=== PATIENT | female | born 1970 | race Caucasian/White ===

== ENCOUNTER → 2020-01-12 07:15 | Outpatient (CLI) | payer OTHER, SELFPAY ==
[2020-01-12 07:50] LABS: Hematocrit 42.7 % (37-47); Hemoglobin 13.8 g/dL (12.0-15.0); Mean Corp Hgb Conc 32.3 g/dL (32-36); Mean Corpuscular Hgb 32.3 pg (27.0-32.0); Mean Platelet Vol. 9.8 fl (6.2-12.0); Platelet Count 350 K/mm3 (150-450); RBC Distribution Width CV 14.4 % (11.6-14.6); RBC Distribution Width SD 53.1 fl (35.1-43.9); Red Blood Count 4.27 M/mm3 (4.2-5.4); White Blood Count 7.9 K/mm3 (4.4-11.0)
[2020-01-12 08:22] LABS: AST(SGOT) 45 U/L (15-37); Alanine Aminotransfer ALT/SGPT 60 U/L (13-56); Albumin, Serum 3.6 g/dL (3.2-5.0); Alkaline Phosphatase 76 U/L (45-117); Amylase 30 U/L (25-115); Anion Gap 9 (5-15); BUN 16 mg/dL (7-18); BUN/Creat Ratio 17.2 RATIO (10-20); Calcium,Total 9.3 mg/dL (8.5-10.1); Chloride 106 mmol/L (98-107); Cholesterol 175 mg/dL (200); Creatinine, Serum 0.93 mg/dL (0.55-1.02); EST Glomerular Filtration Rate 68 mL/min (>60); Est Glom Filt Rate - Afr Amer 82 mL/min (>60); Free T3 2.4 pg/mL (2.18-3.98); Globulin 3.6 g/dL (2.2-4.2); Glucose 90 mg/dL (74-106); High Density Lipoprotein 65 mg/dL; Lipase 139 U/L (73-393); Potassium 3.6 mmol/L (3.5-5.1); Protein, Total 7.2 g/dL (6.4-8.2); Sodium Level 142 mmol/L (136-145); T4 Free Direct 1.37 ng/dL (0.76-1.46); Thyroid Stim Hormone (TSH) 4.85 uIU/mL (0.358-3.74); Triglycerides 65 mg/dL; Very Low Density Lipoprotein 13 mg/dL (5-40)
[2020-01-15 05:11] LABS: Cancer Antigen 125 12.4 U/mL (0.0-38.1)
== END ==
LOC: LAB 07:22
PROVIDERS: PCP Nurse Practitioner Primary Care; Referring Provider Nurse Practitioner Primary Care; Visit Provider Nurse Practitioner Primary Care
DX: R10.11 Right upper quadrant pain (principal); I10 Essential (primary) hypertension; E03.9 Hypothyroidism, unspecified; E04.1 Nontoxic single thyroid nodule; E78.5 Hyperlipidemia, unspecified; R53.83 Other fatigue; R68.81 Early satiety
CPT/HCPCS: 80053; 80061; 82150; 83690; 84439; 84443; 84481; 85027; 86304

== ENCOUNTER 2020-12-02 16:11 | Observation (INO) | payer OTHER, SELFPAY ==
[2020-12-02] VITALS (7 sets, daily range): BP systolic 123–165; BP diastolic 73–111; PULSE 74–93; RESP 16–18; TEMP 36.4–37.1; O2SAT 88–95; BMI 36.6; BMI 38.9
--- NOTE | 2020-12-02 16:43 | EKG12_ITS ---
Test Reason : DIZZINESS Blood Pressure : / mmHG Vent. Rate : 081 BPM Atrial Rate : 081 BPM P-R Int : 168 ms QRS Dur : 078 ms QT Int : 396 ms P-R-T Axes : 057 025 038 degrees QTc Int : 460 ms Normal sinus rhythm Septal infarct , age undetermined Abnormal ECG Confirmed by LIO SOMMERS, SANJEEV ([id number]), associate entertainment editor DAMON AGUILAR ([id number]) on 12/04/2020 9:05:31 AM Referred By: WALTER Confirmed By:SANJEEV VACA MD
--- NOTE | 2020-12-02 16:44 | EX.ED.DYSGE1 ---
HPI History of Present Illness Chief Complaint: Dizziness Informant: patient Onset/Context/Timing Onset: Yesterday Timing: Continuous Current Severity: Mild Maximum Severity: Mild Narrative Narrative: 50-year-old female history of hypothyroidism, hypertension and prior breast cancer. States that she has been shaky since yesterday. States that she does not feel good. She denies any headache, chest pain or shortness of breath. She denies any nausea, vomiting or diarrhea. She denies any dysuria. Just says overall she feels very tired and has slept more. She denies any recent hospitalization or illness. Prior similar symptoms: No Recent Illness/Hospitalization: No PFSH PFSH Medical History History of breast cancer HTN (hypertension) Hypothyroid Home Medications hydrochlorothiazide 50 mg PO DAILY 12/02/20 [History Last Taken Unknown] levothyroxine 137 mcg PO DAILY 12/02/20 [History Last Taken Unknown] lisinopril 40 mg PO DAILY 12/02/20 [History Last Taken Unknown] Allergy/AdvReac Type Severity Reaction Status Date / Time dextrose 5 % in water Allergy Hives Verified 12/02/20 16:13 [From Zyvox] linezolid [From Zyvox] Allergy Hives Verified 12/02/20 16:13 Penicillins Allergy Hives Verified 12/02/20 16:12 Sulfa (Sulfonamide Allergy Hives Verified 12/02/20 16:12 Antibiotics) vancomycin Allergy Hives Verified 12/02/20 16:12 Surgical History H/O mastectomy H/O: hysterectomy Social History Smoking Status: Never smoker ROS ROS ED ROS Narrative Middle-aged female with limited other symptoms are not feeling shaky. Review of Systems ROS Unobtainable: Denies due to encephalopathy Constitutional Constitutional ED: Denies fever(s), sweats or weight loss Eyes Eyes: Denies change in vision ENT ENT ED: Denies ear pain or sore throat Cardiovascular Cardiovascular: Denies chest pain or palpitations Respiratory/Chest Respiratory/Chest: Denies cough or dyspnea Gastrointestinal Gastrointestinal: Denies abdominal pain, diarrhea or vomiting Genitourinary Genitourinary ED: Denies dysuria or hematuria Musculoskeletal Musculoskeletal: Denies arthralgias or myalgias Integumentary Denies rash Neurologic Neurologic: Denies headache(s) Psychiatric Psychiatric: Denies depression Endocrine Endocrinology: Denies polyuria Allergic/Immunologic Allergic/Immunologic ED: Denies urticaria EXAM Physical Exam Narrative Exam Narrative: Middle-aged female no acute distress. Seems anxious. Her vital signs are stable afebrile. She does not look septic nor toxic nor dehydrated. Her mother is at bedside. HEENT exam unremarkable. Atraumatic. Pupils round reactive light. Extra motions are intact. Normal speech. No facial droop. Neck nontender. No lymphadenopathy. Lungs clear to auscultation bilaterally. Heart regular rhythm rate about 90 no murmur. Chest wall nontender. Abdomen soft nontender. Patient moving all 4 extremities. Calves nontender without edema. Back nontender. Neurologically she is awake and alert with no focal motor deficits. Const Vital Signs: 12/02/20 16:14 12/02/20 16:41 12/02/20 18:11 Temperature 97.6 F L Temperature Source Temporal Pulse Rate 93 74 Respiratory Rate 16 18 Respiratory Pattern Normal Blood Pressure 165/73 H 123/79 H Blood Pressure Mean 103 93 Pulse Ox 93 94 Oxygen Delivery Method Room Air Room Air 12/02/20 20:00 Temperature Temperature Source Pulse Rate 81 Respiratory Rate 18 Respiratory Pattern Blood Pressure 141/111 H Blood Pressure Mean 121 Pulse Ox 94 Oxygen Delivery Method Room Air HEENT Reports moist mucous membranes Negative for trauma or tenderness Eyes PERRL and EOMs intact bilaterally Neck no lymphadenopathy, supple and no JVD General: Negative for tenderness Chest Wall inspection of chest normal Resp normal respiratory effort and clear to auscultation bilaterally Auscultation: Negative for rales, rhonchi, wheezes or diminished lung sounds Cardio regular rate, regular rhythm and no murmurs GI normal to inspection, nondistended, normoactive bowel sounds, non-tender, non-distended and no masses Auscultation: normoactive bowel sounds Palpation: soft; Negative for tender, guarding or rebound tenderness present Back/Spine no CVA tenderness General Back: Negative for CVA tenderness Extremity normal to inspection General Extremety ED: Negative for edema or tenderness General Extremity: Negative for edema Neuro oriented x3 and CN's II-XII intact bilaterally Sensorium / Orientation: alert; Negative for orientation impaired Motor Exam: strength 5/5 throughout; Negative for general weakness Psych mental status grossly normal Mood & Affect: anxious Skin no rashes or lesions noted and no wounds MDM MDM MDM Narrative Medical decision making narrative: Middle-aged female vital signs are stable afebrile. Clinically seems anxious. States that she has had shakiness for the last 1 to 2 days. Really denies any other symptoms. Exams basically unremarkable. Screening labs are being obtained. Multiple repeat exams no change. Patient I went over all of her test results. I do not have a specific cause for her symptoms. Her exam otherwise is unchanged. I will have her evaluated by the hospitalist. Lab Data Attestation: I reviewed the patient's lab results. Labs: Laboratory Results - last 24 hr 12/02/20 12/02/20 16:39 16:39 WBC 7.2 RBC 4.58 Hgb 15.1 H Hct 44.1 MCV 96.3 MCH 33.0 H MCHC 34.2 RDW Std Deviation 50.6 H RDW Coeff of [place] 14.3 Plt Count 440 MPV 8.8 Immature Gran % (Auto) 0.300 Neut % (Auto) 48.4 Lymph % (Auto) 38.9 [place] % (Auto) 9.6 Eos % (Auto) 1.8 Baso % (Auto) 1.0 Absolute Neuts (auto) 3.5 Absolute Lymphs (auto) 2.80 Nucleated RBC % 0 Sodium 129 L Potassium 3.6 Chloride 92 L Carbon Dioxide 25.0 Anion Gap 12 BUN 11 Creatinine 0.85 Estim Creat Clear Calc 61.23 Est GFR (MDRD) Af Amer 90 Est GFR (MDRD) Non-Af 74 BUN/Creatinine Ratio 12.9 Glucose 94 Calcium 8.7 TSH 1.58 CBC unremarkable with a white count of 7 and hemoglobin of 15. No bands. Electrolytes unremarkable except her sodium is low at 129. Normal gap at 12. Normal creatinine. TSH is normal. CAT scan was obtained without contrast of the brain shows no acute abnormality. Reviewed by me and read by the radiologist. EKG showed a normal sinus rhythm with a rate of 81. Radiography Diagnostic Testing: Radiology Impression Brain CT 12/02/20 19:38 IMPRESSION: No acute intracranial findings. Individualized dose optimization techniques were used for this CT. at 2009 Reported and signed by: Rah Haskins MD Electronically Signed: Rah Haskins MD at 20:08 EDT Tel , Service support , EKG Initial EKG: Attestation: I personally reviewed and interpreted this EKG as follows: Interpretation: Sinus Rhythm and No Acute Injury Pattern Comments: Normal sinus rhythm rate 81 without any acute signs of VA nor ischemia. Prior EKG tracings: not available for review Discharge Plan Triage Chief Complaint: Dizziness ED Provider: Indio Schuster Dx/Rx/DC Orders Clinical Impression: Acute hyponatremia, Shakiness Prescriptions: No Action hydrochlorothiazide 50 mg Tablet 50 mg PO DAILY RF: 0 lisinopril 40 mg Tablet 40 mg PO DAILY RF: 0 levothyroxine 137 mcg Capsule 137 mcg PO DAILY RF: 0 Primary Care Provider: Care Physician,No Primary Referrals: Care Physician,No Primary [Primary Care Provider] -
[2020-12-02 17:08] LABS: Absolute Neutrophil Count 3.5 X10^3/uL (2.0-7.7); Basophil# 0.07 X10^3/uL; Eosinophil# 0.13 X10^3/uL; Eosinophils% 1.8 % (0-5); Hematocrit 44.1 % (37-47); Hemoglobin 15.1 g/dL (12.0-15.0); Lymphocyte % 38.9 % (19-41); Mean Corp Hgb Conc 34.2 g/dL (32-36); Mean Corpuscular Volume 96.3 fL (81-99); Mean Platelet Vol. 8.8 fl (6.2-12.0); Monocyte# 0.69 X10^3/uL; Monocyte% 9.6 % (0-10); NRBC Flagged by Analyzer 0 % (0-5); Neutrophil # 3.49 X10^3/uL (2.7-7.7); Neutrophil % 48.4 % (47-70); Platelet Count 440 K/mm3 (150-450); RBC Distribution Width CV 14.3 % (11.6-14.6); RBC Distribution Width SD 50.6 fl (35.1-43.9); Red Blood Count 4.58 M/mm3 (4.2-5.4); White Blood Count 7.2 K/mm3 (4.4-11.0)
[2020-12-02 17:43] LABS: Anion Gap 12 (5-15); BUN 11 mg/dL (7-18); BUN/Creat Ratio 12.9 RATIO (10-20); Calcium,Total 8.7 mg/dL (8.5-10.1); Chloride 92 mmol/L (98-107); Creatinine, Serum 0.85 mg/dL (0.55-1.02); EST Glomerular Filtration Rate 74 mL/min (>60); Est Glom Filt Rate - Afr Amer 90 mL/min (>60); Estimated Creatinine Clearance 61.23 ml/min; Glucose 94 mg/dL (74-106); Potassium 3.6 mmol/L (3.5-5.1); Sodium Level 129 mmol/L (136-145); Thyroid Stim Hormone (TSH) 1.58 uIU/mL (0.358-3.74)
--- NOTE | 2020-12-02 19:38 | CT_ITS ---
HISTORY: ms change TECHNIQUE: Multiple axial images were obtained of the brain without intravenous contrast. A radiation dose optimization technique was used for this scan. IV Contrast dosage and agent: None. COMPARISON: None FINDINGS: # of images incl. paperwork: 239 PARANASAL SINUSES AND MASTOID AIR CELLS: Clear. INTRACRANIAL HEMORRHAGE: None. BRAIN PARENCHYMA: No CT evidence of stroke. No intracranial masses. There is preservation of the shearer/white matter interface. Posterior fossa structures are unremarkable. CSF SPACES: Appropriate for age. There is no hydrocephalus. MASS EFFECT: None. CALVARIUM: Intact. CT/Brain/Head without Contrast IMPRESSION: No acute intracranial findings. Individualized dose optimization techniques were used for this CT. at 2009 Reported and signed by: Rah Haskins MD Electronically Signed: Rah Haskins MD at 20:08 EDT Tel , Service support ,
[2020-12-02] MEDS: Ondansetron 4 MG/2 ML Vial IV (20:02)
[2020-12-02] MEDS: Ketorolac 30 MG/ML Syringe IV (20:03)
--- NOTE | 2020-12-02 20:53 | PCM.HP.STD ---
HPI - General HPI Narrative ORA ADAMS, is a 50 F who presents today with dizziness. Patient reports that it feels like going back and forth sensation in her head and that this has led to her feeling anxious. Patient reports that she has basically been more over the past 2 days. Patient denies fever, chills, shortness of breath, chest pain, nausea, vomiting. Patient states that she does not feel right but denies feeling ill. Patient past medical history includes hypertension, hypothyroidism and breast cancer for which she underwent a bilateral mastectomy. [facility] Medical History History of breast cancer HTN (hypertension) Hypothyroid Home Medications hydrochlorothiazide 50 mg PO DAILY 12/02/20 [History Last Taken 12/01/20] levothyroxine 137 mcg PO DAILY 12/02/20 [History Last Taken 12/01/20] lisinopril 40 mg PO DAILY 12/02/20 [History Last Taken 12/01/20] omeprazole 40 mg PO DAILY 12/02/20 [History Last Taken 11/30/20] trazodone 25 - 50 mg PO DAILY 12/02/20 [History Last Taken 1 Week Ago ~11/25/20] Allergy/AdvReac Type Severity Reaction Status Date / Time dextrose 5 % in water Allergy Hives Verified 12/02/20 16:13 [From Zyvox] linezolid [From Zyvox] Allergy Hives Verified 12/02/20 16:13 Penicillins Allergy Hives Verified 12/02/20 16:12 Sulfa (Sulfonamide Allergy Hives Verified 12/02/20 16:12 Antibiotics) vancomycin Allergy Hives Verified 12/02/20 16:12 Surgical History H/O mastectomy H/O: hysterectomy Social History Smoking Status: Never smoker ROS Constitutional Constitutional: Reports daytime sleepiness, lethargy and poor appetite; Denies anorexia or fever(s) Cardiovascular Cardiovascular: Denies chest pain, edema or palpitations Respiratory/Chest Respiratory/Chest: Denies cough, hemoptysis, shortness of breath at rest or shortness of breath with exertion Gastrointestinal Gastrointestinal: Denies abdominal pain, constipation, diarrhea, nausea or vomiting Genitourinary Genitourinary: Denies dysuria Musculoskeletal Musculoskeletal: Denies back pain, extremity pain or joint pain Integumentary Integumentary: Denies dry skin, rash or wounds Neurologic Neurologic: Reports abnormal movements, abnormal speech, disequilibrium, dizziness and lack of coordination Psychiatric Psychiatric: Reports anxiety Hematologic/Lymphatic Hematologic/Lymphatic: Denies easy bleeding or easy bruising Vital Signs Vital Signs Vital Signs: 12/02/20 16:14 12/02/20 16:41 12/02/20 18:11 Temperature 97.6 F L Temperature Source Temporal Pulse Rate 93 74 Respiratory Rate 16 18 Respiratory Pattern Normal Blood Pressure 165/73 H 123/79 H Blood Pressure Mean 103 93 Pulse Ox 93 94 Oxygen Delivery Method Room Air Room Air 12/02/20 20:00 Temperature Temperature Source Pulse Rate 81 Respiratory Rate 18 Respiratory Pattern Blood Pressure 141/111 H Blood Pressure Mean 121 Pulse Ox 94 Oxygen Delivery Method Room Air Physical Exam Const alert and oriented x3 General Appearance: cooperative HEENT normocephalic and head/scalp atraumatic Eyes PERRL and EOMs intact bilaterally Neck supple, no JVD and thyroid normal General: trachea midline Lymph Lymphatic: no lymphadenopathy noted Resp normal respiratory effort, normal air movement and clear to auscultation bilaterally Cardio regular rate, regular rhythm, S1 normal heart sound and S2 normal heart sound GI normal to inspection, nondistended, normoactive bowel sounds, soft to palpation and non-distended Extremity normal capillary refill and no clubbing, cyanosis or edema General Extremity: no tenderness to palpation of joints or extremities Skin General Skin Exam: no breakdown and turgor normal Lesions: no lesions Rashes: no rashes Neuro Sensorium / Orientation: awake, alert, oriented to person, oriented to place and oriented to time Speech: speech abnormal Details: Positive for stuttering Gait (Neuro): ataxic Psych Mood & Affect: anxious Lab / Micro Data Result Diagrams: 12/02/20 16:39 12/02/20 16:39 Labs: Laboratory Results - last 24 hr 12/02/20 12/02/20 16:39 16:39 WBC 7.2 RBC 4.58 Hgb 15.1 H Hct 44.1 MCV 96.3 MCH 33.0 H MCHC 34.2 RDW Std Deviation 50.6 H RDW Coeff of [place] 14.3 Plt Count 440 MPV 8.8 Immature Gran % (Auto) 0.300 Neut % (Auto) 48.4 Lymph % (Auto) 38.9 [place] % (Auto) 9.6 Eos % (Auto) 1.8 Baso % (Auto) 1.0 Absolute Neuts (auto) 3.5 Absolute Lymphs (auto) 2.80 Nucleated RBC % 0 Sodium 129 L Potassium 3.6 Chloride 92 L Carbon Dioxide 25.0 Anion Gap 12 BUN 11 Creatinine 0.85 Estim Creat Clear Calc 61.23 Est GFR (MDRD) Af Amer 90 Est GFR (MDRD) Non-Af 74 BUN/Creatinine Ratio 12.9 Glucose 94 Calcium 8.7 TSH 1.[address] 12/02/20 19:38 IMPRESSION: No acute intracranial findings. Individualized dose optimization techniques were used for this CT. at 2009 Reported and signed by: Rah Haskins MD Electronically Signed: Rah Haskins MD at 20:08 EDT Tel , Service support , Assessment & Plan Assessment/Plan (1) Acute hyponatremia: (2) Shakiness: PLAN: 1.Acute hyponatremia -Admit to PCU for observation, likely due to use of diuretics -NS 100ml/hr -VS per protocol -CBC, CMP, Phos in am -Mg level now -Urine sodium and chloride ordered -Hold HCTZ for now 2.Shakiness -PT/OT to eval and treat -PRN ativan ordered Will continue medications for patients chronic conditions with the exception of HCTZ. DVT prophylaxis-not indicated observation status This patient was seen by Jocy Dickey, NATALIIA-C under the supervision of Dr. Weinstein
[2020-12-02 21:32] LABS: Magnesium 2.2 mg/dL (1.6-2.6)
[2020-12-02] MEDS: LORazepam 2 MG/ML Syringe 1 MG IV (21:43)
[2020-12-03] VITALS (11 sets, daily range): BP systolic 121–136; BP diastolic 80–94; PULSE 67–105; RESP 15–18; TEMP 36.2–37.2; O2SAT 92–96
[2020-12-03] MEDS: 0.9% Normal Saline 1,000 ML 100 ML IV ×2 (00:15→09:26)
[2020-12-03] MEDS: traZODone 50 MG Tablet 25 MG PO ×2 (00:15→21:25)
[2020-12-03] MEDS: Ondansetron 4 MG/2 ML Vial IV ×2 (02:16→09:27)
[2020-12-03] MEDS: proMETHazine 25 MG/ML Syringe 12.5 MG IM (04:32)
[2020-12-03] MEDS: LORazepam 2 MG/ML Syringe 1 MG IV (04:39)
[2020-12-03] MEDS: Levothyroxine 137 MCG Tablet PO (05:04)
[2020-12-03 06:31] LABS: Absolute Lymphocyte Count 0.99 X10^3/uL (0.83-4.51); Absolute Neutrophil Count 6.1 X10^3/uL (2.0-7.7); Basophil# 0.05 X10^3/uL; Basophil% 0.6 % (0-1); Eosinophil# 0.04 X10^3/uL; Eosinophils% 0.5 % (0-5); Hematocrit 41.6 % (37-47); Hemoglobin 14.1 g/dL (12.0-15.0); Lymphocyte # 0.99 X10^3/ul (0.83-4.51); Lymphocyte % 12.7 % (19-41); Mean Corp Hgb Conc 33.9 g/dL (32-36); Mean Corpuscular Hgb 32.9 pg (27.0-32.0); Mean Corpuscular Volume 97.2 fL (81-99); Monocyte# 0.58 X10^3/uL; Monocyte% 7.5 % (0-10); NRBC Flagged by Analyzer 0 % (0-5); Neutrophil # 6.07 X10^3/uL (2.7-7.7); Neutrophil % 78.2 % (47-70); Platelet Count 379 K/mm3 (150-450); RBC Distribution Width SD 50.1 fl (35.1-43.9); Red Blood Count 4.28 M/mm3 (4.2-5.4); White Blood Count 7.8 K/mm3 (4.4-11.0)
[2020-12-03 06:58] LABS: ALB/GLOB Ratio 0.9 RATIO (0.9-2.4); AST(SGOT) 109 U/L (15-37); Alanine Aminotransfer ALT/SGPT 80 U/L (13-56); Albumin, Serum 3.3 g/dL (3.2-5.0); Alkaline Phosphatase 72 U/L (45-117); Anion Gap 11 (5-15); BUN 13 mg/dL (7-18); BUN/Creat Ratio 16.1 RATIO (10-20); Calcium,Total 8.1 mg/dL (8.5-10.1); Chloride 94 mmol/L (98-107); Creatinine, Serum 0.81 mg/dL (0.55-1.02); EST Glomerular Filtration Rate 79 mL/min (>60); Est Glom Filt Rate - Afr Amer 96 mL/min (>60); Estimated Creatinine Clearance 64.26 ml/min; Globulin 3.7 g/dL (2.2-4.2); Glucose 89 mg/dL (74-106); Phosphorus 2.8 mg/dL (2.5-4.9); Potassium 3.6 mmol/L (3.5-5.1); Sodium Level 131 mmol/L (136-145)
[2020-12-03] MEDS: Pantoprazole Sodium 40 MG Tablet PO (09:29)
[2020-12-03] MEDS: Lisinopril 40 MG Tablet PO (09:30)
[2020-12-03 11:54] LABS: Urine Chloride < 10 mmol/L (Not Establ.); Urine Sodium 5 mmol/L (Not Establ.)
--- NOTE | 2020-12-03 12:27 | PCM.PN.HOSP ---
Subjective Subjective: Patient was seen and examined. She has not had any tremors today. She admits to drinking 1-2 cocktails a day and the size is quite significant. She drinks vodka every day. She denied any history of alcohol withdrawal. She denied any recent change in her medication. Objective Data Objective Data Vital Signs: Vital Signs Temp Pulse Resp BP Pulse Ox 97.9 F 104 H 16 121/86 H 93 12/03/20 09:20 12/03/20 09:20 12/03/20 09:20 12/03/20 09:20 12/03/20 09:20 Oxygen Flow Rate (L/min) 2 Oxygen Delivery Method Room Air Weight: 96.6 kg Body Mass Index (BMI) 38.9 Intake & Output: Intake and Output for Last 24 Hours 12/01/20 12/02/20 12/03/20 23:59 23:59 23:59 Intake Total 1478.33 / 1478.33 Balance 1478.33 / 1478.33 Lab / Micro Data Result Diagrams: 12/03/20 06:04 12/03/20 06:04 Labs: Laboratory Results - last 24 hr 12/02/20 12/02/20 12/02/20 16:39 16:39 16:39 WBC 7.2 RBC 4.58 Hgb 15.1 H Hct 44.1 MCV 96.3 MCH 33.0 H MCHC 34.2 RDW Std Deviation 50.6 H RDW Coeff of [place] 14.3 Plt Count 440 MPV 8.8 Immature Gran % (Auto) 0.300 Neut % (Auto) 48.4 Lymph % (Auto) 38.9 [place] % (Auto) 9.6 Eos % (Auto) 1.8 Baso % (Auto) 1.0 Absolute Neuts (auto) 3.5 Absolute Lymphs (auto) 2.80 Nucleated RBC % 0 Sodium 129 L Potassium 3.6 Chloride 92 L Carbon Dioxide 25.0 Anion Gap 12 BUN 11 Creatinine 0.85 Estim Creat Clear Calc 61.23 Est GFR (MDRD) Af Amer 90 Est GFR (MDRD) Non-Af 74 BUN/Creatinine Ratio 12.9 Glucose 94 Calcium 8.7 Phosphorus Magnesium 2.2 Total Bilirubin AST ALT Alkaline Phosphatase Total Protein Albumin Globulin Albumin/Globulin Ratio TSH 1.58 Ur Random Sodium Urine Chloride 12/03/20 12/03/20 12/03/20 06:04 06:04 11:11 WBC 7.8 RBC 4.28 Hgb 14.1 Hct 41.6 MCV 97.2 MCH 32.9 H MCHC 33.9 RDW Std Deviation 50.1 H RDW Coeff of [place] 14.0 Plt Count 379 MPV 9.0 Immature Gran % (Auto) 0.500 Neut % (Auto) 78.2 H Lymph % (Auto) 12.7 L [place] % (Auto) 7.5 Eos % (Auto) 0.5 Baso % (Auto) 0.6 Absolute Neuts (auto) 6.1 Absolute Lymphs (auto) 0.99 Nucleated RBC % 0 Sodium 131 L Potassium 3.6 Chloride 94 L Carbon Dioxide 26.0 Anion Gap 11 BUN 13 Creatinine 0.81 Estim Creat Clear Calc 64.26 Est GFR (MDRD) Af Amer 96 Est GFR (MDRD) Non-Af 79 BUN/Creatinine Ratio 16.1 Glucose 89 Calcium 8.1 L Phosphorus 2.8 Magnesium Total Bilirubin 1.60 H AST 109 H ALT 80 H Alkaline Phosphatase 72 Total Protein 7.0 Albumin 3.3 Globulin 3.7 Albumin/Globulin Ratio 0.9 TSH Ur Random Sodium 5 Urine Chloride < 10 Radiography Diagnostic Testing: Radiology Impression Brain CT 12/02/20 19:38 IMPRESSION: No acute intracranial findings. Individualized dose optimization techniques were used for this CT. at 2009 Reported and signed by: Rah Haskins MD Electronically Signed: Rah Haskins MD at 20:08 EDT Tel , Service support , Physical Exam Narrative Physical exam: General: Alert, Oriented x3, Cooperative, No apparent distress, Well developed HEENT: Atraumatic Oral: Moist Mucosa Neck: Supple Lungs: Clear to auscultation Cardiovascular: HS I+II, regular, no murmurs Abdomen: Bowel Sounds Present, Soft, Non Tender Extremities: No edema Skin: No rashes, No breakdown Neurological: Grossly intact Psych/Mental Status: Appropriate Assessment & Plan Assessment/Plan (1) Acute hyponatremia: (2) Shakiness: PLAN: 1.Acute hyponatremia, improved from 129-131 Likely etiology is from chronic alcohol use versus increase water intake versus hydrochlorothiazide use TSH is normal Will discontinue IV fluids Continue to hold off on hydrochlorothiazide Repeat BMP in a.m. 2.Tremors likely related to chronic alcohol use versus alcohol withdrawal Tremors improved with Ativan 3. Elevated liver function tests secondary to chronic alcohol use Trend labs in a.m. 4. Rest of her chronic medical conditions including anxiety and hypothyroidism -Home medication continued Visit Charges Inpatient E&M: 18650 Subs Hosp L2
[2020-12-03] MEDS: Acetaminophen 325 MG Tablet 650 MG PO (20:18)
[2020-12-04] VITALS (7 sets, daily range): BP systolic 115–135; BP diastolic 77–95; PULSE 51–72; RESP 16; TEMP 36.7–36.9; O2SAT 93–98
[2020-12-04] MEDS: Levothyroxine 137 MCG Tablet PO (05:58)
[2020-12-04] MEDS: 0.9% Saline Lock 10 ML Syringe IV (06:01)
[2020-12-04 06:58] LABS: Absolute Lymphocyte Count 0.94 X10^3/uL (0.83-4.51); Basophil# 0.04 X10^3/uL; Basophil% 0.9 % (0-1); Eosinophil# 0.13 X10^3/uL; Eosinophils% 2.8 % (0-5); Hematocrit 40.3 % (37-47); Hemoglobin 13.5 g/dL (12.0-15.0); Lymphocyte # 0.94 X10^3/ul (0.83-4.51); Lymphocyte % 20.4 % (19-41); Mean Corp Hgb Conc 33.5 g/dL (32-36); Mean Corpuscular Hgb 33.2 pg (27.0-32.0); Mean Platelet Vol. 9.1 fl (6.2-12.0); Monocyte# 0.46 X10^3/uL; NRBC Flagged by Analyzer 0 % (0-5); Neutrophil # 3.02 X10^3/uL (2.7-7.7); Neutrophil % 65.7 % (47-70); Platelet Count 317 K/mm3 (150-450); RBC Distribution Width CV 14.4 % (11.6-14.6); RBC Distribution Width SD 52.3 fl (35.1-43.9); Red Blood Count 4.07 M/mm3 (4.2-5.4); White Blood Count 4.6 K/mm3 (4.4-11.0)
[2020-12-04 07:30] LABS: ALB/GLOB Ratio 0.9 RATIO (0.9-2.4); AST(SGOT) 74 U/L (15-37); Alanine Aminotransfer ALT/SGPT 64 U/L (13-56); Albumin, Serum 3.1 g/dL (3.2-5.0); Alkaline Phosphatase 66 U/L (45-117); Anion Gap 7 (5-15); BUN 13 mg/dL (7-18); BUN/Creat Ratio 14.2 RATIO (10-20); Calcium,Total 8.9 mg/dL (8.5-10.1); Chloride 96 mmol/L (98-107); Creatinine, Serum 0.92 mg/dL (0.55-1.02); EST Glomerular Filtration Rate 69 mL/min (>60); Est Glom Filt Rate - Afr Amer 83 mL/min (>60); Estimated Creatinine Clearance 56.57 ml/min; Globulin 3.5 g/dL (2.2-4.2); Glucose 103 mg/dL (74-106); Potassium 3.7 mmol/L (3.5-5.1); Protein, Total 6.6 g/dL (6.4-8.2); Sodium Level 131 mmol/L (136-145)
--- NOTE | 2020-12-04 08:33 | US_ITS ---
STUDY: ABDOMINAL ULTRASOUND - RIGHT UPPER QUADRANT REASON FOR VISIT: Female, 50 years old Elevated liver enzymes TECHNIQUE: Ultrasound evaluation of the right upper quadrant was performed with real-time and static shearer-scale imaging. TECHNICAL QUALITY: Adequate. COMPARISON: None. FINDINGS: Liver: The liver is enlarged and measures 20.1 cm. There is increased echogenicity consistent with fatty infiltration. The bile ducts are within normal limits. There is hepatic color flow. The direction of portal flow is hepatopetal. There is no demonstrated mass lesion. Gallbladder: Normal distended gallbladder. The gallbladder wall measures 2.0 mm. There is a negative sonographic [place]''s sign. There is no pericholecystic fluid. There are no gallstones. Common Bile Duct (C.B.D.): The common bile duct measures 4 mm. Pancreas: Normal size of the head, body and tail of the pancreas. There is increased echogenicity of the pancreas. There is no demonstrated pancreatic mass or cyst. Right Kidney: Normal size of the right kidney. The right kidney measures 10.4 cm x 5.8 cm x 4.6 cm. Normal renal cortex. The right cortex measures 1.1 cm. There is no demonstrated renal mass or cyst. There is no right hydronephrosis. US/Liver IMPRESSION: Hepatomegaly and diffuse fatty infiltration of the liver. Electronically Signed: Ian Felton MD at 10:47 EDT , Service support ,
[2020-12-04 09:08] LABS: Bilirubin, Direct 0.57 mg/dL (0.00-0.30)
[2020-12-04] MEDS: Pantoprazole Sodium 40 MG Tablet PO (10:17)
[2020-12-04] MEDS: Lisinopril 40 MG Tablet PO (10:17)
--- NOTE | 2020-12-04 13:05 | DS.PCM_ITS ---
Providers Date of Admission: 12/02/20 Date of Discharge: 12/04/20 Primary Care Physician: No Primary Care Phys Reason For Visit: DIZZINESS / ANXIOUS Diagnosis Discharge Diagnosis (1) Acute hyponatremia: Status: Acute Code(s): E87.1 - Hypo-osmolality and hyponatremia (2) Shakiness: Status: Resolved Code(s): R25.1 - Tremor, unspecified (3) Elevated liver enzymes: Status: Acute Code(s): R74.8 - Abnormal levels of other serum enzymes (4) Alcohol abuse: Status: Chronic Code(s): F10.10 - Alcohol abuse, uncomplicated Medications at Discharge Home Medications levothyroxine 137 mcg PO DAILY 12/02/20 lisinopril 40 mg PO DAILY 12/02/20 omeprazole 40 mg PO DAILY 12/02/20 trazodone 25 - 50 mg PO QHS PRN 12/02/20 Hospital Course Operations None Procedures None and - (liver ultrasound 12/04/20) Summary of Care Provided Minutes Spent on Discharge: 45 Hospital Course: 50 y/o female with PMHx of chronic alcohol use comes with complains of dizziness and shakiness/tremors. Patient drinks 1-2 drinks of vodka daily. She has not stopped or decreased it. She has not gone over either. Patient's TSH was normal - 1.58. She was admitted to the telemetry floor and monitored. Her periods of shakiness are improved with Ativan. Discussed the possibility of alcohol withdrawal or alcohol-related tremors with patient. Recommended that she gradually quit. Recommended referral to [facility]. Patient did not want to see 180 during the hospital stay. She had hyponatremia that improved. She had hypokalemia that resolved. She had elevated liver function tests, that gradually improved. She was asked to follow-up with her primary care doctor within 1 week for repeat blood work Physical Exam Narrative General: Alert, Oriented x3, Cooperative, No apparent distress, Well developed HEENT: Atraumatic Oral: Moist Mucosa Neck: Supple Lungs: Clear to auscultation Cardiovascular: HS I+II, regular, no murmurs Abdomen: Bowel Sounds Present, Soft, Non Tender Extremities: No edema Skin: No rashes, No breakdown Neurological: Grossly intact Psych/Mental Status: Appropriate ABG / Lab / Microbiology Data Result Diagrams: 12/04/20 06:35 12/04/20 06:35 Laboratory: Laboratory Results - last 24 hr 12/04/20 12/04/20 12/04/20 06:35 06:35 06:35 WBC 4.6 RBC 4.07 L Hgb 13.5 Hct 40.3 MCV 99.0 MCH 33.2 H MCHC 33.5 RDW Std Deviation 52.3 H RDW Coeff of [place] 14.4 Plt Count 317 MPV 9.1 Immature Gran % (Auto) 0.200 Neut % (Auto) 65.7 Lymph % (Auto) 20.4 [place] % (Auto) 10.0 Eos % (Auto) 2.8 Baso % (Auto) 0.9 Absolute Neuts (auto) 3.0 Absolute Lymphs (auto) 0.94 Nucleated RBC % 0 Sodium 131 L Potassium 3.7 Chloride 96 L Carbon Dioxide 28.0 Anion Gap 7 BUN 13 Creatinine 0.92 Estim Creat Clear Calc 56.57 Est GFR (MDRD) Af Amer 83 Est GFR (MDRD) Non-Af 69 BUN/Creatinine Ratio 14.2 Glucose 103 Calcium 8.9 Total Bilirubin 3.10 H 3.10 H Direct Bilirubin 0.57 H Indirect Bilirubin 2.50 H AST 74 H ALT 64 H Alkaline Phosphatase 66 Total Protein 6.6 Albumin 3.1 L Globulin 3.5 Albumin/Globulin Ratio 0.9 Radiography Diagnostic Testing: Radiology Impression Liver Ultrasound 12/04/20 08:33 IMPRESSION: Hepatomegaly and diffuse fatty infiltration of the liver. Electronically Signed: Ian Felton MD at 10:47 EDT , Service support , D/C Instructions Discharge Diet: 2000 mg Sodium Diet Discharge Activity: Return to Normal Activity Meaningful Use Info Meaningful Use Diagnoses (Choose all that apply): None applicable Discharge Plan Admission Admit Date/Time: 12/02/20 20:52 Primary Reason for Your Visit: Acute hyponatremia Attending Provider: Lyn Gonzalez Primary Care Provider: Care PhysicianAriadna Primary Instructions Additional Instructions / Restrictions: Patient Problems: Altered Health Status related to Hospitalization Patient Goals: *Optimal Level of Health *Keep Appointments *Medication Compliance *Remain SafeTake note of changes to your medication. You need to have blood work to check on your kidney and liver function within 1 to 2 weeks. Continue to abstain from alcohol. You have been given resources for [facility]. Continue to measure your blood pressure daily. Let your physician know if your blood pressure is elevated more than 160/90. Discharge Orders/Prescriptions Prescriptions: Continued lisinopril 40 mg Tablet 40 mg PO DAILY RF: 0 levothyroxine 137 mcg Capsule 137 mcg PO DAILY RF: 0 trazodone 50 mg tablet 25 - 50 mg PO QHS PRN (Reason: Sleep) RF: 0 omeprazole 40 mg capsule,delayed release(DR/EC) 40 mg PO DAILY RF: 0 Discontinued hydrochlorothiazide 50 mg Tablet 50 mg PO DAILY RF: 0 Referrals / Follow Up: Care Physician,No Primary [Primary Care Provider] - Within 2 Weeks Disposition Disposition (needs filled in before D/C Order can be placed): Home, self care Visit Charges OBSV E&M: [id number] Observation care discharge
--- NOTE | 2020-12-04 13:05 | PCM.DC ---
Discharge Instructions Diet Discharge Diet: 2000 mg Sodium Diet Activity Discharge Activity: Return to Normal Activity Follow Up Care Test Results: Test results from this visit will be discussed in further detail at your follow-up appointment, if applicable. Discharge Plan Admission Admit Date/Time: 12/02/20 20:52 Primary Reason for Your Visit: Acute hyponatremia Attending Provider: Lyn Gonzalez Primary Care Provider: Azeb Physician,Ariadna Primary Instructions Additional Instructions / Restrictions: Take note of changes to your medication. You need to have blood work to check on your kidney and liver function within 1 to 2 weeks. Continue to abstain from alcohol. You have been given resources for [facility]. Continue to measure your blood pressure daily. Let your physician know if your blood pressure is elevated more than 160/90. Discharge Orders/Prescriptions Prescriptions: Continued lisinopril 40 mg Tablet 40 mg PO DAILY RF: 0 levothyroxine 137 mcg Capsule 137 mcg PO DAILY RF: 0 trazodone 50 mg tablet 25 - 50 mg PO QHS PRN (Reason: Sleep) RF: 0 omeprazole 40 mg capsule,delayed release(DR/EC) 40 mg PO DAILY RF: 0 Discontinued hydrochlorothiazide 50 mg Tablet 50 mg PO DAILY RF: 0 Referrals / Follow Up: Care Physician,No Primary [Primary Care Provider] - Within 2 Weeks Disposition Disposition (needs filled in before D/C Order can be placed): Home, self care
== END 2020-12-04 13:05 | disposition home or self-care (01) ==
LOC: ED 16:55 → PCU 21:56
PROVIDERS: Nurse Practitioner Family; Admitting Provider Family Medicine; Emergency Provider Emergency Medicine; Visit Provider Internal Medicine
DX: R42 Dizziness and giddiness (principal); F41.9 Anxiety disorder, unspecified; F10.10 Alcohol abuse, uncomplicated; R25.1 Tremor, unspecified; E87.1 Hypo-osmolality and hyponatremia; E03.9 Hypothyroidism, unspecified; I10 Essential (primary) hypertension; Z85.3 Personal history of malignant neoplasm of breast; Z79.899 Other long term (current) drug therapy
CPT/HCPCS: 36415; 70450; 76705; 80048; 80053; 82247; 82248; 82436; 83735; 84100; 84300; 84443; 85025; 93005; 96361; 96372; 96374; 96375; 96376; 99218; 99285; J7030; A4216; G0378; J2405

== ENCOUNTER 2022-09-07 13:34 | Emergency (ER) | payer OTHER, SELFPAY ==
[2022-09-07 13:35] VITALS: PULSE 96; RESP 16; TEMP 35.9; O2SAT 97; BMI 44.8
--- NOTE | 2022-09-07 13:38 | RAD_ITS ---
STUDY: X-RAY - RIGHT ANKLE REASON FOR EXAM: Female, 51 years old. Pain following injury. TECHNIQUE: 3 view(s) of the ankle. COMPARISON: None. FINDINGS: Normal visualized distal tibia and fibula. Nondisplaced transverse fracture of the lateral malleolus. Normal tibiotalar articulation and ankle mortise. Normal visualized talus and calcaneus. The visualized subtalar, talonavicular, calcaneocuboid and tarsal articulations are normal. Soft tissue swelling. RAD/Ankle min 3 Views IMPRESSION: Nondisplaced transverse fracture of the lateral malleolus. Soft tissue swelling. Electronically Signed: Ian Felton MD at 14:13 EST ,
[2022-09-07 13:40] VITALS: BP 232/127
--- NOTE | 2022-09-07 14:16 | EDS_ITS ---
HPI History of Present Illness Chief Complaint: Lower Extremity Injury Detail of Chief Complaint: Right ankle injury Informant: patient Narrative Narrative: Patient presents the emergency department with a right ankle injury that occurred while at home. Patient states that she missed a step and rolled her ankle injuring it. Patient unable to bear weight afterwards. Presents via EMS. Patient denies any other injuries. Patient not on blood thinners. PFSH PFSH Medical History History of breast cancer HTN (hypertension) Hypothyroid Home Medications levothyroxine 137 mcg capsule 137 mcg PO DAILY thyroid 12/02/20 [History Last Taken 12/01/20] lisinopril 40 mg tablet 40 mg PO DAILY blood pressure 12/02/20 [History Last Taken 12/01/20] omeprazole 40 mg capsule,delayed release 40 mg PO DAILY GERD 12/02/20 [History Last Taken 11/30/20] trazodone 50 mg tablet 25 - 50 mg PO QHS PRN Sleep 12/02/20 [History Last Taken 1 Week Ago ~11/25/20] hydrocodone-acetaminophen 5-325mg 5mg-325mg 1 tab PO Q4H PRN PRN Pain 2 days #10 TABLETS 09/07/22 [Rx Last Taken Unknown] Allergy/AdvReac Type Severity Reaction Status Date / Time azithromycin Allergy Severe Hives Verified 09/07/22 13:37 dextrose 5 % in water Allergy Hives Verified 09/07/22 13:37 [From Zyvox] linezolid [From Zyvox] Allergy Hives Verified 09/07/22 13:37 Penicillins Allergy Hives Verified 09/07/22 13:37 Sulfa (Sulfonamide Allergy Hives Verified 09/07/22 13:37 Antibiotics) vancomycin Allergy Hives Verified 09/07/22 13:37 Surgical History H/O mastectomy H/O: hysterectomy Social History Smoking Status: Former smoker ROS ROS ED Review of Systems ROS Unobtainable: other Constitutional Constitutional ED: Reports lethargy; Denies chills, fever(s), sweats or weight loss Eyes Eyes: Denies blurry vision, change in vision or diplopia ENT ENT ED: Denies rhinorrhea or sore throat Cardiovascular Cardiovascular: Denies chest pain, orthopnea or racing heartbeat Respiratory/Chest Respiratory/Chest: Denies cough, dyspnea, dyspnea on exertion, orthopnea or sputum Gastrointestinal Gastrointestinal: Denies abdominal pain, diarrhea, nausea or vomiting Genitourinary Genitourinary ED: Denies dysuria, hematuria or urinary frequency Musculoskeletal Musculoskeletal: Reports other Details: Right ankle injury/pain ; Denies arthralgias, back pain, myalgias or neck pain Integumentary Denies abscess, Abrasions or rash Neurologic Neurologic: Denies headache(s) or weakness Psychiatric Psychiatric: Denies anxiety, depression or suicidal thoughts Endocrine Endocrinology: Denies polydipsia, polyphagia or polyuria Hematologic/Lymphatic Hematologic/Lymphatic: Denies easy bleeding, easy bruising or lymphadenopathy Allergic/Immunologic Allergic/Immunologic ED: Denies mouth swelling, tongue swelling or urticaria EXAM Physical Exam Const Vital Signs: 09/07/22 13:35 09/07/22 13:40 Temperature 96.7 F L Temperature Source Temporal Pulse Rate 96 Respiratory Rate 16 Blood Pressure 232/127 H Blood Pressure Mean 162 Pulse Ox 97 Oxygen Delivery Method Room Air Positive well nourished and well developed General Appearance ED: well developed and NAD HEENT Reports TM's clear and moist mucous membranes normocephalic and atraumatic; Negative for trauma or tenderness Tympanic Membrane ED: Yes TM's clear Eyes PERRL and EOMs intact bilaterally General Eye ED: Negative for pale conjunctiva or scleral icterus Neck no lymphadenopathy, supple and no JVD General: Negative for tenderness Chest Wall inspection of chest normal and palpation of chest normal Chest: Negative for tenderness Resp normal respiratory effort and clear to auscultation bilaterally Effort and Inspection: Negative for respiratory distress or pain with movement Auscultation: Negative for rhonchi, wheezes or diminished lung sounds Cardio regular rate, regular rhythm, S1 normal heart sound, S2 normal heart sound and no murmurs Peripheral Pulses: pulses 2+ throughout GI normal to inspection, nondistended, normoactive bowel sounds, soft to palpation, non-tender, non-distended and no masses Back/Spine no CVA tenderness and no thoracic nor lumbar tenderness Extremity Extremity Narrative: Evaluation of the right ankle reveal soft tissue swelling over the lateral mal leolus with tenderness to palpation. She has no pain at the proximal fibular head. She has no pain at the base of the fifth metatarsal. She is neurovascularly intact distally. No open skin noted. 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 She asked that I discussed with him whether a splint or a boot would be more appropriate as she would prefer to use a boot and be nonweightbearing potentially. I did discuss case with orthopedic surgeon on-call Dr. Christopher Sagastume who was comfortable with sending patient home with a boot and weightbearing as tolerated. Patient will be given a prescription for [place] for pain and advised to follow-up with orthopedics. Radiography Diagnostic Testing: Clinical Impression(s) from Imaging Studies Ankle X-Ray 09/07/22 13:38 IMPRESSION: Nondisplaced transverse fracture of the lateral malleolus. Soft tissue swelling. Electronically Signed: Ian Felton MD at 14:13 EST Reading Location ID and State: [address] [place] [address] , Service support , Three-view x-rays of the right ankle obtained on my interpretation shows a nondisplaced distal fibula fracture. Radiology was in agreement. Discharge Plan Triage Chief Complaint: Lower Extremity Injury ED Provider: Alona Diaz Dx/Rx/DC Orders Clinical Impression: Ankle fracture, right Instructions: ED Ankle Dislocation (Adult) Prescriptions: New hydrocodone-acetaminophen [hydrocodone-acetaminophen] 5-325 mg tablet 1 tab PO Q4H PRN PRN (Reason: Pain) 2 Days Qty: 10 0RF No Action lisinopril 40 mg Tablet 40 mg PO DAILY levothyroxine 137 mcg Capsule 137 mcg PO DAILY trazodone 50 mg tablet 25 - 50 mg PO QHS PRN (Reason: Sleep) omeprazole 40 mg capsule,delayed release(/EC) 40 mg PO DAILY Primary Care Provider: Care Physician,No Primary Referrals: Care Physician,No Primary [Primary Care Provider] - Disposition Disposition: Home, Self Care
[2022-09-07] MEDS: HYDROcodone Bitartrate/Apap 5/325 Tablet PO (14:45)
[2022-09-07 15:01] VITALS: BP 189/113; PULSE 81; RESP 16; O2SAT 98
== END 2022-09-07 15:05 | disposition home or self-care (01) ==
PROVIDERS: Emergency Provider Emergency Medicine; Visit Provider Emergency Medicine
DX: S82.64XA Nondisplaced fracture of lateral malleolus of right fibula, initial encounter for closed fracture (principal); X50.1XXA Overexertion from prolonged static or awkward postures, initial encounter; Y92.009 Unspecified place in unspecified non-institutional (private) residence as the place of occurrence of the external cause; I10 Essential (primary) hypertension; E03.9 Hypothyroidism, unspecified; Z79.899 Other long term (current) drug therapy; Z87.891 Personal history of nicotine dependence
CPT/HCPCS: 73610; 99285

== ENCOUNTER → 2023-01-11 | Outpatient (CLI) | payer OTHER, SELFPAY ==
[2023-01-11 08:39] LABS: Hematocrit 41.8 % (37-47); Hemoglobin 14.5 g/dL (12.0-15.0); Mean Corp Hgb Conc 34.7 g/dL (32-36); Mean Corpuscular Hgb 31.4 pg (27.0-32.0); Mean Corpuscular Volume 90.5 fL (81-99); Mean Platelet Vol. 9.1 fl (6.2-12.0); POSITIVE MORPHOLOGY YES; Platelet Count 403 K/mm3 (150-450); RBC Distribution Width CV 20.1 % (11.6-14.6); RBC Distribution Width SD 63.1 fl (35.1-43.9); Red Blood Count 4.62 M/mm3 (4.2-5.4); White Blood Count 7.6 K/mm3 (4.4-11.0)
[2023-01-11 08:47] LABS: Scan Indicated on CBC? Y/N YES- FLAGS NOTED
[2023-01-11 09:07] LABS: Anion Gap 12 (5-15); BUN 6 mg/dL (7-18); BUN/Creat Ratio 8.5 RATIO (10-20); Calcium,Total 8.9 mg/dL (8.5-10.1); Chloride 83 mmol/L (98-107); EST Glomerular Filtration Rate 92 mL/min (>60); Est Glom Filt Rate - Afr Amer 112 mL/min (>60); Glucose 98 mg/dL (74-106); Potassium 2.9 mmol/L (3.5-5.1); Sodium Level 125 mmol/L (136-145)
== END | disposition home or self-care (01) ==
LOC: PSN 07:32
PROVIDERS: Referring Provider Otolaryngology; Visit Provider Otolaryngology
DX: Z01.812 Encounter for preprocedural laboratory examination (principal); Z01.810 Encounter for preprocedural cardiovascular examination
CPT/HCPCS: 36415; 80048; 85027; 93005

== ENCOUNTER → 2023-01-18 | Outpatient (CLI) | payer OTHER, SELFPAY ==
[2023-01-18 08:27] LABS: Anion Gap 9 (5-15); BUN 7 mg/dL (7-18); Chloride 97 mmol/L (98-107); Creatinine, Serum 0.88 mg/dL (0.55-1.02); EST Glomerular Filtration Rate 72 mL/min (>60); Est Glom Filt Rate - Afr Amer 87 mL/min (>60); Glucose 92 mg/dL (74-106); Potassium 3.7 mmol/L (3.5-5.1); Sodium Level 135 mmol/L (136-145)
== END | disposition home or self-care (01) ==
LOC: LAB 07:35
PROVIDERS: PCP Internal Medicine; Referring Provider Otolaryngology; Visit Provider Otolaryngology
DX: Z01.818 Encounter for other preprocedural examination (principal)
CPT/HCPCS: 36415; 80048

== ENCOUNTER 2024-02-19 23:44 | Inpatient (IN) | payer OTHER, SELFPAY ==
[2024-02-19 23:45] VITALS: BP 156/96; PULSE 95; RESP 16; TEMP 35.9; O2SAT 96; BMI 36.2
[2024-02-19 23:48] VITALS: BP 156/96; PULSE 93; RESP 19; TEMP 35.9; O2SAT 96
[2024-02-20] VITALS (26 sets, daily range): BP systolic 100–164; BP diastolic 69–103; PULSE 82–96; RESP 13–22; TEMP 36.6–36.7; O2SAT 92–100; BMI 35.0; BMI 35.3
[2024-02-20] MEDS: 0.9% Normal Saline (1000mL) 1,000 ML 999 ML IV (00:25)
[2024-02-20] MEDS: Ondansetron 4 MG/2 ML Vial IV ×3 (00:25→16:19)
[2024-02-20] MEDS: LORazepam 2 MG/ML Syringe 1 MG IV (00:25)
--- NOTE | 2024-02-20 00:26 | EDS_ITS ---
HPI History of Present Illness Chief Complaint: ETOH Intox Informant: patient and EMS Narrative Narrative: Patient is a 53-year-old female with history of alcohol abuse. She was admitted roughly 1 month ago secondary to hyponatremia. She states has been trying to reduce her alcohol intake and her last drink was around 3 PM this afternoon. She reports however in the last 1 to 2 days she has been having recurrent bouts of nausea and vomiting. She states has not been doing well and keeping food or fluid down. She states today she has been feeling dizzy and weak. Therefore with concern for dehydration and the worsening symptoms she presents for evaluation [facility] Medical History History of breast cancer HTN (hypertension) Hypothyroid Home Medications ?Medication ?Instructions ?Recorded ?Last Taken ?Type levothyroxine 137 mcg capsule 137 mcg PO DAILY thyroid 12/02/20 12/01/20 History lisinopril 40 mg tablet 40 mg PO DAILY blood pressure 12/02/20 12/01/20 History omeprazole 40 mg capsule,delayed 40 mg PO DAILY GERD 12/02/20 11/30/20 History release trazodone 50 mg tablet 25 - 50 mg PO QHS PRN Sleep 12/02/20 1 Week Ago History ~11/25/20 hydrocodone-acetaminophen 5-325mg 1 tab PO Q4H PRN PRN Pain 2 days 09/07/22 Unknown Rx 5mg-325mg #10 TABLETS levothyroxine 150 mcg tablet 150 mcg PO DAILY 02/20/24 Unknown History Allergy/AdvReac Type Severity Reaction Status Date / Time Penicillins Allergy Hives Verified 02/19/24 23:52 Sulfa (Sulfonamide Allergy Hives Verified 02/19/24 23:52 Antibiotics) vancomycin Allergy Hives Verified 02/19/24 23:52 Surgical History H/O mastectomy H/O: hysterectomy Social History Smoking Status: Former smoker ROS ROS ED Constitutional Constitutional ED: Denies chills or fever(s) Eyes Eyes: Denies blurry vision or change in vision ENT ENT ED: Denies sore throat Cardiovascular Cardiovascular: Denies chest pain, palpitations or racing heartbeat Respiratory/Chest Respiratory/Chest: Denies cough or dyspnea Gastrointestinal Gastrointestinal: Reports nausea and vomiting; Denies abdominal pain or diarrhea Genitourinary Genitourinary ED: Denies dysuria Musculoskeletal Musculoskeletal: Denies myalgias Integumentary Denies rash Neurologic Neurologic: Reports weakness and other Details: Positive dizziness ; Denies headache(s) Hematologic/Lymphatic Hematologic/Lymphatic: Denies easy bleeding or easy bruising EXAM Physical Exam Const Vital Signs: 02/19/24 23:45 02/19/24 23:48 02/20/24 01:10 Temperature 96.6 F L 96.6 F L Temperature Source Temporal Temporal Pulse Rate 95 93 88 Respiratory Rate 16 19 H 18 Blood Pressure 156/96 H 156/96 H 100/87 H Blood Pressure Mean 116 116 91 Blood Pressure Source Monitor Pulse Ox 96 96 Oxygen Delivery Method Room Air Room Air 02/20/24 02:52 Temperature 97.9 F Temperature Source Pulse Rate 96 Respiratory Rate 15 Blood Pressure 147/81 H Blood Pressure Mean 103 Blood Pressure Source Pulse Ox 97 Oxygen Delivery Method Positive well nourished, well developed and obese General Appearance ED: well developed; Negative for pallor Nutritional Appearance: obese HEENT Reports dry mucous membranes HEENT Narrative: Mucous membranes are dry and tacky No tongue or lip swelling no oral lesions no airway edema or compromise No secondary findings in the posterior pharynx to suggest infection Mouth ED: Yes dry mucous membranes Mouth: dry mucous membranes Eyes PERRL and EOMs intact bilaterally General Eye ED: Negative for scleral icterus Neck supple Neck Narrative: No nuchal rigidity or meningeal signs noted Resp normal respiratory effort and clear to auscultation bilaterally Cardio regular rate and regular rhythm Rate: other Other Details: Regular rate and rhythm without murmurs rubs or gallops Radial and carotid pulses are equal and symmetric GI normal to inspection, nondistended, normoactive bowel sounds, non-tender, non-di stended and no masses GI Narrative: No voluntary guarding or rigidity or pulsatile mass No distention or fluid wave noted No ascites present Auscultation: normoactive bowel sounds Palpation: soft Extremity normal to inspection Neuro oriented x3, CN's II-XII intact bilaterally and no sensory deficits noted Neuro Narrative: GCS of 15 Cranial nerves II through XII are grossly intact without focal neurologic defic it No pronator drift no dysmetria no truncal ataxia NIH stroke scale score of 0 Sensorium / Orientation: alert Motor Exam: strength 5/5 throughout Psych Psych Narrative: Patient has a flat affect Skin no rashes or lesions noted Skin Narrative: Skin turgor is increased General Skin Exam: Negative for jaundice or pallor MDM MDM MDM Narrative Medical decision making narrative: Patient arrived to the ER hypertensive otherwise with stable vitals. She re ported roughly 1 to 2 days of nausea and vomiting and then development of dizziness and generalized weakness. Differential diagnosis is for acute kidney injury versus electrolyte abnormalities such as hypokalemia versus hyponatremia versus hypochloremia. There is also concern for alcohol withdrawal as patient reports that she has been trying to cut back on her alcohol use. Secondary to this basic labs were obtained and patient was given IV hydration with normal saline secondary to her physical exam showing changes consistent with acute dehydration. The patient's labs revealed a normal white count without left shift going against acute infection. Kidney function is normal going against acute kidney injury. However her sodium has dropped significantly down to 110 and her chloride is also decreased at 70 and this would correlate with her symptoms of weakness and dizziness. I do not feel there is need for a CT scan as her neurologic exam is normal and there is no truncal ataxia. At this time based on the hyponatremia and hypokalemia patient will need admitted to the hospital. As her neurologic exam is normal and this is most likely related to her history of recurrent alcohol use I do not feel there is a need for hypertonic saline. The case was discussed with the hospitalist and he agrees with admission at this time but holding off on hypertonic saline as her mental status and neurologic exam is normal. History & Record Review Discussion w/independent historian: EMS personnel and Patient Lab Data Attestation: I reviewed the patient's lab results. Labs: Laboratory Results - last 24 hr 02/20/24 00:07 WBC 7.2 RBC 4.11 L Hgb 13.4 Hct 35.9 L MCV 87.3 MCH 32.6 H MCHC 37.3 H RDW Std Deviation 50.2 H RDW Coeff of [place] 15.7 H Plt Count 246 MPV 8.8 Immature Gran % (Auto) 1.900 H Neut % (Auto) 80.3 H Lymph % (Auto) 8.6 L [place] % (Auto) 8.9 Eos % (Auto) 0.0 Baso % (Auto) 0.3 Absolute Neuts (auto) 5.8 Absolute Lymphs (auto) 0.62 L Nucleated RBC % 0 Sodium 110 L* Potassium 3.1 L Chloride 70 L* Carbon Dioxide 24.0 Anion Gap 16 H BUN 7 Creatinine 0.67 Estim Creat Clear Calc 98.88 Est GFR (MDRD) Af Amer 118 Est GFR (MDRD) Non-Af 97 BUN/Creatinine Ratio 10.5 Glucose 116 H Calcium 8.4 L Magnesium 1.6 Total Bilirubin 2.60 H Direct Bilirubin 0.86 H AST 123 H ALT 75 H Alkaline Phosphatase 79 Total Protein 6.7 Albumin 3.3 Globulin 3.4 Lipase 37 TSH 8.07 H Ethyl Alcohol 6.0 Management Discussion w/another healthcare provider: Hospitalist Discharge Plan Dx/Rx/DC Orders Clinical Impression: Acute hyponatremia, Alcohol abuse, Hypochloremia, Dehydration, Nausea & vomiting Disposition Disposition: Acute Care [facility]
[2024-02-20 00:35] LABS: Absolute Lymphocyte Count 0.62 X10^3/uL (0.83-4.51); Absolute Neutrophil Count 5.8 X10^3/uL (2.0-7.7); Basophil# 0.02 X10^3/uL; Basophil% 0.3 % (0-1); Hematocrit 35.9 % (37-47); Hemoglobin 13.4 g/dL (12.0-15.0); Lymphocyte # 0.62 X10^3/ul (0.83-4.51); Lymphocyte % 8.6 % (19-41); Mean Corp Hgb Conc 37.3 g/dL (32-36); Mean Corpuscular Hgb 32.6 pg (27.0-32.0); Mean Corpuscular Volume 87.3 fL (81-99); Mean Platelet Vol. 8.8 fl (6.2-12.0); Monocyte# 0.64 X10^3/uL; Monocyte% 8.9 % (0-10); NRBC Flagged by Analyzer 0 % (0-5); Neutrophil # 5.79 X10^3/uL (2.7-7.7); Neutrophil % 80.3 % (47-70); Platelet Count 246 K/mm3 (150-450); RBC Distribution Width CV 15.7 % (11.6-14.6); RBC Distribution Width SD 50.2 fl (35.1-43.9); Red Blood Count 4.11 M/mm3 (4.2-5.4); White Blood Count 7.2 K/mm3 (4.4-11.0)
[2024-02-20 00:39] LABS: Lipase 37 U/L (13-75); Magnesium 1.6 mg/dL (1.6-2.6); Thyroid Stim Hormone (TSH) 8.07 uIU/mL (0.358-3.74)
[2024-02-20 00:42] LABS: AST(SGOT) 123 U/L (15-37); Alanine Aminotransfer ALT/SGPT 75 U/L (13-56); Albumin, Serum 3.3 g/dL (3.2-5.0); Alkaline Phosphatase 79 U/L (45-117); Anion Gap 16 (5-15); BUN 7 mg/dL (7-18); BUN/Creat Ratio 10.5 RATIO (10-20); Bilirubin, Direct 0.86 mg/dL (0.00-0.30); Calcium,Total 8.4 mg/dL (8.5-10.1); Chloride 70 mmol/L (98-107); Creatinine, Serum 0.67 mg/dL (0.55-1.02); EST Glomerular Filtration Rate 97 mL/min (>60); Est Glom Filt Rate - Afr Amer 118 mL/min (>60); Estimated Creatinine Clearance 98.88 ml/min; Globulin 3.4 g/dL (2.2-4.2); Glucose 116 mg/dL (74-106); Potassium 3.1 mmol/L (3.5-5.1); Protein, Total 6.7 g/dL (6.4-8.2); Sodium Level 110 mmol/L (136-145)
--- NOTE | 2024-02-20 02:27 | PCM.HP.STD ---
HPI - General General Date of Admission: 02/20/24 Date of Service: 02/20/24 Chief Complaint: Nausea/vomiting and poor p.o. intake HPI Narrative ORA ADAMS, is a 53 F who presented to [facility] ED on 02/20/2024 with 1 to 2-day history of nausea/vomiting and poor p.o. intake. On arrival to the ED, patient was found to have a sodium level of 110. Per ED physician, patient was mentating appropriately and denied any symptoms of mental fogginess or confusion. Chloride level notably was very low at 70. Given the very low sodium, hospitalist was contacted for admission. I saw patient at the bedside in the ED. She was sitting up comfortably in bed, conversing normally, in no acute distress. She appeared mildly fatigued and had dry mucous membranes but otherwise appeared comfortable. She denied any acute pain or discomfort. Denied any other acute concerns at this time. She notably did receive doses of IV Ativan 1 mg, IV Zofran and 1 L of normal saline before I saw her. When she arrived to the ED, she was hypertensive to the 150s over 90s and borderline tachycardic with heart rate in the 90s, otherwise hemodynamically stable. Labs notable for sodium 110, potassium 3.1, chloride 70, bicarb 24, BUN 7, creatinine 0.67, magnesium 1.6, total bilirubin 2.6, direct bili 0.8, AST 123, ALT 75, alk phos 79, TSH 8.07. No imaging was done. Patient was hospitalized here about 3 years ago for hyponatremia and presented at that time with similar symptoms. However, her sodium level at worst and was only 125. Hyponatremia then with suspected multifactorial from home hydrochlorothiazide, poor p.o. intake, GI losses and possibly some degree of beer potomania. Patient states that she is still on hydrochlorothiazide at this time, though she did self discontinue this a few days ago. Her only other home medications right now are Synthroid and lisinopril. She has not been able to keep these 2 medications down the past few days but otherwise reports compliance. Patient does have history of alcohol abuse. States that she typically drinks 2 glasses of vodka every evening. She notably reported the same amount of alcohol intake during the 2020 admission. States that she has been trying to cut back on her alcohol use over the past few weeks. Since she has developed significant nausea with vomiting in the past few days, she has not had any alcohol intake. She has never been hospitalized for alcohol withdrawal but states she will sometimes have symptoms of withdrawal such as shakiness and heart racing. Denies history of withdrawal seizures. Alcohol level was 6 in ED today. [facility] Medical History History of breast cancer HTN (hypertension) Hypothyroid Home Medications ?Medication ?Instructions ?Recorded ?Last Taken ?Type omeprazole 40 mg capsule,delayed 40 mg PO DAILY GERD 12/02/20 11/30/20 History release trazodone 50 mg tablet 25 - 50 mg PO QHS PRN Sleep 12/02/20 1 Week Ago History ~11/25/20 levothyroxine 150 mcg tablet 150 mcg PO DAILY 02/20/24 Unknown History lisinopril 20 1 tab PO DAILY BLOOD PRESSURE 02/20/24 Unknown History mg-hydrochlorothiazide 25 mg tablet Allergy/AdvReac Type Severity Reaction Status Date / Time Penicillins Allergy Hives Verified 02/19/24 23:52 Sulfa (Sulfonamide Allergy Hives Verified 02/19/24 23:52 Antibiotics) vancomycin Allergy Hives Verified 02/19/24 23:52 Surgical History H/O mastectomy H/O: hysterectomy Social History Smoking Status: Former smoker ROS Constitutional Constitutional: Reports fatigue; Denies chills or fever(s) Eyes Eyes: Denies blurry vision or change in vision Cardiovascular Cardiovascular: Denies chest pain, edema, lightheadedness, palpitations, rapid heart rate or syncope Respiratory/Chest Respiratory/Chest: Denies cough or shortness of breath at rest Gastrointestinal Gastrointestinal: Reports nausea and vomiting; Denies abdominal pain, constipation or diarrhea Musculoskeletal Musculoskeletal: Denies arthralgias or myalgias Neurologic Neurologic: Denies abnormal gait, abnormal speech, confusion, disequilibrium, dizziness, focal weakness, headache(s), seizure-like activity, seizures or tremor(s) Vital Signs Vital Signs Vital Signs: 02/19/24 23:45 02/19/24 23:48 02/20/24 01:10 Temperature 96.6 F L 96.6 F L Temperature Source Temporal Temporal Pulse Rate 95 93 88 Respiratory Rate 16 19 H 18 Blood Pressure 156/96 H 156/96 H 100/87 H Blood Pressure Mean 116 116 91 Blood Pressure Source Monitor Pulse Ox 96 96 Oxygen Delivery Method Room Air Room Air Weight Weight: 89.9 kg Body Mass Index (BMI) 36.2 Physical Exam Const alert, oriented x3 and no apparent distress Constitutional Narrative: Pleasant middle-aged female, obese, fatigued appearing, otherwise sitting up comfortably in bed, conversing normally, in no acute distress. General Appearance: cooperative and comfortable HEENT normocephalic, head/scalp atraumatic, hearing grossly normal bilaterally and nasal mucous membranes and turbinates normal HEENT Narrative: Dry mucous membranes. Eyes PERRL, EOMs intact bilaterally and conjunctivae normal Neck full ROM Chest inspection of chest normal Resp normal respiratory effort, normal air movement, no use of accessory muscles and clear to auscultation bilaterally Cardio regular rate, regular rhythm, no murmurs and peripheral pulses 2+ throughout GI normal to inspection, nondistended, normoactive bowel sounds, soft to palpation, non-tender and non-distended Back/Spine normal ROM Extremity normal to inspection, full ROM and no pedal edema Skin no rashes or lesions noted Neuro moves all extremities and no focal motor deficits Speech: speech normal Psych mental status grossly normal Mood & Affect: Negative for anxious Results Lab / Micro Data 02/20/24 00:07 02/20/24 00:07 Labs: Laboratory Results - last 24 hr 02/20/24 00:07: WBC 7.2, RBC 4.11 L, Hgb 13.4, Hct 35.9 L, MCV 87.3, MCH 32.6 H, MCHC 37.3 H, RDW Std Deviation 50.2 H, RDW Coeff of [place] 15.7 H, Plt Count 246, MPV 8.8, Immature Gran % (Auto) 1.900 H, Neut % (Auto) 80.3 H, Lymph % (Auto) 8.6 L, [place] % (Auto) 8.9, Eos % (Auto) 0.0, Baso % (Auto) 0.3, Absolute Neuts (auto) 5.8, Absolute Lymphs (auto) 0.62 L, Nucleated RBC % 0, Sodium 110 L*, Potassium 3.1 L, Chloride 70 L*, Carbon Dioxide 24.0, Anion Gap 16 H, BUN 7, Creatinine 0.67, Estim Creat Clear Calc 98.88, Est GFR (MDRD) Af Amer 118, Est GFR (MDRD) Non-Af 97, BUN/Creatinine Ratio 10.5, Glucose 116 H, Calcium 8.4 L, Magnesium 1.6, Total Bilirubin 2.60 H, Direct Bilirubin 0.86 H, AST 123 H, ALT 75 H, Alkaline Phosphatase 79, Total Protein 6.7, Albumin 3.3, Globulin 3.4, Lipase 37, TSH 8.07 H, Ethyl Alcohol 6.0 Assessment & Plan Assessment/Plan (1) Acute hyponatremia: (2) Hypochloremia: (3) Dehydration: (4) Alcohol abuse: (5) Elevated liver enzymes: PLAN: Plan Patient is a 53-year-old female who presented [facility] ED on 02/20/2024 with nausea/vomiting and poor p.o. intake. 1. Severe hyponatremia ? Admit under inpatient status to ICU. Nephrology consulted. Sodium 110, chloride 70 on admit. Serum osmolality very low at 237. Urine sodium and urine osmolality pending. Patient importantly with no mental status changes. Seems most likely multifactorial from home hydrochlorothiazide, poor solute intake, GI losses and possibly some degree of beer potomania. Was given 1 L normal saline in the ED. Will monitor BMP every 4 hours. Will hold on further IV fluids for now. 1500 mL fluid restriction. 2. Hypokalemia, hypomagnesemia ? Potassium 3.1, magnesium 1.6 on admit. Phosphorus pending. Presumed secondary to GI losses and poor solute intake. Replete as needed. 3. Alcohol abuse with concern for withdrawal ? Case management consulted. Alcohol level 6 in ED. Mildly hypertensive and borderline tachycardic on arrival; did receive doses of IV Ativan 1 mg and IV Zofran in ED with some improvement in symptoms. Will start CIWA protocol and as needed medications per alcohol withdrawal order set, but hold on a scheduled taper for now; however, low threshold to start either phenobarbital or benzodiazepine taper if patient has worsening symptoms. 4. Mildly elevated LFTs ? Total bili 2.6, direct bili 0.8, AST 123, ALT 75 on admit. Previous LFTs in 2020 were similar. Had liver ultrasound done then that showed hepatomegaly and diffuse fatty liver infiltration. Patient with no abdominal pain or discomfort on admit. Suspect elevated LFTs are again due to fatty liver disease and alcohol use as noted above. Follow-up a.m. LFTs. No need for repeat imaging at this time. Chronic medical conditions: ? Obesity: BMI 36 on admit. Encouraged lifestyle modifications. Complicates hospital course, care and prognosis. ? Hypothyroidism: TSH 8.0 on admit. T4 pending. Continue home Synthroid. Recommend outpatient PCP follow-up for Synthroid dose titration as needed. ? Hypertension: On home lisinopril?hydrochlorothiazide 20-25 mg daily. Will hold both medications and recommend discontinuing hydrochlorothiazide altogether given severe hyponatremia. ? GERD: Continue home PPI. ? History of breast cancer s/p bilateral mastectomy DVT prophylaxis: Lovenox CODE STATUS: Full code, verified Expected disposition: Home, TBD Total clinical time spent by myself addressing the patient's medical issues, reviewing all the data, and collaborating with patient's care team: 55 minutes. Charges/Coding Visit Charges Inpatient E&M: 72008 Init Hosp L2
[2024-02-20 03:05] LABS: Osmolality, Serum 237 mOsm/KG (275-295)
[2024-02-20] MEDS: 0.9% Saline Lock 10 ML Syringe IV ×3 (04:10→20:31)
[2024-02-20 04:20] LABS: Hemoglobin 12.4 g/dL (12.0-15.0); Mean Corp Hgb Conc 36.5 g/dL (32-36); Mean Corpuscular Hgb 32.3 pg (27.0-32.0); Mean Corpuscular Volume 88.5 fL (81-99); Mean Platelet Vol. 8.8 fl (6.2-12.0); Platelet Count 223 K/mm3 (150-450); RBC Distribution Width CV 15.8 % (11.6-14.6); Red Blood Count 3.84 M/mm3 (4.2-5.4)
[2024-02-20 04:39] LABS: Anion Gap 13 (5-15); BUN 8 mg/dL (7-18); BUN/Creat Ratio 11.5 RATIO (10-20); Calcium,Total 7.9 mg/dL (8.5-10.1); Chloride 74 mmol/L (98-107); EST Glomerular Filtration Rate 93 mL/min (>60); Est Glom Filt Rate - Afr Amer 112 mL/min (>60); Estimated Creatinine Clearance 92.98 ml/min; Glucose 110 mg/dL (74-106); Potassium 3.3 mmol/L (3.5-5.1); Sodium Level 113 mmol/L (136-145)
[2024-02-20] MEDS: Magnesium Sulfate 4gm/100mL 4 GM/100 ML IV.SOLN. IV (04:45)
[2024-02-20 05:56] LABS: Phosphorus 1.4 mg/dL (2.5-4.9)
[2024-02-20 06:26] LABS: Prothrombin Time (Protime)PT. 13.4 SECONDS (11.7-14.9)
[2024-02-20 06:54] LABS: Urine Sodium 16 mmol/L (Not Establ.)
[2024-02-20 06:59] LABS: Osmolality, Urine 600 mOsm/KG
[2024-02-20] MEDS: Pantoprazole Sodium 40 MG Tablet PO (07:28)
[2024-02-20] MEDS: Folic Acid 1 MG Tablet PO (07:28)
[2024-02-20] MEDS: Enoxaparin 40 MG/0.4 ML Syringe SC (07:28)
[2024-02-20] MEDS: Thiamine Hydrochloride 100 MG Tablet PO (07:28)
[2024-02-20 08:48] LABS: Anion Gap 12 (5-15); BUN 8 mg/dL (7-18); BUN/Creat Ratio 13.3 RATIO (10-20); Chloride 75 mmol/L (98-107); EST Glomerular Filtration Rate 110 mL/min (>60); Est Glom Filt Rate - Afr Amer 133 mL/min (>60); Estimated Creatinine Clearance 108.48 ml/min; Glucose 110 mg/dL (74-106); Potassium 3.4 mmol/L (3.5-5.1); Sodium Level 111 mmol/L (136-145)
--- NOTE | 2024-02-20 08:52 | PCM.PN.HOSP ---
Reason for Visit Reason for Visit: Diagnoses Dehydration (02/20/24) Hypo-osmolality and hyponatremia (02/20/24) Other disorders of electrolyte and fluid balance, not elsewhere classified (02/20/24) Alcohol abuse, uncomplicated (02/20/24) Abnormal levels of other serum enzymes (02/20/24) Subjective Subjective Patient is a 53-year-old lady with a history of chronic alcohol dependence admitted with nausea and vomiting. Patient was found to have severe hyponatremia with sodium level of 110. Objective Data Objective Data Vital Signs: Vital Signs Temp Pulse Resp BP Pulse Ox O2 Del Method 98.0 F 82 17 139/88 H 93 Room Air 02/20/24 08:00 02/20/24 08:00 02/20/24 08:00 02/20/24 08:00 02/20/24 08:00 02/20/24 08:00 Oxygen Delivery Method Room Air Weight: 87 kg Body Mass Index (BMI) 35.3 Intake & Output: Intake and Output for Last 24 Hours 02/18/24 02/19/24 02/20/24 23:59 23:59 23:59 Intake Total 1220 / 1220 Output Total 400 / 400 Balance 820 / 820 Lab / Micro Data 02/20/24 04:10 02/20/24 08:01 Labs: Laboratory Results - last 24 hr 02/20/24 00:07: WBC 7.2, RBC 4.11 L, Hgb 13.4, Hct 35.9 L, MCV 87.3, MCH 32.6 H, MCHC 37.3 H, RDW Std Deviation 50.2 H, RDW Coeff of [place] 15.7 H, Plt Count 246, MPV 8.8, Immature Gran % (Auto) 1.900 H, Neut % (Auto) 80.3 H, Lymph % (Auto) 8.6 L, [place] % (Auto) 8.9, Eos % (Auto) 0.0, Baso % (Auto) 0.3, Absolute Neuts (auto) 5.8, Absolute Lymphs (auto) 0.62 L, Nucleated RBC % 0, Sodium 110 L*, Potassium 3.1 L, Chloride 70 L*, Carbon Dioxide 24.0, Anion Gap 16 H, BUN 7, Creatinine 0.67, Estim Creat Clear Calc 98.88, Est GFR (MDRD) Af Amer 118, Est GFR (MDRD) Non-Af 97, BUN/Creatinine Ratio 10.5, Glucose 116 H, Calcium 8.4 L, Magnesium 1.6, Total Bilirubin 2.60 H, Direct Bilirubin 0.86 H, AST 123 H, ALT 75 H, Alkaline Phosphatase 79, Total Protein 6.7, Albumin 3.3, Globulin 3.4, Lipase 37, TSH 8.07 H, Ethyl Alcohol 6.0 02/20/24 01:40: Serum Osmolality 237 L 02/20/24 04:10: WBC 7.0, RBC 3.84 L, Hgb 12.4, Hct 34.0 L, MCV 88.5, MCH 32.3 H, MCHC 36.5 H, RDW Std Deviation 50.0 H, RDW Coeff of [place] 15.8 H, Plt Count 223, MPV 8.8, Sodium 113 L*, Potassium 3.3 L, Chloride 74 L*, Carbon Dioxide 26.0, Anion Gap 13, BUN 8, Creatinine 0.70, Estim Creat Clear Calc 92.98, Est GFR (MDRD) Af Amer 112, Est GFR (MDRD) Non-Af 93, BUN/Creatinine Ratio 11.5, Glucose 110 H, Calcium 7.9 L, Phosphorus 1.4 L 02/20/24 05:45: PT 13.4, INR 1.0 02/20/24 06:40: Urine Osmolality 600, Ur Random Sodium 16 02/20/24 08:01: Sodium 111 L*, Potassium 3.4 L, Chloride 75 L, Carbon Dioxide 24.0, Anion Gap 12, BUN 8, Creatinine 0.60, Estim Creat Clear Calc 108.48, Est GFR (MDRD) Af Amer 133, Est GFR (MDRD) Non-Af 110, BUN/Creatinine Ratio 13.3, Glucose 110 H, Calcium 8.0 L Physical Exam Narrative GENERAL: cooperative but appears anxious HEENT: Atraumatic; normocephalic EYES; Anicteric, Normal Conjunctiva NECK; supple, normal thyroid, RESPIRATORY: Diminished to auscultation CARDIOVASCULAR: Regular S1 S2, GI: soft, normoactive bowel sounds, : No Renal angle tenderness; EXTREMITIES: No edema, no clubbing, MUSCULOSKELETAL: no muscle wasting NEURO: Awake; no lateralizing signs. SKIN: No Rash PSYCH; Flat affect Assessment & Plan Assessment/Plan (1) Acute hyponatremia: (2) Hypochloremia: (3) Dehydration: (4) Alcohol abuse: (5) Elevated liver enzymes: PLAN: Plan Patient is a 53-year-old lady with a history of chronic alcohol dependence admitted with nausea and vomiting. Patient was found to have severe hyponatremia with sodium level of 110. 1. Severe hyponatremia -Multifactorial including beer potomania, as well as patient use of HCTZ and GI losses. With patient sodium being significantly low patient was admitted to the intensive care unit. Patient was managed initially with fluid restriction however sodium levels continue to decline necessitating initiation of hypertonic saline. Goal is to raise sodium level 4 mEq per 24 hours. Consult was also placed on admission to nephrology 2. Acute alcohol withdrawal - Patient has been admitted for treatment with phenobarb taper in addition to adjuvant medications including gabapentin, Bentyl, hydroxyzine and clonidine as needed for alcohol withdrawal symptoms. Patient was also placed on thiamine and folic acidConsultation placed to 180 counseling services 3. Hypokalemia -Corrected per protocol 4. Hypophosphatemia ? Secondary to chronic alcohol use corrected per protocol repeat labs ordered for monitoring 5. Hypomagnesemia -Corrected for protocol 6. Acute transaminitis ? Secondary to alcohol use with AST being greater than ALT 7. Essential hypertension ? Patient is on lisinopril and HCTZ, HCTZ was discontinued 8. Class I obesity with BMI of 35 ? Complicating care weight loss advised 9. Hypothyroidism - Patient is on levothyroxine home dose continued 10. GERD ? On PPI 11. DVT prophylaxis - On enoxaparin Critical time spent in the patient's overall evaluation,decision-making process, review of diagnostic data, adjustment of management, discussion with other providers, nursing nursing and ancillary staff involved in patient's care documentation, 55 Minutes Charges/Coding Procedures Hospitalists Procedures: 54057 Critical Care 1st Hr
[2024-02-20] MEDS: Phenobarbital 32.4 MG Tablet 64.8 MG PO ×4 (09:19→20:32)
[2024-02-20] MEDS: Magnesium Chloride 64 MG Delay Rel.Tablet 128 MG PO ×2 (09:20→20:31)
[2024-02-20] MEDS: 0.9% Normal Saline (1000mL) 1,000 ML 100 ML IV (09:28)
[2024-02-20] MEDS: Na Biphos/Potassium Phosphate PACKET 1 PACKET PO ×2 (09:37→20:31)
--- NOTE | 2024-02-20 10:44 | PCM.CONS.R ---
Assessment & Plan Assessment/Plan (1) Acute hyponatremia: PLAN: Baseline sodium was normal in November 2023 at 134. Came in with a sodium of 110. Essentially completely asymptomatic except for some nausea. Typically this happens in slow progressive hyponatremia and so this is likely of chronic hyponatremia. We will have to correct this very slowly. Sodium was 110 around midnight. We will plan to push up the sodium to around 116 by midnight tonight. Urine sodium less than 20, urine osmolality 600. These numbers or without diuretics which she stopped several days ago. His labs are consistent with hypovolemic hyponatremia. Slowly replace IV fluids. Start normal saline at 100 cc/h. If she has massive urine output, we will give a dose of desmopressin. Discussed with ICU staff HPI Consult Data Date of Consult: 02/20/24 HPI Narrative Reason for Consultation: Hyponatremia. HPI Narrative: ORA ADAMS, is a 53 F who presents to the hospital with nausea, vomiting, generalized weakness. Nephrology on consultation in view of hyponatremia. Her primary care physician is at [facility]. Last known sodium is from November 2023 and it was 134. She did have 1 episode of hyponatremia at 126 about 11 months ago. Presented to the hospital with nausea, vomiting. Found to have a sodium of 110 on admission. She received some IV fluids, repeat sodium was 113, another repeat this morning came back at 111. She is completely asymptomatic other than some nausea. History of alcohol use, states has been trying to cut back recently. History of weight loss in the setting of medication use. Apparently she has lost about 60 pounds using the medication however it got too expensive and she stopped taking it. Weight is about the same recently. For hypertension she was on lisinopril, hydrochlorothiazide, due to weight loss her blood pressure has improved, hydrochlorothiazide was discontinued few weeks ago. Denies any urinary complaints. [facility] Medical History History of breast cancer HTN (hypertension) Hypothyroid Home Medications ?Medication ?Instructions ?Recorded ?Last Taken ?Type omeprazole 40 mg capsule,delayed 40 mg PO DAILY GERD 12/02/20 11/30/20 History release trazodone 50 mg tablet 25 - 50 mg PO QHS PRN Sleep 12/02/20 1 Week Ago History ~11/25/20 levothyroxine 150 mcg tablet 150 mcg PO DAILY 02/20/24 Unknown History lisinopril 20 1 tab PO DAILY BLOOD PRESSURE 02/20/24 Unknown History mg-hydrochlorothiazide 25 mg tablet Allergy/AdvReac Type Severity Reaction Status Date / Time Penicillins Allergy Hives Verified 02/19/24 23:52 Sulfa (Sulfonamide Allergy Hives Verified 02/19/24 23:52 Antibiotics) vancomycin Allergy Hives Verified 02/19/24 23:52 Surgical History H/O mastectomy H/O: hysterectomy Social History Smoking Status: Former smoker ROS ROS Narrative Negative except above Physical Exam Narrative Alert awake oriented x 3 no obvious distress no pallor no icterus no JVD s1s2 no murmurs lungs clear abdomen soft no organomegaly no edema no cyanosis Lab / Micro Data 02/20/24 04:10 02/20/24 08:01 Labs: Laboratory Results - last 24 hr 02/20/24 00:07: WBC 7.2, RBC 4.11 L, Hgb 13.4, Hct 35.9 L, MCV 87.3, MCH 32.6 H, MCHC 37.3 H, RDW Std Deviation 50.2 H, RDW Coeff of [place] 15.7 H, Plt Count 246, MPV 8.8, Immature Gran % (Auto) 1.900 H, Neut % (Auto) 80.3 H, Lymph % (Auto) 8.6 L, [place] % (Auto) 8.9, Eos % (Auto) 0.0, Baso % (Auto) 0.3, Absolute Neuts (auto) 5.8, Absolute Lymphs (auto) 0.62 L, Nucleated RBC % 0, Sodium 110 L*, Potassium 3.1 L, Chloride 70 L*, Carbon Dioxide 24.0, Anion Gap 16 H, BUN 7, Creatinine 0.67, Estim Creat Clear Calc 98.88, Est GFR (MDRD) Af Amer 118, Est GFR (MDRD) Non-Af 97, BUN/Creatinine Ratio 10.5, Glucose 116 H, Calcium 8.4 L, Magnesium 1.6, Total Bilirubin 2.60 H, Direct Bilirubin 0.86 H, AST 123 H, ALT 75 H, Alkaline Phosphatase 79, Total Protein 6.7, Albumin 3.3, Globulin 3.4, Lipase 37, TSH 8.07 H, Ethyl Alcohol 6.0 02/20/24 01:40: Serum Osmolality 237 L 02/20/24 04:10: WBC 7.0, RBC 3.84 L, Hgb 12.4, Hct 34.0 L, MCV 88.5, MCH 32.3 H, MCHC 36.5 H, RDW Std Deviation 50.0 H, RDW Coeff of [place] 15.8 H, Plt Count 223, MPV 8.8, Sodium 113 L*, Potassium 3.3 L, Chloride 74 L*, Carbon Dioxide 26.0, Anion Gap 13, BUN 8, Creatinine 0.70, Estim Creat Clear Calc 92.98, Est GFR (MDRD) Af Amer 112, Est GFR (MDRD) Non-Af 93, BUN/Creatinine Ratio 11.5, Glucose 110 H, Calcium 7.9 L, Phosphorus 1.4 L 02/20/24 05:45: PT 13.4, INR 1.0 02/20/24 06:40: Urine Osmolality 600, Ur Random Sodium 16 02/20/24 08:01: Sodium 111 L*, Potassium 3.4 L, Chloride 75 L, Carbon Dioxide 24.0, Anion Gap 12, BUN 8, Creatinine 0.60, Estim Creat Clear Calc 108.48, Est GFR (MDRD) Af Amer 133, Est GFR (MDRD) Non-Af 110, BUN/Creatinine Ratio 13.3, Glucose 110 H, Calcium 8.0 L
[2024-02-20 12:21] LABS: Anion Gap 11 (5-15); BUN 8 mg/dL (7-18); BUN/Creat Ratio 11.7 RATIO (10-20); Chloride 76 mmol/L (98-107); Creatinine, Serum 0.69 mg/dL (0.55-1.02); EST Glomerular Filtration Rate 94 mL/min (>60); Est Glom Filt Rate - Afr Amer 114 mL/min (>60); Estimated Creatinine Clearance 94.33 ml/min; Glucose 104 mg/dL (74-106); Potassium 3.2 mmol/L (3.5-5.1); Sodium Level 114 mmol/L (136-145)
[2024-02-20] MEDS: Acetaminophen 325 MG Tablet 650 MG PO ×2 (14:16→20:32)
[2024-02-20] MEDS: Potassium Chloride Oral Tablet 20 MEQ PO ×2 (14:57→17:04)
[2024-02-20 14:58] LABS: Anion Gap 11 (5-15); BUN 7 mg/dL (7-18); BUN/Creat Ratio 9.8 RATIO (10-20); Calcium,Total 7.8 mg/dL (8.5-10.1); Chloride 79 mmol/L (98-107); Creatinine, Serum 0.72 mg/dL (0.55-1.02); EST Glomerular Filtration Rate 90 mL/min (>60); Est Glom Filt Rate - Afr Amer 109 mL/min (>60); Glucose 94 mg/dL (74-106); Potassium 3.3 mmol/L (3.5-5.1); Sodium Level 117 mmol/L (136-145)
[2024-02-20] MEDS: Desmopressin Acetate 4 MCG/ML Ampul 2 MCG IV (15:25)
[2024-02-20 16:53] LABS: Magnesium 2.7 mg/dL (1.6-2.6); Phosphorus 1.6 mg/dL (2.5-4.9)
[2024-02-20 17:02] LABS: Anion Gap 11 (5-15); BUN 8 mg/dL (7-18); BUN/Creat Ratio 11.2 RATIO (10-20); Chloride 78 mmol/L (98-107); Creatinine, Serum 0.72 mg/dL (0.55-1.02); EST Glomerular Filtration Rate 90 mL/min (>60); Est Glom Filt Rate - Afr Amer 109 mL/min (>60); Glucose 97 mg/dL (74-106); Potassium 3.4 mmol/L (3.5-5.1); Sodium Level 116 mmol/L (136-145)
--- NOTE | 2024-02-20 17:22 | NURSING ---
Dropped Phenobarb 32.4mg tab on floor during administration. Patient took other two tabs (64.8) then wasted the dropped tablet in omnicell with another RN. Pulled additional phenobarb 32.4mg for administration.
[2024-02-20] MEDS: Potassium Phosphate 40 MM in 0.9% Normal Saline (500mL Bag) 500 ML 62.5 MM IV (17:59)
[2024-02-20] MEDS: traZODone 50 MG Tablet PO (20:32)
[2024-02-20] MEDS: hydrOXYzine PAM 25 MG Capsule 50 MG PO (20:32)
[2024-02-20] MEDS: Dicyclomine 10 MG Capsule 20 MG PO (20:40)
[2024-02-20 20:50] LABS: Anion Gap 9 (5-15); BUN 8 mg/dL (7-18); BUN/Creat Ratio 11.5 RATIO (10-20); Calcium,Total 7.3 mg/dL (8.5-10.1); Chloride 83 mmol/L (98-107); EST Glomerular Filtration Rate 93 mL/min (>60); Est Glom Filt Rate - Afr Amer 112 mL/min (>60); Estimated Creatinine Clearance 92.98 ml/min; Glucose 90 mg/dL (74-106); Potassium 3.3 mmol/L (3.5-5.1); Sodium Level 118 mmol/L (136-145)
[2024-02-20] MEDS: Dextrose 5%-Water (500mL Bag) 500 ML 999 ML IV (21:02)
[2024-02-21] VITALS (18 sets, daily range): BP systolic 97–141; BP diastolic 63–96; PULSE 72–93; RESP 14–28; TEMP 36.2–37.3; O2SAT 91–100; BMI 35.6
[2024-02-21 01:10] LABS: Anion Gap 9 (5-15); BUN 7 mg/dL (7-18); BUN/Creat Ratio 12.6 RATIO (10-20); Calcium,Total 6.2 mg/dL (8.5-10.1); Chloride 90 mmol/L (98-107); Creatinine, Serum 0.56 mg/dL (0.55-1.02); EST Glomerular Filtration Rate 120 mL/min (>60); Est Glom Filt Rate - Afr Amer 145 mL/min (>60); Estimated Creatinine Clearance 116.22 ml/min; Glucose 78 mg/dL (74-106); Potassium 3.8 mmol/L (3.5-5.1); Sodium Level 121 mmol/L (136-145)
[2024-02-21] MEDS: Phenobarbital 32.4 MG Tablet 64.8 MG PO ×6 (01:18→22:34)
[2024-02-21] MEDS: 0.9% Saline Lock 10 ML Syringe IV ×2 (01:19→12:41)
[2024-02-21] MEDS: Dextrose 5%-Water (1000mL Bag) 1,000 ML 999 ML IV (01:28)
[2024-02-21 04:34] LABS: Absolute Lymphocyte Count 0.82 X10^3/uL (0.83-4.51); Absolute Neutrophil Count 4.5 X10^3/uL (2.0-7.7); Basophil# 0.02 X10^3/uL; Basophil% 0.3 % (0-1); Eosinophil# 0.06 X10^3/uL; Hematocrit 31.2 % (37-47); Hemoglobin 11.1 g/dL (12.0-15.0); Lymphocyte # 0.82 X10^3/ul (0.83-4.51); Lymphocyte % 13.6 % (19-41); Mean Corp Hgb Conc 35.6 g/dL (32-36); Mean Corpuscular Hgb 32.4 pg (27.0-32.0); Mean Platelet Vol. 9.4 fl (6.2-12.0); Monocyte# 0.62 X10^3/uL; Monocyte% 10.3 % (0-10); NRBC Flagged by Analyzer 0 % (0-5); Neutrophil # 4.47 X10^3/uL (2.7-7.7); Platelet Count 196 K/mm3 (150-450); RBC Distribution Width CV 16.2 % (11.6-14.6); RBC Distribution Width SD 53.9 fl (35.1-43.9); Red Blood Count 3.43 M/mm3 (4.2-5.4)
[2024-02-21 05:04] LABS: Anion Gap 9 (5-15); BUN 6 mg/dL (7-18); BUN/Creat Ratio 9.7 RATIO (10-20); Calcium,Total 7.1 mg/dL (8.5-10.1); Chloride 83 mmol/L (98-107); Creatinine, Serum 0.62 mg/dL (0.55-1.02); EST Glomerular Filtration Rate 107 mL/min (>60); Est Glom Filt Rate - Afr Amer 129 mL/min (>60); Estimated Creatinine Clearance 105.43 ml/min; Glucose 72 mg/dL (74-106); Magnesium 2.5 mg/dL (1.6-2.6); Potassium 3.9 mmol/L (3.5-5.1); Sodium Level 116 mmol/L (136-145)
[2024-02-21] MEDS: Levothyroxine 150 MCG Tablet PO (05:13)
[2024-02-21 05:21] LABS: Phosphorus 3.4 mg/dL (2.5-4.9)
[2024-02-21] MEDS: Pantoprazole Sodium 40 MG Tablet PO (07:32)
[2024-02-21] MEDS: Potassium Chloride Oral Tablet 20 MEQ PO ×2 (07:32→17:27)
[2024-02-21] MEDS: Folic Acid 1 MG Tablet PO (07:32)
[2024-02-21] MEDS: Enoxaparin 40 MG/0.4 ML Syringe SC (07:32)
[2024-02-21] MEDS: Thiamine Hydrochloride 100 MG Tablet PO (07:32)
[2024-02-21] MEDS: Na Biphos/Potassium Phosphate PACKET 1 PACKET PO ×2 (07:33→22:36)
[2024-02-21] MEDS: Magnesium Chloride 64 MG Delay Rel.Tablet 128 MG PO ×2 (07:33→22:35)
--- NOTE | 2024-02-21 08:46 | PN.HOSP_ITS ---
Subjective Subjective Clinically, no issues overnight. Sodium was 116 this morning. CIWA score of 1 Objective Data Objective Data Vital Signs: Vital Signs Temp Pulse Resp BP Pulse Ox O2 Del Method 98.4 F 93 15 129/96 H 100 Room Air 02/21/24 08:00 02/21/24 08:00 02/21/24 08:00 02/21/24 08:00 02/21/24 08:00 02/21/24 08:00 Oxygen Delivery Method Room Air Weight: 193 lb 5.526 oz Body Mass Index (BMI) 35.6 Intake & Output: Intake and Output for Last 24 Hours 02/20/24 02/21/24 02/22/24 03:59 03:59 03:59 Intake Total 1000 / 1000 3291.6633 / 3291.6633 120 / 120 Output Total 2625 / 2625 1200 / 1200 Balance 1000 / 3407 656.8039 / 666.6633 -1080 / -1080 Lab / Micro Data 02/21/24 04:22 02/21/24 04:22 Labs: Laboratory Results - last 24 hr 02/20/24 08:01: Sodium 111 L*, Potassium 3.4 L, Chloride 75 L, Carbon Dioxide 24.0, Anion Gap 12, BUN 8, Creatinine 0.60, Estim Creat Clear Calc 108.48, Est GFR (MDRD) Af Amer 133, Est GFR (MDRD) Non-Af 110, BUN/Creatinine Ratio 13.3, G lucose 110 H, Calcium 8.0 L 02/20/24 11:55: Sodium 114 L*, Potassium 3.2 L, Chloride 76 L, Carbon Dioxide 27.0, Anion Gap 11, BUN 8, Creatinine 0.69, Estim Creat Clear Calc 94.33, Est GFR (MDRD) Af Amer 114, Est GFR (MDRD) Non-Af 94, BUN/Creatinine Ratio 11.7, Glucose 104, Calcium 8.0 L 02/20/24 14:25: Sodium 117 L*, Potassium 3.3 L, Chloride 79 L, Carbon Dioxide 27.0, Anion Gap 11, BUN 7, Creatinine 0.72, Estim Creat Clear Calc 90.40, Est GFR (MDRD) Af Amer 109, Est GFR (MDRD) Non-Af 90, BUN/Creatinine Ratio 9.8 L, Glucose 94, Calcium 7.8 L 02/20/24 16:15: Sodium 116 L*, Potassium 3.4 L, Chloride 78 L, Carbon Dioxide 27.0, Anion Gap 11, BUN 8, Creatinine 0.72, Estim Creat Clear Calc 90.40, Est GFR (MDRD) Af Amer 109, Est GFR (MDRD) Non-Af 90, BUN/Creatinine Ratio 11.2, Glucose 97, Calcium 8.0 L, Phosphorus 1.6 L, Magnesium 2.7 H 02/20/24 20:26: Sodium 118 L*, Potassium 3.3 L, Chloride 83 L, Carbon Dioxide 26.0, Anion Gap 9, BUN 8, Creatinine 0.70, Estim Creat Clear Calc 92.98, Est GFR (MDRD) Af Amer 112, Est GFR (MDRD) Non-Af 93, BUN/Creatinine Ratio 11.5, Glucose 90, Calcium 7.3 L 02/21/24 00:19: Sodium 121 L, Potassium 3.8, Chloride 90 L, Carbon Dioxide 22.0, Anion Gap 9, BUN 7, Creatinine 0.56, Estim Creat Clear Calc 116.22, Est GFR (MDRD) Af Amer 145, Est GFR (MDRD) Non-Af 120, BUN/Creatinine Ratio 12.6, Glucose 78, Calcium 6.2 L* 02/21/24 04:22: WBC 6.0, RBC 3.43 L, Hgb 11.1 L, Hct 31.2 L, MCV 91.0, MCH 32.4 H, MCHC 35.6, RDW Std Deviation 53.9 H, RDW Coeff of [place] 16.2 H, Plt Count 196, MPV 9.4, Immature Gran % (Auto) 0.800, Neut % (Auto) 74.0 H, Lymph % (Auto) 13.6 L, [place] % (Auto) 10.3 H, Eos % (Auto) 1.0, Baso % (Auto) 0.3, Absolute Neuts (auto) 4.5, Absolute Lymphs (auto) 0.82 L, Nucleated RBC % 0, Sodium 116 L*, Potassium 3.9, Chloride 83 L, Carbon Dioxide 24.0, Anion Gap 9, BUN 6 L, Creatinine 0.62, Estim Creat Clear Calc 105.43, Est GFR (MDRD) Af Amer 129, Est GFR (MDRD) Non-Af 107, BUN/Creatinine Ratio 9.7 L, Glucose 72 L, Calcium 7.1 L, Phosphorus 3.4, Magnesium 2.5 Physical Exam Narrative General: Alert, Oriented x3, Cooperative, No apparent distress HEENT: Atraumatic, PERRLA, EOMI, Normocephalic Oral: Moist Mucosa Neck: Supple, No JVD Lungs: Diminished, Normal air movement, No rhonchi, No wheeze, No rales Cardiovascular: Regular rate, Regular Rhythm, Normal S1, Normal S2, No murmurs Abdomen: Soft, Non Tender, Non-Distended, No Hepato-splenomegaly Extremities: No edema, Capillary Refill Less than 3 Seconds Skin: No rashes, No breakdown Musculoskeletal: No Tenderness to Palpation of Joints or Extremities Neurological: No focal neurological deficits, Motor Exam 5/5 strength throughout, Sensory exam intact to light touch and pain Psych/Mental Status: Flat Assessment & Plan Assessment/Plan (1) Acute hyponatremia: (2) Hypochloremia: (3) Dehydration: (4) Alcohol abuse: (5) Elevated liver enzymes: PLAN: Plan 1. Acute alcohol withdrawal with severe hypovolemic hyponatremia as well as hypokalemia, hypophosphatemia and hypomagnesemia/elevated LFTs ? Continue with the alcohol withdrawal protocol ? Appreciate nephrology's assistance with sodium correction ? Will monitor and replace electrolytes as necessary ? LFTs are elevated secondary to alcohol abuse, follow-up as an outpatient 2. Essential HTN ? Hold HCTZ given the hyponatremia ? Hold lisinopril ? Will monitor make adjustments as necessary 3. Hypothyroidism ? Continue with Synthroid ? TSH is slightly elevated at 8.07, will have her follow-up as an outpatient for recheck now that she will be consistently taking her Synthroid 4. GERD ? Stable - Continue with PPI DVT: Ambulation Charges/Coding Visit Charges Inpatient E&M: 76787 Subs Hosp L2
[2024-02-21 09:49] LABS: Sodium Level 119 mmol/L (136-145)
[2024-02-21] MEDS: Dicyclomine 10 MG Capsule 20 MG PO ×2 (10:55→22:40)
[2024-02-21 12:05] LABS: Sodium Level 120 mmol/L (136-145)
[2024-02-21] MEDS: Desmopressin Acetate 4 MCG/ML Ampul 2 MCG IV (12:41)
--- NOTE | 2024-02-21 13:45 | CASEMGMT ---
MANOJ MARROQUIN Face to Face with patient for initial transition planning/care coordination assessment. RN CM introduced self and role at [facility]. Patient lying in bed, alert and oriented, significant other at bedside, patient asked significant other to step out. Patient willing to participate in assessment and is able to answer all questions appropriately. Care providers, pharmacy, and demographics verified. PCP: Arturo RE[facility]ABILIT[facility] COUNSELOR Specialists: Connor BAILEY Preferred Pharmacy: [facility] Insurance: [employer] Prescription Benefit: yes Living Will/HPOA: none LNOK: Significant other Living Arrangements: Patient lives with significant other in a single story home with 2-4 step with railing to enter the home. Patient states she is independent at home. Transportation: self, significant other DME/HHC: Patient states she has shower chair at home. No previous HHC or SNF Patient states she was drinking 2-3 vodka cocktails every evening. Patient declines resources for alcohol cessation. Patient wishes to discharge home, denies need for home health at this time. Patient states she has no further needs or concerns at this time. CM to follow for discharge planning needs that may arise. Disposition Plan: Patient to discharge home with family support and follow-up plans in place. Cintia VILCHIS, RN, CM
[2024-02-21 16:37] LABS: Sodium Level 122 mmol/L (136-145)
--- NOTE | 2024-02-21 18:12 | NURSING ---
This RN took over patients care at 14:40.
--- NOTE | 2024-02-21 19:15 | PCM.PN.REN ---
Subjective Subjective no new complaints Objective Data Objective Data Vital Signs: Vital Signs Temp Pulse Resp BP Pulse Ox O2 Del Method 98.5 F 90 16 126/70 H 99 Room Air 02/21/24 16:30 02/21/24 16:30 02/21/24 16:30 02/21/24 16:30 02/21/24 16:30 02/21/24 16:30 Oxygen Delivery Method Room Air Weight: 87.7 kg Body Mass Index (BMI) 35.6 Intake & Output: Intake and Output for Last 24 Hours 02/19/24 02/20/24 02/21/24 23:59 23:59 23:59 Intake Total 2778.33 / 2778.33 2153.3333 / 2153.3333 Output Total 1950 / 1950 2179 / 2179 Balance 828.33 / 828.33 -25.6667 / -25.6667 Lab / Micro Data 02/21/24 04:22 02/21/24 15:50 Labs: Laboratory Results - last 24 hr 02/20/24 20:26: Sodium 118 L*, Potassium 3.3 L, Chloride 83 L, Carbon Dioxide 26.0, Anion Gap 9, BUN 8, Creatinine 0.70, Estim Creat Clear Calc 92.98, Est GFR (MDRD) Af Amer 112, Est GFR (MDRD) Non-Af 93, BUN/Creatinine Ratio 11.5, Glucose 90, Calcium 7.3 L 02/21/24 00:19: Sodium 121 L, Potassium 3.8, Chloride 90 L, Carbon Dioxide 22.0, Anion Gap 9, BUN 7, Creatinine 0.56, Estim Creat Clear Calc 116.22, Est GFR (MDRD) Af Amer 145, Est GFR (MDRD) Non-Af 120, BUN/Creatinine Ratio 12.6, Glucose 78, Calcium 6.2 L* 02/21/24 04:22: WBC 6.0, RBC 3.43 L, Hgb 11.1 L, Hct 31.2 L, MCV 91.0, MCH 32.4 H, MCHC 35.6, RDW Std Deviation 53.9 H, RDW Coeff of [place] 16.2 H, Plt Count 196, MPV 9.4, Immature Gran % (Auto) 0.800, Neut % (Auto) 74.0 H, Lymph % (Auto) 13.6 L, [place] % (Auto) 10.3 H, Eos % (Auto) 1.0, Baso % (Auto) 0.3, Absolute Neuts (auto) 4.5, Absolute Lymphs (auto) 0.82 L, Nucleated RBC % 0, Sodium 116 L*, Potassium 3.9, Chloride 83 L, Carbon Dioxide 24.0, Anion Gap 9, BUN 6 L, Creatinine 0.62, Estim Creat Clear Calc 105.43, Est GFR (MDRD) Af Amer 129, Est GFR (MDRD) Non-Af 107, BUN/Creatinine Ratio 9.7 L, Glucose 72 L, Calcium 7.1 L, Phosphorus 3.4, Magnesium 2.5 02/21/24 09:05: Sodium 119 L* 02/21/24 11:50: Sodium 120 L 02/21/24 15:50: Sodium 122 L Physical Exam Narrative Alert awake oriented x 3 no obvious distress no pallor no icterus no JVD s1s2 no murmurs lungs clear abdomen soft no organomegaly no edema no cyanosis Assessment & Plan Assessment/Plan (1) Acute hyponatremia: PLAN: Baseline sodium was normal in November 2023 at 134. Came in with a sodium of 110. Essentially completely asymptomatic except for some nausea. Typically this happens in slow progressive hyponatremia and so this is likely of chronic hyponatremia. We will have to correct this very slowly. Sodium was 110 around midnight. We will plan to push up the sodium to by midnight tonight. Urine sodium less than 20, urine osmolality 600. These numbers or without diuretics which she stopped several days ago. His labs are consistent with hypovolemic hyponatremia. multiple adjustments overnight asking about going home explained the need for slowing correcting sodium
[2024-02-21 21:21] LABS: Sodium Level 121 mmol/L (136-145)
[2024-02-21] MEDS: traZODone 50 MG Tablet PO (22:39)
[2024-02-22 00:37] LABS: Sodium Level 122 mmol/L (136-145)
[2024-02-22] MEDS: Phenobarbital 32.4 MG Tablet 64.8 MG PO ×6 (01:37→22:00)
[2024-02-22 03:17] VITALS: BP 110/70; PULSE 72; RESP 18; TEMP 36.7; O2SAT 99
[2024-02-22 04:02] LABS: Absolute Lymphocyte Count 0.84 X10^3/uL (0.83-4.51); Absolute Neutrophil Count 3.7 X10^3/uL (2.0-7.7); Basophil# 0.05 X10^3/uL; Eosinophil# 0.18 X10^3/uL; Eosinophils% 3.5 % (0-5); Hematocrit 33.8 % (37-47); Hemoglobin 11.7 g/dL (12.0-15.0); Lymphocyte # 0.84 X10^3/ul (0.83-4.51); Lymphocyte % 16.1 % (19-41); Mean Corp Hgb Conc 34.6 g/dL (32-36); Mean Corpuscular Hgb 32.7 pg (27.0-32.0); Mean Corpuscular Volume 94.4 fL (81-99); Mean Platelet Vol. 9.5 fl (6.2-12.0); Monocyte# 0.45 X10^3/uL; Monocyte% 8.6 % (0-10); NRBC Flagged by Analyzer 0 % (0-5); Neutrophil # 3.65 X10^3/uL (2.7-7.7); Platelet Count 193 K/mm3 (150-450); RBC Distribution Width CV 16.9 % (11.6-14.6); RBC Distribution Width SD 58.4 fl (35.1-43.9); Red Blood Count 3.58 M/mm3 (4.2-5.4); White Blood Count 5.2 K/mm3 (4.4-11.0)
[2024-02-22 04:16] LABS: Anion Gap 6 (5-15); BUN 7 mg/dL (7-18); BUN/Creat Ratio 11.7 RATIO (10-20); Calcium,Total 7.7 mg/dL (8.5-10.1); Chloride 89 mmol/L (98-107); EST Glomerular Filtration Rate 110 mL/min (>60); Est Glom Filt Rate - Afr Amer 133 mL/min (>60); Estimated Creatinine Clearance 108.94 ml/min; Glucose 89 mg/dL (74-106); Potassium 3.7 mmol/L (3.5-5.1); Sodium Level 122 mmol/L (136-145)
[2024-02-22] MEDS: Levothyroxine 150 MCG Tablet PO (05:20)
[2024-02-22 06:00] VITALS: BMI 35.5
[2024-02-22 08:00] VITALS: O2SAT 98
[2024-02-22] MEDS: Magnesium Chloride 64 MG Delay Rel.Tablet 128 MG PO ×2 (08:28→21:55)
[2024-02-22] MEDS: Thiamine Hydrochloride 100 MG Tablet PO (08:29)
[2024-02-22] MEDS: Na Biphos/Potassium Phosphate PACKET 1 PACKET PO ×2 (08:29→21:55)
[2024-02-22] MEDS: Folic Acid 1 MG Tablet PO (08:29)
[2024-02-22] MEDS: Enoxaparin 40 MG/0.4 ML Syringe SC (08:29)
[2024-02-22] MEDS: Pantoprazole Sodium 40 MG Tablet PO (08:29)
[2024-02-22] MEDS: Potassium Chloride Oral Tablet 20 MEQ PO ×2 (08:29→17:05)
[2024-02-22 08:43] VITALS: BP 122/74; PULSE 84; RESP 18; TEMP 36.7; O2SAT 98
[2024-02-22 08:47] LABS: Sodium Level 124 mmol/L (136-145)
--- NOTE | 2024-02-22 09:04 | PCM.PN.HOSP ---
Subjective Subjective Resting comfortably. Sodium is improving Objective Data Objective Data Vital Signs: Vital Signs Temp Pulse Resp BP Pulse Ox O2 Del Method 98.1 F 84 18 122/74 H 98 Room Air 02/22/24 08:43 02/22/24 08:43 02/22/24 08:43 02/22/24 08:43 02/22/24 08:43 02/22/24 08:43 Oxygen Delivery Method Room Air Weight: 194 lb 3.636 oz Body Mass Index (BMI) 35.5 Intake & Output: Intake and Output for Last 24 Hours 02/21/24 02/22/24 02/23/24 03:59 03:59 03:59 Intake Total 3291.6633 / 3291.6633 640 / 640 Output Total 2625 / 2625 1504 / 1504 Balance 666.6633 / 666.6633 -864 / -864 Lab / Micro Data 02/22/24 03:48 02/22/24 08:00 Labs: Laboratory Results - last 24 hr 02/21/24 09:05: Sodium 119 L* 02/21/24 11:50: Sodium 120 L 02/21/24 15:50: Sodium 122 L 02/21/24 20:45: Sodium 121 L 02/22/24 00:08: Sodium 122 L 02/22/24 03:48: WBC 5.2, RBC 3.58 L, Hgb 11.7 L, Hct 33.8 L, MCV 94.4, MCH 32.7 H, MCHC 34.6, RDW Std Deviation 58.4 H, RDW Coeff of [place] 16.9 H, Plt Count 193, MPV 9.5, Immature Gran % (Auto) 0.800, Neut % (Auto) 70.0, Lymph % (Auto) 16.1 L, [place] % (Auto) 8.6, Eos % (Auto) 3.5, Baso % (Auto) 1.0, Absolute Neuts (auto) 3.7, Absolute Lymphs (auto) 0.84, Nucleated RBC % 0, Sodium 122 L, Potassium 3.7, Chloride 89 L, Carbon Dioxide 27.0, Anion Gap 6, BUN 7, Creatinine 0.60, Estim Creat Clear Calc 108.94, Est GFR (MDRD) Af Amer 133, Est GFR (MDRD) Non-Af 110, BUN/Creatinine Ratio 11.7, Glucose 89, Calcium 7.7 L 02/22/24 08:00: Sodium 124 L Physical Exam Narrative General: Alert, Oriented x3, Cooperative, No apparent distress HEENT: Atraumatic, PERRLA, EOMI, Normocephalic Oral: Moist Mucosa Neck: Supple, No JVD Lungs: Diminished, Normal air movement, No rhonchi, No wheeze, No rales Cardiovascular: Regular rate, Regular Rhythm, Normal S1, Normal S2, No murmurs Abdomen: Soft, Non Tender, Non-Distended, No Hepato-splenomegaly Extremities: No edema, Capillary Refill Less than 3 Seconds Skin: No rashes, No breakdown Musculoskeletal: No Tenderness to Palpation of Joints or Extremities Neurological: No focal neurological deficits, Motor Exam 5/5 strength throughout, Sensory exam intact to light touch and pain Psych/Mental Status: Flat Assessment & Plan Assessment/Plan (1) Acute hyponatremia: (2) Hypochloremia: (3) Dehydration: (4) Alcohol abuse: (5) Elevated liver enzymes: PLAN: Plan 1. Acute alcohol withdrawal with severe hypovolemic hyponatremia as well as hypokalemia, hypophosphatemia and hypomagnesemia/elevated LFTs ? Continue with the alcohol withdrawal protocol ? Appreciate nephrology's assistance with sodium correction ? Will monitor and replace electrolytes as necessary ? LFTs are elevated secondary to alcohol abuse, follow-up as an outpatient 2. Essential HTN ? Hold HCTZ given the hyponatremia ? Hold lisinopril ? Will monitor make adjustments as necessary 3. Hypothyroidism ? Continue with Synthroid ? TSH is slightly elevated at 8.07, will have her follow-up as an outpatient for recheck now that she will be consistently taking her Synthroid 4. GERD ? Stable ?Continue with PPI DVT: Ambulation Charges/Coding Visit Charges Inpatient E&M: 76962 Subs Hosp L2
--- NOTE | 2024-02-22 14:47 | PCM.PN.REN ---
Subjective Subjective no new events Objective Data Objective Data Vital Signs: Vital Signs Temp Pulse Resp BP Pulse Ox O2 Del Method 98.1 F 84 18 122/74 H 98 Room Air 02/22/24 08:43 02/22/24 08:43 02/22/24 08:43 02/22/24 08:43 02/22/24 08:43 02/22/24 13:00 Oxygen Delivery Method Room Air Weight: 88.1 kg Body Mass Index (BMI) 35.5 Intake & Output: Intake and Output for Last 24 Hours 02/20/24 02/21/24 02/22/24 23:59 23:59 23:59 Intake Total 2778.33 / 2778.33 2153.3333 / 2153.3333 Output Total 1950 / 1950 2179 / 2179 Balance 828.33 / 828.33 -25.6667 / -25.6667 Lab / Micro Data 02/22/24 03:48 02/22/24 08:00 Labs: Laboratory Results - last 24 hr 02/21/24 15:50: Sodium 122 L 02/21/24 20:45: Sodium 121 L 02/22/24 00:08: Sodium 122 L 02/22/24 03:48: WBC 5.2, RBC 3.58 L, Hgb 11.7 L, Hct 33.8 L, MCV 94.4, MCH 32.7 H, MCHC 34.6, RDW Std Deviation 58.4 H, RDW Coeff of [place] 16.9 H, Plt Count 193, MPV 9.5, Immature Gran % (Auto) 0.800, Neut % (Auto) 70.0, Lymph % (Auto) 16.1 L, [place] % (Auto) 8.6, Eos % (Auto) 3.5, Baso % (Auto) 1.0, Absolute Neuts (auto) 3.7, Absolute Lymphs (auto) 0.84, Nucleated RBC % 0, Sodium 122 L, Potassium 3.7, Chloride 89 L, Carbon Dioxide 27.0, Anion Gap 6, BUN 7, Creatinine 0.60, Estim Creat Clear Calc 108.94, Est GFR (MDRD) Af Amer 133, Est GFR (MDRD) Non-Af 110, BUN/Creatinine Ratio 11.7, Glucose 89, Calcium 7.7 L 02/22/24 08:00: Sodium 124 L Physical Exam Narrative Alert awake oriented x 3 no obvious distress no pallor no icterus no JVD s1s2 no murmurs lungs clear abdomen soft no organomegaly no edema no cyanosis Assessment & Plan Assessment/Plan (1) Acute hyponatremia: PLAN: Baseline sodium was normal in November 2023 at 134. Came in with a sodium of 110. Essentially completely asymptomatic except for some nausea. Typically this happens in slow progressive hyponatremia and so this is likely of chronic hyponatremia. We will have to correct this very slowly. Sodium was 110 around midnight. Urine sodium less than 20, urine osmolality 600. These numbers or without diuretics which she stopped several days ago. labs are consistent with hypovolemic hyponatremia. multiple adjustments overnight Sodium improved by about 12 points in 48 hours which is appropriate rate of correction. Can check sodium values once later today and once tomorrow. As long as the sodium is close to 130, can be discharged home tomorrow. Discussed with family at bedside. Discussed with hospitalist about plan.
[2024-02-22 15:10] VITALS: BP 95/62; PULSE 69; RESP 18; TEMP 36; O2SAT 100
[2024-02-22] MEDS: Acetaminophen 325 MG Tablet 650 MG PO (15:15)
[2024-02-22 16:57] LABS: Sodium Level 123 mmol/L (136-145)
[2024-02-22] MEDS: Dicyclomine 10 MG Capsule 20 MG PO (17:08)
[2024-02-22] MEDS: Loperamide 2 MG Capsule PO ×2 (17:08→21:54)
[2024-02-22 21:43] VITALS: BP 101/62; PULSE 74; RESP 18; TEMP 36; O2SAT 97
[2024-02-22] MEDS: hydrOXYzine PAM 25 MG Capsule 50 MG PO (21:54)
[2024-02-22] MEDS: traZODone 50 MG Tablet PO (21:54)
[2024-02-23 02:51] VITALS: BP 119/91; PULSE 73; RESP 18; TEMP 35.8; O2SAT 100
[2024-02-23 04:08] VITALS: BMI 35.3
[2024-02-23] MEDS: Phenobarbital 32.4 MG Tablet 64.8 MG PO ×2 (05:03→10:53)
[2024-02-23] MEDS: Levothyroxine 150 MCG Tablet PO (05:03)
[2024-02-23 06:55] LABS: Absolute Lymphocyte Count 1.03 X10^3/uL (0.83-4.51); Absolute Neutrophil Count 3.7 X10^3/uL (2.0-7.7); Basophil# 0.07 X10^3/uL; Basophil% 1.2 % (0-1); Eosinophil# 0.34 X10^3/uL; Hematocrit 34.3 % (37-47); Hemoglobin 11.8 g/dL (12.0-15.0); Lymphocyte # 1.03 X10^3/ul (0.83-4.51); Lymphocyte % 18.2 % (19-41); Mean Corp Hgb Conc 34.4 g/dL (32-36); Mean Corpuscular Hgb 32.4 pg (27.0-32.0); Mean Corpuscular Volume 94.2 fL (81-99); Mean Platelet Vol. 9.3 fl (6.2-12.0); Monocyte# 0.47 X10^3/uL; Monocyte% 8.3 % (0-10); NRBC Flagged by Analyzer 0 % (0-5); Neutrophil # 3.68 X10^3/uL (2.7-7.7); Neutrophil % 65.2 % (47-70); Platelet Count 195 K/mm3 (150-450); RBC Distribution Width CV 17.2 % (11.6-14.6); RBC Distribution Width SD 59.6 fl (35.1-43.9); Red Blood Count 3.64 M/mm3 (4.2-5.4); White Blood Count 5.7 K/mm3 (4.4-11.0)
[2024-02-23 07:11] VITALS: O2SAT 96
[2024-02-23 08:03] LABS: Anion Gap 5 (5-15); BUN 4 mg/dL (7-18); BUN/Creat Ratio 7.3 RATIO (10-20); Chloride 96 mmol/L (98-107); Creatinine, Serum 0.55 mg/dL (0.55-1.02); EST Glomerular Filtration Rate 122 mL/min (>60); Est Glom Filt Rate - Afr Amer 147 mL/min (>60); Estimated Creatinine Clearance 118.77 ml/min; Glucose 83 mg/dL (74-106); Sodium Level 128 mmol/L (136-145)
[2024-02-23 09:00] VITALS: BP 125/80; PULSE 80; RESP 18; TEMP 36.4; O2SAT 99
--- NOTE | 2024-02-23 09:00 | DCINST_ITS ---
Discharge Instructions Diet Discharge Diet: Low fat / Low cholesterol Activity Discharge Activity: Return to Normal Activity Dressing / Incision Call your doctor if you observe: Fever of 101 or Higher, Shortness of breath, Dizziness, Fainting spells, Swelling in the ankles, Chest pain and Increased palpitations (irregular heartbeat) Follow Up Care Test Results: Test results from this visit will be discussed in further detail at your follow- up appointment, if applicable. Discharge Plan Admission Admit Date/Time: 02/20/24 02:28 Attending Provider: Ash Oneil Primary Care Provider: Magalie Morris NP Consulting Providers: Corby Brooks; Michael Banuelos; Chun Khan Discharge Orders/Prescriptions Prescriptions: No Action trazodone 50 mg tablet 25 - 50 mg PO QHS PRN (Reason: Sleep) omeprazole 40 mg capsule,delayed release(DR/EC) 40 mg PO DAILY levothyroxine 150 mcg tablet 150 mcg PO DAILY lisinopril-hydrochlorothiazide 20-25 mg tablet 1 tab PO DAILY Referrals / Follow Up: Magalie Morris NP, MERCHAND[facility] COORDINATOR-C [Primary Care Provider] -
--- NOTE | 2024-02-23 09:00 | PCM.DC ---
Discharge Instructions Diet Discharge Diet: Low fat / Low cholesterol Activity Discharge Activity: Return to Normal Activity Dressing / Incision Call your doctor if you observe: Fever of 101 or Higher, Shortness of breath, Dizziness, Fainting spells, Swelling in the ankles, Chest pain and Increased palpitations (irregular heartbeat) Follow Up Care Test Results: Test results from this visit will be discussed in further detail at your follow-up appointment, if applicable. Discharge Plan Admission Admit Date/Time: 02/20/24 02:28 Attending Provider: Ash Oneil Primary Care Provider: Magalie Morris NP Consulting Providers: Corby Brooks; Michael Banuelos; Chun Khan Instructions Patient Instructions: Addiction: Your Treatment Options, Hyponatremia Dc, ED Alcohol Abuse Additional Instructions / Restrictions: Follow-up with your PCP in 3 to 5 days to monitor your blood pressure. If it is necessary to reinstitute antihypertensive medication, would recommend Norvasc or beta-mandi given your significant issues with hyponatremia in the setting of alcohol abuse. Discharge Orders/Prescriptions Prescriptions: Continued trazodone 50 mg tablet 25 - 50 mg PO QHS PRN (Reason: Sleep) omeprazole 40 mg capsule,delayed release(DR/EC) 40 mg PO DAILY levothyroxine 150 mcg tablet 150 mcg PO DAILY Discontinued lisinopril-hydrochlorothiazide 20-25 mg tablet 1 tab PO DAILY Referrals / Follow Up: Magalie Morris NP, WATCH ASSEMBLER-C [Primary Care Provider] - Within 1 Week Disposition Disposition (needs filled in before D/C Order can be placed): Home, Self Care
--- NOTE | 2024-02-23 09:06 | CASEMGMT ---
Patient declined any resources for ETOH treatment. Viviana Merlos MSW KOLE
[2024-02-23] MEDS: Folic Acid 1 MG Tablet PO (09:22)
[2024-02-23] MEDS: Pantoprazole Sodium 40 MG Tablet PO (09:22)
[2024-02-23] MEDS: Magnesium Chloride 64 MG Delay Rel.Tablet 128 MG PO (09:22)
[2024-02-23] MEDS: Enoxaparin 40 MG/0.4 ML Syringe SC (09:22)
[2024-02-23] MEDS: Thiamine Hydrochloride 100 MG Tablet PO (09:22)
[2024-02-23] MEDS: Potassium Chloride Oral Tablet 20 MEQ PO (09:22)
[2024-02-23] MEDS: Na Biphos/Potassium Phosphate PACKET 1 PACKET PO (09:22)
[2024-02-23 09:30] VITALS: BP 128/50; PULSE 80; RESP 18; TEMP 36.4; O2SAT 99
--- NOTE | 2024-02-23 09:37 | PHA.DC.MR.R ---
Pharmacy [place] Med Reconciliation Pharmacy Service has performed discharge medication reconciliation for this patient. The patient's discharge medication list was reviewed for discrepancies and discrepancies were resolved. Medications at Discharge Home Medications omeprazole 40 mg capsule,delayed release 40 mg PO DAILY GERD 12/02/20 trazodone 50 mg tablet 25 - 50 mg PO QHS PRN Sleep 12/02/20 levothyroxine 150 mcg tablet 150 mcg PO DAILY thyroid 02/20/24
--- NOTE | 2024-02-23 10:00 | CASEMGMT ---
Patient has order for discharge. RN CM in to discuss needs at discharge. Patient denies needs or help at discharge. Patient had no further questions or concerns.
--- NOTE | 2024-02-23 10:29 | PCM.DC.SUM ---
Providers Date of Admission: 02/20/24 Primary Care Physician: AUGUSTINA Funes Consultations 02/20/24 03:31 Consult: Nephrology Routine Consulting Provider: Chun Khan Reason for Consult: severe hyponatremia EMERGENT Consult: No MD Notified: Yes Date Notified: 02/20/24 Time Notified: 06:49 Method of Notification: Answering Service Reason For Visit: SEVERE HYPONATREMIA Diagnosis Discharge Diagnosis (1) Acute hyponatremia: Status: Acute Code(s): E87.1 - Hypo-osmolality and hyponatremia Medications at Discharge Home Medications omeprazole 40 mg capsule,delayed release 40 mg PO DAILY GERD 12/02/20 trazodone 50 mg tablet 25 - 50 mg PO QHS PRN Sleep 12/02/20 levothyroxine 150 mcg tablet 150 mcg PO DAILY thyroid 02/20/24 Hospital Course Operations None Procedures None Summary of Care Provided Minutes Spent on Discharge: 37 Hospital Course: Per HPI: ORA ADAMS, is a 53 F who presented to [facility] ED on 02/20/2024 with 1 to 2-day history of nausea/vomiting and poor p.o. intake. On arrival to the ED, patient was found to have a sodium level of 110. Per ED physician, patient was mentating appropriately and denied any symptoms of mental fogginess or confusion. Chloride level notably was very low at 70. Given the very low sodium, hospitalist was contacted for admission. I saw patient at the bedside in the ED. She was sitting up comfortably in bed, conversing normally, in no acute distress. She appeared mildly fatigued and had dry mucous membranes but otherwise appeared comfortable. She denied any acute pain or discomfort. Denied any other acute concerns at this time. She notably did receive doses of IV Ativan 1 mg, IV Zofran and 1 L of normal saline before I saw her. When she arrived to the ED, she was hypertensive to the 150s over 90s and borderline tachycardic with heart rate in the 90s, otherwise hemodynamically stable. Labs notable for sodium 110, potassium 3.1, chloride 70, bicarb 24, BUN 7, creatinine 0.67, magnesium 1.6, total bilirubin 2.6, direct bili 0.8, AST 123, ALT 75, alk phos 79, TSH 8.07. No imaging was done. Patient was hospitalized here about 3 years ago for hyponatremia and presented at that time with similar symptoms. However, her sodium level at worst and was only 125. Hyponatremia then with suspected multifactorial from home hydrochlorothiazide, poor p.o. intake, GI losses and possibly some degree of beer potomania. Patient states that she is still on hydrochlorothiazide at this time, though she did self discontinue this a few days ago. Her only other home medications right now are Synthroid and lisinopril. She has not been able to keep these 2 medications down the past few days but otherwise reports compliance. Patient does have history of alcohol abuse. States that she typically drinks 2 glasses of vodka every evening. She notably reported the same amount of alcohol intake during the 2020 admission. States that she has been trying to cut back on her alcohol use over the past few weeks. Since she has developed significant nausea with vomiting in the past few days, she has not had any alcohol intake. She has never been hospitalized for alcohol withdrawal but states she will sometimes have symptoms of withdrawal such as shakiness and heart racing. Denies history of withdrawal seizures. Alcohol level was 6 in ED today. Hospital Course: 1. Acute alcohol withdrawal with severe hypovolemic hyponatremia as well as hypokalemia, hypophosphatemia and hypomagnesemia/elevated LFTs ? Continue with the alcohol withdrawal protocol ? Appreciate nephrology's assistance with sodium correction ? Will monitor and replace electrolytes as necessary ? LFTs are elevated secondary to alcohol abuse, follow-up as an outpatient ?Her sodium today is corrected to 128, and discussed with nephrology this is most likely attributable to her alcohol abuse. She did refuse any information from social work about outpatient drug and alcohol rehab. Will discontinue her lisinopril and hydrochlorothiazide combination blood pressure medication as this can cause hyponatremia. She does need to follow-up with her PCP as an outpatient to make sure that her blood pressures are stable, if necessary would add her onto Norvasc and/or beta-mandi. I discussed with her the plan for discharge today she expressed understanding of the risk benefits going home and would like to go home today. 2. Essential HTN ? Hold HCTZ given the hyponatremia ? Hold lisinopril ? Will monitor make adjustments as necessary 3. Hypothyroidism ? Continue with Synthroid ? TSH is slightly elevated at 8.07, will have her follow-up as an outpatient for recheck now that she will be consistently taking her Synthroid ? Would recommend continuation of her Synthroid at home and outpatient follow-up if her TSH does remain elevated would proceed with further workup with a T3/T4, at this time does appear that there have been some inconsistencies in her medication compliance. 4. GERD ? Stable ?Continue with PPI Physical Exam Narrative General: Alert, Oriented x3, Cooperative, No apparent distress HEENT: Atraumatic, PERRLA, EOMI, Normocephalic Oral: Moist Mucosa Neck: Supple, No JVD Lungs: Diminished, Normal air movement, No rhonchi, No wheeze, No rales Cardiovascular: Regular rate, Regular Rhythm, Normal S1, Normal S2, No murmurs Abdomen: Soft, Non Tender, Non-Distended, No Hepato-splenomegaly Extremities: No edema, Capillary Refill Less than 3 Seconds Skin: No rashes, No breakdown Musculoskeletal: No Tenderness to Palpation of Joints or Extremities Neurological: No focal neurological deficits, Motor Exam 5/5 strength throughout, Sensory exam intact to light touch and pain Psych/Mental Status: Flat Weight / BMI Weight Weight: 193 lb 1.999 oz Body Mass Index (BMI) 35.3 ABG / Lab / Microbiology Data 02/23/24 06:35 02/23/24 06:35 Laboratory: Laboratory Results - last 24 hr 02/22/24 16:15: Sodium 123 L 02/23/24 06:35: WBC 5.7, RBC 3.64 L, Hgb 11.8 L, Hct 34.3 L, MCV 94.2, MCH 32.4 H, MCHC 34.4, RDW Std Deviation 59.6 H, RDW Coeff of [place] 17.2 H, Plt Count 195, MPV 9.3, Immature Gran % (Auto) 1.100 H, Neut % (Auto) 65.2, Lymph % (Auto) 18.2 L, [place] % (Auto) 8.3, Eos % (Auto) 6.0 H, Baso % (Auto) 1.2 H, Absolute Neuts (auto) 3.7, Absolute Lymphs (auto) 1.03, Nucleated RBC % 0, Sodium 128 L, Potassium 4.0, Chloride 96 L, Carbon Dioxide 27.0, Anion Gap 5, BUN 4 L, Creatinine 0.55, Estim Creat Clear Calc 118.77, Est GFR (MDRD) Af Amer 147, Est GFR (MDRD) Non-Af 122, BUN/Creatinine Ratio 7.3 L, Glucose 83, Calcium 8.0 L D/C Instructions Discharge Diet: Low fat / Low cholesterol Call your doctor if you observe: Fever of 101 or Higher, Shortness of breath, Dizziness, Fainting spells, Swelling in the ankles, Chest pain and Increased palpitations (irregular heartbeat) Meaningful Use Info Meaningful Use Meaningful Use Diagnoses (Choose all that apply): None applicable Ischemic Stroke Statin Dosing Therapy Reference: STATIN DOSE THERAPY REFERENCE: * Patients > 75 years receive moderate or high dose statin therapy. * Patients 75 years or YOUNGER should receive HIGH intensity statin dose unless contraindicated. You will be required to document reason for non-treatment if statin daily dose does not meet guidelines. HIGH DOSE STATIN THERAPY DAILY Atorvastatin > than or = to 40 mg Rosuvastatin > than or = to 20 mg Amlodipine + Atorvastatin > than or = to 2.5/40 mg Ezetimibe + Simvastatin 10/80 mg Simvastatin 80mg Discharge Plan Admission Admit Date/Time: 02/20/24 02:28 Attending Provider: Ash Oneil Primary Care Provider: Magalie Morris NP Consulting Providers: Corby Brooks; Michael Banuelos; Chun Khan Instructions Patient Instructions: Addiction: Your Treatment Options, Hyponatremia Dc, ED Alcohol Abuse Additional Instructions / Restrictions: Follow-up with your PCP in 3 to 5 days to monitor your blood pressure. If it is necessary to reinstitute antihypertensive medication, would recommend Norvasc or beta-mandi given your significant issues with hyponatremia in the setting of alcohol abuse. Discharge Orders/Prescriptions Prescriptions: Continued trazodone 50 mg tablet 25 - 50 mg PO QHS PRN (Reason: Sleep) omeprazole 40 mg capsule,delayed release(DR/EC) 40 mg PO DAILY levothyroxine 150 mcg tablet 150 mcg PO DAILY Discontinued lisinopril-hydrochlorothiazide 20-25 mg tablet 1 tab PO DAILY Referrals / Follow Up: Magalie Morris NP, CENTRAL STERILE TECHNICIAN-C [Primary Care Provider] - Within 1 Week Disposition Disposition (needs filled in before D/C Order can be placed): Home, Self Care Charges/Coding Visit Charges Inpatient E&M: 12659 Disch Hosp >30min
--- NOTE | 2024-02-23 13:19 | PCM.PN.REN ---
Subjective Subjective no new complaints Objective Data Objective Data Vital Signs: Vital Signs Temp Pulse Resp BP Pulse Ox O2 Del Method 97.5 F L 80 18 128/50 H 99 Room Air 02/23/24 09:30 02/23/24 09:30 02/23/24 09:30 02/23/24 09:30 02/23/24 09:30 02/23/24 09:30 Oxygen Delivery Method Room Air Weight: 87.6 kg Body Mass Index (BMI) 35.3 Intake & Output: Intake and Output for Last 24 Hours 02/21/24 02/22/24 02/23/24 23:59 23:59 23:59 Intake Total 2153.3333 / 2153.3333 690 / 690 560 / 560 Output Total 2179 / 2179 Balance -25.6667 / -25.6667 690 / 690 560 / 560 Lab / Micro Data 02/23/24 06:35 02/23/24 06:35 Labs: Laboratory Results - last 24 hr 02/22/24 16:15: Sodium 123 L 02/23/24 06:35: WBC 5.7, RBC 3.64 L, Hgb 11.8 L, Hct 34.3 L, MCV 94.2, MCH 32.4 H, MCHC 34.4, RDW Std Deviation 59.6 H, RDW Coeff of [place] 17.2 H, Plt Count 195, MPV 9.3, Immature Gran % (Auto) 1.100 H, Neut % (Auto) 65.2, Lymph % (Auto) 18.2 L, [place] % (Auto) 8.3, Eos % (Auto) 6.0 H, Baso % (Auto) 1.2 H, Absolute Neuts (auto) 3.7, Absolute Lymphs (auto) 1.03, Nucleated RBC % 0, Sodium 128 L, Potassium 4.0, Chloride 96 L, Carbon Dioxide 27.0, Anion Gap 5, BUN 4 L, Creatinine 0.55, Estim Creat Clear Calc 118.77, Est GFR (MDRD) Af Amer 147, Est GFR (MDRD) Non-Af 122, BUN/Creatinine Ratio 7.3 L, Glucose 83, Calcium 8.0 L Physical Exam Narrative Alert awake oriented x 3 no obvious distress no pallor no icterus no JVD s1s2 no murmurs lungs clear abdomen soft no organomegaly no edema no cyanosis Assessment & Plan Assessment/Plan (1) Acute hyponatremia: PLAN: Baseline sodium was normal in November 2023 at 134. Came in with a sodium of 110. Essentially completely asymptomatic except for some nausea. Typically this happens in slow progressive hyponatremia and so this is likely of chronic hyponatremia. We will have to correct this very slowly. Sodium was 110 around midnight. Urine sodium less than 20, urine osmolality 600. These numbers or without diuretics which she stopped several days ago. labs are consistent with hypovolemic hyponatremia. sodium 128 remains asymptomatic ok to dc fluid restriction 1.5 L a day BMP next week
== END 2024-02-23 14:35 | disposition home or self-care (01) | DRG 641 ==
LOC: ED 02-20 02:05 → ICU 02-20 07:15 → PCU 02-23 09:14 → ICU 02-23 14:42
PROVIDERS: Internal Medicine; Internal Medicine Nephrology; Admitting Provider Hospitalist; Emergency Provider Emergency Medicine; PCP Internal Medicine; Visit Provider Family Medicine
DX: E87.1 Hypo-osmolality and hyponatremia (principal); F10.230 Alcohol dependence with withdrawal, uncomplicated; E83.39 Other disorders of phosphorus metabolism; E03.9 Hypothyroidism, unspecified; I10 Essential (primary) hypertension; E66.9 Obesity, unspecified; E87.6 Hypokalemia; K21.9 Gastro-esophageal reflux disease without esophagitis; E86.1 Hypovolemia; E83.42 Hypomagnesemia; Y90.0 Blood alcohol level of less than 20 mg/100 ml; Z68.36 Body mass index [BMI] 36.0-36.9, adult; Z79.899 Other long term (current) drug therapy; Z87.891 Personal history of nicotine dependence
CPT/HCPCS: 36415; 80048; 80076; 82077; 83690; 83735; 83930; 83935; 84100; 84295; 84300; 84443; 85025; 85027; 85610; 94762; 99283; J7030; J7040; A4216; J2405; J2597

== ENCOUNTER 2024-05-28 06:54 | Emergency (ER) | payer OTHER, SELFPAY ==
[2024-05-28 06:55] VITALS: BP 155/94; PULSE 81; RESP 18; TEMP 37; O2SAT 93; BMI 37.0
--- NOTE | 2024-05-28 07:08 | EKG12_ITS ---
Test Reason : abd pain Blood Pressure : */* mmHG Vent. Rate : 80 BPM Atrial Rate : 80 BPM P-R Int : 156 ms QRS Dur : 80 ms QT Int : 458 ms P-R-T Axes : 44 0 31 degrees QTcB Int : 528 ms Normal sinus rhythm Minimal voltage criteria for LVH, may be normal variant ( R in aVL ) ST & T wave abnormality, consider anterolateral ischemia Prolonged QT Abnormal ECG baseline artifact Confirmed by Christopher Ferrari ([id number]), senior editor CARMINE NUNEZ ([id number]) on 05/29/2024 9:20:09 AM Referred By: Confirmed By: Christopher Ferrari
--- NOTE | 2024-05-28 07:09 | EDS_ITS ---
HPI HPI - GI History of Present Illness Chief Complaint: Abd Pain Informant: patient and EMS Narrative Narrative: 53-year-old female presenting to the emergency room with abdominal chest pressure. Patient states that midday yesterday she began to experience a epigastric pressure that radiated up into her chest. She notes associated nausea. No dyspnea no back pain. She feels abdominal bloating. She notes that the upper abdomen is sore. She did not eat dinner last night. She states her mouth is very dry. Patient states that she is a drinker. She states she has been cutting back and has a few glasses of wine at night. Patient notes prior hysterectomy and mastectomy. She denies history of biliary disease or pancreatitis. She does take omeprazole. She notes normal bowel movement yesterday. Normal urination. She denies fever rashes or URI symptoms. She denies any urinary symptoms. Patient was admitted earlier this year with hyponatremia (110). Patient states it is very hard to talk as her mouth is dry PFSH PFSH Medical History History of breast cancer HTN (hypertension) Hypothyroid Home Medications ?Medication ?Instructions ?Recorded ?Last Taken ?Type omeprazole 40 mg capsule,delayed 40 mg PO DAILY GERD 12/02/20 05/27/24 History release levothyroxine 150 mcg tablet 150 mcg PO DAILY thyroid 02/20/24 05/27/24 History hydrochlorothiazide 12.5 mg capsule 12.5 mg PO DAILY 05/28/24 05/27/24 History lorazepam 0.5 mg tablet (Ativan) 0.5 mg PO DAILY PRN sleep 05/28/24 05/28/24 History ondansetron 4 mg disintegrating 4 mg PO Q6H PRN PRN Nausea #15 tabs 05/28/24 Unknown Rx tablet oxycodone 5 mg tablet 5 mg PO Q6H PRN pain 3 days #12 05/28/24 Unknown Rx tabs zolpidem 5 mg tablet 5 mg PO QHS PRN 05/28/24 Unknown History Allergy/AdvReac Type Severity Reaction Status Date / Time Penicillins Allergy Hives Verified 05/28/24 06:55 Sulfa (Sulfonamide Allergy Hives Verified 05/28/24 06:55 Antibiotics) vancomycin Allergy Hives Verified 05/28/24 06:55 Surgical History H/O mastectomy H/O: hysterectomy Social History Smoking Status: Former smoker ROS ROS ED Constitutional Constitutional ED: Denies chills, fever(s) or weight loss Eyes Eyes: Denies change in vision or diplopia ENT ENT ED: Denies ear pain, rhinorrhea or sore throat Cardiovascular Cardiovascular: Reports chest pain; Denies orthopnea, palpitations or racing heartbeat Respiratory/Chest Respiratory/Chest: Denies cough, dyspnea or orthopnea Gastrointestinal Gastrointestinal: Reports abdominal pain, nausea and other Details: Abdominal bloating ; Denies constipation, diarrhea or vomiting Genitourinary Genitourinary ED: Denies dysuria, hematuria or urinary frequency Musculoskeletal Musculoskeletal: Denies arthralgias, back pain or myalgias Integumentary Denies abscess or rash Neurologic Neurologic: Denies headache(s), paresthesias or weakness Psychiatric Psychiatric: Denies anxiety, depression, suicidal ideation or suicidal thoughts Endocrine Endocrinology: Denies polydipsia, polyphagia or polyuria Allergic/Immunologic Allergic/Immunologic ED: Denies mouth swelling, tongue swelling or urticaria EXAM Physical Exam Const Vital Signs: 05/28/24 06:55 05/28/24 08:54 Temperature 98.6 F Temperature Source Oral Pulse Rate 81 64 Respiratory Rate 18 18 Blood Pressure 155/94 H 141/78 H Blood Pressure Mean 114 99 Pulse Ox 93 98 Oxygen Delivery Method Room Air Room Air Positive well nourished, well developed and obese General Appearance ED: well developed and NAD Nutritional Appearance: obese HEENT Reports normocephalic, head/scalp atraumatic and moist mucous membranes Eyes PERRL and EOMs intact bilaterally Neck no lymphadenopathy, supple and no JVD Resp normal respiratory effort and clear to auscultation bilaterally Cardio regular rate, regular rhythm and no murmurs GI Auscultation: normoactive bowel sounds Palpation: soft and tender epigastric; Negative for guarding, rigid, mass or rebound tenderness present Back/Spine no CVA tenderness and normal ROM Extremity normal to inspection General Extremety ED: Negative for edema General Extremity: Negative for edema Neuro oriented x3 and CN's II-XII intact bilaterally Sensorium / Orientation: alert Motor Exam: strength 5/5 throughout Psych mental status grossly normal Mood & Affect: Negative for depressed or tearful Skin no rashes or lesions noted and no wounds MDM MDM MDM Narrative Medical decision making narrative: Differential diagnosis includes gastritis peptic ulcer disease pancreatitis gallbladder disease liver dysfunction colitis acute coronary syndrome White count slightly elevated 13.3 hemoglobin 11.9 platelet count is 494. BMP shows a sodium of 134 potassium 3.1 creatinine 0.66 BUN of 4 glucose 111 total bilirubin 1.30 with a direct bilirubin of 0.38 AST of 99 ALT of 55 lipase elevated 601 urinalysis with no overt infection alcohol level is 80. CT abdomen pelvis demonstrates inflammatory changes around the pancreas. Please see radio logist read for full details. I spoke with the patient and we discussed the above findings. The diagnosis is acute pancreatitis most likely due to alcohol use. The patient states that she would prefer to be treated at home and try to avoid admission. She understands that that she may worsen and necessitate a admission. I will write for pain and nausea medication. We talked about bowel rest. History & Record Review Discussion w/independent historian: Patient Additional record(s) reviewed:: Prior inpatient record, Prior ED visit and Prior labs Lab Data Attestation: I reviewed the patient's lab results. Labs: Laboratory Results - last 24 hr 05/28/24 05/28/24 07:17 07:25 WBC 13.3 H RBC 3.22 L Hgb 11.9 L Hct 34.1 L MCV 105.9 H MCH 37.0 H MCHC 34.9 RDW Std Deviation 81.4 H RDW Coeff of Beverly 21.1 H Plt Count 494 H MPV 8.6 Immature Gran % (Auto) 0.700 Neut % (Auto) 78.5 H Lymph % (Auto) 14.0 L [place] % (Auto) 5.5 Eos % (Auto) 0.8 Baso % (Auto) 0.5 Absolute Neuts (auto) 10.4 H Absolute Lymphs (auto) 1.87 Nucleated RBC % 0 Anisocytosis 1+ Sodium 134 L Potassium 3.1 L Chloride 99 Carbon Dioxide 27.0 Anion Gap 9 BUN 4 L Creatinine 0.66 Estim Creat Clear Calc 101.65 Est GFR (MDRD) Af Amer 120 Est GFR (MDRD) Non-Af 99 BUN/Creatinine Ratio 6.1 L Glucose 111 H Calcium 8.4 L Magnesium 2.0 Total Bilirubin 1.30 H Direct Bilirubin 0.38 H AST 99 H ALT 55 Alkaline Phosphatase 91 Troponin I High Sens 8 Total Protein 6.2 L Albumin 3.1 L Globulin 3.1 Lipase 601 H Urine Color Yellow Urine Clarity Clear Urine pH 6.5 Ur Specific [place] 1.015 Urine Protein 30 H Urine Glucose (UA) Normal Urine Ketones Negative Urine Occult Blood Negative Urine Nitrite Negative Urine Bilirubin Negative Urine Urobilinogen 4 H Ur Leukocyte Esterase 100 H Urine RBC 0 SEEN Urine WBC 5-10 SEEN Ur Squamous Epith Cells 0-5 SEEN Urine Bacteria 0 SEEN Urine Mucus 0 SEEN Ethyl Alcohol 80.0 Radiography Diagnostic Testing: Clinical Impression(s) from Imaging Studies Abdomen/Pelvis CT 05/28/24 07:47 IMPRESSION: 1. Findings consistent with acute pancreatitis. No focal pancreatic lesion, pseudocyst, or abscess. 2. Fatty liver. Electronically Signed: Bjorn Banda DO at 8:52 EST , EKG Initial EKG: Attestation: I personally reviewed and interpreted this EKG as follows: Comments: Normal sinus rhythm ventricular rate of 80 bpm Discharge Plan Triage Chief Complaint: Abd Pain ED Provider: Peter Hernandez Dx/Rx/DC Orders Clinical Impression: Alcohol abuse, Pancreatitis, Abdominal pain, acute Instructions: ED Pancreatitis, ED Alcohol Abuse Prescriptions: New ondansetron 4 mg tablet,disintegrating 4 mg PO Q6H PRN PRN (Reason: Nausea) Qty: 15 0RF oxycodone 5 mg tablet 5 mg PO Q6H PRN (Reason: pain) 3 Days Qty: 12 0RF No Action omeprazole 40 mg capsule,delayed release(DR/EC) 40 mg PO DAILY levothyroxine 150 mcg tablet 150 mcg PO DAILY hydrochlorothiazide 12.5 mg capsule 12.5 mg PO DAILY zolpidem 5 mg tablet 5 mg PO QHS PRN lorazepam [Ativan] 0.5 mg tablet 0.5 mg PO DAILY PRN (Reason: sleep) Primary Care Provider: Magalie Morris NP Referrals: Magalie Morris NP, ELECTROCARDIOGRAPHIC TECHNICIAN-C [Primary Care Provider] - 2 Days Activity Restrictions/Additional Instructions: One of the treatments for pancreatitis is abstinence from alcohol as well as bowel rest. I would stick with water to try to keep your urine a light yellow to clear. I would recommend you see your primary care doctor in 2 days. As we discussed your condition may worsen and require hospitalization. If you feel you are not doing well at home please return to emergency for repeat examination. Print Language: Romanian Disposition Disposition: Home, Self Care
[2024-05-28] MEDS: Morphine 4 MG/ML Syringe IV (07:16)
[2024-05-28] MEDS: Ondansetron 4 MG/2 ML Vial IV (07:16)
[2024-05-28 07:23] LABS: Absolute Lymphocyte Count 1.87 X10^3/uL (0.83-4.51); Absolute Neutrophil Count 10.4 X10^3/uL (2.0-7.7); Basophil# 0.07 X10^3/uL; Basophil% 0.5 % (0-1); Eosinophil# 0.11 X10^3/uL; Eosinophils% 0.8 % (0-5); Hematocrit 34.1 % (37-47); Hemoglobin 11.9 g/dL (12.0-15.0); Lymphocyte # 1.87 X10^3/ul (0.83-4.51); Mean Corp Hgb Conc 34.9 g/dL (32-36); Mean Corpuscular Volume 105.9 fL (81-99); Mean Platelet Vol. 8.6 fl (6.2-12.0); Monocyte# 0.73 X10^3/uL; Monocyte% 5.5 % (0-10); NRBC Flagged by Analyzer 0 % (0-5); Neutrophil # 10.44 X10^3/uL (2.7-7.7); Neutrophil % 78.5 % (47-70); POSITIVE MORPHOLOGY YES; Platelet Count 494 K/mm3 (150-450); RBC Distribution Width CV 21.1 % (11.6-14.6); RBC Distribution Width SD 81.4 fl (35.1-43.9); Red Blood Count 3.22 M/mm3 (4.2-5.4); White Blood Count 13.3 K/mm3 (4.4-11.0)
[2024-05-28 07:27] LABS: Differential Indicated SCAN CRITERIA MET
[2024-05-28 07:33] LABS: Bacteria 0 SEEN /hpf (None Seen); Mucous, Urine 0 SEEN /hpf (<or=2+); Red Blood Cells-Urine 0 SEEN /hpf (0-5)
[2024-05-28 07:39] LABS: Color, Urine Yellow (Yellow); Glucose, Dipstick Normal (Normal); Ketone-Dipstick Negative (Negative); Leukocyte Esterase-Dipstick 100 /ul (Negative); Nitrite-Dipstick Negative (Negative); Occult Blood-Urine Negative /ul (Negative); Protein-Dipstick 30 mg/dl (Negative); Specific Gravity, Urine 1.015 (1.002-1.030); Urine Bilirubin Dipstick Negative (Negative); Urine Clarity Clear (Clear); Urine Urobilinogen 4 mg/dl (Normal); Urine pH 6.5 (5.0 - 8.0)
[2024-05-28 07:43] LABS: Squamous Epithelial Cells - UA 0-5 SEEN /hpf (5-10); White Blood Cells 5-10 SEEN /hpf (0-5)
[2024-05-28 07:44] LABS: AST(SGOT) 99 U/L (15-37); Alanine Aminotransfer ALT/SGPT 55 U/L (13-56); Albumin, Serum 3.1 g/dL (3.2-5.0); Alkaline Phosphatase 91 U/L (45-117); Anion Gap 9 (5-15); BUN 4 mg/dL (7-18); BUN/Creat Ratio 6.1 RATIO (10-20); Bilirubin, Direct 0.38 mg/dL (0.00-0.30); Calcium,Total 8.4 mg/dL (8.5-10.1); Chloride 99 mmol/L (98-107); Creatinine, Serum 0.66 mg/dL (0.55-1.02); EST Glomerular Filtration Rate 99 mL/min (>60); Est Glom Filt Rate - Afr Amer 120 mL/min (>60); Estimated Creatinine Clearance 101.65 ml/min; Globulin 3.1 g/dL (2.2-4.2); Glucose 111 mg/dL (74-106); Lipase 601 U/L (13-75); Potassium 3.1 mmol/L (3.5-5.1); Protein, Total 6.2 g/dL (6.4-8.2); Sodium Level 134 mmol/L (136-145); Troponin-I HS 8 pg/mL (3.0-54.0)
--- NOTE | 2024-05-28 07:47 | CT_ITS ---
ACR Level 3 findings have been noted. An addendum which confirms receipt of the report will follow. EXAM: CT ABDOMEN AND PELVIS WITH INTRAVENOUS CONTRAST CLINICAL INDICATION: pancreatitis TECHNIQUE: Helically acquired images were obtained of the abdomen and pelvis with intravenous contrast. This CT exam was performed using one or more of the following dose reduction techniques: automated exposure control, adjustment of the mA and/or kV according to patient size, and/or use of iterative reconstruction technique. CONTRAST: IV 100mL [id number] COMPARISON: Ultrasound, 12/04/2020. FINDINGS: LOWER THORAX: No significant abnormality. Lung bases are clear. No cardiomegaly. No significant pericardial effusion. ABDOMEN: LIVER: Low-attenuation throughout the liver consistent with fatty infiltration. No definite focal hepatic abnormality. GALLBLADDER AND BILE DUCTS: No significant abnormality. No calcified gallstones. No gallbladder distention or wall edema. No intra- or extrahepatic biliary ductal dilation. PANCREAS: No intrinsic pancreas lesion is present. No pancreatic ductal dilatation. There is diffuse peripancreatic inflammation and tracking fluid without peripancreatic abscess or pseudocyst. SPLEEN: No significant abnormality. Normal size without focal cystic or solid mass. ADRENALS: No significant abnormality. No nodules. KIDNEYS AND URETERS: No significant abnormality. Normal renal size and position. No hydronephrosis. STOMACH AND BOWEL: No significant abnormality. No stomach or bowel distention. No focal inflammatory change. PELVIS: APPENDIX: No evidence of acute appendicitis. BLADDER: No significant abnormality. REPRODUCTIVE: Normal as visualized. No mass. ABDOMEN and PELVIS: INTRAPERITONEAL SPACE: Diffuse edema in the upper mesentery. No free air. RETROPERITONEAL SPACE: Edema and minimal tracking fluid in the left side of the retroperitoneum. BONES/JOINTS: Degenerative changes in the spine. No suspicious lytic or blastic abnormality. SOFT TISSUES: Bilateral mammoplasty implants are present. Fat-containing right inguinal hernia and fat-containing umbilical hernia. VASCULATURE: Atherosclerosis. Abdominal aorta is non-dilated. LYMPH NODES: No significant abnormality. No enlarged lymph nodes. CT/Abdomen/Pelvis W IV Cont ONLY IMPRESSION: 1. Findings consistent with acute pancreatitis. No focal pancreatic lesion, pseudocyst, or abscess. 2. Fatty liver. Electronically Signed: Bjorn Banda DO at 8:52 EST ,
[2024-05-28 08:41] LABS: Anisocytosis 1+
[2024-05-28 08:54] VITALS: BP 141/78; PULSE 64; RESP 18; O2SAT 98
[2024-05-28] MEDS: HYDROmorphone 0.5 MG/0.5 ML SYRINGE IV (09:25)
[2024-05-28 09:32] VITALS: BP 179/105; PULSE 85; RESP 16; TEMP 36.5; O2SAT 97
== END 2024-05-28 09:59 | disposition home or self-care (01) ==
PROVIDERS: Emergency Provider Emergency Medicine; PCP Internal Medicine; Visit Provider Emergency Medicine
DX: K85.90 Acute pancreatitis without necrosis or infection, unspecified (principal); I10 Essential (primary) hypertension; Z87.891 Personal history of nicotine dependence; Z90.710 Acquired absence of both cervix and uterus; F10.10 Alcohol abuse, uncomplicated; R10.13 Epigastric pain; Z90.10 Acquired absence of unspecified breast and nipple; Z85.3 Personal history of malignant neoplasm of breast; E03.9 Hypothyroidism, unspecified; Z79.899 Other long term (current) drug therapy; Z79.890 Hormone replacement therapy
CPT/HCPCS: 74177; 80048; 80076; 81001; 82077; 83690; 83735; 84484; 85025; 93005; 96374; 96375; 99285; Q9967; A4216; J2405

== ENCOUNTER 2024-07-24 14:05 | Inpatient (IN) | payer OTHER, SELFPAY ==
[2024-07-24] VITALS (10 sets, daily range): BP systolic 124–147; BP diastolic 87–91; PULSE 68–89; RESP 13–26; TEMP 36.6–37.2; O2SAT 96–100; BMI 41.8; BMI 35.9
[2024-07-24 15:28] LABS: Absolute Lymphocyte Count 2.27 X10^3/uL (0.83-4.51); Absolute Neutrophil Count 1.9 X10^3/uL (2.0-7.7); Basophil# 0.12 X10^3/uL; Basophil% 2.4 % (0-1); Eosinophil# 0.06 X10^3/uL; Eosinophils% 1.2 % (0-5); Hematocrit 42.3 % (37-47); Hemoglobin 14.8 g/dL (12.0-15.0); Lymphocyte # 2.27 X10^3/ul (0.83-4.51); Mean Corpuscular Hgb 35.7 pg (27.0-32.0); Mean Corpuscular Volume 101.9 fL (81-99); Mean Platelet Vol. 9.6 fl (6.2-12.0); Monocyte# 0.69 X10^3/uL; Monocyte% 13.7 % (0-10); NRBC Flagged by Analyzer 0.4 % (0-5); Neutrophil # 1.88 X10^3/uL (2.7-7.7); Neutrophil % 37.1 % (47-70); POSITIVE MORPHOLOGY YES; Platelet Count 272 K/mm3 (150-450); RBC Distribution Width SD 66.7 fl (35.1-43.9); Red Blood Count 4.15 M/mm3 (4.2-5.4); White Blood Count 5.1 K/mm3 (4.4-11.0)
[2024-07-24 15:31] LABS: Differential Indicated SCAN CRITERIA MET
[2024-07-24 15:42] LABS: Anion Gap 11 (5-15); BUN 2 mg/dL (7-18); BUN/Creat Ratio 2.7 RATIO (10-20); Calcium,Total 8.1 mg/dL (8.5-10.1); Chloride 90 mmol/L (98-107); Creatinine, Serum 0.73 mg/dL (0.55-1.02); EST Glomerular Filtration Rate 88 mL/min (>60); Est Glom Filt Rate - Afr Amer 106 mL/min (>60); Estimated Creatinine Clearance 102.05 ml/min; Glucose 124 mg/dL (74-106); Potassium 2.8 mmol/L (3.5-5.1); Sodium Level 130 mmol/L (136-145)
--- NOTE | 2024-07-24 16:04 | EX.ED.DYSGE1 ---
HPI History of Present Illness Chief Complaint: Substance Abuse Narrative Narrative: Chief complaint and HPI: Alcohol detox. 53-year-old female with past medical history of hypothyroidism and alcoholism presents for alcohol detox. Patient has had alcohol detox in the past here in our hospital. She denies any history of seizures with detox. Her last alcoholic drink was prior to arrival. She drinks daily and vodka. She also endorses a loss of taste and smell about a week ago and nasal congestion. She is concerned she may have COVID. She states her symptoms are improving. She denies any fever, cough, shortness of breath, chest pain, abdominal pain, nausea, vomiting, dysuria. Denies any other illicit drug use. Of note, patient was a rapid response outside given that she fell off of a curb. She does not know if she hit her head. Denying any headache, neck pain, back pain, extremity pain. Has no complaints from the fall. Review of systems: See HPI Medications: As listed on the chart Allergies: As listed on the chart PFSH: Per chart Vital signs: As listed on the chart. Reviewed. Physical exam: Gen: A&O x3 but intoxicated, NAD Head: Normocephalic, atraumatic Eyes: No sclera icterus, conjunctiva clear, PERRL, EOMI ENT: TMs clear BL-ear tube in the right ear, moist mucous membranes, no swelling/lacerations/blood in the mouth or the nares, No nasal septal hematoma, no facial tenderness Neck: Trachea midline, No JVD, Nontender CV: RRR, no murmurs, no chest wall TTP Resp: Lungs CTA BL, no w/r/c GI: Abd soft, non-distended, non-tender, no r/r/g Musc: Full ROM, no deformity, no spinal TTP, no magdy step-offs Skin: Warm, dry, intact Neuro: Alert, oriented, grossly intact, sensation intact, GCS 15 but intoxicated Psych: Cooperative, appropriate mood and affect [facility] Medical History Alcohol abuse History of breast cancer HTN (hypertension) Hypothyroid Home Medications ?Medication ?Instructions ?Recorded ?Last Taken ?Type omeprazole 40 mg capsule,delayed 40 mg PO DAILY GERD 12/02/20 05/27/24 History release levothyroxine 150 mcg tablet 150 mcg PO DAILY thyroid 02/20/24 05/27/24 History lorazepam 0.5 mg tablet (Ativan) 0.5 mg PO DAILY PRN sleep 05/28/24 05/28/24 History ondansetron 4 mg disintegrating 4 mg PO Q6H PRN PRN Nausea #15 tabs 05/28/24 Unknown Rx tablet potassium chloride 20 mEq 20 meq PO BID supplement #10 tabs 05/28/24 Unknown Rx tablet,extended release zolpidem 5 mg tablet 5 mg PO QHS PRN sleep 05/28/24 Unknown History Allergy/AdvReac Type Severity Reaction Status Date / Time Penicillins Allergy Hives Verified 07/24/24 14:13 Sulfa (Sulfonamide Allergy Hives Verified 07/24/24 14:13 Antibiotics) vancomycin Allergy Hives Verified 07/24/24 14:13 Family History (Updated 07/24/24 @ 19:[address] Dung Gómez DO) Other Alcoholism Surgical History H/O mastectomy H/O: hysterectomy Social History Smoking Status: Former smoker EXAM Physical Exam Const Vital Signs: 07/24/24 14:07 07/24/24 15:06 07/24/24 16:02 Temperature 97.8 F Temperature Source Oral Pulse Rate 68 86 76 Respiratory Rate 18 16 26 H Blood Pressure 147/89 H 124/87 H Blood Pressure Mean 108 99 Pulse Ox 96 98 97 Oxygen Delivery Method Room Air Room Air Room Air 07/24/24 17:00 07/24/24 18:00 07/24/24 19:00 Temperature Temperature Source Pulse Rate 75 80 85 Respiratory Rate 13 19 H 18 Blood Pressure Blood Pressure Mean Pulse Ox Oxygen Delivery Method MDM MDM MDM Narrative Medical decision making narrative: 53-year-old female with past medical history of hypothyroidism and alcoholism presents for alcohol detox. Patient's last drink was prior to arrival. Patient had a fall outside prior to ED visit. She is intoxicated. No complaints from the fall. Differential diagnosis includes but is not limited to alcohol intoxication, electrolyte abnormality, JUAN DAVID, transaminitis. Given patient is currently intoxicated with alcohol cannot fully clear her for intracranial bleed or cervical fracture therefore CT head and neck ordered. NS bolus ordered. CBC without leukocytosis or anemia. INR within normal limits. BMP shows dehydration with hyponatremia and hypokalemia. No JUAN DAVID. P.o. and IV potassium ordered. Hepatic panel shows baseline hyperbilirubinemia and transaminitis. AST is higher than ALT which is consistent with alcoholic transaminitis. Urine drug screen negative. Ethanol level positive at 364. CT of the cervical spine and head are negative for traumatic injury. Patient admitted to the hospital for alcohol detox. Patient updated of all results and confirmed understanding of the plan. Impression: 1. Requesting alcohol detox 2. Hyponatremia 3. Hypokalemia 4. Alcoholic transaminitis 5. Mechanical fall 6. Alcohol intoxication Lab Data Labs: Laboratory Results - last 24 hr 07/24/24 07/24/24 07/24/24 15:09 15:50 16:04 WBC 5.1 RBC 4.15 L Hgb 14.8 Hct 42.3 MCV 101.9 H MCH 35.7 H MCHC 35.0 RDW Std Deviation 66.7 H RDW Coeff of [place] 18.0 H Plt Count 272 MPV 9.6 Immature Gran % (Auto) 0.600 Neut % (Auto) 37.1 L Lymph % (Auto) 45.0 H [place] % (Auto) 13.7 H Eos % (Auto) 1.2 Baso % (Auto) 2.4 H Absolute Neuts (auto) 1.9 L Absolute Lymphs (auto) 2.27 Nucleated RBC % 0.4 Platelet Estimate ADEQUATE RBC Morphology N CHROM Anisocytosis 1+ Macrocytosis 1+ PT 15.2 H INR 1.2 APTT 27.7 Sodium 130 L Potassium 2.8 L Chloride 90 L Carbon Dioxide 29.0 Anion Gap 11 BUN 2 L Creatinine 0.73 Estim Creat Clear Calc 102.05 Est GFR (MDRD) Af Amer 106 Est GFR (MDRD) Non-Af 88 BUN/Creatinine Ratio 2.7 L Glucose 124 H Calcium 8.1 L Total Bilirubin 2.00 H Direct Bilirubin 0.74 H AST 236 H ALT 62 H Alkaline Phosphatase 193 H Total Protein 6.5 Albumin 2.8 L Globulin 3.7 Urine Opiates Screen NEGATIVE Urine Methadone Screen NEGATIVE Ur Barbiturates Screen NEGATIVE Ur Phencyclidine Scrn NEGATIVE Ur Amphetamines Screen NEGATIVE MDMA (Ecstasy) Screen NEGATIVE U Benzodiazepines Scrn NEGATIVE Urine Cocaine Screen NEGATIVE U Cannabinoids Screen NEGATIVE Ur Drug Screen Comment Ethyl Alcohol 364.0 H* Radiography Diagnostic Testing: Clinical Impression(s) from Imaging Studies Brain CT 07/24/24 16:56 IMPRESSION: No definite acute or significant abnormality seen. Electronically Signed: Raymond Leon MD at 18:40 EST , Cervical Spine CT 07/24/24 16:57 IMPRESSION: There is no definite acute fracture/dislocation. Degenerative changes. Electronically Signed: Raymond Leon MD at 18:49 EST , Discharge Plan Disposition Disposition: Acute Care Hospital [facility] Discharge Date/Time: 07/24/24 21:14
[2024-07-24] MEDS: 0.9% Normal Saline (1000mL) 1,000 ML 1000 ML IV (16:10)
[2024-07-24 16:19] LABS: Anisocytosis 1+; Macrocytosis 1+; Platelet Estimate ADEQUATE (ADEQ); Red Cell Morphology N CHROM NORMAL (NORM C&C)
[2024-07-24 16:30] LABS: International Normalized Ratio 1.2; Prothrombin Time (Protime)PT. 15.2 SECONDS (11.7-14.9)
[2024-07-24 16:31] LABS: Partial Thromboplast Time 27.7 Seconds (24.1-36.2)
[2024-07-24 16:42] LABS: Amphetamine Urine VISTA NEGATIVE (<1000 ng/mL); Barbiturate Urine VISTA NEGATIVE (< 200 ng/mL); Benzodiazepine Urine VISTA NEGATIVE (< 200 ng/mL); Cocaine Urine VISTA NEGATIVE (< 300 ng/mL); Ecstacy Urine VISTA NEGATIVE (< 500 ng/mL); Methadone Urine VISTA NEGATIVE (< 300 ng/mL); PCP Urine VISTA NEGATIVE (< 25 ng/mL); THC Urine VISTA NEGATIVE (< 50 ng/mL); Vista UDS pH Range 5
--- NOTE | 2024-07-24 16:56 | CT_ITS ---
STUDY: CT BRAIN WITHOUT CONTRAST REASON FOR EXAM: Female, 53 years old. Trauma RADIATION DOSAGE (If Supplied By Facility): CTDIvol = ( 44.99 ) mGy, DLP = ( 745.49 ) mGycm TECHNIQUE: Transaxial CT imaging of the brain was performed without administration of intravenous contrast material. Individualized dose optimization techniques were used for this CT. COMPARISON: 12/02/2020 FINDINGS: Normal soft tissue structures. Normal calvarium. Normal size ventricles and extra-axial spaces for the patient''s age. Normal white matter tracts of the cerebral hemispheres. There are small punctate calcifications of the basal ganglia which are seen in the aging brain as a normal variant. Normal brainstem. Normal cerebellum. There is no intracranial hemorrhage. There are no findings of an acute ischemic infarction. There is mucoperiosteal inflammatory disease of the paranasal sinuses consistent with mild chronic sinusitis. CT/Brain/Head without Contrast IMPRESSION: No definite acute or significant abnormality seen. Electronically Signed: Raymond Leon MD at 18:40 EST ,
--- NOTE | 2024-07-24 16:57 | CT_ITS ---
STUDY: CT CERVICAL SPINE WITHOUT CONTRAST REASON FOR EXAM: Female, 53 years old. Trauma RADIATION DOSAGE (If Supplied By Facility): CTDIvol = ( 25.52 ) mGy, DLP = ( 479.53 ) mGycm TECHNIQUE: High resolution transaxial imaging was performed without contrast material. Sagittal and coronal images were reconstructed. Individualized dose optimization techniques were used for this CT. COMPARISON: None FINDINGS: No definite acute fracture/dislocation. The cervical junction is intact. C1-C2 articulation is intact. Mild reversal of curvature. There is normal alignment. Facet joints are intact at all levels bilaterally. No jumped facets. Multilevel degenerative disc disease seen. Multilevel loss of disc height. Multilevel posterior marginal osteophytes and disc bulges. Multilevel neural foraminal narrowing. Multilevel narrowing of the spinal canal. Visualized paraspinal soft tissues and structures are unremarkable. CT/Spine Cervical without Contras IMPRESSION: There is no definite acute fracture/dislocation. Degenerative changes. Electronically Signed: Raymond Leon MD at 18:49 EST ,
[2024-07-24 17:13] LABS: AST(SGOT) 236 U/L (15-37); Alanine Aminotransfer ALT/SGPT 62 U/L (13-56); Albumin, Serum 2.8 g/dL (3.2-5.0); Alkaline Phosphatase 193 U/L (45-117); Bilirubin, Direct 0.74 mg/dL (0.00-0.30); Globulin 3.7 g/dL (2.2-4.2); Protein, Total 6.5 g/dL (6.4-8.2)
[2024-07-24] MEDS: Potassium Chloride 10mEq/100mL 10 MEQ/100 ML IV.SOLN. 100 MEQ IV BOLUS ×3 (17:20→19:36)
[2024-07-24] MEDS: Potassium Chloride Oral Soln 20 MEQ/15 ML UDC 40 MEQ PO (18:30)
--- NOTE | 2024-07-24 19:32 | PCM.HP.STD ---
HPI - General General Date of Service: 07/24/24 Chief Complaint: Not feeling well HPI Narrative ORA ADAMS, is a 53 F who presents to the hospital not feeling well. Patient had been sick since Wednesday of last week after being around family for [place]. Was getting ready to come to the hospital where she was unable to clear the curb and fell backwards hitting her head. She did not lose consciousness. A rapid response team was called and the fact the patient hit her head, c-collar and a backboard was ordered and patient was brought to the emergency room. Her cervical spine and head CT were cleared and negative. Patient is also requesting treatment for withdrawal from alcohol. Patient drinks a small bottle of vodka daily. States that when she tries not drinking she feels poorly. Patient was also positive for COVID-19 which is likely why she has been sick since last week. Even though she now has COVID (which is the first time that she has knowingly had that) she is willing to stay here to get treatment for alcohol withdrawal. Patient was evaluated by myself during the rapid response team [facility] Medical History Alcohol abuse History of breast cancer HTN (hypertension) Hypothyroid Home Medications ?Medication ?Instructions ?Recorded ?Last Taken ?Type omeprazole 40 mg capsule,delayed 40 mg PO DAILY GERD 12/02/20 05/27/24 History release levothyroxine 150 mcg tablet 150 mcg PO DAILY thyroid 02/20/24 05/27/24 History lorazepam 0.5 mg tablet (Ativan) 0.5 mg PO DAILY PRN sleep 05/28/24 05/28/24 History ondansetron 4 mg disintegrating 4 mg PO Q6H PRN PRN Nausea #15 tabs 05/28/24 Unknown Rx tablet potassium chloride 20 mEq 20 meq PO BID #10 tabs 05/28/24 Unknown Rx tablet,extended release zolpidem 5 mg tablet 5 mg PO QHS PRN 05/28/24 Unknown History Allergy/AdvReac Type Severity Reaction Status Date / Time Penicillins Allergy Hives Verified 07/24/24 14:13 Sulfa (Sulfonamide Allergy Hives Verified 07/24/24 14:13 Antibiotics) vancomycin Allergy Hives Verified 07/24/24 14:13 Family History (Updated 07/24/24 @ 19:[address] Dung Gómez DO) Other Alcoholism Surgical History H/O mastectomy H/O: hysterectomy Social History Smoking Status: Former smoker ROS ROS Narrative Sore throat. Cough. Congested ears. Has cough to the point where she has vomited. All review of systems were negative except as mentioned above in the history of present illness and the other review of systems. Vital Signs Vital Signs Vital Signs: 07/24/24 14:07 07/24/24 15:06 07/24/24 16:02 Temperature 36.6 C Temperature Source Oral Pulse Rate 68 86 76 Respiratory Rate 18 16 26 H Blood Pressure 147/89 H 124/87 H Blood Pressure Mean 108 99 Pulse Ox 96 98 97 Oxygen Delivery Method Room Air Room Air Room Air 07/24/24 17:00 07/24/24 18:00 07/24/24 19:00 Temperature Temperature Source Pulse Rate 75 80 85 Respiratory Rate 13 19 H 18 Blood Pressure Blood Pressure Mean Pulse Ox Oxygen Delivery Method Weight Weight: 107 kg Body Mass Index (BMI) 41.8 Physical Exam Const alert and no apparent distress Constitutional Narrative: Hard of hearing. Afebrile. No respiratory distress. No conversational dyspnea. HEENT normocephalic and head/scalp atraumatic HEENT Narrative: No scalp lesions Resp normal respiratory effort, no retractions, no use of accessory muscles and clear to auscultation bilaterally Cardio regular rate, regular rhythm, S1 normal heart sound and S2 normal heart sound GI normal to inspection, nondistended, normoactive bowel sounds, soft to palpation, non-tender and non-distended Extremity normal to inspection and full ROM Neuro Sensorium / Orientation: awake and alert Results Lab / Micro Data 07/24/24 15:09 07/24/24 15:09 Labs: Laboratory Results - last 24 hr 07/24/24 15:09: WBC 5.1, RBC 4.15 L, Hgb 14.8, Hct 42.3, MCV 101.9 H, MCH 35.7 H, MCHC 35.0, RDW Std Deviation 66.7 H, RDW Coeff of [place] 18.0 H, Plt Count 272, MPV 9.6, Immature Gran % (Auto) 0.600, Neut % (Auto) 37.1 L, Lymph % (Auto) 45.0 H, [place] % (Auto) 13.7 H, Eos % (Auto) 1.2, Baso % (Auto) 2.4 H, Absolute Neuts (auto) 1.9 L, Absolute Lymphs (auto) 2.27, Nucleated RBC % 0.4, Platelet Estimate ADEQUATE, RBC Morphology N CHROM, Anisocytosis 1+, Macrocytosis 1+, Sodium 130 L, Potassium 2.8 L, Chloride 90 L, Carbon Dioxide 29.0, Anion Gap 11, BUN 2 L, Creatinine 0.73, Estim Creat Clear Calc 102.05, Est GFR (MDRD) Af Amer 106, Est GFR (MDRD) Non-Af 88, BUN/Creatinine Ratio 2.7 L, Glucose 124 H, Calcium 8.1 L, Total Bilirubin 2.00 H, Direct Bilirubin 0.74 H, AST 236 H, ALT 62 H, Alkaline Phosphatase 193 H, Total Protein 6.5, Albumin 2.8 L, Globulin 3.7, Ethyl Alcohol 364.0 H* 07/24/24 15:50: Urine Opiates Screen NEGATIVE, Urine Methadone Screen NEGATIVE, Ur Barbiturates Screen NEGATIVE, Ur Phencyclidine Scrn NEGATIVE, Ur Amphetamines Screen NEGATIVE, MDMA (Ecstasy) Screen NEGATIVE, U Benzodiazepines Scrn NEGATIVE, Urine Cocaine Screen NEGATIVE, U Cannabinoids Screen NEGATIVE, Ur Drug Screen Comment 07/24/24 16:04: PT 15.2 H, INR 1.2, APTT 27.7 Micro: Microbiology 07/24/24 15:55 Mucosa - Nose SARS-CoV-2, Influenza & RSV (PCR) - Final SARS-CoV-2 (COVID 19) Imaging Radiology Impression Brain CT 07/24/24 16:56 IMPRESSION: No definite acute or significant abnormality seen. Electronically Signed: Raymond Leon MD at 18:40 EST , Cervical Spine CT 07/24/24 16:57 IMPRESSION: There is no definite acute fracture/dislocation. Degenerative changes. Electronically Signed: Raymond Leon MD at 18:49 EST , Assessment & Plan Assessment/Plan (1) Alcohol abuse: PLAN: Impending alcohol withdrawal. Patient is endorses having feelings of being unwell when she stops drinking. Patient will be on a phenobarbital taper when that initiates. Additionally thiamine and folate. Encouraged the patient to speak with addiction medicine to facilitate some outpatient program when this hospitalization has been completed. Of note, patient did not immediately seek treatment for alcohol withdrawal but for the fact that she was feeling unwell which was due to her having COVID. Despite having COVID she was still drinking. She was upset about not having a phone available. I told her that she could come back when she is more ready but she said that she wishes to stay here to undergo the withdrawal program. (2) Hypokalemia: PLAN: Chronic problem as patient is already on potassium replacements. Patient did receive a dose of potassium here. Will follow that up in the morning as well as check her magnesium level. May be nutritional due to her chronic alcoholism (3) COVID-19: PLAN: Not hypoxic and therefore not requiring treatment for COVID-19. Onset was the so that will be day 0. Patient will need to quarantine through today and then wear a mask for the following 5 days of the through 29 July (4) Fall: PLAN: Patient likely did not raise her foot high enough to clear the curb outside the hospital. Complicated by the fact that she was intoxicated. She did have a head CT and CT of the neck that was unremarkable. No additional workup at this time. PLAN: Plan Chronic conditions Hypothyroidism: Continue levothyroxine VTE prophylaxis: Patient to be ambulatory low risk. CODE STATUS is full Charges/Coding Visit Charges Inpatient E&M: 75582 Init Hosp L2
[2024-07-24] MEDS: Potassium Chloride Oral Tablet 20 MEQ PO (21:36)
[2024-07-24] MEDS: Phenobarbital 32.4 MG Tablet 64.8 MG PO (21:36)
[2024-07-24] MEDS: Zolpidem Tartrate 5 MG Tablet PO (21:36)
[2024-07-25] MEDS: Phenobarbital 32.4 MG Tablet 64.8 MG PO ×6 (01:27→21:17)
[2024-07-25 01:31] VITALS: BP 139/97; PULSE 90; RESP 17; TEMP 36.4; O2SAT 93
[2024-07-25] MEDS: Levothyroxine 150 MCG Tablet PO (05:12)
[2024-07-25 05:14] VITALS: BP 142/94; PULSE 102; RESP 16; TEMP 36.6; O2SAT 94
[2024-07-25] MEDS: hydrOXYzine PAM 25 MG Capsule 50 MG PO (05:21)
[2024-07-25 07:09] LABS: Anion Gap 9 (5-15); BUN 3 mg/dL (7-18); BUN/Creat Ratio 4.2 RATIO (10-20); Calcium,Total 8.2 mg/dL (8.5-10.1); Chloride 98 mmol/L (98-107); Creatinine, Serum 0.71 mg/dL (0.55-1.02); EST Glomerular Filtration Rate 91 mL/min (>60); Est Glom Filt Rate - Afr Amer 110 mL/min (>60); Estimated Creatinine Clearance 92.91 ml/min; Glucose 100 mg/dL (74-106); Potassium 3.5 mmol/L (3.5-5.1); Sodium Level 132 mmol/L (136-145)
[2024-07-25 09:14] VITALS: BP 160/97; PULSE 98; RESP 18; TEMP 36.5; O2SAT 98
[2024-07-25] MEDS: Folic Acid 1 MG Tablet PO (09:23)
[2024-07-25] MEDS: Pantoprazole Sodium 40 MG Tablet PO (09:23)
[2024-07-25] MEDS: Potassium Chloride Oral Tablet 20 MEQ PO ×2 (09:23→21:19)
[2024-07-25] MEDS: Thiamine Hydrochloride 100 MG Tablet PO (09:23)
[2024-07-25] MEDS: Gabapentin 300 MG Capsule PO (09:24)
--- NOTE | 2024-07-25 09:56 | PN.HOSP_ITS ---
Subjective Subjective No issues overnight, CIWA score of 9 Objective Data Objective Data Vital Signs: Vital Signs Temp Pulse Resp BP Pulse Ox O2 Del Method 97.7 F L 98 18 160/97 H 98 Room Air 07/25/24 09:14 07/25/24 09:14 07/25/24 09:14 07/25/24 09:14 07/25/24 09:14 07/25/24 09:14 Oxygen Delivery Method Room Air Weight: 196 lb 10.437 oz Body Mass Index (BMI) 35.9 Intake & Output: Intake and Output for Last 24 Hours 07/24/24 07/25/24 07/26/24 03:59 03:59 03:59 Intake Total 1540 / 1540 2000 / 2000 Output Total 700 / 700 Balance 1540 / 1540 1300 / 1300 Lab / Micro Data 07/24/24 15:09 07/25/24 06:24 Labs: Laboratory Results - last 24 hr 07/24/24 15:09: WBC 5.1, RBC 4.15 L, Hgb 14.8, Hct 42.3, MCV 101.9 H, MCH 35.7 H , MCHC 35.0, RDW Std Deviation 66.7 H, RDW Coeff of [place] 18.0 H, Plt Count 272, MPV 9.6, Immature Gran % (Auto) 0.600, Neut % (Auto) 37.1 L, Lymph % (Auto) 45.0 H, [place] % (Auto) 13.7 H, Eos % (Auto) 1.2, Baso % (Auto) 2.4 H, Absolute Neuts (auto) 1.9 L, Absolute Lymphs (auto) 2.27, Nucleated RBC % 0.4, Platelet Estimate ADEQUATE, RBC Morphology N CHROM, Anisocytosis 1+, Macrocytosis 1+, S odium 130 L, Potassium 2.8 L, Chloride 90 L, Carbon Dioxide 29.0, Anion Gap 11, BUN 2 L, Creatinine 0.73, Estim Creat Clear Calc 102.05, Est GFR (MDRD) Af Amer 106, Est GFR (MDRD) Non-Af 88, BUN/Creatinine Ratio 2.7 L, Glucose 124 H, C alcium 8.1 L, Total Bilirubin 2.00 H, Direct Bilirubin 0.74 H, AST 236 H, ALT 62 H, Alkaline Phosphatase 193 H, Total Protein 6.5, Albumin 2.8 L, Globulin 3.7, E thyl Alcohol 364.0 H* 07/24/24 15:50: Urine Opiates Screen NEGATIVE, Urine Methadone Screen NEGATIVE, Ur Barbiturates Screen NEGATIVE, Ur Phencyclidine Scrn NEGATIVE, Ur Amphetamines Screen NEGATIVE, MDMA (Ecstasy) Screen NEGATIVE, U Benzodiazepines Scrn NEGATIVE, Urine Cocaine Screen NEGATIVE, U Cannabinoids Screen NEGATIVE, Ur Drug Screen Comment 07/24/24 16:04: PT 15.2 H, INR 1.2, APTT 27.7 07/25/24 06:24: Sodium 132 L, Potassium 3.5, Chloride 98, Carbon Dioxide 25.0, Anion Gap 9, BUN 3 L, Creatinine 0.71, Estim Creat Clear Calc 92.91, Est GFR (MDRD) Af Amer 110, Est GFR (MDRD) Non-Af 91, BUN/Creatinine Ratio 4.2 L, Glucose 100, Calcium 8.2 L, Magnesium 2.0 Micro: Microbiology 07/24/24 15:55 Mucosa - Nose SARS-CoV-2, Influenza & RSV (PCR) - Final SARS-CoV-2 (COVID 19) Radiography Diagnostic Testing: Radiology Impression Brain CT 07/24/24 16:56 IMPRESSION: No definite acute or significant abnormality seen. Electronically Signed: Raymond Leon MD at 18:40 EST , Cervical Spine CT 07/24/24 16:57 IMPRESSION: There is no definite acute fracture/dislocation. Degenerative changes. Electronically Signed: Raymond Leon MD at 18:49 EST , Physical Exam Narrative General: Alert, Oriented x3, Cooperative, No apparent distress HEENT: Atraumatic, PERRLA, EOMI, Normocephalic Oral: Moist Mucosa Neck: Supple, No JVD Lungs: Clear to auscultation, Normal air movement, No rhonchi, No wheeze, No rales Cardiovascular: Regular rate, Regular Rhythm, Normal S1, Normal S2, No murmurs Abdomen: Soft, Non Tender, Non-Distended, No Hepato-splenomegaly Extremities: No edema, Capillary Refill Less than 3 Seconds Skin: No rashes, No breakdown Musculoskeletal: No Tenderness to Palpation of Joints or Extremities Neurological: No focal neurological deficits, Motor Exam 5/5 strength throughout, Sensory exam intact to light touch and pain Psych/Mental Status: Normal Affect, Appropriate, little restless with anxiety Assessment & Plan Assessment/Plan (1) Alcohol abuse: (2) Hypokalemia: (3) COVID-19: PLAN: Plan 1. Alcohol abuse requesting detox/elevated LFTs/anxiety/depression ? Continue with the alcohol withdrawal protocol ? LFTs are really chronically elevated likely due to her alcohol use ? Will have her follow-up with 180 to determine outpatient plan ? Continue with her home mental health medications ? She did have a mechanical fall, workup was negative likely due to her being inebriated 2. Hypothyroidism ? Stable ?continue with Synthroid 3. GERD ? Stable ? Continue with PPI DVT: Ambulation Charges/Coding Visit Charges Inpatient E&M: 40590 Subs Hosp L2
--- NOTE | 2024-07-25 12:41 | ADDICTION ---
This mortgage or loan underwriter met with PT to conduct ASAM, MSE, AUDIT, DUDIT assessments and to plan for d/c. PT A+Ox4 and participated actively. All assessments completed. PT plans to f/u with follow-up treatment services. This worker offered resources. PT did not indicate a need for transportation post d/c from [facility].
[2024-07-25 14:15] VITALS: BP 135/92; PULSE 110; RESP 17; TEMP 36.9; O2SAT 97
[2024-07-25 20:14] VITALS: BP 154/100; PULSE 95; RESP 14; TEMP 36.6; O2SAT 96
[2024-07-25] MEDS: 0.9% Saline Lock 10 ML Syringe IV (21:20)
[2024-07-26 02:04] VITALS: BP 117/85; PULSE 85; RESP 16; TEMP 36.6; O2SAT 96
[2024-07-26] MEDS: Phenobarbital 32.4 MG Tablet 64.8 MG PO (02:05)
[2024-07-26 05:32] VITALS: BP 136/94; PULSE 87; RESP 16; TEMP 36.6; O2SAT 98
[2024-07-26] MEDS: Levothyroxine 150 MCG Tablet PO (05:33)
--- NOTE | 2024-07-26 05:51 | NURSING ---
Patient refusing 0530 dose of Phenobarbital. Education given on the importance of taking medication. She states, I feel fine. I have no symptoms. All I do is sleep when I take that. Education provided regarding how the medication works and that is stays in her system for days after taking it as well. Patient continues to refuse medication. Encouraged her to inform staff if she develops symptoms of alcohol w/d. Will continue to monitor.
--- NOTE | 2024-07-26 07:02 | NURSING ---
Patient requesting dc home today. Informed her to speak with physician when he rounds.
[2024-07-26] MEDS: Potassium Chloride Oral Tablet 20 MEQ PO (09:24)
[2024-07-26] MEDS: Thiamine Hydrochloride 100 MG Tablet PO (09:24)
[2024-07-26] MEDS: Pantoprazole Sodium 40 MG Tablet PO (09:24)
[2024-07-26] MEDS: Folic Acid 1 MG Tablet PO (09:24)
--- NOTE | 2024-07-26 09:39 | PCM.DC ---
Discharge Instructions Diet Discharge Diet: No restrictions DC O2, CPAP, BIPAP needs Home O2 Discharge instructions: No Dressing / Incision Discharge Activity: Return to Normal Activity Dressing / Incision Call your doctor if you observe: Fever of 101 or Higher, Shortness of breath, Dizziness, Fainting spells, Swelling in the ankles, Chest pain and Increased palpitations (irregular heartbeat) Follow Up Care Test Results: Test results from this visit will be discussed in further detail at your follow-up appointment, if applicable. Discharge Plan Admission Admit Date/Time: 07/24/24 19:27 Attending Provider: Ash Oneil Primary Care Provider: Magalie Morris NP Consulting Providers: Dung Gómez Instructions Forms: Work / School Excuse Discharge Orders/Prescriptions Prescriptions: Continued omeprazole 40 mg capsule,delayed release(DR/EC) 40 mg PO DAILY levothyroxine 150 mcg tablet 150 mcg PO DAILY zolpidem 5 mg tablet 5 mg PO QHS PRN lorazepam [Ativan] 0.5 mg tablet 0.5 mg PO DAILY PRN (Reason: sleep) ondansetron 4 mg tablet,disintegrating 4 mg PO Q6H PRN PRN (Reason: Nausea) Qty: 15 0RF potassium chloride 20 mEq tablet extended release 20 meq PO BID Qty: 10 0RF Referrals / Follow Up: Magalie Morris QUALITY IMPROVEMENT COORDINATOR, QUALITY IMPROVEMENT COORDINATOR-C [Primary Care Provider] - Within 1 Week Disposition Disposition (needs filled in before D/C Order can be placed): Home, Self Care
--- NOTE | 2024-07-26 09:41 | PCM.DC.SUM ---
Providers Date of Admission: 07/24/24 Primary Care Physician: AUGUSTINA Funes Reason For Visit: ALCOHOL WITHDRAWAL Diagnosis Discharge Diagnosis (1) Alcohol abuse: Status: Chronic Code(s): F10.10 - Alcohol abuse, uncomplicated (2) Hypokalemia: Status: Acute Code(s): E87.6 - Hypokalemia (3) COVID-19: Status: Acute Code(s): U07.1 - COVID-19 Medications at Discharge Home Medications omeprazole 40 mg capsule,delayed release 40 mg PO DAILY GERD 12/02/20 levothyroxine 150 mcg tablet 150 mcg PO DAILY thyroid 02/20/24 lorazepam 0.5 mg tablet (Ativan) 0.5 mg PO DAILY PRN sleep 05/28/24 ondansetron 4 mg disintegrating tablet 4 mg PO Q6H PRN PRN Nausea #15 tabs 05/28/24 potassium chloride 20 mEq tablet,extended release 20 meq PO BID supplement #10 tabs 05/28/24 zolpidem 5 mg tablet 5 mg PO QHS PRN sleep 05/28/24 Hospital Course Operations None Procedures None Summary of Care Provided Minutes Spent on Discharge: 32 Hospital Course: Per HPI: ORA ADAMS, is a 53 F who presents to the hospital not feeling well. Patient had been sick since Wednesday of last week after being around family for [employer]. Was getting ready to come to the hospital where she was unable to clear the curb and fell backwards hitting her head. She did not lose consciousness. A rapid response team was called and the fact the patient hit her head, c-collar and a backboard was ordered and patient was brought to the emergency room. Her cervical spine and head CT were cleared and negative. Patient is also requesting treatment for withdrawal from alcohol. Patient drinks a small bottle of vodka daily. States that when she tries not drinking she feels poorly. Patient was also positive for COVID-19 which is likely why she has been sick since last week. Even though she now has COVID (which is the first time that she has knowingly had that) she is willing to stay here to get treatment for alcohol withdrawal. Patient was evaluated by myself during the rapid response team Hospital Course: 1. Alcohol abuse with chronically elevated LFTs requesting detox?53-year-old female was a rapid response outside of the hospital where she had slipped and fallen and hit her head. CT of the brain was unremarkable. She did indicate a desire for detox so she was brought in and started on the alcohol withdrawal protocol. She is decided to go home today. She was also found to be incidentally positive for COVID however was not hypoxic Were not treated and she had been symptomatic for about 10 to 14 days at the point of admission. I discussed with her the plan for discharge today she expressed understanding of the risk benefits going home and would like to go home today. I do recommend that she follow-up with her PCP to monitor her liver functions and to proceed with outpatient rehab. As for her COVID nothing to do at this time. 2. Hypothyroidism, GERD, anxiety, depression are all chronic medical conditions which complicate her care. Her home medications were continued where appropriate Physical Exam Narrative General: Alert, Oriented x3, Cooperative, No apparent distress HEENT: Atraumatic, PERRLA, EOMI, Normocephalic Oral: Moist Mucosa Neck: Supple, No JVD Lungs: Clear to auscultation, Normal air movement, No rhonchi, No wheeze, No rales Cardiovascular: Regular rate, Regular Rhythm, Normal S1, Normal S2, No murmurs Abdomen: Soft, Non Tender, Non-Distended, No Hepato-splenomegaly Extremities: No edema, Capillary Refill Less than 3 Seconds Skin: No rashes, No breakdown Musculoskeletal: No Tenderness to Palpation of Joints or Extremities Neurological: No focal neurological deficits, Motor Exam 5/5 strength throughout, Sensory exam intact to light touch and pain Psych/Mental Status: Normal Affect, Appropriate Weight / BMI Weight Weight: 196 lb 10.437 oz Body Mass Index (BMI) 35.9 ABG / Lab / Microbiology Data 07/24/24 15:09 07/25/24 06:24 Microbiology: Microbiology 07/24/24 15:55 Mucosa - Nose SARS-CoV-2, Influenza & RSV (PCR) - Final SARS-CoV-2 (COVID 19) D/C Instructions Discharge Diet: No restrictions Call your doctor if you observe: Fever of 101 or Higher, Shortness of breath, Dizziness, Fainting spells, Swelling in the ankles, Chest pain and Increased palpitations (irregular heartbeat) DC O2, CPAP, BIPAP Needs Home O2 Discharge instructions: No Meaningful Use Info Meaningful Use Meaningful Use Diagnoses (Choose all that apply): None applicable Ischemic Stroke Statin Dosing Therapy Reference: STATIN DOSE THERAPY REFERENCE: * Patients > 75 years receive moderate or high dose statin therapy. * Patients 75 years or YOUNGER should receive HIGH intensity statin dose unless contraindicated. You will be required to document reason for non-treatment if statin daily dose does not meet guidelines. HIGH DOSE STATIN THERAPY DAILY Atorvastatin > than or = to 40 mg Rosuvastatin > than or = to 20 mg Amlodipine + Atorvastatin > than or = to 2.5/40 mg Ezetimibe + Simvastatin 10/80 mg Simvastatin 80mg Discharge Plan Admission Admit Date/Time: 07/24/24 19:27 Attending Provider: Ash Oneil Primary Care Provider: Magalie Morris NP Consulting Providers: Dung Gómez Instructions Forms: Work / School Excuse Discharge Orders/Prescriptions Prescriptions: Continued omeprazole 40 mg capsule,delayed release(DR/EC) 40 mg PO DAILY levothyroxine 150 mcg tablet 150 mcg PO DAILY zolpidem 5 mg tablet 5 mg PO QHS PRN lorazepam [Ativan] 0.5 mg tablet 0.5 mg PO DAILY PRN (Reason: sleep) ondansetron 4 mg tablet,disintegrating 4 mg PO Q6H PRN PRN (Reason: Nausea) Qty: 15 0RF potassium chloride 20 mEq tablet extended release 20 meq PO BID Qty: 10 0RF Referrals / Follow Up: Magalie Morris ELEMENTARY SCHOOL REGISTRAR, ELEMENTARY SCHOOL REGISTRAR-C [Primary Care Provider] - Within 1 Week Disposition Disposition (needs filled in before D/C Order can be placed): Home, Self Care Charges/Coding Visit Charges Inpatient E&M: 02955 Disch Hosp >30min
== END 2024-07-26 10:22 | disposition home or self-care (01) | DRG 896 ==
LOC: ED 15:48 → MS3 20:02
PROVIDERS: Emergency Provider Surgery; PCP Internal Medicine; Visit Provider Family Medicine
DX: F10.139 Alcohol abuse with withdrawal, unspecified (principal); U07.1 COVID-19; E87.1 Hypo-osmolality and hyponatremia; E03.9 Hypothyroidism, unspecified; I10 Essential (primary) hypertension; F32.A Depression, unspecified; F10.129 Alcohol abuse with intoxication, unspecified; E87.6 Hypokalemia; F41.9 Anxiety disorder, unspecified; K21.9 Gastro-esophageal reflux disease without esophagitis; W10.1XXA Fall (on)(from) sidewalk curb, initial encounter; Z87.891 Personal history of nicotine dependence; Z79.890 Hormone replacement therapy; Z90.710 Acquired absence of both cervix and uterus; Y90.8 Blood alcohol level of 240 mg/100 ml or more; Y92.238 Other place in hospital as the place of occurrence of the external cause; Z85.3 Personal history of malignant neoplasm of breast
CPT/HCPCS: 36415; 70450; 72125; 80048; 80076; 80307; 82077; 83735; 85025; 85610; 85730; 87631; 99285; A4216

== ENCOUNTER 2024-10-14 02:17 | Emergency (ER) | payer OTHER, SELFPAY ==
[2024-10-14] VITALS (10 sets, daily range): BP systolic 143–169; BP diastolic 78–113; PULSE 77–95; RESP 16–20; TEMP 36.8–37; O2SAT 94–98; BMI 37.5
--- NOTE | 2024-10-14 02:50 | EKG12_ITS ---
Test Reason : DYSRHYTHMIA Blood Pressure : */* mmHG Vent. Rate : 82 BPM Atrial Rate : 82 BPM P-R Int : 162 ms QRS Dur : 68 ms QT Int : 410 ms P-R-T Axes : 45 2 28 degrees QTcB Int : 479 ms Normal sinus rhythm Possible Left atrial enlargement Septal infarct , age undetermined Abnormal ECG Confirmed by ROBEL SOMMERS, CHANG ([id number]), supervising film or videotape editor DAMON AGUILAR ([id number]) on 10/16/2024 6:39:21 AM Referred By: ANASTASIA Confirmed By: CHANG HUSTON MD
[2024-10-14] MEDS: Aspirin 81 MG TAB.CHEW 324 MG PO (02:59)
[2024-10-14] MEDS: 0.9% Normal Saline (1000mL) 1,000 ML 999 ML IV (02:59)
--- NOTE | 2024-10-14 03:13 | RAD_ITS ---
PROCEDURE: RIBS UNI MIN 3V W/PA CHEST 10/14/2024 REASON FOR EXAM: PAIN, FALL TECHNIQUE: PA view of the chest and 4 views of the left ribs. COMPARISON: None FINDINGS: Anterolateral left 5th and 6th rib fracture deformities, correlate for age/focal tenderness. Old lateral right 9th rib fracture deformity. The lungs appear clear. No pneumothorax or pleural effusion identified at this time. The cardiac and mediastinal contours appear within limits. Soft tissue surgical clips noted. RAD/Ribs Uni Min 3V w/PA Chest IMPRESSION: Anterolateral left 5th and 6th rib fracture deformities, correlate for age/foca l tenderness. No pneumothorax or pleural effusion identified at this time. Reading Location: [id number]
--- NOTE | 2024-10-14 03:30 | ED.VIS.CHEST ---
HPI History of Present Illness Chief Complaint: Chest Pain Narrative Narrative: Chief complaint and HPI: Chest pain. 53-year-old female with past medical history of alcoholic pancreatitis, breast cancer, HTN presents for evaluation of left sided chest pain. Patient states on Wednesday she had a mechanical fall on ice. She states she landed on her left side. She has bruises noted to the left arm. Did not hit her head. No LOC. Patient states she started having some left-sided chest pain around 1900. She states it radiates into her left arm and shoulder. It is located under her left breast and radiates to her left side. Describes it as crampy. Has not taken anything for the pain. She denies any shortness of breath, cough, lightheadedness, diaphoresis, nausea, vomiting. Patient states that she did have a lot of watery diarrhea today. She states on Wednesday she was having some epigastric abdominal pain and thinks she may have had a pancreatitis flare as she did have 4 alcoholic drinks last week. She states that she has had no alcohol since. She states that she is no longer a daily drinker. Denies any alcohol use today. Denies any dysuria, bilateral lower extremity swelling or pain. Review of systems: See HPI Medications: As listed on the chart Allergies: As listed on the chart PFSH: Per chart Vital signs: As listed on the chart. Reviewed. Physical exam: Gen: A&O x3, NAD Head: Normocephalic, atraumatic Eyes: Mild sclera icterus, conjunctiva clear, PERRL, EOMI ENT: Moist mucous membranes Neck: Trachea midline, No JVD CV: RRR, no murmurs, patient has tenderness to palpation of the left lateral ribs-no ecchymosis or crepitus, no peripheral edema Resp: Lungs CTA BL, no w/r/c GI: Abd soft, non-distended, non-tender, no r/r/g Musc: Full ROM, no deformity, multiple old ecchymosis to the left upper extremity from her recent fall Skin: Warm, mildly jaundice Neuro: Alert, oriented, grossly intact, sensation intact Psych: Cooperative, appropriate mood and affect [facility] Medical History Alcohol abuse History of breast cancer HTN (hypertension) Hypothyroid Home Medications ?Medication ?Instructions ?Recorded ?Last Taken ?Type omeprazole 40 mg capsule,delayed 40 mg PO DAILY GERD 12/02/20 05/27/24 History release levothyroxine 150 mcg tablet 150 mcg PO DAILY thyroid 02/20/24 05/27/24 History lorazepam 0.5 mg tablet (Ativan) 0.5 mg PO DAILY PRN sleep 05/28/24 05/28/24 History ondansetron 4 mg disintegrating 4 mg PO Q6H PRN PRN Nausea #15 tabs 05/28/24 Unknown Rx tablet potassium chloride 20 mEq 20 meq PO BID supplement #10 tabs 05/28/24 Unknown Rx tablet,extended release zolpidem 5 mg tablet 5 mg PO QHS PRN sleep 05/28/24 Unknown History gabapentin 100 mg capsule 100 mg PO BID 10/14/24 Unknown History gabapentin 300 mg capsule 300 mg PO QHS PRN pain 10/14/24 Unknown History Allergy/AdvReac Type Severity Reaction Status Date / Time Penicillins Allergy Hives Verified 10/14/24 02:20 Sulfa (Sulfonamide Allergy Hives Verified 10/14/24 02:20 Antibiotics) vancomycin Allergy Hives Verified 10/14/24 02:20 Family History Other Alcoholism Surgical History H/O mastectomy H/O: hysterectomy Social History Smoking Status: Former smoker EXAM Physical Exam Const Vital Signs: 10/14/24 02:20 10/14/24 02:20 10/14/24 02:25 Temperature 98.6 F 98.6 F Temperature Source Oral Oral Pulse Rate 95 93 Respiratory Rate 20 H 20 H Respiratory Effort Normal Blood Pressure 153/96 H 153/96 H Blood Pressure Mean 115 115 Pulse Ox 95 95 Oxygen Delivery Method Room Air Room Air 10/14/24 03:25 10/14/24 04:00 10/14/24 05:00 Temperature 98.6 F Temperature Source Oral Pulse Rate 91 80 81 Respiratory Rate 18 19 H 18 Respiratory Effort Blood Pressure 169/113 H 157/108 H 165/107 H Blood Pressure Mean 131 124 126 Pulse Ox 94 96 98 Oxygen Delivery Method Room Air Room Air Room Air 10/14/24 06:00 Temperature Temperature Source Pulse Rate 83 Respiratory Rate 16 Respiratory Effort Blood Pressure 143/90 H Blood Pressure Mean 107 Pulse Ox 94 Oxygen Delivery Method Room Air MDM MDM MDM Narrative Medical decision making narrative: 53-year-old female with past medical history of alcoholic pancreatitis, breast cancer, HTN presents for evaluation of left sided chest pain. Associated symptoms are a fall on the left side on Wednesday as well as watery diarrhea. Differential diagnosis includes but is not limited to musculoskeletal strain, electrolyte abnormality, dehydration, ACS, rib fracture, pancreatitis, cirrhosis, UTI. Aspirin and NS bolus ordered. Laboratory workup ordered including chest x-ray including the left ribs. EKG and chest x-ray reviewed below. Patient has left fifth and sixth rib fractures. Suspect these are acute as patient fell on her left side. She is tender to palpation in this area on physical exam. CBC without leukocytosis or anemia. CMP shows baseline hyponatremia. No JUAN DAVID. Patient has hyperbilirubinemia of 7.28. Will order direct bilirubin. She has transaminitis with an AST of 271 and an ALT of 70. This is up-trending from June. Alkaline phosphatase 263. Lipase 112. Given patient's laboratory findings she would benefit from upper quadrant abdominal ultrasound. I do not have this available therefore CT abdomen pelvis ordered. Troponin 34. Will get 2-hour troponin. UA positive for urobilinogen. Negative for UTI. CT abdomen pelvis shows diffuse atrophic appearing pancreas. Findings are consistent with pancreatitis with lobular soft tissue density surrounding the majority of the tail the pancreas measuring 5 x 6 x 5.3 cm may be related to peripancreatic fat necrosis/phlegmon with developing complex pseudocyst or peripancreatic hemorrhage not entirely excluded. Mild adjacent fat stranding/edema. Small amount of fluid along the upper greater curvature the stomach left upper quadrant. Enlarged markedly fatty appearing liver. Gallbladder is prominent in size without findings of acute cholecystitis. Patient currently not reporting any abdominal pain. She is nontender on physical exam. Suspect more of a chronic pancreatitis. Repeat troponin 19. INR 1.3. Direct bilirubin is 4.72. Patient will warrant further GI workup for her CT abdomen pelvis findings as well as jaundice with hyperbilirubinemia. Patient was updated of all the results and confirmed understand of the plan. I do feel that her left-sided chest pain is from her rib fractures. She currently states her pain is improving. I do not have GI on consult today therefore hospitalist was contacted for admission. I spoke with Dr. Plata who recommend the patient be transferred. [facility] transfer line contacted, no beds available. Will contact [facility]. I spoke with [facility] Transfer line as well as hospitalist Dr. Chaparro. He accepted admission. They do not have any beds available. States that is may take days. They will keep her on their list. Patient does have [facility]. [facility] recommended trying [facility] as well. They will be contacted. I spoke with [facility] transfer line. Given that patient is within their 14 days of trauma, they would like me to speak to the ER physician to make sure that the patient does not need to be transferred as a trauma. I do not personally feel that the patient need transfer to trauma. Dr. Oviedo, ER physician agreed that patient could be a medical transfer. I spoke with hospitalist, Dr. Lopez. He will accepted admission to [facility] as well as GI is in agreement. Patient signed out to oncoming physician. Plan is to transfer to outlying facility, [facility] vs. [facility]. EKG: Interpreted by me/EM physician: EKG shows normal sinus rhythm without any acute ischemic changes. Heart rate 82. This was compared to previous EKG and similar. Diagnostic: Interpreted by me/EM physician: Chest x-ray without pneumonia, effusion, cardiomegaly, pneumothorax. There is left fifth and sixth rib fracture which is consistent where the patient is tender on physical exam. She also has old lateral right ninth rib fracture deformity per radiology. Impression: 1. Left fifth and sixth rib fractures 2. Mechanical fall 3. Hyperbilirubinemia with jaundice 4. Transaminitis 5. Chronic pancreatitis with suspected with lobular soft tissue density surrounding the majority of the tail the pancreas measuring 5 x 6 x 5.3 cm may be related to peripancreatic fat necrosis/phlegmon with developing complex pseudocyst or peripancreatic hemorrhage not entirely excluded. Lab Data Labs: Laboratory Results - last 24 hr 10/14/24 10/14/24 10/14/24 02:52 02:52 02:52 WBC 6.3 RBC 3.51 L Hgb 12.0 Hct 34.9 L MCV 99.4 H MCH 34.2 H MCHC 34.4 RDW Std Deviation 77.2 H RDW Coeff of [place] 22.2 H Plt Count 214 MPV 9.2 Immature Gran % (Auto) 0.600 Neut % (Auto) 57.2 Lymph % (Auto) 26.2 [place] % (Auto) 11.0 H Eos % (Auto) 3.7 Baso % (Auto) 1.3 H Absolute Neuts (auto) 3.6 Absolute Lymphs (auto) 1.65 Nucleated RBC % 0.3 Stomatocytes 2+ PT 16.0 H INR 1.3 Sodium 132 L Potassium 3.9 Chloride 97 L Carbon Dioxide 22.4 Anion Gap 13 BUN 5 Creatinine 0.72 Estim Creat Clear Calc 93.85 Est GFR (MDRD) Non-Af 98 BUN/Creatinine Ratio 6.2 L Glucose 105 H Calcium 8.5 Total Bilirubin 7.28 H 7.32 H Direct Bilirubin 4.72 H AST 271 H 265 H ALT 70 H Alkaline Phosphatase Troponin T High Sens Troponin T Hi Sens 2 Hr Total Protein Albumin Globulin Albumin/Globulin Ratio Lipase Urine Color Urine Clarity Urine pH Ur Specific [place] Urine Protein Urine Glucose (UA) Urine Ketones Urine Occult Blood Urine Nitrite Urine Bilirubin Urine Urobilinogen Ur Leukocyte Esterase Urine RBC Urine WBC Ur Squamous Epith Cells Urine Bacteria Urine Mucus 10/14/24 10/14/24 10/14/24 02:52 02:52 02:52 WBC RBC Hgb Hct MCV MCH MCHC RDW Std Deviation RDW Coeff of [place] Plt Count MPV Immature Gran % (Auto) Neut % (Auto) Lymph % (Auto) [place] % (Auto) Eos % (Auto) Baso % (Auto) Absolute Neuts (auto) Absolute Lymphs (auto) Nucleated RBC % Stomatocytes PT INR Sodium Potassium Chloride Carbon Dioxide Anion Gap BUN Creatinine Estim Creat Clear Calc Est GFR (MDRD) Non-Af BUN/Creatinine Ratio Glucose Calcium Total Bilirubin Direct Bilirubin AST ALT 68 H Alkaline Phosphatase 263 H 261 H Troponin T High Sens 34 H Troponin T Hi Sens 2 Hr Total Protein 6.1 6.1 Albumin 3.0 L Globulin Albumin/Globulin Ratio Lipase Urine Color Urine Clarity Urine pH Ur Specific [place] Urine Protein Urine Glucose (UA) Urine Ketones Urine Occult Blood Urine Nitrite Urine Bilirubin Urine Urobilinogen Ur Leukocyte Esterase Urine RBC Urine WBC Ur Squamous Epith Cells Urine Bacteria Urine Mucus 10/14/24 10/14/24 10/14/24 02:52 02:52 03:36 WBC RBC Hgb Hct MCV MCH MCHC RDW Std Deviation RDW Coeff of [place] Plt Count MPV Immature Gran % (Auto) Neut % (Auto) Lymph % (Auto) [place] % (Auto) Eos % (Auto) Baso % (Auto) Absolute Neuts (auto) Absolute Lymphs (auto) Nucleated RBC % Stomatocytes PT INR Sodium Potassium Chloride Carbon Dioxide Anion Gap BUN Creatinine Estim Creat Clear Calc Est GFR (MDRD) Non-Af BUN/Creatinine Ratio Glucose Calcium Total Bilirubin Direct Bilirubin AST ALT Alkaline Phosphatase Troponin T High Sens Troponin T Hi Sens 2 Hr Total Protein Albumin 3.0 L Globulin 3.1 3.1 Albumin/Globulin Ratio 1.0 Lipase 112 H Urine Color Yellow Urine Clarity Clear Urine pH 7.0 Ur Specific [place] 1.010 Urine Protein 30 H Urine Glucose (UA) Normal Urine Ketones Negative Urine Occult Blood 10 H Urine Nitrite Negative Urine Bilirubin Negative Urine Urobilinogen 4 H Ur Leukocyte Esterase Negative Urine RBC 0 SEEN Urine WBC 0 SEEN Ur Squamous Epith Cells 0 SEEN Urine Bacteria 0 SEEN Urine Mucus 0 SEEN 10/14/24 04:58 WBC RBC Hgb Hct MCV MCH MCHC RDW Std Deviation RDW Coeff of [place] Plt Count MPV Immature Gran % (Auto) Neut % (Auto) Lymph % (Auto) [place] % (Auto) Eos % (Auto) Baso % (Auto) Absolute Neuts (auto) Absolute Lymphs (auto) Nucleated RBC % Stomatocytes PT INR Sodium Potassium Chloride Carbon Dioxide Anion Gap BUN Creatinine Estim Creat Clear Calc Est GFR (MDRD) Non-Af BUN/Creatinine Ratio Glucose Calcium Total Bilirubin Direct Bilirubin AST ALT Alkaline Phosphatase Troponin T High Sens Troponin T Hi Sens 2 Hr 19 H Total Protein Albumin Globulin Albumin/Globulin Ratio Lipase Urine Color Urine Clarity Urine pH Ur Specific [place] Urine Protein Urine Glucose (UA) Urine Ketones Urine Occult Blood Urine Nitrite Urine Bilirubin Urine Urobilinogen Ur Leukocyte Esterase Urine RBC Urine WBC Ur Squamous Epith Cells Urine Bacteria Urine Mucus Radiography Diagnostic Testing: Clinical Impression(s) from Imaging Studies Ribs w/Chest X-Ray 10/14/24 03:13 IMPRESSION: Anterolateral left 5th and 6th rib fracture deformities, correlate for age/focal tenderness. No pneumothorax or pleural effusion identified at this time. Reading Location: [id number] Abdomen/Pelvis CT 10/14/24 04:33 IMPRESSION: Diffusely atrophic appearing pancreas. Findings are consistent with pancreatitis with lobular soft tissue density surrounding majority of the tail of the pancreas measuring 5 x 6 x 5.3 cm axial 45, coronal 65 and sagittal 116 maybe related to peripancreatic fat necrosis/phlegmon with developing complex pseudocyst or peripancreatic hemorrhage not entirely excluded. Mild adjacent fat stranding, edema. Small amount of fluid along the upper greater curvature of the stomach left upper quadrant axial 31 and coronal 67. Enlarged, markedly fatty appearing liver again seen. The gallbladder is prominent size and may represent prolonged fasting state without evidence of wall thickening or pericholecystic stranding/inflammatory change or gallbladder fossa fluid seen. Reading Location: [id number] Discharge Plan Triage Chief Complaint: Chest Pain ED Provider: Alvino Mercado Dx/Rx/DC Orders Prescriptions: No Action omeprazole 40 mg capsule,delayed release(DR/EC) 40 mg PO DAILY levothyroxine 150 mcg tablet 150 mcg PO DAILY gabapentin 100 mg capsule 100 mg PO BID gabapentin 300 mg capsule 300 mg PO QHS PRN (Reason: pain) zolpidem 5 mg tablet 5 mg PO QHS PRN lorazepam [Ativan] 0.5 mg tablet 0.5 mg PO DAILY PRN (Reason: sleep) ondansetron 4 mg tablet,disintegrating 4 mg PO Q6H PRN PRN (Reason: Nausea) Qty: 15 0RF potassium chloride 20 mEq tablet extended release 20 meq PO BID Qty: 10 0RF Primary Care Provider: Magalie Morris NP Referrals: Magalie Morris NP, DIRECT MARKETING ANALYST-C [Primary Care Provider] - Print Language: French
[2024-10-14 03:39] LABS: Lipase 112 U/L (13-75)
[2024-10-14 03:47] LABS: Troponin T High Sensitivity 34 ng/L (<=14)
[2024-10-14 03:51] LABS: Bacteria 0 SEEN /hpf (None Seen); Mucous, Urine 0 SEEN /hpf (<or=2+); Squamous Epithelial Cells - UA 0 SEEN /hpf (5-10); White Blood Cells 0 SEEN /hpf (0-5)
[2024-10-14 03:55] LABS: Color, Urine Yellow (Yellow); Glucose, Dipstick Normal (Normal); Ketone-Dipstick Negative (Negative); Leukocyte Esterase-Dipstick Negative /ul (Negative); Nitrite-Dipstick Negative (Negative); Occult Blood-Urine 10 /ul (Negative); Protein-Dipstick 30 mg/dl (Negative); Urine Bilirubin Dipstick Negative (Negative); Urine Clarity Clear (Clear); Urine Urobilinogen 4 mg/dl (Normal)
[2024-10-14 04:03] LABS: AST(SGOT) 271 U/L (<=31); Alanine Aminotransfer ALT/SGPT 70 U/L (<=34); Alkaline Phosphatase 263 U/L (35-104); Anion Gap 13 (5-15); BUN 5 mg/dL (4-19); BUN/Creat Ratio 6.2 RATIO (10-20); Calcium,Total 8.5 mg/dL (7.6-11.0); Carbon Dioxide 22.4 mmol/L (21.0-32.0); Chloride 97 mmol/L (98-108); Creatinine, Serum 0.72 mg/dL (0.70-1.20); EST Glomerular Filtration Rate 98 (>60); Estimated Creatinine Clearance 93.85 ml/min (50-250); Globulin 3.1 g/dL (2.2-4.2); Glucose 105 mg/dL (70-99); Potassium 3.9 mmol/L (3.3-5.1); Protein, Total 6.1 g/dL (5.9-8.4); Sodium Level 132 mmol/L (133-145); Total Bilirubin 7.28 mg/dL (0.00-1.30)
[2024-10-14 04:04] LABS: Absolute Lymphocyte Count 1.65 X10^3/uL (0.83-4.51); Absolute Neutrophil Count 3.6 X10^3/uL (2.0-7.7); Basophil# 0.08 X10^3/uL; Basophil% 1.3 % (0-1); Differential Indicated SCAN CRITERIA MET; Eosinophil# 0.23 X10^3/uL; Eosinophils% 3.7 % (0-5); Hematocrit 34.9 % (37-47); Lymphocyte # 1.65 X10^3/ul (0.83-4.51); Lymphocyte % 26.2 % (19-41); Mean Corp Hgb Conc 34.4 g/dL (32-36); Mean Corpuscular Hgb 34.2 pg (27.0-32.0); Mean Corpuscular Volume 99.4 fL (81-99); Mean Platelet Vol. 9.2 fl (6.2-12.0); Monocyte# 0.69 X10^3/uL; NRBC Flagged by Analyzer 0.3 % (0-5); Neutrophil % 57.2 % (47-70); POSITIVE MORPHOLOGY YES; Platelet Count 214 K/mm3 (150-450); RBC Distribution Width CV 22.2 % (11.6-14.6); RBC Distribution Width SD 77.2 fl (35.1-43.9); Red Blood Count 3.51 M/mm3 (4.2-5.4); Stomatocyte 2+; White Blood Count 6.3 K/mm3 (4.4-11.0)
[2024-10-14 04:15] LABS: Red Blood Cells-Urine 0 SEEN /hpf (0-5)
--- NOTE | 2024-10-14 04:33 | CT_ITS ---
PROCEDURE: ABDOMEN/PELVIS W IV CONT ONLY 10/14/2024 REASON FOR EXAM: ELEVATED BILIRUBIN TECHNIQUE: CT of the abdomen and pelvis with contrast with coronal and sagittal reformatted images 95 cc Isovue 370 COMPARISON: 05/28/2024 FINDINGS: Dependent basilar atelectasis. Enlarged, markedly fatty appearing liver again seen. The gallbladder is prominent size and may represent prolonged fasting state without evidence of wall thickening or pericholecystic stranding/inflammatory change or gallbladder fossa fluid seen. The adrenal glands, kidneys and spleen appear within limits. Diffusely atrophic appearing pancreas. Findings are consistent with pancreatitis with lobular soft tissue density surrounding majority of the tail of the pancreas measuring 5 x 6 x 5.3 cm axial 45, coronal 65 and sagittal 116 maybe related to peripancreatic fat necrosis/phlegmon with developing complex pseudocyst or peripancreatic hemorrhage not entirely excluded. Mild adjacent fat stranding, edema. Small amount of fluid along the upper greater curvature of the stomach left upper quadrant axial 31 and coronal 67. No definite appearing vascular complication identified at this time. Abdominal aorta appears within limits without aneurysm. Aortoiliac atherosclerotic calcification noted. No adenopathy identified. No bowel dilation or free air. Normal caliber appendix without secondary signs. The ovaries appear within limits. Status post hysterectomy. The bladder appears within limits. No free fluid. L5-S1 spondylosis/discogenic change again noted. Right larger than left fat containing inguinal hernias again noted. Supraumbilical/periumbilical ventral fat containing hernia again noted. CT/Abdomen/Pelvis W IV Cont ONLY IMPRESSION: Diffusely atrophic appearing pancreas. Findings are consistent with pancreatiti s with lobular soft tissue density surrounding majority of the tail of the pancreas measuring 5 x 6 x 5.3 cm axial 45, coronal 65 and sagittal 116 maybe related to peripancreatic fat necrosis/phlegmon with developing complex pseudocyst or brody pancreatic hemorrhage not entirely excluded. Mild adjacent fat stranding, edema. Small amount of fluid along the upper greater c urvature of the stomach left upper quadrant axial 31 and coronal 67. Enlarged, markedly fatty appearing liver again seen. The gallbladder is promin ent size and may represent prolonged fasting state without evidence of wall thickening or pericholecystic stranding/inflammatory c hange or gallbladder fossa fluid seen. Reading Location: [id number]
[2024-10-14 05:32] LABS: Troponin T High Sens 2 HR 19 ng/L (<=14)
[2024-10-14 05:42] LABS: International Normalized Ratio 1.3
[2024-10-14 06:02] LABS: AST(SGOT) 265 U/L (<=31); Alanine Aminotransfer ALT/SGPT 68 U/L (<=34); Alkaline Phosphatase 261 U/L (35-104); Bilirubin, Direct 4.72 mg/dL (0.00-0.30); Globulin 3.1 g/dL (2.2-4.2); Protein, Total 6.1 g/dL (5.9-8.4); Total Bilirubin 7.32 mg/dL (0.00-1.30)
[2024-10-14] MEDS: 0.9% Normal Saline (1000mL) 1,000 ML 100 ML IV (06:36)
[2024-10-14] MEDS: Morphine 2 MG/ML Syringe IV (06:42)
--- NOTE | 2024-10-14 06:49 | ED.RN ---
CALLED [facility] @ [id number] TO TRANSFER PATIENT
--- NOTE | 2024-10-14 07:44 | ED.RN ---
KINJAL CALLED BACK AT [id number] WITH THE GI WILL GO TO [facility] OR [facility] WHICHEVER HAS A BED FIRST
[2024-10-14] MEDS: Ondansetron 4 MG/2 ML Vial IV (07:51)
[2024-10-14] MEDS: Morphine 4 MG/ML Syringe IV (07:53)
[2024-10-14 08:06] LABS: Alcohol, Blood (Medical)-Serum < 10.1 mg/dL (<=10.0)
--- NOTE | 2024-10-14 08:47 | ED.RN ---
KINJAL CALLED WITH A BED @ [id number] RIDE WILL BE HERE @ [id number] I WILL CANCEL [facility]
== END 2024-10-14 09:41 | disposition short-term general hospital (02) ==
LOC: ED 04:14
PROVIDERS: Emergency Provider Surgery; PCP Internal Medicine; Visit Provider Surgery
DX: S22.42XA Multiple fractures of ribs, left side, initial encounter for closed fracture (principal); K86.1 Other chronic pancreatitis; I10 Essential (primary) hypertension; Z90.710 Acquired absence of both cervix and uterus; Z87.891 Personal history of nicotine dependence; E80.7 Disorder of bilirubin metabolism, unspecified; R17 Unspecified jaundice; R07.9 Chest pain, unspecified; Z85.3 Personal history of malignant neoplasm of breast; W00.9XXA Unspecified fall due to ice and snow, initial encounter; E03.9 Hypothyroidism, unspecified; Z79.890 Hormone replacement therapy; Z90.10 Acquired absence of unspecified breast and nipple
CPT/HCPCS: 71101; 74177; 80053; 80076; 81001; 82077; 83690; 84484; 85025; 85610; 93005; 96361; 96374; 96375; 99285; Q9967; A4216; J2405

== ENCOUNTER 2025-02-03 23:49 | Emergency (ER) | payer MEDICAID, SELFPAY ==
[2025-02-03 23:53] VITALS: BP 117/75; PULSE 82; RESP 16; TEMP 35.9; O2SAT 100; BMI 36.4
[2025-02-04] VITALS (9 sets, daily range): BP systolic 95–122; BP diastolic 63–90; PULSE 85–92; RESP 12–20; TEMP 34.7–36; O2SAT 95–100
--- NOTE | 2025-02-04 00:19 | CT_ITS ---
PROCEDURE: ABDOMEN/PELVIS W IV CONT ONLY 02/04/2025 REASON FOR EXAM: JAUNDICE TECHNIQUE: ABDOMEN/PELVIS W IV CONT ONLY Coronal and Sagittal reconstruction series were provided. CONTRAST: Isovue 370 VOLUME: 90 mL One or more dose reduction techniques were used (e.g., Automated exposure control, adjustment of the mA and/or kV according to patient size, use of iterative reconstruction technique. RADIATION DOSE SUMMARY: CTDlvol: 21.82 mGy DLP: 1199.17 mGycm COMPARISON: 10/14/2024. FINDINGS: The lung bases are clear. Bilateral breast implants. Mild anasarca. Severely hypodense liver with somewhat heterogeneous attenuation suggestive of a fibrofatty process. Moderate volume ascites most pronounced in the right upper quadrant. Mild atherosclerosis. No suspicious lymphadenopathy. Atrophic pancreas. 9.4 x 8.0 cm pancreatic pseudocyst. The spleen is unremarkable. The adrenals are unremarkable. The kidneys are unremarkable. No hydroureteronephrosis. The urinary bladder is unremarkable. The reproductive organs are surgically absent. Normal caliber large and small bowel. Mild colonic wall thickening which may be reactive portal hypertension. Distended and hyperdense gallbladder. CT/Abdomen/Pelvis W IV Cont ONLY IMPRESSION: Pancreatic pseudocyst. Hypodense liver with heterogeneous attenuation suggestive of some component of cirrhosis. Nonemergent liver protocol CT or MRI is recommended to exclude an underlying process. Ascites. Colonic wall thickening which may be reactive to portal hypertension. Distended and hyperdense gallbladder which may be reactive. Reading Location: [place] [id number]
[2025-02-04] MEDS: 0.9% Normal Saline (1000mL) 1,000 ML 999 ML IV (00:27)
--- NOTE | 2025-02-04 00:28 | EX.ED.GENINJ ---
HPI History of Present Illness Chief Complaint: Nausea/Vomiting Narrative Narrative: Chief complaint and HPI: 54-year-old female with past medical history of alcoholic hepatitis, alcohol abuse presents for evaluation of nausea/vomiting and weakness. Patient is severely jaundice on physical exam. Patient states she did not know that she was yellow in color. Patient states she drinks about 4 to 5 glasses a day of vodka. Her last drink was around noon. States she started developing nausea and vomiting as well as weakness. she denies any fever, chills, shortness of breath, chest pain, diarrhea, constipation, abdominal pain, dysuria. Review of systems: See HPI Medications: As listed on the chart Allergies: As listed on the chart PFSH: Per chart Vital signs: As listed on the chart. Reviewed. Physical exam: Gen: A&O x3, NAD Head: Normocephalic, atraumatic Eyes: + Scleral icterus, PERRL ENT: Dry mucous membranes Neck: Trachea midline, No JVD CV: RRR, no murmurs, no peripheral edema Resp: Lungs CTA BL, no w/r/c GI: Abd soft, distended, non-tender, no r/r/g Musc: Full ROM, no deformity Skin: Warm, jaundice Neuro: Alert, oriented, grossly intact, sensation intact Psych: Cooperative, appropriate mood and affect [facility] Medical History Alcohol abuse History of breast cancer HTN (hypertension) Hypothyroid Home Medications ?Medication ?Instructions ?Recorded ?Last Taken ?Type omeprazole 40 mg capsule,delayed 40 mg PO DAILY GERD 12/02/20 05/27/24 History release levothyroxine 150 mcg tablet 150 mcg PO DAILY thyroid 02/20/24 05/27/24 History potassium chloride 20 mEq 20 meq PO BID supplement #10 tabs 05/28/24 Unknown Rx tablet,extended release zolpidem 5 mg tablet 5 mg PO QHS PRN sleep 05/28/24 Unknown History gabapentin 100 mg capsule 100 mg PO BID PRN nerve pain 10/14/24 Unknown History sertraline 25 mg tablet 25 mg PO QDAY 12/20/24 Unknown History hydrocodone-acetaminophen 5-325mg 1 - 2 tab PO Q8H PRN PRN pain 02/04/25 Unknown History 5mg-325mg lisinopril 10 mg tablet 10 mg PO DAILY 02/04/25 Unknown History Allergy/AdvReac Type Severity Reaction Status Date / Time Penicillins Allergy Hives Verified 12/20/24 10:04 Sulfa (Sulfonamide Allergy Hives Verified 12/20/24 10:04 Antibiotics) vancomycin Allergy Hives Verified 12/20/24 10:04 Family History Other Alcoholism Surgical History H/O mastectomy H/O: hysterectomy Social History Smoking Status: Former smoker EXAM Physical Exam Const Vital Signs: 02/03/25 23:53 02/04/25 00:08 02/04/25 00:33 Temperature 96.6 F L Temperature Source Axillary Pulse Rate 82 85 Respiratory Rate 16 16 Respiratory Effort Normal Respiratory Pattern Normal Blood Pressure 117/75 118/90 H Blood Pressure Mean 89 99 Blood Pressure Source Monitor Blood Pressure Position Semi-Fowlers Blood Pressure Location Right Arm Pulse Ox 100 95 Oxygen Delivery Method Room Air Room Air 02/04/25 01:38 02/04/25 01:45 02/04/25 02:00 Temperature 94.5 F L Temperature Source Core Pulse Rate 90 89 89 Respiratory Rate 12 14 Respiratory Effort Respiratory Pattern Blood Pressure 106/80 120/85 H 119/80 Blood Pressure Mean 88 96 93 Blood Pressure Source Blood Pressure Position Blood Pressure Location Pulse Ox 98 100 99 Oxygen Delivery Method Room Air Room Air Room Air 02/04/25 02:29 02/04/25 03:00 02/04/25 04:00 Temperature 94.6 F L 94.9 F L 96.0 F L Temperature Source Core Core Core Pulse Rate 92 86 88 Respiratory Rate 20 H 12 13 Respiratory Effort Respiratory Pattern Blood Pressure 122/81 H 105/73 97/69 Blood Pressure Mean 94 83 78 Blood Pressure Source Blood Pressure Position Blood Pressure Location Pulse Ox 97 100 100 Oxygen Delivery Method Room Air Room Air Room Air 02/04/25 04:47 02/04/25 05:00 Temperature 96.6 F L 96.8 F L Temperature Source Core Pulse Rate 90 89 Respiratory Rate 14 13 Respiratory Effort Respiratory Pattern Blood Pressure 101/66 95/63 Blood Pressure Mean 77 73 Blood Pressure Source Blood Pressure Position Blood Pressure Location Pulse Ox 97 96 Oxygen Delivery Method Room Air MDM MDM MDM Narrative Medical decision making narrative: 54-year-old female with past medical history of alcoholic hepatitis, alcohol abuse presents for evaluation of nausea/vomiting and weakness. Patient is severely jaundice on physical exam. Patient states she did not know that she was yellow in color. Her last drink was around noon. Denies abdominal pain, fever, chills. Differential diagnosis includes but is not limited to alcoholic cirrhosis, pancreatic mass, choledocholithiasis, alcohol withdrawal, dehydration, electrolyte abnormality. NS bolus ordered with laboratory workup including CT abdomen pelvis. CBC with mild leukocytosis 11.3. Patient has baseline anemia of 11.7. INR elevated at 2.4. Patient is not on anticoagulation. CMP shows acute hyponatremia at 117 and hypokalemia of 2.5. NS bolus running. IV potassium ordered. Magnesium level unremarkable. Patient has lactic acidosis of 5.4 with anion gap of 20. No JUAN DAVID. Suspect dehydration and alcoholic ketosis. Bilirubin elevated at 34, direct 23.9. AST is 267 and ALT is 74. Alkaline phosphatase 333. Ammonia elevated at 85.6. Patient is having nausea and vomiting therefore p.o. lactulose cannot be given. Lipase unremarkable. UA positive for UTI. Urine culture sent. Patient is hypothermic. Lorie hugger placed. She has made a sepsis alert given the findings above. Another NS bolus ordered but other than that we will be judicial with fluids as we do not want to increase the patient's sodium too quickly. Patient is not hypotensive. Patient has allergies to penicillin and vancomycin. Meropenem ordered. Alcohol level unremarkable. Urine drug screen positive for opiates. Troponin 17 in September it was 34. CT abdomen pelvis shows hypodense liver with heterogeneous attenuation she does have some component of cirrhosis. Ascites. Colonic wall thickening which may be reactive to portal hypertension. Distended hyperdense gallbladder which may be reactive. No common bile duct dilation. Pancreatic pseudocyst. Given patient's direct hyperbilirubinemia, concern is still for choledocholithiasis/acute cholangitis however I do not have ultrasound available to better assess this pathology. Patient is not endorsing any abdominal pain therefore this may be all just secondary to her cirrhosis. Chest x-ray was personally viewed interpreted by me, ED physician. No effusion, cardiomegaly, pneumothorax. Per radiology right apical midlung consolidative opacities, possible pneumonia. EKG was personally reviewed and interpreted by me, ED physician, normal sinus rhythm, heart rate 88, patient has prolonged QTc at 542. Patient will warrant admission. I spoke with the hospitalist service, they recommend transfer to a facility with hepatobiliary. Patient was updated of all the results of her and understand the plan. I reached out to [facility]. I spoke with Dr. Savage in the MICU physician. He is okay with patient going to a closer ICU such as [facility]. No need for hepatobiliary at this time. I spoke with Dr. Menjivar, [facility]. He accepted admission. Patient transferred via the critical care team. 45 minutes of critical care time utilized in managing the patient. This is due to high probability of and deterioration of the patient based on the patient's condition and excludes any separately billable procedures. Impression: 1. Alcoholic cirrhosis 2. Hyperbilirubinemia 3. Coagulopathy with elevated INR 4. Acute hyponatremia 5. Hypokalemia 6. Alcoholic ketosis 7. Dehydration 8. Hyperammonemia 9. Concern for sepsis 10. UTI 11. Possible right-sided pneumonia Lab Data Labs: Laboratory Results - last 24 hr 02/04/25 02/04/25 02/04/25 00:05 00:28 01:50 WBC 11.3 H RBC 3.43 L Hgb 11.7 L Hct 32.5 L MCV 94.8 MCH 34.1 H MCHC 36.0 RDW Std Deviation 81.5 H RDW Coeff of Beverly 24.2 H Plt Count 177 MPV 9.0 Neut % (Auto) Not Reportable Absolute Neuts (auto) 8.5 H Absolute Lymphs (auto) 0.80 L Total Counted 100 Neutrophils % (Manual) 75 H Band Neutrophils % 1 Lymphocytes % (Manual) 7 L Monocytes % (Manual) 11 H Basophils % (Manual) 1 Metamyelocytes % 5 H Platelet Estimate ADEQUATE PT 26.6 H INR 2.4 Sodium 117 L* Potassium 2.5 L* Chloride 77 L Carbon Dioxide 20.4 L Anion Gap 20 H BUN 3 L Creatinine 1.10 Estim Creat Clear Calc 61.99 Est GFR (MDRD) Non-Af 59 L BUN/Creatinine Ratio 2.5 L Glucose 128 H Lactic Acid 5.4 H* Calcium 8.5 Magnesium 2.0 Total Bilirubin 34.00 H* Direct Bilirubin 23.90 H AST 267 H ALT 74 H Alkaline Phosphatase 333 H Ammonia 85.6 H Troponin T High Sens 17 H D Troponin T Hi Sens 2 Hr Total Protein 6.3 Albumin 2.9 L Globulin 3.4 Lipase 56 Urine Color Brown Urine Clarity Cloudy Urine pH 6.5 Ur Specific Eldred 1.010 Urine Protein 30 H Urine Glucose (UA) Normal Urine Ketones Negative Urine Occult Blood 25 H Urine Nitrite Positive H Urine Bilirubin 6 H Urine Urobilinogen 8 H Ur Leukocyte Esterase 25 H Urine RBC 0 SEEN Urine WBC 10-25 SEEN Ur Squamous Epith Cells 5-10 SEEN Other Crystals 1+ Urine Bacteria 2+ Urine Mucus 0 SEEN Urine Opiates Screen PRESUMPTIVE POSITIVE U Buprenorphine Qual NEGATIVE Ur Oxycodone Screen NEGATIVE Urine Methadone Screen NEGATIVE Urine Fentanyl Screen NEGATIVE Ur Barbiturates Screen NEGATIVE Ur Phencyclidine Scrn NEGATIVE Ur Amphetamines Screen NEGATIVE U Benzodiazepines Scrn NEGATIVE Urine Cocaine Screen NEGATIVE U Cannabinoids Screen NEGATIVE Ethyl Alcohol < 10.1 02/04/25 02/04/25 04:15 04:42 WBC RBC Hgb Hct MCV MCH MCHC RDW Std Deviation RDW Coeff of Beverly Plt Count MPV Neut % (Auto) Absolute Neuts (auto) Absolute Lymphs (auto) Total Counted Neutrophils % (Manual) Band Neutrophils % Lymphocytes % (Manual) Monocytes % (Manual) Basophils % (Manual) Metamyelocytes % Platelet Estimate PT INR Sodium Potassium Chloride Carbon Dioxide Anion Gap BUN Creatinine Estim Creat Clear Calc Est GFR (MDRD) Non-Af BUN/Creatinine Ratio Glucose Lactic Acid 4.4 H* Calcium Magnesium Total Bilirubin Direct Bilirubin AST ALT Alkaline Phosphatase Ammonia Troponin T High Sens Troponin T Hi Sens 2 Hr 13 Total Protein Albumin Globulin Lipase Urine Color Urine Clarity Urine pH Ur Specific Eldred Urine Protein Urine Glucose (UA) Urine Ketones Urine Occult Blood Urine Nitrite Urine Bilirubin Urine Urobilinogen Ur Leukocyte Esterase Urine RBC Urine WBC Ur Squamous Epith Cells Other Crystals Urine Bacteria Urine Mucus Urine Opiates Screen U Buprenorphine Qual Ur Oxycodone Screen Urine Methadone Screen Urine Fentanyl Screen Ur Barbiturates Screen Ur Phencyclidine Scrn Ur Amphetamines Screen U Benzodiazepines Scrn Urine Cocaine Screen U Cannabinoids Screen Ethyl Alcohol Radiography Diagnostic Testing: Clinical Impression(s) from Imaging Studies Abdomen/Pelvis CT 02/04/25 00:19 IMPRESSION: Pancreatic pseudocyst. Hypodense liver with heterogeneous attenuation suggestive of some component of cirrhosis. Nonemergent liver protocol CT or MRI is recommended to exclude an underlying process. Ascites. Colonic wall thickening which may be reactive to portal hypertension. Distended and hyperdense gallbladder which may be reactive. Reading Location: [id number] Chest X-Ray 02/04/25 03:15 IMPRESSION: Pulmonary findings as above. Reading Location: [id number] Discharge Plan Triage Chief Complaint: Nausea/Vomiting ED Provider: Alvino Mercado Dx/Rx/DC Orders Prescriptions: No Action sertraline 25 mg tablet 25 mg PO QDAY omeprazole 40 mg capsule,delayed release(DR/EC) 40 mg PO DAILY levothyroxine 150 mcg tablet 150 mcg PO DAILY gabapentin 100 mg capsule 100 mg PO BID PRN (Reason: nerve pain) lisinopril 10 mg tablet 10 mg PO DAILY hydrocodone-acetaminophen 5-325 mg tablet 1 - 2 tab PO Q8H PRN PRN (Reason: pain) zolpidem 5 mg tablet 5 mg PO QHS PRN potassium chloride 20 mEq tablet extended release 20 meq PO BID Qty: 10 0RF Primary Care Provider: Magalie Morris NP Referrals: Magalie Morris NP, [facility] [Primary Care Provider] - Print Language: Thai Disposition Disposition: Acute Care Hospital Discharge Location: [facility] Discharge Date/Time: 02/04/25 05:33
--- OUTSIDE RECORDS SUMMARY | 2025-02-04 00:32 | XMS RPT_ITS | CCD ---
Author Organization [facility] Care Team Providers Care Pulp Refiner Operator Name Role Phone TERESA, DEBBIE L Unavailable Unavailable MIRZA, NABILA Unavailable Unavailable MIRZA, NABILA Unavailable Unavailable TERESA, DEBBIE Unavailable Unavailable MIRZA, NABILA Unavailable Unavailable KUMAR, RAVEN Unavailable Unavailable TERESA, DEBBIE Unavailable Unavailable ANITA, ABEL B Unavailable Unavailable NAITA, ABEL B Unavailable Unavailable ANITA, ABEL B Unavailable Unavailable ANITA, ABEL B Unavailable Unavailable ANITA, ABEL B Unavailable Unavailable ANITA, ABEL B Unavailable Unavailable ANITA, ABEL B Unavailable Unavailable ANITA, ABEL B Unavailable Unavailable ANITA, ABEL B Unavailable Unavailable ANITA, ABEL B Unavailable Unavailable ANITA, ABEL B Unavailable Unavailable ANITA, ABEL B Unavailable Unavailable ADVENTISM, NANCY Unavailable Unavailabl e ADVENTISM, NANCY Unavailable Unavailabl e ANITA, ABEL B Unavailable Unavailable ANITA, ABEL B Unavailable Unavailable SELF, SELF Unavailable Unavailable TERESA, DEBBIE L Unavailable Unavailable ANITA, ABEL B Unavailable Unavailable NAITA, ABEL B Unavailable Unavailable TERESA, DEBBIE L Unavailable Unavailable SARDESAI GARCIA D Unavailable Unavailable SELF, SELF Unavailable Unavailable TERESA, DEBBIE L Unavailable Unavailable Chintan MECHANICAL ENGINEERING ADVISOR.Alirio BERNAL Primary Care Provider [phone] Generic Provider MD, No Assigned Pcp Primary Car e Provider Unavailable Chintan MECHANICAL ENGINEERING ADVISOR.Alirio BERNAL Primary Care Provider [phone] POLLO VERMA Attending Unavailable GENERIC PROVIDER, NO ASSIGNED PCP Primary Care Unavailable Chintan MECHANICAL ENGINEERING ADVISOR.Alirio BERNAL Primary Care Provider [phone] CHINTAN JANE-ALIRIO BERNAL Primary Care Physicia n Chintan STEWARD/STEWARDESS BATH-Alirio Peng Primary Care Provider [phone] CaterinaDr. Alvino Gamble DO Emergency Provider Dalia CRUZ, Dr. Razo Admit Provider Dalia CRUZ, Dr. Razo Other Provider Clarice SOMMERS, Dr. Ash Lr Attending Provider Dalia CRUZ, Dr. Razo Attending Provider Clarice SOMMERS, Dr. Ash Lr Other Provider JIN SOMMERS, DR SILVESTRE Consulting Unavailabl e CHINTAN MECHANICAL ENGINEERING ADVISOR-ELECTRICAL INTEGRATOR, ALIRIO MARGARITA Primary Care Unava ilable FERNANDO SOMMERS, RUBEN Admitting Unavailabl e LORNE SOMMERS, APOORVA Attending Unavaila ble Chintan STEWARD/STEWARDESS BATH-C, Alirio Primary Care Provider Jess CRUZ, Dr. De Oliveira Attending Provider Jess CRUZ, Dr. De Oliveira Emergency Provider Chintan STEWARD/STEWARDESS BATH-C, Alirio Referring Provider Levi SOMMERS, Dr. Vera Attending Provider CHINTAN, ALIRIO Referring Unavailable CHINTAN, ALIRIO Primary Care Unavailable CHINTAN, ALIRIO Referring Unavailable CHINTAN, ALIRIO Primary Care Unavailable CHINTAN, ALIRIO Referring Unavailable CHINTAN, ALIRIO Primary Care Unavailable CHINTAN, ALIRIO Attending Unavailable CHINTAN, ALIRIO Primary Care Unavailable CHINTAN, ALIRIO Attending Unavailable CHINTAN, ALIRIO Primary Care Unavailable CHINTAN, ALIRIO Referring Unavailable CHINTAN, ALIRIO Primary Care Unavailable CHINTAN, ALIRIO Attending Unavailable CHINTAN, ALIRIO Primary Care Unavailable CHINTAN, ALIRIO Referring Unavailable CHINTAN, ALIRIO Primary Care Unavailable CHINTAN, ALIRIO Attending Unavailable CHINTAN, ALIRIO Primary Care Unavailable CHINTAN, ALIRIO Attending Unavailable CHINTAN, ALIRIO Primary Care Unavailable CHINTAN, ALIRIO Referring Unavailable CHINTAN, ALIRIO Primary Care Unavailable Chintan STEWARD/STEWARDESS BATH, Alirio Primary Care Unavailable Chintan STEWARD/STEWARDESS BATH, Alirio Referring Unavailable Chuy Sims Attending Unavailable Chintan STEWARD/STEWARDESS BATH, Alirio Primary Care Unavailable Corby Brooks Attending Unavailable Corby Brooks Consulting Unavailable Corby Brooks Admitting Unavailable Ash Oneil Attending Unavailable Dung Gómez Consulting Unavailable Dung Gómez Admitting Unavailable Chintan STEWARD/STEWARDESS BATH, Alirio Primary Care Unavailable Ash Oneil Consulting Unavailable Ash Oneil Attending Unavailable Dalia, Dung Consulting Unavailable Shielaeri, Dung Admitting Unavailable Chintan STEWARD/STEWARDESS BATH, Alirio Primary Care Unavailable Alvino Mercado Attending Unavailabl e Chintan STEWARD/STEWARDESS BATH, [place] Primary Care Unavailable Peter Hernandez Attending Unavailable Chintan STEWARD/STEWARDESS BATH, [place] Primary Care Unavailable Ash Oneil Attending Unavailable Chintan STEWARD/STEWARDESS BATH, [place] Primary Care Unavailable Corby Brooks Consulting Unavailable Corby Brooks Admitting Unavailable KitMichael valencia Consulting Unavailable Erin, Jayaprakas Consulting Unavailable Dung Gómez Attending Unavailable Chintan STEWARD/STEWARDESS BATH, [place] Primary Care Unavailable Ash Oneil Attending Unavailable Lakisha, Michael Consulting Unavailable Erin, Jayaprakas Consulting Unavailable Ash Oneil F Consulting Unavailable Allergies Allergy Classification Reported Allergen(s) Allergy Type Date of Onset Reaction(s) Facility (20 sources) banana extract; Translations: [BANANA] Drug Allergy 8 [facility] Repository (4 sources) erythromycin; Translations: [ERYTHROMYCIN] Drug Allergy 3 Nausea/vomiting , Weal (disorder) [facility] Repository (1 source) levoFLOXacin; Translations: [LEVOFLOXACIN] Drug Allergy 7 [facility] Repository (20 sources) Penicillins; Translations: [PENICILLINS] Propensity to adverse reactions to drug (disorder) 3 [facility] Repository (20 sources) Sulfonamides (Antibiotic); Translations: [SULFA (SULFONAMIDE ANTIBIOTICS)] Propensity to adverse reactions to drug (disorder) 3 [facility] Repository (1 source) LINEZOLID IN DEXTROSE 5%; Translations: [LINEZOLID IN DEXTROSE 5%] Propensity to adverse reactions to drug (disorder) 8 [facility] Repository (5 sources) Azithromycin; Translations: [AZITHROMYCIN] Drug Allergy 3 Nausea/vomiting [facility] (20 sources) linezolid; Translations: [LINEZOLID] Drug Allergy 3 Swelling, Anaphylaxis [facility] (20 sources) Vancomycin; Translations: [vancomycin] Drug Allergy 3 Other: See Comments [facility] (3 sources) dextrose 5 % in water Allergy to substance 3 [facility] (2 sources) Sulfur; Translations: [SULFUR] Drug Allergy 4 [facility] Work Phone: (1 source) Penicillin; Translations: [penicillin] Drug Allergy Weal (disorder) [facility] (1 source) Sulfonamide; Translations: [sulfa drugs] Drug allergy Weal (disorder) [facility] (1 source) Vancomycin Drug Allergy 5 [facility] Repository Medications Current Medications Medication Drug Class(es) Dates Sig (Normalized) Sig (Original) acetaminophen 325 mg / HYDROcodone bitartrate 5 mg oral tablet (9 sources) Opioid Agonist Start: 01-15-2025 End: 01-29-2025 take 1-2 tablets by mouth every eight hours as needed for pain HYDROcodone-acetami nophen (NORCO) 5-325 mg per tablet Indications: Chronic pancreatitis, unspecified pancreatitis type (HCC) , Closed fracture of multiple ribs of left side with routine healing, subsequent encounter Take 1-2 tablets by mouth every 8 hours as needed for pain for up to 14 days. 42 tablet 01/15/2025 01/29/2025 Active Start: 12-15-2024 End: 01-08-2025 take 1-2 tablets by mouth every eight hours as needed for pain HYDROcodone-acetaminophen (NORCO) 5-325 mg per tablet Indications: Chronic pancreatitis, unspecified pancreatitis type (HCC) , Closed fracture of multiple ribs of left side with routine healing, subsequent encounter Take 1-2 tablets by mouth every 8 hours as needed for pain for up to 14 days. 42 tablet 12/25/2024 01/08/2025 Active Start: 09-07-2022 End: 02-20-2024 Hydrocodone-Acetaminophen 5- 325 mg tablet Discontinued 1 {tbl} PO EVERY 4 HOURS NEEDED as needed for Pain 10 2 September 07, 2022 February 20, 2024 2:56am Start: 09-07-2022 take 1 tablet by sheila th every four hours as needed Hydrocodone-Acetaminophen Active 1 TABLE T PO EVERY 4 HOURS NEEDED 10 September 07, 2022 amylase 96704 unt / lipase 3000 unt / protease 9500 unt delayed release oral capsule (10 sources) Start: 11-03-2024 take 1 capsule by mouth three times daily at mealtime [id number] (CREON) 3,000-9,500- 15,000 unit delayed release capsule Indications: Acute pancreatitis, unspecified complication status, unspecified pancreatitis type (HCC) Take 1 capsule by mouth three times a day with meals. 280 capsule 1 11/03/2024 Active cefdinir 300 mg oral capsule (2 sources) Cephalosporin Antibacterial Start: 06-02-2024 End: 06-12-2024 take 1 capsule by mouth twice daily cefdinir (OMNICEF) 300 mg capsule Indications: Acute pancreatitis without infection or necrosis, unspecified pancreatitis type , Nausea and vomiting, unspecified vomiting type Take 1 capsule by mouth two times a day for 10 days. 20 capsule 06/02/2024 06/12/2024 Active diazePAM 5 mg/ml injectable solution (1 source) Benzodiazepine Start: 08-21-2023 diazePAM (Valium) injection 10 mg famotidine 20 mg oral tablet (1 source) Histamine-2 Receptor Antagonist famotidine (Pepcid) 20 mg tablet Take 1 tablet (20 mg) by mouth if needed for heartburn. 0 Active gabapentin 100 mg oral capsule (12 sources) Anti-epileptic Agent Start: 10-14-2024 take 1 capsule by mouth twice daily Gabapentin 100 mg capsule Active 100 mg PO TWICE A DAY October 14, 2024 12:00am Start: 10-14-2024 take 1 capsule by mo [facility] at bedtime as needed for pain Gabapentin 300 mg capsule Active 300 mg PO AT BEDTIME as needed for pain October 14, 2024 12:00am Start: 12-01-2022 End: 12-29-2022 take 1 capsule by mouth once daily gabapentin (NEURONTIN) 100 mg capsule Indications: Closed fracture of right ankle with delayed healing, subsequent encounter Take 1 capsule by mouth once daily. 0 12/01/2022 12/29/2022 Discontinued Start: 12-01-2022 End: 12-29-2022 take 1 capsule by mouth once daily at bedtime gabapentin (NEURONTIN) 300 mg capsule Indications: Closed fracture of right ankle with delayed healing, subsequent encounter Take 1 capsule by mouth daily at bedtime. 0 12/01/2022 12/29/2022 Discontinued Comment on above: Take 1 capsule by mo [facility] once daily. Take 1 capsule by mo [facility] daily at bedtime. hydroCHLOROthiazide 12.5 mg oral capsule (20 sources) Thiazide Diuretic Start: 2023 End: 2024 take 1 capsule by mouth once daily hydroCHLOROthiazide 12.5 mg capsule Indications: Primary hypertension Take 1 capsule by mouth once daily. 90 capsule 3 10/20/2024 Active Start: 06-28-2023 End: 12-07-2023 take 1 tablet by mouth once daily hydroCHLOROthiazide 50 mg tablet Indications: Primary hypertension Take 1 tablet by mouth once daily. 90 tablet 3 06/28/2023 12/07/2023 Discontinued Start: 03-10-2023 take 0.5 tablet by m [facility] once daily hydroCHLOROthiazide 50 mg tablet Indications: Primary hypertension Take 0.5 tablets by mouth once daily. 90 tablet 1 03/10/2023 Active Start: 12-29-2022 End: 03-10-2023 take 1 tablet by mouth once daily hydroCHLOROthiazide 50 mg tablet Indications: Primary hypertension Take 1 tablet by mouth once daily. 90 tablet 1 12/29/2022 03/10/2023 Discontinued Start: 12-02-2022 End: 12-29-2022 take 1 tablet by mouth once daily hydroCHLOROthiazide 25 mg tablet Indications: Primary hypertension Take 1 tablet by mouth once daily. 30 tablet 3 12/02/2022 12/29/2022 Discontinued Start: 12-02-2020 End: 12-04-2020 take 1 tablet by mouth once daily Hydrochlorothiazide 50 mg Tablet Discontinued 50 mg PO DAILY December 02, 2020 12:00am December 04, 2020 1:02pm Comment on above: Take 25 mg by mouth once daily. Take 1 tablet by sheila once daily. Take 0.5 tablets by mouth once daily. Lactulose (11 sources) Osmotic Laxative Start: 10-24-2024 lactulose 20 gram/30 mL solution Indications: Jaundice , Acute pancreatitis, unspecified complication status, unspecified pancreatitis type (HCC) Take 30 mL by mouth three times a day. Start with 20 g 3 times daily. Can reduce to 2 times daily if having more than 2 to 3 soft stools/day. 2700 mL 2 10/24/2024 Active Start: 10-24-2024 lactulose 20 g rosalva/30 mL solution Indications: Jaundice , Acute pancreatitis, unspecified complication status, unspecified pancreatitis type (HCC) Take 30 mL by mouth three times a day. Start with 20 g 3 times daily. Can reduce to 2 times daily if having more than 2 to 3 soft stools/day. 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 Take on empty stomach. 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 Take on empty stomach. For thyroid 90 tablet 3 10/20/2024 01/12/2025 Discontinued Start: 12-30-2022 End: 03-10-2023 take 1 tablet by mouth once daily for thyroid dysfunction levothyroxine (SYNTHROID) 112 mcg tablet Take 1 tablet by mouth once daily. Take on empty stomach. 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 30 Each 3 12/04/2022 12/30/2022 Discontinued Start: 12-02-2020 End: 02-20-2024 take 1 capsule by mouth once daily Levothyroxine 137 mcg Capsule Discontinued 137 ug PO DAILY December 02, 2020 12:00am February 20, 2024 2:56am Comment on above: Take 1 capsule by mo [facility] once daily. Take 1 capsule by mo [facility] daily before breakfast. Take 1 tablet by sheila once daily. Take on empty stomach. For thyroid LORazepam 0.5 mg oral tablet (2 sources) Benzodiazepine Start: 4 take 1 tablet by mouth once daily as needed for sleep Lorazepam (Ativan) 0.5 mg tablet Active 0.5 mg PO DAILY as needed for sleep May 28, 2024 12:00am nystatin 528689 unt/ml topical cream (20 sources) Polyene Antifungal Start: nystatin (MYCOSTATIN) cream Indications: Yeast dermatitis Apply to affected area twice daily. 30 g 3 03/10/2023 Active Comment on above: Apply to affected ar ea twice daily. omeprazole 40 mg delayed release oral capsule (20 sources) Proton Pump Inhibitor Start: take 1 capsule by mouth once daily omeprazole (PRILOSEC) 40 mg capsule Take 1 capsule by mouth once daily. 90 capsule 2 01/15/2025 Active Start: 12-02-2020 End: 01-11-2025 take 1 capsule by mouth once daily omeprazole (PRILOSEC) 40 mg capsule Take 1 capsule by mouth once daily. 90 capsule 2 08/21/2024 01/11/2025 Discontinued Comment on above: Take 1 capsule by [facility] once daily. oxyCODONE hydrochloride 5 mg oral tablet (12 sources) Opioid Agonist Start: End: take 1 tablet by mouth every eight hours as needed for pain oxyCODONE IR (ROXICODONE) 5 mg immediate release tablet Indications: Closed fracture of multiple ribs of left side with routine healing, subsequent encounter , Acute pancreatitis without infection or necrosis, unspecified pancreatitis type (HCC) Take 1 tablet by mouth every 8 hours as needed for pain for up to 7 days. 21 tablet 12/08/2024 12/15/2024 Active Start: 11-22-2024 End: 11-29-2024 take 1 tablet by mouth every eight hours as needed for pain oxyCODONE IR (ROXICODONE) 5 mg immediate release tablet Indications: Closed fracture of multiple ribs of left side with routine healing, subsequent encounter , Acute pancreatitis without infection or necrosis, unspecified pancreatitis type (HCC) Take 1 tablet by mouth every 8 hours as needed for pain for up to 7 days. 21 tablet 11/22/2024 11/29/2024 Active Start: 11-07-2024 End: 11-14-2024 take 1 tablet by mouth every eight hours as needed for pain oxyCODONE IR (ROXICODONE) 5 mg immediate release tablet Indications: Closed fracture of multiple ribs of left side with routine healing, subsequent encounter , Acute pancreatitis without infection or necrosis, unspecified pancreatitis type (HCC) Take 1 tablet by mouth every 8 hours as needed for pain for up to 7 days. 21 tablet 11/07/2024 11/14/2024 Active Start: 10-20-2024 End: 10-27-2024 take 1 tablet by mouth every eight hours as needed for pain oxyCODONE IR (ROXICODONE) 5 mg immediate release tablet Indications: Closed fracture of multiple ribs of left side with routine healing, subsequent encounter , Acute pancreatitis without infection or necrosis, unspecified pancreatitis type (HCC) Take 1 tablet by mouth every 8 hours as needed for pain for up to 7 days. 21 tablet 10/20/2024 10/27/2024 Active Start: 05-30-2024 End: 06-04-2024 oxyCODONE IR (ROXICODONE) 5 mg immediate release tablet Indications: Acute pancreatitis without infection or necrosis, unspecified pancreatitis type Take 1 tablet by mouth every 4 hours as needed for pain for up to 5 days. Patient should start on May 30, 2024. 30 tablet 05/30/2024 06/04/2024 Active Start: 05-28-2024 End: 07-24-2024 take 1 tablet by mouth every six hours as needed for pain Oxycodone 5 mg tablet Discontinued 5 mg PO EVERY 6 HOURS as needed for pain 12 May 28, 2024 July 24, 2024 3:14pm microencapsulated potassium chloride 20 meq extended release oral tablet (20 sources) Start: 11-21-2024 take 1 tablet by mouth once daily potassium chloride ER (KLOR-CON M20) 20 mEq tablet Take 1 tablet by mouth once daily. 30 tablet 2 11/21/2024 Active Start: 05-28-2024 take 1 tablet by sheila twice daily Potassium Chloride 20 mEq tablet extended release Active 20 meq PO TWICE A DAY May 28, 2024 12:00am Start: 12-07-2023 End: 11-21-2024 potassium chloride SR (MICRO -K) 10 mEq CR capsule Take 2 capsules by mouth once daily. 180 capsule 2 08/21/2024 11/21/2024 Discontinued Start: 02-02-2023 End: 12-07-2023 take 1 tablet by mouth once daily potassium chloride ER (KLOR-CON) 20 mEq tablet Indications: Low blood potassium Take 1 tablet by mouth once daily. 90 tablet 2 02/02/2023 12/07/2023 Discontinued Start: 12-29-2022 End: 02-02-2023 take 1 tablet by mouth once daily at breakfast potassium chloride (K-TAB) 10 mEq tablet Indications: Low blood potassium Take 1 tablet by mouth daily with breakfast. 90 tablet 1 01/08/2023 02/02/2023 Discontinued Comment on above: Take 1 tablet by sheila th daily with breakfast. Take 1 tablet by sheila th once daily. promethazine hydrochloride 25 mg oral tablet (20 sources) Phenothiazine Start: 01-16-20 take 1 tablet by mouth every six hours as needed for nausea promethazine (PHENERGAN) 25 mg tablet Indications: Acute pancreatitis without infection or necrosis, unspecified pancreatitis type (HCC) , Nausea and vomiting, unspecified vomiting type Take 1 tablet by mouth every 6 hours as needed for nausea/vomiting. 90 tablet 1 01/15/2025 Active Start: 05-29-2024 End: 01-12-2025 take 1 tablet by mouth every six hours as needed for nausea promethazine (PHENERGAN) 25 mg tablet Indications: Acute pancreatitis without infection or necrosis, unspecified pancreatitis type (HCC) , Nausea and vomiting, unspecified vomiting type Take 1 tablet by mouth every 6 hours as needed for nausea/vomiting. 90 tablet 1 10/20/2024 01/12/2025 Discontinued sertraline 25 mg oral tablet (5 sources) Serotonin Reuptake Inhibitor Start: 12-15-2024 take 1 tablet by mouth once daily sertraline (ZOLOFT) 25 mg tablet Indications: Dysthymic disorder Take 1 tablet by mouth once daily. 30 tablet 2 12/15/2024 Active traMADol hydrochloride 50 mg oral tablet (5 sources) Opioid Agonist Start: 09-01-2024 End: 09-08-2024 take 1 tablet by mouth every eight hours as needed for pain traMADol (ULTRAM) 50 mg tablet Indications: Closed fracture of right ankle with delayed healing, subsequent encounter Take 1 tablet by mouth every 8 hours as needed for pain for up to 7 days. 21 tablet 09/01/2024 09/08/2024 Active Start: 06-12-2024 End: 06-19-2024 take 1 tablet by mouth every eight hours as needed for pain traMADol (ULTRAM) 50 mg tablet Indications: Closed fracture of right ankle with delayed healing, subsequent encounter Take 1 tablet by mouth every 8 hours as needed for pain for up to 7 days. 21 tablet 06/12/2024 06/19/2024 Active Start: 03-08-2024 End: 03-15-2024 take 1 tablet by mouth every eight hours as needed for pain traMADol (ULTRAM) 50 mg tablet Indications: Closed fracture of right ankle with delayed healing, subsequent encounter Take 1 tablet by mouth every 8 hours as needed for pain for up to 7 days. 21 tablet 0 03/08/2024 03/15/2024 Active Start: 12-07-2023 End: 12-14-2023 take 1 tablet by mouth every eight hours as needed for arthritis and arthritis traMADol (ULTRAM) 50 mg tablet Indications: Arthritis Take 1 tablet by mouth every 8 hours as needed for pain for up to 7 days. 21 tablet 0 12/07/2023 12/14/2023 Active zolpidem tartrate 5 mg oral tablet (20 sources) gamma-Aminobutyric Acid-ergic Agonist Start: 02-08-2024 End: 03-15-2025 take 1 tablet by mouth at bedtime as needed zolpidem (AMBIEN) 5 mg tablet Indications: Other insomnia Take 1 tablet by mouth at bedtime as needed for up to 90 days. 30 tablet 2 12/15/2024 03/15/2025 Active Start: 06-28-2023 End: 02-08-2024 take 1 tablet by mouth at bedtime as needed zolpidem (AMBIEN) 5 mg tablet Indications: Other insomnia Take 1 tablet by mouth at bedtime as needed for up to 60 days. 30 tablet 1 12/07/2023 02/08/2024 Discontinued Comment on above: Take 1 tablet by sheila th at bedtime as needed for up to 60 days. Completed/Discontinued Medications Medication Drug Class(es) Dates Sig (Normalized) Sig (Original) 12 hr buPROPion hydrochloride 150 mg extended release oral tablet (5 sources) Aminoketone Start: 08-16-202 3 take 1 tablet by mouth twice daily buPROPion SR (WELLBUTRIN SR) 150 mg 12 hr tablet Take 1 tablet by mouth twice daily. 60 tablet 3 03/10/2023 Active Comment on above: Take 1 tablet by [facility] twice daily. DULoxetine 20 mg delayed release oral capsule (11 sources) Serotonin and Norepinephrine Reuptake Inhibitor Start: 3 End: 3 take 1 capsule by mouth once daily DULoxetine (CYMBALTA) 20 mg capsule Indications: Dysthymic disorder Take 1 capsule by mouth once daily. 90 capsule 1 12/29/2022 03/10/2023 Discontinued Comment on above: Take 1 capsule by [facility] once daily. folic acid 1 mg oral tablet (2 sources) Start: 4 End: 4 folic acid (Folvite) tablet 1 mg hydroCHLOROthiazide 25 mg / lisinopril 20 mg oral tablet (7 sources) Thiazide Diuretic, Angiotensin Converting Enzyme Inhibitor Start: 4 End: 4 Lisinopril-Hydroch lorothiazide 20-25 mg tablet Discontinued 1 {tbl} PO DAILY February 20, 2024 12:00am February 23, 2024 9:11am lisinopril 40 mg oral tablet (20 sources) Angiotensin Converting Enzyme Inhibitor Start: 1 End: 4 take 1 tablet by mouth once daily Lisinopril 40 mg Tablet Discontinued 40 mg PO DAILY December 02, 2020 12:00am February 20, 2024 2:56am Comment on above: Take 1 tablet by [facility] once daily. multivitamin with minerals 1 tablet (1 source) Start: 4 End: 4 multivitamin with minerals 1 tablet nabumetone 500 mg oral tablet (20 sources) Nonsteroidal Anti-inflammatory Drug End: 5 take 1 tablet by mouth twice daily nabumetone (RELAFEN) 500 mg tablet Indications: Arthritis Take 500 mg by mouth twice daily. 10/20/2024 Discontinued Comment on above: Take 500 mg by mouth twice daily. ondansetron 4 mg disintegrating oral tablet (3 sources) Serotonin-3 Receptor Antagonist Start: 4 End: 4 take 1 tablet by mouth every eight hours as needed ondansetron orally disintegrating (ZOFRAN ODT) 4 mg disintegrating tablet Take 4 mg by mouth every 8 hours as needed. 05/28/2024 05/29/2024 Discontinued Start: 05-28-2024 take 1 tablet by sheila th every six hours as needed for nausea Ondansetron 4 mg tablet,disintegrating Active 4 mg PO EVERY 6 HOURS NEEDED as needed for Nausea May 28, 2024 12:00am 24 hr phentermine 15 mg / topiramate 92 mg extended release oral capsule (17 sources) Sympathomimetic Amine Anorectic Start: 05-28-2024 End: 05-28-2024 Phentermine-Topiramate [Phentermine 15 Mg-Topiramate Er 92 Mg Capsule,Ext.[id number] Multphas] (Phentermine 15 Mg-Topiramate Er 92 Mg ) 15-92 mg capsule, ER multiphase 24 hr Discontinued 1 NMA PO DAILY May 28, 2024 12:00am May 28, 2024 8:34am Start: 04-18-2024 End: 07-18-2024 take 1 capsule by mouth once daily phentermine-topiramate ER (QSYMIA) 15-92 mg 24 Hr Capsule Indications: Obesity, Class I, BMI 30-34.9 Take 1 capsule by mouth once daily for 90 days. 30 capsule 2 04/19/2024 06/02/2024 Discontinued Start: 05-07-2023 End: 08-12-2023 take 1 capsule by mouth once daily phentermine-topiramate ER (QSYMIA) 11.25-69 mg 24 Hr Capsule Indications: Obesity, Class III, BMI 40-49.9 (morbid obesity) (HCC) Take 1 capsule by mouth once daily for 90 days. 30 capsule 2 05/14/2023 08/12/2023 Active Start: 03-10-2023 End: 05-09-2023 take 1 capsule by mouth once daily phentermine-topiramate ER (QSYMIA) 7.5-4 6 mg 24 Hr Capsule Indications: Obesity, Class III, BMI 40-49.9 (morbid obesity) (HCC) Take 1 capsule by mouth once daily for 60 days. 30 capsule 1 03/10/2023 05/07/2023 Discontinued Start: 02-02-2023 End: 03-10-2023 take 1 capsule by mouth once daily phentermine-topiramate ER (QSYMIA) 3.75-23 mg 24 Hr Capsule Indications: Obesity, Class III, BMI 40-49.9 (morbid obesity) (HCC) Take 1 capsule by mouth once daily for 30 days. 30 capsule 0 02/15/2023 03/10/2023 Discontinued Comment on above: Take 1 capsule by mo ut once daily for 30 days. Take 1 capsule by mo ut once daily for 60 days. Take 1 capsule by mo ut once daily for 90 days. 1000 ml sodium chloride 9 mg/ml injection (1 source) Start: 4 End: 4 sodium chloride 0.9 % bolus 1,000 mL thiamine 100 mg oral tablet (2 sources) Start: 4 End: 5 thiamine (Vitamin B-1) tablet 100 mg tiZANidine 4 mg oral capsule (18 sources) Central alpha-2 Adrenergic Agonist Start: 3 End: 4 tiZANidine HCl (ZANAFLEX) 4 mg capsule Indications: Closed fracture of right ankle with delayed healing, subsequent encounter , Arthritis Take 1 capsule by mouth as needed. 0 09/09/2022 12/07/2023 Discontinued Comment on above: Take 1 capsule by [facility] as needed. traZODone hydrochloride 100 mg oral tablet (20 sources) Serotonin Reuptake Inhibitor Start: 3 take 1 tablet by mouth once daily traZODone (DESYREL) 100 mg tablet Indications: Dysthymic disorder Take 1 tablet by mouth once daily. 90 tablet 2 12/29/2022 Active Start: 12-02-2020 End: 05-28-2024 take 25-50 mg by mouth at bedtime as needed for sleep Trazodone 50 mg tablet Discontinued 25 - 50 mg PO AT BEDTIME as needed for Sleep December 02, 2020 12:00am May 28, 2024 8:34am Start: 12-02-2020 End: 12-02-2022 take 2 tablets by mouth once daily traZODone (DESYREL) 50 mg tablet Take 2 tablets by mouth once daily. 0 12/02/2020 12/02/2022 Discontinued Comment on above: Take 2 tablets by mo uth once daily. Take 1-2 tablets by mouth once daily. Take 1 tablet by sheila th once daily. Problems Active Problems Problem Classification Problem Date Documented Date Episodic/Chronic Abdominal pain (4 sources) Acute abdominal pain; Translations: [Unspecified abdominal pain] Onset: 06-19-2024 06-05-2024 Episodic Administrative/socia l admission (11 sources) Patient encounter status; Translations: [Persons encountering health services in other specified circumstances] Episodic Alcohol-related disorders (11 sources) Alcohol abuse; Translations: [Alcohol abuse, uncomplicated] Onset: 08-21-2023 12-06-2020 Chronic Cancer of breast (4 sources) Malignant neoplasm of unspecified site of unspecified female breast; Translations: [Malignant tumor of breast ] Onset: 08-17-2017 01-11-2020 Chronic Esophageal disorders (3 sources) Gastroesophageal reflux disease; Translations: [Gastro-esophageal reflux disease without esophagitis] Onset: 10-14-2024 03-06-2020 Chronic Essential hypertension (20 sources) Essential hypertension; Translations: [Essential (primary) hypertension] Onset: 12-02-2022 Chronic Fluid and electrolyte disorders (20 sources) Acute hyponatremia; Translations: [Hypo-osmolality and hyponatremia] Onset: 02-23-2024 12-02-2020 Episodic Mood disorders (20 sources) Dysthymia; Translations: [Dysthymic disorder] Onset: 12-02-2022 Chronic Mycoses (1 source) Candidiasis of skin; Translations: [Candidiasis of skin and nail] 03-10-2023 Episodic Nausea and vomiting (7 sources) Nausea and vomiting; Translations: [Nausea with vomiting, unspecified] Onset: 05-31-2024 05-29-2024 Episodic Nonspecific chest pain (1 source) Chest pain, unspecified; Translations: [Chest pain, unspecified] Onset: 10-23-2024 Episodic Nutritional deficiencies (1 source) Vitamin D deficiency, unspecified; Translations: [Vitamin D deficiency, unspecified] Onset: 12-20-2024 Chronic Osteoarthritis (20 sources) Arthritis; Translations: [Unspecified osteoarthritis, unspecified site] Onset: 12-02-2022 Chronic Other aftercare (1 source) Post-discharge follow-up; Translations: [Encounter for follow-up examination after completed treatment for conditions other than malignant neoplasm] 10-20-2024 Episodic Other aftercare (1 source) Encounter for therapeutic drug level monitoring; Translations: [Encounter for therapeutic drug monitoring] Onset: 11-20-2024 Episodic Other fractures (6 sources) Closed fracture of multiple ribs; Translations: [Multiple fractures of ribs, left side, subsequent encounter for fracture with routine healing] 10-20-2024 Episodic Other fractures (1 source) Multiple fractures of ribs, left side, initial encounter for closed fracture; Translations: [Multiple fractures of ribs, left side, initial encounter for closed fracture] Onset: 10-14-2024 Episodic Other fractures (1 source) Multiple fractures of ribs, left side, subsequent encounter for fracture with routine healing; Translations: [Closed fracture of multiple ribs of left side with routine healing, subsequent encounter] Onset: 12-15-2024 Episodic Other liver diseases (1 source) Fatty (change of) liver, not elsewhere classified; Translations: [Fatty (change of) liver, not elsewhere classified] Onset: 10-14-2024 Chronic Other liver diseases (6 sources) Elevated liver enzymes level; Translations: [Abnormal levels of other serum enzymes] 12-06-2020 Episodic Other liver diseases (1 source) Enzyme level - finding; Translations: [Abnormal levels of other serum enzymes] Onset: 10-14-2024 Episodic Other liver diseases (5 sources) Jaundice; Translations: [Unspecified jaundice] 10-20-2024 Episodic Other liver diseases (3 sources) Abnormal levels of other serum enzymes; Translations: [Abnormal levels of other serum enzymes] Onset: 02-23-2024 Episodic Other liver diseases (1 source) Unspecified jaundice; Translations: [Jaundice] Onset: 11-20-2024 Episodic Other nervous system disorders (5 sources) Tremor; Translations: [Tremor, unspecified] 12-12-2020 Episodic Other non-traumatic joint disorders (1 source) Hip pain 03-06-2020 Episodic Other nutritional; endocrine; and metabolic disorders (20 sources) Obese class I; Translations: [Obesity, unspecified] Onset: 12-07-2023 12-07-2023 Chronic Other nutritional; endocrine; and metabolic disorders (1 source) Hypomagnesemia; Translations: [Hypomagnesemia] 03-08-2024 Chronic Other nutritional; endocrine; and metabolic disorders (1 source) Hypomagnesemia; Translations: [Hypomagnesemia] Onset: 03-08-2024 Chronic Other screening for suspected conditions (not mental disorders or infectious disease) (2 sources) Other specified abnormal findings of blood chemistry; Translations: [Other abnormal blood chemistry] Onset: 12-15-2024 11-21-2024 Episodic Other upper respiratory disease (1 source) Allergic rhinitis due to pollen; Translations: [Seasonal allergic rhinitis due to pollen] Onset: 12-15-2024 Chronic Pancreatic disorders (not diabetes) (3 sources) Other chronic pancreatitis; Translations: [Chronic pancreatitis] Onset: 12-15-2024 12-25-2024 Chronic Pancreatic disorders (not diabetes) (20 sources) Acute pancreatitis; Translations: [Acute pancreatitis without necrosis or infection, unspecified] Onset: 05-31-2024 05-29-2024 Episodic Residual codes; unclassified (6 sources) Insomnia; Translations: [Other insomnia] 12-07-2023 Chronic Residual codes; unclassified (1 source) Other insomnia; Translations: [Other insomnia] Onset: 12-15-2024 Chronic Residual codes; unclassified (1 source) Flushing 01-11-2020 Episodic Residual codes; unclassified (2 sources) Insomnia 01-11-2020 Episodic Spondylosis; intervertebral disc disorders; other back problems (1 source) Chronic low back pain 03-06-2020 Episodic Thyroid disorders (20 sources) 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; Translations: [Other specified hypothyroidism] Onset: 12-02-2022 Chronic Unclassified (1 source) New Patient / [id number]() Onset: 08-12-2017 Unclassified (1 source) Malignant neoplasm of upper-outer quadrant of left female breast (HCC) / C50.412(ICD-10) Onset: 08-12-2017 Unclassified (1 source) Estrogen receptor positive status (ER+) / Z17.0(ICD-10) Onset: 08-12-2017 Unclassified (1 source) Elevated liver function tests 11-22-2024 Viral infection (3 sources) Disease caused by 2019-nCoV; Translations: [COVID-19] 08-03-2024 Episodic Viral infection (1 source) COVID-19; Translations: [COVID-19] Onset: 08-02-2024 Past or Other Problems Problem Classification Problem Date Documented Da te Episodic/Chronic Cancer of breast (20 sources) History of malignant neoplasm of breast; Translations: [Personal history of malignant neoplasm of breast] Onset: 12-02-2022 Episodic E Codes: Fall (5 sources) Fall on ice; Translations: [Unspecified fall due to ice and snow, initial encounter] Onset: 08-02-2024 10-20-2024 Episodic Fracture of lower limb (10 sources) Fracture of ankle; Translations: [Other fracture of right lower leg, initial encounter for closed fracture] Onset: 03-08-2024 09-07-2022 Episodic Malaise and fatigue (3 sources) Asthenia; Translations: [Weakness] Onset: 08-21-2023 08-21-2023 Episodic Other nutritional; endocrine; and metabolic disorders (20 sources) Body mass index 40+ - severely obese; Translations: [Morbid (severe) obesity due to excess calories] Onset: 12-02-2022 Resolved: 12-07-2023 Chronic Other nutritional; endocrine; and metabolic disorders (20 sources) Obese class II; Translations: [Obesity, unspecified] Onset: 06-28-2023 Resolved: 12-15-2024 06-28-2023 Chronic Unclassified (1 source) New Patient; Translations: [New Patient] Onset: 08-12-2017 Unclassified (1 source) Malignant neoplasm of upper-outer quadrant of left female breast (HCC); Translations: [Malignant neoplasm of upper-outer quadrant of left female breast (HCC)] Onset: 08-12-2017 Unclassified (1 source) Estrogen receptor positive status (ER+); Translations: [Estrogen receptor positive status (ER+)] Onset: 08-12-2017 Results Test Name Value Interpretation Reference Range Facility Gastroenterology Visit Repor ton 12-20-2024 Gastroenterology Visit Report [facility] [address] [place] [address] OFFICE VISIT Date of Service: 12/20/24 MR#: [id number] Acct: [id number] Name: ORA ADAMS Rep #: [id number] : 1970 Provider: Dr. Chuy noble MD Age/Sex: 54/F [place] [facility] [place]: Signed Intake Vital Signs 10/14/24 02:20 12/20/24 10:00 Height 5 ft 2 in 5 ft 2 in Weight: 184 lb 8 oz BMI 33.7 BP 132/84 H Blood Pressure Location Rt brachial Position Sitting Respiration 17 Pulse 86 Pulse Source Monitor Pulse Oximetry (%) 95 Oxygen Delivery Method room air Intake Visit Reasons: Jaundice Chief Complaint: Elevated Liver Allergies Penicillins Allergy (Verified 12/20/24 10:04) Hives Sulfa (Sulfonamide Antibiotics) Allergy (Verified 12/20/24 10:04) Hives vancomycin Allergy (Verified 12/20/24 10:04) Hives Medications ???Medication ???Instructions ???Recorded ???Confirmed ???Type omeprazole 40 mg capsule,delayed 40 mg PO DAILY GERD 12/02/2012/20 History release levothyroxine 150 mcg tablet 150 mcg PO DAILY thyroid 02/20/24 12/20/24 History lorazepam 0.5 mg tablet (Ativan) 0.5 mg PO DAILY PRN sleep 05/28/24 12/20/24 History ondansetron 4 mg disintegrating 4 mg PO Q6H PRN PRN Nausea #15 tab s 05/28/24 12/20/24 Rx tablet potassium chloride 20 mEq 20 meq PO BID supplement #10 tabs 05/28/24 12/20/24 Rx tablet,extended release zolpidem 5 mg tablet 5 mg PO QHS PRN sleep 05/28/24 History gabapentin 100 mg capsule 100 mg PO BID 10/14/24 12/20/24 Hi story gabapentin 300 mg capsule 300 mg PO QHS PRN pain 10/14/24 History sertraline 25 mg tablet 25 mg PO QDAY 12/20/24 12/20/24 Hi story PFSH Medical History Alcohol abuse History of breast cancer HTN (hypertension) Hypothyroid Surgical History H/O mastectomy H/O: hysterectomy Family History Other Alcoholism Social History Smoking Status: Former smoker HPI HPI Chief Complaint: Elevated Liver Details: ORA ADAMS, is a 54 F who presents to the office today for Pancreatitis PCP referred for acute pancreatitis, elevated LFTs. Hx alcohol abuse OV 5.28.25- Patient is here due to a referral she had pancreatitis from drinking but no longer has it. She has not drank since around [place] time of last year (2023) , Elevated Liver Function results. Patient came to ED on 10/14 for abdominal pain and after fall which resulted into the fracture of left 5th and 6th rib and found to have acute alcoholic pancreatitis with CT abdomen findings of acute pancreatitis with lobular soft tissue density surrounding majority of tail of pancreas measuring 5 x 6 x 5.3 cm possible peripancreatic fat/phlegmon with developing complex pseudocyst. Patient also had pseudopancreatic cyst, small nodule along appropriate recommendation of the stomach. She was transferred to [facility] in [place] where she had further CT scan and MRI but was treated conservatively. No procedure was done as per the patient ROS Const Constitutional: No fever(s), decreased energy, weakness or weight change ENT ENT: No dizziness/vertigo, nosebleed/epistaxis or tongue swelling Resp Respiratory: No shortness of breath or wheezing Cardio Cardiology: No chest pain at rest or dyspnea on exertion Gastro GI: No coffee ground emesis, Blood in stool or Black,tarry stools Genitourinary-Female: No difficulty urinating or burning urination Musc Musculoskeletal: No limited range of motion or muscle weakness Skin Skin: Positive for dry skin; No rash Neuro Neurology: No abnormal movements, behavioral changes, weakness or lack of coordination Psych Psychiatric: No behavioral changes, No hyperactivity and No inattentiveness Endo Endocrine: No increased thirst/drinking, increased hunger or weight change Aller/Imm Allergy/Immunologic: No tongue swelling or wheezing Beck/Lymp Hematologic/Lymphatic: No easy bleeding or easy bruising Exam Const General: cooperative, no acute distress and well developed Nutritional Appearance: average body habitus Orientation: alert, awake and oriented x3 HENMT Head: normocephalic and atraumatic Nose: external nose normal Face and sinus: normal facial exam Mouth: moist mucous membranes Eyes Pupils: PERRL EOM: EOM intact bilaterally Other: Mild icterus Neck Neck: normal visual inspection, no meningeal signs and trachea midline Carotids: no bruits Chest Chest palpation inspection: normal inspection of the chest Resp Effort Inspection: normal respiratory effort and (more content not included)... Normal [facility] CNOVon 12-15-2024 CNOV Office Visit (INTMWS ) ----- ORA ADAMS ([id number]) 1970 F Date Time Provider Department 12/15/24 7:40 AM ALIRIO WOODSON INTMWS During your visit today, we recorded the following information about you: Pulse Respiration Blood pressure Weight 50/minute 14/minute 120/76 82.8 kg Alirio Woodson APRN.ELECTRICAL INTEGRATOR 12/15/2024 8:08 AM Signed SUBJECTIVE Ora Adams is a 54 year old female here today for a check up on her medical problems. Chief Complaint Patient presents with: Follow Up: Blood work HPI Ora is a 54-year-old female with a history of liver disease, presenting for follow-up. Ora reports improvement in her overall condition but notes persistent sinus congestion for the past week, which she attributes to allergies. She also experiences generalized myalgia, which she believes is exacerbated by the weather. She has been taking oxycodone for pain management but expresses a desire to discontinue its use. She has attempted to manage her pain with acetaminophen, taking 2 tablets twice daily, but reports minimal relief. She inquires about transitioning back to tramadol, noting that she experiences pruritus with most medications but does not recall this side effect with tramadol. She also reports experiencing diarrhea, which she attributes to lactulose. She takes lactulose variably, depending on how she feels each day. She has also been inconsistent with her Creon intake, particularly during a recent trip for her stepdaughter's college graduation, where she left some of her medications behind, including Ambien. As a result, she has been experiencing insomnia. She is currently taking 20 mEq of potassium daily and has resumed drinking electrolytes. She reports a good appetite but notes that she gets full quickly and does not eat large meals. Ora reports feeling stressed and unmotivated, particularly regarding her job search. She feels physically unfit for long-term care or hospital shifts and has not been actively looking for work. She expresses a lack of motivation and a desire to enjoy her time off from work. She has a history of trying various medications for mood management, including Wellbutrin and Effexor, but did not find them effective. She is open to trying a new medication for mood improvement. Her medications were reviewed today and her list is now up to date. Medications Current Outpatient Medications Medication Sig potassium chloride ER (KLOR-CON M20) 20 mEq tablet Take 1 tablet by mouth once daily. kjpwsi-mvyvbeqi-jahnwsz (CREON) 3,000-9,500- 15,000 unit delayed release capsule Take 1 capsule by mouth three times a day with meals. lactulose 20 gram/30 mL solution Take 30 mL by mouth three times a day. Start with 20 g 3 times daily. Can reduce to 2 times daily if having more than 2 to 3 soft stools/day. promethazine (PHENERGAN) 25 mg tablet Take 1 tablet by mouth every 6 hours as needed for nausea/vomiting. hydroCHLOROthiazide 12.5 mg capsule Take 1 capsule by mouth once daily. levothyroxine (SYNTHROID) 150 mcg tablet Take 1 tablet by mouth once daily. Take on empty stomach. For thyroid omeprazole (PRILOSEC) 40 mg capsule Take 1 capsule by mouth once daily. nystatin (MYCOSTATIN) cream Apply to affected area twice daily. HYDROcodone-acetaminophen (NORCO) 5-325 mg per tablet Take 1 tablet by mouth every 8 hours as needed for pain for up to 14 days. zolpidem (AMBIEN) 5 mg tablet Take 1 tablet by mouth at bedtime as needed for up to 90 days. sertraline (ZOLOFT) 25 mg tablet Take 1 tablet by mouth once daily. No current facility-administered medications for this visit. 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 Respiratory: Negative. Cardiovascular: Negative. OBJECTIVE BP 120/76 Pulse 50 Resp 14 Wt 182 lb 8.7 oz (82.8kg) Physical Exam Vitals and nursing note reviewed. Constitutional: General: She is awake. She is not in acute distress. Appearance: Normal appearance. She is well-developed and well-groomed. She is not ill-appearing, toxic-appearing or diaphoretic. HENT: Head: Normocephalic. Right Ear: External ear normal. Left E (more content not included)... Normal [facility] 12-07-2024 CNPN Telephone (INTMWS) ----- ORA ADAMS ([id number]) 1970 F Date Time Provider Department 12/07/24 ALIRIO WOODSON INTWS During your visit today, we recorded the following information about you: Maribell Chavez 12/08/2024 11:51 AM Signed Patient called to check on rx refills that was requested on 12/07 she is currently without medication and concerned since Chintan is out today she will not have medication until her next office visit on 12/11. Erica Slaughter RN 12/08/2024 2:58 PM Signed See encounter opened today. Allergies As of Date: 12/07/2024 Noted Allergy Reaction BANANA 12/02/2022 4 - Hives PENICILLINS 12/02/2022 4 - Hives SULFA (SULFONAMIDE ANTIBIOTICS) 12/02/2022 4 - Hives VANCOMYCIN 12/02/2022 14 - Other: See Comments Comments: Red man's syndrome ZYVOX (LINEZOLID) 12/02/2022 7 - Swelling 10 - Anaphylaxis Date Reviewed: 10/20/2024 Reviewed by: Elba Shrestha LPN - Fully Assessed Reason for Visit: Refill Request [94] Visit Diagnosis:Other insomnia [G47.09] Prescriptions as of 12/08/2024 - potassium chloride ER (KLOR-CON M20) 20 mEq tablet Take 1 tablet by mouth once daily. - fqpwdh-gbgomddk-ndwuang (CREON) 3,000-9,500- 15,000 unit delayed release capsule Take 1 capsule by mouth three times a day with meals. - lactulose 20 gram/30 mL solution Take 30 mL by mouth three times a day. Start with 20 g 3 times daily. Can reduce to 2 times daily if having more than 2 to 3 soft stools/day. - promethazine (PHENERGAN) 25 mg tablet Take 1 tablet by mouth every 6 hours as needed for nausea/vomiting. - hydroCHLOROthiazide 12.5 mg capsule Take 1 capsule by mouth once daily. - levothyroxine (SYNTHROID) 150 mcg tablet Take 1 tablet by mouth once daily. Take on empty stomach. For thyroid - zolpidem (AMBIEN) 5 mg tablet Take 1 tablet by mouth at bedtime as needed for up to 90 days. - omeprazole (PRILOSEC) 40 mg capsule Take 1 capsule by mouth once daily. - nystatin (MYCOSTATIN) cream Apply to affected area twice daily. 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 [*12/02/2022 History of breast cancer [Z85.3] 12/02/2022 Arthritis [M19.90] 12/02/2022 Dysthymic disorder [F34.1] 12/02/2022 Obesity, Class II, BMI 35-39.9 [E66.812] 06/28/2023 Obesity, Class I, BMI 30-34.9 [E66.811] 12/07/2023 Encounter Status:Closed by KEVIN DIAMOND on 12/07/24 Normal [facility] Ammonia Plas-sCncon 12-07-19 25 Ammonia (P) [Moles/Vol] 47 umol/L Normal 11-51 [facility] Comment on above: Order Comment: Speci men Type: BLOOD SPECIMENOrdering Facility: [facility] Address: [address] [place] [address] Performed By: #### 1 [id number] ####[facility] LABCLIA [id number] [place] [address] [place] Basic metabolic 2000 panelon 12-06-2024 Anion gap [Moles/Vol] 14 mmol/L Normal 8-[address] [facility] Comment on above: Order Comment: Speci men Type: BLOOD SPECIMENOrdering Facility: [facility] Address: [address] [place] [address] Performed By: #### 2 4325-3, 01959-4 ####[facility]CLIA [id number] [place] [address] [place] Calcium [Mass/Vol] 8.8 mg/dL Normal 8.5-10.2 [facility] Comment on above: Order Comment: Speci men Type: BLOOD SPECIMENOrdering Facility: [facility] Address: [address] [place] [address] Performed By: #### 2 4325-3, 34556-0 ####[facility] LABCLIA [id number] [place] [address] [place] Chloride [Moles/Vol] 98 mmol/L Normal 98-107 [facility] Comment on above: Order Comment: Speci men Type: BLOOD SPECIMENOrdering Facility: [facility] Address: [address] [place] [address] Performed By: #### 2 4325-3, 43348-4 ####[facility] LABCLIA [id number] [address] [address] [place] CO2 [Moles/Vol] 27 mmol/L Normal 22-30 [facility] Comment on above: Order Comment: Speci men Type: BLOOD SPECIMENOrdering Facility: [facility] Address: [address] [id number] Performed By: #### 2 4325-3, 57129-0 ####[facility] LABCLIA [id number] [address] [address] [place] Creatinine [Mass/Vol] 0.56 mg/dL Low 0.58-0.[address] [facility] Comment on above: Order Comment: Speci men Type: BLOOD SPECIMENOrdering Facility: [facility] Address: [address] [place] [address] Performed By: #### 2 4325-3, ####[facility] LABIA [id number] [place] [address] [place] Creatinine and Glomerular filtration rate.predicted panel (S/P/Bld) 107 mL/min/1.73m??? Normal >=60 [facility] Comment on above: Order Comment: Speci men Type: BLOOD SPECIMENOrdering Facility: [facility] Address: [address] [place] [address] Result Comment: Ghada mated Glomerular Filtration Rate (eGFR) is calculated using the 2020 CKD-EPI creatinine equation. This equation utilizes serum creatinine, sex, and age as parameters. The creatinine assay has traceable calibration to isotope dilution-mass spectrometry. Refer to KDIGO guidelines for clinical interpretation. In patients with unstable renal function, e.g. those with acute kidney injury, the eGFR may not accurately reflect actual GFR. Performed By: #### 2 4325-3, ####[facility] LABIA [id number] [place] [id number] [place] Glucose [Mass/Vol] 105 mg/dL High 74-99 [facility] Comment on above: Order Comment: Speci men Type: BLOOD SPECIMENOrdering Facility: [facility] Address: [address] [place], [place] [id number] Result Comment: The [place] Diabetes Association (ADA) provides guidance for cutoff values for fasting glucose and random glucose. The ADA defines fasting as no caloric intake for at least 8 hours. Fasting plasma glucose results between 100 to 125 mg/dL indicate increased risk for diabetes (prediabetes). Fasting plasma glucose results greater than or equal to 126 mg/dL meet the criteria for diagnosis of diabetes. In the absence of unequivocal hyperglycemia, results should be confirmed by repeat testing. In a patient with classic symptoms of hyperglycemia or hyperglycemic crisis, random plasma glucose results greater than or equal to 200 mg/dL meet the criteria for diagnosis of diabetes. Reference: Standards of Medical Care in Diabetes 2016, [place] Diabetes Association. Diabetes Care. 2016.39(Suppl 1). Performed By: #### 2 4325-3, 29710-4 ####[facility] LABCLIA [id number] [place] [address] [place] Potassium [Moles/Vol] 3.2 mmol/L Low 3.7-5.[address] [facility] Comment on above: Order Comment: Speci men Type: BLOOD SPECIMENOrdering Facility: [facility] Address: [address] [place] [address] Performed By: #### 2 432-3, 87300-4 ####[facility] LABCLIA [id number] [place] [address] [place] Sodium [Moles/Vol] 139 mmol/L Normal 136-144 [facility] Comment on above: Order Comment: Speci men Type: BLOOD SPECIMENOrdering Facility: [facility] Address: [address] [place] [address] Performed By: #### 2 4324-3, 70192-1 ####[facility] LABCLIA [id number] [address] [address] [place] Urea nitrogen [Mass/Vol] 3 mg/dL Low 7-21 [facility] Comment on above: Order Comment: Speci men Type: BLOOD SPECIMENOrdering Facility: [facility] Address: [address] [place] [address] Performed By: #### 2 4324-3, 04342-3 ####[facility] LABCLIA [id number] [place] [id number] [place] Hepatic function 2000 panelo n 12-06-2024 Albumin [Mass/Vol] 3.0 g/dL Low 3.9-4.9 [facility] Comment on above: Order Comment: Speci men Type: BLOOD SPECIMENOrdering Facility: [facility] Address: [address] [place] [address] Performed By: #### 2 4325-3, 62189-4 ####[facility] LABCLIA [id number] [place] [id number] [place] ALP [Catalytic activity/Vol] 167 U/L High 34-123 [facility] Comment on above: Order Comment: Speci men Type: BLOOD SPECIMENOrdering Facility: [facility] Address: [address] [place] [address] Performed By: #### 2 4325-3, 60862-9 ####[facility] LABCLIA [id number] [place] [id number] [place] ALT [Catalytic activity/Vol] 24 U/L Normal 7-38 [facility] Comment on above: Order Comment: Speci men Type: BLOOD SPECIMENOrdering Facility: [facility] Address: [address] [place] [address] Performed By: #### 2 4325-3, 81538-0 ####[facility] LABCLIA [id number] [place] [id number] [place] AST [Catalytic activity/Vol] 107 U/L High 13-35 [facility] Comment on above: Order Comment: Speci men Type: BLOOD SPECIMENOrdering Facility: [facility] Address: [address] [place] [address] Performed By: #### 2 4325-3, 71088-0 ####[facility] LABCLIA [id number] [place] [id number] [place] Bilirubin [Mass/Vol] 5.5 mg/dL High 0.2-1.3 [facility] Comment on above: Order Comment: Speci men Type: BLOOD SPECIMENOrdering Facility: [facility] Address: [address] [place] [address] Performed By: #### 2 4325-3, 12943-0 ####[facility] LABCLIA [id number] [place] [address] [place] Bilirubin.conjugated [Mass/Vol] 3.6 mg/dL High <0.3 [facility] Comment on above: Order Comment: Speci men Type: BLOOD SPECIMENOrdering Facility: [facility] Address: [address] [place] [address] Performed By: #### 2 4325-3, 36055-7 ####[facility] LABCLIA [id number] [place] [address] [place] Protein [Mass/Vol] 6.7 g/dL Normal 6.3-8.0 [facility] Comment on above: Order Comment: Speci men Type: BLOOD SPECIMENOrdering Facility: [facility] Address: [address] [place] [address] Performed By: #### 2 4325-3, 49935-7 ####[facility] LABCLIA [id number] [place] [address] [place] LY BY IFA WITH REFLEXon Nuclear Ab Ql (S) Negative Normal Negative [facility] Comment on above: Order Comment: Speci men Type: BLOOD SPECIMENOrdering Facility: [facility] Address: [address] [place] [address] Result Comment: Anti -nuclear antibody test is used as an aid in diagnosis of systemic autoimmune diseases. Where positive and clinically warranted, follow-up using disease-specific testing is recommended. Low positive titers are not uncommon with advanced age, certain chronic infections, and malignancies among others. Test methodology: Indirect fluorescence immunoassay (IFA) using HEp-2 cells. Performed By: #### A NAIFR ####[facility] LABCLIA [id number] [address] [address] [place] Ammonia Plas-sCncon 11-21-19 Ammonia (P) [Moles/Vol] 65 umol/L High 11-51 [facility] Comment on above: Order Comment: Speci men Type: BLOOD SPECIMENOrdering Facility: [facility] Address: [address] [place] [address] Performed By: #### 1 6362-6 ####[facility] LABIA [id number] [place] [id number] [place] Amylase SerPl-cCncon 025 Amylase [Catalytic activity/Vol] 28 U/L Low 30-104 [facility] Comment on above: Order Comment: Speci men Type: BLOOD SPECIMENOrdering Facility: [facility] Address: [address] [place] [address] Performed By: #### 2 4321-2, 94024-8, 1987-11, 1798-02 ####[facility] [id number] [place] [id number] [place] Basic metabolic 2000 panelon 11-20-2024 Anion gap [Moles/Vol] 13 mmol/L Normal 8-[address] [facility] Comment on above: Order Comment: Speci men Type: BLOOD SPECIMENOrdering Facility: [facility] Address: [address] [place] [address] Performed By: #### 2 4321-2, 11526-6, 1987-11, 1798-02 ####[facility] [id number] [place] [id number] [place] Calcium [Mass/Vol] 8.7 mg/dL Normal 8.5-10.2 [facility] Comment on above: Order Comment: Speci men Type: BLOOD SPECIMENOrdering Facility: [facility] Address: [address] [place] [address] Performed By: #### 2 43207-27, , 1987-11, 1798-02 ####[facility] LABCLIA [id number] [address] [address] [place] Chloride [Moles/Vol] 99 mmol/L Normal 98-107 [facility] Comment on above: Order Comment: Speci men Type: BLOOD SPECIMENOrdering Facility: [facility] Address: [address] [place] [address] Performed By: #### 2 4320-2, 38714-9, 1987-11, 1798-02 ####[facility] LABIA [id number] [address] [address] [place] CO2 [Moles/Vol] 26 mmol/L Normal 22-30 [facility] Comment on above: Order Comment: Speci men Type: BLOOD SPECIMENOrdering Facility: [facility] Address: [address] [place] [address] Performed By: #### 2 4320-2, 84749-5, 1987-11, 1798-02 ####[facility] LABIA [id number] [address] [place] Creatinine [Mass/Vol] 0.59 mg/dL Normal 0.58-0.[address] [facility] Comment on above: Order Comment: Speci men Type: BLOOD SPECIMENOrdering Facility: [facility] Address: [address] [place] [address] Performed By: #### 2 4320-2, 32770-5, 1987-11, 1798-02 ####[facility] LABIA [id number] [address] [address] [place] Creatinine and Glomerular filtration rate.predicted panel (S/P/Bld) 106 mL/min/1.73m??? Normal >=60 [facility] Comment on above: Order Comment: Speci men Type: BLOOD SPECIMENOrdering Facility: [facility] Address: [address] [place] [address] Result Comment: Ghada mated Glomerular Filtration Rate (eGFR) is calculated using the 2020 CKD-EPI creatinine equation. This equation utilizes serum creatinine, sex, and age as parameters. The creatinine assay has traceable calibration to isotope dilution-mass spectrometry. Refer to KDIGO guidelines for clinical interpretation. In patients with unstable renal function, e.g. those with acute kidney injury, the eGFR may not accurately reflect actual GFR. Performed By: #### 2 432-2, 18538-3, 1987-11, 1798-02 ####[facility] LABIA [id number] [address] [address] [place] Glucose [Mass/Vol] 123 mg/dL High 74-99 [facility] Comment on above: Order Comment: Ky badillo Type: BLOOD SPECIMENOrdering Facility: [facility] Address: [address] [place] [address] Result Comment: The [place] Diabetes Association (ADA) provides guidance for cutoff values for fasting glucose and random glucose. The ADA defines fasting as no caloric intake for at least 8 hours. Fasting plasma glucose results between 100 to 125 mg/dL indicate increased risk for diabetes (prediabetes). Fasting plasma glucose results greater than or equal to 126 mg/dL meet the criteria for diagnosis of diabetes. In the absence of unequivocal hyperglycemia, results should be confirmed by repeat testing. In a patient with classic symptoms of hyperglycemia or hyperglycemic crisis, random plasma glucose results greater than or equal to 200 mg/dL meet the criteria for diagnosis of diabetes. Reference: Standards of Medical Care in Diabetes 2016, [place] Diabetes Association. Diabetes Care. 2016.39(Suppl 1). Performed By: #### 2 432-2, 65381-1, 1987-11, 1798-02 ####[facility] LABIA [id number] [address] [address] [place] Potassium [Moles/Vol] 2.8 mmol/L Low 3.7-5.[address] [facility] Comment on above: Order Comment: Ky badillo Type: BLOOD SPECIMENOrdering Facility: [facility] Address: [address] [place] [address] Performed By: #### 2 4320-2, , 1987-11, 1798-02 ####[facility] LABCLIA [id number] [address] [address] [place] Sodium [Moles/Vol] 138 mmol/L Normal 136-144 [facility] Comment on above: Order Comment: Speci men Type: BLOOD SPECIMENOrdering Facility: [facility] Address: [address] [place] [address] Performed By: #### 2 4320-2, , 1987-11, 1798-02 ####[facility] LABIA [id number] [place] [id number] [place] Urea nitrogen [Mass/Vol] 4 mg/dL Low 02-12 [facility] Comment on above: Order Comment: Speci men Type: BLOOD SPECIMENOrdering Facility: [facility] Address: [address] [place] [address] Performed By: #### 2 4320-2, , 1987-11, 1798-02 ####[facility] [id number] [place] [id number] [place] CBC W Auto Differential pane l (Bld)on 11-20-2024 Basophils (Bld) [#/Vol] 0.16 10*3/uL High <0.11 [facility] Comment on above: Order Comment: Speci men Type: BLOOD SPECIMENOrdering Facility: [facility] Address: [address] [place] [address] Performed By: #### 4 537-7, 16680-5 ####[facility] [id number] [place] [id number] [place] Basophils/100 WBC (Bld) 1.6 % Normal C [facility] Comment on above: Order Comment: Speci men Type: BLOOD SPECIMENOrdering Facility: [facility] Address: [address] [place] [address] Performed By: #### 4 537-7, 70070-6 ####[facility] LABCLIA [id number] [address] [place] [address] [place] Differential cell count method Nom (Bld) Auto Normal [facility] Comment on above: Order Comment: Speci men Type: BLOOD SPECIMENOrdering Facility: [facility] Address: [address] [place] [address] Performed By: #### 4 537-7, 20900-4 ####[facility] LABCLIA [id number] [address], [facility] [place] Eosinophils (Bld) [#/Vol] 0.28 10*3/uL Normal <0.46 [facility] Comment on above: Order Comment: Speci men Type: BLOOD SPECIMENOrdering Facility: [facility] Address: [address] [place] [address] Performed By: #### 4 537-7, 50355-9 ####[facility] LABCLIA [id number] [address], [place] [address] [place] Eosinophils/100 WBC (Bld) 2.7 % Normal [facility] Comment on above: Order Comment: Speci men Type: BLOOD SPECIMENOrdering Facility: [facility] Address: [address] [place] [address] Performed By: #### 4 537-7, 08819-3 ####[facility] LABCLIA [id number] [address], [place] [address] [place] Erythrocyte distribution width (RBC) [Ratio] 13.5 % Normal 11.5-15.0 [facility] Comment on above: Order Comment: Speci men Type: BLOOD SPECIMENOrdering Facility: [facility] Address: [address] [place] [address] Performed By: #### 4 537-7, 15052-1 ####[facility] LABCLIA [id number] [address], [facility] [place] Hematocrit (Bld) [Volume fraction] 39.7 % Normal 36.0-46.0 [facility] Comment on above: Order Comment: Speci men Type: BLOOD SPECIMENOrdering Facility: [facility] Address: [address] [place] [address] Performed By: #### 4 537-7, 53630-4 ####[facility] LABCLIA [id number] [place] [address] [place] Hemoglobin (Bld) [Mass/Vol] 12.9 g/dL Normal 11.5-15.5 [facility] Comment on above: Order Comment: Speci men Type: BLOOD SPECIMENOrdering Facility: [facility] Address: [address] [place] [address] Performed By: #### 4 537-7, 07876-4 ####[facility] LABCLIA [id number] [place] [address] [place] Immature granulocytes (Bld) [#/Vol] 0.05 10*3/uL Normal <0.10 [facility] Comment on above: Order Comment: Speci men Type: BLOOD SPECIMENOrdering Facility: [facility] Address: [address] [place] [address] Performed By: #### 4 537-7, 72931-7 ####[facility] LABIA [id number] [place] [address] [place] Immature granulocytes/100 WBC (Bld) 0.5 % Normal [facility] Comment on above: Order Comment: Speci men Type: BLOOD SPECIMENOrdering Facility: [facility] Address: [address] [place] [address] Performed By: #### 4 537-7, 19403-5 ####[facility] LABCLIA [id number] [place] [address] [place] Lymphocytes (Bld) [#/Vol] 2.10 10*3/uL Normal 1.00-4.00 [facility] Comment on above: Order Comment: Speci men Type: BLOOD SPECIMENOrdering Facility: [facility] Address: [address] [place] [address] Performed By: #### 4 537-7, 58252-7 ####[facility] LABIA [id number] [place] [address] [place] Lymphocytes/100 WBC (Bld) 20.6 % Normal [facility] Comment on above: Order Comment: Speci men Type: BLOOD SPECIMENOrdering Facility: [facility] Address: [address] [place] [address] Performed By: #### 4 537-7, 96129-4 ####[facility] LABIA [id number] [place] [address] [place] MCH (RBC) [Entitic mass] 34.2 pg High 26.0-34.0 [facility] Comment on above: Order Comment: Speci men Type: BLOOD SPECIMENOrdering Facility: [facility] Address: [address] [place] [address] Performed By: #### 4 537-7, 43534-0 ####[facility] [id number] [place] [address] [place] MCHC (RBC) [Mass/Vol] 32.5 g/dL Normal 30.5-36.[address] [facility] Comment on above: Order Comment: Speci men Type: BLOOD SPECIMENOrdering Facility: [facility] Address: [address] [place] [address] Performed By: #### 4 537-7, 54511-9 ####[facility] LABIA [id number] [place] [address] [place] MCV (RBC) [Entitic vol] 105.3 fL High 80.0-100.0 C [facility] Comment on above: Order Comment: Speci men Type: BLOOD SPECIMENOrdering Facility: [facility] Address: [address] [place] [address] Performed By: #### 4 537-7, 60515-1 ####[facility] LABCLIA [id number] [place] [id number] [place] Monocytes (Bld) [#/Vol] 0.85 10*3/uL Normal <0.87 [facility] Comment on above: Order Comment: Speci men Type: BLOOD SPECIMENOrdering Facility: [facility] Address: [address] [place] [address] Performed By: #### 4 537-7, 23555-9 ####[facility] LABCLIA [id number] [place] [address] [place] Monocytes/100 WBC (Bld) 8.3 % Normal [facility] Comment on above: Order Comment: Speci men Type: BLOOD SPECIMENOrdering Facility: [facility] Address: [address] [place] [address] Performed By: #### 4 537-7, 86042-1 ####[facility] LABCLIA [id number] [place] [address] [place] Neutrophils (Bld) [#/Vol] 6.77 10*3/uL Normal 1.45-7.50 [facility] Comment on above: Order Comment: Speci men Type: BLOOD SPECIMENOrdering Facility: [facility] Address: [address] [place] [address] Performed By: #### 4 537-7, 05752-0 ####[facility] LABCLIA [id number] [place] [id number] [place] Neutrophils/100 WBC (Bld) 66.3 % Normal [facility] Comment on above: Order Comment: Speci men Type: BLOOD SPECIMENOrdering Facility: [facility] Address: [address] [place] [address] Performed By: #### 4 537-7, 87455-0 ####[facility]CLIA [id number] [place] [address] [place] Nucleated RBC (Bld) [#/Vol] 10*3/uL Normal <0.01 [facility] Comment on above: Order Comment: Speci men Type: BLOOD SPECIMENOrdering Facility: [facility] Address: [address] [place] [address] Performed By: #### 4 537-7, 95605-4 ####[facility]IA [id number] [place] [address] [place] Nucleated RBC/100 WBC (Bld) [Ratio] 0.0 /100 WBC Normal [facility] Comment on above: Order Comment: Speci men Type: BLOOD SPECIMENOrdering Facility: [facility] Address: [address] [place] [address] Performed By: #### 4 537-7, 67835-7 ####[facility] [id number] [place] [address] [place] Platelet mean volume (Bld) [Entitic vol] 10.7 fL Normal 9.0-12.7 [facility] Comment on above: Order Comment: Speci men Type: BLOOD SPECIMENOrdering Facility: [facility] Address: [address] [place] [address] Performed By: #### 4 537-7, 97663-7 ####[facility]IA [id number] [address], [place] [address] [place] Platelets (Bld) [#/Vol] 395 10*3/uL Normal 150-400 [facility] Comment on above: Order Comment: Speci men Type: BLOOD SPECIMENOrdering Facility: [facility] Address: [address] [place] [address] Performed By: #### 4 537-7, 14918-0 ####[facility]IA [id number] [address], [place] [address] [place] RBC (Bld) [#/Vol] 3.77 10*6/uL Low 3.90-5.20 [facility] Comment on above: Order Comment: Speci men Type: BLOOD SPECIMENOrdering Facility: [facility] Address: [address] [place] [address] Performed By: #### 4 537-7, 28199-1 ####[facility] [id number] [place] [address] [place] WBC (Bld) [#/Vol] 10.21 10*3/uL Normal 3.70-11.00 [facility] Comment on above: Order Comment: Speci men Type: BLOOD SPECIMENOrdering Facility: [facility] Address: [address] [place] [address] Performed By: #### 4 537-7, 92222-8 ####[facility]CL[facility] [id number] [place] [address] [place] CRP SerPl-mCncon 11-20-2024 CRP [Mass/Vol] 2.4 mg/dL High <0.9 [facility] Comment on above: Order Comment: Speci men Type: BLOOD SPECIMENOrdering Facility: [facility] Address: [address] [place] [address] Performed By: #### 2 4321-2, 97290-9, 1987-5, 17988 ####[facility]IA [id number] [place] [address] [place] ESR Westergren method (Bld) [Velocity]on 11-20-2024 ESR (Bld) [Velocity] 35 mm/h High 0-20 [facility] Comment on above: Order Comment: Speci men Type: BLOOD SPECIMENOrdering Facility: [facility] Address: [address] [place] [address] Performed By: #### 4 537-7, 74465-7 ####[facility] LABIA [id number] [address] [place] [address] [place] Hepatic function 2000 panelo n 11-20-2024 Albumin [Mass/Vol] 2.8 g/dL Low 3.9-4.9 [facility] Comment on above: Order Comment: Speci men Type: BLOOD SPECIMENOrdering Facility: [facility] Address: [address] [place] [address] Performed By: #### 2 4320-2, 97642-7, 1987-11, 1798-02 ####[facility] LABCLIA [id number] [place] [address] [place] ALP [Catalytic activity/Vol] 156 U/L High 34-123 [facility] Comment on above: Order Comment: Speci men Type: BLOOD SPECIMENOrdering Facility: [facility] Address: [address] [place] [address] Performed By: #### 2 432-2, , 1987-11, 1798-02 ####[facility] LABCLIA [id number] [place] [address] [place] ALT [Catalytic activity/Vol] 43 U/L High 7-38 [facility] Comment on above: Order Comment: Speci men Type: BLOOD SPECIMENOrdering Facility: [facility] Address: [address] [place] [address] Performed By: #### 2 432-2, 49200-9, 1987-11, 1798-02 ####[facility] LABCLIA [id number] [place] [id number] [place] AST [Catalytic activity/Vol] 183 U/L High 13-35 [facility] Comment on above: Order Comment: Speci men Type: BLOOD SPECIMENOrdering Facility: [facility] Address: [address] [place] [address] Performed By: #### 2 432-2, 04957-7, 1987-11, 1798-02 ####[facility] LABCLIA [id number] [address] [address] [place] Bilirubin [Mass/Vol] 8.5 mg/dL High 0.2-1.3 [facility] Comment on above: Order Comment: Speci men Type: BLOOD SPECIMENOrdering Facility: [facility] Address: [address] [place] [address] Performed By: #### 2 4321-2, 73440-3, 1987-11, 1798-02 ####[facility] LABCLIA [id number] [place] [address] [place] Bilirubin.conjugated [Mass/Vol] 5.9 mg/dL High <0.3 [facility] Comment on above: Order Comment: Speci men Type: BLOOD SPECIMENOrdering Facility: [facility] Address: [address] [place] [address] Performed By: #### 2 4321-2, 48352-9, 1987-11, 1798-02 ####[facility] LABCLIA [id number] [place] [address] [place] Protein [Mass/Vol] 6.2 g/dL Low 6.3-8.0 [facility] Comment on above: Order Comment: Speci men Type: BLOOD SPECIMENOrdering Facility: [facility] Address: [address] [place] [address] Performed By: #### 2 4321-2, 13500-1, 1987-11, 1798-02 ####[facility] LABCLIA [id number] [address] [address] [place] Lipase SerPl-cCncon 11-21-19 25 Lipase [Catalytic activity/Vol] 20 U/L Normal 16-61 [facility] Comment on above: Order Comment: Speci men Type: BLOOD SPECIMENOrdering Facility: [facility] Address: [address] [place] [address] Performed By: #### 3 040-3 ####[facility] LABCLIA [id number] [address] [address] [place] AMMONIAon 10-23-2024 Ammonia (P) [Moles/Vol] 56 umol/L High 11 - 51 umol/L [facility] Ammonia (P) [Moles/Vol]on Interpretation and review of laboratory results Abnormal [facility] Ammonia Plas-sCncon 10-24-19 25 Ammonia (P) [Moles/Vol] 56 umol/L High 11-51 [facility] Comment on above: Order Comment: Speci men Type: BLOOD SPECIMENOrdering Facility: [facility] Address: [address] [place] [address] Performed By: #### 1 6362-6 ####[facility] LABCLIA [id number] [place] [id number] [place] Amylase SerPl-cCncon 025 Amylase [Catalytic activity/Vol] 29 U/L Low 30-104 [facility] Comment on above: Order Comment: Speci men Type: BLOOD SPECIMENOrdering Facility: [facility] Address: [address] [place] [address] Performed By: #### 3 040-3, 14879-1, 1798-8, 11088-0 ####[facility] LABCLIA [id number] [place] [address] [place] Basic metabolic 2000 panelon 10-20-2024 Anion gap [Moles/Vol] 15 mmol/L Normal 8-[address] [facility] Comment on above: Order Comment: Speci men Type: BLOOD SPECIMENOrdering Facility: [facility] Address: [address] [place] [address] Performed By: #### 3 040-3, 33964-9, 1798-8, 06499-6 ####[facility] LABCLIA [id number] [place] [id number] [place] Calcium [Mass/Vol] 9.5 mg/dL Normal 8.5-10.2 [facility] Comment on above: Order Comment: Speci men Type: BLOOD SPECIMENOrdering Facility: [facility] Address: [address] [place] [address] Performed By: #### 3 040-3, 97184-1, 8, 97110-2 ####[facility] LABCLIA [id number] [place] [id number] [place] Chloride [Moles/Vol] 95 mmol/L Low 98-107 [facility] Comment on above: Order Comment: Speci men Type: BLOOD SPECIMENOrdering Facility: [facility] Address: [address] [place] [address] Performed By: #### 3 040-3, 19929-1, 1798-02, 09177-4 ####[facility] LABCLIA [id number] [place] [address] [place] CO2 [Moles/Vol] 24 mmol/L Normal 22-30 [facility] Comment on above: Order Comment: Speci men Type: BLOOD SPECIMENOrdering Facility: [facility] Address: [address] [place] [address] Performed By: #### 3 040-3, 84558-7, 8, 11336-9 ####[facility] LABCLIA [id number] [place] [address] [place] Creatinine [Mass/Vol] 0.59 mg/dL Normal 0.58-0.[address] [facility] Comment on above: Order Comment: Speci men Type: BLOOD SPECIMENOrdering Facility: [facility] Address: [address] [place] [address] Performed By: #### 3 040-3, 25029-1, 8, 78702-3 ####[facility] LABCLIA [id number] [address] [address] [place] Creatinine and Glomerular filtration rate.predicted panel (S/P/Bld) 107 mL/min/1.73m??? Normal >=60 [facility] Comment on above: Order Comment: yK badillo Type: BLOOD SPECIMENOrdering Facility: [facility] Address: [address] [place] [address] Result Comment: Ghada mated Glomerular Filtration Rate (eGFR) is calculated using the 2020 CKD-EPI creatinine equation. This equation utilizes serum creatinine, sex, and age as parameters. The creatinine assay has traceable calibration to isotope dilution-mass spectrometry. Refer to KDIGO guidelines for clinical interpretation. In patients with unstable renal function, e.g. those with acute kidney injury, the eGFR may not accurately reflect actual GFR. Performed By: #### 3 040-3, 38542-4, 8, 44071-0 ####[facility] LABIA [id number] [place] [id number] [place] Glucose [Mass/Vol] 88 mg/dL Normal 74-99 [facility] Comment on above: Order Comment: Ky badillo Type: BLOOD SPECIMENOrdering Facility: [facility] Address: [address] [place] [address] Result Comment: The [place] Diabetes Association (ADA) provides guidance for cutoff values for fasting glucose and random glucose. The ADA defines fasting as no caloric intake for at least 8 hours. Fasting plasma glucose results between 100 to 125 mg/dL indicate increased risk for diabetes (prediabetes). Fasting plasma glucose results greater than or equal to 126 mg/dL meet the criteria for diagnosis of diabetes. In the absence of unequivocal hyperglycemia, results should be confirmed by repeat testing. In a patient with classic symptoms of hyperglycemia or hyperglycemic crisis, random plasma glucose results greater than or equal to 200 mg/dL meet the criteria for diagnosis of diabetes. Reference: Standards of Medical Care in Diabetes 2016, English Diabetes Association. Diabetes Care. 2016.39(Suppl 1). Performed By: #### 3 040-3, 22948-6, 8, 24563-1 ####[facility] LABIA [id number] [address] [address] [place] Potassium [Moles/Vol] 3.8 mmol/L Normal 3.7-5.[address] [facility] Comment on above: Order Comment: Speci men Type: BLOOD SPECIMENOrdering Facility: [facility] Address: [address] [place] [address] Performed By: #### 3 040-3, 95362-3, 8, 97174-8 ####[facility] LABCLIA [id number] [place] [address] [place] Sodium [Moles/Vol] 134 mmol/L Low 136-144 [facility] Comment on above: Order Comment: Speci men Type: BLOOD SPECIMENOrdering Facility: [facility] Address: [address] [place] [address] Performed By: #### 3 040-3, 51363-9, 8, 49256-6 ####[facility] LABCLIA [id number] [place] [address] [place] Urea nitrogen [Mass/Vol] 3 mg/dL Low 7-21 [facility] Comment on above: Order Comment: Speci men Type: BLOOD SPECIMENOrdering Facility: [facility] Address: [address] [place] [address] Performed By: #### 3 040-3, 07358-6, 8, 43335-9 ####[facility] LABCLIA [id number] [place] [address] [place] CBC W Auto Differential pane l (Bld)on 10-20-2024 Basophils (Bld) [#/Vol] 0.10 10*3/uL Normal <0.11 [facility] Comment on above: Order Comment: Speci men Type: BLOOD SPECIMENOrdering Facility: [facility] Address: [address] [place] [address] Performed By: #### 5 7021-8 ####[facility] LABCLIA [id number] [place] [address] [place] Basophils/100 WBC (Bld) 1.6 % Normal C [facility] Comment on above: Order Comment: Speci men Type: BLOOD SPECIMENOrdering Facility: [facility] Address: [address] [place] [address] Performed By: #### 5 7021-8 ####[facility] LABCLIA [id number] [address], [place] [address] [place] Differential cell count method Nom (Bld) Auto Normal [facility] Comment on above: Order Comment: Speci men Type: BLOOD SPECIMENOrdering Facility: [facility] Address: [address] [place] [address] Performed By: #### 5 7021-8 ####[facility] LABCLIA [id number] [address], [place] [address] [place] Eosinophils (Bld) [#/Vol] 0.20 10*3/uL Normal <0.46 [facility] Comment on above: Order Comment: Speci men Type: BLOOD SPECIMENOrdering Facility: [facility] Address: [address] [place] [address] Performed By: #### 5 7021-8 ####[facility] LABCLIA [id number] [address], [place] [address] [place] Eosinophils/100 WBC (Bld) 3.2 % Normal [facility] Comment on above: Order Comment: Speci men Type: BLOOD SPECIMENOrdering Facility: [facility] Address: [address] [place] [address] Performed By: #### 5 7021-8 ####[facility] LABCLIA [id number] [address], [place] [address] [place] Erythrocyte distribution width (RBC) [Ratio] 26.0 % High 11.5-15.0 [facility] Comment on above: Order Comment: Speci men Type: BLOOD SPECIMENOrdering Facility: [facility] Address: [address] [place] [address] Performed By: #### 5 7021-8 ####[facility] LABCLIA [id number] [place] [address] [place] Hematocrit (Bld) [Volume fraction] 39.2 % Normal 36.0-46.0 [facility] Comment on above: Order Comment: Speci men Type: BLOOD SPECIMENOrdering Facility: [facility] Address: [address] [place] [address] Performed By: #### 5 7021-8 ####[facility] LABCLIA [id number] [place] [address] [place] Hemoglobin (Bld) [Mass/Vol] 13.4 g/dL Normal 11.5-15.5 [facility] Comment on above: Order Comment: Speci men Type: BLOOD SPECIMENOrdering Facility: [facility] Address: [address] [place] [address] Performed By: #### 5 7021-8 ####[facility] LABCLIA [id number] [place] [address] [place] Immature granulocytes (Bld) [#/Vol] 0.06 10*3/uL Normal <0.10 [facility] Comment on above: Order Comment: Speci men Type: BLOOD SPECIMENOrdering Facility: [facility] Address: [address] [place] [address] Performed By: #### 5 7021-8 ####[facility] LABIA [id number] [place] [address] [place] Immature granulocytes/100 WBC (Bld) 0.9 % Normal [facility] Comment on above: Order Comment: Speci men Type: BLOOD SPECIMENOrdering Facility: [facility] Address: [address] [place] [address] Performed By: #### 5 7021-8 ####[facility] LABCLIA [id number] [place] [address] [place] Lymphocytes (Bld) [#/Vol] 1.73 10*3/uL Normal 1.00-4.00 [facility] Comment on above: Order Comment: Speci men Type: BLOOD SPECIMENOrdering Facility: [facility] Address: [address] [place] [address] Performed By: #### 5 7021-8 ####[facility] LABIA [id number] [place] [address] [place] Lymphocytes/100 WBC (Bld) 27.4 % Normal [facility] Comment on above: Order Comment: Speci men Type: BLOOD SPECIMENOrdering Facility: [facility] Address: [address] [place] [address] Performed By: #### 5 7021-8 ####[facility] LABIA [id number] [place] [address] [place] MCH (RBC) [Entitic mass] 34.4 pg High 26.0-34.0 [facility] Comment on above: Order Comment: Speci men Type: BLOOD SPECIMENOrdering Facility: [facility] Address: [address] [place] [address] Performed By: #### 5 7021-8 ####[facility] LABIA [id number] [place] [address] [place] MCHC (RBC) [Mass/Vol] 34.2 g/dL Normal 30.5-36.[address] [facility] Comment on above: Order Comment: Speci men Type: BLOOD SPECIMENOrdering Facility: [facility] Address: [address] [place] [address] Performed By: #### 5 7021-8 ####[facility] LABCLIA [id number] [place] [id number] [place] MCV (RBC) [Entitic vol] 100.5 fL High 80.0-100.0 C [facility] Comment on above: Order Comment: Speci men Type: BLOOD SPECIMENOrdering Facility: [facility] Address: [address] [place] [address] Performed By: #### 5 7021-8 ####[facility] LABCLIA [id number] [facility] [address] [place] [address] [place] Monocytes (Bld) [#/Vol] 1.10 10*3/uL High <0.87 [facility] Comment on above: Order Comment: Speci men Type: BLOOD SPECIMENOrdering Facility: [facility] Address: [address] [place] [address] Performed By: #### 5 7021-8 ####[facility] LABCLIA [id number] [facility] [address], [facility] [place] Monocytes/100 WBC (Bld) 17.4 % Normal [facility] Comment on above: Order Comment: Speci men Type: BLOOD SPECIMENOrdering Facility: [facility] Address: [address] [place] [address] Performed By: #### 5 7021-8 ####[facility] LABCLIA [id number] [facility] [address], [place] [address] [place] Neutrophils (Bld) [#/Vol] 3.13 10*3/uL Normal 1.45-7.50 [facility] Comment on above: Order Comment: Speci men Type: BLOOD SPECIMENOrdering Facility: [facility] Address: [address] [place] [address] Performed By: #### 5 7021-8 ####[facility] LABCLIA [id number] [facility] [place] [id number] [place] Neutrophils/100 WBC (Bld) 49.5 % Normal [facility] Comment on above: Order Comment: Speci men Type: BLOOD SPECIMENOrdering Facility: [facility] Address: [address] [place] [address] Performed By: #### 5 7021-8 ####[facility] LABCLIA [id number] [facility] [address] [place] [address] [place] Nucleated RBC (Bld) [#/Vol] 10*3/uL Normal <0.01 [facility] Comment on above: Order Comment: Speci men Type: BLOOD SPECIMENOrdering Facility: [facility] Address: [address] [place] [address] Performed By: #### 5 7021-8 ####[facility] LABIA [id number] [place] [address] [place] Nucleated RBC/100 WBC (Bld) [Ratio] 0.0 /100 WBC Normal [facility] Comment on above: Order Comment: Speci men Type: BLOOD SPECIMENOrdering Facility: [facility] Address: [address] [place] [address] Performed By: #### 5 7021-8 ####[facility] LABIA [id number] [place] [address] [place] Platelet mean volume (Bld) [Entitic vol] 10.8 fL Normal 9.0-12.7 [facility] Comment on above: Order Comment: Speci men Type: BLOOD SPECIMENOrdering Facility: [facility] Address: [address] [place] [address] Performed By: #### 5 7021-8 ####[facility] LABIA [id number] [place] [address] [place] Platelets (Bld) [#/Vol] 384 10*3/uL Normal 150-400 [facility] Comment on above: Order Comment: Speci men Type: BLOOD SPECIMENOrdering Facility: [facility] Address: [address] [place] [address] Performed By: #### 5 7021-8 ####[facility] LABIA [id number] [place] [id number] [place] RBC (Bld) [#/Vol] 3.90 10*6/uL Normal 3.90-5.20 [facility] Comment on above: Order Comment: Speci men Type: BLOOD SPECIMENOrdering Facility: [facility] Address: [address] [place] [address] Performed By: #### 5 7021-8 ####[facility] LABCLIA [id number] [place] [id number] [place] WBC (Bld) [#/Vol] 6.32 10*3/uL Normal 3.70-11.00 [facility] Comment on above: Order Comment: Speci men Type: BLOOD SPECIMENOrdering Facility: [facility] Address: [address] [place] [address] Performed By: #### 5 7021-8 ####[facility] LABCLIA [id number] [place] [id number] [place] CNOVon 10-20-2024 CNOV Office Visit (INTMWS ) ----- ORA ADAMS ([id number]) 1970 F Date Time Provider Department 10/20/24 8:20 AM ALIRIO WOODSON INTMWS During your visit today, we recorded the following information about you: Pulse Blood pressure Weight 90/minute 130/100 87 kg Alirio Woodson APRN.ELECTRICAL INTEGRATOR 10/20/2024 9:36 AM Signed .TRANSITION CARE MANAGEMENT (TCM) INITIAL CONTACT [employer] Outreach Provider Action/I: Patient reports that she is losing her insurance as of the first of the month and needed Wednesday appt. Was able to schedule appt to accommodate. Initial contact with patient post discharge, spoke to patient. Patient identified by name and . TRANSITION CARE MANAGEMENT INITIAL OUTREACH DOCUMENTATION: 10/18/2024 Date of Outreach: Outreach Attempt 1: Contact Made Date of Discharge 10/16/2024 SUMMARY: -Pt discharged from [facility] on 10/16/2024. -Admitted for: Pancreatitis Do you have a hospital follow up appointment with your PCP? Appointment on 10/20/2024 with Alirio Woodson. Yes. Remind patient of appointment date, time, and location. If not within 14 calendar days of discharge - please reschedule accordingly. MEDICATIONS: Many patients have questions or concerns about their medications once they are home. Were you prescribed any new medications? No Were you told to hold any medications? No Were any of your medications discontinued? No Do you have any questions about getting or taking your medications? No Your discharge instructions/After visit Summary (AVS) are important in guiding you through the recovery process. Is there anything I might help you understand? No, Patient reports that she has her discharge instructions and doesn't think she has any questions. She has been very tired since discharging home. She reports that she will review them and bring them to appt. Requested medical records from hospital as well. Do you have all the necessary equipment and supplies at home? Yes Medical records from recent hospitalization: Requested from outside hospital Alirio Woodson APRN.ELECTRICAL INTEGRATOR 10/20/2024 9:36 AM Signed Transitional Care Management Progress Note The patients TCM visit was performed within the 7 days of discharge. TCM Eligibility Documentation The following information was gathered during the initial Patient Outreach Encounter. 10/18/2024 Date of Outreach: Outreach Attempt 1: Contact Made Date of Discharge 10/16/2024 If no data exists please enter it manually. If data exists please delete date of discharge and date of initial contact seen below. Patient's Date of discharge: 10/16/2024 Date of initial coordinator contact after discharge: 10/18/2024 Discharge diagnosis: pancreatitis Medication review completed Yes Provider Documentation: In follow-up of hospitalization, Ora Adams is a 53 year old female with the chief complaint of hospital discharge follow up. I have reviewed the patient?s last hospital course including diagnostic testing performed during this hospitalization, their discharge medications, and my assessment and plan with the patient and any family members present at today?s visit. HPI: Ora is a 53-year-old female, with a history of hypothyroidism, presenting with persistent pain and jaundice following a recent fall and hospitalization. Ora reports a fall on an ic day a few weeks ago, landing on her left side and purse. She experienced significant pain and soreness, initially attributing it to bruising. Two weeks later, she developed severe pain in the left chest and back, prompting an ER visit where she was diagnosed with fractures of the left 5th and 6th ribs. She continues to experience substantial pain, unable to lie on the affected side, sleep comfortably, or drive using the left arm. She also notes that the pain extends to the sternum and has been affecting her sleep, for which she took Ambien last night, resulting in 4 hours of sleep. During the ER visit, she underwent blood work revealing elevated bilirubin and lipase levels, leading to a diagnosis of acute pancreatitis. A CT scan identified a pseudocyst, and she was transferred to another hospital, where she describes her stay as the worst hospital stay she has ever had. She reports multiple infiltrations during IV placements, resulting in significant bruising and a persistent red spot on her arm. She also experienced mild jaundice, which she notes is improving, though her eyes remain affected. She was placed on a liquid diet during her hospital stay and reports confusion and frustration with the dietary recommendations provided. She was discharged with instructions to follow a low-fat diet but reports receiving conflicting information and inadequate guidance on dietary restrictions. She has been consuming fruits, vegetables, low-fat yogurt, and whole wheat pro (more content not included)... Normal [facility] Hepatic function 2000 panelo n 10-20-2024 Albumin [Mass/Vol] 3.2 g/dL Low 3.9-4.9 [facility] Comment on above: Order Comment: Speci ayb Type: BLOOD SPECIMENOrdering Facility: [facility] Address: [address] [place] [address] Performed By: #### 3 040-3, 42876-7, 1798-02, 22515-6 ####[facility] LABCLIA [id number] [place] [address] [place] ALP [Catalytic activity/Vol] 239 U/L High 34-123 [facility] Comment on above: Order Comment: Specgeovany badillo Type: BLOOD SPECIMENOrdering Facility: [facility] Address: [address] [id number] Performed By: #### 3 040-3, 47794-3, 8, 50984-3 ####[facility] LABCLIA [id number] [address] [address] [place] ALT [Catalytic activity/Vol] 78 U/L High 7-38 [facility] Comment on above: Order Comment: Speci men Type: BLOOD SPECIMENOrdering Facility: [facility] Address: [address] [place] [address] Performed By: #### 3 040-3, 06794-7, 8, 99327-5 ####[facility] LABCLIA [id number] [facility] [address] [address] [place] AST [Catalytic activity/Vol] 240 U/L High 13-35 [facility] Comment on above: Order Comment: Speci men Type: BLOOD SPECIMENOrdering Facility: [facility] Address: [address] [place] [address] Performed By: #### 3 040-3, 31872-2, 8, 83782-0 ####[facility] LABCLIA [id number] [place] [id number] [place] Bilirubin [Mass/Vol] 9.2 mg/dL High 0.2-1.3 [facility] Comment on above: Order Comment: Speci men Type: BLOOD SPECIMENOrdering Facility: [facility] Address: [address] [place] [address] Performed By: #### 3 040-3, 02420-9, 1798-02, 56035-8 ####[facility] LABCLIA [id number] [address] [address] [place] Bilirubin.conjugated [Mass/Vol] 5.8 mg/dL High <0.3 [facility] Comment on above: Order Comment: Speci men Type: BLOOD SPECIMENOrdering Facility: [facility] Address: [address] [place] [address] Performed By: #### 3 040-3, 24687-8, 8, 48180-6 ####[facility] LABCLIA [id number] [facility] [address] [place] [address] [place] Protein [Mass/Vol] 6.8 g/dL Normal 6.3-8.0 [facility] Comment on above: Order Comment: Specgeovany badillo Type: BLOOD SPECIMENOrdering Facility: [facility] Address: [address] [place] [address] Performed By: #### 3 040-3, 34885-7, 1798-8, 97480-2 ####[facility] LABCLIA [id number] [place] [address] [place] Lipase SerPl-cCncon 10-21-19 25 Lipase [Catalytic activity/Vol] 54 U/L Normal 16-61 [facility] Comment on above: Order Comment: Speci aby Type: BLOOD SPECIMENOrdering Facility: [facility] Address: [address] [place] [address] Performed By: #### 3 040-3, 18618-4, 1798-8, 21615-0 ####[facility] LABCLIA [id number] [place] [address] [place] .USTon 10-17-2024 Smooth Muscle Ab Titer Pos 20 Normal [facility] Comment on above: Result Comment: An A nti-smooth muscle antibody (ASMA) of 1:160 or greater is seen in approximately 80% of patients with HBSAG-neg Chronic Active Hepatitis (CAH). Low ASMA titers may be present in viral infections, malignancies and normal individuals. Performed By: #### M G, TSH, FT4, PRO, GFR, ANEU, CBC, MORPH, PHOS, CMP, ADIFF, T3 #### [address] [address] [facility] C[facility]N Telephone ([facility]) ----- ORA ADAMS ([id number]) 1970 F Date Time Provider Department 10/17/24 NO PCP (HIST) [facility] During your visit today, we recorded the following information about you: Melba Phelps 10/17/2024 9:54 AM Signed Minerva called with update on d/c for patient and Clare Nova number was provided. Not our patient. Allergies As of Date: 10/17/2024 Noted Allergy Reaction BANANA 12/02/2022 4 - Hives PENICILLINS 12/02/2022 4 - Hives SULFA (SULFONAMIDE ANTIBIOTICS) 12/02/2022 4 - Hives VANCOMYCIN 12/02/2022 14 - Other: See Comments Comments: Red man's syndrome ZYVOX (LINEZOLID) 12/02/2022 7 - Swelling 10 - Anaphylaxis Date Reviewed: 06/02/2024 Reviewed by: Alirio Woodson APRN.ELECTRICAL INTEGRATOR - Fully Assessed Reason for Visit: Patient Update [1234] Prescriptions as of 10/17/2024 - zolpidem (AMBIEN) 5 mg tablet Take 1 tablet by mouth at bedtime as needed for up to 90 days. - omeprazole (PRILOSEC) 40 mg capsule Take 1 capsule by mouth once daily. - potassium chloride SR (MICRO-K) 10 mEq CR capsule Take 2 capsules by mouth once daily. - levothyroxine (SYNTHROID) 150 mcg tablet Take 1 tablet by mouth once daily. Take on empty stomach. For thyroid - promethazine (PHENERGAN) 25 mg tablet Take 1 tablet by mouth every 6 hours as needed for nausea/vomiting. - hydroCHLOROthiazide 12.5 mg capsule Take 1 capsule by mouth once daily. - nystatin (MYCOSTATIN) cream Apply to affected area twice daily. - nabumetone (RELAFEN) 500 mg tablet Take 500 mg by mouth twice daily. 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 [*12/02/2022 History of breast cancer [Z85.3] 12/02/2022 Arthritis [M19.90] 12/02/2022 Dysthymic disorder [F34.1] 12/02/2022 Obesity, Class II, BMI 35-39.9 [E66.812] 06/28/2023 Obesity, Class I, BMI 30-34.9 [E66.811] 12/07/2023 Encounter Status:Closed by MELBA PHELPS on 10/17/24 [facility] [id number] 10-17-2024 IgG [Mass/Vol] 1028 mg/dL Normal [phone] [facility] Comment on above: Performed By: #### M G, TSH, FT4, PRO, GFR, ANEU, CBC, MORPH, PHOS, CMP, ADIFF, T3 #### [address] [address] IgG Subclass 1 441 mg/dL Normal 248-810 [facility] Comment on above: Performed By: #### M G, TSH, FT4, PRO, GFR, ANEU, CBC, MORPH, PHOS, CMP, ADIFF, T3 #### [address] [address] IgG Subclass 2 389 mg/dL Normal 130-555 [facility] Comment on above: Performed By: #### M G, TSH, FT4, PRO, GFR, ANEU, CBC, MORPH, PHOS, CMP, ADIFF, T3 #### [address] [address] IgG Subclass 3 28 mg/dL Normal 15-102 [facility] Comment on above: Performed By: #### M G, TSH, FT4, PRO, GFR, ANEU, CBC, MORPH, PHOS, CMP, ADIFF, T3 #### [address] [address] IgG Subclass 4 15 mg/dL Normal 2-96 [facility] Comment on above: Result Comment: Perf ormed At: [facility] [address] [id number] Anahi Dodge PhD Ph:[phone] Performed By: #### M G, TSH, FT4, PRO, GFR, ANEU, CBC, MORPH, PHOS, CMP, ADIFF, T3 #### [address] [address] .Auto Diffon 10-16-2024 Basophil, Absolute 0.0 10 3/mcL Normal 0.0-0.3 [facility] Comment on above: Performed By: #### M G, TSH, FT4, PRO, GFR, ANEU, CBC, MORPH, PHOS, CMP, ADIFF, T3 #### [address] [address] Basophils/100 WBC (Bld) 0.8 % Normal 0.0-2.5 [facility] Comment on above: Performed By: #### M G, TSH, FT4, PRO, GFR, ANEU, CBC, MORPH, PHOS, CMP, ADIFF, T3 #### [address] [address] Eosinophil, Absolute 0.2 10 3/mcL Normal 0.0-0.7 [facility] Comment on above: Performed By: #### M G, TSH, FT4, PRO, GFR, ANEU, CBC, MORPH, PHOS, CMP, ADIFF, T3 #### [address] [address] Eosinophils/100 WBC (Bld) 4.1 % Normal 0.0-6.0 [facility] Comment on above: Performed By: #### M G, TSH, FT4, PRO, GFR, ANEU, CBC, MORPH, PHOS, CMP, ADIFF, T3 #### [address] [address] Lymphocyte, Absolute 1.5 10 3/mcL Normal 0.9-4.3 [facility] Comment on above: Performed By: #### M G, TSH, FT4, PRO, GFR, ANEU, CBC, MORPH, PHOS, CMP, ADIFF, T3 #### [address] [address] Lymphocytes/100 WBC (Bld) 29.1 % Normal 20.0-40.0 [facility] Comment on above: Performed By: #### M G, TSH, FT4, PRO, GFR, ANEU, CBC, MORPH, PHOS, CMP, ADIFF, T3 #### [address] [address] Monocyte, Absolute 0.6 10 3/mcL Normal 0.1-1.4 [facility] Comment on above: Performed By: #### M G, TSH, FT4, PRO, GFR, ANEU, CBC, MORPH, PHOS, CMP, ADIFF, T3 #### [address] [address] Monocytes/100 WBC (Bld) 12.6 % Normal 2.0-13.0 [facility] Comment on above: Performed By: #### M G, TSH, FT4, PRO, GFR, ANEU, CBC, MORPH, PHOS, CMP, ADIFF, T3 #### [address] [address] Neutrophils/100 WBC (Bld) 53.4 % Normal 50.0-75.0 [facility] Comment on above: Performed By: #### M G, TSH, FT4, PRO, GFR, ANEU, CBC, MORPH, PHOS, CMP, ADIFF, T3 #### [address] [address] .GFRon 10-16-2024 Estimated Glomerular Filtration Rate 105 ml/min/1.73sqm Normal [facility] Comment on above: Result Comment: Stages of Chronic Kidney Disease (CKD) Stage Description eGFR(ml/min/1.73 sq.m.) CKD 1 Normal kidney function or >=90 normal kindney function with possible kidney damage (ex. Proteinuria) CKD 2 Kidney damage with mild loss 60-89 of kidney function CKD 3a Mild to moderate loss of kidney 45-59 function CKD 3b Moderate to severe loss of 30-44 of kindey function CKD 4 Severe loss of kidney function 15-29 CKD 5 Kidney failure <15 Note: (go live 2024) the eGFR calculation was updated to the 2020 CKD-EPI creatinine equation without a race factor to calculate the eGFR results. Performed By: #### M G, TSH, FT4, PRO, GFR, ANEU, CBC, MORPH, PHOS, CMP, ADIFF, T3 #### [address] [address] .Morphon 10-16-2024 Anisocytosis Ql (Bld) 1+ Normal [facility] Comment on above: Performed By: #### M G, TSH, FT4, PRO, GFR, ANEU, CBC, MORPH, PHOS, CMP, ADIFF, T3 #### [place] [address] Hypochrom 1+ Normal [facility] Comment on above: Performed By: #### M G, TSH, FT4, PRO, GFR, ANEU, CBC, MORPH, PHOS, CMP, ADIFF, T3 #### [place] [address] Macrocytosis 1+ Normal [facility] Comment on above: Performed By: #### M G, TSH, FT4, PRO, GFR, ANEU, CBC, MORPH, PHOS, CMP, ADIFF, T3 #### [place] [address] Platelet Estimate Normal Normal [facility] Comment on above: Performed By: #### M G, TSH, FT4, PRO, GFR, ANEU, CBC, MORPH, PHOS, CMP, ADIFF, T3 #### [place] [address] Polychrom 1+ Normal [facility] Comment on above: Performed By: #### M G, TSH, FT4, PRO, GFR, ANEU, CBC, MORPH, PHOS, CMP, ADIFF, T3 #### [place] [address] Target Cell 1+ Normal [facility] Comment on above: Performed By: #### M G, TSH, FT4, PRO, GFR, ANEU, CBC, MORPH, PHOS, CMP, ADIFF, T3 #### [place] [address] .NEUABSon 10-16-2024 Neutrophil, Absolute 2.7 10 3/mcL Normal 2.3-8.1 [facility] Comment on above: Performed By: #### M G, TSH, FT4, PRO, GFR, ANEU, CBC, MORPH, PHOS, CMP, ADIFF, T3 #### [place] [address] CBCon 10-16-2024 Erythrocyte distribution width (RBC) [Ratio] 25.4 % High 11.5-15.5 [facility] Comment on above: Performed By: #### M G, TSH, FT4, PRO, GFR, ANEU, CBC, MORPH, PHOS, CMP, ADIFF, T3 #### [place] [address] Hematocrit (Bld) [Volume fraction] 32.7 % Low 34.0-46.0 [facility] Comment on above: Performed By: #### M G, TSH, FT4, PRO, GFR, ANEU, CBC, MORPH, PHOS, CMP, ADIFF, T3 #### [place] [address] Hgb 11.2 G/dL Low 12.0-16.0 [facility] Comment on above: Performed By: #### M G, TSH, FT4, PRO, GFR, ANEU, CBC, MORPH, PHOS, CMP, ADIFF, T3 #### [place] [address] MCH (RBC) [Entitic mass] 34.7 pg High 27.0-33.0 [facility] Comment on above: Performed By: #### M G, TSH, FT4, PRO, GFR, ANEU, CBC, MORPH, PHOS, CMP, ADIFF, T3 #### [place] [address] MCHC 34.3 G/dL Normal 32.0-36.0 [facility] Comment on above: Performed By: #### M G, TSH, FT4, PRO, GFR, ANEU, CBC, MORPH, PHOS, CMP, ADIFF, T3 #### [place] [id number] MCV (RBC) [Entitic vol] 101.4 fL High 80.0-99.0 [facility] Comment on above: Performed By: #### M G, TSH, FT4, PRO, GFR, ANEU, CBC, MORPH, PHOS, CMP, ADIFF, T3 #### [place] [address] Platelet 214 10 3/mcL Normal 150-450 [facility] Comment on above: Performed By: #### M G, TSH, FT4, PRO, GFR, ANEU, CBC, MORPH, PHOS, CMP, ADIFF, T3 #### [address] [address] Platelet mean volume (Bld) [Entitic vol] 7.0 fL Normal 6.6-10.5 [facility] Comment on above: Performed By: #### M G, TSH, FT4, PRO, GFR, ANEU, CBC, MORPH, PHOS, CMP, ADIFF, T3 #### [place] [id number] RBC 3.22 10 6/mcL Low 4.10-5.30 [facility] Comment on above: Performed By: #### M G, TSH, FT4, PRO, GFR, ANEU, CBC, MORPH, PHOS, CMP, ADIFF, T3 #### [place] [address] WBC 5.0 10 3/mcL Normal 4.5-10.8 [facility] Comment on above: Performed By: #### M G, TSH, FT4, PRO, GFR, ANEU, CBC, MORPH, PHOS, CMP, ADIFF, T3 #### [place] [address] CMPon 10-16-2024 BUN/Creatinine Ratio Unable to Calculate Normal 10.0-2 2.0 [facility] Comment on above: Result Comment: Unab le to calculate this test result accurately. Results used to calculate this test are outside the reportable range. Performed By: #### M G, TSH, FT4, PRO, GFR, ANEU, CBC, MORPH, PHOS, CMP, ADIFF, T3 #### [place] [address] Urea nitrogen [Mass/Vol] mg/dL Low 8.0-22.0 [facility] Comment on above: Performed By: #### M G, TSH, FT4, PRO, GFR, ANEU, CBC, MORPH, PHOS, CMP, ADIFF, T3 #### [place] [id number] Albumin Level 2.3 G/dL Low 3.2-4.8 [facility] Comment on above: Performed By: #### M G, TSH, FT4, PRO, GFR, ANEU, CBC, MORPH, PHOS, CMP, ADIFF, T3 #### [address] [address] Albumin/Globulin [Mass ratio] 0.7 {ratio} Low 0.9-1.6 [facility] Comment on above: Performed By: #### M G, TSH, FT4, PRO, GFR, ANEU, CBC, MORPH, PHOS, CMP, ADIFF, T3 #### [address] [address] ALP [Catalytic activity/Vol] 212 U/L High 38-126 [facility] Comment on above: Performed By: #### M G, TSH, FT4, PRO, GFR, ANEU, CBC, MORPH, PHOS, CMP, ADIFF, T3 #### [address] [address] ALT [Catalytic activity/Vol] 67 U/L High 10-49 [facility] Comment on above: Performed By: #### M G, TSH, FT4, PRO, GFR, ANEU, CBC, MORPH, PHOS, CMP, ADIFF, T3 #### [address] [address] AST [Catalytic activity/Vol] 243 U/L High 8-34 [facility] Comment on above: Performed By: #### M G, TSH, FT4, PRO, GFR, ANEU, CBC, MORPH, PHOS, CMP, ADIFF, T3 #### [address] [address] Bili Total 6.90 mg/dL High 0.20-1.20 [facility] Comment on above: Result Comment: Use of this assay is not recommended for patients undergoing treatment with eltrombopag due to the potential for falsely elevated results. Performed By: #### M G, TSH, FT4, PRO, GFR, ANEU, CBC, MORPH, PHOS, CMP, ADIFF, T3 #### [address] [address] Calcium [Mass/Vol] 7.9 mg/dL Low 8.7-10.4 [facility] Comment on above: Performed By: #### M G, TSH, FT4, PRO, GFR, ANEU, CBC, MORPH, PHOS, CMP, ADIFF, T3 #### [address] [address] Chloride [Moles/Vol] 103 mmol/L Normal 98-110 [facility] Comment on above: Performed By: #### M G, TSH, FT4, PRO, GFR, ANEU, CBC, MORPH, PHOS, CMP, ADIFF, T3 #### [address] [address] CO2 [Moles/Vol] 26 mmol/L Normal 22-32 [facility] Comment on above: Performed By: #### M G, TSH, FT4, PRO, GFR, ANEU, CBC, MORPH, PHOS, CMP, ADIFF, T3 #### [place] [address] Creatinine [Mass/Vol] 0.62 mg/dL Normal 0.50-1.20 [facility] Comment on above: Result Comment: Test ing performed on Soricimed analyzer using enzymatic creatinine methodology. Performed By: #### M G, TSH, FT4, PRO, GFR, ANEU, CBC, MORPH, PHOS, CMP, ADIFF, T3 #### [place] [address] Electrolyte Balance 8.0 mEq/L Normal 4.0-15.0 [facility] Comment on above: Performed By: #### M G, TSH, FT4, PRO, GFR, ANEU, CBC, MORPH, PHOS, CMP, ADIFF, T3 #### [place] [id number] Globulin 3.2 G/dL Normal 1.5-3.8 [facility] Comment on above: Performed By: #### M G, TSH, FT4, PRO, GFR, ANEU, CBC, MORPH, PHOS, CMP, ADIFF, T3 #### [place] [id number] Glucose [Mass/Vol] 69 mg/dL Low 70-110 [facility] Comment on above: Performed By: #### M G, TSH, FT4, PRO, GFR, ANEU, CBC, MORPH, PHOS, CMP, ADIFF, T3 #### [address] [address] Potassium [Moles/Vol] 3.4 mmol/L Low 3.5-5.0 [facility] Comment on above: Performed By: #### M G, TSH, FT4, PRO, GFR, ANEU, CBC, MORPH, PHOS, CMP, ADIFF, T3 #### [place] [id number] Sodium [Moles/Vol] 137 mmol/L Normal 136-145 [facility] Comment on above: Performed By: #### M G, TSH, FT4, PRO, GFR, ANEU, CBC, MORPH, PHOS, CMP, ADIFF, T3 #### [place] [address] Total Protein 5.5 G/dL Low 5.7-8.2 [facility] Comment on above: Performed By: #### M G, TSH, FT4, PRO, GFR, ANEU, CBC, MORPH, PHOS, CMP, ADIFF, T3 #### [place] [address] FT4on 10-16-2024 Free T4 [Mass/Vol] 0.72 ng/dL Low 0.89-1.76 [facility] Comment on above: Result Comment: No te - New Reference Range in effect 20 Performed By: #### M G, TSH, FT4, PRO, GFR, ANEU, CBC, MORPH, PHOS, CMP, ADIFF, T3 #### [place] [address] LABORATORYOrdered By: SYSTEM SYSTEM on 10-16-2024 Albumin BCP dye [Mass/Vol] 2.3 G/dL Low 3.2 - 4.8 G/dL ADM SS Albumin/Globulin [Mass ratio] 0.7 {ratio} Low 0.9 - 1.6 ratio AH ADM SS ALP [Catalytic activity/Vol] 212 U/L High 38 - 126 U/L ADM SS ALT No additional P-5'-P [Catalytic activity/Vol] 67 U/L High 10 - 49 U/L ADM SS Anisocytosis Ql (Bld) 1+ *NA* (10/16/24 3:01 AM) Invalid Interpretation Code Workflow SS AST [Catalytic activity/Vol] 243 U/L High 8 - 34 U/L ADM SS Basophils (Bld) [#/Vol] 0.0 103/mcL Normal 0.0 - 0.3 10^3/mcL AH Workflow SS Basophils/100 WBC (Bld) 0.8 % Normal 0.0 - 2.5 % Workflow SS Bilirubin [Mass/Vol] 6.90 mg/dL High 0.20 - 1.20 mg/dL ADM SS Comment on above: Interpretive Data: U se of this assay is not recommended for patients undergoing treatment with eltrombopag due to the potential for falsely elevated results. Calcium [Mass/Vol] 7.9 mg/dL Low 8.7 - 10. 4 mg/dL ADM SS Chloride [Moles/Vol] 103 mmol/L Normal 98 - 11 0 mEq/L ADM SS CO2 [Moles/Vol] 26 mmol/L Normal 22 - 32 mEq/L ADM SS Creatinine [Mass/Vol] 0.62 mg/dL Normal 0.50 - 1.20 mg/dL ADM SS Comment on above: Interpretive Data: T esting performed on Soricimed analyzer using enzymatic creatinine methodology. Electrolyte Balance 8.0 mEq/L Normal 4.0 - 15 .0 mEq/L ADM SS Eosinophils (Bld) [#/Vol] 0.2 103/mcL Normal 0.0 - 0.7 10^3/mcL Workflow SS Eosinophils/100 WBC (Bld) 4.1 % Normal 0.0 - 6.0 % Workflow SS Erythrocyte distribution width (RBC) [Ratio] 25.4 % High 11.5 - 15.5 % Workflow SS Estimated Glomerular Filtration Rate 105 ml/min/1.73sqm Invalid Interpretation Code Chemistry S Comment on above: Interpretive Data: Stages of Chronic Kidney Disease (CKD) Stage Description eGFR(ml/min/1.73 sq.m.) CKD 1 Normal kidney function or >=90 normal kindney function with possible kidney damage (ex. Proteinuria) CKD 2 Kidney damage with mild loss 60-89 of kidney function CKD 3a Mild to moderate loss of kidney 45-59 function CKD 3b Moderate to severe loss of 30-44 of kindey function CKD 4 Severe loss of kidney function 15-29 CKD 5 Kidney failure <15 Note: (go live 2024) the eGFR calculation was updated to the 2020 CKD-EPI creatinine equation without a race factor to calculate the eGFR results. Free T4 [Mass/Vol] 0.72 ng/dL Low 0.89 - 1.76 ng/dL ADM SS Comment on above: Interpretive Data: * *Note - New Reference Range in effect 20 Globulin 3.2 G/dL Normal 1.5 - 3.8 G/dL ADM SS Glucose [Mass/Vol] 69 mg/dL Low 70 - 110 mg/dL ADM SS Hematocrit (Bld) [Volume fraction] 32.7 % Low 34.0 - 46.0 % AH Workflow SS Hemoglobin (Bld) [Mass/Vol] 11.2 G/dL Low 12.0 - 16.0 G/dL AH Workflow SS Hypochromia Ql (Bld) 1+ *NA* (10/16/24 3:01 AM) Invalid Interpretation Code AH Workflow SS Lymphocytes (Bld) [#/Vol] 1.5 103/mcL Normal 0.9 - 4.3 10^3/mcL AH Workflow SS Lymphocytes/100 WBC (Bld) 29.1 % Normal 20.0 - 40.0 % AH Workflow SS Macrocytes Ql (Bld) 1+ *NA* (10/16/24 3:01 AM) Invalid Interpretation Code AH Workflow SS Magnesium [Mass/Vol] 1.4 mg/dL Low 1.6 - 2 .4 mg/dL ADM SS MCH (RBC) [Entitic mass] 34.7 pg High 27. 0 - 33.0 pg AH Workflow SS MCHC 34.3 G/dL Normal 32.0 - 36.0 G/dL AH Workflow SS MCV (RBC) [Entitic vol] 101.4 fL High 80.0 - 99.0 fL AH Workflow SS Monocytes (Bld) [#/Vol] 0.6 103/mcL Normal 0.1 - 1.4 10^3/mcL AH Workflow SS Monocytes/100 WBC (Bld) 12.6 % Normal 2.0 - 13.0 % AH Workflow SS Neutrophils (Bld) [#/Vol] 2.7 103/mcL Normal 2.3 - 8.1 10^3/mcL AH Workflow SS Neutrophils/100 WBC (Bld) 53.4 % Normal 50.0 - 75.0 % AH Workflow SS Phosphate [Mass/Vol] 3.3 mg/dL Normal 2.4 - 5 .1 mg/dL ADM SS Comment on above: Interpretive Data: * *Note - New Reference Range in effect 20 Platelet mean volume (Bld) [Entitic vol] 7.0 fL Normal 6.6 - 10.5 fL AH Workflow SS Platelets (Bld) [#/Vol] 214 103/mcL Normal 150 - 450 10^3/mcL Workflow SS Platelets LM Ql (Bld) Normal *NA* (10/16/24 3:01 AM) Invalid Interpretation Code Workflow SS Polychromasia LM Ql (Bld) 1+ *NA* (10/16/24 3:01 AM) Invalid Interpretation Code Workflow SS Potassium [Moles/Vol] 3.4 mmol/L Low 3.5 - 5.0 mEq/L ADM SS Protein [Mass/Vol] 5.5 G/dL Low 5.7 - 8.2 G/dL ADM SS PT Coag (PPP) [Time] 15.5 s High 9.0 - 1 4.4 seconds [facility] SS Comment on above: Interpretive Data: E ffective 02/07/08, Protime results may be affected by some antibiotics (i.e. Ciprofloxacin, Azithromycin, Bactrim) which may potentiate the action of oral anticoagulants, with further increases in Protime/INR. PT International Ratio 1.3 ratio Invalid Interpretation Code [facility] Comment on above: Interpretive Data: Lokesh aguilera [employer] (CHEST, 1992, [id number]) recommended therapeutic range for oral anticoagulant therapy is: LOW RISK: Prophylaxis of venous thrombosis INR: 2.0-3.0 Treatment of pulmonary embolism 2.0-3.0 Prevention of systemic embolism 2.0-3.0 HIGH RISK: Mechanical prosthetic valves 2.5-3.5 RBC (Bld) [#/Vol] 3.22 106/mcL Low 4.10 - 5.30 10^6/mcL AH Workflow SS Sodium [Moles/Vol] 137 mmol/L Normal 136 - 145 mEq/L ADM SS T3 [Mass/Vol] 57 ng/dL Low 60 - 181 ng/dL ADM SS Target cells LM Ql (Bld) 1+ *NA* (10/16/24 3:01 AM) Invalid Interpretation Code Workflow SS TSH Qn 72.260 mIU/mL High 0.550 - 4.780 mIU/mL ADM SS WBC (Bld) [#/Vol] 5.0 103/mcL Normal 4.5 - 10.8 10^3/mcL Workflow SS LABORATORYOrdered By: Abiodun melendez on 10-16-2024 Urea nitrogen [Mass/Vol] mg/dL Low 8.0 - 22.0 mg/dL Chemistry S Urea nitrogen/Creatinine [Mass ratio] Unable to Calculate Invalid Interpretation Code 10.0 - 22.0 ADM SS Comment on above: Result Comment: Unab le to calculate this test result accurately. Results used to calculate this test are outside the reportable range. MGon 10-16-2024 Magnesium [Mass/Vol] 1.4 mg/dL Low 1.6-2.4 [facility] Comment on above: Performed By: #### M G, TSH, FT4, PRO, GFR, ANEU, CBC, MORPH, PHOS, CMP, ADIFF, T3 #### [address] [address] PHOSon 10-16-2024 Phosphate [Mass/Vol] 3.3 mg/dL Normal 2.4-5.1 [facility] MAIN Comment on above: Result Comment: No te - New Reference Range in effect 20 Performed By: #### M G, TSH, FT4, PRO, GFR, ANEU, CBC, MORPH, PHOS, CMP, ADIFF, T3 #### [address] [address] PROon 10-16-2024 INR Coag (PPP) [Relative time] 1.3 {INR} Normal [facility] MAIN Comment on above: Result Comment: [employer] (CHEST, 1992, 102:[id number]) recommended therapeutic range for oral anticoagulant therapy is: LOW RISK: Prophylaxis of venous thrombosis INR: 2.0-3.0 Treatment of pulmonary embolism 2.0-3.0 Prevention of systemic embolism 2.0-3.0 HIGH RISK: Mechanical prosthetic valves 2.5-3.5 Performed By: #### M G, TSH, FT4, PRO, GFR, ANEU, CBC, MORPH, PHOS, CMP, ADIFF, T3 #### [place] [address] PT Coag (PPP) [Time] 15.5 s High 9.0-14.4 [facility] MAIN Comment on above: Result Comment: Effe ctive 02/07/08, Protime results may be affected by some antibiotics (i.e. Ciprofloxacin, Azithromycin, Bactrim) which may potentiate the action of oral anticoagulants, with further increases in Protime/INR. Performed By: #### M G, TSH, FT4, PRO, GFR, ANEU, CBC, MORPH, PHOS, CMP, ADIFF, T3 #### [place] [address] SMUSCon 10-16-2024 Smooth Muscle Ab See Titer Normal Neg 20 [facility] MAIN Comment on above: Result Comment: Smoo th Muscle Ab Screen and Titer methodology is an immunofluorescent technique utilizing MSK Substrate. Performed By: #### M G, TSH, FT4, PRO, GFR, ANEU, CBC, MORPH, PHOS, CMP, ADIFF, T3 #### [place] [address] T3on 10-16-2024 Total T3 57 ng/dL Low 60-181 [facility] MAIN Comment on above: Performed By: #### M G, TSH, FT4, PRO, GFR, ANEU, CBC, MORPH, PHOS, CMP, ADIFF, T3 #### [place] [address] TSHon 10-16-2024 TSH 72.260 mIU/mL High 0.550-4.78 0 [facility] MAIN Comment on above: Performed By: #### M G, TSH, FT4, PRO, GFR, ANEU, CBC, MORPH, PHOS, CMP, ADIFF, T3 #### [place] [address] .Auto Diffon 10-15-2024 Basophil, Absolute 0.1 10 3/mcL Normal 0.0-0.3 [facility] MAIN Comment on above: Performed By: #### M G, TSH, FT4, PRO, GFR, ANEU, CBC, MORPH, PHOS, CMP, ADIFF, T3 #### [address] [address] Basophils/100 WBC (Bld) 1.3 % Normal 0.0-2.5 [facility] MAIN Comment on above: Performed By: #### M G, TSH, FT4, PRO, GFR, ANEU, CBC, MORPH, PHOS, CMP, ADIFF, T3 #### [address] [address] Eosinophil, Absolute 0.3 10 3/mcL Normal 0.0-0.7 [facility] MAIN Comment on above: Performed By: #### M G, TSH, FT4, PRO, GFR, ANEU, CBC, MORPH, PHOS, CMP, ADIFF, T3 #### [address] [address] Eosinophils/100 WBC (Bld) 5.7 % Normal 0.0-6.0 [facility] MAIN Comment on above: Performed By: #### M G, TSH, FT4, PRO, GFR, ANEU, CBC, MORPH, PHOS, CMP, ADIFF, T3 #### [address] [address] Lymphocyte, Absolute 1.4 10 3/mcL Normal 0.9-4.3 [facility] MAIN Comment on above: Performed By: #### M G, TSH, FT4, PRO, GFR, ANEU, CBC, MORPH, PHOS, CMP, ADIFF, T3 #### [address] [address] Lymphocytes/100 WBC (Bld) 28.9 % Normal 20.0-40.0 [facility] MAIN Comment on above: Performed By: #### M G, TSH, FT4, PRO, GFR, ANEU, CBC, MORPH, PHOS, CMP, ADIFF, T3 #### [address] [address] Monocyte, Absolute 0.4 10 3/mcL Normal 0.1-1.4 [facility] MAIN Comment on above: Performed By: #### M G, TSH, FT4, PRO, GFR, ANEU, CBC, MORPH, PHOS, CMP, ADIFF, T3 #### [address] [address] Monocytes/100 WBC (Bld) 9.0 % Normal 2.0-13.0 [facility] MAIN Comment on above: Performed By: #### M G, TSH, FT4, PRO, GFR, ANEU, CBC, MORPH, PHOS, CMP, ADIFF, T3 #### [address] [address] Neutrophils/100 WBC (Bld) 55.1 % Normal 50.0-75.0 [facility] MAIN Comment on above: Performed By: #### M G, TSH, FT4, PRO, GFR, ANEU, CBC, MORPH, PHOS, CMP, ADIFF, T3 #### [address] [address] .GFRon 10-15-2024 Estimated Glomerular Filtration Rate 104 ml/min/1.73sqm [facility] MAIN Comment on above: Result Comment: Stages of Chronic Kidney Disease (CKD) Stage Description eGFR(ml/min/1.73 sq.m.) CKD 1 Normal kidney function or >=90 normal kindney function with possible kidney damage (ex. Proteinuria) CKD 2 Kidney damage with mild loss 60-89 of kidney function CKD 3a Mild to moderate loss of kidney 45-59 function CKD 3b Moderate to severe loss of 30-44 of kindey function CKD 4 Severe loss of kidney function 15-29 CKD 5 Kidney failure <15 Note: (go live 2024) the eGFR calculation was updated to the 2020 CKD-EPI creatinine equation without a race factor to calculate the eGFR results. Performed By: #### M G, TSH, FT4, PRO, GFR, ANEU, CBC, MORPH, PHOS, CMP, ADIFF, T3 #### [address] [address] .Morphon 10-15-2024 Anisocytosis Ql (Bld) 2+ Normal [facility] MAIN Comment on above: Performed By: #### M G, TSH, FT4, PRO, GFR, ANEU, CBC, MORPH, PHOS, CMP, ADIFF, T3 #### [place] [address] Macrocytosis 1+ Normal [facility] MAIN Comment on above: Performed By: #### M G, TSH, FT4, PRO, GFR, ANEU, CBC, MORPH, PHOS, CMP, ADIFF, T3 #### [place] [address] Platelet Estimate Normal Normal [facility] MAIN Comment on above: Performed By: #### M G, TSH, FT4, PRO, GFR, ANEU, CBC, MORPH, PHOS, CMP, ADIFF, T3 #### [address] [address] Poik 1+ Normal [facility] MAIN Comment on above: Performed By: #### M G, TSH, FT4, PRO, GFR, ANEU, CBC, MORPH, PHOS, CMP, ADIFF, T3 #### [place] [address] Stomatocytes 1+ Normal [facility] MAIN Comment on above: Performed By: #### M G, TSH, FT4, PRO, GFR, ANEU, CBC, MORPH, PHOS, CMP, ADIFF, T3 #### [place] [address] .NEUABSon 10-15-2024 Neutrophil, Absolute 2.6 10 3/mcL Normal 2.3-8.1 [facility] MAIN Comment on above: Performed By: #### M G, TSH, FT4, PRO, GFR, ANEU, CBC, MORPH, PHOS, CMP, ADIFF, T3 #### [place] [address] CBCon 10-15-2024 Erythrocyte distribution width (RBC) [Ratio] 24.5 % High 11.5-15.5 [facility] MAIN Comment on above: Performed By: #### M G, TSH, FT4, PRO, GFR, ANEU, CBC, MORPH, PHOS, CMP, ADIFF, T3 #### [place] [address] Hematocrit (Bld) [Volume fraction] 34.4 % Normal 34.0-46.0 [facility] MAIN Comment on above: Performed By: #### M G, TSH, FT4, PRO, GFR, ANEU, CBC, MORPH, PHOS, CMP, ADIFF, T3 #### [place] [address] Hgb 11.8 G/dL Low 12.0-16.0 [facility] MAIN Comment on above: Performed By: #### M G, TSH, FT4, PRO, GFR, ANEU, CBC, MORPH, PHOS, CMP, ADIFF, T3 #### [place] [address] MCH (RBC) [Entitic mass] 34.9 pg High 27.0-33.0 [facility] MAIN Comment on above: Performed By: #### M G, TSH, FT4, PRO, GFR, ANEU, CBC, MORPH, PHOS, CMP, ADIFF, T3 #### [place] [address] MCHC 34.4 G/dL Normal 32.0-36.0 [facility] MAIN Comment on above: Performed By: #### M G, TSH, FT4, PRO, GFR, ANEU, CBC, MORPH, PHOS, CMP, ADIFF, T3 #### [place] [address] MCV (RBC) [Entitic vol] 101.5 fL High 80.0-99.0 [facility] MAIN Comment on above: Performed By: #### M G, TSH, FT4, PRO, GFR, ANEU, CBC, MORPH, PHOS, CMP, ADIFF, T3 #### [place] [address] Platelet 205 10 3/mcL Normal 150-450 [facility] MAIN Comment on above: Performed By: #### M G, TSH, FT4, PRO, GFR, ANEU, CBC, MORPH, PHOS, CMP, ADIFF, T3 #### [place] [address] Platelet mean volume (Bld) [Entitic vol] 7.3 fL Normal 6.6-10.5 [facility] MAIN Comment on above: Performed By: #### M G, TSH, FT4, PRO, GFR, ANEU, CBC, MORPH, PHOS, CMP, ADIFF, T3 #### [address] [address] RBC 3.39 10 6/mcL Low 4.10-5.30 [facility] MAIN Comment on above: Performed By: #### M G, TSH, FT4, PRO, GFR, ANEU, CBC, MORPH, PHOS, CMP, ADIFF, T3 #### [place] [id number] WBC 4.8 10 3/mcL Normal 4.5-10.8 [facility] MAIN Comment on above: Performed By: #### M G, TSH, FT4, PRO, GFR, ANEU, CBC, MORPH, PHOS, CMP, ADIFF, T3 #### [place] [address] CMPon 10-15-2024 BUN/Creatinine Ratio Unable to Calculate Normal 10.0-2 2.0 [facility] MAIN Comment on above: Result Comment: Unab le to calculate this test result accurately. Results used to calculate this test are outside the reportable range. Performed By: #### M G, TSH, FT4, PRO, GFR, ANEU, CBC, MORPH, PHOS, CMP, ADIFF, T3 #### [place] [id number] Urea nitrogen [Mass/Vol] mg/dL Low 8.0-22.0 [facility] MAIN Comment on above: Performed By: #### M G, TSH, FT4, PRO, GFR, ANEU, CBC, MORPH, PHOS, CMP, ADIFF, T3 #### [place] [address] Albumin Level 2.4 G/dL Low 3.2-4.8 [facility] MAIN Comment on above: Performed By: #### M G, TSH, FT4, PRO, GFR, ANEU, CBC, MORPH, PHOS, CMP, ADIFF, T3 #### [place] [address] Albumin/Globulin [Mass ratio] 0.8 {ratio} Low 0.9-1.6 [facility] MAIN Comment on above: Performed By: #### M G, TSH, FT4, PRO, GFR, ANEU, CBC, MORPH, PHOS, CMP, ADIFF, T3 #### [address] [address] ALP [Catalytic activity/Vol] 205 U/L High 38-126 [facility] MAIN Comment on above: Performed By: #### M G, TSH, FT4, PRO, GFR, ANEU, CBC, MORPH, PHOS, CMP, ADIFF, T3 #### [address] [address] ALT [Catalytic activity/Vol] 58 U/L High 10-49 [facility] MAIN Comment on above: Performed By: #### M G, TSH, FT4, PRO, GFR, ANEU, CBC, MORPH, PHOS, CMP, ADIFF, T3 #### [address] [address] AST [Catalytic activity/Vol] 182 U/L High 8-34 [facility] MAIN Comment on above: Performed By: #### M G, TSH, FT4, PRO, GFR, ANEU, CBC, MORPH, PHOS, CMP, ADIFF, T3 #### [address] [address] Bili Total 6.30 mg/dL High 0.20-1.20 [facility] MAIN Comment on above: Result Comment: Use of this assay is not recommended for patients undergoing treatment with eltrombopag due to the potential for falsely elevated results. Performed By: #### M G, TSH, FT4, PRO, GFR, ANEU, CBC, MORPH, PHOS, CMP, ADIFF, T3 #### [address] [address] Calcium [Mass/Vol] 8.0 mg/dL Low 8.7-10.4 [facility] MAIN Comment on above: Performed By: #### M G, TSH, FT4, PRO, GFR, ANEU, CBC, MORPH, PHOS, CMP, ADIFF, T3 #### [address] [address] Chloride [Moles/Vol] 106 mmol/L Normal 98-110 [facility] MAIN Comment on above: Performed By: #### M G, TSH, FT4, PRO, GFR, ANEU, CBC, MORPH, PHOS, CMP, ADIFF, T3 #### [address] [address] CO2 [Moles/Vol] 25 mmol/L Normal 22-32 [facility] MAIN Comment on above: Performed By: #### M G, TSH, FT4, PRO, GFR, ANEU, CBC, MORPH, PHOS, CMP, ADIFF, T3 #### [address] [address] Creatinine [Mass/Vol] 0.64 mg/dL Normal 0.50-1.20 [facility] MAIN Comment on above: Result Comment: Test ing performed on Soricimed analyzer using enzymatic creatinine methodology. Performed By: #### M G, TSH, FT4, PRO, GFR, ANEU, CBC, MORPH, PHOS, CMP, ADIFF, T3 #### [address] [address] Electrolyte Balance 6.0 mEq/L Normal 4.0-15.0 [facility] MAIN Comment on above: Performed By: #### M G, TSH, FT4, PRO, GFR, ANEU, CBC, MORPH, PHOS, CMP, ADIFF, T3 #### [address] [address] Globulin 3.0 G/dL Normal 1.5-3.8 [facility] MAIN Comment on above: Performed By: #### M G, TSH, FT4, PRO, GFR, ANEU, CBC, MORPH, PHOS, CMP, ADIFF, T3 #### [address] [address] Glucose [Mass/Vol] 75 mg/dL Normal 70-110 [facility] MAIN Comment on above: Performed By: #### M G, TSH, FT4, PRO, GFR, ANEU, CBC, MORPH, PHOS, CMP, ADIFF, T3 #### [address] [address] Potassium [Moles/Vol] 3.2 mmol/L Low 3.5-5.0 [facility] MAIN Comment on above: Performed By: #### M G, TSH, FT4, PRO, GFR, ANEU, CBC, MORPH, PHOS, CMP, ADIFF, T3 #### [place] [address] Sodium [Moles/Vol] 137 mmol/L Normal 136-145 [facility] MAIN Comment on above: Performed By: #### M G, TSH, FT4, PRO, GFR, ANEU, CBC, MORPH, PHOS, CMP, ADIFF, T3 #### [place] [address] Total Protein 5.4 G/dL Low 5.7-8.2 [facility] MAIN Comment on above: Performed By: #### M G, TSH, FT4, PRO, GFR, ANEU, CBC, MORPH, PHOS, CMP, ADIFF, T3 #### [place] [address] Rei 10-15-2024 Ferritin [Mass/Vol] 698.3 ng/mL High 8.0-252.0 [facility] MAIN Comment on above: Performed By: #### M G, TSH, FT4, PRO, GFR, ANEU, CBC, MORPH, PHOS, CMP, ADIFF, T3 #### [place] [id number] FESon 10-15-2024 Iron [Mass/Vol] 113 ug/dL Normal 50-170 [facility] MAIN Comment on above: Performed By: #### M G, TSH, FT4, PRO, GFR, ANEU, CBC, MORPH, PHOS, CMP, ADIFF, T3 #### [place] [address] Iron Sat 66 % Normal [facility] MAIN Comment on above: Performed By: #### M G, TSH, FT4, PRO, GFR, ANEU, CBC, MORPH, PHOS, CMP, ADIFF, T3 #### [place] [address] TIBC 172 mcg/dL Low 250-500 [facility] MAIN Comment on above: Performed By: #### M G, TSH, FT4, PRO, GFR, ANEU, CBC, MORPH, PHOS, CMP, ADIFF, T3 #### [place] [address] HEPACon 10-15-2024 Hep A IgM Ab Non-Reactive Normal [facility] [place] Comment on above: Performed By: #### M G, TSH, FT4, PRO, GFR, ANEU, CBC, MORPH, PHOS, CMP, ADIFF, T3 #### [address] [address] Hep A IgM Ab Int [facility] MAIN Comment on above: Result Comment: No s erological evidence of a current Hepatitis A infection. See Interp Performed By: #### M G, TSH, FT4, PRO, GFR, ANEU, CBC, MORPH, PHOS, CMP, ADIFF, T3 #### [place] [address] Hep B Core IgM Ab Non-Reactive [facility] [place] [facility] Comment on above: Performed By: #### M G, TSH, FT4, PRO, GFR, ANEU, CBC, MORPH, PHOS, CMP, ADIFF, T3 #### [place] [id number] Hep B Core IgM Ab Int [facility] MAIN Comment on above: Result Comment: Samp les with a value < 0.80 Index are considered nonreactive (negative) for IgM antibodies to hepatitis B core antigen. See Interp Performed By: #### M G, TSH, FT4, PRO, GFR, ANEU, CBC, MORPH, PHOS, CMP, ADIFF, T3 #### [place] [address] Hep B Surf Ag Non-Reactive [facility] [place] [facility] Comment on above: Performed By: #### M G, TSH, FT4, PRO, GFR, ANEU, CBC, MORPH, PHOS, CMP, ADIFF, T3 #### [place] [address] Hep C Ab Non-Reactive [facility] [place] [facility] Comment on above: Performed By: #### M G, TSH, FT4, PRO, GFR, ANEU, CBC, MORPH, PHOS, CMP, ADIFF, T3 #### [place] [address] Hep C Ab Int [facility] MAIN Comment on above: Result Comment: Nonr eactive: Samples with a value < 0.80 are considered nonreactive (negative) for antibodies to HCV. A negative test result does not exclude the possibility of exposure to or infection with HCV. HCV antibodies may be undetectable in some stages of the infection and in some clinical conditions. See Interp Performed By: #### M G, TSH, FT4, PRO, GFR, ANEU, CBC, MORPH, PHOS, CMP, ADIFF, T3 #### [place] [address] LABORATORYOrdered By: SYSTEM SYSTEM on 10-15-2024 Albumin BCP dye [Mass/Vol] 2.4 G/dL Low 3.2 - 4.8 G/dL ADM SS Albumin/Globulin [Mass ratio] 0.8 {ratio} Low 0.9 - 1.6 ratio AH ADM SS ALP [Catalytic activity/Vol] 205 U/L High 38 - 126 U/L ADM SS ALT No additional P-5'-P [Catalytic activity/Vol] 58 U/L High 10 - 49 U/L ADM SS Anisocytosis Ql (Bld) 2+ *NA* (10/15/24 2:21 AM) Invalid Interpretation Code Workflow SS AST [Catalytic activity/Vol] 182 U/L High 8 - 34 U/L AH ADM SS Basophils (Bld) [#/Vol] 0.1 103/mcL Normal 0.0 - 0.3 10^3/mcL AH Workflow SS Basophils/100 WBC (Bld) 1.3 % Normal 0.0 - 2.5 % Workflow SS Bilirubin [Mass/Vol] 6.30 mg/dL High 0.20 - 1.20 mg/dL ADM SS Comment on above: Interpretive Data: U se of this assay is not recommended for patients undergoing treatment with eltrombopag due to the potential for falsely elevated results. Calcium [Mass/Vol] 8.0 mg/dL Low 8.7 - 10. 4 mg/dL AH ADM SS Chloride [Moles/Vol] 106 mmol/L Normal 98 - 11 0 mEq/L AH ADM SS CO2 [Moles/Vol] 25 mmol/L Normal 22 - 32 mEq/L AH ADM SS Creatinine [Mass/Vol] 0.64 mg/dL Normal 0.50 - 1.20 mg/dL ADM SS Comment on above: Interpretive Data: T esting performed on [employer] CH analyzer using enzymatic creatinine methodology. Electrolyte Balance 6.0 mEq/L Normal 4.0 - 15 .0 mEq/L ADM SS Eosinophils (Bld) [#/Vol] 0.3 103/mcL Normal 0.0 - 0.7 10^3/mcL Workflow SS Eosinophils/100 WBC (Bld) 5.7 % Normal 0.0 - 6.0 % Workflow SS Erythrocyte distribution width (RBC) [Ratio] 24.5 % High 11.5 - 15.5 % Workflow SS Estimated Glomerular Filtration Rate 104 ml/min/1.73sqm Invalid Interpretation Code Chemistry S Comment on above: Interpretive Data: Stages of Chronic Kidney Disease (CKD) Stage Description eGFR(ml/min/1.73 sq.m.) CKD 1 Normal kidney function or >=90 normal kindney function with possible kidney damage (ex. Proteinuria) CKD 2 Kidney damage with mild loss 60-89 of kidney function CKD 3a Mild to moderate loss of kidney 45-59 function CKD 3b Moderate to severe loss of 30-44 of kindey function CKD 4 Severe loss of kidney function 15-29 CKD 5 Kidney failure <15 Note: (go live 2024) the eGFR calculation was updated to the 2020 CKD-EPI creatinine equation without a race factor to calculate the eGFR results. Ferritin [Mass/Vol] 698.3 ng/mL High 8.0 - 252.0 ng/mL ADM SS Globulin 3.0 G/dL Normal 1.5 - 3.8 G/dL ADM SS Glucose [Mass/Vol] 75 mg/dL Normal 70 - 110 mg/dL ADM SS Hematocrit (Bld) [Volume fraction] 34.4 % Normal 34.0 - 46.0 % Workflow SS Hemoglobin (Bld) [Mass/Vol] 11.8 G/dL Low 12.0 - 16.0 G/dL Workflow SS Iron [Mass/Vol] 113 ug/dL Normal 50 - 170 mcg/dL ADM SS Iron binding capacity [Mass/Vol] 172 mcg/dL Low 250 - 500 mcg/dL ADM SS Iron saturation [Mass fraction] 66 % Invalid Interpretation Code ADM SS Lymphocytes (Bld) [#/Vol] 1.4 103/mcL Normal 0.9 - 4.3 10^3/mcL AH Workflow SS Lymphocytes/100 WBC (Bld) 28.9 % Normal 20.0 - 40.0 % AH Workflow SS Macrocytes Ql (Bld) 1+ *NA* (10/15/24 2:21 AM) Invalid Interpretation Code Workflow SS MCH (RBC) [Entitic mass] 34.9 pg High 27. 0 - 33.0 pg AH Workflow SS MCHC 34.4 G/dL Normal 32.0 - 36.0 G/dL AH Workflow SS MCV (RBC) [Entitic vol] 101.5 fL High 80.0 - 99.0 fL AH Workflow SS Monocytes (Bld) [#/Vol] 0.4 103/mcL Normal 0.1 - 1.4 10^3/mcL AH Workflow SS Monocytes/100 WBC (Bld) 9.0 % Normal 2.0 - 13.0 % AH Workflow SS Neutrophils (Bld) [#/Vol] 2.6 103/mcL Normal 2.3 - 8.1 10^3/mcL AH Workflow SS Neutrophils/100 WBC (Bld) 55.1 % Normal 50.0 - 75.0 % AH Workflow SS Platelet mean volume (Bld) [Entitic vol] 7.3 fL Normal 6.6 - 10.5 fL AH Workflow SS Platelets (Bld) [#/Vol] 205 103/mcL Normal 150 - 450 10^3/mcL Workflow SS Platelets LM Ql (Bld) Normal *NA* (10/15/24 2:21 AM) Invalid Interpretation Code Workflow SS Poikilocytosis LM Ql (Bld) 1+ *NA* (10/15/24 2:21 AM) Invalid Interpretation Code Workflow SS Potassium [Moles/Vol] 3.2 mmol/L Low 3.5 - 5.0 mEq/L ADM SS Protein [Mass/Vol] 5.4 G/dL Low 5.7 - 8.2 G/dL ADM SS PT Coag (PPP) [Time] 16.2 s High 9.0 - 1 4.4 seconds [facility] SS Comment on above: Interpretive Data: E ffective 02/07/08, Protime results may be affected by some antibiotics (i.e. Ciprofloxacin, Azithromycin, Bactrim) which may potentiate the action of oral anticoagulants, with further increases in Protime/INR. PT International Ratio 1.4 ratio Invalid Interpretation Code AH [facility] SS Comment on above: Interpretive Data: T willy [employer] (CHEST, 1991, 102:[id number]) recommended therapeutic range for oral anticoagulant therapy is: LOW RISK: Prophylaxis of venous thrombosis INR: 2.0-3.0 Treatment of pulmonary embolism 2.0-3.0 Prevention of systemic embolism 2.0-3.0 HIGH RISK: Mechanical prosthetic valves 2.5-3.5 RBC (Bld) [#/Vol] 3.39 106/mcL Low 4.10 - 5.30 10^6/mcL AH Workflow SS Sodium [Moles/Vol] 137 mmol/L Normal 136 - 145 mEq/L AH ADM SS Stomatocytes LM Ql (Bld) 1+ *NA* (10/15/24 2:21 AM) Invalid Interpretation Code AH Workflow SS WBC (Bld) [#/Vol] 4.8 103/mcL Normal 4.5 - 10.8 10^3/mcL AH Workflow SS LABORATORYOrdered By: Rossi Pineda on 10-15-2024 Cholesterol [Mass/Vol] 114 mg/dL Normal 50 - 199 mg/dL AH Chemistry S Comment on above: Interpretive Data: C holesterol Reference Interval: Less than 200 Desirable 200-239 Borderline high risk 240 and above High risk Cholesterol in HDL [Mass/Vol] 6 mg/dL Low 40 - 59 mg/dL AH Chemistry S Cholesterol in LDL [Mass/Vol] 75 mg/dL Normal 0 - 129 mg/dL AH Chemistry S HAV IgM IA Ql Non-Reactive (10/15/24 2:21 AM) Normal Non-Reacti ve AH ADM SS HAV IgM IA Ql No serological evide nce of a current Hepatitis A infection. Normal AH Chemistry S HBV core IgM IA Ql Non-Reactive (10/15/24 2:21 AM) Normal Non-Reacti ve AH ADM SS HBV core IgM IA Ql Samples with a value < 0.80 Index are considered nonreactive (negative) for IgM antibodies to hepatitis B core antigen. Normal AH Chemistry S HBV surface Ag IA Ql Non-Reactive (10/15/24 2:21 AM) Normal Non-Reacti ve AH ADM SS HCV Ab IA Ql Non-Reactive (10/15/24 2:21 AM) Normal Non-Reacti ve AH ADM SS HCV Ab IA Ql Nonreactive: Samples with a value < 0.80 are considered nonreactive (negative) for antibodies to HCV. A negative test result does not exclude the possibility of exposure to or infection with HCV. HCV antibodies may be undetectable in some stages of the infection and in some clinical conditions. Normal AH Chemistry S Triglyceride [Mass/Vol] 165 mg/dL High 3 - 149 mg/dL AH Chemistry S Urea nitrogen [Mass/Vol] mg/dL Low 8.0 - 22.0 mg/dL AH Chemistry S Urea nitrogen/Creatinine [Mass ratio] Unable to Calculate Invalid Interpretation Code 10.0 - 22.0 AH Chemistry S Comment on above: Result Comment: Unab le to calculate this test result accurately. Results used to calculate this test are outside the reportable range. LABORATORYOrdered By: Sparkle Ferrer on 10-15-2024 Smooth muscle Ab IF Ql (S) See Titer 18 (10/15/24 2:21 AM) Normal Neg 20 [facility] Man Viro/Sero SS Comment on above: Interpretive Data: S mooth Muscle Ab Screen and Titer methodology is an immunofluorescent technique utilizing MSK Substrate. LIPIDon 10-15-2024 Cholesterol [Mass/Vol] 114 mg/dL Normal 50-199 [facility] Comment on above: Result Comment: Chol esterol Reference Interval: Less than 200 Desirable 200-239 Borderline high risk 240 and above High risk Performed By: #### M G, TSH, FT4, PRO, GFR, ANEU, CBC, MORPH, PHOS, CMP, ADIFF, T3 #### [facility] [address] [place] [id number] Cholesterol in HDL [Mass/Vol] 6 mg/dL Low 40-59 [facility] Comment on above: Performed By: #### M G, TSH, FT4, PRO, GFR, ANEU, CBC, MORPH, PHOS, CMP, ADIFF, T3 #### [facility] [address] [place] [id number] Cholesterol in LDL [Mass/Vol] 75 mg/dL Normal 0-129 [facility] Comment on above: Performed By: #### M G, TSH, FT4, PRO, GFR, ANEU, CBC, MORPH, PHOS, CMP, ADIFF, T3 #### [facility] [address] [place] [id number] Triglyceride [Mass/Vol] 165 mg/dL High 3-149 [facility] Comment on above: Performed By: #### M G, TSH, FT4, PRO, GFR, ANEU, CBC, MORPH, PHOS, CMP, ADIFF, T3 #### [facility] [address] [place] [id number] MRI MRCPon 10-15-2024 MRI MRCP ORIGINAL EXAMINATION: MRCP; MRI OF THE ABDOMEN WITHOUT AND WITH CONTRAST10/15/2024 10:29 am; 10/15/2024 10:28 am MR MRCP; MR ABDOMEN W/O and WITH CONTRAST COMPARISON: No direct comparison available HISTORY: ORDERING SYSTEM PROVIDED HISTORY: Reason for Exam: increase lft; ORDERING SYSTEM PROVIDED HISTORY: Reason for Exam: concern pancreatic pseudocyst TECHNIQUE: MRCP was performed without the administration of intravenous contrast.; Multiplanar multisequence MRI of the abdomen was performed without and with the administration of intravenous contrast. MRCP dedicated to biliary duct evaluation. Limited organ assessment on this exam. 17 mL MultiHance administered IV. FINDINGS: MRI/MRCP: Subtle periportal edema. Normal common bile duct caliber measures up to 4.5 mm. Gallbladder normal in appearance. No choleliths or sludge. Main pancreatic duct caliber normal. Mild diffuse edema surrounds the pancreas, particularly at the tail. There is a complex mass of pancreas tail demonstrating mixed signal architecture. It has a fairly well-circumscribed margin and measures up to approximately 5.5 x 4.6 cm axial T2 image 28/40. Postcontrast imaging demonstrates subtle region of nodular enhancement at the superior aspect of this focus axial image 70/82650 second imaging measures up to 2 x 1 cm. Remainder of mass demonstrates mixed pre contrast high T2 signal without significant enhancement postcontrast. Additionally, there is a mildly complex irregular fluid collection extending along the posterior margin gastric body, and abutting the superior anterior aspect pancreas tail. This complex fluid collection measures up to approximately 8 x 3.1 by 4.5 cm. There is moderate atrophy remainder of pancreas tail body and head. Additional findings: Moderate fatty replacement of liver. No overtly suspicious postcontrast liver findings. Nodular contour to liver. Moderate bilateral renal cortical thinning. No hydronephrosis. Adrenal glands and spleen grossly normal in appearance. Tiny left pleural effusion. Mild bibasilar pulmonary scar/atelectasis. Bilateral breast implants. Heart size upper limits of normal caliber. No evidence for bowel obstruction. No definite evidence for enlarged lymph nodes. IMPRESSION: [] 1. Pancreas tail mass may relate to decompressed proteinaceous pseudocyst. There is a region of nodular enhancement at its superior posterolateral margin, may relate to remnant pancreas or possible neoplastic nodule. There is an adjacent mildly complex fluid collection extending along the posterior margin of stomach. There are no prior comparisons available. If prior imaging becomes available, an addendum will be added. Otherwise, recommend CT abdomen pelvis with oral and IV contrast. 2. Mild pancreatitis. 3. Fatty replacement of liver with a nodular contour. Fibrosis/cirrhosis considered. 4. Renal cortical thinning. 5. Other findings described above. Interpreted by: Claudette Edmonds DO Preliminary Report By: Claudette Edmonds DO Electronically signed By Claudette Edmonds DO Dictated Date: 10/15/2024 10:55:23 AM Prelim Date: 10/15/2024 11:04:07 AM Sign Date: 10/15/2024 11:04:07 AM Ordering Provider: MAHAD CID [facility] MRI PANCREASon 10-15-2024 MRI PANCREAS ORIGINAL EXAMINATION: MRCP; MRI OF THE ABDOMEN WITHOUT AND WITH CONTRAST10/15/2024 10:29 am; 10/15/2024 10:28 am MR MRCP; MR ABDOMEN W/O and WITH CONTRAST COMPARISON: No direct comparison available HISTORY: ORDERING SYSTEM PROVIDED HISTORY: Reason for Exam: increase lft; ORDERING SYSTEM PROVIDED HISTORY: Reason for Exam: concern pancreatic pseudocyst TECHNIQUE: MRCP was performed without the administration of intravenous contrast.; Multiplanar multisequence MRI of the abdomen was performed without and with the administration of intravenous contrast. MRCP dedicated to biliary duct evaluation. Limited organ assessment on this exam. 17 mL MultiHance administered IV. FINDINGS: MRI/MRCP: Subtle periportal edema. Normal common bile duct caliber measures up to 4.5 mm. Gallbladder normal in appearance. No choleliths or sludge. Main pancreatic duct caliber normal. Mild diffuse edema surrounds the pancreas, particularly at the tail. There is a complex mass of pancreas tail demonstrating mixed signal architecture. It has a fairly well-circumscribed margin and measures up to approximately 5.5 x 4.6 cm axial T2 image 28/40. Postcontrast imaging demonstrates subtle region of nodular enhancement at the superior aspect of this focus axial image 70/35006 second imaging measures up to 2 x 1 cm. Remainder of mass demonstrates mixed pre contrast high T2 signal without significant enhancement postcontrast. Additionally, there is a mildly complex irregular fluid collection extending along the posterior margin gastric body, and abutting the superior anterior aspect pancreas tail. This complex fluid collection measures up to approximately 8 x 3.1 by 4.5 cm. There is moderate atrophy remainder of pancreas tail body and head. Additional findings: Moderate fatty replacement of liver. No overtly suspicious postcontrast liver findings. Nodular contour to liver. Moderate bilateral renal cortical thinning. No hydronephrosis. Adrenal glands and spleen grossly normal in appearance. Tiny left pleural effusion. Mild bibasilar pulmonary scar/atelectasis. Bilateral breast implants. Heart size upper limits of normal caliber. No evidence for bowel obstruction. No definite evidence for enlarged lymph nodes. IMPRESSION: [] 1. Pancreas tail mass may relate to decompressed proteinaceous pseudocyst. There is a region of nodular enhancement at its superior posterolateral margin, may relate to remnant pancreas or possible neoplastic nodule. There is an adjacent mildly complex fluid collection extending along the posterior margin of stomach. There are no prior comparisons available. If prior imaging becomes available, an addendum will be added. Otherwise, recommend CT abdomen pelvis with oral and IV contrast. 2. Mild pancreatitis. 3. Fatty replacement of liver with a nodular contour. Fibrosis/cirrhosis considered. 4. Renal cortical thinning. 5. Other findings described above. Interpreted by: Claudette Edmonds DO Preliminary Report By: Claudette Edmonds DO Electronically signed By Claudette Edmonds DO Dictated Date: 10/15/2024 10:55:23 AM Prelim Date: 10/15/2024 11:04:07 AM Sign Date: 10/15/2024 11:04:07 AM Ordering Provider: MAHAD CID Normal [facility] MAIN PROon 10-15-2024 INR Coag (PPP) [Relative time] 1.4 {INR} Normal [facility] MAIN Comment on above: Result Comment: The [employer] (CHEST, 1992, 102:312S-25S) recommended therapeutic range for oral anticoagulant therapy is: LOW RISK: Prophylaxis of venous thrombosis INR: 2.0-3.0 Treatment of pulmonary embolism 2.0-3.0 Prevention of systemic embolism 2.0-3.0 HIGH RISK: Mechanical prosthetic valves 2.5-3.5 Performed By: #### M G, TSH, FT4, PRO, GFR, ANEU, CBC, MORPH, PHOS, CMP, ADIFF, T3 #### [facility] [address] [place] [id number] PT Coag (PPP) [Time] 16.2 s High 9.0-14.4 [facility] MAIN Comment on above: Result Comment: Effe ctive 02/07/08, Protime results may be affected by some antibiotics (i.e. Ciprofloxacin, Azithromycin, Bactrim) which may potentiate the action of oral anticoagulants, with further increases in Protime/INR. Performed By: #### M G, TSH, FT4, PRO, GFR, ANEU, CBC, MORPH, PHOS, CMP, ADIFF, T3 #### [place] [id number] [place] [address] XR CHEST 1 VIEWon 10-15-2024 XR CHEST 1 VIEW ORIGINAL EXAMINATION: Exam Title:ONE XRAY VIEW OF THE CHEST Completed Time: 10/15/2024 7:54 am Procedure Description:CHEST ONE VIEW AP/PA COMPARISON: No direct comparison available HISTORY: ORDERING SYSTEM PROVIDED HISTORY: Reason for Exam: Chest pain FINDINGS: Lordotic AP technique limits assessment. Mild blunting right costophrenic angle. No gross consolidative pneumonia, left effusion, or pneumothorax. Heart size normal. Aortic arch contour normal. No gross acute osseous process demonstrated. IMPRESSION: Limiting position. Possible small right effusion/right base atelectasis. Interpreted by: Claudette Edmonds DO Preliminary Report By: Claudette Edmonds DO Electronically signed By Claudette Edmonds DO Dictated Date: 10/15/2024 8:14:56 AM Prelim Date: 10/15/2024 8:15:53 AM Sign Date: 10/15/2024 8:15:53 AM Ordering Provider: RUBEN Mark [facility] 12 Lead EKGon 10-14-2024 12 Lead EKG [facility] Cardiovascular Services [address] [place] [address] 12 Lead EKG 10/14/24 0335 MR#: [id number] Acct: [id number] Name: ORA ADAMS Rep #: [id number] : 1970 53 From: Michael Carlisle MD Attending Dr: Status: DEP ER Ordering Dr: Alvino Mercado DO Date: 5 Location: ED Sex: F C Admitted: Test Reason : DYSRHYTHMIA Blood Pressure : */* mmHG Vent. Rate : 82 BPM Atrial Rate : 82 BPM P-R Int : 162 ms QRS Dur : 68 ms QT Int : 410 ms P-R-T Axes : 45 2 28 degrees QTcB Int : 479 ms Normal sinus rhythm Possible Left atrial enlargement Septal infarct , age undetermined Abnormal ECG Confirmed by MICHAEL CARLISLE MD ([id number]), medical transcription editor WHITNEY AGUILAR ([id number]) on 10/16/2024 6:39:21 AM Referred By: AK Confirmed By: MICHAEL CARLISLE MD 10/16/24 0639 Date Michael Carlisle MD CC: AUGUSTINA Woodson; Dr. Alvino Mercado, Signed Normal [facility] AMY 10-14-2024 Amylase [Catalytic activity/Vol] 38 U/L Normal 30-118 [facility] MAIN Comment on above: Result Comment: No te - New Reference Range in effect 20 Performed By: #### M G, TSH, FT4, PRO, GFR, ANEU, CBC, MORPH, PHOS, CMP, ADIFF, T3 #### [address] [address] Abdomen/Pelvis W IV Cont ONL Yon 10-14-2024 Abdomen/Pelvis W IV Cont ONLY [facility] Imaging Services [address] [place], [place] [address] Abdomen/Pelvis W IV Cont ONLY MR#: [id number] Acct: [id number] Name: ORA ADAMS Rep #: [id number] : 1970 F 53 From: Сергей Rivera MD PCP: Alirio Woodson, STEWARD/STEWARDESS BATH-C Status: REG ER Study: Abdomen/Pelvis W IV Cont ONLY Date of Exam: Exam# [id number] Ordering Dr: Alvino Mercado DO PROCEDURE: ABDOMEN/PELVIS W IV CONT ONLY 10/14/2024 REASON FOR EXAM: ELEVATED BILIRUBIN TECHNIQUE: CT of the abdomen and pelvis with contrast with coronal and sagittal reformatted images 95 cc Isovue 370 COMPARISON: 05/28/2024 FINDINGS: Dependent basilar atelectasis. Enlarged, markedly fatty appearing liver again seen. The gallbladder is prominent size and may represent prolonged fasting state without evidence of wall thickening or pericholecystic stranding/inflammatory change or gallbladder fossa fluid seen. The adrenal glands, kidneys and spleen appear within limits. Diffusely atrophic appearing pancreas. Findings are consistent with pancreatitis with lobular soft tissue density surrounding majority of the tail of the pancreas measuring 5 x 6 x 5.3 cm axial 45, coronal 65 and sagittal 116 maybe related to peripancreatic fat necrosis/phlegmon with developing complex pseudocyst or peripancreatic hemorrhage not entirely excluded. Mild adjacent fat stranding, edema. Small amount of fluid along the upper greater curvature of the stomach left upper quadrant axial 31 and coronal 67. No definite appearing vascular complication identified at this time. Abdominal aorta appears within limits without aneurysm. Aortoiliac atherosclerotic calcification noted. No adenopathy identified. No bowel dilation or free air. Normal caliber appendix without secondary signs. The ovaries appear within limits. Status post hysterectomy. The bladder appears within limits. No free fluid. L5-S1 spondylosis/discogenic change again noted. Right larger than left fat containing inguinal hernias again noted. Supraumbilical/periumbili carmine ventral fat containing hernia again noted. CT/Abdomen/Pelvis W IV Cont ONLY IMPRESSION: Diffusely atrophic appearing pancreas. Findings are consistent with pancreatitis with lobular soft tissue density surrounding majority of the tail of the pancreas measuring 5 x 6 x 5.3 cm axial 45, coronal 65 and sagittal 116 maybe related to peripancreatic fat necrosis/phlegmon with developing complex pseudocyst or peripancreatic hemorrhage not entirely excluded. Mild adjacent fat stranding, edema. Small amount of fluid along the upper greater curvature of the stomach left upper quadrant axial 31 and coronal 67. Enlarged, markedly fatty appearing liver again seen. The gallbladder is prominent size and may represent prolonged fasting state without evidence of wall thickening or pericholecystic stranding/inflammatory change or gallbladder fossa fluid seen. Reading Location: [facility] CC: AUGUSTINA Woodson; Dr. Alvino Mercado, Civil Process Server: Signed Normal [facility] Absolute lymphocyte countOrd ered By: Alvino Mercado on 10-14-2024 Lymphocytes Auto (Unsp spec) [#/Vol] 1.65 10*3/uL 0.83-4.51 [facility] Absolute neutrophil countOrd ered By: Alvino Mercado on 10-14-2024 Neutrophils (Bld) [#/Vol] 3.6 10*3/uL 2.0-7.7 [facility] Alcohol, Blood (Medical)-Ser umon 10-14-2024 SERUM ETOH < 10.1 Normal <=10.0 [facility] Comment on above: Result Comment: This test is for medical purposes only. The legal definition of intoxication varies according to local law. Performed By: #### L 500.3400, L501.9100, L500.2500, L501.2450, L501.5200, L100.0100, L501.4020 #### [facility] [address] [place] [address]. [place], [place], [id number] Anion gap in Serum or Plasma Ordered By: Alvino Mercado on 10-14-2024 Anion gap [Moles/Vol] 13 mmol/L 5-15 [facility] Automated lymphocyte count a s percentage of total leukocytesOrdered By: Alvino Mercado on 10-14-2024 Lymphocytes/100 WBC Auto (Unsp spec) 26.2 % 19-41 [facility] BUN/creatinine ratioOrdered By: Alvino Mercado on 10-14-2024 Urea nitrogen/Creatinine [Mass ratio] 6.2 mg/mg Low 10-20 [facility] Basophil percentageOrdered B y: Alvino Mercado on 10-14-2024 Basophils/100 WBC (Bld) 1.3 % High 0-1 [facility] Bilirubin Test strip Ql (U)O rdered By: Alvino Mercado on 10-14-2024 Bilirubin Ql (U) Negative Negative [facility] Bilirubin directOrdered By: Alvino Mercado on 10-14-2024 Bilirubin.direct [Mass/Vol] 4.72 mg/dL High 0.00-0.30 [facility] Comment on above: Hemolysis present, R esults could be affected. Bilirubin, totalOrdered By: Alvino Mercado on 10-14-2024 Bilirubin [Mass/Vol] 7.32 mg/dL High 0.00-1.30 [facility] Blood stomatocytes detection by light microscopyOrdered By: Alvino Mercado on 10-14-2024 Stomatocytes LM Ql (Bld) 2+ [facility] CBC W/Diff, Automatedon 09-24 STOMATOCYTE 2+ Normal [facility] Comment on above: Performed By: #### L 500.3400, L501.9100, L500.2500, L501.2450, L501.5200, L100.0100, L501.4020 #### [facility] [address] [place], [place], [id number] Carbon dioxide, total [Moles /volume] in Central venous bloodOrdered By: Alvino Mercado on 10-14-2024 CO2 [Moles/Vol] 22.4 mmol/L 21.0-32.0 [facility] Chloride assayOrdered By: Paco Mercado on 10-14-2024 Chloride [Moles/Vol] 97 mmol/L Low 98-108 [facility] Comprehensive Metabolic Prof ilon 10-14-2024 Albumin [Mass/Vol] 3.0 g/dL Low 3.5-5.0 [facility] Comment on above: Performed By: #### L 500.3400, L501.9100, L500.2500, L501.2450, L501.5200, L100.0100, L501.4020 #### [facility] [address] [place], [address] Albumin/Globulin [Mass ratio] 1.0 {ratio} Normal 0.9-2.4 [facility] Comment on above: Performed By: #### L 500.3400, L501.9100, L500.2500, L501.2450, L501.5200, L100.0100, L501.4020 #### [facility] [address] [place], [address] ALK PHOS 263 U/L High 35-104 [facility] Comment on above: Performed By: #### L 500.3400, L501.9100, L500.2500, L501.2450, L501.5200, L100.0100, L501.4020 #### [facility] [address] [place], [address] ALT [Catalytic activity/Vol] 70 U/L High <=34 [facility] Comment on above: Performed By: #### L 500.3400, L501.9100, L500.2500, L501.2450, L501.5200, L100.0100, L501.4020 #### [facility] [address] [place], [address] AST [Catalytic activity/Vol] 271 U/L High <=31 [facility] Comment on above: Result Comment: Hemo lysis present, Results??could be affected. ?? Performed By: #### L 500.3400, L501.9100, L500.2500, L501.2450, L501.5200, L100.0100, L501.4020 #### [facility] [address] [place], [address] Bilirubin [Mass/Vol] 7.28 mg/dL High 0.00-1.30 [facility] Comment on above: Performed By: #### L 500.3400, L501.9100, L500.2500, L501.2450, L501.5200, L100.0100, L501.4020 #### [facility] [address] [place], [address] BUN/CRE 6.2 RATIO Low 10-20 [facility] Comment on above: Performed By: #### L 500.3400, L501.9100, L500.2500, L501.2450, L501.5200, L100.0100, L501.4020 #### [facility] [address] [place], [address] Calcium [Mass/Vol] 8.5 mg/dL Normal 7.6-11.0 [facility] Comment on above: Performed By: #### L 500.3400, L501.9100, L500.2500, L501.2450, L501.5200, L100.0100, L501.4020 #### [facility] [address] [place], [address] Chloride [Moles/Vol] 97 mmol/L Low 98-108 [facility] Comment on above: Performed By: #### L 500.3400, L501.9100, L500.2500, L501.2450, L501.5200, L100.0100, L501.4020 #### [facility] [address] [place], [address] CO2 [Moles/Vol] 22.4 mmol/L Normal 21.0-32.0 [facility] Comment on above: Performed By: #### L 500.3400, L501.9100, L500.2500, L501.2450, L501.5200, L100.0100, L501.4020 #### [facility] [address] [place], [address] Creatinine [Mass/Vol] 0.72 mg/dL Normal 0.70-1.20 [facility] Comment on above: Result Comment: Icte ana lilia present, Results may be affected. Performed By: #### L 500.3400, L501.9100, L500.2500, L501.2450, L501.5200, L100.0100, L501.4020 #### [facility] [address] [place], [address] ECRCL 93.85 ml/min Normal 50-250 [facility] Comment on above: Performed By: #### L 500.3400, L501.9100, L500.2500, L501.2450, L501.5200, L100.0100, L501.4020 #### [facility] [address] [place], [address] GAP 13 Normal 5-15 [facility] Comment on above: Performed By: #### L 500.3400, L501.9100, L500.2500, L501.2450, L501.5200, L100.0100, L501.4020 #### [facility] [address] [place], [address] GFR/1.73 sq M.predicted among non-blacks MDRD (S/P/Bld) [Vol rate/Area] 98 mL/min/{1.73_m2} Normal >60 [facility] Comment on above: Result Comment: mL/m in/1.73m2 CKD-EPI Creatinine Equation (2020) Performed By: #### L 500.3400, L501.9100, L500.2500, L501.2450, L501.5200, L100.0100, L501.4020 #### [facility] [address] [place], [address] Globulin (S) [Mass/Vol] 3.1 g/dL Normal 2.2-4.2 [facility] Comment on above: Performed By: #### L 500.3400, L501.9100, L500.2500, L501.2450, L501.5200, L100.0100, L501.4020 #### [facility] [address] [place], [address] Glucose [Mass/Vol] 105 mg/dL High 70-99 [facility] Comment on above: Performed By: #### L 500.3400, L501.9100, L500.2500, L501.2450, L501.5200, L100.0100, L501.4020 #### [facility] [address] [place], [address] Potassium [Moles/Vol] 3.9 mmol/L Normal 3.3-5.1 [facility] Comment on above: Result Comment: Hemo lysis present, Results??could be affected. ?? Performed By: #### L 500.3400, L501.9100, L500.2500, L501.2450, L501.5200, L100.0100, L501.4020 #### [facility] [address] [place], [address] Sodium [Moles/Vol] 132 mmol/L Low 133-145 [facility] Comment on above: Performed By: #### L 500.3400, L501.9100, L500.2500, L501.2450, L501.5200, L100.0100, L501.4020 #### [facility] [address] [place], [address] T PROT 6.1 g/dL Normal 5.9-8.4 [facility] Comment on above: Performed By: #### L 500.3400, L501.9100, L500.2500, L501.2450, L501.5200, L100.0100, L501.4020 #### [facility] [address] [place], [address] Urea nitrogen [Mass/Vol] 5 mg/dL Normal 4-19 [facility] Comment on above: Performed By: #### L 500.3400, L501.9100, L500.2500, L501.2450, L501.5200, L100.0100, L501.4020 #### [facility] [address] [place], [address] Emergency Department Summary on 10-14-2024 Emergency Department Summary [facility] Medical Records Department [address] [place] [address] Emergency Department Summary 10/14/24 MR#: [id number] Acct: [id number] Name: ORA ADAMS Rep #: [id number] : 1970 53 From: Alvino Mercado DO PCP: AUGUSTINA Funes Status:REG ER Location: ED HPI History of Present Illness Chief Complaint: Chest Pain Narrative Narrative: Chief complaint and HPI: Chest pain. 53-year-old female with past medical history of alcoholic pancreatitis, breast cancer, HTN presents for evaluation of left sided chest pain. Patient states on Wednesday she had a mechanical fall on ice. She states she landed on her left side. She has bruises noted to the left arm. Did not hit her head. No LOC. Patient states she started having some left-sided chest pain around 1900. She states it radiates into her left arm and shoulder. It is located under her left breast and radiates to her left side. Describes it as crampy. Has not taken anything for the pain. She denies any shortness of breath, cough, lightheadedness, diaphoresis, nausea, vomiting. Patient states that she did have a lot of watery diarrhea today. She states on Wednesday she was having some epigastric abdominal pain and thinks she may have had a pancreatitis flare as she did have 4 alcoholic drinks last week. She states that she has had no alcohol since. She states that she is no longer a daily drinker. Denies any alcohol use today. Denies any dysuria, bilateral lower extremity swelling or pain. Review of systems: See HPI Medications: As listed on the chart Allergies: As listed on the chart PFSH: Per chart Vital signs: As listed on the chart. Reviewed. Physical exam: Gen: A O x3, NAD Head: Normocephalic, atraumatic Eyes: Mild sclera icterus, conjunctiva clear, PERRL, EOMI ENT: Moist mucous membranes Neck: Trachea midline, No JVD CV: RRR, no murmurs, patient has tenderness to palpation of the left lateral ribs-no ecchymosis or crepitus, no peripheral edema Resp: Lungs CTA BL, no w/r/c GI: Abd soft, non-distended, non-tender, no r/r/g Musc: Full ROM, no deformity, multiple old ecchymosis to the left upper extremity from her recent fall Skin: Warm, mildly jaundice Neuro: Alert, oriented, grossly intact, sensation intact Psych: Cooperative, appropriate mood and affect PFSH [facility] Medical History Alcohol abuse History of breast cancer HTN (hypertension) Hypothyroid Home Medications ???Medication ???Instructions ???Recorded ???Last Taken ???Type omeprazole 40 mg capsule,delayed 40 mg PO DAILY GERD 12/02/2005/27 History release levothyroxine 150 mcg tablet 150 mcg PO DAILY thyroid 02/20/24 05/27/24 History lorazepam 0.5 mg tablet (Ativan) 0.5 mg PO DAILY PRN sleep 05/28/24 05/28/24 History ondansetron 4 mg disintegrating 4 mg PO Q6H PRN PRN Nausea #15 tab s 05/28/24 Unknown Rx tablet potassium chloride 20 mEq 20 meq PO BID supplement #10 tabs 05/28/24 Unknown Rx tablet,extended release zolpidem 5 mg tablet 5 mg PO QHS PRN sleep 05/28/24 Unk nown History gabapentin 100 mg capsule 100 mg PO BID 10/14/24 Unknown His tory gabapentin 300 mg capsule 300 mg PO QHS PRN pain 10/14/24 Un known History Allergy/AdvReac Type Severity Reaction Status Date / Time Penicillins Allergy Hives Verified 10/14/24 02:20 Sulfa (Sulfonamide Allergy Hives Verified 10/14/24 02:20 Antibiotics) vancomycin Allergy Hives Verified 10/14/24 02:20 Family History Other Alcoholism Surgical History H/O mastectomy H/O: hysterectomy Social History Smoking Status: Former smoker EXAM Physical Exam Const Vital Signs: 10/14/24 02:20 10/14/24 02:20 10/14/24 02:25 Temperature 98.6 F 98.6 F Temperature Source Oral Oral Pulse Rate 95 93 Respiratory Rate 20 H 20 H Respiratory Effort Normal Blood Pressure 153/96 H 153/96 H Blood Pressure Mean 115 115 Pulse Ox 95 95 Oxygen Delivery Method Room Air Room Air 10/14/24 03:25 10/14/24 04:00 10/14/24 05:00 Temperature 98.6 F Temperature Source Oral Pulse Rate 91 80 81 Respiratory Rate 18 19 H 18 Respiratory Effort Blood Pressure 169/113 H 157/108 H 165/107 H Blood Pressure Mean 131 124 126 Pulse Ox 94 96 98 Oxygen Delivery Method Room Air Room Air Room Air 10/14/24 06:00 Temperature Temperature Source Pulse Rate 83 Respiratory Rate 16 Respiratory Effort Blood Pressure 143/90 H Blood Pressure Mean 107 Pulse Ox 94 Oxygen Delivery Method Room Air MDM MDM MDM Narrative Medical decision making na (more content not included)... Normal [facility] Eosinophil percentageOrdered By: Alvino Mercado on 10-14-2024 Eosinophils/100 WBC (Bld) 3.7 % 0-5 [facility] Epithelial cells.squamous LM Ql (Urine sed)Ordered By: Alvino Mercado on 10-14-2024 Epithelial cells.squamous LM.HPF (Urine sed) [#/Area] 0 /[HPF] 5-10 [facility] Erythrocyte distribution wid th ratioOrdered By: Alvino Mercado on 10-14-2024 Erythrocyte distribution width (RBC) [Ratio] 22.2 % High 11.6-14.6 [facility] Erythrocyte distribution wid th standard deviationOrdered By: Auburn Manolo Gamble on 10-14-2024 Erythrocyte distribution width (RBC) [Entitic vol] 77.2 fL High 35.1-43.9 [facility] Erythrocyte distribution width (RBC) [Ratio] 77.2 fl High 35.1-43.9 [facility] Estimation of creatinine fran aranceOrdered By: Alvino Mercado on 10-14-2024 Estimated Creatinine Clearance Calc 93.85 ml/min 50-250 [facility] Ethanol [Mass/Vol]Ordered By : Alvino Mercado on 10-14-2024 Ethyl Alcohol Level < 10.1 mg/dL <10.1 [facility] Comment on above: This test is for med ical purposes only. The legal definition of intoxication varies according to local law. GFR/1.73 sq M.predicted anderson g non-blacks MDRD (S/P/Bld) [Vol rate/Area]Ordered By: Alvino Mercado on 10-14-2024 Estimated GFR (MDRD) Non-Af Amer 98 >60 [facility] Comment on above: mL/min/1.73m2 CKD-EP I Creatinine Equation (2020) Glomerular filtration rate ( GFR) estimation/1.73 sq m using serum, plasma, or whole bOrdered By: Alvino Mercado on 10-14-2024 GFR/1.73 sq M.predicted among non-blacks MDRD (S/P/Bld) [Vol rate/Area] 98 mL/min/{1.73_m2} >60 [facility] Comment on above: mL/min/1.73m2 CKD-EP I Creatinine Equation (2020) Glucose Ql (U)Ordered By: Paco Mercado on 10-14-2024 Urine Glucose (UA) Normal mg/dl Normal [facility] Hematocrit Auto (Bld) [Volum e fraction]Ordered By: Alvino Mercado on 10-14-2024 Hematocrit (Bld) [Volume fraction] 34.9 % Low 37-47 [facility] Hemoglobin measurementOrdere d By: Alvino Mercado on 10-14-2024 Hemoglobin (Bld) [Mass/Vol] 12.0 g/dL 12.0-15.0 [facility] Immature granulocytes/100 WB C Auto (Bld)Ordered By: Alvino Mercado on 10-14-2024 Immature granulocytes/100 WBC (Bld) 0.600 % 0.0-0.9 [facility] Comment on above: IG% - Immature Granu locytes (promyelocytes, myelocytes and metamyelocytes) > 1% indicates that a LEFT SHIFT is Present. International normalized rat io (INR) calculationOrdered By: Alvino Mercado on 10-14-2024 INR Coag (Bld) [Relative time] 1.3 {INR} [facility] Ketones Test strip Ql (U)Ord ered By: Alvino Mercado on 10-14-2024 Ketones Ql (U) Negative Negative [facility] L499.0042on 10-14-2024 Trop T High Sen 19 ng/L High <=14 [facility] Comment on above: Performed By: #### L 500.3400, L501.9100, L500.2500, L501.2450, L501.5200, L100.0100, L501.4020 #### [facility] [address] [place], [address] L501.4021on 10-14-2024 Trop T High Sen 34 ng/L High <=14 [facility] Comment on above: Performed By: #### L 500.3400, L501.9100, L500.2500, L501.2450, L501.5200, L100.0100, L501.4020 #### [facility] [address] [place], [address] LABORATORYOrdered By: SYSTEM SYSTEM on 10-14-2024 Amylase [Catalytic activity/Vol] 38 U/L Normal 30 - 118 U/L ADM SS Comment on above: Interpretive Data: * *Note - New Reference Range in effect 20 Lactate [Moles/Vol] 1.1 mmol/L Normal 0.5 - 2. 2 mmol/L ADM SS Lipase [Catalytic activity/Vol] 71 U/L High 12 - 53 U/L ADM SS Comment on above: Interpretive Data: * *Note - New Reference Range in effect 20 Magnesium [Mass/Vol] 1.6 mg/dL Normal 1.6 - 2 .4 mg/dL ADM SS Troponin I.cardiac DL <= 0.01 ng/mL [Mass/Vol] 4 ng/L Normal 0 - 34 ng/L ADM SS Comment on above: Interpretive Data: High Sensitive Troponin I Reference Ranges: Female: 0-34 ng/L Male: 0-54 ng/L Testing performed on [employer] IM analyzer using direct chemiluminescent technology. TSH Qn 66.002 mIU/mL High 0.550 - 4.780 mIU/mL ADM SS LACon 10-14-2024 Lactic Acid Lvl 1.1 mmol/L Normal 0.5-2.2 [facility] Comment on above: Performed By: #### M G, TSH, FT4, PRO, GFR, ANEU, CBC, MORPH, PHOS, CMP, ADIFF, T3 #### [address] [address] LIPon 10-14-2024 Lipase Level 71 U/L High 12-53 [facility] Comment on above: Result Comment: No te - New Reference Range in effect 20 Performed By: #### M G, TSH, FT4, PRO, GFR, ANEU, CBC, MORPH, PHOS, CMP, ADIFF, T3 #### [place] [address] Laboratory - Chemistry and C hemistry - challengeOrdered By: Alvino Mercado on 10-14-2024 AST [Catalytic activity/Vol] 265 U/L High <32 [facility] Comment on above: Hemolysis present, R esults could be affected. Lipaseon 10-14-2024 Lipase [Catalytic activity/Vol] 112 U/L High 13-75 [facility] Comment on above: Result Comment: Plea se note: LIPASE revised reference range effective 22. New Lipase methodology. Expected to produce lower values than the previous assay method. NEW Reference Range: 13 - 75 U/L Performed By: #### L 500.3400, L501.9100, L500.2500, L501.2450, L501.5200, L100.0100, L501.4020 #### [facility] [address] [place], [address] Lipase measurementOrdered By : Alvino Mecrado on 10-14-2024 Lipase [Catalytic activity/Vol] 112 U/L High 13-75 [facility] Comment on above: Please note:LIPASE r evised reference range effective 22. New Lipase methodology. Expected to produce lower values than the previous assay method. NEW Reference Range: 13 - 75 U/L Liver Profileon 10-14-2024 Albumin [Mass/Vol] 3.0 g/dL Low 3.5-5.0 [facility] Comment on above: Performed By: #### L 500.3400, L501.9100, L500.2500, L501.2450, L501.5200, L100.0100, L501.4020 #### [facility] [address] [place], [address] ALK PHOS 261 U/L High 35-104 [facility] Comment on above: Performed By: #### L 500.3400, L501.9100, L500.2500, L501.2450, L501.5200, L100.0100, L501.4020 #### [facility] [address] [place], [address] ALT [Catalytic activity/Vol] 68 U/L High <=34 [facility] Comment on above: Performed By: #### L 500.3400, L501.9100, L500.2500, L501.2450, L501.5200, L100.0100, L501.4020 #### [facility] [address] [place], [address] AST [Catalytic activity/Vol] 265 U/L High <=31 [facility] Comment on above: Result Comment: Hemo lysis present, Results??could be affected. ?? Performed By: #### L 500.3400, L501.9100, L500.2500, L501.2450, L501.5200, L100.0100, L501.4020 #### [facility] [address] [place], [address] Bilirubin [Mass/Vol] 7.32 mg/dL High 0.00-1.30 [facility] Comment on above: Performed By: #### L 500.3400, L501.9100, L500.2500, L501.2450, L501.5200, L100.0100, L501.4020 #### [facility] [address] [place], [address] Bilirubin.direct [Mass/Vol] 4.72 mg/dL High 0.00-0.30 [facility] Comment on above: Result Comment: Hemo lysis present, Results??could be affected. ?? Performed By: #### L 500.3400, L501.9100, L500.2500, L501.2450, L501.5200, L100.0100, L501.4020 #### [facility] [address] [place], [address] Globulin (S) [Mass/Vol] 3.1 g/dL Normal 2.2-4.2 [facility] Comment on above: Performed By: #### L 500.3400, L501.9100, L500.2500, L501.2450, L501.5200, L100.0100, L501.4020 #### [facility] [address] [place], [address] T PROT 6.1 g/dL Normal 5.9-8.4 [facility] Comment on above: Performed By: #### L 500.3400, L501.9100, L500.2500, L501.2450, L501.5200, L100.0100, L501.4020 #### [facility] [address] [place], [address] Lymphocytes Auto (Unsp spec) [#/Vol]Ordered By: Alvino Mercado on 10-14-2024 Lymphocytes (Bld) [#/Vol] 1.65 10*3/uL 0.83-4.51 [facility] Lymphocytes/100 WBC Auto (Un sp spec)Ordered By: Alvino Mercado on 10-14-2024 Lymphocytes/100 WBC (Bld) 26.2 % 19-41 [facility] MCV (mean corpuscular volume ) determinationOrdered By: Alvino Mercado on 10-14-2024 MCV (RBC) [Entitic vol] 99.4 fL High 81-99 [facility] MGon 10-14-2024 Magnesium [Mass/Vol] 1.6 mg/dL Normal 1.6-2.4 [facility] Comment on above: Performed By: #### M G, TSH, FT4, PRO, GFR, ANEU, CBC, MORPH, PHOS, CMP, ADIFF, T3 #### [place] [address] Mean corpuscular hemoglobin (MCH) determinationOrdered By: Alvino Jess on 10-14-2024 MCH (RBC) [Entitic mass] 34.2 pg High 27.0-32.0 [facility] Mean corpuscular hemoglobin concentration (MCHC) determinationOrdered By: Alvino Mercado on 10-14-2024 MCHC (RBC) [Mass/Vol] 34.4 g/dL 32-36 [facility] Mean platelet volume determi nationOrdered By: Alvino Mercado on 10-14-2024 Platelet mean volume (Bld) [Entitic vol] 9.2 fL 6.2-12.0 [facility] Microscopic analysis of urin e for red blood cells (RBC)Ordered By: Alvino Mercado on 10-14-2024 Microscopic analysis of urine for red blood cells (RBC) 0 SEEN /hpf 0-5 [facility] Urine RBC 0 SEEN /hpf 0-5 [facility] Monocyte percentageOrdered B y: Alvino Mercado on 10-14-2024 Monocytes/100 WBC (Bld) 11.0 % High 0-10 [facility] Mucus LM Ql (Urine sed)Order ed By: Alvino Mercado on 10-14-2024 Mucus Ql (Urine sed) 0 SEEN /hpf [facility] Neutrophil percentageOrdered By: Alvino Mercado on 10-14-2024 Neutrophils/100 WBC (Bld) 57.2 % 47-70 [facility] Nitrite Test strip Ql (U)Ord ered By: Alvino Mercado on 10-14-2024 Nitrite Ql (U) Negative Negative [facility] No Panel InformationOrdered By: Alvino Mercado on 10-14-2024 Troponin T High Sensitivity 34 ng/L High <14 [facility] Nucleated red blood cell per centageOrdered By: Alvino Mercado on 10-14-2024 Nucleated RBC/100 WBC (Bld) [Ratio] 0.3 % 0-5 [facility] Platelet countOrdered By: Paco Mercado on 10-14-2024 Platelets (Bld) [#/Vol] 214 10*3/uL 150-450 [facility] Potassium (Unsp spec) [Mass/ Vol]Ordered By: Alvino Mercado on 10-14-2024 Potassium [Moles/Vol] 3.9 mmol/L 3.3-5.1 [facility] Comment on above: Hemolysis present, R esults could be affected. Potassium measurement (mass/ volume)Ordered By: Alvino Mercado on 10-14-2024 Potassium (Unsp spec) [Mass/Vol] 3.9 mmol/L 3.3-5.1 [facility] Comment on above: Hemolysis present, R esults could be affected. Protein Test strip Ql (U)Ord ered By: Alvino Mercado on 10-14-2024 Protein Ql (U) 30 mg/dl High Negative [facility] Prothrombin Time w/INRon INR Coag (PPP) [Relative time] 1.3 {INR} Normal [facility] Comment on above: Performed By: #### L 500.3400, L501.9100, L500.2500, L501.2450, L501.5200, L100.0100, L501.4020 #### [facility] [address] [place], [address] PT Coag (PPP) [Time] 16.0 s High 11.7-14.9 [facility] Comment on above: Performed By: #### L 500.3400, L501.9100, L500.2500, L501.2450, L501.5200, L100.0100, L501.4020 #### [facility] [address] [place], [address] Prothrombin timeOrdered By: Alvino Mercado on 10-14-2024 PT Coag (PPP) [Time] 16.0 s High 11.7-14.9 [facility] RBC Auto (Bld) [#/Vol]Ordere d By: Alvino Mercado on 10-14-2024 RBC (Bld) [#/Vol] 3.51 10*6/uL Low 4.2-5.4 [facility] Ribs Uni Min 3V w/PA Cheston 10-14-2024 Ribs Uni Min 3V w/PA Chest [facility] Imaging Services [address] [place], [place] [id number] Ribs Uni Min 3V w/PA Chest MR#: [id number] Acct: [id number] Name: ORA ADAMS Fanny Rep #: [id number] : 1970 F 53 From: Сергей Rivera MD PCP: AUGUSTINA Funes Status: PRE ER Study: Ribs Uni Min 3V w/PA Chest Date of Exam: 10/14 Exam# [id number] Ordering Dr: Alvino Mercado DO PROCEDURE: RIBS UNI MIN 3V W/PA CHEST 10/14/2024 REASON FOR EXAM: PAIN, FALL TECHNIQUE: PA view of the chest and 4 views of the left ribs. COMPARISON: None FINDINGS: Anterolateral left 5th and 6th rib fracture deformities, correlate for age/focal tenderness. Old lateral right 9th rib fracture deformity. The lungs appear clear. No pneumothorax or pleural effusion identified at this time. The cardiac and mediastinal contours appear within limits. Soft tissue surgical clips noted. RAD/Ribs Uni Min 3V w/PA Chest IMPRESSION: Anterolateral left 5th and 6th rib fracture deformities, correlate for age/focal tenderness. No pneumothorax or pleural effusion identified at this time. Reading Location: [id number] CC: AUGUSTINA Woodson; Dr. Alvino Mercado, Civil Process Server: Signed Normal [facility] Serum creatinine measurement (mass/volume)Ordered By: Alvino Mercado on 10-14-2024 Creatinine [Mass/Vol] 0.72 mg/dL 0.70-1.20 [facility] Comment on above: Icterus present, Res ults may be affected. Serum globulin measurementOr dered By: Alvino Mercado on 10-14-2024 Globulin (S) [Mass/Vol] 3.1 g/dL 2.2-4.2 [facility] Serum glucose measurement (m ass/volume)Ordered By: Alvino Mercado on 10-14-2024 Glucose [Mass/Vol] 105 mg/dL High 70-99 [facility] Serum or plasma alanine stevenson otransferase (ALT) measurementOrdered By: Alvino Mercado on 10-14-2024 ALT [Catalytic activity/Vol] 68 U/L High <35 [facility] Serum or plasma albumin tammie urement (mass/volume)Ordered By: Alvino Gamble on 10-14-2024 Albumin [Mass/Vol] 3.0 g/dL Low 3.5-5.0 [facility] Serum or plasma albumin/glob ulin mass ratioOrdered By: Alvino Mercado on 10-14-2024 Albumin/Globulin [Mass ratio] 1.0 {ratio} 0.9-2.4 [facility] Serum or plasma alkaline milad sphatase measurementOrdered By: Alvino Mercado on 10-14-2024 ALP [Catalytic activity/Vol] 261 U/L High 35-104 [facility] Serum or plasma calcium tammie urement (mass/volume)Ordered By: Alvino Gamble on 10-14-2024 Calcium [Mass/Vol] 8.5 mg/dL 7.6-11.0 [facility] Serum or plasma ethanol tammie urement (mass/volume)Ordered By: Alvino Gamble on 10-14-2024 Ethanol [Mass/Vol] mg/dL <10.1 [facility] Comment on above: This test is for med ical purposes only. The legal definition of intoxication varies according to local law. Serum or plasma urea nitroge n measurement (mass/volume)Ordered By: Alvino Mercado on 10-14-2024 Urea nitrogen [Mass/Vol] 5 mg/dL 4-19 [facility] Sodium levelOrdered By: Jorge Mercado on 10-14-2024 Sodium [Moles/Vol] 132 mmol/L Low 133-145 [facility] Squamous epithelial cells de tection in urine sediment by light microscopyOrdered By: Alvino Mercado on 10-14-2024 Epithelial cells.squamous LM Ql (Urine sed) 0 SEEN /hpf 5-10 [facility] Stomatocytes LM Ql (Bld)Orde red By: Alvino Mercado on 10-14-2024 Stomatocytes 2+ [facility] TROPHSon 10-14-2024 High Sensitivity Troponin I 4 ng/L Normal 0-34 [facility] Comment on above: Result Comment: High Sensitive Troponin I Reference Ranges: Female: 0-34 ng/L Male: 0-54 ng/L Testing performed on [employer] analyzer using direct chemiluminescent technology. Performed By: #### M G, TSH, FT4, PRO, GFR, ANEU, CBC, MORPH, PHOS, CMP, ADIFF, T3 #### [facility] [address] [place] [address] TSHon 10-14-2024 TSH 66.002 mIU/mL High 0.550-4.78 0 [facility] Comment on above: Performed By: #### M G, TSH, FT4, PRO, GFR, ANEU, CBC, MORPH, PHOS, CMP, ADIFF, T3 #### [place] [address] Total proteinOrdered By: Kayode Mercado on 10-14-2024 Protein [Mass/Vol] 6.1 g/dL 5.9-8.4 [facility] Troponin T.cardiac High sens itivity method [Mass/Vol]Ordered By: Alvino Gamble on 10-14-2024 Troponin T High Sensitivity 2 Hour 19 ng/L High <14 [facility] Troponin T.cardiac [Mass/vol ume] in Serum or Plasma by High sensitivity methodOrdered By: Alvino Mercado on 10-14-2024 Troponin T.cardiac High sensitivity method [Mass/Vol] 19 ng/L High <14 [facility] Urinalysis, Completeon 10-14 RBC 0 SEEN Normal 0-5 [facility] Comment on above: Order Comment: 'TROP ' Serial specimen #1, #2 or #3: 1 Performed By: #### L 500.3400, L501.9100, L500.2500, L501.2450, L501.5200, L100.0100, L501.4020 #### [facility] [address] [place], [address] BACTERIA 0 SEEN Normal None Seen [facility] Comment on above: Order Comment: 'TROP ' Serial specimen #1, #2 or #3: 1 Performed By: #### L 500.3400, L501.9100, L500.2500, L501.2450, L501.5200, L100.0100, L501.4020 #### [facility] [address] [place], [address] EPI,SQUAMOUS 0 SEEN Normal 5-10 [facility] Comment on above: Order Comment: 'TROP ' Serial specimen #1, #2 or #3: 1 Performed By: #### L 500.3400, L501.9100, L500.2500, L501.2450, L501.5200, L100.0100, L501.4020 #### [facility] [address] [place], [place], [id number] (695) Mucus Ql (Urine sed) 0 SEEN Normal [facility] Comment on above: Order Comment: 'TROP ' Serial specimen #1, #2 or #3: 1 Performed By: #### L 500.3400, L501.9100, L500.2500, L501.2450, L501.5200, L100.0100, L501.4020 #### [facility] [address] [place], [place], [id number] WBC 0 SEEN Normal 0-5 [facility] Comment on above: Order Comment: 'TROP ' Serial specimen #1, #2 or #3: 1 Performed By: #### L 500.3400, L501.9100, L500.2500, L501.2450, L501.5200, L100.0100, L501.4020 #### [facility] [address] [place], [place], [address] Urine blood detectionOrdered By: Alvino Mercado on 10-14-2024 Urine Occult Blood 10 /ul High Negative [facility] Urine clarityOrdered By: Kayode Mercado on 10-14-2024 Clarity (U) Clear Clear [facility] Urine color determinationOrd ered By: Alvino Mercado on 10-14-2024 Color (U) Yellow Yellow [facility] Urine glucose detectionOrder ed By: Alvino Mercado on 10-14-2024 Glucose Ql (U) Normal mg/dl Normal [facility] Urine leukocyte esterase det ection by dipstickOrdered By: Alvino Mercado on 10-14-2024 Leukocyte esterase Test strip Ql (U) Negative Negative [facility] Urine pHOrdered By: Alvino Alarcon on 10-14-2024 pH (U) 7.0 [pH] 5.0 - 8.0 [facility] Urine sediment bacteria coun t by microscopy (number/high power field)Ordered By: Alvino Mercado on 10-14-2024 Bacteria LM.HPF (Urine sed) [#/Area] 0 /[HPF] None Seen [facility] Urine specific gravity measu rementOrdered By: Alvino alanTye on 10-14-2024 Specific gravity (U) [Rel density] 1.010 1.002-1.03 0 [facility] Urine urobilinogen measureme ntOrdered By: Auburn Jess on 10-14-2024 Urobilinogen Ql (U) 4 mg/dl High Normal [facility] Urobilinogen Ql (U)Ordered B y: Alvino Mercado on 10-14-2024 Urobilinogen (U) [Mass/Vol] 4 mg/dL High Normal [facility] White blood cell (WBC) count Ordered By: Alvino Mercado on 10-14-2024 WBC (Bld) [#/Vol] 6.3 10*3/uL 4.4-11.0 [facility] White blood cell countOrdere d By: Alvino Mercado on 10-14-2024 Urine WBC 0 SEEN /hpf 0-5 [facility] White blood cell count 0 SEEN /hpf 0-5 [facility] Discharge Instructionon Discharge Instruction [facility] Medical Records Department [address] [place] [address] Instructions for Home/Discharge Instructions 07/26/24 0939 MR#: [id number] Acct: [id number] Name: ORA ADAMS Rep #: [id number] : 1970 53 From: Ash Oneil MD PCP: AUGUSTINA Funes Status:ADM IN Discharge Instructions Diet Discharge Diet: No restrictions DC O2, CPAP, BIPAP needs Home O2 Discharge instructions: No Dressing / Incision Discharge Activity: Return to Normal Activity Dressing / Incision Call your doctor if you observe: Fever of 101 or Higher, Shortness of breath, Dizziness, Fainting spells, Swelling in the ankles, Chest pain and Increased palpitations (irregular heartbeat) Follow Up Care Test Results: Test results from this visit will be discussed in further detail at your follow-up appointment, if applicable. Discharge Plan Admission Admit Date/Time: 07/24/24 19:27 Attending Provider: Ash Oneil Primary Care Provider: Alirio Woodson NP Consulting Providers: Dung Gómez Instructions Forms: Work / School Excuse Discharge Orders/Prescriptions Prescriptions: Continued omeprazole 40 mg capsule,delayed release(DR/EC) 40 mg PO DAILY levothyroxine 150 mcg tablet 150 mcg PO DAILY zolpidem 5 mg tablet 5 mg PO QHS PRN lorazepam [Ativan] 0.5 mg tablet 0.5 mg PO DAILY PRN (Reason: sleep) ondansetron 4 mg tablet,disintegrating 4 mg PO Q6H PRN PRN (Reason: Nausea) Qty: 15 0RF potassium chloride 20 mEq tablet extended release 20 meq PO BID Qty: 10 0RF Referrals / Follow Up: Alirio Woodson NP, [facility] [Primary Care Provider] - Within 1 Week Disposition Disposition (needs filled in before D/C Order can be placed): Home, Self Care 07/26/24 0941 Ash Oneil MD CC: AUGUSTINA Woodson; Dr. Dung Gómez DO Signed Normal [facility] Basic Metabolic Profile (BMP )on 07-25-2024 BUN/CRE 4.2 RATIO Low 10-20 [facility] Comment on above: Performed By: #### L 500.3400, L501.9100, L500.2500, L501.2450, L501.5200, L100.0100, L501.4020 #### [facility] [address] [place], [address] CA,Total 8.2 mg/dL Low 8.5-10.1 [facility] Comment on above: Performed By: #### L 500.3400, L501.9100, L500.2500, L501.2450, L501.5200, L100.0100, L501.4020 #### [facility] [address] [place], [address] Chloride [Moles/Vol] 98 mmol/L Normal 98-107 [facility] Comment on above: Performed By: #### L 500.3400, L501.9100, L500.2500, L501.2450, L501.5200, L100.0100, L501.4020 #### [facility] [address] [place], [address] CO2 [Moles/Vol] 25.0 mmol/L Normal 21.0-32.0 [facility] Comment on above: Performed By: #### L 500.3400, L501.9100, L500.2500, L501.2450, L501.5200, L100.0100, L501.4020 #### [facility] [address] [place], [place], [phone] Creatinine [Mass/Vol] 0.71 mg/dL Normal 0.55-1.02 [facility] Comment on above: Result Comment: The validity of the calculated GFR GFRAA in patients over 70 years has not been determined. Clinical correlation is essential. Performed By: #### L 500.3400, L501.9100, L500.2500, L501.2450, L501.5200, L100.0100, L501.4020 #### [facility] [address] [place], [place], [phone] ECRCL 92.91 ml/min Normal [facility] Comment on above: Performed By: #### L 500.3400, L501.9100, L500.2500, L501.2450, L501.5200, L100.0100, L501.4020 #### [facility] [address] [place], [address] EST GFR - AA 110 mL/min Normal >60 [facility] Comment on above: Result Comment: Afri can English GFR Calc Performed By: #### L 500.3400, L501.9100, L500.2500, L501.2450, L501.5200, L100.0100, L501.4020 #### [facility] [address] [place], [address] GAP 9 Normal 5-15 [facility] Comment on above: Performed By: #### L 500.3400, L501.9100, L500.2500, L501.2450, L501.5200, L100.0100, L501.4020 #### [facility] [address] [place], [address] GFR/1.73 sq M.predicted among non-blacks MDRD (S/P/Bld) [Vol rate/Area] 91 mL/min/{1.73_m2} Normal >60 [facility] Comment on above: Result Comment: Non- GFR Calc Performed By: #### L 500.3400, L501.9100, L500.2500, L501.2450, L501.5200, L100.0100, L501.4020 #### [facility] [address] [place], [address] Glucose [Mass/Vol] 100 mg/dL Normal 74-106 [facility] Comment on above: Result Comment: Fast ing Glucose result from 100 to 125 mg/dL suggests IMPAIRED HOMEOSTASIS per A.D.A. criteria. Performed By: #### L 500.3400, L501.9100, L500.2500, L501.2450, L501.5200, L100.0100, L501.4020 #### [facility] [address] [place], [address] Potassium [Moles/Vol] 3.5 mmol/L Normal 3.5-5.1 [facility] Comment on above: Performed By: #### L 500.3400, L501.9100, L500.2500, L501.2450, L501.5200, L100.0100, L501.4020 #### [facility] [address] [place], [address] Sodium [Moles/Vol] 132 mmol/L Low 136-145 [facility] Comment on above: Performed By: #### L 500.3400, L501.9100, L500.2500, L501.2450, L501.5200, L100.0100, L501.4020 #### [facility] [address] [place], [address] Urea nitrogen [Mass/Vol] 3 mg/dL Low 7-18 [facility] Comment on above: Performed By: #### L 500.3400, L501.9100, L500.2500, L501.2450, L501.5200, L100.0100, L501.4020 #### [facility] [address] [facility] [place], [address] Blood urea nitrogen (BUN)/cr eatinine ratioOrdered By: Dung Gómez on 07-25-2024 Urea nitrogen/Creatinine [Mass ratio] 4.2 mg/mg Low 10-20 [facility] Carbon dioxide measurementOr dered By: Dung Gómez on 07-25-2024 CO2 [Moles/Vol] 25.0 mmol/L 21.0-32.0 [facility] Chloride measurementOrdered By: Dung Gómez on 07-25-2024 Chloride [Moles/Vol] 98 mmol/L 98-107 [facility] Estimated glomerular filtrat ion rate (GFR) AmericanOrdered By: Dung Gómez on 07-25-2024 Estimated GFR (MDRD) Amer 110 mL/min >60 [facility] Comment on above: GFR Calc Estimation of creatinine fran aranceOrdered By: Dung Gómez on 07-25-2024 Estimated Creatinine Clearance Calc 92.91 ml/min [facility] Glomerular filtration rate ( GFR) estimationOrdered By: Dung Gómez on 07-25-2024 Estimated GFR (MDRD) Non-Af Amer 91 mL/min >60 [facility] Comment on above: Non- GFR Calc Glucose measurementOrdered B y: Dung Gómez on 07-25-2024 Glucose [Mass/Vol] 100 mg/dL 74-106 [facility] Comment on above: Fasting Glucose resu lt from 100 to 125 mg/dL suggests IMPAIRED HOMEOSTASIS per A.D.A. criteria. Magnesiumon 07-25-2024 Magnesium [Mass/Vol] 2.0 mg/dL Normal 1.6-2.6 [facility] Comment on above: Performed By: #### L 500.3400, L501.9100, L500.2500, L501.2450, L501.5200, L100.0100, L501.4020 #### [facility] [address] [place], [address] Magnesium measurementOrdered By: Dung Gómez on 07-25-2024 Magnesium [Mass/Vol] 2.0 mg/dL 1.6-2.6 [facility] Potassium measurementOrdered By: Dung Gómez on 07-25-2024 Potassium [Moles/Vol] 3.5 mmol/L 3.5-5.1 [facility] Serum anion gap measurementO rdered By: Dung Gómez on 07-25-2024 Anion gap [Moles/Vol] 9 mmol/L 5-15 [facility] Serum or plasma calcium tammie urement (mass/volume)Ordered By: Dung Gómez on 07-25-2024 Calcium [Mass/Vol] 8.2 mg/dL Low 8.5-10.1 [facility] Serum or plasma creatinine m easurement (mass/volume)Ordered By: Dung Gómez on 07-25-2024 Creatinine [Mass/Vol] 0.71 mg/dL 0.55-1.02 [facility] Comment on above: The validity of the calculated GFR & GFRAA in patients over 70 years has not been determined. Clinical correlation is essential. Serum or plasma urea nitroge n measurement (mass/volume)Ordered By: Dung Gómez on 07-25-2024 Urea nitrogen [Mass/Vol] 3 mg/dL Low 7-18 [facility] Sodium levelOrdered By: Dung Gómez on 07-25-2024 Sodium [Moles/Vol] 132 mmol/L Low 136-145 [facility] Absolute neutrophil countOrd ered By: Alvino Mercado on 07-24-2024 Neutrophils (Bld) [#/Vol] 1.9 10*3/uL Low 2.0-7.7 [facility] Alcohol, Blood (Medical)-Ser umon 07-24-2024 SERUM ETOH 364.0 mg/dL Invalid Interpretation Code [facility] Comment on above: Result Comment: The serum:whole blood ethanol ratio is approximately 1.14 and varies slightly with hematocrit. Medical Alcohol reference interval and critical value in non-tolerant individuals; 50 - 100 Impairment 100 Intoxication 100 - 250 Severe Poisoning 250 - 400 Deep/possible fatal coma Performed By: #### L 500.3400, L501.9100, L500.2500, L501.2450, L501.5200, L100.0100, L501.4020 #### [facility] [address] [place], [place], [phone]) Basic Metabolic Profile (BMP )on 07-24-2024 BUN/CRE 2.7 RATIO Low 10-20 [facility] Comment on above: Performed By: #### L 500.3400, L501.9100, L500.2500, L501.2450, L501.5200, L100.0100, L501.4020 #### [facility] [address] [place], [place], [phone] CA,Total 8.1 mg/dL Low 8.5-10.1 [facility] Comment on above: Performed By: #### L 500.3400, L501.9100, L500.2500, L501.2450, L501.5200, L100.0100, L501.4020 #### [facility] [address] [place], [place], [phone] ([phone] Chloride [Moles/Vol] 90 mmol/L Low 98-107 [facility] Comment on above: Performed By: #### L 500.3400, L501.9100, L500.2500, L501.2450, L501.5200, L100.0100, L501.4020 #### [facility] [address] [place], [address] CO2 [Moles/Vol] 29.0 mmol/L Normal 21.0-32.0 [facility] Comment on above: Performed By: #### L 500.3400, L501.9100, L500.2500, L501.2450, L501.5200, L100.0100, L501.4020 #### [facility] [address] [place], [address] Creatinine [Mass/Vol] 0.73 mg/dL Normal 0.55-1.02 [facility] Comment on above: Result Comment: The validity of the calculated GFR GFRAA in patients over 70 years has not been determined. Clinical correlation is essential. Performed By: #### L 500.3400, L501.9100, L500.2500, L501.2450, L501.5200, L100.0100, L501.4020 #### [facility] [address] [place], [address] ECRCL 102.05 ml/min Normal [facility] Comment on above: Performed By: #### L 500.3400, L501.9100, L500.2500, L501.2450, L501.5200, L100.0100, L501.4020 #### [facility] [address] [place], [address] EST GFR - AA 106 mL/min Normal >60 [facility] Comment on above: Result Comment: Afri can English GFR Calc Performed By: #### L 500.3400, L501.9100, L500.2500, L501.2450, L501.5200, L100.0100, L501.4020 #### [facility] [address] [place], [address] GAP 11 Normal 5-15 [facility] Comment on above: Performed By: #### L 500.3400, L501.9100, L500.2500, L501.2450, L501.5200, L100.0100, L501.4020 #### [facility] [address] [place], [address] GFR/1.73 sq M.predicted among non-blacks MDRD (S/P/Bld) [Vol rate/Area] 88 mL/min/{1.73_m2} Normal >60 [facility] Comment on above: Result Comment: Non- GFR Calc Performed By: #### L 500.3400, L501.9100, L500.2500, L501.2450, L501.5200, L100.0100, L501.4020 #### [facility] [address] [place], [address] Glucose [Mass/Vol] 124 mg/dL High 74-106 [facility] Comment on above: Result Comment: Fast ing Glucose result from 100 to 125 mg/dL suggests IMPAIRED HOMEOSTASIS per A.D.A. criteria. Performed By: #### L 500.3400, L501.9100, L500.2500, L501.2450, L501.5200, L100.0100, L501.4020 #### [facility] [address] [place], [address] Potassium [Moles/Vol] 2.8 mmol/L Low 3.5-5.1 [facility] Comment on above: Performed By: #### L 500.3400, L501.9100, L500.2500, L501.2450, L501.5200, L100.0100, L501.4020 #### [facility] [address] [place], [address] Sodium [Moles/Vol] 130 mmol/L Low 136-145 [facility] Comment on above: Performed By: #### L 500.3400, L501.9100, L500.2500, L501.2450, L501.5200, L100.0100, L501.4020 #### [facility] [address] [place], [address] Urea nitrogen [Mass/Vol] 2 mg/dL Low 7-18 [facility] Comment on above: Performed By: #### L 500.3400, L501.9100, L500.2500, L501.2450, L501.5200, L100.0100, L501.4020 #### [facility] [address] [place], [address] Basophil percentageOrdered B y: Alvino Mercado on 07-24-2024 Basophils/100 WBC (Bld) 2.4 % High 0-1 [facility] Bilirubin directOrdered By: Alvino Mercado on 07-24-2024 Bilirubin.direct [Mass/Vol] 0.74 mg/dL High 0.00-0.30 [facility] Bilirubin, totalOrdered By: Alvino Mercado on 07-24-2024 Bilirubin [Mass/Vol] 2.00 mg/dL High 0.20-1.00 [facility] Comment on above: For patients on eltr ombopag therapy, use of Dimension [place] TBIL is not recommended. Brain/Head without Contrasto n 07-24-2024 Brain/Head without Contrast [facility] Imaging Services [address] [place], [place] [phone] Brain/Head without Contrast MR#: [id number] Acct: [id number] Name: ORA ADAMS Fanny Rep #: [id number] : 1970 F 53 From: Raymond koch MD PCP: AUGUSTINA Funes Status: REG ER Study: Brain/Head without Contrast Date of Exam: 06/27 0 Exam# [id number] Ordering Dr: Alvino Mercado DO [id number] STUDY: CT BRAIN WITHOUT CONTRAST REASON FOR EXAM: Female, 53 years old. Trauma RADIATION DOSAGE (If Supplied By Facility): CTDIvol = ( 44.99 ) mGy, DLP = ( 745.49 ) mGycm TECHNIQUE: Transaxial CT imaging of the brain was performed without administration of intravenous contrast material. Individualized dose optimization techniques were used for this CT. COMPARISON: 12/02/2020 FINDINGS: Normal soft tissue structures. Normal calvarium. Normal size ventricles and extra-axial spaces for the patient''s age. Normal white matter tracts of the cerebral hemispheres. There are small punctate calcifications of the basal ganglia which are seen in the aging brain as a normal variant. Normal brainstem. Normal cerebellum. There is no intracranial hemorrhage. There are no findings of an acute ischemic infarction. There is mucoperiosteal inflammatory disease of the paranasal sinuses consistent with mild chronic sinusitis. CT/Brain/Head without Contrast IMPRESSION: No definite acute or significant abnormality seen. Electronically Signed: Raymond Leon MD at 18:40 EST , CC: AUGUSTINA Woodson; Dr. Alvino Mercado DO Civil Process Server: Signed Normal [facility] CBC W/Diff, Automatedon 12-3 Anisocytosis Ql (Bld) 1+ Normal [facility] Comment on above: Performed By: #### L 500.3400, L501.9100, L500.2500, L501.2450, L501.5200, L100.0100, L501.4020 #### [facility] [address] [place], [place], [phone] MACROCYTOSIS 1+ Normal [facility] Comment on above: Performed By: #### L 500.3400, L501.9100, L500.2500, L501.2450, L501.5200, L100.0100, L501.4020 #### [facility] [address] [place], [address] PLT EST ADEQUATE Normal ADEQ [facility] Comment on above: Performed By: #### L 500.3400, L501.9100, L500.2500, L501.2450, L501.5200, L100.0100, L501.4020 #### [facility] [address] [place], [address] RED CELL MORPH N CHROM Normal NORM C C [facility] Comment on above: Performed By: #### L 500.3400, L501.9100, L500.2500, L501.2450, L501.5200, L100.0100, L501.4020 #### [facility] [address] [place], [address] Emergency Department Summary on 07-24-2024 Emergency Department Summary [facility] Medical Records Department [address] [place] [address] Emergency Department Summary 07/24/24 MR#: [id number] Acct: [id number] Name: ORA ADAMS Rep #: [id number] : 1970 53 From: Alvino Mercado DO PCP: AUGUSTINA Funes Status:ADM IN Location: [facility] YE053-8 HPI History of Present Illness Chief Complaint: Substance Abuse Narrative Narrative: Chief complaint and HPI: Alcohol detox. 53-year-old female with past medical history of hypothyroidism and alcoholism presents for alcohol detox. Patient has had alcohol detox in the past here in our hospital. She denies any history of seizures with detox. Her last alcoholic drink was prior to arrival. She drinks daily and vodka. She also endorses a loss of taste and smell about a week ago and nasal congestion. She is concerned she may have COVID. She states her symptoms are improving. She denies any fever, cough, shortness of breath, chest pain, abdominal pain, nausea, vomiting, dysuria. Denies any other illicit drug use. Of note, patient was a rapid response outside given that she fell off of a curb. She does not know if she hit her head. Denying any headache, neck pain, back pain, extremity pain. Has no complaints from the fall. Review of systems: See HPI Medications: As listed on the chart Allergies: As listed on the chart PFSH: Per chart Vital signs: As listed on the chart. Reviewed. Physical exam: Gen: A O x3 but intoxicated, NAD Head: Normocephalic, atraumatic Eyes: No sclera icterus, conjunctiva clear, PERRL, EOMI ENT: TMs clear BL-ear tube in the right ear, moist mucous membranes, no swelling/lacerations/bloo d in the mouth or the nares, No nasal septal hematoma, no facial tenderness Neck: Trachea midline, No JVD, Nontender CV: RRR, no murmurs, no chest wall TTP Resp: Lungs CTA BL, no w/r/c GI: Abd soft, non-distended, non-tender, no r/r/g Musc: Full ROM, no deformity, no spinal TTP, no magdy step-offs Skin: Warm, dry, intact Neuro: Alert, oriented, grossly intact, sensation intact, GCS 15 but intoxicated Psych: Cooperative, appropriate mood and affect [facility] Medical History Alcohol abuse History of breast cancer HTN (hypertension) Hypothyroid Home Medications ???Medication ???Instructions ???Recorded ???Last Taken ???Type omeprazole 40 mg capsule,delayed 40 mg PO DAILY GERD 12/02/20 05/27/24 History release levothyroxine 150 mcg tablet 150 mcg PO DAILY thyroid 02/20/24 05/27/24 History lorazepam 0.5 mg tablet (Ativan) 0.5 mg PO DAILY PRN sleep 05/28/24 05/28/24 History ondansetron 4 mg disintegrating 4 mg PO Q6H PRN PRN Nausea #15 tabs 05/28/24 Unknown Rx tablet potassium chloride 20 mEq 20 meq PO BID supplement #10 tabs 05/28/24 Unknown Rx tablet,extended release zolpidem 5 mg tablet 5 mg PO QHS PRN sleep 05/28/24 Unknown History Allergy/AdvReac Type Severity Reaction Status Date / Time Penicillins Allergy Hives Verified 07/24/24 14:13 Sulfa (Sulfonamide Allergy Hives Verified 07/24/24 14:13 Antibiotics) vancomycin Allergy Hives Verified 07/24/24 14:13 Family History (Updated 07/24/24 @ 19:[address] Dung Gómez DO) Other Alcoholism Surgical History H/O mastectomy H/O: hysterectomy Social History Smoking Status: Former smoker EXAM Physical Exam Const Vital Signs: 07/24/24 14:07 07/24/24 15:06 07/24/24 16:02 Temperature 97.8 F Temperature Source Oral Pulse Rate 68 86 76 Respiratory Rate 18 16 26 H Blood Pressure 147/89 H 124/87 H Blood Pressure Mean 108 99 Pulse Ox 96 98 97 Oxygen Delivery Method Room Air Room Air Room Air 07/24/24 17:00 07/24/24 18:00 07/24/24 19:00 Temperature Temperature Source Pulse Rate 75 80 85 Respiratory Rate 13 19 H 18 Blood Pressure Blood Pressure Mean Pulse Ox Oxygen Delivery Method MDM MDM MDM Narrative Medical decision making narrative: 53-year-old female with past medical history of hypothyroidism and alcoholism presents for alcohol detox. Patient's last drink was prior to arrival. Patient had a fall outside prior to ED visit. She is intoxicated. No complaints from the fall. Differential diagnosis includes but is not limited to alcohol intoxication, electrolyte abnormality, JUAN DAVID, transaminitis. Given patient is currently intoxicated with alcohol cannot fully clear her for intracranial bleed or cervical fracture therefore CT head and neck ordered. NS bolus ordered. CBC without leukocytosis or anemia. INR within normal limits. BMP shows dehydration with hyponatremia and hypokalemia. No JUAN DAVID. P.o. and IV potassium ordered. Hepatic panel s (more content not included)... Normal [facility] Eosinophil percentageOrdered By: Alvino Mercado on 07-24-2024 Eosinophils/100 WBC (Bld) 1.2 % 0-5 [facility] Erythrocyte distribution wid th ratioOrdered By: Alvino Mercado on 07-24-2024 Erythrocyte distribution width (RBC) [Ratio] 18.0 % High 11.6-14.6 [facility] Erythrocyte distribution wid th standard deviationOrdered By: [facility] on 07-24-2024 Erythrocyte distribution width (RBC) [Entitic vol] 66.7 fL High 35.1-43.9 [facility] H AND P Exam - [facility] 07-24-2024 H&P Exam - Hospitalist [facility] Medical Records Department [address] [place] [address] H P Exam - Hospitalist 07/24/24 193 MR#: [id number] Acct: [id number] Name: ORA ADAMS Rep #: [id number] : 1970 53 From: Dung Gómez DO PCP: AUGUSTINA Funes Status:REG ER Location: ED HPI - General General Date of Service: 07/24/24 Chief Complaint: Not feeling well HPI Narrative ORA ADAMS, is a 53 F who presents to the hospital not feeling well. Patient had been sick since Wednesday of last week after being around family for [employer]. Was getting ready to come to the hospital where she was unable to clear the curb and fell backwards hitting her head. She did not lose consciousness. A rapid response team was called and the fact the patient hit her head, c- collar and a backboard was ordered and patient was brought to the emergency room. Her cervical spine and head CT were cleared and negative. Patient is also requesting treatment for withdrawal from alcohol. Patient drinks a small bottle of vodka daily. States that when she tries not drinking she feels poorly. Patient was also positive for COVID-19 which is likely why she has been sick since last week. Even though she now has COVID (which is the first time that she has knowingly had that) she is willing to stay here to get treatment for alcohol withdrawal. Patient was evaluated by myself during the rapid response team [facility] Medical History Alcohol abuse History of breast cancer HTN (hypertension) Hypothyroid Home Medications ???Medication ???Instructions ???Recorded ???Last Taken ???Type omeprazole 40 mg capsule,delayed 40 mg PO DAILY GERD 12/02/20 05/27/24 History release levothyroxine 150 mcg tablet 150 mcg PO DAILY thyroid 02/20/24 05/27/24 History lorazepam 0.5 mg tablet (Ativan) 0.5 mg PO DAILY PRN sleep 05/28/24 05/28/24 History ondansetron 4 mg disintegrating 4 mg PO Q6H PRN PRN Nausea #15 tabs 05/28/24 Unknown Rx tablet potassium chloride 20 mEq 20 meq PO BID #10 tabs 05/28/24 Unknown Rx tablet,extended release zolpidem 5 mg tablet 5 mg PO QHS PRN 05/28/24 Unknown History Allergy/AdvReac Type Severity Reaction Status Date / Time Penicillins Allergy Hives Verified 07/24/24 14:13 Sulfa (Sulfonamide Allergy Hives Verified 07/24/24 14:13 Antibiotics) vancomycin Allergy Hives Verified 07/24/24 14:13 Family History (Updated 07/24/24 @ 19:[address] Dung Gómez DO) Other Alcoholism Surgical History H/O mastectomy H/O: hysterectomy Social History Smoking Status: Former smoker ROS ROS Narrative Sore throat. Cough. Congested ears. Has cough to the point where she has vomited. All review of systems were negative except as mentioned above in the history of present illness and the other review of systems. Vital Signs Vital Signs Vital Signs: 07/24/24 14:07 07/24/24 15:06 07/24/24 16:02 Temperature 36.6 C Temperature Source Oral Pulse Rate 68 86 76 Respiratory Rate 18 16 26 H Blood Pressure 147/89 H 124/87 H Blood Pressure Mean 108 99 Pulse Ox 96 98 97 Oxygen Delivery Method Room Air Room Air Room Air 07/24/24 17:00 07/24/24 18:00 07/24/24 19:00 Temperature Temperature Source Pulse Rate 75 80 85 Respiratory Rate 13 19 H 18 Blood Pressure Blood Pressure Mean Pulse Ox Oxygen Delivery Method Weight Weight: 107 kg Body Mass Index (BMI) 41.8 Physical Exam Const alert and no apparent distress Constitutional Narrative: Hard of hearing. Afebrile. No respiratory distress. No conversational dyspnea. HEENT normocephalic and head/scalp atraumatic HEENT Narrative: No scalp lesions Resp normal respiratory effort, no retractions, no use of accessory muscles and clear to auscultation bilaterally Cardio regular rate, regular rhythm, S1 normal heart sound and S2 normal heart sound GI normal to inspection, nondistended, normoactive bowel sounds, soft to palpation, non-tender and non- distended Extremity normal to inspection and full ROM Neuro Sensorium / Orientation: awake and alert Results Lab / Micro Data 07/24/24 15:09 07/24/24 15:09 Labs: Laboratory Results - last 24 hr 07/24/24 15:09: WBC 5.1, RBC 4.15 L, Hgb 14.8, Hct 42.3, MCV 101.9 H, MCH 35.7 H, MCHC 35.0, RDW Std Deviation 66.7 H, RDW Coeff of [place] 18.0 H, Plt Count 272, MPV 9.6, Immature Gran % (Auto) 0.600, N eut % (Auto) 37.1 L, Lymph % (Auto) 45.0 H, [place] % (Auto) 13.7 H, Eos % (Auto) 1.2, Baso % (Auto) 2.4 H, Absolute Neuts (auto) 1.9 L, Absolute Lymphs (auto) 2.27, Nucleated RBC % 0.4, Platelet Estimate ADEQUATE, RBC Morphology N (more content not included)... Normal [facility] Hematocrit Auto (Bld) [Volum e fraction]Ordered By: Alvino Mercado on 07-24-2024 Hematocrit (Bld) [Volume fraction] 42.3 % 37-47 [facility] Hemoglobin measurementOrdere d By: Alvino Mercado on 07-24-2024 Hemoglobin (Bld) [Mass/Vol] 14.8 g/dL 12.0-15.0 [facility] Immature granulocytes/100 WB C Auto (Bld)Ordered By: Alvino Mercado on 07-24-2024 Immature granulocytes/100 WBC (Bld) 0.600 % 0.0-0.9 [facility] Comment on above: IG% - Immature Granu locytes (promyelocytes, myelocytes and metamyelocytes) > 1% indicates that a LEFT SHIFT is Present. Influenza virus A and B and SARS-CoV-2 (COVID-19) and Respiratory syncytial virus RNAOrdered By: Alvino Mercado on 07-24-2024 SARS-CoV-2 (COVID-19) RNA CARLEE+probe Ql (Unsp spec) SARS-CoV-2 (COVID 19) Abnormal [facility] normalized rat io (INR) calculationOrdered By: [facility] on 07-24-2024 INR Coag (Bld) [Relative time] 1.2 {INR} [facility] - Chemistry and C hemistry - challengeOrdered By: [facility] on 07-24-2024 AST [Catalytic activity/Vol] 236 U/L High 15-37 [facility] - Hematology and Cell countsOrdered By: [facility] on 07-24-2024 Anisocytosis Ql (Bld) 1+ [facility] Liver Profileon 07-24-2024 Albumin [Mass/Vol] 2.8 g/dL Low 3.2-5.0 [facility] Comment on above: Performed By: #### L 500.3400, L501.9100, L500.2500, L501.2450, L501.5200, L100.0100, L501.4020 #### [facility] [address] [place], [address] ALK P 193 U/L High 45-117 [facility] Comment on above: Performed By: #### L 500.3400, L501.9100, L500.2500, L501.2450, L501.5200, L100.0100, L501.4020 #### [facility] [address] [place], [address] ALT [Catalytic activity/Vol] 62 U/L High 13-56 [facility] Comment on above: Performed By: #### L 500.3400, L501.9100, L500.2500, L501.2450, L501.5200, L100.0100, L501.4020 #### [facility] [address] [place], [address] AST [Catalytic activity/Vol] 236 U/L High 15-37 [facility] Comment on above: Performed By: #### L 500.3400, L501.9100, L500.2500, L501.2450, L501.5200, L100.0100, L501.4020 #### [facility] [address] [place], [address] Bilirubin [Mass/Vol] 2.00 mg/dL High 0.20-1.00 [facility] Comment on above: Result Comment: For patients on eltrombopag therapy, use of Dimension [place] TBIL is not recommended. Performed By: #### L 500.3400, L501.9100, L500.2500, L501.2450, L501.5200, L100.0100, L501.4020 #### [facility] [address] [place], [address] Bilirubin.direct [Mass/Vol] 0.74 mg/dL High 0.00-0.30 [facility] Comment on above: Performed By: #### L 500.3400, L501.9100, L500.2500, L501.2450, L501.5200, L100.0100, L501.4020 #### [facility] [address] [place], [address] Globulin (S) [Mass/Vol] 3.7 g/dL Normal 2.2-4.2 [facility] Comment on above: Performed By: #### L 500.3400, L501.9100, L500.2500, L501.2450, L501.5200, L100.0100, L501.4020 #### [facility] [address] [place], [address] T PROT 6.5 g/dL Normal 6.4-8.2 [facility] Comment on above: Performed By: #### L 500.3400, L501.9100, L500.2500, L501.2450, L501.5200, L100.0100, L501.4020 #### [facility] [address] [place], [address] Lymphocytes Auto (Unsp spec) [#/Vol]Ordered By: Alvino Mercado on 07-24-2024 Lymphocytes (Bld) [#/Vol] 2.27 10*3/uL 0.83-4.51 [facility] Lymphocytes/100 WBC Auto (Un sp spec)Ordered By: Alvino Mercado on 07-24-2024 Lymphocytes/100 WBC (Bld) 45.0 % High 19-41 [facility] M100.678on 07-24-2024 M100.678 Pending SARS-CoV-2 (COVID 19) A Positive A INFLUENZA A Negative INFLUENZA B Negative RSV PCR Negative SARS-CoV-2 (COVID 19) Normal [facility] Comment on above: Performed By: #### L 500.3400, L501.9100, L500.2500, L501.2450, L501.5200, L100.0100, L501.4020 #### [facility] [address] [place], [address] MCV (mean corpuscular volume ) determinationOrdered By: Alvino Mercado on 07-24-2024 MCV (RBC) [Entitic vol] 101.9 fL High 81-99 [facility] Macrocytes Ql (Bld)Ordered B y: Alvino Mercado on 07-24-2024 Macrocytosis 1+ [facility] Mean corpuscular hemoglobin (MCH) determinationOrdered By: Alvino Mercado on 07-24-2024 MCH (RBC) [Entitic mass] 35.7 pg High 27.0-32.0 [facility] Mean corpuscular hemoglobin concentration (MCHC) determinationOrdered By: Alvino Mercado on 07-24-2024 MCHC (RBC) [Mass/Vol] 35.0 g/dL 32-36 [facility] Mean platelet volume determi nationOrdered By: Alvino Mercado on 07-24-2024 Platelet mean volume (Bld) [Entitic vol] 9.6 fL 6.2-12.0 [facility] Methadone, urineOrdered By: Alvino Mercado on 07-24-2024 Urine Methadone Screen Negative < 300 ng/mL [facility] Monocyte percentageOrdered B y: Alvino Mercado on 07-24-2024 Monocytes/100 WBC (Bld) 13.7 % High 0-10 [facility] Neutrophil percentageOrdered By: Alvino Mercado on 07-24-2024 Neutrophils/100 WBC (Bld) 37.1 % Low 47-70 [facility] No Panel InformationOrdered By: Alvino Mercado on 07-24-2024 Urine Drug Screen Comment [facility] Comment on above: CONFIRMATORY TESTING FOR ALL POSITIVE URINE DRUG SCREENRESULTS WILL ONLY BE SENT OUT UPON PHYSICIAN ORDER. VISTA Urine Drug Screen methods provide only preliminaryanalytical test results. A more specific alternate chemicalmethod must be used in order to obtain a confirmedanalytical result. Gas chromatography/mass spectrometery(GC/MS) is the preferred confirmatory method. Clinicalconsideration and professional judgement should be appliedto any drug of abuse test result, particularly whenpreliminary positive results are used. URINE TCA TESTING MUST BE ORDERED SEPARATELY. USE TESTMNEMONIC: [facility] Nucleated red blood cell per centageOrdered By: Alvino Mercado on 07-24-2024 Nucleated RBC/100 WBC (Bld) [Ratio] 0.4 % 0-5 [facility] Partial Thromboplast Timeon 07-24-2024 aPTT Coag (Bld) [Time] 27.7 s Normal 24.1-36.2 [facility] Comment on above: Performed By: #### L 300.3900, L300.4310 #### [facility] [address] [place], [address] Platelet countOrdered By: Paco Mercado on 07-24-2024 Platelets (Bld) [#/Vol] 272 10*3/uL 150-450 [facility] Platelets LM Ql (Bld)Ordered By: Alvino Mercado on 07-24-2024 Platelet Estimate ADEQUATE ADEQ [facility] Prothrombin Time w/INRon INR Coag (PPP) [Relative time] 1.2 {INR} Normal [facility] Comment on above: Performed By: #### L 300.3900, L300.4310 #### [facility] [address] [place], [address] PT Coag (PPP) [Time] 15.2 s High 11.7-14.9 [facility] Comment on above: Performed By: #### L 300.3900, L300.4310 #### [facility] [address] [place], [address] Prothrombin timeOrdered By: Alvino Mercado on 07-24-2024 PT Coag (PPP) [Time] 15.2 s High 11.7-14.9 [facility] Quantitative urine opiates m easurementOrdered By: Alvino Mercado on 07-24-2024 Opiates Ql (U) Negative < 300 ng/mL [facility] RBC Auto (Bld) [#/Vol]Ordere d By: Alvino Mercado on 07-24-2024 RBC (Bld) [#/Vol] 4.15 10*6/uL Low 4.2-5.4 [facility] RBC morphology finding Nom ( Bld)Ordered By: Alvino Mercado on 07-24-2024 Red Blood Cell Morphology N CHROM NORMAL NORM C&C [facility] Serum ethanol measurementOrd ered By: Alvino Mercado on 07-24-2024 Ethyl Alcohol Level 364.0 mg/dL High [facility] Comment on above: The serum:whole bloo d ethanol ratio is approximately 1.14and varies slightly with hematocrit. Medical Alcohol reference interval and critical value innon-tolerant individuals; 50 - 100 Impairment 100 Intoxication 100 - 250 Severe Poisoning 250 - 400 Deep/possible fatal coma Serum globulin measurementOr dered By: Alvino Mercado on 07-24-2024 Globulin (S) [Mass/Vol] 3.7 g/dL 2.2-4.2 [facility] Serum or plasma alanine stevenson otransferase (ALT) measurementOrdered By: Alvino Mercado on 07-24-2024 ALT [Catalytic activity/Vol] 62 U/L High 13-56 [facility] Serum or plasma albumin tammie urement (mass/volume)Ordered By: Alvino Gamble on 07-24-2024 Albumin [Mass/Vol] 2.8 g/dL Low 3.2-5.0 [facility] Serum or plasma alkaline milad sphatase measurementOrdered By: Alvino Mercado on 07-24-2024 ALP [Catalytic activity/Vol] 193 U/L High 45-117 [facility] Spine Cervical without Contr ason 07-24-2024 Spine Cervical without Contras [facility] Imaging Services [address] [place], [place] [address] Spine Cervical without Contras MR#: [id number] Acct: [id number] Name: ORA ADAMS Fanny Rep #: [id number] : 1970 F 53 From: Raymond koch MD PCP: AUGUSTINA Funes Status: REG ER Study: Spine Cervical without Contras Date of Exam: Exam# [id number] Ordering Dr: Alvino Mercado DO [id number] STUDY: CT CERVICAL SPINE WITHOUT CONTRAST REASON FOR EXAM: Female, 53 years old. Trauma RADIATION DOSAGE (If Supplied By Facility): CTDIvol = ( 25.52 ) mGy, DLP = ( 479.53 ) mGycm TECHNIQUE: High resolution transaxial imaging was performed without contrast material. Sagittal and coronal images were reconstructed. Individualized dose optimization techniques were used for this CT. COMPARISON: None FINDINGS: No definite acute fracture/dislocation. The cervical junction is intact. C1-C2 articulation is intact. Mild reversal of curvature. There is normal alignment. Facet joints are intact at all levels bilaterally. No jumped facets. Multilevel degenerative disc disease seen. Multilevel loss of disc height. Multilevel posterior marginal osteophytes and disc bulges. Multilevel neural foraminal narrowing. Multilevel narrowing of the spinal canal. Visualized paraspinal soft tissues and structures are unremarkable. CT/Spine Cervical without Contras IMPRESSION: There is no definite acute fracture/dislocation. Degenerative changes. Electronically Signed: Raymond Leon MD at 18:49 EST , CC: AUGUSTINA Woodson; Dr. Alvino Mercado DO Civil Process Server: Signed Normal [facility] Total proteinOrdered By: Kayode Mercado on 07-24-2024 Protein [Mass/Vol] 6.5 g/dL 6.4-8.2 [facility] Urine Drug Screen (VISTA)on 07-24-2024 AMPHETAMINES Negative Normal <1000 ng/mL [facility] Comment on above: Performed By: #### L 500.3400, L501.9100, L500.2500, L501.2450, L501.5200, L100.0100, L501.4020 #### [facility] [address] [place], [place], [id number] BARBITIURATES Negative Normal < 200 ng/mL [facility] Comment on above: Performed By: #### L 500.3400, L501.9100, L500.2500, L501.2450, L501.5200, L100.0100, L501.4020 #### [facility] [address] [place] [address] BENZODIAZIPINE Negative Normal < 200 ng/mL [facility] Comment on above: Performed By: #### L 500.3400, L501.9100, L500.2500, L501.2450, L501.5200, L100.0100, L501.4020 #### [facility] [address] [place] [address] COCAINE Negative Normal < 300 ng/mL [facility] Comment on above: Performed By: #### L 500.3400, L501.9100, L500.2500, L501.2450, L501.5200, L100.0100, L501.4020 #### [facility] [address] [place] [address] ECSTACY Negative Normal < 500 ng/mL [facility] Comment on above: Performed By: #### L 500.3400, L501.9100, L500.2500, L501.2450, L501.5200, L100.0100, L501.4020 #### [facility] [address] [place] [address] METHADONE Negative Normal < 300 ng/mL [facility] Comment on above: Performed By: #### L 500.3400, L501.9100, L500.2500, L501.2450, L501.5200, L100.0100, L501.4020 #### [facility] [address] [place] [address] OPIATES Negative Normal < 300 ng/mL [facility] Comment on above: Performed By: #### L 500.3400, L501.9100, L500.2500, L501.2450, L501.5200, L100.0100, L501.4020 #### [facility] [address] [place], [place], [address] PCP Negative Normal < 25 ng/mL [facility] Comment on above: Performed By: #### L 500.3400, L501.9100, L500.2500, L501.2450, L501.5200, L100.0100, L501.4020 #### [facility] [address] [place], [place], [address] THC Negative Normal < 50 ng/mL [facility] Comment on above: Performed By: #### L 500.3400, L501.9100, L500.2500, L501.2450, L501.5200, L100.0100, L501.4020 #### [facility] [address] [place], [address] VISTA UDS PH 5 Normal [facility] Comment on above: Performed By: #### L 500.3400, L501.9100, L500.2500, L501.2450, L501.5200, L100.0100, L501.4020 #### [facility] [address] [place], [address] Urine amphetamine measuremen tOrdered By: Alvino Mercado on 07-24-2024 Amphetamines Ql (U) Negative <1000 ng/mL [facility] Urine barbiturates measureme ntOrdered By: Alvino Mercado on 07-24-2024 Urine Barbiturates Screen Negative < 200 ng/mL [facility] Urine benzodiazepine levelOr dered By: Alvino Mercado on 07-24-2024 Benzodiazepines Ql (U) Negative < 200 ng/mL [facility] Urine cocaine levelOrdered B y: Alvino Mercado on 07-24-2024 Cocaine Ql (U) Negative < 300 ng/mL [facility] Urine ukvrp-6-bwdnkxohkoylgl abinol (THC) measurementOrdered By: Alvino Gamble on 07-24-2024 Cannabinoids Screen Ql (U) Negative < 50 ng/mL [facility] Urine methylenedioxymethamph etamine (MDMA) measurementOrdered By: Alvino Mercado on 07-24-2024 MDMA (Ecstasy) Screen Negative < 500 ng/mL [facility] Urine phencyclidine (PCP) de tectionOrdered By: Alvino Mercado on 07-24-2024 Phencyclidine Ql (U) Negative < 25 ng/mL [facility] White blood cell (WBC) count Ordered By: Alvino Mercado on 07-24-2024 WBC (Bld) [#/Vol] 5.1 10*3/uL 4.4-11.0 [facility] aPTT Coag (PPP) [Time]Ordere d By: Alvino Mercado on 07-24-2024 aPTT Coag (Bld) [Time] 27.7 s 24.1-36.2 [facility] CNOVon 06-02-2024 CNOV Office Visit (INTMWS ) ----- ANGIEORA ([id number]) 1970 F Date Time Provider Department 06/02/24 9:00 AM ALIRIO WOODSON INTMWS During your visit today, we recorded the following information about you: Pulse Blood pressure Weight 88/minute 134/90 89.3 kg Alirio Woodson APRN.CNP 06/02/2024 10:09 AM Signed SUBJECTIVE Ora Adams is a 53 year old female here today for a check up on her medical problems. Chief Complaint Patient presents with: Recheck HPI Ora Adams is a 53 year old female. She is an established patient. Here today for follow up on acute pancreatitis. Seen earlier this week and was feeling pretty miserable. States today that able to eat, eating slowly now, no vomiting. Less nausea. Less abdominal pain. Cutting back on pain medication. Having small bowel movements, passing gas. Repeat labs show improvement of lipase back to normal. CBC shows WBC elevation. Blood pressure is elevated some today, darling bp readings better. Advised monitoring close at home/work. Her medications were reviewed today and her list is now up to date. Medications Current Outpatient Medications Medication Sig promethazine (PHENERGAN) 25 mg tablet Take 1 tablet by mouth every 6 hours as needed for nausea/vomiting. oxyCODONE IR (ROXICODONE) 5 mg immediate release tablet Take 1 tablet by mouth every 4 hours as needed for pain for up to 5 days. Patient should start on May 30, 2024. levothyroxine (SYNTHROID) 150 mcg tablet Take 1 tablet by mouth once daily. Take on empty stomach. For thyroid zolpidem (AMBIEN) 5 mg tablet Take 1 tablet by mouth at bedtime as needed for up to 90 days. omeprazole (PRILOSEC) 40 mg capsule Take 1 capsule by mouth once daily. nystatin (MYCOSTATIN) cream Apply to affected area twice daily. cefdinir (OMNICEF) 300 mg capsule Take 1 capsule by mouth two times a day for 10 days. hydroCHLOROthiazide 12.5 mg capsule Take 1 capsule by mouth once daily. (Patient not taking: Reported on 05/29/2024) potassium chloride SR (MICRO-K) 10 mEq CR capsule Take 2 capsules by mouth once daily. (Patient not taking: Reported on 03/08/2024) nabumetone (RELAFEN) 500 mg tablet Take 500 mg by mouth twice daily. (Patient not taking: Reported on 05/29/2024) No current facility-administered medications for this visit. 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 Cardiovascular: Negative. Gastrointestinal: Positive for abdominal pain. Negative for constipation, diarrhea, nausea and vomiting. OBJECTIVE BP 138/88[first darling bp reading[ Pulse 91 Wt 196 lb 13.9 oz (89.3kg) SpO2 96% Physical Exam Vitals and nursing note reviewed. Constitutional: General: She is awake. She is not in acute distress. Appearance: Normal appearance. She is well-developed and well-groomed. She is not ill-appearing, toxic-appearing or diaphoretic. HENT: Head: Normocephalic. Right Ear: External ear normal. Left Ear: External ear normal. Nose: Nose normal. Eyes: General: Vision grossly intact. Conjunctiva/sclera: Conjunctivae normal. Pupils: Pupils are equal, round, and reactive to light. Neck: Vascular: No JVD. Trachea: Trachea normal. Cardiovascular: Rate and Rhythm: Normal rate and regular rhythm. Pulses: Normal pulses. Heart sounds: Normal heart sounds. No murmur heard. Pulmonary: Effort: Pulmonary effort is normal. No accessory muscle usage, prolonged expiration or respiratory distress. Breath sounds: Normal breath sounds. Musculoskeletal: Cervical back: Neck supple. Skin: General: Skin is warm and dry. Capillary Refill: Capillary refill takes less than 2 seconds. Neurological: General: No focal deficit present. Mental Status: She is alert and oriented to person, place, and time. Mental status is at baseline. Psychiatric: Attention and Perception: Attention and perception normal. Mood and Affect: Mood and affect normal. Speech: Speech normal. Behavior: Behavior normal. Behavior is cooperative. Thought Content: Thought content normal. Cognition and Memory: Cognition and memory normal. Judgment: Judgment (more content not included)... Normal [facility] Amylase SerPl-cCncon 024 Amylase [Catalytic activity/Vol] 24 U/L Low 30-104 [facility] Comment on above: Order Comment: Speci men Type: BLOOD SPECIMENOrdering Facility: [facility] Address: [address] [place] [address] Performed By: #### 3 040-3, 1798-8, 19438-5 ####[facility] LABCLIA [id number] [place] [address] [place] CBC W Auto Differential pane l (Bld)on 05-31-2024 Anisocytosis Ql (Bld) Present Normal [facility] Comment on above: Order Comment: Speci men Type: BLOOD SPECIMENOrdering Facility: [facility] Address: [address] [place] [address] Performed By: #### 5 7021-8 ####[facility] LABIA [id number] [place] [address] [place] Basophils (Bld) [#/Vol] 0.06 10*3/uL Normal <0.11 [facility] Comment on above: Order Comment: Speci men Type: BLOOD SPECIMENOrdering Facility: [facility] Address: [address] [place] [address] Performed By: #### 5 7021-8 ####[facility] LABIA [id number] [place] [address] [place] Basophils/100 WBC (Bld) 0.3 % Normal [facility] Comment on above: Order Comment: Speci men Type: BLOOD SPECIMENOrdering Facility: [facility] Address: [address] [place] [address] Performed By: #### 5 7021-8 ####[facility] LABCLIA [id number] [place] [address] [place] Differential cell count method Nom (Bld) Auto Normal [facility] Comment on above: Order Comment: Speci men Type: BLOOD SPECIMENOrdering Facility: [facility] Address: [address] [place] [address] Performed By: #### 5 7021-8 ####[facility] LABCLIA [id number] [place] [address] [place] Eosinophils (Bld) [#/Vol] 0.18 10*3/uL Normal <0.46 [facility] Comment on above: Order Comment: Speci men Type: BLOOD SPECIMENOrdering Facility: [facility] Address: [address] [place] [address] Performed By: #### 5 7021-8 ####[facility] LABCLIA [id number] [place] [address] [place] Eosinophils/100 WBC (Bld) 1.0 % Normal [facility] Comment on above: Order Comment: Speci men Type: BLOOD SPECIMENOrdering Facility: [facility] Address: [address] [place] [address] Performed By: #### 5 7021-8 ####[facility] LABCLIA [id number] [place] [address] [place] Erythrocyte distribution width (RBC) [Ratio] 20.7 % High 11.5-15.0 [facility] Comment on above: Order Comment: Speci men Type: BLOOD SPECIMENOrdering Facility: [facility] Address: [address] [place] [address] Performed By: #### 5 7021-8 ####[facility] LABCLIA [id number] [place] [address] [place] Hematocrit (Bld) [Volume fraction] 34.1 % Low 36.0-46.0 [facility] Comment on above: Order Comment: Speci men Type: BLOOD SPECIMENOrdering Facility: [facility] Address: [address] [place] [address] Performed By: #### 5 7021-8 ####[facility] LABCLIA [id number] [place] [address] [place] Hemoglobin (Bld) [Mass/Vol] 11.4 g/dL Low 11.5-15.5 [facility] Comment on above: Order Comment: Speci men Type: BLOOD SPECIMENOrdering Facility: [facility] Address: [address] [place] [address] Performed By: #### 5 7021-8 ####[facility] LABCLIA [id number] [place] [address] [place] Immature granulocytes (Bld) [#/Vol] 0.22 10*3/uL High <0.10 [facility] Comment on above: Order Comment: Speci men Type: BLOOD SPECIMENOrdering Facility: [facility] Address: [address] [place] [address] Performed By: #### 5 7021-8 ####[facility] LABCLIA [id number] [place] [address] [place] Immature granulocytes/100 WBC (Bld) 1.2 % Normal [facility] Comment on above: Order Comment: Speci men Type: BLOOD SPECIMENOrdering Facility: [facility] Address: [address] [place] [address] Performed By: #### 5 7021-8 ####[facility] LABCLIA [id number] [place] [address] [place] Lymphocytes (Bld) [#/Vol] 1.84 10*3/uL Normal 1.00-4.00 [facility] Comment on above: Order Comment: Speci men Type: BLOOD SPECIMENOrdering Facility: [facility] Address: [address] [place] [address] Performed By: #### 5 7021-8 ####[facility] LABCLIA [id number] [place] [address] [place] Lymphocytes/100 WBC (Bld) 9.9 % Normal [facility] Comment on above: Order Comment: Speci men Type: BLOOD SPECIMENOrdering Facility: [facility] Address: [address] [place] [address] Performed By: #### 5 7021-8 ####[facility] LABCLIA [id number] [place] [address] [place] MCH (RBC) [Entitic mass] 37.4 pg High 26.0-34.0 [facility] Comment on above: Order Comment: Speci men Type: BLOOD SPECIMENOrdering Facility: [facility] Address: [address] [place] [address] Performed By: #### 5 7021-8 ####[facility] LABIA [id number] [place] [address] [place] MCHC (RBC) [Mass/Vol] 33.4 g/dL Normal 30.5-36.[address] [facility] Comment on above: Order Comment: Speci men Type: BLOOD SPECIMENOrdering Facility: [facility] Address: [address] [place] [address] Performed By: #### 5 7021-8 ####[facility] LABIA [id number] [place] [address] [place] MCV (RBC) [Entitic vol] 111.8 fL High 80.0-100.0 C [facility] Comment on above: Order Comment: Speci men Type: BLOOD SPECIMENOrdering Facility: [facility] Address: [address] [place] [address] Performed By: #### 5 7021-8 ####[facility] LABIA [id number] [place] [address] [place] Monocytes (Bld) [#/Vol] 0.79 10*3/uL Normal <0.87 [facility] Comment on above: Order Comment: Speci men Type: BLOOD SPECIMENOrdering Facility: [facility] Address: [address] [place] [address] Performed By: #### 5 7021-8 ####[facility] LABIA [id number] [place] [address] [place] Monocytes/100 WBC (Bld) 4.2 % Normal C [facility] Comment on above: Order Comment: Speci men Type: BLOOD SPECIMENOrdering Facility: [facility] Address: [address] [place] [address] Performed By: #### 5 7021-8 ####[facility] LABCLIA [id number] [place] [address] [place] Neutrophils (Bld) [#/Vol] 15.56 10*3/uL High 1.45-7.50 [facility] Comment on above: Order Comment: Speci men Type: BLOOD SPECIMENOrdering Facility: [facility] Address: [address] [place] [address] Performed By: #### 5 7021-8 ####[facility] LABCLIA [id number] [place] [address] [place] Neutrophils/100 WBC (Bld) 83.4 % Normal [facility] Comment on above: Order Comment: Speci men Type: BLOOD SPECIMENOrdering Facility: [facility] Address: [address] [place] [address] Performed By: #### 5 7021-8 ####[facility] LABCLIA [id number] [place] [address] [place] Nucleated RBC (Bld) [#/Vol] 0.02 10*3/uL High <0.01 [facility] Comment on above: Order Comment: Speci men Type: BLOOD SPECIMENOrdering Facility: [facility] Address: [address] [place] [address] Performed By: #### 5 7021-8 ####[facility] LABCLIA [id number] [place] [address] [place] Nucleated RBC/100 WBC (Bld) [Ratio] 0.1 /100 WBC Normal [facility] Comment on above: Order Comment: Speci men Type: BLOOD SPECIMENOrdering Facility: [facility] Address: [address] [place] [address] Performed By: #### 5 7021-8 ####[facility] LABCLIA [id number] [place] [address] [place] Ovalocytes LM Ql (Bld) Few Normal Cl [facility] Comment on above: Order Comment: Speci men Type: BLOOD SPECIMENOrdering Facility: [facility] Address: [address] [place] [address] Performed By: #### 5 7021-8 ####[facility] LABIA [id number] [place] [address] [place] Platelet mean volume (Bld) [Entitic vol] 9.6 fL Normal 9.0-12.7 [facility] Comment on above: Order Comment: Speci men Type: BLOOD SPECIMENOrdering Facility: [facility] Address: [address] [place] [address] Performed By: #### 5 7021-8 ####[facility] LABIA [id number] [place] [address] [place] Platelets (Bld) [#/Vol] 327 10*3/uL Normal 150-400 [facility] Comment on above: Order Comment: Speci men Type: BLOOD SPECIMENOrdering Facility: [facility] Address: [address] [place] [address] Performed By: #### 5 7021-8 ####[facility] LABIA [id number] [place] [address] [place] Platelets Estimate (Bld) [#/Vol] Adequate Normal [facility] Comment on above: Order Comment: Speci men Type: BLOOD SPECIMENOrdering Facility: [facility] Address: [address] [place] [address] Performed By: #### 5 7021-8 ####[facility] LABCLIA [id number] [place] [address] [place] Polychromasia LM Ql (Bld) Slight Normal [facility] Comment on above: Order Comment: Speci men Type: BLOOD SPECIMENOrdering Facility: [facility] Address: [address] [place] [address] Performed By: #### 5 7021-8 ####[facility] LABCLIA [id number] [address] [address] [place] RBC (Bld) [#/Vol] 3.05 10*6/uL Low 3.90-5.20 [facility] Comment on above: Order Comment: Speci men Type: BLOOD SPECIMENOrdering Facility: [facility] Address: [address] [place] [address] Performed By: #### 5 7021-8 ####[facility] LABIA [id number] [place] [address] [place] RED CELL MORPH Reviewed: see result s of individual morphologies Normal [facility] Comment on above: Order Comment: Speci men Type: BLOOD SPECIMENOrdering Facility: [facility] Address: [address] [place] [address] Performed By: #### 5 7021-8 ####[facility] LABIA [id number] [place] [address] [place] WBC (Bld) [#/Vol] 18.65 10*3/uL High 3.70-11.00 [facility] Comment on above: Order Comment: Speci men Type: BLOOD SPECIMENOrdering Facility: [facility] Address: [address] [place] [address] Performed By: #### 5 7021-8 ####[facility] LABIA [id number] [place] [address] [place] Comprehensive metabolic 2000 panelon 05-31-2024 Albumin [Mass/Vol] 3.0 g/dL Low 3.9-4.9 [facility] Comment on above: Order Comment: Speci men Type: BLOOD SPECIMENOrdering Facility: [facility] Address: [address] [place] [address] Performed By: #### 3 040-3, 1798-02, ####[facility] LABCLIA [id number] [address] [address] [place] ALP [Catalytic activity/Vol] 106 U/L Normal 34-123 [facility] Comment on above: Order Comment: Speci men Type: BLOOD SPECIMENOrdering Facility: [facility] Address: [address] [place] [address] Performed By: #### 3 040-3, 1798-02, ####[facility] LABCLIA [id number] [place] [address] [place] ALT [Catalytic activity/Vol] 19 U/L Normal 7-38 [facility] Comment on above: Order Comment: Speci men Type: BLOOD SPECIMENOrdering Facility: [facility] Address: [address] [place] [address] Performed By: #### 3 040-3, 1798-02, ####[facility] LABCLIA [id number] [place] [address] [place] Anion gap [Moles/Vol] 12 mmol/L Normal 8-[address] [facility] Comment on above: Order Comment: Speci men Type: BLOOD SPECIMENOrdering Facility: [facility] Address: [address] [place] [address] Performed By: #### 3 040-3, 1798-02, ####[facility] LABCLIA [id number] [address] [address] [place] AST [Catalytic activity/Vol] 25 U/L Normal 13-35 [facility] Comment on above: Order Comment: Speci men Type: BLOOD SPECIMENOrdering Facility: [facility] Address: [address] [place], [place] [address] Performed By: #### 3 040-3, 1798-02, ####[facility] LABCLIA [id number] [place] [address] [place] Bilirubin [Mass/Vol] 3.1 mg/dL High 0.2-1.3 [facility] Comment on above: Order Comment: Speci men Type: BLOOD SPECIMENOrdering Facility: [facility] Address: [address] [place] [address] Performed By: #### 3 040-3, 1798-02, ####[facility] LABCLIA [id number] [place] [address] [place] Calcium [Mass/Vol] 8.7 mg/dL Normal 8.5-10.2 [facility] Comment on above: Order Comment: Speci men Type: BLOOD SPECIMENOrdering Facility: [facility] Address: [address] [place] [address] Performed By: #### 3 040-3, 1798-02, ####[facility] LABCLIA [id number] [place] [address] [place] Chloride [Moles/Vol] 88 mmol/L Low 98-107 [facility] Comment on above: Order Comment: Speci men Type: BLOOD SPECIMENOrdering Facility: [facility] Address: [address] [place] [address] Performed By: #### 3 040-3, 1798-02, ####[facility] LABCLIA [id number] [place] [address] [place] CO2 [Moles/Vol] 26 mmol/L Normal 22-30 [facility] Comment on above: Order Comment: Speci men Type: BLOOD SPECIMENOrdering Facility: [facility] Address: [address] [place] [address] Performed By: #### 3 040-3, 1798-02, ####[facility] LABCLIA [id number] [place] [id number] [place] Creatinine [Mass/Vol] 0.67 mg/dL Normal 0.58-0.[address] [facility] Comment on above: Order Comment: Ky badillo Type: BLOOD SPECIMENOrdering Facility: [facility] Address: [address] [place] [address] Performed By: #### 3 040-3, 8, 04873-1 ####[facility] LABIA [id number] [place] [address] [place] Creatinine and Glomerular filtration rate.predicted panel (S/P/Bld) 103 mL/min/1.73m??? Normal >=60 [facility] Comment on above: Order Comment: Ky badillo Type: BLOOD SPECIMENOrdering Facility: [facility] Address: [address] [place] [address] Result Comment: Ghada mated Glomerular Filtration Rate (eGFR) is calculated using the 2020 CKD-EPI creatinine equation. This equation utilizes serum creatinine, sex, and age as parameters. The creatinine assay has traceable calibration to isotope dilution-mass spectrometry. Refer to KDIGO guidelines for clinical interpretation. In patients with unstable renal function, e.g. those with acute kidney injury, the eGFR may not accurately reflect actual GFR. Performed By: #### 3 040-3, 1798-02, ####[facility] LABIA [id number] [place] [address] [place] Glucose [Mass/Vol] 67 mg/dL Low 74-99 [facility] Comment on above: Order Comment: Ky badillo Type: BLOOD SPECIMENOrdering Facility: [facility] Address: [address] [place] [address] Result Comment: The [place] Diabetes Association (ADA) provides guidance for cutoff values for fasting glucose and random glucose. The ADA defines fasting as no caloric intake for at least 8 hours. Fasting plasma glucose results between 100 to 125 mg/dL indicate increased risk for diabetes (prediabetes). Fasting plasma glucose results greater than or equal to 126 mg/dL meet the criteria for diagnosis of diabetes. In the absence of unequivocal hyperglycemia, results should be confirmed by repeat testing. In a patient with classic symptoms of hyperglycemia or hyperglycemic crisis, random plasma glucose results greater than or equal to 200 mg/dL meet the criteria for diagnosis of diabetes. Reference: Standards of Medical Care in Diabetes 2016, [place] Diabetes Association. Diabetes Care. 2016.39(Suppl 1). Performed By: #### 3 040-3, 1798-02, ####[facility] LABCLIA [id number] [place] [id number] [place] Potassium [Moles/Vol] 3.7 mmol/L Normal 3.7-5.[address] [facility] Comment on above: Order Comment: Speci men Type: BLOOD SPECIMENOrdering Facility: [facility] Address: [address] [place] [address] Performed By: #### 3 040-3, 1798-02, ####[facility] LABCLIA [id number] [place] [address] [place] Protein [Mass/Vol] 6.1 g/dL Low 6.3-8.0 [facility] Comment on above: Order Comment: Speci men Type: BLOOD SPECIMENOrdering Facility: [facility] Address: [address] [place] [address] Performed By: #### 3 040-3, 1798-02, ####[facility] LABCLIA [id number] [place] [address] [place] Sodium [Moles/Vol] 126 mmol/L Low 136-144 [facility] Comment on above: Order Comment: Speci men Type: BLOOD SPECIMENOrdering Facility: [facility] Address: [address] [place] [address] Performed By: #### 3 040-3, 1798-02, ####[facility] LABCLIA [id number] [address] [address] [place] Urea nitrogen [Mass/Vol] 7 mg/dL Normal 7-21 [facility] Comment on above: Order Comment: Speci men Type: BLOOD SPECIMENOrdering Facility: [facility] Address: [address] [place] [address] Performed By: #### 3 040-3, 8, ####[facility] LABIA [id number] [place] [address] [place] Lipase SerPl-cCncon 05-31-20 24 Lipase [Catalytic activity/Vol] 39 U/L Normal 16-61 [facility] Comment on above: Order Comment: Speci men Type: BLOOD SPECIMENOrdering Facility: [facility] Address: [address] [place] [address] Performed By: #### 3 040-3, 8, ####[facility] LABIA [id number] [address] [place] CNOVon 05-29-2024 CNOV Office Visit (INTMWS ) ----- ORA ADAMS ([id number]) 1970 F Date Time Provider Department 05/29/24 1:40 PM ALIRIO WOODSON INTMWS During your visit today, we recorded the following information about you: Pulse Blood pressure Weight 115/minute 136/98 89.9 kg Alirio Woodson APRN.ELECTRICAL INTEGRATOR 05/29/2024 3:08 PM Signed SUBJECTIVE Ora Adams is a 53 year old female here today for an Er follow up. Chief Complaint Patient presents with: ER F/U: [facility] 05/28/24 for pancreatitis HPI Ora Adams is a 53 year old female. She is an established patient who presents today for an ER follow up. Seen in ER at [facility] yesterday 05/28 and diagnosed with acute pancreatitis. Ct showed findings consistent with that diagnosis. Had started with some nausea and not feeling great a few days prior. Not feeling great today. Having some abdominal pain today. Not much nausea or vomiting. Trying to stick with clear liquids for bowel rest. No diarrhea issues. Had a few glasses of wine so not sure if that triggered this but this was not in excess and she typically has a few glasses of wine per week. Pain medication is helping to control her pain but pain is still very severe. In ER lipase was 601. First episode ever that she knows of. Her medications were reviewed today and her list is now up to date. Medications Current Outpatient Medications Medication Sig levothyroxine (SYNTHROID) 150 mcg tablet Take 1 tablet by mouth once daily. Take on empty stomach. For thyroid zolpidem (AMBIEN) 5 mg tablet Take 1 tablet by mouth at bedtime as needed for up to 90 days. omeprazole (PRILOSEC) 40 mg capsule Take 1 capsule by mouth once daily. nystatin (MYCOSTATIN) cream Apply to affected area twice daily. promethazine (PHENERGAN) 25 mg tablet Take 1 tablet by mouth every 6 hours as needed for nausea/vomiting. [START ON 05/30/2024] oxyCODONE IR (ROXICODONE) 5 mg immediate release tablet Take 1 tablet by mouth every 4 hours as needed for pain for up to 5 days. Patient should start on May 30, 2024. phentermine-topiramate ER (QSYMIA) 15-92 mg 24 Hr Capsule Take 1 capsule by mouth once daily for 90 days. (Patient not taking: Reported on 05/29/2024) hydroCHLOROthiazide 12.5 mg capsule Take 1 capsule by mouth once daily. (Patient not taking: Reported on 05/29/2024) potassium chloride SR (MICRO-K) 10 mEq CR capsule Take 2 capsules by mouth once daily. (Patient not taking: Reported on 03/08/2024) nabumetone (RELAFEN) 500 mg tablet Take 500 mg by mouth twice daily. (Patient not taking: Reported on 05/29/2024) No current facility-administered medications for this visit. 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 Cardiovascular: Negative. Gastrointestinal: Positive for abdominal pain, nausea and vomiting. Negative for anal bleeding, blood in stool, constipation, diarrhea and rectal pain. OBJECTIVE BP 136/98 Pulse 115 Wt 198 lb 3.1 oz (89.9kg) SpO2 96% Physical Exam Vitals and nursing note reviewed. Constitutional: General: She is awake. She is not in acute distress. Appearance: Normal appearance. She is well-developed and well-groomed. She is not ill-appearing, toxic-appearing or diaphoretic. HENT: Head: Normocephalic. Right Ear: External ear normal. Left Ear: External ear normal. Nose: Nose normal. Eyes: General: Vision grossly intact. Conjunctiva/sclera: Conjunctivae normal. Pupils: Pupils are equal, round, and reactive to light. Neck: Vascular: No JVD. Trachea: Trachea normal. Cardiovascular: Rate and Rhythm: Normal rate and regular rhythm. Pulses: Normal pulses. Heart sounds: Normal heart sounds. No murmur heard. Pulmonary: Effort: Pulmonary effort is normal. No accessory muscle usage, prolonged expiration or respiratory distress. Breath sounds: Normal breath sounds. Musculoskeletal: Cervical back: Neck supple. Skin: General: Skin is warm and dry. Capillary Refill: Capillary refill takes less than 2 seconds. Neurological: General: No focal deficit present. Mental Status: She is alert and oriented to person, place, and time. Mental status (more content not included)... Normal [facility] 12 Lead EKGon 05-28-2024 12 Lead EKG [facility] [address] [place] [address] 12 Lead EKG 05/28/24 0716 MR#: [id number] Acct: [id number] Name: ORA ADAMS Rep #: [id number] : 1970 53 From: Christopher Ferrari MD Attending Dr: Status: DEP ER Ordering Dr: Peter Hernandez DO Date: 05/28/24 Location: ED Sex: F C Admitted: Test Reason : abd pain Blood Pressure : */* mmHG Vent. Rate : 80 BPM Atrial Rate : 80 BPM P-R Int : 156 ms QRS Dur : 80 ms QT Int : 458 ms P-R-T Axes : 44 0 31 degrees QTcB Int : 528 ms Normal sinus rhythm Minimal voltage criteria for LVH, may be normal variant ( R in aVL ) ST T wave abnormality, consider anterolateral ischemia Prolonged QT Abnormal ECG baseline artifact Confirmed by Christopher Ferrari ([id number]), medical transcription editor CARMINE NUNEZ ([id number]) on 05/29/2024 9:20:09 AM Referred By: Confirmed By: Christopher Ferrari 05/29/24 09 Date Christopher Ferrari MD CC: STEWARD/STEWARDESS BATH-C Alirio Woodson; Dr. Peter Hernandez DO Signed Normal [facility] Abdomen/Pelvis W IV Cont ONL Yon 05-28-2024 Abdomen/Pelvis W IV Cont ONLY [facility] Imaging Services [address] [place] [address] Abdomen/Pelvis W IV Cont ONLY MR#: [id number] Acct: [id number] Name: ORA ADAMS Rep #: [id number] : 1970 F 53 From: Bjorn michelle DO PCP: AUGUSTINA Funes Status: REG ER Study: Abdomen/Pelvis W IV Cont ONLY Date of Exam: Exam# [id number] Ordering Dr: Peter Hernandez DO ADDENDUM by Dr. Bjorn Banda DO on 05/28/24 at 0852 [id number] EXAM: CT ABDOMEN AND PELVIS WITH INTRAVENOUS CONTRAST CLINICAL INDICATION: pancreatitis TECHNIQUE: Helically acquired images were obtained of the abdomen and pelvis with intravenous contrast. This CT exam was performed using one or more of the following dose reduction techniques: automated exposure control, adjustment of the mA and/or kV according to patient size, and/or use of iterative reconstruction technique. CONTRAST: IV 100mL Isovue-370 COMPARISON: Ultrasound, 12/04/2020. FINDINGS: LOWER THORAX: No significant abnormality. Lung bases are clear. No cardiomegaly. No significant pericardial effusion. ABDOMEN: LIVER: Low-attenuation throughout the liver consistent with fatty infiltration. No definite focal hepatic abnormality. GALLBLADDER AND BILE DUCTS: No significant abnormality. No calcified gallstones. No gallbladder distention or wall edema. No intra- or extrahepatic biliary ductal dilation. PANCREAS: No intrinsic pancreas lesion is present. No pancreatic ductal dilatation. There is diffuse peripancreatic inflammation and tracking fluid without peripancreatic abscess or pseudocyst. SPLEEN: No significant abnormality. Normal size without focal cystic or solid mass. ADRENALS: No significant abnormality. No nodules. KIDNEYS AND URETERS: No significant abnormality. Normal renal size and position. No hydronephrosis. STOMACH AND BOWEL: No significant abnormality. No stomach or bowel distention. No focal inflammatory change. PELVIS: APPENDIX: No evidence of acute appendicitis. BLADDER: No significant abnormality. REPRODUCTIVE: Normal as visualized. No mass. ABDOMEN and PELVIS: INTRAPERITONEAL SPACE: Diffuse edema in the upper mesentery. No free air. RETROPERITONEAL SPACE: Edema and minimal tracking fluid in the left side of the retroperitoneum. BONES/JOINTS: Degenerative changes in the spine. No suspicious lytic or blastic abnormality. SOFT TISSUES: Bilateral mammoplasty implants are present. Fat-containing right inguinal hernia and fat-containing umbilical hernia. VASCULATURE: Atherosclerosis. Abdominal aorta is non-dilated. LYMPH NODES: No significant abnormality. No enlarged lymph nodes. 05/28/24851 Date cc: AUGUSTINA Woodson; Dr. Peter Hernandez DO * Signed ADDENDUM by Dr. Bjorn Banda DO on 05/28/[address]/Abdomen/Pelvis W IV Cont ONLY IMPRESSION: 1. Findings consistent with acute pancreatitis. No focal pancreatic lesion, pseudocyst, or abscess. 2. Fatty liver. N.B. : Peter Hernandez DO, confirmed on 05/28/2024 09:02:06 (ET) that the healthcare facility has received the radiology report. Electronically Signed: Bjorn Banda, DO at 8:52 EST , 05/28/24908 Date cc: AUGUSTINA Woodson; Dr. Peter Hernandez, DO * Signed ACR Level 3 findings have been noted. An addendum which confirms receipt of the report will follow. [id number] EXAM: CT ABDOMEN AND PELVIS WITH INTRAVENOUS CONTRAST CLINICAL INDICATION: pancreatitis TECHNIQUE: Helically acquired images were obtained of the abdomen and pelvis with intravenous contrast. This CT exam was performed using one or more of the following dose reduction techniques: automated exposure control, adjustment of the mA and/or kV according to patient size, and/or use of iterative reconstruction technique. CONTRAST: IV 100mL [facility] COMPARISON: Ultrasound, 12/04/2020. FINDINGS: LOWER THORAX: No significant abnormality. Lung bases are clear. No cardiomegaly. No significant pericardial effusion. ABDOMEN: LIVER: Low-attenuation throughout the liver consistent with fatty infiltration. No definite focal hepatic abnormality. GALLBLADDER AND BILE DUCTS: No significant abnormality. No calcified gallstones. No gallbladder distention or wall edema. No intra- or extrahepatic biliary ductal dilation. PANCREAS: No intrinsic pancreas lesion is present. No pancreatic ductal dilatation. There is diffuse peripancreatic inflammation and tracking fluid without peripancreatic abscess or pseudocyst. SPLEEN: No significant abnormality. Normal size without focal cystic or taylor (more content not included)... Normal [facility] Alcohol, Blood (Medical)-Ser umon 05-28-2024 SERUM ETOH 80.0 mg/dL Normal [facility] Comment on above: Result Comment: The serum:whole blood ethanol ratio is approximately 1.14 and varies slightly with hematocrit. Medical Alcohol reference interval and critical value in non-tolerant individuals; 50 - 100 Impairment 100 Intoxication 100 - 250 Severe Poisoning 250 - 400 Deep/possible fatal coma Performed By: #### L 500.3400, L501.9100, L500.2500, L501.2450, L501.5200, L100.0100, L501.4020 #### [facility] [address] [place], [address] Basic Metabolic Profile (BMP )on 05-28-2024 BUN/CRE 6.1 RATIO Low 10-20 [facility] Comment on above: Order Comment: 'TROP ' Serial specimen #1, #2 or #3: 1 Performed By: #### L 500.3400, L501.9100, L500.2500, L501.2450, L501.5200, L100.0100, L501.4020 #### [facility] [address] [place], [place], [phone] (183 CA,Total 8.4 mg/dL Low 8.5-10.1 [facility] Comment on above: Order Comment: 'TROP ' Serial specimen #1, #2 or #3: 1 Performed By: #### L 500.3400, L501.9100, L500.2500, L501.2450, L501.5200, L100.0100, L501.4020 #### [facility] [address] [place], [address] Chloride [Moles/Vol] 99 mmol/L Normal 98-107 [facility] Comment on above: Order Comment: 'TROP ' Serial specimen #1, #2 or #3: 1 Performed By: #### L 500.3400, L501.9100, L500.2500, L501.2450, L501.5200, L100.0100, L501.4020 #### [facility] [address] [place], [address] CO2 [Moles/Vol] 27.0 mmol/L Normal 21.0-32.0 [facility] Comment on above: Order Comment: 'TROP ' Serial specimen #1, #2 or #3: 1 Performed By: #### L 500.3400, L501.9100, L500.2500, L501.2450, L501.5200, L100.0100, L501.4020 #### [facility] [address] [place], [address] Creatinine [Mass/Vol] 0.66 mg/dL Normal 0.55-1.02 [facility] Comment on above: Order Comment: 'TROP ' Serial specimen #1, #2 or #3: 1 Result Comment: The validity of the calculated GFR GFRAA in patients over 70 years has not been determined. Clinical correlation is essential. Performed By: #### L 500.3400, L501.9100, L500.2500, L501.2450, L501.5200, L100.0100, L501.4020 #### [facility] [address] [place], [place], [phone] (256 ECRCL 101.65 ml/min Normal [facility] Comment on above: Order Comment: 'TROP ' Serial specimen #1, #2 or #3: 1 Performed By: #### L 500.3400, L501.9100, L500.2500, L501.2450, L501.5200, L100.0100, L501.4020 #### [facility] [address] [place], [address] EST GFR - AA 120 mL/min Normal >60 [facility] Comment on above: Order Comment: 'TROP ' Serial specimen #1, #2 or #3: 1 Result Comment: Afri can English GFR Calc Performed By: #### L 500.3400, L501.9100, L500.2500, L501.2450, L501.5200, L100.0100, L501.4020 #### [facility] [address] [place], [address] GAP 9 Normal 5-15 [facility] Comment on above: Order Comment: 'TROP ' Serial specimen #1, #2 or #3: 1 Performed By: #### L 500.3400, L501.9100, L500.2500, L501.2450, L501.5200, L100.0100, L501.4020 #### [facility] [address] [place], [address] GFR/1.73 sq M.predicted among non-blacks MDRD (S/P/Bld) [Vol rate/Area] 99 mL/min/{1.73_m2} Normal >60 [facility] Comment on above: Order Comment: 'TROP ' Serial specimen #1, #2 or #3: 1 Result Comment: Non- GFR Calc Performed By: #### L 500.3400, L501.9100, L500.2500, L501.2450, L501.5200, L100.0100, L501.4020 #### [facility] [address] [place], [address] Glucose [Mass/Vol] 111 mg/dL High 74-106 [facility] Comment on above: Order Comment: 'TROP ' Serial specimen #1, #2 or #3: 1 Result Comment: Fast ing Glucose result from 100 to 125 mg/dL suggests IMPAIRED HOMEOSTASIS per A.D.A. criteria. Performed By: #### L 500.3400, L501.9100, L500.2500, L501.2450, L501.5200, L100.0100, L501.4020 #### [facility] [address] [place], [address] Potassium [Moles/Vol] 3.1 mmol/L Low 3.5-5.1 [facility] Comment on above: Order Comment: 'TROP ' Serial specimen #1, #2 or #3: 1 Result Comment: Slig ht Hemolysis, Result may be falsely increased. Performed By: #### L 500.3400, L501.9100, L500.2500, L501.2450, L501.5200, L100.0100, L501.4020 #### [facility] [address] [place], [address] Sodium [Moles/Vol] 134 mmol/L Low 136-145 [facility] Comment on above: Order Comment: 'TROP ' Serial specimen #1, #2 or #3: 1 Performed By: #### L 500.3400, L501.9100, L500.2500, L501.2450, L501.5200, L100.0100, L501.4020 #### [facility] [address] [place], [place], [phone] Urea nitrogen [Mass/Vol] 4 mg/dL Low 7-18 [facility] Comment on above: Order Comment: 'TROP ' Serial specimen #1, #2 or #3: 1 Performed By: #### L 500.3400, L501.9100, L500.2500, L501.2450, L501.5200, L100.0100, L501.4020 #### [facility] [address] [place], [place], [id number] CBC W/Diff, Automatedon 11-0 Anisocytosis Ql (Bld) 1+ Normal [facility] Comment on above: Performed By: #### L 500.3400, L501.9100, L500.2500, L501.2450, L501.5200, L100.0100, L501.4020 #### [facility] [address] [place], [place], [phone] Emergency Department Summary on 05-28-2024 Emergency Department Summary [facility] Medical Records Department [address] [place] [address] Emergency Department Summary 05/28/24 MR#: [id number] Acct: [id number] Name: ORA ADAMS Fanny Rep #: [id number] : 1970 53 From: Peter Hernandez DO PCP: AUGUSTINA Funes Status:DEP ER Location: ED HPI HPI - GI History of Present Illness Chief Complaint: Abd Pain Informant: patient and EMS Narrative Narrative: 53-year-old female presenting to the emergency room with abdominal chest pressure. Patient states that midday yesterday she began to experience a epigastric pressure that radiated up into her chest. She notes associated nausea. No dyspnea no back pain. She feels abdominal bloating. She notes that the upper abdomen is sore. She did not eat dinner last night. She states her mouth is very dry. Patient states that she is a drinker. She states she has been cutting back and has a few glasses of wine at night. Patient notes prior hysterectomy and mastectomy. She denies history of biliary disease or pancreatitis. She does take omeprazole. She notes normal bowel movement yesterday. Normal urination. She denies fever rashes or URI symptoms. She denies any urinary symptoms. Patient was admitted earlier this year with hyponatremia (110). Patient states it is very hard to talk as her mouth is dry PFSH PFS Medical History History of breast cancer HTN (hypertension) Hypothyroid Home Medications ???Medication ???Instructions ???Recorded ???Last Taken ???Type omeprazole 40 mg capsule,delayed 40 mg PO DAILY GERD 12/02/20 05/27/24 History release levothyroxine 150 mcg tablet 150 mcg PO DAILY thyroid 02/20/24 05/27/24 History hydrochlorothiazide 12.5 mg capsule 12.5 mg PO DAILY 05/28/24 05/27/24 History lorazepam 0.5 mg tablet (Ativan) 0.5 mg PO DAILY PRN sleep 05/28/24 05/28/24 History ondansetron 4 mg disintegrating 4 mg PO Q6H PRN PRN Nausea #15 tabs 05/28/24 Unknown Rx tablet oxycodone 5 mg tablet 5 mg PO Q6H PRN pain 3 days #12 05/28/24 Unknown Rx tabs zolpidem 5 mg tablet 5 mg PO QHS PRN 05/28/24 Unknown History Allergy/AdvReac Type Severity Reaction Status Date / Time Penicillins Allergy Hives Verified 05/28/24 06:55 Sulfa (Sulfonamide Allergy Hives Verified 05/28/24 06:55 Antibiotics) vancomycin Allergy Hives Verified 05/28/24 06:55 Surgical History H/O mastectomy H/O: hysterectomy Social History Smoking Status: Former smoker ROS ROS ED Constitutional Constitutional ED: Denies chills, fever(s) or weight loss Eyes Eyes: Denies change in vision or diplopia ENT ENT ED: Denies ear pain, rhinorrhea or sore throat Cardiovascular Cardiovascular: Reports chest pain; Denies orthopnea, palpitations or racing heartbeat Respiratory/Chest Respiratory/Chest: Denies cough, dyspnea or orthopnea Gastrointestinal Gastrointestinal: Reports abdominal pain, nausea and other Details: Abdominal bloating ; Denies constipation, diarrhea or vomiting Genitourinary Genitourinary ED: Denies dysuria, hematuria or urinary frequency Musculoskeletal Musculoskeletal: Denies arthralgias, back pain or myalgias Integumentary Denies abscess or rash Neurologic Neurologic: Denies headache(s), paresthesias or weakness Psychiatric Psychiatric: Denies anxiety, depression, suicidal ideation or suicidal thoughts Endocrine Endocrinology: Denies polydipsia, polyphagia or polyuria Allergic/Immunologic Allergic/Immunologic ED: Denies mouth swelling, tongue swelling or urticaria EXAM Physical Exam Const Vital Signs: 05/28/24 06:55 05/28/24 08:54 Temperature 98.6 F Temperature Source Oral Pulse Rate 81 64 Respiratory Rate 18 18 Blood Pressure 155/94 H 141/78 H Blood Pressure Mean 114 99 Pulse Ox 93 98 Oxygen Delivery Method Room Air Room Air Positive well nourished, well developed and obese General Appearance ED: well developed and NAD Nutritional Appearance: obese HEENT Reports normocephalic, head/scalp atraumatic and moist mucous membranes Eyes PERRL and EOMs intact bilaterally Neck no lymphadenopathy, supple and no JVD Resp normal respiratory effort and clear to auscultation bilaterally Cardio regular rate, regular rhythm and no murmurs GI Auscultation: normoactive bowel sounds Palpation: soft and tender epigastric; Negative for guarding, rigid, mass or rebound tenderness present Back/Spine no CVA tenderness and normal ROM Extremity normal to inspection General Extremety ED: Negative for edema General Extremity: Negative for edema Neuro oriented x3 and CN's II-XII intact bilaterally Sensorium / Orientation: alert Motor Exam: str (more content not included)... Normal [facility] L501.4020on 05-28-2024 TROPONIN-I HS 8 pg/mL Normal 3.0-54.0 [facility] Comment on above: Order Comment: 'TROP ' Serial specimen #1, #2 or #3: 1 Result Comment: Plea se Note: New Test Units and Gender Specific Reference Ranges. For more information see Policy Stat Procedure [place] High Sensitivity Troponin (TNIH) and attachments. Performed By: #### L 500.3400, L501.9100, L500.2500, L501.2450, L501.5200, L100.0100, L501.4020 #### [facility] [address] [place], [address] Lipaseon 05-28-2024 Lipase [Catalytic activity/Vol] 601 U/L High 13-75 [facility] Comment on above: Order Comment: 'TROP ' Serial specimen #1, #2 or #3: 1 Result Comment: Plea se note: LIPASE revised reference range effective 22. New Lipase methodology. Expected to produce lower values than the previous assay method. NEW Reference Range: 13 - 75 U/L Performed By: #### L 500.3400, L501.9100, L500.2500, L501.2450, L501.5200, L100.0100, L501.4020 #### [facility] [address] [place], [address] Liver Profileon 05-28-2024 Albumin [Mass/Vol] 3.1 g/dL Low 3.2-5.0 [facility] Comment on above: Order Comment: 'TROP ' Serial specimen #1, #2 or #3: 1 Performed By: #### L 500.3400, L501.9100, L500.2500, L501.2450, L501.5200, L100.0100, L501.4020 #### [facility] [address] [place], [address] ALK P 91 U/L Normal 45-117 [facility] Comment on above: Order Comment: 'TROP ' Serial specimen #1, #2 or #3: 1 Performed By: #### L 500.3400, L501.9100, L500.2500, L501.2450, L501.5200, L100.0100, L501.4020 #### [facility] [address] [place], [address] ALT [Catalytic activity/Vol] 55 U/L Normal 13-56 [facility] Comment on above: Order Comment: 'TROP ' Serial specimen #1, #2 or #3: 1 Performed By: #### L 500.3400, L501.9100, L500.2500, L501.2450, L501.5200, L100.0100, L501.4020 #### [facility] [address] [place], [address] AST [Catalytic activity/Vol] 99 U/L High 15-37 [facility] Comment on above: Order Comment: 'TROP ' Serial specimen #1, #2 or #3: 1 Result Comment: Slig ht Hemolysis, Result may be falsely increased. Performed By: #### L 500.3400, L501.9100, L500.2500, L501.2450, L501.5200, L100.0100, L501.4020 #### [facility] [address] [place], [address] Bilirubin [Mass/Vol] 1.30 mg/dL High 0.20-1.00 [facility] Comment on above: Order Comment: 'TROP ' Serial specimen #1, #2 or #3: 1 Result Comment: For patients on eltrombopag therapy, use of Dimension [place] TBIL is not recommended. Performed By: #### L 500.3400, L501.9100, L500.2500, L501.2450, L501.5200, L100.0100, L501.4020 #### [facility] [address] [place], [address] Bilirubin.direct [Mass/Vol] 0.38 mg/dL High 0.00-0.30 [facility] Comment on above: Order Comment: 'TROP ' Serial specimen #1, #2 or #3: 1 Performed By: #### L 500.3400, L501.9100, L500.2500, L501.2450, L501.5200, L100.0100, L501.4020 #### [facility] [address] [place], [address] Globulin (S) [Mass/Vol] 3.1 g/dL Normal 2.2-4.2 [facility] Comment on above: Order Comment: 'TROP ' Serial specimen #1, #2 or #3: 1 Performed By: #### L 500.3400, L501.9100, L500.2500, L501.2450, L501.5200, L100.0100, L501.4020 #### [facility] [address] [place], [address] T PROT 6.2 g/dL Low 6.4-8.2 [facility] Comment on above: Order Comment: 'TROP ' Serial specimen #1, #2 or #3: 1 Performed By: #### L 500.3400, L501.9100, L500.2500, L501.2450, L501.5200, L100.0100, L501.4020 #### [facility] [address] [place], [address] Magnesiumon 05-28-2024 Magnesium [Mass/Vol] 2.0 mg/dL Normal 1.6-2.6 [facility] Comment on above: Order Comment: 'TROP ' Serial specimen #1, #2 or #3: 1 Result Comment: Slig ht Hemolysis, Result may be falsely increased. Performed By: #### L 500.3400, L501.9100, L500.2500, L501.2450, L501.5200, L100.0100, L501.4020 #### [facility] [address] [place], [address] Urinalysis, Completeon 05-28 EPI,SQUAMOUS 0-5 SEEN Normal 5-10 [facility] Comment on above: Order Comment: 'TROP ' Serial specimen #1, #2 or #3: 1 Performed By: #### L 500.3400, L501.9100, L500.2500, L501.2450, L501.5200, L100.0100, L501.4020 #### [facility] [address] [place], [address] WBC 5-10 SEEN Normal 0-5 [facility] Comment on above: Order Comment: 'TROP ' Serial specimen #1, #2 or #3: 1 Performed By: #### L 500.3400, L501.9100, L500.2500, L501.2450, L501.5200, L100.0100, L501.4020 #### [facility] [address] [place], [address] BACTERIA 0 SEEN Normal None Seen [facility] Comment on above: Order Comment: 'TROP ' Serial specimen #1, #2 or #3: 1 Performed By: #### L 500.3400, L501.9100, L500.2500, L501.2450, L501.5200, L100.0100, L501.4020 #### [facility] [address] [place], [address] Mucus Ql (Urine sed) 0 SEEN Normal [facility] Comment on above: Order Comment: 'TROP ' Serial specimen #1, #2 or #3: 1 Performed By: #### L 500.3400, L501.9100, L500.2500, L501.2450, L501.5200, L100.0100, L501.4020 #### [facility] [address] [place], [address] RBC 0 SEEN Normal 0-5 [facility] Comment on above: Order Comment: 'TROP ' Serial specimen #1, #2 or #3: 1 Performed By: #### L 500.3400, L501.9100, L500.2500, L501.2450, L501.5200, L100.0100, L501.4020 #### [facility] [address] [place], [address] [facility] ORA [facility] ([id number]) 1970 F Date Time Provider Department 04/19/24 ALIRIO WOODSON INTWS During your visit today, we recorded the following information about you: Erika Angeles LPN 04/19/2024 10:21 AM Signed Electronic PA completed for qsymia cap ER. [facility] Looks like the do not cover any weight loss medicines. Pt probably knows already but the PA comes automatically when medicine is filed. Allergies As of Date: 04/19/2024 Noted Allergy Reaction BANANA 12/02/2022 4 - Hives PENICILLINS 12/02/2022 4 - Hives SULFA (SULFONAMIDE ANTIBIOTICS) 12/02/2022 4 - Hives VANCOMYCIN 12/02/2022 14 - Other: See Comments Comments: Red man's syndrome ZYVOX (LINEZOLID) 12/02/2022 7 - Swelling 10 - Anaphylaxis Date Reviewed: 03/08/2024 Reviewed by: Alirio Woodson APRN.ELECTRICAL INTEGRATOR - Fully Assessed Reason for Visit: Insurance Authorization [[id number]] Prescriptions as of 04/19/2024 - phentermine-topiramate ER (QSYMIA) 15-92 mg 24 Hr Capsule Take 1 capsule by mouth once daily for 90 days. - levothyroxine (SYNTHROID) 150 mcg tablet Take 1 tablet by mouth once daily. Take on empty stomach. For thyroid - zolpidem (AMBIEN) 5 mg tablet Take 1 tablet by mouth at bedtime as needed for up to 90 days. - hydroCHLOROthiazide 12.5 mg capsule Take 1 capsule by mouth once daily. - potassium chloride SR (MICRO-K) 10 mEq CR capsule Take 2 capsules by mouth once daily. - omeprazole (PRILOSEC) 40 mg capsule Take 1 capsule by mouth once daily. - nystatin (MYCOSTATIN) cream Apply to affected area twice daily. - nabumetone (RELAFEN) 500 mg tablet Take 500 mg by mouth twice daily. 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 [*12/02/2022 History of breast cancer [Z85.3] 12/02/2022 Arthritis [M19.90] 12/02/2022 Dysthymic disorder [F34.1] 12/02/2022 Obesity, Class II, BMI 35-39.9 [E66.9] 06/28/2023 Obesity, Class I, BMI 30-34.9 [E66.9] 12/07/2023 Encounter Status:Closed by ERIKA ANGELES on 04/19/24 Normal [facility] CBC W Auto Differential pane l (Bld)on 03-08-2024 Basophils (Bld) [#/Vol] 0.13 10*3/uL High <0.11 [facility] Comment on above: Order Comment: Speci men Type: BLOOD SPECIMENOrdering Facility: [facility] Address: [address] [place] [address] Performed By: #### 5 7021-8 ####[facility] LABCLIA [id number] [place] [address] [place] Basophils/100 WBC (Bld) 1.8 % Normal C [facility] Comment on above: Order Comment: Speci men Type: BLOOD SPECIMENOrdering Facility: [facility] Address: [address] [place] [address] Performed By: #### 5 7021-8 ####[facility] LABCLIA [id number] [place] [address] [place] Differential cell count method Nom (Bld) Auto Normal [facility] Comment on above: Order Comment: Speci men Type: BLOOD SPECIMENOrdering Facility: [facility] Address: [address] [place] [address] Performed By: #### 5 7021-8 ####[facility] LABCLIA [id number] [place] [address] [place] Eosinophils (Bld) [#/Vol] 0.19 10*3/uL Normal <0.46 [facility] Comment on above: Order Comment: Speci men Type: BLOOD SPECIMENOrdering Facility: [facility] Address: [address] [place] [address] Performed By: #### 5 7021-8 ####[facility] LABCLIA [id number] [place] [address] [place] Eosinophils/100 WBC (Bld) 2.7 % Normal [facility] Comment on above: Order Comment: Speci men Type: BLOOD SPECIMENOrdering Facility: [facility] Address: [address] [place] [address] Performed By: #### 5 7021-8 ####[facility] LABCLIA [id number] [place] [address] [place] Erythrocyte distribution width (RBC) [Ratio] 17.7 % High 11.5-15.0 [facility] Comment on above: Order Comment: Speci men Type: BLOOD SPECIMENOrdering Facility: [facility] Address: [address] [place] [address] Performed By: #### 5 7021-8 ####[facility] LABCLIA [id number] [place] [address] [place] Hematocrit (Bld) [Volume fraction] 40.2 % Normal 36.0-46.0 [facility] Comment on above: Order Comment: Speci men Type: BLOOD SPECIMENOrdering Facility: [facility] Address: [address] [place] [address] Performed By: #### 5 7021-8 ####[facility] LABCLIA [id number] [place] [address] [place] Hemoglobin (Bld) [Mass/Vol] 12.6 g/dL Normal 11.5-15.5 [facility] Comment on above: Order Comment: Speci men Type: BLOOD SPECIMENOrdering Facility: [facility] Address: [address] [place] [address] Performed By: #### 5 7021-8 ####[facility] LABCLIA [id number] [place] [address] [place] Immature granulocytes (Bld) [#/Vol] 10*3/uL Normal <0.10 [facility] Comment on above: Order Comment: Speci men Type: BLOOD SPECIMENOrdering Facility: [facility] Address: [address] [place] [address] Performed By: #### 5 7021-8 ####[facility] LABCLIA [id number] [place] [address] [place] Immature granulocytes/100 WBC (Bld) 0.3 % Normal [facility] Comment on above: Order Comment: Speci men Type: BLOOD SPECIMENOrdering Facility: [facility] Address: [address] [place] [address] Performed By: #### 5 7021-8 ####[facility] LABCLIA [id number] [place] [address] [place] Lymphocytes (Bld) [#/Vol] 1.85 10*3/uL Normal 1.00-4.00 [facility] Comment on above: Order Comment: Speci men Type: BLOOD SPECIMENOrdering Facility: [facility] Address: [address] [place] [address] Performed By: #### 5 7021-8 ####[facility] LABCLIA [id number] [place] [address] [place] Lymphocytes/100 WBC (Bld) 26.2 % Normal [facility] Comment on above: Order Comment: Speci men Type: BLOOD SPECIMENOrdering Facility: [facility] Address: [address] [place] [address] Performed By: #### 5 7021-8 ####[facility] LABCLIA [id number] [place] [address] [place] MCH (RBC) [Entitic mass] 32.5 pg Normal 26.0-34.0 [facility] Comment on above: Order Comment: Speci men Type: BLOOD SPECIMENOrdering Facility: [facility] Address: [address] [place] [address] Performed By: #### 5 7021-8 ####[facility] LABIA [id number] [place] [address] [place] MCHC (RBC) [Mass/Vol] 31.3 g/dL Normal 30.5-36.[address] [facility] Comment on above: Order Comment: Speci men Type: BLOOD SPECIMENOrdering Facility: [facility] Address: [address] [place] [address] Performed By: #### 5 7021-8 ####[facility] LABIA [id number] [place] [address] [place] MCV (RBC) [Entitic vol] 103.6 fL High 80.0-100.0 C [facility] Comment on above: Order Comment: Speci men Type: BLOOD SPECIMENOrdering Facility: [facility] Address: [address] [place] [address] Performed By: #### 5 7021-8 ####[facility] LABCLIA [id number] [place] [address] [place] Monocytes (Bld) [#/Vol] 0.68 10*3/uL Normal <0.87 [facility] Comment on above: Order Comment: Speci men Type: BLOOD SPECIMENOrdering Facility: [facility] Address: [address] [place] [address] Performed By: #### 5 7021-8 ####[facility] LABCLIA [id number] [place] [address] [place] Monocytes/100 WBC (Bld) 9.6 % Normal [facility] Comment on above: Order Comment: Speci men Type: BLOOD SPECIMENOrdering Facility: [facility] Address: [address] [place] [address] Performed By: #### 5 7021-8 ####[facility] LABCLIA [id number] [place] [address] [place] Neutrophils (Bld) [#/Vol] 4.18 10*3/uL Normal 1.45-7.50 [facility] Comment on above: Order Comment: Speci men Type: BLOOD SPECIMENOrdering Facility: [facility] Address: [address] [place] [address] Performed By: #### 5 7021-8 ####[facility] LABCLIA [id number] [place] [address] [place] Neutrophils/100 WBC (Bld) 59.4 % Normal [facility] Comment on above: Order Comment: Speci men Type: BLOOD SPECIMENOrdering Facility: [facility] Address: [address] [place] [address] Performed By: #### 5 7021-8 ####[facility] LABCLIA [id number] [place] [address] [place] Nucleated RBC (Bld) [#/Vol] 10*3/uL Normal <0.01 [facility] Comment on above: Order Comment: Speci men Type: BLOOD SPECIMENOrdering Facility: [facility] Address: [address] [place] [address] Performed By: #### 5 7021-8 ####[facility] LABCLIA [id number] [place] [id number] [place] Nucleated RBC/100 WBC (Bld) [Ratio] 0.0 /100 WBC Normal [facility] Comment on above: Order Comment: Speci men Type: BLOOD SPECIMENOrdering Facility: [facility] Address: [address] [place] [address] Performed By: #### 5 7021-8 ####[facility] LABIA [id number] [place] [address] [place] Platelet mean volume (Bld) [Entitic vol] 10.3 fL Normal 9.0-12.7 [facility] Comment on above: Order Comment: Speci men Type: BLOOD SPECIMENOrdering Facility: [facility] Address: [address] [place] [address] Performed By: #### 5 7021-8 ####[facility] LABIA [id number] [place] [address] [place] Platelets (Bld) [#/Vol] 471 10*3/uL High 150-400 [facility] Comment on above: Order Comment: Speci men Type: BLOOD SPECIMENOrdering Facility: [facility] Address: [address] [place] [address] Performed By: #### 5 7021-8 ####[facility] LABIA [id number] [place] [address] [place] RBC (Bld) [#/Vol] 3.88 10*6/uL Low 3.90-5.20 [facility] Comment on above: Order Comment: Speci men Type: BLOOD SPECIMENOrdering Facility: [facility] Address: [address] [place] [address] Performed By: #### 5 7021-8 ####[facility] LABIA [id number] [place] [address] [place] WBC (Bld) [#/Vol] 7.05 10*3/uL Normal 3.70-11.00 [facility] Comment on above: Order Comment: Speci men Type: BLOOD SPECIMENOrdering Facility: [facility] Address: [address] [place] [address] Performed By: #### 5 7021-8 ####[facility] LABCLIA [id number] [place]AM[place] [id number] [place] [facility] CNOVon 03-08-2024 CNOV Office Visit (INTMWS ) ----- ORA ADAMS ([id number]) 1970 F Date Time Provider Department 03/08/24 7:20 AM ALIRIO WOODSON INTMWS During your visit today, we recorded the following information about you: Temperature Pulse Blood pressure Weight 98.4 degrees 75/minute 132/90 84.2 kg Alirio Woodson APRN.ELECTRICAL INTEGRATOR 03/08/2024 8:05 AM Signed SUBJECTIVE Ora Adams is a 53 year old female here today for a check up on her medical problems. Chief Complaint Patient presents with: Hospital Follow Up: [facility] 02/19 for low sodium, elevated liver enzymes, dehydration HPI Ora Adams is a 53 year old female. She is an established patient. Here today for follow up from being seen at [facility] ER on 02/19. Admitted and discharged on 02/22. Sodium was 110 on 02/19, hypok and hypomag, alcohol use. Sodium was 128 on discharge. Stopped her HCTZ and lisinopril. Feeling okay. Doing an electrolyte replacement daily. Starting to notice more swelling in ankles and hands. Continues to have hip pain. Working with ortho. Her medications were reviewed today and her list is now up to date. Medications Current Outpatient Medications Medication Sig levothyroxine (SYNTHROID) 150 mcg tablet Take 1 tablet by mouth once daily. Take on empty stomach. For thyroid zolpidem (AMBIEN) 5 mg tablet Take 1 tablet by mouth at bedtime as needed for up to 90 days. omeprazole (PRILOSEC) 40 mg capsule Take 1 capsule by mouth once daily. nystatin (MYCOSTATIN) cream Apply to affected area twice daily. nabumetone (RELAFEN) 500 mg tablet Take 500 mg by mouth twice daily. hydroCHLOROthiazide 12.5 mg capsule Take 1 capsule by mouth once daily. traMADol (ULTRAM) 50 mg tablet Take 1 tablet by mouth every 8 hours as needed for pain for up to 7 days. potassium chloride SR (MICRO-K) 10 mEq CR capsule Take 2 capsules by mouth once daily. (Patient not taking: Reported on 03/08/2024) No current facility-administered medications for this visit. 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 Respiratory: Negative. Cardiovascular: Negative. OBJECTIVE BP 132/90 Pulse 75 Temp 98.4 Wt 185 lb 10 oz (84.2kg) SpO2 99% Physical Exam Vitals and nursing note reviewed. Constitutional: General: She is awake. She is not in acute distress. Appearance: Normal appearance. She is well-developed and well-groomed. She is not ill-appearing, toxic-appearing or diaphoretic. HENT: Head: Normocephalic. Right Ear: External ear normal. Left Ear: External ear normal. Nose: Nose normal. Eyes: General: Vision grossly intact. Conjunctiva/sclera: Conjunctivae normal. Pupils: Pupils are equal, round, and reactive to light. Neck: Vascular: No JVD. Trachea: Trachea normal. Cardiovascular: Rate and Rhythm: Normal rate and regular rhythm. Pulses: Normal pulses. Heart sounds: Normal heart sounds. No murmur heard. Pulmonary: Effort: Pulmonary effort is normal. No accessory muscle usage, prolonged expiration or respiratory distress. Breath sounds: Normal breath sounds. Musculoskeletal: Cervical back: Neck supple. Skin: General: Skin is warm and dry. Capillary Refill: Capillary refill takes less than 2 seconds. Neurological: General: No focal deficit present. Mental Status: She is alert and oriented to person, place, and time. Mental status is at baseline. Psychiatric: Attention and Perception: Attention and perception normal. Mood and Affect: Mood and affect normal. Speech: Speech normal. Behavior: Behavior normal. Behavior is cooperative. Thought Content: Thought content normal. Cognition and Memory: Cognition and memory normal. Judgment: Judgment normal. ASSESSMENT/PLAN: 1. Hyponatremia - ICD9: 276.1, ICD10: E87.1 (primary diagnosis) Repeat sodium levels today, continue with the daily electrolyte replacement. Limit alcohol use. Restart HCTZ at a lower dose. 2. Hypokalemia - ICD9: 276.8, ICD10: E87.6 See #1 3. Hypomagnesemia - ICD9: 275.2, ICD10: E83.42 See #1 4. Primary hypertension - ICD9: 401.9, ICD10: I10 - Worsening control - Restart low dose of hydrochlorothiazide (more content not included)... Normal [facility] Comprehensive metabolic 2000 panelon 03-08-2024 Albumin [Mass/Vol] 3.8 g/dL Low 3.9-4.9 [facility] Comment on above: Order Comment: Speci aby Type: BLOOD SPECIMENOrdering Facility: [facility] Address: [address] [place] [address] Performed By: #### 1 9123-9, 97645-1 ####[facility] LABCLIA [id number] [place] [address] [place] ALP [Catalytic activity/Vol] 82 U/L Normal 34-123 [facility] Comment on above: Order Comment: Speci men Type: BLOOD SPECIMENOrdering Facility: [facility] Address: [address] [place] [id number] Performed By: #### 1 9123-9, 31240-5 ####[facility] LABCLIA [id number] [place] [address] [place] ALT [Catalytic activity/Vol] 16 U/L Normal 7-38 [facility] Comment on above: Order Comment: Speci men Type: BLOOD SPECIMENOrdering Facility: [facility] Address: [address] [place] [address] Performed By: #### 1 23-9, 00069-1 ####[facility] LABCLIA [id number] [place] [address] [place] Anion gap [Moles/Vol] 12 mmol/L Normal 8-[address] [facility] Comment on above: Order Comment: Speci men Type: BLOOD SPECIMENOrdering Facility: [facility] Address: [address] [place] [address] Performed By: #### 1 23-9, 22085-1 ####[facility] LABCLIA [id number] [place] [address] [place] AST [Catalytic activity/Vol] 25 U/L Normal 13-35 [facility] Comment on above: Order Comment: Speci men Type: BLOOD SPECIMENOrdering Facility: [facility] Address: [address] [place] [address] Performed By: #### 1 23-9, 41150-1 ####[facility] LABCLIA [id number] [place] [id number] [place] Bilirubin [Mass/Vol] 0.7 mg/dL Normal 0.2-1.3 [facility] Comment on above: Order Comment: Speci men Type: BLOOD SPECIMENOrdering Facility: [facility] Address: [address] [place] [address] Performed By: #### 1 23-9, 15605-6 ####[facility] LABCLIA [id number] [address] [address] [place] Calcium [Mass/Vol] 9.5 mg/dL Normal 8.5-10.2 [facility] Comment on above: Order Comment: Speci men Type: BLOOD SPECIMENOrdering Facility: [facility] Address: [address] [place] [address] Performed By: #### 1 23-9, ####[facility] LABCLIA [id number] [place] [id number] [place] Chloride [Moles/Vol] 105 mmol/L Normal 98-107 [facility] Comment on above: Order Comment: Speci men Type: BLOOD SPECIMENOrdering Facility: [facility] Address: [address] [place] [address] Performed By: #### 1 239, ####[facility] LABCLIA [id number] [place] [address] [place] CO2 [Moles/Vol] 24 mmol/L Normal 22-30 [facility] Comment on above: Order Comment: Speci men Type: BLOOD SPECIMENOrdering Facility: [facility] Address: [address] [place] [address] Performed By: #### 1 23-9, ####[facility] LABCLIA [id number] [place] [address] [place] Creatinine [Mass/Vol] 0.77 mg/dL Normal 0.58-0.[address] [facility] Comment on above: Order Comment: Speci men Type: BLOOD SPECIMENOrdering Facility: [facility] Address: [address] [place] [address] Performed By: #### 1 9123-9, ####[facility] LABCLIA [id number] [place] [address] [place] Creatinine and Glomerular filtration rate.predicted panel (S/P/Bld) 91 mL/min/1.73m??? Normal >=60 [facility] Comment on above: Order Comment: Ky badillo Type: BLOOD SPECIMENOrdering Facility: [facility] Address: [address] [place] [address] Result Comment: Ghada mated Glomerular Filtration Rate (eGFR) is calculated using the 2020 CKD-EPI creatinine equation. This equation utilizes serum creatinine, sex, and age as parameters. The creatinine assay has traceable calibration to isotope dilution-mass spectrometry. Refer to KDIGO guidelines for clinical interpretation. In patients with unstable renal function, e.g. those with acute kidney injury, the eGFR may not accurately reflect actual GFR. Performed By: #### 1 9123-9, 05115-4 ####[facility] LABCLIA [id number] [place] [address] [place] Glucose [Mass/Vol] 74 mg/dL Normal 74-99 [facility] Comment on above: Order Comment: Ky badillo Type: BLOOD SPECIMENOrdering Facility: [facility] Address: [address] [place] [address] Result Comment: The [place] Diabetes Association (ADA) provides guidance for cutoff values for fasting glucose and random glucose. The ADA defines fasting as no caloric intake for at least 8 hours. Fasting plasma glucose results between 100 to 125 mg/dL indicate increased risk for diabetes (prediabetes). Fasting plasma glucose results greater than or equal to 126 mg/dL meet the criteria for diagnosis of diabetes. In the absence of unequivocal hyperglycemia, results should be confirmed by repeat testing. In a patient with classic symptoms of hyperglycemia or hyperglycemic crisis, random plasma glucose results greater than or equal to 200 mg/dL meet the criteria for diagnosis of diabetes. Reference: Standards of Medical Care in Diabetes 2016, English Diabetes Association. Diabetes Care. 2016.39(Suppl 1). Performed By: #### 1 9123-9, 78442-2 ####[facility] LABIA [id number] [place] [address] [place] Potassium [Moles/Vol] 4.3 mmol/L Normal 3.7-5.[address] [facility] Comment on above: Order Comment: Speci men Type: BLOOD SPECIMENOrdering Facility: [facility] Address: [address] [place] [address] Performed By: #### 1 9123-9, ####[facility] LABCLIA [id number] [address] [address] [place] Protein [Mass/Vol] 6.6 g/dL Normal 6.3-8.0 [facility] Comment on above: Order Comment: Speci men Type: BLOOD SPECIMENOrdering Facility: [facility] Address: [address] [place] [address] Performed By: #### 1 9123-9, 04579-0 ####[facility] LABCLIA [id number] [place] [address] [place] Sodium [Moles/Vol] 141 mmol/L Normal 136-144 [facility] Comment on above: Order Comment: Speci men Type: BLOOD SPECIMENOrdering Facility: [facility] Address: [address] [place] [address] Performed By: #### 1 9123-9, ####[facility] LABCLIA [id number] [place] [address] [place] Urea nitrogen [Mass/Vol] 7 mg/dL Normal 7-21 [facility] Comment on above: Order Comment: Speci men Type: BLOOD SPECIMENOrdering Facility: [facility] Address: [address] [place] [address] Performed By: #### 1 9123-9, ####[facility] LABCLIA [id number] [place] [address] [place] Magnesium SerPl-mCncon 03-08 Magnesium [Mass/Vol] 2.3 mg/dL Normal 1.7-2.3 [facility] Comment on above: Order Comment: Speci men Type: BLOOD SPECIMENOrdering Facility: [facility] Address: [address] [place] [address] Performed By: #### 1 9123-9, 75079-5 ####[facility] LABCLIA [id number] [address] [id number] [id number] [place] Basic Metabolic Profile (BMP )on 02-23-2024 BUN/CRE 7.3 RATIO Low 10-20 [facility] Comment on above: Performed By: #### L 300.3900, L300.4310 #### [facility] [address] [place], [address] CA,Total 8.0 mg/dL Low 8.5-10.1 [facility] Comment on above: Performed By: #### L 300.3900, L300.4310 #### [facility] [address] [place], [address] Chloride [Moles/Vol] 96 mmol/L Low 98-107 [facility] Comment on above: Performed By: #### L 300.3900, L300.4310 #### [facility] [address] [place], [address] CO2 [Moles/Vol] 27.0 mmol/L Normal 21.0-32.0 [facility] Comment on above: Performed By: #### L 300.3900, L300.4310 #### [facility] [address] [place], [address] Creatinine [Mass/Vol] 0.55 mg/dL Normal 0.55-1.02 [facility] Comment on above: Result Comment: The validity of the calculated GFR GFRAA in patients over 70 years has not been determined. Clinical correlation is essential. Performed By: #### L 300.3900, L300.4310 #### [facility] [address] [place], [address] ECRCL 118.77 ml/min Normal [facility] Comment on above: Performed By: #### L 300.3900, L300.4310 #### [facility] [address] [place], [address] EST GFR - AA 147 mL/min Normal >60 [facility] Comment on above: Result Comment: Afri can English GFR Calc Performed By: #### L 300.3900, L300.4310 #### [facility] [address] [place], [address] GAP 5 Normal 5-15 [facility] Comment on above: Performed By: #### L 300.3900, L300.4310 #### [facility] [address] [place], [address] GFR/1.73 sq M.predicted among non-blacks MDRD (S/P/Bld) [Vol rate/Area] 122 mL/min/{1.73_m2} Normal >60 [facility] Comment on above: Result Comment: Non- GFR Calc Performed By: #### L 300.3900, L300.4310 #### [facility] [address] [place], [address] Glucose [Mass/Vol] 83 mg/dL Normal 74-106 [facility] Comment on above: Performed By: #### L 300.3900, L300.4310 #### [facility] [address] [place], [address] Potassium [Moles/Vol] 4.0 mmol/L Normal 3.5-5.1 [facility] Comment on above: Performed By: #### L 300.3900, L300.4310 #### [facility] [address] [place], [address] Sodium [Moles/Vol] 128 mmol/L Low 136-145 [facility] Comment on above: Performed By: #### L 300.3900, L300.4310 #### [facility] [address] [place], [address] Urea nitrogen [Mass/Vol] 4 mg/dL Low 7-18 [facility] Comment on above: Performed By: #### L 300.3900, L300.4310 #### [facility] [address] [place], [address] CBC W/Diff, Automatedon 07-3 Absolute Lymph 1.03 X10 3/uL Normal 0.83-4.51 [facility] Comment on above: Performed By: #### L 500.2500, L100.0100 #### [facility] [address] [place], [address] Absolute Neut 3.7 X10 3/uL Normal 2.0-7.7 [facility] Comment on above: Performed By: #### L 500.2500, L100.0100 #### [facility] [address] [place], [address] Basophils/100 WBC (Bld) 1.2 % High 0-1 [facility] Comment on above: Performed By: #### L 500.2500, L100.0100 #### [facility] [address] [place], [address] Eosinophils/100 WBC (Bld) 6.0 % High 0-5 [facility] Comment on above: Performed By: #### L 500.2500, L100.0100 #### [facility] [address] [place], [address] Erythrocyte distribution width (RBC) [Ratio] 17.2 % High 11.6-14.6 [facility] Comment on above: Performed By: #### L 500.2500, L100.0100 #### [facility] [address] [place], [address] Hematocrit (Bld) [Volume fraction] 34.3 % Low 37-47 [facility] Comment on above: Performed By: #### L 500.2500, L100.0100 #### [facility] [address] [place], [address] Hemoglobin (Bld) [Mass/Vol] 11.8 g/dL Low 12.0-15.0 [facility] Comment on above: Performed By: #### L 500.2500, L100.0100 #### [facility] [address] [place], [address] IG% 1.100 High 0.0-0.9 [facility] Comment on above: Result Comment: IG% - Immature Granulocytes (promyelocytes, myelocytes and metamyelocytes) > 1% indicates that a LEFT SHIFT is Present. Performed By: #### L 500.2500, L100.0100 #### [facility] [address] [place], [address] Lymphocytes/100 WBC (Bld) 18.2 % Low 19-41 [facility] Comment on above: Performed By: #### L 500.2500, L100.0100 #### [facility] [address] [place], [address] MCH (RBC) [Entitic mass] 32.4 pg High 27.0-32.0 [facility] Comment on above: Performed By: #### L 500.2500, L100.0100 #### [facility] [address] [place], [address] MCHC (RBC) [Mass/Vol] 34.4 g/dL Normal 32-36 [facility] Comment on above: Performed By: #### L 500.2500, L100.0100 #### [facility] [address] [place], [address] MCV (RBC) [Entitic vol] 94.2 fL Normal 81-99 [facility] Comment on above: Performed By: #### L 500.2500, L100.0100 #### [facility] [address] [place], [address] Monocytes/100 WBC (Bld) 8.3 % Normal 0-10 [facility] Comment on above: Performed By: #### L 500.2500, L100.0100 #### [facility] [address] [place], [address] Neutrophils/100 WBC (Bld) 65.2 % Normal 47-70 [facility] Comment on above: Performed By: #### L 500.2500, L100.0100 #### [facility] [address] [place], [address] Nucleated RBC (Bld) [#/Vol] 0 10*3/uL Normal 0-5 [facility] Comment on above: Performed By: #### L 500.2500, L100.0100 #### [facility] [address] [place], [address] Platelet mean volume (Bld) [Entitic vol] 9.3 fL Normal 6.2-12.0 [facility] Comment on above: Performed By: #### L 500.2500, L100.0100 #### [facility] [address] [place], [address] Platelets (Bld) [#/Vol] 195 10*3/uL Normal 150-450 [facility] Comment on above: Performed By: #### L 500.2500, L100.0100 #### [facility] [address] [place], [address] RBC (Bld) [#/Vol] 3.64 10*6/uL Low 4.2-5.4 [facility] Comment on above: Performed By: #### L 500.2500, L100.0100 #### [facility] [address] [place], [address] RDW SD 59.6 fl High 35.1-43.9 [facility] Comment on above: Performed By: #### L 500.2500, L100.0100 #### [facility] [address] [place], [address] WBC (Bld) [#/Vol] 5.7 10*3/uL Normal 4.4-11.0 [facility] Comment on above: Performed By: #### L 500.2500, L100.0100 #### [facility] [address] [place], [address] Discharge Instructionon 01-25 Discharge Instruction [facility] Medical Records Department [address] [facility] [place] [address] Instructions for Home/Discharge Instructions 02/23/24 0900 MR#: [id number] Acct: [id number] Name: ORA ADAMS Rep #: [id number] : 1970 53 From: Ash Oneil MD PCP: Alirio Woodson NP-C Status:ADM IN Discharge Instructions Diet Discharge Diet: Low fat / Low cholesterol Activity Discharge Activity: Return to Normal Activity Dressing / Incision Call your doctor if you observe: Fever of 101 or Higher, Shortness of breath, Dizziness, Fainting spells, Swelling in the ankles, Chest pain and Increased palpitations (irregular heartbeat) Follow Up Care Test Results: Test results from this visit will be discussed in further detail at your follow-up appointment, if applicable. Discharge Plan Admission Admit Date/Time: 02/20/24 02:28 Attending Provider: Ash Oneil Primary Care Provider: Alirio Woodson NP Consulting Providers: Corby Brooks; Michael Banuelos; Chun Khan Instructions Patient Instructions: Addiction: Your Treatment Options, Hyponatremia Dc, ED Alcohol Abuse Additional Instructions / Restrictions: Follow-up with your PCP in 3 to 5 days to monitor your blood pressure. If it is necessary to reinstitute antihypertensive medication, would recommend Norvasc or beta-mandi given your significant issues with hyponatremia in the setting of alcohol abuse. Discharge Orders/Prescriptions Prescriptions: Continued trazodone 50 mg tablet 25 - 50 mg PO QHS PRN (Reason: Sleep) omeprazole 40 mg capsule,delayed release(DR/EC) 40 mg PO DAILY levothyroxine 150 mcg tablet 150 mcg PO DAILY Discontinued lisinopril-hydrochlorothi azide 20-25 mg tablet 1 tab PO DAILY Referrals / Follow Up: Alirio Woodson NP, ST[facility] [Primary Care Provider] - Within 1 Week Disposition Disposition (needs filled in before D/C Order can be placed): Home, Self Care 02/23/24 0914 Ash Oneil MD CC: AUGUSTINA Woodson; Dr. Corby Brooks DO; Dr. Michael Banuelos MD; Dr. Chun Khan MD Signed Normal [facility] Basic Metabolic Profile (BMP )on 02-22-2024 BUN/CRE 11.7 RATIO Normal 10-20 [facility] Comment on above: Performed By: #### L 300.3900, L300.4310 #### [facility] [address] [place], [address] CA,Total 7.7 mg/dL Low 8.5-10.1 [facility] Comment on above: Performed By: #### L 300.3900, L300.4310 #### [facility] [address] [place], [address] Chloride [Moles/Vol] 89 mmol/L Low 98-107 [facility] Comment on above: Performed By: #### L 300.3900, L300.4310 #### [facility] [address] [place], [address] CO2 [Moles/Vol] 27.0 mmol/L Normal 21.0-32.0 [facility] Comment on above: Performed By: #### L 300.3900, L300.4310 #### [facility] [address] [place], [address] Creatinine [Mass/Vol] 0.60 mg/dL Normal 0.55-1.02 [facility] Comment on above: Result Comment: The validity of the calculated GFR GFRAA in patients over 70 years has not been determined. Clinical correlation is essential. Performed By: #### L 300.3900, L300.4310 #### [facility] [address] [place], [address] ECRCL 108.94 ml/min Normal [facility] Comment on above: Performed By: #### L 300.3900, L300.4310 #### [facility] [address] [place], [address] EST GFR - AA 133 mL/min Normal >60 [facility] Comment on above: Result Comment: Afri can English GFR Calc Performed By: #### L 300.3900, L300.4310 #### [facility] [address] [place], [address] GAP 6 Normal 5-15 [facility] Comment on above: Performed By: #### L 300.3900, L300.4310 #### [facility] [address] [place], [address] GFR/1.73 sq M.predicted among non-blacks MDRD (S/P/Bld) [Vol rate/Area] 110 mL/min/{1.73_m2} Normal >60 [facility] Comment on above: Result Comment: Non- GFR Calc Performed By: #### L 300.3900, L300.4310 #### [facility] [address] [place], [address] Glucose [Mass/Vol] 89 mg/dL Normal 74-106 [facility] Comment on above: Performed By: #### L 300.3900, L300.4310 #### [facility] [address] [place], [address] Potassium [Moles/Vol] 3.7 mmol/L Normal 3.5-5.1 [facility] Comment on above: Performed By: #### L 300.3900, L300.4310 #### [facility] [address] [place], [address] Sodium [Moles/Vol] 122 mmol/L Low 136-145 [facility] Comment on above: Performed By: #### L 300.3900, L300.4310 #### [facility] [address] [place], [address] Urea nitrogen [Mass/Vol] 7 mg/dL Normal 7-18 [facility] Comment on above: Performed By: #### L 300.3900, L300.4310 #### [facility] [address] [place], [address] CBC W/Diff, Automatedon 07-3 0-2023 Absolute Lymph 0.84 X10 3/uL Normal 0.83-4.51 [facility] Comment on above: Performed By: #### L 300.3900, L300.4310 #### [facility] [address] [place], [address] Absolute Neut 3.7 X10 3/uL Normal 2.0-7.7 [facility] Comment on above: Performed By: #### L 300.3900, L300.4310 #### [facility] [address] [place], [address] Basophils/100 WBC (Bld) 1.0 % Normal 0-1 [facility] Comment on above: Performed By: #### L 300.3900, L300.4310 #### [facility] [address] [place], [address] Eosinophils/100 WBC (Bld) 3.5 % Normal 0-5 [facility] Comment on above: Performed By: #### L 300.3900, L300.4310 #### [facility] [address] [place], [address] Erythrocyte distribution width (RBC) [Ratio] 16.9 % High 11.6-14.6 [facility] Comment on above: Performed By: #### L 300.3900, L300.4310 #### [facility] [address] [place], [address] Hematocrit (Bld) [Volume fraction] 33.8 % Low 37-47 [facility] Comment on above: Performed By: #### L 300.3900, L300.4310 #### [facility] [address] [place], [address] Hemoglobin (Bld) [Mass/Vol] 11.7 g/dL Low 12.0-15.0 [facility] Comment on above: Performed By: #### L 300.3900, L300.4310 #### [facility] [address] [place], [address] IG% 0.800 Normal 0.0-0.9 [facility] Comment on above: Result Comment: IG% - Immature Granulocytes (promyelocytes, myelocytes and metamyelocytes) > 1% indicates that a LEFT SHIFT is Present. Performed By: #### L 300.3900, L300.4310 #### [facility] [address] [place], [address] Lymphocytes/100 WBC (Bld) 16.1 % Low 19-41 [facility] Comment on above: Performed By: #### L 300.3900, L300.4310 #### [facility] [address] [place], [address] MCH (RBC) [Entitic mass] 32.7 pg High 27.0-32.0 [facility] Comment on above: Performed By: #### L 300.3900, L300.4310 #### [facility] [address] [place], [address] MCHC (RBC) [Mass/Vol] 34.6 g/dL Normal 32-36 [facility] Comment on above: Performed By: #### L 300.3900, L300.4310 #### [facility] [address] [place], [address] MCV (RBC) [Entitic vol] 94.4 fL Normal 81-99 [facility] Comment on above: Performed By: #### L 300.3900, L300.4310 #### [facility] [address] [place], [address] Monocytes/100 WBC (Bld) 8.6 % Normal 0-10 [facility] Comment on above: Performed By: #### L 300.3900, L300.4310 #### [facility] [address] [place], [address] Neutrophils/100 WBC (Bld) 70.0 % Normal 47-70 [facility] Comment on above: Performed By: #### L 300.3900, L300.4310 #### [facility] [address] [place], [address] Nucleated RBC (Bld) [#/Vol] 0 10*3/uL Normal 0-5 [facility] Comment on above: Performed By: #### L 300.3900, L300.4310 #### [facility] [address] [place], [address] Platelet mean volume (Bld) [Entitic vol] 9.5 fL Normal 6.2-12.0 [facility] Comment on above: Performed By: #### L 300.3900, L300.4310 #### [facility] [address] [place], [address] Platelets (Bld) [#/Vol] 193 10*3/uL Normal 150-450 [facility] Comment on above: Performed By: #### L 300.3900, L300.4310 #### [facility] [address] [place], [address] RBC (Bld) [#/Vol] 3.58 10*6/uL Low 4.2-5.4 [facility] Comment on above: Performed By: #### L 300.3900, L300.4310 #### [facility] [address] [place], [address] RDW SD 58.4 fl High 35.1-43.9 [facility] Comment on above: Performed By: #### L 300.3900, L300.4310 #### [facility] [address] [place], [address] WBC (Bld) [#/Vol] 5.2 10*3/uL Normal 4.4-11.0 [facility] Comment on above: Performed By: #### L 300.3900, L300.4310 #### [facility] [address] [place], [address] Sodium Levelon 02-22-2024 Sodium [Moles/Vol] 123 mmol/L Low 136-145 [facility] Comment on above: Performed By: #### L 500.3400, L501.9100, L500.2500, L501.2450, L501.5200, L100.0100, L501.4020 #### [facility] [address] [place], [address] Sodium [Moles/Vol] 124 mmol/L Low 136-145 [facility] Comment on above: Performed By: #### L 500.3400, L501.9100, L500.2500, L501.2450, L501.5200, L100.0100, L501.4020 #### [facility] [address] [place], [address] Sodium [Moles/Vol] 122 mmol/L Low 136-145 [facility] Comment on above: Performed By: #### L 500.3400, L501.9100, L500.2500, L501.2450, L501.5200, L100.0100, L501.4020 #### [facility] [address] [place], [address] Basic Metabolic Profile (BMP )on 02-21-2024 BUN/CRE 9.7 RATIO Low 10-20 [facility] Comment on above: Performed By: #### L 500.3400, L501.9100, L500.2500, L501.2450, L501.5200, L100.0100, L501.4020 #### [facility] [address] [place], [address] CA,Total 7.1 mg/dL Low 8.5-10.1 [facility] Comment on above: Performed By: #### L 500.3400, L501.9100, L500.2500, L501.2450, L501.5200, L100.0100, L501.4020 #### [facility] [address] [place], [address] Chloride [Moles/Vol] 83 mmol/L Low 98-107 [facility] Comment on above: Performed By: #### L 500.3400, L501.9100, L500.2500, L501.2450, L501.5200, L100.0100, L501.4020 #### [facility] [address] [place], [address] CO2 [Moles/Vol] 24.0 mmol/L Normal 21.0-32.0 [facility] Comment on above: Performed By: #### L 500.3400, L501.9100, L500.2500, L501.2450, L501.5200, L100.0100, L501.4020 #### [facility] [address] [place], [address] Creatinine [Mass/Vol] 0.62 mg/dL Normal 0.55-1.02 [facility] Comment on above: Result Comment: The validity of the calculated GFR GFRAA in patients over 70 years has not been determined. Clinical correlation is essential. Performed By: #### L 500.3400, L501.9100, L500.2500, L501.2450, L501.5200, L100.0100, L501.4020 #### [facility] [address] [place], [address] ECRCL 105.43 ml/min Normal [facility] Comment on above: Performed By: #### L 500.3400, L501.9100, L500.2500, L501.2450, L501.5200, L100.0100, L501.4020 #### [facility] [address] [place], [place], [facility] EST GFR - AA 129 mL/min Normal >60 [facility] Comment on above: Result Comment: Afri can English GFR Calc Performed By: #### L 500.3400, L501.9100, L500.2500, L501.2450, L501.5200, L100.0100, L501.4020 #### [facility] [address] [place], [place], [facility] GAP 9 Normal 5-15 [facility] Comment on above: Performed By: #### L 500.3400, L501.9100, L500.2500, L501.2450, L501.5200, L100.0100, L501.4020 #### [facility] [address] [place] [address] GFR/1.73 sq M.predicted among non-blacks MDRD (S/P/Bld) [Vol rate/Area] 107 mL/min/{1.73_m2} Normal >60 [facility] Comment on above: Result Comment: Non- GFR Calc Performed By: #### L 500.3400, L501.9100, L500.2500, L501.2450, L501.5200, L100.0100, L501.4020 #### [facility] [address] [place], [address] Glucose [Mass/Vol] 72 mg/dL Low 74-106 [facility] Comment on above: Performed By: #### L 500.3400, L501.9100, L500.2500, L501.2450, L501.5200, L100.0100, L501.4020 #### [facility] [address] [place], [address] Potassium [Moles/Vol] 3.9 mmol/L Normal 3.5-5.1 [facility] Comment on above: Performed By: #### L 500.3400, L501.9100, L500.2500, L501.2450, L501.5200, L100.0100, L501.4020 #### [facility] [address] [place], [address] Sodium [Moles/Vol] 116 mmol/L Invalid Interpretation Code 136-145 [facility] Comment on above: Result Comment: Crit ical Result(s) Called at: 05:02:22 02/21/2024 by: Whitney George [email or web address]. Results read back by same. Performed By: #### L 500.3400, L501.9100, L500.2500, L501.2450, L501.5200, L100.0100, L501.4020 #### [facility] [address] [place], [address] Urea nitrogen [Mass/Vol] 6 mg/dL Low 7-18 [facility] Comment on above: Performed By: #### L 500.3400, L501.9100, L500.2500, L501.2450, L501.5200, L100.0100, L501.4020 #### [facility] [address] [place], [address] BUN/CRE 12.6 RATIO Normal 10-20 [facility] Comment on above: Performed By: #### L 300.3900, L300.4310 #### [facility] [address] [place], [address] CA,Total 6.2 mg/dL Invalid Interpretation Code 8.5-10.1 [facility] Comment on above: Result Comment: Crit ical Result(s) Called at: 01:08:27 02/21/2024 by: Whitney George [email or web address]. Results read back by same. Performed By: #### L 300.3900, L300.4310 #### [facility] [address] [place], [address] Chloride [Moles/Vol] 90 mmol/L Low 98-107 [facility] Comment on above: Performed By: #### L 300.3900, L300.4310 #### [facility] [address] [place], [address] CO2 [Moles/Vol] 22.0 mmol/L Normal 21.0-32.0 [facility] Comment on above: Performed By: #### L 300.3900, L300.4310 #### [facility] [address] [place], [address] Creatinine [Mass/Vol] 0.56 mg/dL Normal 0.55-1.02 [facility] Comment on above: Result Comment: The validity of the calculated GFR GFRAA in patients over 70 years has not been determined. Clinical correlation is essential. Performed By: #### L 300.3900, L300.4310 #### [facility] [address] [place], [address] ECRCL 116.22 ml/min Normal [facility] Comment on above: Performed By: #### L 300.3900, L300.4310 #### [facility] [address] [place], [address] EST GFR - AA 145 mL/min Normal >60 [facility] Comment on above: Result Comment: Afri can English GFR Calc Performed By: #### L 300.3900, L300.4310 #### [facility] [address] [place], [address] GAP 9 Normal 5-15 [facility] Comment on above: Performed By: #### L 300.3900, L300.4310 #### [facility] [address] [place], [address] GFR/1.73 sq M.predicted among non-blacks MDRD (S/P/Bld) [Vol rate/Area] 120 mL/min/{1.73_m2} Normal >60 [facility] Comment on above: Result Comment: Non- GFR Calc Performed By: #### L 300.3900, L300.4310 #### [facility] [address] [place], [address] Glucose [Mass/Vol] 78 mg/dL Normal 74-106 [facility] Comment on above: Performed By: #### L 300.3900, L300.4310 #### [facility] [address] [place], [address] Potassium [Moles/Vol] 3.8 mmol/L Normal 3.5-5.1 [facility] Comment on above: Performed By: #### L 300.3900, L300.4310 #### [facility] [address] [place], [address] Sodium [Moles/Vol] 121 mmol/L Low 136-145 [facility] Comment on above: Performed By: #### L 300.3900, L300.4310 #### [facility] [address] [place], [address] Urea nitrogen [Mass/Vol] 7 mg/dL Normal 7-18 [facility] Comment on above: Performed By: #### L 300.3900, L300.4310 #### [facility] [address] [place], [address] CBC W/Diff, Automatedon 07-2 Absolute Lymph 0.82 X10 3/uL Low 0.83-4.51 [facility] Comment on above: Performed By: #### L 500.3400, L501.9100, L500.2500, L501.2450, L501.5200, L100.0100, L501.4020 #### [facility] [address] [place], [address] Absolute Neut 4.5 X10 3/uL Normal 2.0-7.7 [facility] Comment on above: Performed By: #### L 500.3400, L501.9100, L500.2500, L501.2450, L501.5200, L100.0100, L501.4020 #### [facility] [address] [place], [address] Basophils/100 WBC (Bld) 0.3 % Normal 0-1 [facility] Comment on above: Performed By: #### L 500.3400, L501.9100, L500.2500, L501.2450, L501.5200, L100.0100, L501.4020 #### [facility] [address] [place], [address] Eosinophils/100 WBC (Bld) 1.0 % Normal 0-5 [facility] Comment on above: Performed By: #### L 500.3400, L501.9100, L500.2500, L501.2450, L501.5200, L100.0100, L501.4020 #### [facility] [address] [place], [address] Erythrocyte distribution width (RBC) [Ratio] 16.2 % High 11.6-14.6 [facility] Comment on above: Performed By: #### L 500.3400, L501.9100, L500.2500, L501.2450, L501.5200, L100.0100, L501.4020 #### [facility] [address] [place], [address] Hematocrit (Bld) [Volume fraction] 31.2 % Low 37-47 [facility] Comment on above: Performed By: #### L 500.3400, L501.9100, L500.2500, L501.2450, L501.5200, L100.0100, L501.4020 #### [facility] [address] [place], [address] Hemoglobin (Bld) [Mass/Vol] 11.1 g/dL Low 12.0-15.0 [facility] Comment on above: Performed By: #### L 500.3400, L501.9100, L500.2500, L501.2450, L501.5200, L100.0100, L501.4020 #### [facility] [address] [facility] [place], [address] IG% 0.800 Normal 0.0-0.9 [facility] Comment on above: Result Comment: IG% - Immature Granulocytes (promyelocytes, myelocytes and metamyelocytes) > 1% indicates that a LEFT SHIFT is Present. Performed By: #### L 500.3400, L501.9100, L500.2500, L501.2450, L501.5200, L100.0100, L501.4020 #### [facility] [address] [place], [address] Lymphocytes/100 WBC (Bld) 13.6 % Low 19-41 [facility] Comment on above: Performed By: #### L 500.3400, L501.9100, L500.2500, L501.2450, L501.5200, L100.0100, L501.4020 #### [facility] [address] [place], [address] MCH (RBC) [Entitic mass] 32.4 pg High 27.0-32.0 [facility] Comment on above: Performed By: #### L 500.3400, L501.9100, L500.2500, L501.2450, L501.5200, L100.0100, L501.4020 #### [facility] [address] [place], [address] MCHC (RBC) [Mass/Vol] 35.6 g/dL Normal 32-36 [facility] Comment on above: Performed By: #### L 500.3400, L501.9100, L500.2500, L501.2450, L501.5200, L100.0100, L501.4020 #### [facility] [address] [place], [address] MCV (RBC) [Entitic vol] 91.0 fL Normal 81-99 [facility] Comment on above: Performed By: #### L 500.3400, L501.9100, L500.2500, L501.2450, L501.5200, L100.0100, L501.4020 #### [facility] [address] [place], [address] Monocytes/100 WBC (Bld) 10.3 % High 0-10 [facility] Comment on above: Performed By: #### L 500.3400, L501.9100, L500.2500, L501.2450, L501.5200, L100.0100, L501.4020 #### [facility] [address] [place], [address] Neutrophils/100 WBC (Bld) 74.0 % High 47-70 [facility] Comment on above: Performed By: #### L 500.3400, L501.9100, L500.2500, L501.2450, L501.5200, L100.0100, L501.4020 #### [facility] [address] [place], [address] Nucleated RBC (Bld) [#/Vol] 0 10*3/uL Normal 0-5 [facility] Comment on above: Performed By: #### L 500.3400, L501.9100, L500.2500, L501.2450, L501.5200, L100.0100, L501.4020 #### [facility] [address] [place], [address] Platelet mean volume (Bld) [Entitic vol] 9.4 fL Normal 6.2-12.0 [facility] Comment on above: Performed By: #### L 500.3400, L501.9100, L500.2500, L501.2450, L501.5200, L100.0100, L501.4020 #### [facility] [address] [place], [address] Platelets (Bld) [#/Vol] 196 10*3/uL Normal 150-450 [facility] Comment on above: Performed By: #### L 500.3400, L501.9100, L500.2500, L501.2450, L501.5200, L100.0100, L501.4020 #### [facility] [address] [place], [address] RBC (Bld) [#/Vol] 3.43 10*6/uL Low 4.2-5.4 [facility] Comment on above: Performed By: #### L 500.3400, L501.9100, L500.2500, L501.2450, L501.5200, L100.0100, L501.4020 #### [facility] [address] [place], [address] RDW SD 53.9 fl High 35.1-43.9 [facility] Comment on above: Performed By: #### L 500.3400, L501.9100, L500.2500, L501.2450, L501.5200, L100.0100, L501.4020 #### [facility] [address] [place], [address] WBC (Bld) [#/Vol] 6.0 10*3/uL Normal 4.4-11.0 [facility] Comment on above: Performed By: #### L 500.3400, L501.9100, L500.2500, L501.2450, L501.5200, L100.0100, L501.4020 #### [facility] [address] [place], [address] Magnesiumon 02-21-2024 Magnesium [Mass/Vol] 2.5 mg/dL Normal 1.6-2.6 [facility] Comment on above: Performed By: #### L 500.3400, L501.9100, L500.2500, L501.2450, L501.5200, L100.0100, L501.4020 #### [facility] [address] [place], [address] Phosphoruson 02-21-2024 Phosphate [Mass/Vol] 3.4 mg/dL Normal 2.5-4.9 [facility] Comment on above: Performed By: #### L 500.3400, L501.9100, L500.2500, L501.2450, L501.5200, L100.0100, L501.4020 #### [facility] [address] [place], [address] Sodium Levelon 02-21-2024 Sodium [Moles/Vol] 121 mmol/L Low 136-145 [facility] Comment on above: Performed By: #### L 500.3400, L501.9100, L500.2500, L501.2450, L501.5200, L100.0100, L501.4020 #### [facility] [address] [place], [address] Sodium [Moles/Vol] 122 mmol/L Low 136-145 [facility] Comment on above: Performed By: #### L 500.3400, L501.9100, L500.2500, L501.2450, L501.5200, L100.0100, L501.4020 #### [facility] [address] [place], [address] Sodium [Moles/Vol] 120 mmol/L Low 136-145 [facility] Comment on above: Performed By: #### L 500.3400, L501.9100, L500.2500, L501.2450, L501.5200, L100.0100, L501.4020 #### [facility] [address] [place], [address] Sodium [Moles/Vol] 119 mmol/L Invalid Interpretation Code 136-145 [facility] Comment on above: Result Comment: Crit ical Result(s) Called at: 09:48:11 02/21/2024 by: PHILLIP PLATA to Liliam Holcomb. Results read back by same. Performed By: #### L 500.3400, L501.9100, L500.2500, L501.2450, L501.5200, L100.0100, L501.4020 #### [facility] [address] [place], [address] Alcohol, Blood (Medical)-Ser umon 02-20-2024 SERUM ETOH 6.0 mg/dL Normal [facility] Comment on above: Result Comment: The serum:whole blood ethanol ratio is approximately 1.14 and varies slightly with hematocrit. Medical Alcohol reference interval and critical value in non-tolerant individuals; 50 - 100 Impairment 100 Intoxication 100 - 250 Severe Poisoning 250 - 400 Deep/possible fatal coma Performed By: #### L 300.3900, L300.4310 #### [facility] [address] [place], [address] Basic Metabolic Profile (BMP )on 02-20-2024 BUN/CRE 11.5 RATIO Normal 10-20 [facility] Comment on above: Performed By: #### L 500.3400, L501.9100, L500.2500, L501.2450, L501.5200, L100.0100, L501.4020 #### [facility] [address] [place], [address] CA,Total 7.3 mg/dL Low 8.5-10.1 [facility] Comment on above: Performed By: #### L 500.3400, L501.9100, L500.2500, L501.2450, L501.5200, L100.0100, L501.4020 #### [facility] [address] [place], [address] Chloride [Moles/Vol] 83 mmol/L Low 98-107 [facility] Comment on above: Performed By: #### L 500.3400, L501.9100, L500.2500, L501.2450, L501.5200, L100.0100, L501.4020 #### [facility] [address] [place], [address] CO2 [Moles/Vol] 26.0 mmol/L Normal 21.0-32.0 [facility] Comment on above: Performed By: #### L 500.3400, L501.9100, L500.2500, L501.2450, L501.5200, L100.0100, L501.4020 #### [facility] [address] [place], [address] Creatinine [Mass/Vol] 0.70 mg/dL Normal 0.55-1.02 [facility] Comment on above: Result Comment: The validity of the calculated GFR GFRAA in patients over 70 years has not been determined. Clinical correlation is essential. Performed By: #### L 500.3400, L501.9100, L500.2500, L501.2450, L501.5200, L100.0100, L501.4020 #### [facility] [address] [place], [address] ECRCL 92.98 ml/min Normal [facility] Comment on above: Performed By: #### L 500.3400, L501.9100, L500.2500, L501.2450, L501.5200, L100.0100, L501.4020 #### [facility] [address] [place], [place], [phone] (777 EST GFR - AA 112 mL/min Normal >60 [facility] Comment on above: Result Comment: Afri can English GFR Calc Performed By: #### L 500.3400, L501.9100, L500.2500, L501.2450, L501.5200, L100.0100, L501.4020 #### [facility] [address] [place], [place], [id number] GAP 9 Normal 5-15 [facility] Comment on above: Performed By: #### L 500.3400, L501.9100, L500.2500, L501.2450, L501.5200, L100.0100, L501.4020 #### [facility] [address] [place], [place], [id number] (164 GFR/1.73 sq M.predicted among non-blacks MDRD (S/P/Bld) [Vol rate/Area] 93 mL/min/{1.73_m2} Normal >60 [facility] Comment on above: Result Comment: Non- GFR Calc Performed By: #### L 500.3400, L501.9100, L500.2500, L501.2450, L501.5200, L100.0100, L501.4020 #### [facility] [address] [place], [address] Glucose [Mass/Vol] 90 mg/dL Normal 74-106 [facility] Comment on above: Performed By: #### L 500.3400, L501.9100, L500.2500, L501.2450, L501.5200, L100.0100, L501.4020 #### [facility] [address] [place], [address] Potassium [Moles/Vol] 3.3 mmol/L Low 3.5-5.1 [facility] Comment on above: Performed By: #### L 500.3400, L501.9100, L500.2500, L501.2450, L501.5200, L100.0100, L501.4020 #### [facility] [address] [place], [address] Sodium [Moles/Vol] 118 mmol/L Invalid Interpretation Code 136-145 [facility] Comment on above: Result Comment: Crit ical Result(s) Called at: 20:49:09 02/20/2024 by: PHILLIP PLATA TO ABHILASH RODRIGUEZ. Results read back by same. Performed By: #### L 500.3400, L501.9100, L500.2500, L501.2450, L501.5200, L100.0100, L501.4020 #### [facility] [address] [place], [address] Urea nitrogen [Mass/Vol] 8 mg/dL Normal 7-18 [facility] Comment on above: Performed By: #### L 500.3400, L501.9100, L500.2500, L501.2450, L501.5200, L100.0100, L501.4020 #### [facility] [address] [place], [address] BUN/CRE 11.2 RATIO Normal 10-20 [facility] Comment on above: Performed By: #### L 500.3400, L501.9100, L500.2500, L501.2450, L501.5200, L100.0100, L501.4020 #### [facility] [address] [place], [address] CA,Total 8.0 mg/dL Low 8.5-10.1 [facility] Comment on above: Performed By: #### L 500.3400, L501.9100, L500.2500, L501.2450, L501.5200, L100.0100, L501.4020 #### [facility] [address] [place], [address] Chloride [Moles/Vol] 78 mmol/L Low 98-107 [facility] Comment on above: Performed By: #### L 500.3400, L501.9100, L500.2500, L501.2450, L501.5200, L100.0100, L501.4020 #### [facility] [address] [place], [address] CO2 [Moles/Vol] 27.0 mmol/L Normal 21.0-32.0 [facility] Comment on above: Performed By: #### L 500.3400, L501.9100, L500.2500, L501.2450, L501.5200, L100.0100, L501.4020 #### [facility] [address] [place], [address] Creatinine [Mass/Vol] 0.72 mg/dL Normal 0.55-1.02 [facility] Comment on above: Result Comment: The validity of the calculated GFR GFRAA in patients over 70 years has not been determined. Clinical correlation is essential. Performed By: #### L 500.3400, L501.9100, L500.2500, L501.2450, L501.5200, L100.0100, L501.4020 #### [facility] [address] [place], [address] ECRCL 90.40 ml/min Normal [facility] Comment on above: Performed By: #### L 500.3400, L501.9100, L500.2500, L501.2450, L501.5200, L100.0100, L501.4020 #### [facility] [address] [place], [place], [phone] (801) EST GFR - AA 109 mL/min Normal >60 [facility] Comment on above: Result Comment: Afri can English GFR Calc Performed By: #### L 500.3400, L501.9100, L500.2500, L501.2450, L501.5200, L100.0100, L501.4020 #### [facility] [address] [place], [address] GAP 11 Normal 5-15 [facility] Comment on above: Performed By: #### L 500.3400, L501.9100, L500.2500, L501.2450, L501.5200, L100.0100, L501.4020 #### [facility] [address] [place], [place], [phone] GFR/1.73 sq M.predicted among non-blacks MDRD (S/P/Bld) [Vol rate/Area] 90 mL/min/{1.73_m2} Normal >60 [facility] Comment on above: Result Comment: Non- GFR Calc Performed By: #### L 500.3400, L501.9100, L500.2500, L501.2450, L501.5200, L100.0100, L501.4020 #### [facility] [address] [place], [place], [id number] Glucose [Mass/Vol] 97 mg/dL Normal 74-106 [facility] Comment on above: Performed By: #### L 500.3400, L501.9100, L500.2500, L501.2450, L501.5200, L100.0100, L501.4020 #### [facility] [address] [place], [address] Potassium [Moles/Vol] 3.4 mmol/L Low 3.5-5.1 [facility] Comment on above: Performed By: #### L 500.3400, L501.9100, L500.2500, L501.2450, L501.5200, L100.0100, L501.4020 #### [facility] [address] [place], [address] Sodium [Moles/Vol] 116 mmol/L Invalid Interpretation Code 136-145 [facility] Comment on above: Result Comment: Crit ical Result(s) Called at: 17:00:42 02/20/2024 by: PHILLIP Steiner. Results read back by same. Performed By: #### L 500.3400, L501.9100, L500.2500, L501.2450, L501.5200, L100.0100, L501.4020 #### [facility] [address] [place], [address] Urea nitrogen [Mass/Vol] 8 mg/dL Normal 7-18 [facility] Comment on above: Performed By: #### L 500.3400, L501.9100, L500.2500, L501.2450, L501.5200, L100.0100, L501.4020 #### [facility] [address] [place], [address] BUN/CRE 9.8 RATIO Low 10-20 [facility] Comment on above: Performed By: #### L 500.3400, L501.9100, L500.2500, L501.2450, L501.5200, L100.0100, L501.4020 #### [facility] [address] [place], [address] CA,Total 7.8 mg/dL Low 8.5-10.1 [facility] Comment on above: Performed By: #### L 500.3400, L501.9100, L500.2500, L501.2450, L501.5200, L100.0100, L501.4020 #### [facility] [address] [place], [address] Chloride [Moles/Vol] 79 mmol/L Low 98-107 [facility] Comment on above: Performed By: #### L 500.3400, L501.9100, L500.2500, L501.2450, L501.5200, L100.0100, L501.4020 #### [facility] [address] [place], [address] CO2 [Moles/Vol] 27.0 mmol/L Normal 21.0-32.0 [facility] Comment on above: Performed By: #### L 500.3400, L501.9100, L500.2500, L501.2450, L501.5200, L100.0100, L501.4020 #### [facility] [address] [place], [address] Creatinine [Mass/Vol] 0.72 mg/dL Normal 0.55-1.02 [facility] Comment on above: Result Comment: The validity of the calculated GFR GFRAA in patients over 70 years has not been determined. Clinical correlation is essential. Performed By: #### L 500.3400, L501.9100, L500.2500, L501.2450, L501.5200, L100.0100, L501.4020 #### [facility] [address] [place], [address] ECRCL 90.40 ml/min Normal [facility] Comment on above: Performed By: #### L 500.3400, L501.9100, L500.2500, L501.2450, L501.5200, L100.0100, L501.4020 #### [facility] [address] [place], [address] EST GFR - AA 109 mL/min Normal >60 [facility] Comment on above: Result Comment: Afri can English GFR Calc Performed By: #### L 500.3400, L501.9100, L500.2500, L501.2450, L501.5200, L100.0100, L501.4020 #### [facility] [address] [place], [address] GAP 11 Normal 5-15 [facility] Comment on above: Performed By: #### L 500.3400, L501.9100, L500.2500, L501.2450, L501.5200, L100.0100, L501.4020 #### [facility] [address] [place], [address] GFR/1.73 sq M.predicted among non-blacks MDRD (S/P/Bld) [Vol rate/Area] 90 mL/min/{1.73_m2} Normal >60 [facility] Comment on above: Result Comment: Non- GFR Calc Performed By: #### L 500.3400, L501.9100, L500.2500, L501.2450, L501.5200, L100.0100, L501.4020 #### [facility] [address] [place], [address] Glucose [Mass/Vol] 94 mg/dL Normal 74-106 [facility] Comment on above: Performed By: #### L 500.3400, L501.9100, L500.2500, L501.2450, L501.5200, L100.0100, L501.4020 #### [facility] [address] [place], [address] Potassium [Moles/Vol] 3.3 mmol/L Low 3.5-5.1 [facility] Comment on above: Performed By: #### L 500.3400, L501.9100, L500.2500, L501.2450, L501.5200, L100.0100, L501.4020 #### [facility] [address] [place], [address] Sodium [Moles/Vol] 117 mmol/L Invalid Interpretation Code 136-145 [facility] Comment on above: Result Comment: Crit ical Result(s) Called at: 14:56:58 02/20/2024 by: Phillip Plata to Jessica Holcomb. Results read back by same. Performed By: #### L 500.3400, L501.9100, L500.2500, L501.2450, L501.5200, L100.0100, L501.4020 #### [facility] [address] [place], [address] Urea nitrogen [Mass/Vol] 7 mg/dL Normal 7-18 [facility] Comment on above: Performed By: #### L 500.3400, L501.9100, L500.2500, L501.2450, L501.5200, L100.0100, L501.4020 #### [facility] [address] [place], [address] BUN/CRE 11.7 RATIO Normal 10-20 [facility] Comment on above: Performed By: #### L 500.3400, L501.9100, L500.2500, L501.2450, L501.5200, L100.0100, L501.4020 #### [facility] [address] [place], [address] CA,Total 8.0 mg/dL Low 8.5-10.1 [facility] Comment on above: Performed By: #### L 500.3400, L501.9100, L500.2500, L501.2450, L501.5200, L100.0100, L501.4020 #### [facility] [address] [place], [address] Chloride [Moles/Vol] 76 mmol/L Low 98-107 [facility] Comment on above: Performed By: #### L 500.3400, L501.9100, L500.2500, L501.2450, L501.5200, L100.0100, L501.4020 #### [facility] [address] [place], [address] CO2 [Moles/Vol] 27.0 mmol/L Normal 21.0-32.0 [facility] Comment on above: Performed By: #### L 500.3400, L501.9100, L500.2500, L501.2450, L501.5200, L100.0100, L501.4020 #### [facility] [address] [place], [address] Creatinine [Mass/Vol] 0.69 mg/dL Normal 0.55-1.02 [facility] Comment on above: Result Comment: The validity of the calculated GFR GFRAA in patients over 70 years has not been determined. Clinical correlation is essential. Performed By: #### L 500.3400, L501.9100, L500.2500, L501.2450, L501.5200, L100.0100, L501.4020 #### [facility] [address] [place], [address] ECRCL 94.33 ml/min Normal [facility] Comment on above: Performed By: #### L 500.3400, L501.9100, L500.2500, L501.2450, L501.5200, L100.0100, L501.4020 #### [facility] [address] [place], [address] EST GFR - AA 114 mL/min Normal >60 [facility] Comment on above: Result Comment: Afri can English GFR Calc Performed By: #### L 500.3400, L501.9100, L500.2500, L501.2450, L501.5200, L100.0100, L501.4020 #### [facility] [address] [place], [address] GAP 11 Normal 5-15 [facility] Comment on above: Performed By: #### L 500.3400, L501.9100, L500.2500, L501.2450, L501.5200, L100.0100, L501.4020 #### [facility] [address] [place], [address] GFR/1.73 sq M.predicted among non-blacks MDRD (S/P/Bld) [Vol rate/Area] 94 mL/min/{1.73_m2} Normal >60 [facility] Comment on above: Result Comment: Non- GFR Calc Performed By: #### L 500.3400, L501.9100, L500.2500, L501.2450, L501.5200, L100.0100, L501.4020 #### [facility] [address] [place], [address] Glucose [Mass/Vol] 104 mg/dL Normal 74-106 [facility] Comment on above: Result Comment: Fast ing Glucose result from 100 to 125 mg/dL suggests IMPAIRED HOMEOSTASIS per A.D.A. criteria. Performed By: #### L 500.3400, L501.9100, L500.2500, L501.2450, L501.5200, L100.0100, L501.4020 #### [facility] [address] [place], [address] Potassium [Moles/Vol] 3.2 mmol/L Low 3.5-5.1 [facility] Comment on above: Performed By: #### L 500.3400, L501.9100, L500.2500, L501.2450, L501.5200, L100.0100, L501.4020 #### [facility] [address] [place], [address] Sodium [Moles/Vol] 114 mmol/L Invalid Interpretation Code 136-145 [facility] Comment on above: Result Comment: Crit ical Result(s) Called at: 12:20:12 02/20/2024 by: Ora Angulo to Walter. Results read back by same. Performed By: #### L 500.3400, L501.9100, L500.2500, L501.2450, L501.5200, L100.0100, L501.4020 #### [facility] [address] [place], [address] Urea nitrogen [Mass/Vol] 8 mg/dL Normal 7-18 [facility] Comment on above: Performed By: #### L 500.3400, L501.9100, L500.2500, L501.2450, L501.5200, L100.0100, L501.4020 #### [facility] [address] [place], [address] BUN/CRE 13.3 RATIO Normal 10-20 [facility] Comment on above: Performed By: #### L 500.3400, L501.9100, L500.2500, L501.2450, L501.5200, L100.0100, L501.4020 #### [facility] [address] [place], [address] CA,Total 8.0 mg/dL Low 8.5-10.1 [facility] Comment on above: Performed By: #### L 500.3400, L501.9100, L500.2500, L501.2450, L501.5200, L100.0100, L501.4020 #### [facility] [address] [place], [address] Chloride [Moles/Vol] 75 mmol/L Low 98-107 [facility] Comment on above: Performed By: #### L 500.3400, L501.9100, L500.2500, L501.2450, L501.5200, L100.0100, L501.4020 #### [facility] [address] [place], [address] CO2 [Moles/Vol] 24.0 mmol/L Normal 21.0-32.0 [facility] Comment on above: Performed By: #### L 500.3400, L501.9100, L500.2500, L501.2450, L501.5200, L100.0100, L501.4020 #### [facility] [address] [place], [address] Creatinine [Mass/Vol] 0.60 mg/dL Normal 0.55-1.02 [facility] Comment on above: Result Comment: The validity of the calculated GFR GFRAA in patients over 70 years has not been determined. Clinical correlation is essential. Performed By: #### L 500.3400, L501.9100, L500.2500, L501.2450, L501.5200, L100.0100, L501.4020 #### [facility] [address] [place], [address] ECRCL 108.48 ml/min Normal [facility] Comment on above: Performed By: #### L 500.3400, L501.9100, L500.2500, L501.2450, L501.5200, L100.0100, L501.4020 #### [facility] [address] [place], [address] EST GFR - AA 133 mL/min Normal >60 [facility] Comment on above: Result Comment: Afri can English GFR Calc Performed By: #### L 500.3400, L501.9100, L500.2500, L501.2450, L501.5200, L100.0100, L501.4020 #### [facility] [address] [place], [address] GAP 12 Normal 5-15 [facility] Comment on above: Performed By: #### L 500.3400, L501.9100, L500.2500, L501.2450, L501.5200, L100.0100, L501.4020 #### [facility] [address] [place], [address] GFR/1.73 sq M.predicted among non-blacks MDRD (S/P/Bld) [Vol rate/Area] 110 mL/min/{1.73_m2} Normal >60 [facility] Comment on above: Result Comment: Non- GFR Calc Performed By: #### L 500.3400, L501.9100, L500.2500, L501.2450, L501.5200, L100.0100, L501.4020 #### [facility] [address] [place], [address] Glucose [Mass/Vol] 110 mg/dL High 74-106 [facility] Comment on above: Result Comment: Fast ing Glucose result from 100 to 125 mg/dL suggests IMPAIRED HOMEOSTASIS per A.D.A. criteria. Performed By: #### L 500.3400, L501.9100, L500.2500, L501.2450, L501.5200, L100.0100, L501.4020 #### [facility] [address] [place], [address] Potassium [Moles/Vol] 3.4 mmol/L Low 3.5-5.1 [facility] Comment on above: Performed By: #### L 500.3400, L501.9100, L500.2500, L501.2450, L501.5200, L100.0100, L501.4020 #### [facility] [address] [place], [address] Sodium [Moles/Vol] 111 mmol/L Invalid Interpretation Code 136-145 [facility] Comment on above: Result Comment: Crit ical Result(s) Called at: 08:47:04 02/20/2024 by: Ora Gaytan. Results read back by same. Performed By: #### L 500.3400, L501.9100, L500.2500, L501.2450, L501.5200, L100.0100, L501.4020 #### [facility] [address] [place], [address] Urea nitrogen [Mass/Vol] 8 mg/dL Normal 7-18 [facility] Comment on above: Performed By: #### L 500.3400, L501.9100, L500.2500, L501.2450, L501.5200, L100.0100, L501.4020 #### [facility] [address] [place], [address] BUN/CRE 11.5 RATIO Normal 10-20 [facility] Comment on above: Performed By: #### L 500.3400, L501.9100, L500.2500, L501.2450, L501.5200, L100.0100, L501.4020 #### [facility] [address] [place], [address] CA,Total 7.9 mg/dL Low 8.5-10.1 [facility] Comment on above: Performed By: #### L 500.3400, L501.9100, L500.2500, L501.2450, L501.5200, L100.0100, L501.4020 #### [facility] [address] [place], [address] Chloride [Moles/Vol] 74 mmol/L Invalid Interpretation Code 98-107 [facility] Comment on above: Result Comment: Crit ical Result(s) Called at: 04:38:34 02/20/2024 by: Whitney George. Results read back by same. Performed By: #### L 500.3400, L501.9100, L500.2500, L501.2450, L501.5200, L100.0100, L501.4020 #### [facility] [address] [place], [address] CO2 [Moles/Vol] 26.0 mmol/L Normal 21.0-32.0 [facility] Comment on above: Performed By: #### L 500.3400, L501.9100, L500.2500, L501.2450, L501.5200, L100.0100, L501.4020 #### [facility] [address] [place], [address] Creatinine [Mass/Vol] 0.70 mg/dL Normal 0.55-1.02 [facility] Comment on above: Result Comment: The validity of the calculated GFR GFRAA in patients over 70 years has not been determined. Clinical correlation is essential. Performed By: #### L 500.3400, L501.9100, L500.2500, L501.2450, L501.5200, L100.0100, L501.4020 #### [facility] [address] [place], [address] ECRCL 92.98 ml/min Normal [facility] Comment on above: Performed By: #### L 500.3400, L501.9100, L500.2500, L501.2450, L501.5200, L100.0100, L501.4020 #### [facility] [address] [place], [address] EST GFR - AA 112 mL/min Normal >60 [facility] Comment on above: Result Comment: Afri can English GFR Calc Performed By: #### L 500.3400, L501.9100, L500.2500, L501.2450, L501.5200, L100.0100, L501.4020 #### [facility] [address] [place], [address] GAP 13 Normal 5-15 [facility] Comment on above: Performed By: #### L 500.3400, L501.9100, L500.2500, L501.2450, L501.5200, L100.0100, L501.4020 #### [facility] [address] [place], [address] GFR/1.73 sq M.predicted among non-blacks MDRD (S/P/Bld) [Vol rate/Area] 93 mL/min/{1.73_m2} Normal >60 [facility] Comment on above: Result Comment: Non- GFR Calc Performed By: #### L 500.3400, L501.9100, L500.2500, L501.2450, L501.5200, L100.0100, L501.4020 #### [facility] [address] [place], [address] Glucose [Mass/Vol] 110 mg/dL High 74-106 [facility] Comment on above: Result Comment: Fast ing Glucose result from 100 to 125 mg/dL suggests IMPAIRED HOMEOSTASIS per A.D.A. criteria. Performed By: #### L 500.3400, L501.9100, L500.2500, L501.2450, L501.5200, L100.0100, L501.4020 #### [facility] [address] [place], [address] Potassium [Moles/Vol] 3.3 mmol/L Low 3.5-5.1 [facility] Comment on above: Performed By: #### L 500.3400, L501.9100, L500.2500, L501.2450, L501.5200, L100.0100, L501.4020 #### [facility] [address] [place], [address] Sodium [Moles/Vol] 113 mmol/L Invalid Interpretation Code 136-145 [facility] Comment on above: Result Comment: Crit ical Result(s) Called at: 04:36:49 02/20/2024 by: Whitney VERNON. Results read back by same. Performed By: #### L 500.3400, L501.9100, L500.2500, L501.2450, L501.5200, L100.0100, L501.4020 #### [facility] [address] [place], [address] Urea nitrogen [Mass/Vol] 8 mg/dL Normal 7-18 [facility] Comment on above: Performed By: #### L 500.3400, L501.9100, L500.2500, L501.2450, L501.5200, L100.0100, L501.4020 #### [facility] [address] [place], [address] BUN/CRE 10.5 RATIO Normal 10-20 [facility] Comment on above: Performed By: #### L 500.3400, L501.9100, L500.2500, L501.2450, L501.5200, L100.0100, L501.4020 #### [facility] [address] [place], [address] CA,Total 8.4 mg/dL Low 8.5-10.1 [facility] Comment on above: Performed By: #### L 500.3400, L501.9100, L500.2500, L501.2450, L501.5200, L100.0100, L501.4020 #### [facility] [address] [place], [address] Chloride [Moles/Vol] 70 mmol/L Invalid Interpretation Code 98-107 [facility] Comment on above: Result Comment: Crit ical Result(s) Called at: 00:41:36 02/20/2024 by: Whitney George. Results read back by same. Performed By: #### L 500.3400, L501.9100, L500.2500, L501.2450, L501.5200, L100.0100, L501.4020 #### [facility] [address] [place], [address] CO2 [Moles/Vol] 24.0 mmol/L Normal 21.0-32.0 [facility] Comment on above: Performed By: #### L 500.3400, L501.9100, L500.2500, L501.2450, L501.5200, L100.0100, L501.4020 #### [facility] [address] [place], [address] Creatinine [Mass/Vol] 0.67 mg/dL Normal 0.55-1.02 [facility] Comment on above: Result Comment: The validity of the calculated GFR GFRAA in patients over 70 years has not been determined. Clinical correlation is essential. Performed By: #### L 500.3400, L501.9100, L500.2500, L501.2450, L501.5200, L100.0100, L501.4020 #### [facility] [address] [place], [address] ECRCL 98.88 ml/min Normal [facility] Comment on above: Performed By: #### L 500.3400, L501.9100, L500.2500, L501.2450, L501.5200, L100.0100, L501.4020 #### [facility] [address] [place], [address] EST GFR - AA 118 mL/min Normal >60 [facility] Comment on above: Result Comment: Afri can English GFR Calc Performed By: #### L 500.3400, L501.9100, L500.2500, L501.2450, L501.5200, L100.0100, L501.4020 #### [facility] [address] [place], [address] GAP 16 High 5-15 [facility] Comment on above: Performed By: #### L 500.3400, L501.9100, L500.2500, L501.2450, L501.5200, L100.0100, L501.4020 #### [facility] [address] [place], [address] GFR/1.73 sq M.predicted among non-blacks MDRD (S/P/Bld) [Vol rate/Area] 97 mL/min/{1.73_m2} Normal >60 [facility] Comment on above: Result Comment: Non- GFR Calc Performed By: #### L 500.3400, L501.9100, L500.2500, L501.2450, L501.5200, L100.0100, L501.4020 #### [facility] [address] [place], [address] Glucose [Mass/Vol] 116 mg/dL High 74-106 [facility] Comment on above: Result Comment: Fast ing Glucose result from 100 to 125 mg/dL suggests IMPAIRED HOMEOSTASIS per A.D.A. criteria. Performed By: #### L 500.3400, L501.9100, L500.2500, L501.2450, L501.5200, L100.0100, L501.4020 #### [facility] [address] [place], [address] Potassium [Moles/Vol] 3.1 mmol/L Low 3.5-5.1 [facility] Comment on above: Performed By: #### L 500.3400, L501.9100, L500.2500, L501.2450, L501.5200, L100.0100, L501.4020 #### [facility] [address] [place], [address] Sodium [Moles/Vol] 110 mmol/L Invalid Interpretation Code 136-145 [facility] Comment on above: Result Comment: Crit ical Result(s) Called at: 00:40:32 02/20/2024 by: Whitney Maher. Results read back by same. Performed By: #### L 500.3400, L501.9100, L500.2500, L501.2450, L501.5200, L100.0100, L501.4020 #### [facility] [address] [place], [address] Urea nitrogen [Mass/Vol] 7 mg/dL Normal 7-18 [facility] Comment on above: Performed By: #### L 500.3400, L501.9100, L500.2500, L501.2450, L501.5200, L100.0100, L501.4020 #### [facility] [address] [place], [address] CBC W/Diff, Automatedon 07-2 Absolute Lymph 0.62 X10 3/uL Low 0.83-4.51 [facility] Comment on above: Performed By: #### L 300.3900, L300.4310 #### [facility] [address] [place], [address] Absolute Neut 5.8 X10 3/uL Normal 2.0-7.7 [facility] Comment on above: Performed By: #### L 300.3900, L300.4310 #### [facility] [address] [place], [address] Basophils/100 WBC (Bld) 0.3 % Normal 0-1 [facility] Comment on above: Performed By: #### L 300.3900, L300.4310 #### [facility] [address] [place], [address] Eosinophils/100 WBC (Bld) 0.0 % Normal 0-5 [facility] Comment on above: Performed By: #### L 300.3900, L300.4310 #### [facility] [address] [place], [address] Erythrocyte distribution width (RBC) [Ratio] 15.7 % High 11.6-14.6 [facility] Comment on above: Performed By: #### L 300.3900, L300.4310 #### [facility] [address] [place], [address] Hematocrit (Bld) [Volume fraction] 35.9 % Low 37-47 [facility] Comment on above: Performed By: #### L 300.3900, L300.4310 #### [facility] [address] [place], [address] Hemoglobin (Bld) [Mass/Vol] 13.4 g/dL Normal 12.0-15.0 [facility] Comment on above: Performed By: #### L 300.3900, L300.4310 #### [facility] [address] [place], [address] IG% 1.900 High 0.0-0.9 [facility] Comment on above: Result Comment: IG% - Immature Granulocytes (promyelocytes, myelocytes and metamyelocytes) > 1% indicates that a LEFT SHIFT is Present. Performed By: #### L 300.3900, L300.4310 #### [facility] [address] [place], [address] Lymphocytes/100 WBC (Bld) 8.6 % Low 19-41 [facility] Comment on above: Performed By: #### L 300.3900, L300.4310 #### [facility] [address] [place], [address] MCH (RBC) [Entitic mass] 32.6 pg High 27.0-32.0 [facility] Comment on above: Performed By: #### L 300.3900, L300.4310 #### [facility] [address] [place], [address] MCHC (RBC) [Mass/Vol] 37.3 g/dL High 32-36 [facility] Comment on above: Performed By: #### L 300.3900, L300.4310 #### [facility] [address] [place], [address] MCV (RBC) [Entitic vol] 87.3 fL Normal 81-99 [facility] Comment on above: Performed By: #### L 300.3900, L300.4310 #### [facility] [address] [place], [address] Monocytes/100 WBC (Bld) 8.9 % Normal 0-10 [facility] Comment on above: Performed By: #### L 300.3900, L300.4310 #### [facility] [address] [place], [address] Neutrophils/100 WBC (Bld) 80.3 % High 47-70 [facility] Comment on above: Performed By: #### L 300.3900, L300.4310 #### [facility] [address] [place], [address] Nucleated RBC (Bld) [#/Vol] 0 10*3/uL Normal 0-5 [facility] Comment on above: Performed By: #### L 300.3900, L300.4310 #### [facility] [address] [place], [address] Platelet mean volume (Bld) [Entitic vol] 8.8 fL Normal 6.2-12.0 [facility] Comment on above: Performed By: #### L 300.3900, L300.4310 #### [facility] [address] [place], [address] Platelets (Bld) [#/Vol] 246 10*3/uL Normal 150-450 [facility] Comment on above: Performed By: #### L 300.3900, L300.4310 #### [facility] [address] [place], [address] RBC (Bld) [#/Vol] 4.11 10*6/uL Low 4.2-5.4 [facility] Comment on above: Performed By: #### L 300.3900, L300.4310 #### [facility] [address] [place], [address] RDW SD 50.2 fl High 35.1-43.9 [facility] Comment on above: Performed By: #### L 300.3900, L300.4310 #### [facility] [address] [place], [address] WBC (Bld) [#/Vol] 7.2 10*3/uL Normal 4.4-11.0 [facility] Comment on above: Performed By: #### L 300.3900, L300.4310 #### [facility] [address] [place], [address] CBC-Complete Blood Cnt No Di ffon 02-20-2024 Erythrocyte distribution width (RBC) [Ratio] 15.8 % High 11.6-14.6 [facility] Comment on above: Performed By: #### L 300.3900, L300.4310 #### [facility] [address] [place], [address] Hematocrit (Bld) [Volume fraction] 34.0 % Low 37-47 [facility] Comment on above: Performed By: #### L 300.3900, L300.4310 #### [facility] [address] [place], [address] Hemoglobin (Bld) [Mass/Vol] 12.4 g/dL Normal 12.0-15.0 [facility] Comment on above: Performed By: #### L 300.3900, L300.4310 #### [facility] [address] [place], [address] MCH (RBC) [Entitic mass] 32.3 pg High 27.0-32.0 [facility] Comment on above: Performed By: #### L 300.3900, L300.4310 #### [facility] [address] [place], [address] MCHC (RBC) [Mass/Vol] 36.5 g/dL High 32-36 [facility] Comment on above: Performed By: #### L 300.3900, L300.4310 #### [facility] [address] [place], [address] MCV (RBC) [Entitic vol] 88.5 fL Normal 81-99 [facility] Comment on above: Performed By: #### L 300.3900, L300.4310 #### [facility] [address] [place], [address] Platelet mean volume (Bld) [Entitic vol] 8.8 fL Normal 6.2-12.0 [facility] Comment on above: Performed By: #### L 300.3900, L300.4310 #### [facility] [address] [place], [address] Platelets (Bld) [#/Vol] 223 10*3/uL Normal 150-450 [facility] Comment on above: Performed By: #### L 300.3900, L300.4310 #### [facility] [address] [place], [address] RBC (Bld) [#/Vol] 3.84 10*6/uL Low 4.2-5.4 [facility] Comment on above: Performed By: #### L 300.3900, L300.4310 #### [facility] [address] [place], [address] RDW SD 50.0 fl High 35.1-43.9 [facility] Comment on above: Performed By: #### L 300.3900, L300.4310 #### [facility] [address] [place], [address] WBC (Bld) [#/Vol] 7.0 10*3/uL Normal 4.4-11.0 [facility] Comment on above: Performed By: #### L 300.3900, L300.4310 #### [facility] [address] [place], [address] Consultation - Nephrologyon 02-20-2024 Consultation - Nephrology [facility] Medical Records Department [address] [place] [address] Consultation - Nephrology 02/20/24 1044 MR#: [id number] Acct: [id number] Name: ROA ADAMS Rep #: [id number] : 1970 53 From: Chun Khan MD PCP: AUGUSTINA Funes Status:ADM IN Location: ICU ICU02-1 Assessment Plan Assessment/Plan (1) Acute hyponatremia: PLAN: Baseline sodium was normal in November 2023 at 134. Came in with a sodium of 110. Essentially completely asymptomatic except for some nausea. Typically this happens in slow progressive hyponatremia and so this is likely of chronic hyponatremia. We will have to correct this very slowly. Sodium was 110 around midnight. We will plan to push up the sodium to around 116 by midnight tonight. Urine sodium less than 20, urine osmolality 600. These numbers or without diuretics which she stopped several days ago. His labs are consistent with hypovolemic hyponatremia. Slowly replace IV fluids. Start normal saline at 100 cc/h. If she has massive urine output, we will give a dose of desmopressin. Discussed with ICU staff HPI Consult Data Date of Consult: 02/20/24 HPI Narrative Reason for Consultation: Hyponatremia. HPI Narrative: ORA ADAMS, is a 53 F who presents to the hospital with nausea, vomiting, generalized weakness. Nephrology on consultation in view of hyponatremia. Her primary care physician is at [facility]. Last known sodium is from November 2023 and it was 134. She did have 1 episode of hyponatremia at 126 about 11 months ago. Presented to the hospital with nausea, vomiting. Found to have a sodium of 110 on admission. She received some IV fluids, repeat sodium was 113, another repeat this morning came back at 111. She is completely asymptomatic other than some nausea. History of alcohol use, states has been trying to cut back recently. History of weight loss in the setting of medication use. Apparently she has lost about 60 pounds using the medication however it got too expensive and she stopped taking it. Weight is about the same recently. For hypertension she was on lisinopril, hydrochlorothiazide, due to weight loss her blood pressure has improved, hydrochlorothiazide was discontinued few weeks ago. Denies any urinary complaints. [facility] Medical History History of breast cancer HTN (hypertension) Hypothyroid Home Medications ???Medication ???Instructions ???Recorded ???Last Taken ???Type omeprazole 40 mg capsule,delayed 40 mg PO DAILY GERD 12/02/20 11/30/20 History release trazodone 50 mg tablet 25 - 50 mg PO QHS PRN Sleep 12/02/20 1 Week Ago History 11/25/20 levothyroxine 150 mcg tablet 150 mcg PO DAILY 02/20/24 Unknown History lisinopril 20 1 tab PO DAILY BLOOD PRESSURE 02/20/24 Unknown History mg-hydrochlorothiazide 25 mg tablet Allergy/AdvReac Type Severity Reaction Status Date / Time Penicillins Allergy Hives Verified 02/19/24 23:52 Sulfa (Sulfonamide Allergy Hives Verified 02/19/24 23:52 Antibiotics) vancomycin Allergy Hives Verified 02/19/24 23:52 Surgical History H/O mastectomy H/O: hysterectomy Social History Smoking Status: Former smoker ROS ROS Narrative Negative except above Physical Exam Narrative Alert awake oriented x 3 no obvious distress no pallor no icterus no JVD s1s2 no murmurs lungs clear abdomen soft no organomegaly no edema no cyanosis Lab / Micro Data 02/20/24 04:10 02/20/24 08:01 Labs: Laboratory Results - last 24 hr 02/20/24 00:07: WBC 7.2, RBC 4.11 L, Hgb 13.4, Hct 35.9 L, MCV 87.3, MCH 32.6 H, MCHC 37.3 H, RDW Std Deviation 50.2 H, RDW Coeff of [place] 15.7 H, Plt Count 246, MPV 8.8, Immature Gran % (Auto) 1.900 H, Neut % (Auto) 80.3 H, Lymph % (Auto) 8.6 L, [place] % (Auto) 8.9, Eos % (Auto) 0.0, Baso % (Auto) 0.3, Absolute Neuts (auto) 5.8, Absolute Lymphs (auto) 0.62 L, Nucleated RBC % 0, Sodium 110 L*, P otassium 3.1 L, Chloride 70 L*, Carbon Dioxide 24.0, Anion Gap 16 H, BUN 7, Creatinine 0.67, Estim Creat Clear Calc 98.88, Est GFR (MDRD) Af Amer 118, Est GFR (MDRD) Non-Af 97, BUN/Creatinine Ratio 10.5, Glucose 116 H, Calcium 8.4 L, Magnesium 1.6, Total Bilirubin 2.60 H, Direct Bilirubin 0.86 H, AST 123 H, ALT 75 H, Alkaline Phosphatase 79, Total Protein 6.7, Albumin 3.3, Globulin 3.4, Lipase 37, TSH 8.07 H, Ethyl Alcohol 6.0 02/20/24 01:40: Serum Osmolality 237 L 02/20/24 04:10: WBC 7.0, RBC 3.84 L, Hgb 12.4, Hct 34.0 L, MCV 88.5, MCH 32.3 H, MCHC 36.5 H, RDW Std Deviation 50.0 H, RDW Coeff of [place] 15.8 H, Plt Count 223, MPV 8.8, Sodium 113 L*, Potassium 3.3 L, Chloride 74 L*, Carbon Dioxide 26.0, Anion Gap 13, BUN 8, Creatinine 0.70, Estim Creat Clear Calc 92.98 (more content not included)... Normal [facility] Emergency Department Summary on 02-20-2024 Emergency Department Summary [facility] Medical Records Department [address] [place] [address] Emergency Department Summary 02/20/24 MR#: [id number] Acct: [id number] Name: ORA ADAMS Rep #: [id number] : 1970 53 From: Nato Hoyt DO PCP: AUGUSTINA Funes Status:REG ER Location: ED HPI History of Present Illness Chief Complaint: ETOH Intox Informant: patient and EMS Narrative Narrative: Patient is a 53-year-old female with history of alcohol abuse. She was admitted roughly 1 month ago secondary to hyponatremia. She states has been trying to reduce her alcohol intake and her last drink was around 3 PM this afternoon. She reports however in the last 1 to 2 days she has been having recurrent bouts of nausea and vomiting. She states has not been doing well and keeping food or fluid down. She states today she has been feeling dizzy and weak. Therefore with concern for dehydration and the worsening symptoms she presents for evaluation [facility] Medical History History of breast cancer HTN (hypertension) Hypothyroid Home Medications ???Medication ???Instructions ???Recorded ???Last Taken ???Type levothyroxine 137 mcg capsule 137 mcg PO DAILY thyroid 12/02/20 12/01/20 History lisinopril 40 mg tablet 40 mg PO DAILY blood pressure 12/02/20 12/01/20 History omeprazole 40 mg capsule,delayed 40 mg PO DAILY GERD 12/02/20 11/30/20 History release trazodone 50 mg tablet 25 - 50 mg PO QHS PRN Sleep 12/02/20 1 Week Ago History 11/25/20 hydrocodone-acetaminophen 5-325mg 1 tab PO Q4H PRN PRN Pain 2 days 09/07/22 Unknown Rx 5mg-325mg #10 TABLETS levothyroxine 150 mcg tablet 150 mcg PO DAILY 02/20/24 Unknown History Allergy/AdvReac Type Severity Reaction Status Date / Time Penicillins Allergy Hives Verified 02/19/24 23:52 Sulfa (Sulfonamide Allergy Hives Verified 02/19/24 23:52 Antibiotics) vancomycin Allergy Hives Verified 02/19/24 23:52 Surgical History H/O mastectomy H/O: hysterectomy Social History Smoking Status: Former smoker ROS ROS ED Constitutional Constitutional ED: Denies chills or fever(s) Eyes Eyes: Denies blurry vision or change in vision ENT ENT ED: Denies sore throat Cardiovascular Cardiovascular: Denies chest pain, palpitations or racing heartbeat Respiratory/Chest Respiratory/Chest: Denies cough or dyspnea Gastrointestinal Gastrointestinal: Reports nausea and vomiting; Denies abdominal pain or diarrhea Genitourinary Genitourinary ED: Denies dysuria Musculoskeletal Musculoskeletal: Denies myalgias Integumentary Denies rash Neurologic Neurologic: Reports weakness and other Details: Positive dizziness ; Denies headache(s) Hematologic/Lymphatic Hematologic/Lymphatic: Denies easy bleeding or easy bruising EXAM Physical Exam Const Vital Signs: 02/19/24 23:45 02/19/24 23:48 02/20/24 01:10 Temperature 96.6 F L 96.6 F L Temperature Source Temporal Temporal Pulse Rate 95 93 88 Respiratory Rate 16 19 H 18 Blood Pressure 156/96 H 156/96 H 100/87 H Blood Pressure Mean 116 116 91 Blood Pressure Source Monitor Pulse Ox 96 96 Oxygen Delivery Method Room Air Room Air 02/20/24 02:52 Temperature 97.9 F Temperature Source Pulse Rate 96 Respiratory Rate 15 Blood Pressure 147/81 H Blood Pressure Mean 103 Blood Pressure Source Pulse Ox 97 Oxygen Delivery Method Positive well nourished, well developed and obese General Appearance ED: well developed; Negative for pallor Nutritional Appearance: obese HEENT Reports dry mucous membranes HEENT Narrative: Mucous membranes are dry and tacky No tongue or lip swelling no oral lesions no airway edema or compromise No secondary findings in the posterior pharynx to suggest infection Mouth ED: Yes dry mucous membranes Mouth: dry mucous membranes Eyes PERRL and EOMs intact bilaterally General Eye ED: Negative for scleral icterus Neck supple Neck Narrative: No nuchal rigidity or meningeal signs noted Resp normal respiratory effort and clear to auscultation bilaterally Cardio regular rate and regular rhythm Rate: other Other Details: Regular rate and rhythm without murmurs rubs or gallops Radial and carotid pulses are equal and symmetric GI normal to inspection, nondistended, normoactive bowel sounds, non-tender, non-distended and no masses GI Narrative: No voluntary guarding or rigidity or pulsatile mass No distention or fluid wave noted No ascites present Auscultation: normoactive bowel sounds Palpation: soft Extremity normal to inspection Neuro oriented x3, CN's II-XII intact bilaterally and no sensory (more content not included)... Normal [facility] H AND P Exam - Hospitaliston 02-20-2024 H&P Exam - Hospitalist [facility] Medical Records Department [address] [place] [address] H P Exam - Hospitalist 02/20/24 0227 MR#: [id number] Acct: [id number] Name: ORA ADAMS Rep #: [id number] : 1970 53 From: Corby Brooks DO PCP: AUGUSTINA Funes Status:ADM IN Location: ICU ICU02-1 HPI - General General Date of Admission: 02/20/24 Date of Service: 02/20/24 Chief Complaint: Nausea/vomiting and poor p.o. intake HPI Narrative ORA ADAMS, is a 53 F who presented to [facility] ED on 02/20/2024 with 1 to 2- day history of nausea/vomiting and poor p.o. intake. On arrival to the ED, patient was found to have a sodium level of 110. Per ED physician, patient was mentating appropriately and denied any symptoms of mental fogginess or confusion. Chloride level notably was very low at 70. Given the very low sodium, hospitalist was contacted for admission. I saw patient at the bedside in the ED. She was sitting up comfortably in bed, conversing normally, in no acute distress. She appeared mildly fatigued and had dry mucous membranes but otherwise appeared comfortable. She denied any acute pain or discomfort. Denied any other acute concerns at this time. She notably did receive doses of IV Ativan 1 mg, IV Zofran and 1 L of normal saline before I saw her. When she arrived to the ED, she was hypertensive to the 150s over 90s and borderline tachycardic with heart rate in the 90s, otherwise hemodynamically stable. Labs notable for sodium 110, potassium 3.1, chloride 70, bicarb 24, BUN 7, creatinine 0.67, magnesium 1.6, total bilirubin 2.6, direct bili 0.8, AST 123, ALT 75, alk phos 79, TSH 8.07. No imaging was done. Patient was hospitalized here about 3 years ago for hyponatremia and presented at that time with similar symptoms. However, her sodium level at worst and was only 125. Hyponatremia then with suspected multifactorial from home hydrochlorothiazide, poor p.o. intake, GI losses and possibly some degree of beer potomania. Patient states that she is still on hydrochlorothiazide at this time, though she did self discontinue this a few days ago. Her only other home medications right now are Synthroid and lisinopril. She has not been able to keep these 2 medications down the past few days but otherwise reports compliance. Patient does have history of alcohol abuse. States that she typically drinks 2 glasses of vodka every evening. She notably reported the same amount of alcohol intake during the 2020 admission. States that she has been trying to cut back on her alcohol use over the past few weeks. Since she has developed significant nausea with vomiting in the past few days, she has not had any alcohol intake. She has never been hospitalized for alcohol withdrawal but states she will sometimes have symptoms of withdrawal such as shakiness and heart racing. Denies history of withdrawal seizures. Alcohol level was 6 in ED today. [facility] Medical History History of breast cancer HTN (hypertension) Hypothyroid Home Medications ???Medication ???Instructions ???Recorded ???Last Taken ???Type omeprazole 40 mg capsule,delayed 40 mg PO DAILY GERD 12/02/20 11/30/20 History release trazodone 50 mg tablet 25 - 50 mg PO QHS PRN Sleep 12/02/20 1 Week Ago History 11/25/20 levothyroxine 150 mcg tablet 150 mcg PO DAILY 02/20/24 Unknown History lisinopril 20 1 tab PO DAILY BLOOD PRESSURE 02/20/24 Unknown History mg-hydrochlorothiazide 25 mg tablet Allergy/AdvReac Type Severity Reaction Status Date / Time Penicillins Allergy Hives Verified 02/19/24 23:52 Sulfa (Sulfonamide Allergy Hives Verified 02/19/24 23:52 Antibiotics) vancomycin Allergy Hives Verified 02/19/24 23:52 Surgical History H/O mastectomy H/O: hysterectomy Social History Smoking Status: Former smoker ROS Constitutional Constitutional: Reports fatigue; Denies chills or fever(s) Eyes Eyes: Denies blurry vision or change in vision Cardiovascular Cardiovascular: Denies chest pain, edema, lightheadedness, palpitations, rapid heart rate or syncope Respiratory/Chest Respiratory/Chest: Denies cough or shortness of breath at rest Gastrointestinal Gastrointestinal: Reports nausea and vomiting; Denies abdominal pain, constipation or diarrhea Musculoskeletal Musculoskeletal: Denies arthralgias or myalgias Neurologic Neurologic: Denies abnormal gait, abnormal speech, confusion, disequilibrium, dizziness, focal weakness, headache(s), seizure-like activity, seizures or tremor(s) Vital Signs Vital Signs Vital Signs: 02/19/24 23:45 02/19/24 23:48 02/20/24 01:10 Temperature 96.6 F L 96.6 F L Temperature Source Temporal Tempor (more content not included)... Normal [facility] Lipaseon 02-20-2024 Lipase [Catalytic activity/Vol] 37 U/L Normal 13-75 [facility] Comment on above: Result Comment: Floresita tolbert note: LIPASE revised reference range effective 22. New Lipase methodology. Expected to produce lower values than the previous assay method. NEW Reference Range: 13 - 75 U/L Performed By: #### L 300.3900, L300.4310 #### [facility] [address] [place], [place], [id number] Liver Profileon 02-20-2024 Albumin [Mass/Vol] 3.3 g/dL Normal 3.2-5.0 [facility] Comment on above: Performed By: #### L 500.3400, L501.9100, L500.2500, L501.2450, L501.5200, L100.0100, L501.4020 #### [facility] [address] [place], [address] ALK P 79 U/L Normal 45-117 [facility] Comment on above: Performed By: #### L 500.3400, L501.9100, L500.2500, L501.2450, L501.5200, L100.0100, L501.4020 #### [facility] [address] [place], [address] ALT [Catalytic activity/Vol] 75 U/L High 13-56 [facility] Comment on above: Performed By: #### L 500.3400, L501.9100, L500.2500, L501.2450, L501.5200, L100.0100, L501.4020 #### [facility] [address] [place], [address] AST [Catalytic activity/Vol] 123 U/L High 15-37 [facility] Comment on above: Performed By: #### L 500.3400, L501.9100, L500.2500, L501.2450, L501.5200, L100.0100, L501.4020 #### [facility] [address] [place], [address] Bilirubin [Mass/Vol] 2.60 mg/dL High 0.20-1.00 [facility] Comment on above: Result Comment: For patients on eltrombopag therapy, use of Dimension [place] TBIL is not recommended. Performed By: #### L 500.3400, L501.9100, L500.2500, L501.2450, L501.5200, L100.0100, L501.4020 #### [facility] [address] [place], [address] Bilirubin.direct [Mass/Vol] 0.86 mg/dL High 0.00-0.30 [facility] Comment on above: Performed By: #### L 500.3400, L501.9100, L500.2500, L501.2450, L501.5200, L100.0100, L501.4020 #### [facility] [address] [place], [address] Globulin (S) [Mass/Vol] 3.4 g/dL Normal 2.2-4.2 [facility] Comment on above: Performed By: #### L 500.3400, L501.9100, L500.2500, L501.2450, L501.5200, L100.0100, L501.4020 #### [facility] [address] [place], [address] T PROT 6.7 g/dL Normal 6.4-8.2 [facility] Comment on above: Performed By: #### L 500.3400, L501.9100, L500.2500, L501.2450, L501.5200, L100.0100, L501.4020 #### [facility] [address] [place], [address] Magnesiumon 02-20-2024 Magnesium [Mass/Vol] 2.7 mg/dL High 1.6-2.6 [facility] Comment on above: Performed By: #### L 500.3400, L501.9100, L500.2500, L501.2450, L501.5200, L100.0100, L501.4020 #### [facility] [address] [place], [address] Magnesium [Mass/Vol] 1.6 mg/dL Normal 1.6-2.6 [facility] Comment on above: Performed By: #### L 300.3900, L300.4310 #### [facility] [address] [place], [address] Osmolality, Serumon 02-20-20 24 OSMOLALITY,SER 237 mOsm/KG Low 275-295 [facility] Comment on above: Performed By: #### L 500.3400, L501.9100, L500.2500, L501.2450, L501.5200, L100.0100, L501.4020 #### [facility] [address] [place], [address] Osmolality, Urineon 02-20-20 24 OSMOLALITY,UR 600 mOsm/KG Normal [facility] Comment on above: Result Comment: Normal Urine Reference Ranges Random: 50 - 1200 mOsm/kg H20 depending on fluid intake Random: >850 mOsm/kg after 12 hour fluid restriction 24 hour: 300 - 900 mOsm/kg H2O Performed By: #### L 500.3400, L501.9100, L500.2500, L501.2450, L501.5200, L100.0100, L501.4020 #### [facility] [address] [place], [address] Phosphoruson 02-20-2024 Phosphate [Mass/Vol] 1.6 mg/dL Low 2.5-4.9 [facility] Comment on above: Performed By: #### L 500.3400, L501.9100, L500.2500, L501.2450, L501.5200, L100.0100, L501.4020 #### [facility] [address] [place], [address] Phosphate [Mass/Vol] 1.4 mg/dL Low 2.5-4.9 [facility] Comment on above: Performed By: #### L 500.3400, L501.9100, L500.2500, L501.2450, L501.5200, L100.0100, L501.4020 #### [facility] [address] [place], [address] Prothrombin Time w/INRon INR Coag (PPP) [Relative time] 1.0 {INR} Normal [facility] Comment on above: Performed By: #### L 500.3400, L501.9100, L500.2500, L501.2450, L501.5200, L100.0100, L501.4020 #### [facility] [address] [place], [place], [id number] PT Coag (PPP) [Time] 13.4 s Normal 11.7-14.9 [facility] Comment on above: Performed By: #### L 500.3400, L501.9100, L500.2500, L501.2450, L501.5200, L100.0100, L501.4020 #### [facility] [address] [place], [address] Thyroid Stim Hormone (TSH)on 02-20-2024 TSH 8.07 uIU/mL High 0.358-3.74 [facility] Comment on above: Performed By: #### L 300.3900, L300.4310 #### [facility] [address] [place], [address] Urine Sodiumon 02-20-2024 Sodium (U) [Moles/Vol] 16 mmol/L Normal Not Establ. [facility] Comment on above: Performed By: #### L 500.3400, L501.9100, L500.2500, L501.2450, L501.5200, L100.0100, L501.4020 #### [facility] [address] [place], [place], [id number] CBC W Auto Differential pane l (Bld)on 08-21-2023 Basophils (Bld) [#/Vol] 0.11 10*3/uL High [facility] Basophils/100 WBC (Bld) 1.9 % 0.0 - 2.0 % [facility] Eosinophils (Bld) [#/Vol] 0.06 10*3/uL [facility] Eosinophils/100 WBC (Bld) 1.0 % 0.0 - 6.0 % [facility] Erythrocyte distribution width (RBC) [Ratio] 14.7 % High 11.5 - 14.5 % [facility] Hematocrit (Bld) [Volume fraction] 40.6 % 36.0 - 46.0 % [facility] Hemoglobin (Bld) [Mass/Vol] 14.0 g/dL 12.0 - 16.0 g/dL [facility] Immature granulocytes (Bld) [#/Vol] 0.02 10*3/uL [facility] Immature granulocytes/100 WBC (Bld) 0.3 % 0.0 - 0.9 % [facility] Comment on above: Immature Granulocyte Count (IG) includes promyelocytes, myelocytes and metamyelocytes but does not include bands. Percent differential counts (%) should be interpreted in the context of the absolute cell counts (cells/UL). Interpretation and review of laboratory results Abnormal [facility] Lymphocytes (Bld) [#/Vol] 1.62 10*3/uL [facility] Lymphocytes/100 WBC (Bld) 27.4 % 13.0 - 44.0 % [facility] MCH (RBC) [Entitic mass] 35.8 pg High 26. 0 - 34.0 pg [facility] MCHC (RBC) [Mass/Vol] 34.5 g/dL 32.0 - 36.0 g/dL [facility] MCV (RBC) [Entitic vol] 104 fL High 80 - 100 fL [facility] Monocytes (Bld) [#/Vol] 0.73 10*3/uL [facility] Monocytes/100 WBC (Bld) 12.4 % 2.0 - 10.0 % [facility] Neutrophils (Bld) [#/Vol] 3.37 10*3/uL [facility] Comment on above: Percent differential counts (%) should be interpreted in the context of the absolute cell counts (cells/uL). Neutrophils/100 WBC (Bld) 57.0 % 40.0 - 80.0 % [facility] Nucleated RBC/100 WBC (Bld) [Ratio] 0.0 % [facility] Platelets (Bld) [#/Vol] 372 10*3/uL [facility] RBC (Bld) [#/Vol] 3.91 10*6/uL Low [facility] WBC (Bld) [#/Vol] 5.9 10*3/uL [facility] Basophils (Bld) [#/Vol] 0.11 x10*3/uL High 0.00-0.10 [place] Comment on above: Performed By: #### 5 7021-8 #### MELYSSA RESTREPO ([id number]) [facility] ([facility]) [address] [place] [address] Basophils/100 WBC (Bld) 1.9 % Normal 0.0-2.0 [facility] Comment on above: Performed By: #### 7021-8 #### MELYSSA RESTREPO ([id number]) [facility] ([facility]) [address] [place] [address] 467[address] Eosinophils (Bld) [#/Vol] 0.06 x10*3/uL Normal 0.00-0.70 [place] Comment on above: Performed By: #### 5 7021-8 #### MELYSSA RESTREPO ([id number]) [facility] ([facility]) [address] [place] [address] 82562 Eosinophils/100 WBC (Bld) 1.0 % Normal 0.0-6.0 [place] Comment on above: Performed By: #### 7021-8 #### MELYSSA RESTREPO ([id number]) [facility] ([facility]) [address] [place] [address] 76156 Erythrocyte distribution width (RBC) [Ratio] 14.7 % High 11.5-14.5 [place] Comment on above: Performed By: #### 5 7021-8 #### MELYSSA RESTREPO (88310) [facility] ([facility]) [address] [place] [address] Hematocrit (Bld) [Volume fraction] 40.6 % Normal 36.0-46.0 [place] Comment on above: Performed By: #### 7021-8 #### MELYSSA RESTREPO (28219) [facility] ([facility]) [address] [place] [address]859 Hemoglobin (Bld) [Mass/Vol] 14.0 g/dL Normal 12.0-16.0 [place] Comment on above: Performed By: #### 7021-8 #### MELYSSA RESTREPO (87942) [facility] ([facility]) [facility] [place] [address] Immature granulocytes (Bld) [#/Vol] 0.02 x10*3/uL Normal 0.00-0.70 [place] Comment on above: Performed By: #### 5 7021-8 #### MELYSSA RESTREPO (16705) [facility] ([facility]) [address] [place] [address] 56775 Immature granulocytes/100 WBC (Bld) 0.3 % Normal 0.0-0.9 [place] Comment on above: Result Comment: Amalia ture Granulocyte Count (IG) includes promyelocytes, myelocytes and metamyelocytes but does not include bands. Percent differential counts (%) should be interpreted in the context of the absolute cell counts (cells/UL). Performed By: #### 5 7021-8 #### MELYSSA RESTREPO ([id number]) [facility] ([facility]) [address] [place] [address]291 Lymphocytes (Bld) [#/Vol] 1.62 x10*3/uL Normal 1.20-4.80 [place] Comment on above: Performed By: #### 5 7021-8 #### MELYSSA RESTREPO ([id number]) [facility] ([facility]) [address] [place] [address] 50426 Lymphocytes/100 WBC (Bld) 27.4 % Normal 13.0-44.0 [place] Comment on above: Performed By: #### 5 7021-8 #### MELYSSA RESTREPO (49259) [facility] ([facility]) [address] [place] [address] 60908 MCH (RBC) [Entitic mass] 35.8 pg High 26.0-34.0 [place] Comment on above: Performed By: #### 5 7021-8 #### MELYSSA RESTREPO (26592) [facility] ([facility]) [address] [place] [address] 04517 MCHC (RBC) [Mass/Vol] 34.5 g/dL Normal 32.0-36.0 [facility] Comment on above: Performed By: #### 5 7021-8 #### MELYSSA RESTREPO (37299) [facility] ([facility]) [address] [place] [address] 09946 MCV (RBC) [Entitic vol] 104 fL High 80-100 U [facility] Comment on above: Performed By: #### 5 7021-8 #### MELYSSA RESTREPO ([id number]) [facility] ([facility]) [address] [place] [address] 14132 Monocytes (Bld) [#/Vol] 0.73 x10*3/uL Normal 0.10-1.00 [place] Comment on above: Performed By: #### 5 7021-8 #### MELYSSA RESTREPO ([id number]) [facility] ([facility]) [address] [place] [address] 41553 Monocytes/100 WBC (Bld) 12.4 % Normal 2.0-10.0 [facility] Comment on above: Performed By: #### 5 7021-8 #### MELYSSA RESTREPO (24927) [facility] ([facility]) [address] [place] [address] 51119 Neutrophils (Bld) [#/Vol] 3.37 x10*3/uL Normal 1.20-7.70 [place] Comment on above: Result Comment: Perc ent differential counts (%) should be interpreted in the context of the absolute cell counts (cells/uL). Performed By: #### 5 7021-8 #### MELYSSA RESTREPO ([id number]) [facility] ([facility]) [address] [place] [address] 71511 Neutrophils/100 WBC (Bld) 57.0 % Normal 40.0-80.0 [place] Comment on above: Performed By: #### 5 7021-8 #### MELYSSA RESTREPO (72803) [facility] ([facility]) [address] [place] [address] 64430 Nucleated RBC/100 WBC (Bld) [Ratio] 0.0 /100 WBCs Normal 0.0-0.0 [place] Comment on above: Performed By: #### 5 7021-8 #### MELYSSA RESTREPO ([id number]) [facility] ([facility]) [address] [place] [address] 54634 Platelets (Bld) [#/Vol] 372 x10*3/uL Normal 150-450 [place] Comment on above: Performed By: #### 5 7021-8 #### MELYSSA RESTREPO (65574) [facility] ([facility]) [address] [place] [address] RBC (Bld) [#/Vol] 3.91 x10*6/uL Low 4.00-5.20 [facility] Comment on above: Performed By: #### 5 7021-8 #### MELYSSA RESTREPO ([id number]) [facility] ([facility]) [address] [place] [address] 29070 WBC (Bld) [#/Vol] 5.9 x10*3/uL Normal 4.4-11.3 [facility] Comment on above: Performed By: #### 5 7021-8 #### MELYSSA RESTREPO ([id number]) [facility] ([facility]) [address] [place] [address] CT HEAD WO IV CONTRASTon CT HEAD WO IV CONTRAST Interpreted By: Quintin Draper, STUDY: CT HEAD WO IV CONTRAST; 08/21/2023 3:07 pm INDICATION: Signs/Symptoms:double vision. COMPARISON: None. ACCESSION NUMBER(S): [id number] ORDERING CLINICIAN: POLLO VERMA TECHNIQUE: Noncontrast volumetric CT scan of head and facial bones was performed. Angled reformats in brain and bone windows were generated. The images were reviewed in bone, brain, blood and soft tissue windows. Three-dimensional reformations were processed of the facial bones on a separate workstation. FINDINGS: CSF Spaces: The ventricles, sulci and basal cisterns are within normal limits. There is no extraaxial fluid collection. Parenchyma: The cotton-white differentiation is intact. There is no mass effect or midline shift. There is no intracranial hemorrhage. Calvarium: The calvarium is unremarkable. Facial bones, paranasal sinuses and mastoids: Visualized paranasal sinuses and mastoids are clear. IMPRESSION: No CT evidence of acute intracranial pathology. MACRO: None Signed by: Quintin Sena 08/21/2023 3:47 PM Dictation workstation: [id number] [facility] CT Head WO contraston [address] evidence of ac tracy intracranial pathology. MACRO: None Signed by: Quintin Sena 08/21/2023 3:47 PM Dictation workstation: [id number] [facility] Interpreted By: Quintin Bashir, STUDY: CT HEAD WO IV CONTRAST; 08/21/2023 3:07 pm INDICATION: Signs/Symptoms:double vision. COMPARISON: None. ACCESSION NUMBER(S): [id number] ORDERING CLINICIAN: POLLO VERMA TECHNIQUE: Noncontrast volumetric CT scan of head and facial bones was performed. Angled reformats in brain and bone windows were generated. The images were reviewed in bone, brain, blood and soft tissue windows. Three-dimensional reformations were processed of the facial bones on a separate workstation. FINDINGS: CSF Spaces: The ventricles, sulci and basal cisterns are within normal limits. There is no extraaxial fluid collection. Parenchyma: The cotton-white differentiation is intact. There is no mass effect or midline shift. There is no intracranial hemorrhage. Calvarium: The calvarium is unremarkable. Facial bones, paranasal sinuses and mastoids: Visualized paranasal sinuses and mastoids are clear. MMODAL Quintin Sena MD - 08/21/2023 Interpreted By: Quintin Sena, STUDY: CT HEAD WO IV CONTRAST; 08/21/2023 3:07 pm INDICATION: Signs/Symptoms:double vision. COMPARISON: None. ACCESSION NUMBER(S): [id number] ORDERING CLINICIAN: POLLO VERMA TECHNIQUE: Noncontrast volumetric CT scan of head and facial bones was performed. Angled reformats in brain and bone windows were generated. The images were reviewed in bone, brain, blood and soft tissue windows. Three-dimensional reformations were processed of the facial bones on a separate workstation. FINDINGS: CSF Spaces: The ventricles, sulci and basal cisterns are within normal limits. There is no extraaxial fluid collection. Parenchyma: The cotton-white differentiation is intact. There is no mass effect or midline shift. There is no intracranial hemorrhage. Calvarium: The calvarium is unremarkable. Facial bones, paranasal sinuses and mastoids: Visualized paranasal sinuses and mastoids are clear. IMPRESSION: No CT evidence of acute intracranial pathology. MACRO: None Signed by: Quintin Sena 08/21/2023 3:47 PM Dictation workstation: [id number] [facility] Work Phone: Radiology Study observation (narrative) [facility] Work Phone: CT Head WO contrastOrdered B y: Quintin Sena on 08-21-2023 [facility] Work Phone: Comprehensive metabolic 2000 panelon 08-21-2023 Albumin BCP dye [Mass/Vol] 4.5 g/dL 3.4 - 5.0 g/dL [facility] ALP [Catalytic activity/Vol] 73 U/L 33 - 110 U/L [facility] ALT With P-5'-P [Catalytic activity/Vol] 91 U/L High 7 - 45 U/L [facility] Comment on above: Patients treated wit h Sulfasalazine may generate falsely decreased results for ALT. Anion gap [Moles/Vol] 21 mmol/L High 10 - 2 0 mmol/L [facility] AST With P-5'-P [Catalytic activity/Vol] 175 U/L High 9 - 39 U/L [facility] Bilirubin [Mass/Vol] 2.8 mg/dL High 0.0 - 1 .2 mg/dL [facility] Calcium [Mass/Vol] 8.9 mg/dL 8.6 - 10. 3 mg/dL [facility] Chloride [Moles/Vol] 92 mmol/L Low 98 - 10 7 mmol/L [facility] CO2 [Moles/Vol] 22 mmol/L 21 - 32 mmol/L [facility] Creatinine [Mass/Vol] 0.74 mg/dL 0.50 - 1.05 mg/dL [facility] eGFR - PINF [facility] Comment on above: Calculations of ghada mated GFR are performed using the 2020 CKD-EPI Study Refit equation without the race variable for the IDMS-Traceable creatinine methods. https://jasn.asnjournals.org/content//ASN.185 3307781 Glucose [Mass/Vol] 81 mg/dL 74 - 99 mg/dL [facility] Interpretation and review of laboratory results Abnormal [facility] Potassium [Moles/Vol] 3.7 mmol/L 3.5 - 5.3 mmol/L [facility] Protein [Mass/Vol] 7.3 g/dL 6.4 - 8.2 g/dL [facility] Sodium [Moles/Vol] 131 mmol/L Low 136 - 145 mmol/L [facility] Urea nitrogen [Mass/Vol] 9 mg/dL 6 - 23 mg/dL [facility] Albumin BCP dye [Mass/Vol] 4.5 g/dL Normal 3.4-5.0 [place] Comment on above: Performed By: #### 2 4323-8 #### MELYSSA RESTREPO ([id number]) [facility] ([facility]) [address] [place] [address] 61382 ALP [Catalytic activity/Vol] 73 U/L Normal 33-110 [facility] Comment on above: Performed By: #### 2 4323-8 #### MELYSSA RESTREPO (59895) [facility] ([facility]) [facility] [place] [address] ALT With P-5'-P [Catalytic activity/Vol] 91 U/L High 7-45 [facility] Comment on above: Result Comment: Sade ents treated with Sulfasalazine may generate falsely decreased results for ALT. Performed By: #### 2 4323-8 #### MELYSSA RESTREPO ([id number]) [facility] ([facility]) [facility] [place] [address] Anion gap [Moles/Vol] 21 mmol/L High 10-20 [facility] Comment on above: Performed By: #### 2 4323-8 #### MELYSSA RESTREPO (32112) [facility] ([facility]) [address] [place] [address] AST With P-5'-P [Catalytic activity/Vol] 175 U/L High 9-39 [facility] Comment on above: Performed By: #### 2 4323-8 #### MELYSSA RESTREPO (15035) [facility] ([facility]) [address] [place] [address] Bilirubin [Mass/Vol] 2.8 mg/dL High 0.0-1.2 [facility] Comment on above: Performed By: #### 2 432-8 #### MELYSSA RESTREPO (49155) [facility] ([facility]) [address] [place] [address] 11967 Calcium [Mass/Vol] 8.9 mg/dL Normal 8.6-10.3 [facility] Comment on above: Performed By: #### 2 4323-8 #### MELYSSA RESTREPO (17503) [facility] ([facility]) [address] [place] [address] Chloride [Moles/Vol] 92 mmol/L Low 98-107 [facility] Comment on above: Performed By: #### 2 4323-8 #### MELYSSA RESTREPO ([id number]) [facility] LAB ([facility]) [address] [place] [address] CO2 [Moles/Vol] 22 mmol/L Normal 21-[address] [facility] Comment on above: Performed By: #### 2 4323-8 #### MELYSSA RESTREPO ([id number]) [facility] ([facility]) [address] [place] [address] Creatinine [Mass/Vol] 0.74 mg/dL Normal 0.50-1.05 [facility] Comment on above: Performed By: #### 2 4323-8 #### MELYSSA RESTREPO ([id number]) [facility] ([facility]) [address] [place] [address] GFR/1.73 sq M.predicted MDRD (S/P/Bld) [Vol rate/Area] mL/min/{1.73_m2} Normal >60 [place] Comment on above: Result Comment: Calc ulations of estimated GFR are performed using the 2020 CKD-EPI Study Refit equation without the race variable for the IDMS-Traceable creatinine methods. https://jasn.asnjournals.org/content//ASN.014 4161751 Performed By: #### 2 4323-8 #### MELYSSA RESTREPO ([id number]) [facility] ([facility]) [address] [place] [address] Glucose [Mass/Vol] 81 mg/dL Normal 74-99 [facility] Comment on above: Performed By: #### 2 4323-8 #### MELYSSA RESTREPO ([id number]) [facility] ([facility]) [address] [place] [address] Potassium [Moles/Vol] 3.7 mmol/L Normal 3.5-5.3 [facility] Comment on above: Performed By: #### 2 4323-8 #### MELYSSA RESTREPO ([id number]) [facility] ([facility]) [address] [place] [address] Protein [Mass/Vol] 7.3 g/dL Normal 6.4-8.2 [facility] Comment on above: Performed By: #### 2 4323-8 #### MELYSSA RESTREPO ([id number]) [facility] ([facility]) [address] [place] [address] Sodium [Moles/Vol] 131 mmol/L Low 136-145 [facility] Comment on above: Performed By: #### 2 4323-8 #### MELYSSA RESTREPO ([id number]) [facility] ([facility]) [address] [place] [address] Urea nitrogen [Mass/Vol] 9 mg/dL Normal 6-23 [place] Comment on above: Performed By: #### 2 4323-8 #### MELYSSA RESTREPO ([id number]) [facility] ([facility]) [address] [place] [address] ECG 12-LEADon 08-21-2023 ECG 12-LEAD Ventricular Rate 92 Atrial Rate 92 P-R Interval 166 QRS Duration 68 Q-T Interval 390 QTC Calculation(Bazett) 482 P Elgin 75 R Elgin 72 T Elgin 72 QRS Count 15 Q Onset 229 P Onset 146 P Offset 207 T Offset 424 QTC Fredericia 449 Diagnosis Normal sinus rhythm Nonspecific ST abnormality Prolonged QT Abnormal ECG No previous ECGs available See ED provider note for full interpretation and clinical correlation Confirmed by Pollo Verma ([id number]) on 08/25/2023 5:51:12 PM Normal [facility] FLUAV and FLUBV RNA CARLEE+prob e Nom (Unsp spec)on 08-21-2023 FLUAV RNA CARLEE+probe Ql (Resp) Not detected Not Detected [facility] FLUBV RNA CARLEE+probe Ql (Resp) Not detected Not Detected [facility] This assay is an in vitro diagnostic multiplex nucleic acid amplification test for the detection and discrimination of Influenza A & B from nasopharyngeal specimens, and has been validated for use at [place]. Negative results do not preclude Influenza A/B infections, and should not be used as the sole basis for diagnosis, treatment, or other management decisions. If Influenza A/B and RSV PCR results are negative, testing for Parainfluenza virus, Adenovirus and Metapneumovirus is routinely performed for [facility] pediatric oncology and intensive care inpatients, and is available on other patients by placing an add-on request. [facility] FLUAV RNA CARLEE+probe Ql (Resp) Not detected Normal Not Detected [place] Comment on above: Order Comment: This assay is an in vitro diagnostic multiplex nucleic acid amplification test for the detection and discrimination of Influenza A & B from nasopharyngeal specimens, and has been validated for use at [place]. Negative results do not preclude Influenza A/B infections, and should not be used as the sole basis for diagnosis, treatment, or other management decisions. If Influenza A/B and RSV PCR results are negative, testing for Parainfluenza virus, Adenovirus and Metapneumovirus is routinely performed for [facility] pediatric oncology and intensive care inpatients, and is available on other patients by placing an add-on request. Performed By: #### 4 8509-4 ###Jossue RESTREPO ([id number]) [facility] ([facility]) [address] [place] [address] FLUBV RNA CARLEE+probe Ql (Resp) Not detected Normal Not Detected [place] Comment on above: Order Comment: This assay is an in vitro diagnostic multiplex nucleic acid amplification test for the detection and discrimination of Influenza A & B from nasopharyngeal specimens, and has been validated for use at [place]. Negative results do not preclude Influenza A/B infections, and should not be used as the sole basis for diagnosis, treatment, or other management decisions. If Influenza A/B and RSV PCR results are negative, testing for Parainfluenza virus, Adenovirus and Metapneumovirus is routinely performed for [facility] pediatric oncology and intensive care inpatients, and is available on other patients by placing an add-on request. Performed By: #### 4 8509-4 #### MELYSSA RESTREPO ([id number]) [facility] ([facility]) [address] [place], [place] [address] Magnesiumon 08-21-2023 Magnesium [Mass/Vol] 1.96 mg/dL 1.60 - 2.40 mg/dL [facility] Magnesium [Mass/Vol] 1.96 mg/dL Normal 1.60-2.40 [facility] Comment on above: Performed By: #### 1 9123-9 #### MELYSSA RESTREPO ([id number]) [facility] ([facility]) [facility] [place] [address] Magnesium [Mass/Vol]on 08-21 Interpretation and review of laboratory results Normal [facility] No Panel Informationon 08-21 Interpretation and review of laboratory results Normal [facility] SARS coronavirus 2 RNAon SARS-CoV-2 (COVID-19) RNA CARLEE+probe Ql (Resp) Not detected Normal Not Detected [place] Comment on above: Order Comment: This assay has received FDA Emergency Use Authorization (EUA) and is only authorized for the duration of time that circumstances exist to justify the authorization of the emergency use of in vitro diagnostic tests for the detection of SARS-CoV-2 virus and/or diagnosis of COVID-19 infection under section 564(b)(1) of the Act, 21 U.S.C. 360bbb-3(b)(1). This assay is an in vitro diagnostic nucleic acid amplification test for the qualitative detection of SARS-CoV-2 from nasopharyngeal specimens and has been validated for use at [place]. Negative results do not preclude COVID-19 infections and should not be used as the sole basis for diagnosis, treatment, or other management decisions. Performed By: #### 9 4500-6 #### RAGDSALE KAYE ([id number]) [facility] ([facility]) [address] [place] [address] SARS-CoV-2 (COVID-19) RNA NA A+probe Ql (Resp)on 08-21-2023 This assay has recei chelle FDA Emergency Use Authorization (EUA) and is only authorized for the duration of time that circumstances exist to justify the authorization of the emergency use of in vitro diagnostic tests for the detection of SARS-CoV-2 virus and/or diagnosis of COVID-19 infection under section 564(b)(1) of the Act, 21 U.S.C. 360bbb-3(b)(1). This assay is an in vitro diagnostic nucleic acid amplification test for the qualitative detection of SARS-CoV-2 from nasopharyngeal specimens and has been validated for use at [place]. Negative results do not preclude COVID-19 infections and should not be used as the sole basis for diagnosis, treatment, or other management decisions. [facility] SARS-CoV-2 RT PCRon 08-21-19 SARS-CoV-2 (COVID-19) RNA CARLEE+probe Ql (Resp) Not detected Not Detected [facility] Tropinin I.cardiac panel Hig h sensitivity methodon 08-21-2023 Interpretation and review of laboratory results Normal [facility] Less than 99th perce ntile of normal range cutoff- Female and children under 18 years old <14 ng/L; Male <21 ng/L: Negative Repeat testing should be performed if clinically indicated. Female and children under 18 years old 14-50 ng/L; Male 21-50 ng/L: Consistent with possible cardiac damage and possible increased clinical risk. Serial measurements may help to assess extent of myocardial damage. >50 ng/L: Consistent with cardiac damage, increased clinical risk and myocardial infarction. Serial measurements may help assess extent of myocardial damage. NOTE: Children less than 1 year old may have higher baseline troponin levels and results should be interpreted in conjunction with the overall clinical context. NOTE: Troponin I testing is performed using a different testing methodology at [facility] than at other [facility]. Direct result comparisons should only be made within the same method. [facility] Troponin I, High Sensitivity on 08-21-2023 Tropinin I.cardiac panel High sensitivity method 9 ng/L 0 - 13 ng/L [facility] Troponin I.cardiac panelon 0 08-21-2023 Tropinin I.cardiac panel High sensitivity method 9 ng/L Normal 0-13 [facility] Comment on above: Order Comment: Less than 99th percentile of normal range cutoff- Female and children under 18 years old <14 ng/L; Male <21 ng/L: Negative Repeat testing should be performed if clinically indicated. Female and children under 18 years old 14-50 ng/L; Male 21-50 ng/L: Consistent with possible cardiac damage and possible increased clinical risk. Serial measurements may help to assess extent of myocardial damage. >50 ng/L: Consistent with cardiac damage, increased clinical risk and myocardial infarction. Serial measurements may help assess extent of myocardial damage. NOTE: Children less than 1 year old may have higher baseline troponin levels and results should be interpreted in conjunction with the overall clinical context. NOTE: Troponin I testing is performed using a different testing methodology at [facility] than at other [facility]. Direct result comparisons should only be made within the same method. Performed By: #### 8 9577-1 #### RAGSDALE KAYE ([id number]) [facility] ([facility]) [address] [place] [address] Urinalysis complete W Reflex Culture panel (U)on 08-21-2023 Appearance (U) Hazy Abnormal Clear [facility] Bacteria Auto (Urine sed) [#/Area] 1+ Abnormal NONE SEEN /HPF [facility] Bilirubin (U) [Mass/Vol] Negative NEGATIVE [facility] Color (U) Yellow Straw, Yellow [facility] Epithelial cells.squamous Auto (Urine sed) [#/Area] 1-9 (SPARSE) Reference range not establishe d. /HPF [facility] Glucose Auto test strip (U) [Mass/Vol] Negative NEGATIVE mg/dL [facility] Interpretation and review of laboratory results Abnormal [facility] Ketones (U) [Mass/Vol] 20 (1+) Abnormal NEGAT CALE mg/dL [facility] Leukocyte esterase Auto test strip Ql (U) Negative NEGATIVE [facility] Mucus Auto (Urine sed) [#/Area] 1+ Reference range not establishe d. /LPF [facility] Nitrite Auto test strip Ql (U) Negative NEGATIVE [facility] pH (U) 6.0 [pH] 5.0, 5.5, 6.0, 6.5, 7.0, 7.5, 8.0 [facility] Protein (U) [Mass/Vol] 30 (1+) Abnormal NEGAT CALE mg/dL [facility] RBC (U) [#/Vol] Negative NEGATIVE [facility] RBC Auto (Urine sed) [#/Area] 1-2 NONE, 1-2, 3-5 /HPF [facility] Specific gravity (U) [Rel density] 1.012 1.005 - 1.035 [facility] Urobilinogen (U) [Mass/Vol] mg/dL NINF - 2.0 mg/dL [facility] WBC Auto (Urine sed) [#/Area] 1-5 1-5, NONE /HPF [facility] Appearance (U) Hazy Normal Clear [place] Comment on above: Performed By: #### 5 8077-9 #### MELYSSA RESTREPO ([id number]) [facility] ([facility]) [address] [place] [address] Bacteria Auto (Urine sed) [#/Area] 1+ /HPF Abnormal NONE SEEN [place] Comment on above: Performed By: #### 5 8077-9 #### MELYSSA RESTREPO ([id number]) [facility] ([facility]) [address] [place] [address] Bilirubin (U) [Mass/Vol] Negative Normal NEGATIVE [place] Comment on above: Performed By: #### 5 8077-9 #### MELYSSA RESTREPO ([id number]) [facility] ([facility]) [address] [place] [address] Color (U) Yellow Normal Straw, Yellow [place] Comment on above: Performed By: #### 5 8077-9 #### MELYSSA RESTREPO ([id number]) [facility] ([facility]) [address] [place] [address] Epithelial cells.squamous Auto (Urine sed) [#/Area] 1-9 (SPARSE) Normal Reference range not establishe d. [place] Comment on above: Performed By: #### 5 8077-9 #### MELYSSA RESTREPO ([id number]) [facility] ([facility]) [address] [place] [address] Glucose Auto test strip (U) [Mass/Vol] Negative Normal NEGATIVE [place] Comment on above: Performed By: #### 5 8077-9 #### MELYSSA RESTREPO ([id number]) [facility] ([facility]) [address] [place] [address] Ketones (U) [Mass/Vol] 20 (1+) Abnormal NEGATIVE [facility] Comment on above: Performed By: #### 5 8077-9 #### MELYSSA RESTREPO ([id number]) [facility] ([facility]) [address] [place] [address] Leukocyte esterase Auto test strip Ql (U) Negative Normal NEGATIVE [place] Comment on above: Performed By: #### 5 8077-9 #### MELYSSA RESTREPO ([id number]) [facility] ([facility]) [address] [place] [address] Mucus Auto (Urine sed) [#/Area] 1+ /LPF Normal Reference range not establishe d. [place] Comment on above: Performed By: #### 5 8077-9 #### MELYSSA RESTREPO ([id number]) [facility] ([facility]) [address] [place] [address] Nitrite Auto test strip Ql (U) Negative Normal NEGATIVE [place] Comment on above: Performed By: #### 5 8077-9 #### MELYSSA RESTREPO ([id number]) [facility] ([facility]) [address] [place] [address] pH (U) 6.0 [pH] Normal 5.0, 5.5, 6.0, 6.5, 7.0, 7.5, 8.0 [place] Comment on above: Performed By: #### 5 8077-9 #### MELYSSA RESTREPO ([id number]) [facility] ([facility]) [address] [place] [address] Protein (U) [Mass/Vol] 30 (1+) Normal NEGATIVE [facility] Comment on above: Performed By: #### 5 8077-9 #### MELYSSA RESTREPO ([id number]) [facility] ([facility]) [address] [place] [address]34 RBC (U) [#/Vol] Negative Normal NEGATIVE [facility] Comment on above: Performed By: #### 5 8077-9 #### MELYSSA RESTREPO ([id number]) [facility] ([facility]) [address] [place] [address] RBC Auto (Urine sed) [#/Area] 1-2 Normal NONE, 1-2, 3-5 [place] Comment on above: Performed By: #### 5 8077-9 #### MELYSSA RESTREPO ([id number]) [facility] ([facility]) [address] [place] [address] Specific gravity (U) [Rel density] 1.012 Normal 1.005-1.[address] [place] [address] Comment on above: Performed By: #### 5 8077-9 #### MELYSSA RESTREPO ([id number]) [facility] ([facility]) [address] [place] [address] Urobilinogen (U) [Mass/Vol] mg/dL Normal <2.0 [place] Comment on above: Performed By: #### 5 8077-9 #### MELYSSA RESTREPO ([id number]) [facility] ([facility]) [address] [place] [address] WBC Auto (Urine sed) [#/Area] 1-5 Normal 1-5, NONE [place] Comment on above: Performed By: #### 5 8077-9 #### RAGSDALE KAYE ([id number]) [facility] ([facility]) [address] [place] [address] XR CHEST 1 VIEWon 08-21-2023 XR CHEST 1 VIEW Interpreted By: Tracey Blancas, STUDY: XR CHEST 1 VIEW; 08/21/2023 2:11 pm INDICATION: Signs/Symptoms:weakness. COMPARISON: None. ACCESSION NUMBER(S): [id number] ORDERING CLINICIAN: POLLO VERMA FINDINGS: Faint linear densities in each lung base. No pleural effusion or pneumothorax. Cardiac silhouette within normal limits for size. Faint circular densities overlying each lower chest likely reflect breast implants. Left axillary surgical clips. IMPRESSION: Faint linear opacities in each lung base. MACRO: None. Signed by: Tracey Garnett 08/21/2023 2:53 PM Dictation workstation: [id number] Normal [place] XR Chest Single viewon 08-21 Faint linear opaciti es in each lung base. MACRO: None. Signed by: Tracey Garnett 08/21/2023 2:53 PM Dictation workstation: [id number] MMODAL Interpreted By: Tracey Blancas, STUDY: XR CHEST 1 VIEW; 08/21/2023 2:11 pm INDICATION: Signs/Symptoms:weakness. COMPARISON: None. ACCESSION NUMBER(S): [id number] ORDERING CLINICIAN: POLLO VERMA FINDINGS: Faint linear densities in each lung base. No pleural effusion or pneumothorax. Cardiac silhouette within normal limits for size. Faint circular densities overlying each lower chest likely reflect breast implants. Left axillary surgical clips. MMODAL Tracey Garnett MD - 08/21/2023 Interpreted By: Tracey Garnett, STUDY: XR CHEST 1 VIEW; 08/21/2023 2:11 pm INDICATION: Signs/Symptoms:weakness. COMPARISON: None. ACCESSION NUMBER(S): [id number] ORDERING CLINICIAN: POLLO VERMA FINDINGS: Faint linear densities in each lung base. No pleural effusion or pneumothorax. Cardiac silhouette within normal limits for size. Faint circular densities overlying each lower chest likely reflect breast implants. Left axillary surgical clips. IMPRESSION: Faint linear opacities in each lung base. MACRO: None. Signed by: Tracey Garnett 08/21/2023 2:53 PM Dictation workstation: [id number] [facility] Work Phone: Radiology Study observation (narrative) [facility] Work Phone: XR Chest Single viewOrdered By: Tracey Garnett on 08-21-2023 [facility] Work Phone: Basophil percentageOrdered B y: John Paul Urbina on 01-18-2023 Chloride [Moles/Vol] 97 mmol/L 98-107 [facility] Glucose [Mass/Vol] 92 mg/dL 74-106 [facility] Potassium [Moles/Vol] 3.7 mmol/L 3.5-5.1 [facility] Sodium [Moles/Vol] 135 mmol/L 136-145 [facility] Laboratory - Chemistry and C hemistry - challengeOrdered By: John Paul Urbina on 01-18-2023 CO2 [Moles/Vol] 29.0 mmol/L 21.0-32.0 [facility] Urea nitrogen/Creatinine [Mass ratio] 8.0 mg/mg 10-20 [facility] No Panel InformationOrdered By: John Paul Urbina on 01-18-2023 Estimated GFR (MDRD) Amer 87 mL/min >60 [facility] Comment on above: GFR Calc Estimated GFR (MDRD) Non-Af Amer 72 mL/min >60 [facility] Comment on above: Non- GFR Calc Serum or plasma calcium tammie urement (mass/volume)Ordered By: John Paul Urbina on 01-18-2023 Calcium [Mass/Vol] 9.0 mg/dL 8.5-10.1 [facility] Serum or plasma creatinine m easurement (mass/volume)Ordered By: John Paul Urbina on 01-18-2023 Creatinine [Mass/Vol] 0.88 mg/dL 0.55-1.02 [facility] Comment on above: The validity of the calculated GFR & GFRAA in patients over 70 years has not been determined. Clinical correlation is essential. Serum or plasma urea nitroge n measurement (mass/volume)Ordered By: oJhn Paul Urbina on 01-18-2023 Urea nitrogen [Mass/Vol] 7 mg/dL 7-18 [facility] Thin prep Papanicolaou smear with manual screeningOrdered By: John Paul Urbina on 01-18-2023 Thin prep Papanicolaou smear with manual screening 9 5-15 [facility] Basophil percentageOrdered B y: Dr. Moon on 01-11-2023 Chloride [Moles/Vol] 83 mmol/L 98-107 [facility] Glucose [Mass/Vol] 98 mg/dL 74-106 [facility] Potassium [Moles/Vol] 2.9 mmol/L 3.5-5.1 [facility] Sodium [Moles/Vol] 125 mmol/L 136-145 [facility] WBC (Bld) [#/Vol] 7.6 10*3/uL 4.4-11.0 [facility] Blood erythrocytes count (nu mber/volume)Ordered By: Dr. Moon on 01-11-2023 RBC (Bld) [#/Vol] 4.62 10*6/uL 4.2-5.4 [facility] Blood hemoglobin measurement (mass/volume)Ordered By: Dr. Moon on 01-11-2023 Hemoglobin (Bld) [Mass/Vol] 14.5 g/dL 12.0-15.0 [facility] Blood manual differential co mment interpretation (narrative result)Ordered By: Dr. Moon on 01-11-2023 Manual differential comment Eduard (Bld) [Interp] COMMENT [facility] Comment on above: 1+ ANISO. Blood platelet mean volumeOr dered By: Dr. Moon on 01-11-2023 Platelet mean volume (Bld) [Entitic vol] 9.1 fL 6.2-12.0 [facility] Determination of erythrocyte mean corpuscular volume (MCV)Ordered By: Dr. Moon on 01-11-2023 MCV (RBC) [Entitic vol] 90.5 fL 81-99 [facility] Hematocrit Auto (Bld) [Volum e fraction]Ordered By: Dr. Moon on 01-11-2023 Hematocrit (Bld) [Volume fraction] 41.8 % 37-47 [facility] Laboratory - Chemistry and C hemistry - challengeOrdered By: Dr. Moon on 01-11-2023 CO2 [Moles/Vol] 30.0 mmol/L 21.0-32.0 [facility] Urea nitrogen/Creatinine [Mass ratio] 8.5 mg/mg 10-20 [facility] Laboratory - Hematology and Cell countsOrdered By: Dr. Moon on 01-11-2023 Erythrocyte distribution width (RBC) [Entitic vol] 63.1 fL 35.1-43.9 [facility] Erythrocyte distribution width (RBC) [Ratio] 20.1 % 11.6-14.6 [facility] MCH (RBC) [Entitic mass] 31.4 pg 27.0-32.0 [facility] MCHC Auto (RBC) [Mass/Vol]Or dered By: Dr. Moon on 01-11-2023 MCHC (RBC) [Mass/Vol] 34.7 g/dL 32-36 [facility] No Panel InformationOrdered By: Dr. Moon on 01-11-2023 Estimated GFR (MDRD) Amer 112 mL/min >60 [facility] Comment on above: GFR Calc Estimated GFR (MDRD) Non-Af Amer 92 mL/min >60 [facility] Comment on above: Non- GFR Calc Platelets bldOrdered By: Dr. Moon on 01-11-2023 Platelets (Bld) [#/Vol] 403 10*3/uL 150-450 [facility] Serum or plasma calcium tammie urement (mass/volume)Ordered By: Dr. Moon on 01-11-2023 Calcium [Mass/Vol] 8.9 mg/dL 8.5-10.1 [facility] Serum or plasma creatinine m easurement (mass/volume)Ordered By: Dr. Moon on 01-11-2023 Creatinine [Mass/Vol] 0.70 mg/dL 0.55-1.02 [facility] Comment on above: The validity of the calculated GFR & GFRAA in patients over 70 years has not been determined. Clinical correlation is essential. Serum or plasma urea nitroge n measurement (mass/volume)Ordered By: Dr. Moon on 01-11-2023 Urea nitrogen [Mass/Vol] 6 mg/dL 7-18 [facility] Thin prep Papanicolaou smear with manual screeningOrdered By: Dr. Moon on 01-11-2023 Thin prep Papanicolaou smear with manual screening 12 5-15 [facility] NM BONE SCANon 06-06-2019 NM BONE SCAN 06/05/2019 10:23 AM NUCLEAR MEDICINE: WHOLE BODY BONE SCAN: INDICATION: Breast cancer COMPARISON: No prior bone scan TECHNIQUE: Whole body bone scan was performed 2 to 3 hours after IV injection of 26 mCi of technetium 99m MDP. FINDINGS: No suspicious uptake to suggest osseous metastatic disease. Mild uptake in the shoulders, left wrist and hips could be biomechanical stress or arthritis. Symmetric mild uptake at the symphysis pubis could be a normal variant or osteitis pubis. IMPRESSION: No evidence of osseous metastatic disease. DICTATED BY: WING MURRELL M.D.Workstation ID:[id number] Normal [facility] XR HIP LEFT STANDARD VIEWon 04-06-2019 XR HIP LEFT STANDARD VIEW Left hip History: Pain 2 views of the hip demonstrate no fracture or dislocation. The hip joint space is well maintained. The femoral head joint surface is well maintained. Small calcifications are noted within the pelvis which can be due phleboliths. Mild endplate spurring in the lower lumbar spine. Impression: No fracture. The left hip joint appears well maintained. Mild endplate spurring in the lower lumbar spine due to mild chronic degenerative change. Dictated by Emma Garcia MD, PhD Workstation ID:[id number] [facility] TSH+FREE T4on 01-03-2019 Free T4 [Mass/Vol] 2.02 ng/dL High 0.80-1.80 [facility] Comment on above: Performed By: #### L [id number] ####COMPUNET, TSH Qn 0.060 MICRO IU/ML Low 0.400-4.50 0 [facility] Comment on above: Performed By: #### L [id number] ####COMPUNET, Progress Noteson 09-23-2018 Progress Notes Encounter Department : [facility] Progress Notes by Debbie Khan MD at 09/23/2018 9:53 AM Author: TARA Marieervice: (none)Author Type: Physician Filed: 09/23/2018 9:54 AMEncounter Date: 09/18/2018Status: Signed Business Office Technology Instructor: Debbie Khan MD (Physician) x [facility] Progress Noteson 08-19-2018 Progress Notes Encounter Department : [facility] Progress Notes by RENÉ Trejo at 08/19/2018 2:15 PM Author: Preeti Romero CCMAService: (none)Author Type: Certified Clinical Air Control Electronics Operator Filed: 08/19/2018 2:56 PMEncounter Date: 08/19/2018Status: Signed Business Office Technology Instructor: RENÉ Trejo (Certified Clinical Air Control Electronics Operator) Pt is here for a follow up on chronic meds had fasting labs 08/15/18 Pt is currently on Percocet 10 325 one tab q 4 times a day some days 5 tabs last dose was this afternoon States she has had an increase in fatigue States has not checked her BP [facility] Progress Notes Encounter Department : [facility] Progress Notes by Debbie Khan MD at 08/19/2018 2:15 PM Author: TARA Marieervice: (none)Author Type: Physician Filed: 08/19/2018 2:56 PMEncounter Date: 08/19/2018Status: Signed Business Office Technology Instructor: Debbie Khan MD (Physician) Assessment/Plan: ICD-10-CM 1.Acquired hypothyroidism-well controlled but may need recheck in 2 mksrutR41.9TSH+Free T4 2.Environmental allergies-zvieecU23.09flu ticasone (FLONASE) 50 mcg/actuation nasal spray 3.Essential hypertension-iudqafK65mla roCHLOROthiazide (HYDRODIURIL) 50 mg tablet lisinopril (PRINIVIL,ZESTRIL) 40 mg tablet 4.Lumbar spondylosis-[place] and [facility] is consistent. Chronic Controlled Substance Contract and Risks signed and scanned into chart, with copy given to patient. Patient has given verbal understanding. Chronic pain disorder and pain clinic options discussed. Patient has good analgesic effect with pain medications. Patient has improved activity with pain medications. Patient has no adverse effects related to the use of pain medications. There are no compliance issues or aberrancy indicators with the use of pain medications. No Urine Drug Screen today. 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 myelopathy-as xobugA19.26tiZANidine (ZANAFLEX) 4 mg tablet 7.DDD (degenerative disc disease), lumbar-as zhbftS64.36tiZANidine (ZANAFLEX) 4 mg tablet 8.Depression, unspecified depression type-stable, would like to consider weaning from Wellbutrin in the future.F32.9venlafaxine (EFFEXOR-XR) 150 mg 24 hr capsule 9.Anxiety-cont WveltnlC77.9venlafaxine (EFFEXOR-XR) 150 mg 24 hr capsule 10.Malignant neoplasm of female breast, unspecified estrogen receptor status, unspecified laterality, unspecified site of breast (HCC)C50.919oxyCODONE-oma taminophen (PERCOCET) 10-325 mg tablet As above.oxyCODONE-acetamino phen (PERCOCET) 10-325 mg tablet oxyCODONE-acetaminophen (PERCOCET) 10-325 mg tablet Hypothyroid-slightly high but no side effects, wait 1-2 months and recheck, lab sheet given today PHYSICAL EXAM: VITALS: Vitals: 08/19/18 1417 BP:104/74 Resp:15 Weight:174 lb (78.9 kg) Height:5' 3 (1.6 m) SUBJECTIVE: Ora Adams is a 47 y.o. female who presents with complaints of pain still. Working 50-60 hours a week which does not help. Oncology recommends she get her ovaries taken out, they had to stop tamoxifen for 3 weeks. Pain is worse with increased work load, but has no job right now and has to work more. Thinks she will want to wean from wellbutrin in the future but not now. Chronic conditions are all stable. Pt denies CP or SOB or GRAFF or increased swelling in legs. Pt states they are tolerating all medications well. Thyroid slightly high on last labs, but totally asx. @ENOTES@ CHIEF COMPLAINT: Chief Complaint Patient presents with -Thyroid Problem -Hypertension -Pain MEDICATIONS Current Outpatient Prescriptions on File Prior to Visit MedicationSigDispenseRefi ll -[DISCONTINUED] albuterol (PROVENTIL HFA; VENTOLIN HFA;PROAIR HFA) 90 mcg/actuation inhalerInhale 2 puffs into the lungs every 6 hours as needed for Wheezing.3 Inhaler3 -[DISCONTINUED] aluminum chloride (DRYSOL) 20 % external solutionApply topically at bedtime.180 mL3 -[DISCONTINUED] buPROPion (WELLBUTRIN XL) 150 mg 24 hr tabletTake 1 tablet by mouth daily.90 tablet3 -[DISCONTINUED] fluticasone (FLONASE) 50 mcg/actuation nasal sprayPLACE TWO SPRAYS IN EACH NOSTRIL ONCE DAILY3 Bottle3 -[DISCONTINUED] hydroCHLOROthiazide (HYDRODIURIL) 50 mg tabletTake 2 tablets by mouth daily.180 tablet1 -levothyroxine (SYNTHROID, LEVOXYL) 137 mcg tabletTake 137 mcg by mouth daily.30 tablet3 -[DISCONTINUED] lisinopril (PRINIVIL,ZESTRIL) 40 mg tabletTake 1 tablet by mouth daily.30 tablet2 -[DISCONTINUED] omeprazole (PRILOSEC) 40 mg delayed-release capsuleTake 1 capsule by mouth daily.90 capsule3 -ondansetron (ZOFRAN-ODT) 8 mg disintegrating tabletTake 1 tablet by mouth every 8 hours as needed for Nausea.60 tablet2 -[DISCONTINUED] oxyCODONE-acetaminophen (PERCOCET) 10-325 mg tabletTake 1 tablet by mouth every 4 hours as needed for Pain.180 tablet0 -polyethylene glycol (MIRALAX) 17 gram packetTake 17 g by mouth. -[DISCONTINUED] potassium chloride (KLOR-CON M) 20 mEq extended release tabletTake 20 mEq by mouth 2 times daily. -[DISCONTINUED] tamoxifen (SOLTAMOX) 20 mg tabletTake 20 mg by mouth. -[DISCONTINUED] tiZANidine (ZANAFLEX) 4 mg tabletTake 1 tablet by mouth every 6 hours as needed for Muscle spasms.360 tablet3 -[DISCONTINUED] torsemide (TORSEMIDE) 10 mg tabletTake 1 tablet by mouth 2 times daily.180 tablet3 -[DISCONTINUED] venlafaxine (EFFEXOR-XR) 150 mg 24 hr capsuleTake 1 capsule by mouth daily.30 capsule3 No current facility-administered medications on file prior to visit. ALLERGIES: Allergies AllergenReactions -LinezolidAnaphylaxis -Erythromycin -Levaquin [Levofloxacin]Myalgia -Penicillins -Sulfa (Sulfonamide Antibiotics) -VancomycinItching and Other (See Comments) Electronically signed by: DEBBIE KHAN MD 08/19/2018 HPI Review of Systems Constitutional: Negative for activity change, appetite change, fatigue and fever. HENT: Negative for congestion, postnasal drip and sinus pressure. Eyes: Negative for visual disturbance. Respiratory: Negative for chest tightness and shortness of breath. Cardiovascular: Positive for chest pain. Negative for palpitations and leg swelling. Gastrointestinal: Negative for abdominal distention and abdominal pain. Genitourinary: Negative for difficulty urinating and dysuria. Breast pain b/l Musculoskeletal: Positive for back pain. Negative for arthralgias and myalgias. Skin: Negative for color change. Neurological: Negative for dizziness and headaches. Hematological: Positive for adenopathy. Does not bruise/bleed easily. Psychiatric/Behavioral: Negative for behavioral problems and dysphoric mood. The patient is not nervous/anxious. Objective: Physical Exam Constitutional: She is oriented to person, place, and time. Vital signs are normal. She appears well-developed and well-nourished. overweight HENT: Head: Normocephalic and atraumatic. Right Ear: External ear normal. Left Ear: External ear normal. Nose: Nose normal. Eyes: Pupils are equal, round, and reactive to light. Conjunctivae are normal. Right eye exhibits no discharge. Left eye exhibits no discharge. Neck: Neck supple. No JVD present. Cardiovascular: Normal rate, regular rhythm and normal heart sounds. Pulmonary/Chest: Effort normal and breath sounds normal. She has no wheezes. Abdominal: Soft. Bowel sounds are normal. She exhibits no distension. There is no tenderness. Musculoskeletal: Normal range of motion. She exhibits tenderness (chronic baseline back pain). She exhibits no edema. Lymphadenopathy: She has no cervical adenopathy. Neurological: She is alert and oriented to person, place, and time. Skin: Skin is warm and dry. No rash noted. No erythema. Psychiatric: She has a normal mood and affect. Her behavior is normal. Nursing note and vitals reviewed. All pertinent side effects, risks, benefits and precautions of suggested treatments were discussed in detail. Ms. Adams understands and agrees with above treatment plan. Normal [facility] Progress Notes Encounter Department : [facility] Progress Notes by RENÉ Trejo at 08/19/2018 2:15 PM Author: Bailey Trejo: -Author Type: Certified Clinical Air Control Electronics Operator Filed: 01/04/2019 8:43 AMEncounter Date: 08/19/2018Status: Signed Business Office Technology Instructor: RENÉ Trejo (Certified Clinical Air Control Electronics Operator) Please advise on results Normal [facility] Progress Notes Encounter Department : [facility] Progress Notes by Melvi Maciel PA-C at 08/19/2018 2:15 PM Author: Maritza Obrienrvice: -Author Type: Physician Kitchen Helper Filed: 01/04/2019 8:50 AMEncounter Date: 08/19/2018Status: Signed Business Office Technology Instructor: Melvi Maciel PA-C (Physician Kitchen Helper) Please have pt. Make an appointment to go over these results. Thank you Normal [facility] Progress Notes Encounter Department : [facility] Progress Notes by RENÉ Trejo at 08/19/2018 2:15 PM Author: Bailey Trejo: -Author Type: Certified Clinical Air Control Electronics Operator Filed: 01/04/2019 9:34 AMEncounter Date: 08/19/2018Status: Signed Business Office Technology Instructor: RENÉ Trejo (Certified Clinical Air Control Electronics Operator) Pt est with new pcp tomorrow labs faxed to new pcp office Normal [facility] B12, FOLATEon 08-15-2018 Cobalamin (Vitamin B12) [Mass/Vol] 809 pg/mL Normal 200-1100 [facility] Comment on above: Performed By: #### L AB293, NBN979, LAB17, LAB18, ONL4155, USL6583, YLL144 #### COMPUNET , FOLATE 3.8 NG/ML Low [facility] Comment on above: Result Comment: REFE RENCE RANGE: LOW: < 3.4 BORDERLINE: 3.4-5.4 NORMAL: > 5.4 Performed By: #### L AB293, DZF336, LAB17, LAB18, OTK5922, GLK7476, QSU200 #### COMPUNET , CBC W/DIFFon 08-15-2018 BASOPHILS ABS AUTO 0.1 K/MM3 Normal 0.0-0.3 [facility] Comment on above: Performed By: #### L AB293, DAS512, LAB17, LAB18, UMO9630, ACQ1819, RKW143 #### COMPUNET , Basophils/100 WBC (Bld) 1.2 % Normal 0.0-2.0 [facility] Comment on above: Performed By: #### L AB293, GNV518, LAB17, LAB18, SVY3762, AEZ4550, PBO110 #### COMPUNET , Eosinophils (Bld) [#/Vol] 0.2 10*3/uL Normal 0.0-0.6 [facility] Comment on above: Performed By: #### L AB293, TTV997, LAB17, LAB18, JEL9970, DJJ4020, OZJ010 #### COMPUNET , Eosinophils/100 WBC (Bld) 3.2 % Normal 0.0-7.0 [facility] Comment on above: Performed By: #### L AB293, SGY396, LAB17, LAB18, SFB2997, BWX4277, XTB813 #### COMPUNET , Erythrocyte distribution width (RBC) [Ratio] 14.8 % Normal 9.0-15.0 [facility] Comment on above: Performed By: #### L AB293, WQK313, LAB17, LAB18, JUM9626, JNO4602, HGH368 #### COMPUNET , Hematocrit (Bld) [Volume fraction] 45.3 % Normal 35.0-46.0 [facility] Comment on above: Performed By: #### L AB293, ZEX924, LAB17, LAB18, NFX9684, IQN3060, FLM559 #### COMPUNET , Hemoglobin (Bld) [Mass/Vol] 14.9 g/dL Normal 12.0-15.6 [facility] Comment on above: Performed By: #### L AB293, UZD528, LAB17, LAB18, HKA1659, TPW4308, OKN158 #### COMPUNET , Lymphocytes (Bld) [#/Vol] 1.4 10*3/uL Normal 0.9-4.1 [facility] Comment on above: Performed By: #### L AB293, KYT791, LAB17, LAB18, DHB8916, KRY1590, AWQ595 #### COMPUNET , Lymphocytes/100 WBC (Bld) 24.4 % Normal 18.0-47.0 [facility] Comment on above: Performed By: #### L AB293, FVM935, LAB17, LAB18, YTU2714, YXF8627, CVK206 #### COMPUNET , MCH (RBC) [Entitic mass] 31.4 pg Normal 27.0-33.0 [facility] Comment on above: Performed By: #### L AB293, RYX772, LAB17, LAB18, DNE9847, QAU4337, OUV332 #### COMPUNET , MCHC (RBC) [Mass/Vol] 32.8 g/dL Normal 32.0-36.0 [facility] Comment on above: Performed By: #### L AB293, ZNB934, LAB17, LAB18, AUF7180, FLH0524, HXZ849 #### COMPUNET , MCV (RBC) [Entitic vol] 95.5 fL Normal 80.0-100.0 [facility] Comment on above: Performed By: #### L AB293, HYW317, LAB17, LAB18, EKI0436, FCV3905, DEO228 #### COMPUNET , Monocytes (Bld) [#/Vol] 0.5 10*3/uL Normal 0.2-1.1 [facility] Comment on above: Performed By: #### L AB293, HEG346, LAB17, LAB18, KOF3953, CDP7824, ZCK800 #### COMPUNET , Monocytes/100 WBC (Bld) 9.0 % Normal 0-14.0 [facility] Comment on above: Performed By: #### L AB293, FHB807, LAB17, LAB18, EJG0609, QGY1855, IQK636 #### COMPUNET , NEUTROPHIL ABS AUTO 3.7 K/MM3 Normal 1.5-7.8 [facility] Comment on above: Performed By: #### L AB293, XGL986, LAB17, LAB18, GEI0717, NUE0177, TUJ461 #### COMPUNET , Neutrophils/100 WBC (Bld) 62.2 % Normal 40.0-75.0 [facility] Comment on above: Performed By: #### L AB293, KTK121, LAB17, LAB18, GMR2299, LZZ6703, JUA980 #### COMPUNET , Platelets (Bld) [#/Vol] 378 10*3/uL Normal 130-400 [facility] Comment on above: Performed By: #### L AB293, VBW346, LAB17, LAB18, DJO2670, MNE3091, HTG929 #### COMPUNET , RBC (Bld) [#/Vol] 4.74 M/MM3 Normal 3.90-5.20 [facility] Comment on above: Performed By: #### L AB293, QTB638, LAB17, LAB18, QVO0038, UMI0526, KCU927 #### COMPUNET , WBC (Bld) [#/Vol] 5.9 10*3/uL Normal 3.8-10.8 [facility] Comment on above: Performed By: #### L AB293, YFR649, LAB17, LAB18, XMS3277, EKX3838, NHR782 #### COMPUNET , COMPREHENSIVE METABOLIC PANE [place] 08-15-2018 Albumin [Mass/Vol] 4.4 g/dL Normal 3.5-5.2 [facility] Comment on above: Performed By: #### L AB293, LSB827, LAB17, LAB18, CGK1189, UWB9583, DMP218 #### COMPUNET , Albumin/Globulin [Mass ratio] 1.8 (CALC) Normal 0.8-2.6 [facility] Comment on above: Performed By: #### L AB293, QFI181, LAB17, LAB18, NRL5054, XNU3378, XDZ118 #### COMPUNET , ALP [Catalytic activity/Vol] 76 U/L Normal 23-144 [facility] Comment on above: Performed By: #### L AB293, WHF132, LAB17, LAB18, REH8070, QYT3595, WUG437 #### COMPUNET , ALT [Catalytic activity/Vol] 23 U/L Normal 0-60 [facility] Comment on above: Performed By: #### L AB293, LJM428, LAB17, LAB18, XCP8968, ALM9050, FZI075 #### COMPUNET , AST [Catalytic activity/Vol] 27 U/L Normal 0-46 [facility] Comment on above: Performed By: #### L AB293, RVS609, LAB17, LAB18, JHM2211, KSR7317, JWC602 #### COMPUNET , Bilirubin [Mass/Vol] 1.0 mg/dL Normal 0.0-1.2 [facility] Comment on above: Performed By: #### L AB293, JGW929, LAB17, LAB18, AXO7689, KPO1783, TJQ075 #### COMPUNET , Calcium [Mass/Vol] 9.9 mg/dL Normal 8.5-10.5 [facility] Comment on above: Performed By: #### L AB293, MGK932, LAB17, LAB18, MTX4959, LWI6226, FCY563 #### COMPUNET , Chloride [Moles/Vol] 98 mmol/L Normal 96-110 [facility] Comment on above: Performed By: #### L AB293, CHV812, LAB17, LAB18, ELC3979, YIH2310, UDL683 #### COMPUNET , CO2 [Moles/Vol] 29 mmol/L Normal 19-32 [facility] Comment on above: Performed By: #### L AB293, TRG331, LAB17, LAB18, UIJ5968, QDT7873, YKB705 #### COMPUNET , Creatinine [Mass/Vol] 0.9 mg/dL Normal [facility] Comment on above: Result Comment: REFE RENCE RANGE: MALE: 0.5-1.4 FEMALE: 0.5-1.2 Performed By: #### L AB293, NYA956, LAB17, LAB18, CUO3506, ANT1098, SZN933 #### COMPUNET , GFR/1.73 sq M predicted among non-blacks MDRD (S/P/Bld) [Vol rate/Area] 75 ML/MIN/1.73M2 Normal [facility] Comment on above: Result Comment: If t he patient is -English, please multiply this result by 1.159. This result has been calculated assuming the patient is Non- . REFERENCE RANGE: > OR = 60 Performed By: #### L AB293, UKI550, LAB17, LAB18, YPB4604, VPK0155, JQJ551 #### COMPUNET , Globulin (S) [Mass/Vol] 2.4 GM/DL (CALC) Normal 1.9-3. 6 [facility] Comment on above: Performed By: #### L AB293, PIX505, LAB17, LAB18, WDL3957, WOB0322, YFO560 #### COMPUNET , Glucose [Mass/Vol] 92 mg/dL Normal [facility] Comment on above: Result Comment: The [place] [employer] recommends the following guidelines: < 100 MG/DL: Normal Fasting Glucose 100-125 MG/DL: Impaired Fasting Glucose > 125 MG/DL: Provisional diagnosis of diabetes ADA Workgroup Report, Diabetic Care, volume 40, July 2016 Performed By: #### L AB293, HCX069, LAB17, LAB18, PQI2838, YGS6971, DPH977 #### COMPUNET , Potassium [Moles/Vol] 3.9 mmol/L Normal 3.4-5.3 [facility] Comment on above: Performed By: #### L AB293, OEF869, LAB17, LAB18, GPM5714, ZJT3598, MNH052 #### COMPUNET , Protein [Mass/Vol] 6.8 g/dL Normal 6.0-8.3 [facility] Comment on above: Performed By: #### L AB293, PFI393, LAB17, LAB18, DUK6547, HGS8812, GWZ749 #### COMPUNET , Sodium [Moles/Vol] 142 mmol/L Normal 135-148 [facility] Comment on above: Performed By: #### L AB293, GHL600, LAB17, LAB18, FAF9490, QQE4033, USM648 #### COMPUNET , Urea nitrogen [Mass/Vol] 6 mg/dL Normal 3-29 [facility] Comment on above: Performed By: #### L AB293, IQF204, LAB17, LAB18, SPG6822, EHF4967, HQZ327 #### COMPUNET , Urea nitrogen/Creatinine [Mass ratio] 7 (CALC) Normal 7-25 [facility] Comment on above: Performed By: #### L AB293, GQH100, LAB17, LAB18, ZCJ6004, MVO3313, TTR645 #### COMPUNET , LIPID PANELon 08-15-2018 Cholesterol [Mass/Vol] 170 mg/dL Normal [facility] Comment on above: Result Comment: TONY RABLE: <200 MG/DL BORDERLINE: 200-239 MG/DL HIGHER RISK: >239 MG/DL Performed By: #### L AB293, FTH285, LAB17, LAB18, PDH2037, BQK4862, AWD560 #### COMPUNET , Cholesterol in HDL [Mass/Vol] 61 mg/dL Normal [facility] Comment on above: Result Comment: TONY RABLE: > OR = 60 MG/DL HIGHER RISK: < 40 MG/DL Performed By: #### L AB293, LEN771, LAB17, LAB18, DZT9380, KDU0005, HLP735 #### COMPUNET , Cholesterol in LDL [Mass/Vol] 95 MG/DL (CALC) Normal [facility] Comment on above: Result Comment: OPTI MAL: <100 MG/DL NEAR/ABOVE OPTIMAL: 100-129 MG/DL BORDERLINE HIGH: 130-159 MG/DL HIGH: 160-189 MG/DL VERY HIGH: > OR = 190 MG/DL Performed By: #### L AB293, MCU845, LAB17, LAB18, UFX7887, QFW1667, RMJ957 #### COMPUNET , Triglyceride [Mass/Vol] 72 mg/dL Normal [facility] Comment on above: Result Comment: NORM AL: <150 MG/DL BORDERLINE HIGH: 150-199 MG/DL HIGH: 200-499 MG/DL VERY HIGH: > OR = 500 MG/DL Performed By: #### L AB293, WJD667, LAB17, LAB18, NYN2933, ITA0806, OTS659 #### COMPUNET , VLDL CHOLESTEROL 14 MG/DL (CALC) Normal 4-32 [facility] Comment on above: Performed By: #### L AB293, OJW730, LAB17, LAB18, REL6842, CBI2836, LAT671 #### COMPUNET , TSH+FREE T4on 08-15-2018 Free T4 [Mass/Vol] 2.08 ng/dL High 0.80-1.80 [facility] Comment on above: Performed By: #### L AB293, QJD932, LAB17, LAB18, XBS8410, JIZ4070, QED062 #### COMPUNET , TSH Qn 2.690 MICRO IU/ML Normal 0.400-4.50 0 [facility] Comment on above: Performed By: #### L AB293, ORK182, LAB17, LAB18, WHX6170, GVN6481, SUW561 #### COMPUNET , URINALYSIS W/REFLEX MICROSCO PYon 08-15-2018 ALBUMIN, U Negative Normal NEGATIVE [facility] Comment on above: Performed By: #### L AB293, UHE573, LAB17, LAB18, YNN1818, HHO0742, NKF587 #### COMPUNET , Appearance (U) HAZY Abnormal CLEAR [facility] Comment on above: Performed By: #### L AB293, THM110, LAB17, LAB18, KML1659, WOL2382, GGQ423 #### COMPUNET , BILIRUBIN, UA Negative Normal NEGATIVE [facility] Comment on above: Performed By: #### L AB293, ZBA710, LAB17, LAB18, KVT0169, DII5655, BPU847 #### COMPUNET , BLOOD, UA Negative Normal NEGATIVE [facility] Comment on above: Performed By: #### L AB293, JIQ728, LAB17, LAB18, UBB3391, JJS7428, UTL292 #### COMPUNET , Color (U) YELLOW Normal YELLOW [facility] Comment on above: Performed By: #### L AB293, MTM999, LAB17, LAB18, EXM4841, CBM3528, JBC447 #### COMPUNET , GLUCOSE, UA Negative Normal NEGATIVE [facility] Comment on above: Performed By: #### L AB293, RLQ083, LAB17, LAB18, JTX8327, RFO0599, NQV733 #### COMPUNET , KETONES UA TRACE Abnormal NEGATIVE [facility] Comment on above: Performed By: #### L AB293, BVD672, LAB17, LAB18, NLO1307, WJB3599, SJQ871 #### COMPUNET , Leukocyte esterase Test strip Ql (U) Negative Normal NEGATIVE [facility] Comment on above: Performed By: #### L AB293, DVM188, LAB17, LAB18, LEE4464, UEA6142, GWK768 #### COMPUNET , Nitrite Ql (U) Negative Normal NEGATIVE [facility] Comment on above: Performed By: #### L AB293, XEA612, LAB17, LAB18, KSX7548, MKM7844, GEV155 #### COMPUNET , PH, UA 8.0 Normal 4.5-8.0 [facility] Comment on above: Performed By: #### L AB293, EXF195, LAB17, LAB18, FOZ1576, NUA8634, CYE276 #### COMPUNET , Specific gravity (U) [Rel density] 1.010 Normal 1.005-1.03 0 [facility] Comment on above: Performed By: #### L AB293, OUV910, LAB17, LAB18, SXR6029, GLQ6481, AAB917 #### COMPUNET , UROBILINOGEN UA <2 Normal 0-2 [facility] Comment on above: Performed By: #### L AB293, YFW356, LAB17, LAB18, LZK3575, ELY6571, SRP185 #### COMPLALY , VITAMIN D, 25-HYDROXYon 07-27 VITAMIN D 25-HYDROXY 30 NG/ML Normal 20-100 [facility] Comment on above: Result Comment: Ther apy is based on the measurement of Total 25-OHD with levels < 20 ng/mL indicative of Vitamin D deficiency while levels between 20 ng/mL and 30 ng/mL suggest insufficiency. Optimal levels are > 30 ng/mL. If the patient is being treated with Vitamin D2, the Vitamin D fractionation assay (08074) should be used to monitor the compliance with and success of the treatment. Performed By: #### L AB293, ORR100, LAB17, LAB18, HMT1570, QKI0149, MFC455 #### JERALD , Progress Noteson 06-07-2018 Progress Notes Encounter Department : [facility] Progress Notes by Debbie Khan MD at 06/07/2018 10:00 AM Author: Debbie Khan MDService: (none)Author Type: Physician Filed: 06/10/2018 9:14 AMEncounter Date: 06/07/2018Status: Signed Business Office Technology Instructor: Debbie Khan MD (Physician) Assessment/Plan: ICD-10-CM 1.Essential hypertension-elevated, made changes today and pt will call w BP [id number] hiazide (HYDRODIURIL) 50 mg tablet 2.Lower extremity edema-stable, pleased lately with how well it is doing.R60.0 3.Dyspnea on exertion-vxhqccfiS06.09 4.Malignant neoplasm of female breast, unspecified estrogen receptor status, unspecified laterality, unspecified site of breast (HCC)[facility] and [facility] is consistent. Chronic Controlled Substance Contract and Risks signed and scanned into chart, with copy given to patient. Patient has given verbal understanding. Chronic pain disorder and pain clinic options discussed. Patient has good analgesic effect with pain medications. Patient has improved activity with pain medications. Patient has no adverse effects related to the use of pain medications. There are no compliance issues or aberrancy indicators with the use of pain medications. No Urine Drug Screen today. Sees Cancer doc and surgeon when she gets insurance [id number]-oma taminophen (PERCOCET) 10-325 mg tablet DISCONTINUED: oxyCODONE-acetaminophen (PERCOCET) 10-325 mg tablet 5.Acquired hypothyroidism-asxE03.9 6.Vitamin D deficiency-asxE55.9 7.Lumbar spondylosis-chronic pain. Has seen pain mgmtM47.816 8.Lumbar facet orplxnhmzwdK11.816 9.Lumbar disc displacement without vbaqzieczyT43.26 10.DDD (degenerative disc disease), agaygwS64.36 PHYSICAL EXAM: VITALS: Vitals: 06/07/18 1010 BP:160/90 Pulse:98 Resp:15 Temp:98.3 ?F (36.8 ?C) TempSrc:Oral Height:5' 3 (1.6 m) SUBJECTIVE: Ora Adams is a 47 y.o. female who presents with complaints of regular follow up. Has no insurance right now and has not seen cancer doc or surgeon recently. Had double mastectomy. Chronic conditions are all stable. Pt denies CP or SOB or GRAFF or increased swelling in legs. Pt states they are tolerating all medications well. Needs pain meds refills, breasts are still more tender than she expected. Originally took pain meds for her back and saw pain mgmt then. @ENOTES@ CHIEF COMPLAINT: Chief Complaint Patient presents with -Hypertension -Pain -Thyroid Problem MEDICATIONS Current Outpatient Prescriptions on File Prior to Visit MedicationSigDispenseRefi ll -albuterol (PROVENTIL HFA; VENTOLIN HFA;PROAIR HFA) 90 mcg/actuation inhalerInhale 2 puffs into the lungs every 6 hours as needed for Wheezing.3 Inhaler3 -aluminum chloride (DRYSOL) 20 % external solutionApply topically at bedtime.180 mL3 -diazePAM (VALIUM) 5 mg tabletTake 2 tablets by mouth at bedtime.60 tablet0 -fluticasone (FLONASE) 50 mcg/actuation nasal sprayPLACE TWO SPRAYS IN EACH NOSTRIL ONCE DAILY3 Bottle3 -levothyroxine (SYNTHROID, LEVOXYL) 137 mcg tabletTake 137 mcg by mouth daily.30 tablet3 -lisinopril (PRINIVIL,ZESTRIL) 40 mg tabletTake 1 tablet by mouth daily.30 tablet2 -omeprazole (PRILOSEC) 40 mg delayed-release capsuleTake 1 capsule by mouth daily.90 capsule3 -ondansetron (ZOFRAN-ODT) 8 mg disintegrating tabletTake 1 tablet by mouth every 8 hours as needed for Nausea.60 tablet2 -polyethylene glycol (MIRALAX) 17 gram packetTake 17 g by mouth. -potassium chloride (KLOR-CON M) 20 mEq extended release tabletTake 20 mEq by mouth 2 times daily. -tamoxifen (SOLTAMOX) 20 mg tabletTake 20 mg by mouth. -tiZANidine (ZANAFLEX) 4 mg tabletTake 1 tablet by mouth every 6 hours as needed for Muscle spasms.360 tablet3 -torsemide (TORSEMIDE) 10 mg tabletTake 1 tablet by mouth 2 times daily.180 tablet3 -venlafaxine (EFFEXOR-XR) 150 mg 24 hr capsuleTake 1 capsule by mouth daily.30 capsule3 No current facility-administered medications on file prior to visit. ALLERGIES: Allergies AllergenReactions -LinezolidAnaphylaxis -Erythromycin -Levaquin [Levofloxacin]Myalgia -Penicillins -Sulfa (Sulfonamide Antibiotics) -VancomycinItching and Other (See Comments) Electronically signed by: DEBBIE KHAN MD 06/10/2018 HPI Review of Systems Constitutional: Negative for activity change, appetite change, fatigue and fever. HENT: Negative for congestion, postnasal drip and sinus pressure. Eyes: Negative for visual disturbance. Respiratory: Negative for chest tightness and shortness of breath. Cardiovascular: Negative for chest pain, palpitations and leg swelling. Gastrointestinal: Negative for abdominal distention and abdominal pain. Genitourinary: Negative for difficulty urinating and dysuria. Breast pain b/l Musculoskeletal: Negative for arthralgias and myalgias. Skin: Negative for color change. Neurological: Negative for dizziness and headaches. Hematological: Does not bruise/bleed easily. Psychiatric/Behavioral: Negative for behavioral problems and dysphoric mood. The patient is not nervous/anxious. Objective: Physical Exam Constitutional: She is oriented to person, place, and time. She appears well-developed and well-nourished. HENT: Head: Normocephalic and atraumatic. Right Ear: External ear normal. Left Ear: External ear normal. Nose: Nose normal. Eyes: Pupils are equal, round, and reactive to light. Neck: Neck supple. Cardiovascular: Normal rate, regular rhythm and normal heart sounds. Pulmonary/Chest: Effort normal and breath sounds normal. Abdominal: Soft. Bowel sounds are normal. She exhibits no distension. Musculoskeletal: She exhibits no edema. Neurological: She is alert and oriented to person, place, and time. Skin: Skin is warm and dry. No rash noted. No erythema. Psychiatric: She has a normal mood and affect. Her behavior is normal. All pertinent side effects, risks, benefits and precautions of suggested treatments were discussed in detail. Ms. Adams understands and agrees with above treatment plan. [facility] Progress Notes Encounter Department : [facility] Progress Notes by RENÉ Trejo at 06/07/2018 10:00 AM Author: Liban Trejovice: (none)Author Type: Certified Clinical Air Control Electronics Operator Filed: 06/10/2018 9:14 AMEncounter Date: 06/07/2018Status: Signed Business Office Technology Instructor: RENÉ Trejo (Certified Clinical Air Control Electronics Operator) Pt is here for a follow up on pain HTN and thyroid Pt is not fasting States BP was running high Would like to discuss her water pill [facility] GENETICS MISCELLANEOUS DNA T ESTon 08-17-2017 GENETICS RESULT SEE ELECTRONIC REPOR T IN [address] OR CALL GENETICS AT [phone] Normal [facility] Comment on above: Result Comment: [facility],[address], [place] [address] Performed By: #### G MISC1 ####[facility] [place] [id number] TEST : please draw 5 Normal [facility] Comment on above: Result Comment: 10 m l of blood in lavender EDTA for send out to invitae for stat breast panel Performed By: #### G MISC1 ####[facility] [place] [id number] MAMMO DIAGNOSTIC WITH BRENDA B ILATERALon 08-12-2017 MAMMO DIAGNOSTIC WITH BRENDA BILATERAL EXAM: MAMMO DIAGNOSTIC WITH BRENDA BILATERAL, 08/12/2017 10:53 AMCLINICAL HISTORY: The patient is a 46-year-old female with recent diagnosis ofleft breast invasive lobular carcinoma, invasive ductal carcinoma and LCISfollowing left breast ultrasound-guided biopsy at the 6:00 position 6 cm fromthe nipple. Patient also underwent a benign left ultrasound guided axillarybiopsy as well as a benign left stereotactic biopsy. The patient now presentsfor repeat bilateral mammogram and second opinion.COMPARISON: Bilateral mammogram July 16, 2017, December 04, 2013, diagnosticviews of the left breast July 23, 2017, left breast ultrasound-guidedbiopsy July 23, 2017, left breast ultrasound guided biopsy of the breastand axilla July 29, 2017 and left breast stereotactic biopsy July 29, 2017as well as postbiopsy mammogram July 29, 2017.TECHNIQUE:2-D MLO and CC views were obtained of the bilateral breasts. 3-D MLO and CCdigital tomosynthesis images were also acquired. Computer aided detection wasutilized.FINDINGS: The breasts are heterogeneously dense, which may obscure small masses.Scattered benign-appearing calcifications are noted bilaterally. A mini Corkbiopsy clip demarcates the known malignancy within the upper outer quadrantleft breast along the 2:00 axis approximately 7.5 cm from the nipple.Associated postbiopsy changes are present including a 1.5 cm hematoma. Abuckle clip is also identified along the 2-3 o'clock axis left breastapproximately 7 cm from the nipple with associated postbiopsy changes. Acoil-shaped clip is immediately adjacent to a lymph node projecting over theleft axilla. No additional suspicious masses, areas of architecturaldistortion or microcalcifications appreciated within the left breast. Nodiscrete mass, area of architectural distortion or suspiciousmicrocalcificat ions appreciated within the right breast. IMPRESSION:Appropriate placement of the mini Cork biopsy clip within the known malignancywithin the upper outer quadrant left breast. No additional suspicious findingidentified within either breast. Given the patient's young age, dense breastparenchyma and pathology consider further evaluation with bilateral MRI.BI-RADS: 6: Known biopsy proven malignancyRecommendation: Surgical excision when clinically appropriate.Recommendatio n Laterality: Left Abnormal [facility] Surgical Pathologyon 018 Surgical Pathology Surgical Pathology ReportPatient Name: ORA ADAMS Rec #: [id number] Physician: ABEL HOWARD--- Clinical History ---Please review breast slides from outside institution. Dr. Howard. Preoperative Diagnosis: left breast stereotactic biopsy indeterminatecalcificatio ns; left breast ultrasound biopsy 2:00 suspicious mass; leftaxilla ultrasound biopsy suspicious node. ---Final Pathologic Diagnosis---Outside slides:[id number] (07/29/17)1. Left breast, stereotactic biopsy: - Columnar cell changes, columnar cell hyperplasia, focal stromalfibrosis/elastosis , and cyst formation- Microcalcifications associated with benign glands and ductalepithelium2. Left breast, 2 o'clock, core biopsy: - Invasive ductal carcinoma, with tubular features, grade 1(score: tubule 1, nuclear 1, mitotic 1), 0.3 cm in greatest length- Invasive lobular carcinoma, grade 1 (score: tubule 3, nuclear 1,mitotic 1), 0.15 cm in greatest length - Lobular carcinoma in situ (LCIS) Manual immunohistochemical quantification using stains performed atthe outside institution (invasive ductal carcinoma):Estrogen Receptor: Positive (95%, strong intensity)Progesterone Receptor: Positive (50%, moderate intensity)HER2: Negative (Score 1+)HER2 FISH: Negative (ratio: 1, HER2/cell: not provided) per outside reportSubmitted controls show appropriate reactivity.Manual immunohistochemical quantification [facility] (invasive lobular carcinoma):Estrogen Receptor: Positive (95%, strong intensity)Progesterone Receptor: Positive (90%, strong intensity)HER2: Negative (Score 1+)HER2 FISH: Negative (ratio: 1, HER2/cell: not provided) per outside reportSubmitted controls show appropriate reactivity.3. Left axillary lymph node:- Lymph node tissue, negative for carcinomaComment: Additional submitted immunohistochemical stains support thediagnosis. E-cadherin and p120 show positive membranous reactivity in theinvasive ductal carcinoma, and are negative in the invasive lobularcarcinoma. SMM and CK5/14 are negative in foci of invasive carcinoma, andhighlight myoepithelial cells surrounding foci of LCIS. antonietta/ADENZB01:08/11/2017El ectronically Signed ByKendrick Zuñiga M.D.08/11/2017 17:22:13Professional Interpretation performed at location: [address] [place] [address]---NHTOWNKV(S) RECEIVED:---SCA: 2nd opinion consultation, 1 case---SLIDE/BLOCK DESCRIPTION:---The following material(s) are received from [facility], [address] [place] [address]. [id number] with an identifying pathology report as wellas a copy of the Special Procedure Immunostain Results report: 24 H&Eslide(s) and 9 non-H&E slide(s) which includes the ER, PA, Her-2 miguel angel andthe NEG Her-2-miguel angel slides, labeled [id number]. Outside materials are returned in sixty (60) days under separate cover withour number recorded on them. Normal [facility] Comment on above: Performed By: #### S URGP ####[facility] [place], [place] [address] [address] [place] [id number] Vital Signs Date Time Vital Sign Value Performing Clinician Yana crews 12-20-2024 10:00-0400 Body height 157.48 cm Alirio Chintan STEWARD/STEWARDESS BATH-C Work Phone: [facility] 12-20-2024 10:00-0400 Body mass index (BMI) [Ratio] 33.7 kg/m2 Alirio Chintan STEWARD/STEWARDESS BATH-C Work Phone: [facility] 12-20-2024 10:00-0400 Body weight 83.68 kg Alirio Chintan STEWARD/STEWARDESS BATH-C Work Phone: [facility] 12-20-2024 10:00-0400 Diastolic blood pressure 84 mm[Hg] Alirio Chintan STEWARD/STEWARDESS BATH-C Work Phone: [facility] 12-20-2024 10:00-0400 Heart rate 86 /min Alirio Chintan STEWARD/STEWARDESS BATH-C Work Phone: [facility] 12-20-2024 10:00-0400 Respiratory rate 17 /min Alirio Chintan STEWARD/STEWARDESS BATH-C Work Phone: [facility] 12-20-2024 10:00-0400 SaO2% (BldA) [Mass fraction] 95 % Alirio Chintan STEWARD/STEWARDESS BATH-C Work Phone: [facility] 12-20-2024 10:00-0400 Systolic blood pressure 132 mm[Hg] Alirio Chintan STEWARD/STEWARDESS BATH-C Work Phone: [facility] 10-20-2024 08:24-0400 Diastolic blood pressure 100 mm[Hg] Alirio Chintan MECHANICAL ENGINEERING ADVISOR.ELECTRICAL INTEGRATOR Work Phone: [facility] 10-20-2024 08:24-0400 Systolic blood pressure 130 mm[Hg] Alirio Chintan MECHANICAL ENGINEERING ADVISOR.ELECTRICAL INTEGRATOR Work Phone: [facility] 10-20-2024 08:22-0400 Body mass index (BMI) [Ratio] 33.98 kg/m2 Alirio Chintan MECHANICAL ENGINEERING ADVISOR.ELECTRICAL INTEGRATOR Work Phone: [facility] 10-20-2024 08:22-0400 Body weight 87 kg Alirio Chintan MECHANICAL ENGINEERING ADVISOR.ELECTRICAL INTEGRATOR Work Phone: [facility] 10-20-2024 08:22-0400 Heart rate 90 /min Alirio Chintan MECHANICAL ENGINEERING ADVISOR.ELECTRICAL INTEGRATOR Work Phone: [facility] 10-20-2024 08:22-0400 SaO2% (BldA) [Mass fraction] 97 % Alirio Chintan MECHANICAL ENGINEERING ADVISOR.ELECTRICAL INTEGRATOR Work Phone: [facility] 10-16-2024 10:45-0400 Blood Pressure Cuff Size RUBEN LOPEZ MD [facility] 10-16-2024 10:45-0400 Blood Pressure Location RUBEN LOPEZ MD [facility] 10-16-2024 10:45-0400 Blood Pressure Method RUBEN LOPEZ MD [facility] 10-16-2024 10:45-0400 Body temperature 97.88 [degF] RUBEN LOPEZ MD [facility] 10-16-2024 10:45-0400 Diastolic Blood Pressure Non-Invasive 96 mm[Hg] RUBEN LOPEZ MD [facility] 10-16-2024 10:45-0400 Heart rate 78 /min RUBEN LOPEZ MD [facility] 10-16-2024 10:45-0400 Reason For Taking VItal Signs RUBEN LOPEZ MD [address] [place] [address] 10-16-2024 10:45-0400 Respiratory rate 16 /min RUBEN LOPEZ MD [address] [place] [address] 10-16-2024 10:45-0400 Systolic Blood Pressure Non-Invasive 128 mm[Hg] RUBEN LOPEZ MD [address] [place] [address] 10-16-2024 07:08-0400 Blood Pressure Cuff Size RUBEN LOPEZ MD [address] [place] [address] 10-16-2024 07:08-0400 Blood Pressure Location RUBEN LOPEZ MD [address] [place] [address] 10-16-2024 07:08-0400 Blood Pressure Method RUBEN LOPEZ MD [facility] 10-16-2024 07:08-0400 Body temperature 98.24 [degF] RUBEN LOPEZ MD [address] [place] [address] 10-16-2024 07:08-0400 Diastolic Blood Pressure Non-Invasive 104 mm[Hg] RUBEN LOPEZ MD [address] [place] [address] 10-16-2024 07:08-0400 Heart rate 85 /min RUBEN LOPEZ MD [facility] 10-16-2024 07:08-0400 Reason For Taking VItal Signs RUBEN LOPEZ MD [address] [place] [address] 10-16-2024 07:08-0400 Respiratory rate 16 /min RUBEN LOPEZ MD [facility] 10-16-2024 07:08-0400 Systolic Blood Pressure Non-Invasive 140 mm[Hg] RUBEN LOPEZ MD [facility] 10-16-2024 03:21-0400 Blood Pressure Cuff Size RUBEN LOPEZ MD [address] [place] [address] 10-16-2024 03:21-0400 Blood Pressure Location RUBEN LOPEZ MD [address] [place] [address] 10-16-2024 03:21-0400 Blood Pressure Method RUBEN LOPEZ MD [address] [place] [address] 10-16-2024 03:21-0400 Body temperature 98.24 [degF] RUBEN LOPEZ MD [address] [place] [address] 10-16-2024 03:21-0400 Diastolic Blood Pressure Non-Invasive 92 mm[Hg] RUBEN LOPEZ MD [address] [place] [address] 10-16-2024 03:21-0400 Heart rate 88 /min RUBEN LOPEZ MD [address] [place] [address] 10-16-2024 03:21-0400 Reason For Taking VItal Signs RUBEN LOPEZ MD [address] [place] [address] 10-16-2024 03:21-0400 Respiratory rate 15 /min RUBEN LOPEZ MD [facility] 10-16-2024 03:21-0400 Systolic Blood Pressure Non-Invasive 146 mm[Hg] RUBEN LOPEZ MD [address] [place] [address] 10-14-2024 18:46-0400 Heart rate 90 /min RUBEN LOPEZ MD [facility] 10-14-2024 15:51-0400 Heart rate 92 /min RUBEN LOPEZ MD [facility] 10-14-2024 10:51-0400 Body height 157.5 cm RUBEN LOPEZ MD [facility] 10-14-2024 10:51-0400 Body weight 81.8 kg RUBEN LOPEZ MD [facility] 10-14-2024 10:51-0400 Body weight 32.98 kg/m2 RUBEN LOPEZ MD [facility] 10-14-2024 10:43-0400 Heart rate 90 /min RUBEN LOPEZ MD [facility] 10-14-2024 09:32-0400 Body temperature 98.2 [degF] Alirio Chintan STEWARD/STEWARDESS BATH-C Work Phone: [facility] 10-14-2024 09:32-0400 Diastolic blood pressure 78 mm[Hg] Alirio Chintan STEWARD/STEWARDESS BATH-C Work Phone: [facility] 10-14-2024 09:32-0400 Heart rate 77 /min Alirio Chintan STEWARD/STEWARDESS BATH-C Work Phone: [facility] 10-14-2024 09:32-0400 Respiratory rate 19 /min Alirio Chintan STEWARD/STEWARDESS BATH-C Work Phone: [facility] 10-14-2024 09:32-0400 SaO2% (BldA) [Mass fraction] 95 % Alirio Chintan STEWARD/STEWARDESS BATH-C Work Phone: [facility] 10-14-2024 09:32-0400 Systolic blood pressure 158 mm[Hg] Alirio Chintan STEWARD/STEWARDESS BATH-C Work Phone: [facility] 10-14-2024 02:20-0400 Body height 157.48 cm Alirio Chintan STEWARD/STEWARDESS BATH-C Work Phone: [facility] 10-14-2024 02:20-0400 Body mass index (BMI) [Ratio] 37.5 kg/m2 Alirio Chintan STEWARD/STEWARDESS BATH-C Work Phone: [facility] 10-14-2024 02:20-0400 Body weight 93.2 kg Alirio Chintan STEWARD/STEWARDESS BATH-C Work Phone: [facility] 07-26-2024 05:32-0500 Body temperature 98 [degF] Alirio Chintan STEWARD/STEWARDESS BATH-C Work Phone: [facility] 07-26-2024 05:32-0500 Diastolic blood pressure 94 mm[Hg] Alirio Chintan STEWARD/STEWARDESS BATH-C Work Phone: [facility] 07-26-2024 05:32-0500 Heart rate 87 /min Alirio Chintan STEWARD/STEWARDESS BATH-C Work Phone: [facility] 07-26-2024 05:32-0500 Respiratory rate 16 /min Alirio Chintan STEWARD/STEWARDESS BATH-C Work Phone: [facility] 07-26-2024 05:32-0500 SaO2% (BldA) [Mass fraction] 98 % Alirio Chintan STEWARD/STEWARDESS BATH-C Work Phone: [facility] 07-26-2024 05:32-0500 Systolic blood pressure 136 mm[Hg] Alirio Chintan STEWARD/STEWARDESS BATH-C Work Phone: [facility] 07-24-2024 21:22-0500 Body mass index (BMI) [Ratio] 35.9 kg/m2 Alirio Chintan STEWARD/STEWARDESS BATH-C Work Phone: [facility] 07-24-2024 21:22-0500 Body weight 89.2 kg Alirio Chintan STEWARD/STEWARDESS BATH-C Work Phone: [facility] 06-02-2024 10:18-0500 Diastolic blood pressure 90 mm[Hg] Alirio Chintan MECHANICAL ENGINEERING ADVISOR.ELECTRICAL INTEGRATOR Work Phone: [facility] Comment on above: BP Darling average 06-02-2024 10:18-0500 Heart rate 88 /min Alirio Chintan MECHANICAL ENGINEERING ADVISOR.ELECTRICAL INTEGRATOR Work Phone: [facility] 06-02-2024 10:18-0500 Systolic blood pressure 134 mm[Hg] Alirio Chintan MECHANICAL ENGINEERING ADVISOR.ELECTRICAL INTEGRATOR Work Phone: [facility] Comment on above: BP Darling average 06-02-2024 09:08-0500 Body mass index (BMI) [Ratio] 34.87 kg/m2 Alirio Chintan MECHANICAL ENGINEERING ADVISOR.ELECTRICAL INTEGRATOR Work Phone: [facility] 06-02-2024 09:08-0500 Body weight 89.3 kg Alirio Chintan MECHANICAL ENGINEERING ADVISOR.ELECTRICAL INTEGRATOR Work Phone: [facility] 06-02-2024 09:08-0500 SaO2% (BldA) [Mass fraction] 96 % Alirio Chintan MECHANICAL ENGINEERING ADVISOR.ELECTRICAL INTEGRATOR Work Phone: [facility] 05-29-2024 13:43-0500 Body mass index (BMI) [Ratio] 35.11 kg/m2 Alirio Chintan MECHANICAL ENGINEERING ADVISOR.ELECTRICAL INTEGRATOR Work Phone: [facility] 05-29-2024 13:43-0500 Body weight 89.9 kg Alirio Chintan MECHANICAL ENGINEERING ADVISOR.ELECTRICAL INTEGRATOR Work Phone: [facility] 05-29-2024 13:43-0500 Diastolic blood pressure 98 mm[Hg] Alirio Chintan MECHANICAL ENGINEERING ADVISOR.ELECTRICAL INTEGRATOR Work Phone: [facility] 05-29-2024 13:43-0500 Heart rate 115 /min Alirio Chintan MECHANICAL ENGINEERING ADVISOR.ELECTRICAL INTEGRATOR Work Phone: [facility] 05-29-2024 13:43-0500 SaO2% (BldA) [Mass fraction] 96 % Alirio Chintan MECHANICAL ENGINEERING ADVISOR.ELECTRICAL INTEGRATOR Work Phone: [facility] 05-29-2024 13:43-0500 Systolic blood pressure 136 mm[Hg] Alirio Chintan MECHANICAL ENGINEERING ADVISOR.ELECTRICAL INTEGRATOR Work Phone: [facility] 03-08-2024 07:20-0400 Body mass index (BMI) [Ratio] 32.88 kg/m2 Alirio Chintan MECHANICAL ENGINEERING ADVISOR.ELECTRICAL INTEGRATOR Work Phone: [facility] 03-08-2024 07:20-0400 Body temperature 98.4 [degF] Alirio Chintan MECHANICAL ENGINEERING ADVISOR.ELECTRICAL INTEGRATOR Work Phone: [facility] 03-08-2024 07:20-0400 Body weight 84.2 kg Alirio Chintan MECHANICAL ENGINEERING ADVISOR.ELECTRICAL INTEGRATOR Work Phone: [facility] 03-08-2024 07:20-0400 Diastolic blood pressure 90 mm[Hg] Alirio Chintan MECHANICAL ENGINEERING ADVISOR.ELECTRICAL INTEGRATOR Work Phone: [facility] 03-08-2024 07:20-0400 Heart rate 75 /min Alirio Chintan MECHANICAL ENGINEERING ADVISOR.ELECTRICAL INTEGRATOR Work Phone: [facility] 03-08-2024 07:20-0400 SaO2% (BldA) [Mass fraction] 99 % Alirio Chintan MECHANICAL ENGINEERING ADVISOR.ELECTRICAL INTEGRATOR Work Phone: [facility] 03-08-2024 07:20-0400 Systolic blood pressure 132 mm[Hg] Alirio Chintan MECHANICAL ENGINEERING ADVISOR.ELECTRICAL INTEGRATOR Work Phone: [facility] 12-07-2023 07:28-0400 Diastolic blood pressure 92 mm[Hg] Alirio Chintan MECHANICAL ENGINEERING ADVISOR.ELECTRICAL INTEGRATOR Work Phone: [facility] 12-07-2023 07:28-0400 Systolic blood pressure 126 mm[Hg] Alirio Chintan MECHANICAL ENGINEERING ADVISOR.ELECTRICAL INTEGRATOR Work Phone: [facility] 12-07-2023 07:25-0400 Body mass index (BMI) [Ratio] 32.77 kg/m2 Alirio Chintan MECHANICAL ENGINEERING ADVISOR.ELECTRICAL INTEGRATOR Work Phone: [facility] 12-07-2023 07:25-0400 Body weight 83.92 kg Alirio Chintan MECHANICAL ENGINEERING ADVISOR.ELECTRICAL INTEGRATOR Work Phone: [facility] 12-07-2023 07:25-0400 Heart rate 76 /min Alirio Chintan MECHANICAL ENGINEERING ADVISOR.ELECTRICAL INTEGRATOR Work Phone: [facility] 12-07-2023 07:25-0400 SaO2% (BldA) [Mass fraction] 96 % Alirio Chintan MECHANICAL ENGINEERING ADVISOR.ELECTRICAL INTEGRATOR Work Phone: [facility] 08-21-2023 16:00-0500 Diastolic blood pressure 80 mm[Hg] Pollo Verma DO Work Phone: [facility] 08-21-2023 16:00-0500 Heart rate 73 /min Pollo Verma DO Work Phone: [facility] 08-21-2023 16:00-0500 Respiratory rate 18 /min Pollo Verma DO Work Phone: [facility] 08-21-2023 16:00-0500 SaO2% (BldA) [Mass fraction] 96 % Pollo Verma DO Work Phone: [facility] 08-21-2023 16:00-0500 Systolic blood pressure 138 mm[Hg] Pollo Verma DO Work Phone: [facility] 08-21-2023 13:56-0500 Body height 157.5 cm Pollo Verma DO Work Phone: [facility] 08-21-2023 13:56-0500 Body mass index (BMI) [Ratio] 34.75 kg/m2 Pollo Verma DO Work Phone: [facility] 08-21-2023 13:56-0500 Body temperature 96.91 [degF] Pollo Verma DO Work Phone: [facility] 08-21-2023 13:56-0500 Body weight 86.18 kg Pollo Verma DO Work Phone: [facility] 03-10-2023 07:16-0400 Body weight 103.42 kg Alirio Chintan MECHANICAL ENGINEERING ADVISOR.ELECTRICAL INTEGRATOR Work Phone: [facility] 03-10-2023 07:16-0400 Diastolic blood pressure 82 mm[Hg] Alirio Chintan MECHANICAL ENGINEERING ADVISOR.ELECTRICAL INTEGRATOR Work Phone: [facility] 03-10-2023 07:16-0400 Heart rate 83 /min Alirio Chintan MECHANICAL ENGINEERING ADVISOR.ELECTRICAL INTEGRATOR Work Phone: [facility] 03-10-2023 07:16-0400 SaO2% (BldA) [Mass fraction] 98 % Alirio Chintan MECHANICAL ENGINEERING ADVISOR.ELECTRICAL INTEGRATOR Work Phone: [facility] 03-10-2023 07:16-0400 Systolic blood pressure 124 mm[Hg] Alirio Chintan MECHANICAL ENGINEERING ADVISOR.ELECTRICAL INTEGRATOR Work Phone: [facility] 02-02-2023 07:27-0400 Body weight 105.69 kg Alirio Chintan MECHANICAL ENGINEERING ADVISOR.ELECTRICAL INTEGRATOR Work Phone: [facility] 02-02-2023 07:27-0400 Diastolic blood pressure 86 mm[Hg] Alirio Chintan MECHANICAL ENGINEERING ADVISOR.ELECTRICAL INTEGRATOR Work Phone: [facility] 02-02-2023 07:27-0400 Heart rate 83 /min Alirio Chintan MECHANICAL ENGINEERING ADVISOR.ELECTRICAL INTEGRATOR Work Phone: [facility] 02-02-2023 07:27-0400 SaO2% (BldA) [Mass fraction] 95 % Alirio Chintan MECHANICAL ENGINEERING ADVISOR.ELECTRICAL INTEGRATOR Work Phone: [facility] 02-02-2023 07:27-0400 Systolic blood pressure 132 mm[Hg] Alirio Chintan MECHANICAL ENGINEERING ADVISOR.ELECTRICAL INTEGRATOR Work Phone: [facility] 12-29-2022 07:45-0400 Diastolic blood pressure 106 mm[Hg] Alirio Chintan MECHANICAL ENGINEERING ADVISOR.ELECTRICAL INTEGRATOR Work Phone: [facility] 12-29-2022 07:45-0400 Systolic blood pressure 146 mm[Hg] Alirio Chintan MECHANICAL ENGINEERING ADVISOR.ELECTRICAL INTEGRATOR Work Phone: [facility] 12-29-2022 07:43-0400 Body weight 108.41 kg Alirio Chintan MECHANICAL ENGINEERING ADVISOR.ELECTRICAL INTEGRATOR Work Phone: [facility] 12-29-2022 07:43-0400 Heart rate 75 /min Alirio Chintan MECHANICAL ENGINEERING ADVISOR.ELECTRICAL INTEGRATOR Work Phone: [facility] 12-29-2022 07:43-0400 SaO2% (BldA) [Mass fraction] 97 % Alirio Chintan MECHANICAL ENGINEERING ADVISOR.ELECTRICAL INTEGRATOR Work Phone: [facility] 12-02-2022 08:03-0400 Body height 160 cm Alirio Chintan MECHANICAL ENGINEERING ADVISOR.ELECTRICAL INTEGRATOR Work Phone: [facility] 12-02-2022 08:03-0400 Body weight 104.78 kg Alirio Chintan MECHANICAL ENGINEERING ADVISOR.ELECTRICAL INTEGRATOR Work Phone: [facility] 12-02-2022 08:03-0400 Diastolic blood pressure 126 mm[Hg] Alirio Chintan MECHANICAL ENGINEERING ADVISOR.ELECTRICAL INTEGRATOR Work Phone: [facility] 12-02-2022 08:03-0400 Heart rate 85 /min Alirio Chintan MECHANICAL ENGINEERING ADVISOR.ELECTRICAL INTEGRATOR Work Phone: [facility] 12-02-2022 08:03-0400 SaO2% (BldA) [Mass fraction] 96 % Lairio Chintan MECHANICAL ENGINEERING ADVISOR.ELECTRICAL INTEGRATOR Work Phone: [facility] 12-02-2022 08:03-0400 Systolic blood pressure 180 mm[Hg] Alirio Chintan MECHANICAL ENGINEERING ADVISOR.ELECTRICAL INTEGRATOR Work Phone: [facility] 09-07-2022 15:01-0500 Diastolic blood pressure 113 mm[Hg] [facility] 09-07-2022 15:01-0500 Heart rate 81 /min [facility] 09-07-2022 15:01-0500 Respiratory rate 16 /min [facility] 09-07-2022 15:01-0500 SaO2% (BldA) [Mass fraction] 98 % [facility] 09-07-2022 15:01-0500 Systolic blood pressure 189 mm[Hg] [facility] 09-07-2022 13:35-0500 Body height 157.48 cm [facility] 09-07-2022 13:35-0500 Body mass index (BMI) [Ratio] 44.8 kg/m2 [facility] 09-07-2022 13:35-0500 Body temperature 96.7 [degF] [facility] 09-07-2022 13:35-0500 Body weight 111.13 kg [facility] Encounters Encounter Date Encounter Type Care Provider Facility Start: 01-16-2025 End: 01-16-2025 ambulatory [facility] Provider [facility] Comment on above: [facility] Start: 01-12-2025 End: 01-15-2025 Refill Sihra Sapp MA [facility] Comment on above: Refill Request Start: 01-11-2025 End: 01-15-2025 Refill Jerilyn Mcqueen APRN.GLASS FITTER Work Phone: [facility] Comment on above: Refill Request Start: 12-24-2024 End: 12-25-2024 ambulatory [facility] Comment on above: Hydrocodone Start: 12-20-2024 End: 12-20-[address] Chuy Sims MD -[facility] Work Phone: Start: 12-20-2024 End: 12-20-2024 ambulatory Alirio Chintan STEWARD/[facility]EWARD[facility] BATH-C Work Phone: [facility] Work Phone: Start: 12-15-2024 End: 12-15-2024 ambulatory ALIRIO CHINTAN Facility:[facility] Start: 12-08-2024 End: 12-08-2024 Refill Alirio Chintan MECHANICAL ENGINEERING ADVISOR.ELECTRICAL INTEGRATOR Work Phone: [facility] Comment on above: Refill Request Start: 12-07-2024 End: 12-07-2024 Refill Alirio Chintan MECHANICAL ENGINEERING ADVISOR.ELECTRICAL INTEGRATOR Work Phone: [facility] Comment on above: Refill Request Start: 12-06-2024 End: 12-06-2024 ambulatory ALIRIO CHINTAN Facility:[facility] Start: 11-22-2024 End: 11-22-2024 Refill Alirio Chintan MECHANICAL ENGINEERING ADVISOR.ELECTRICAL INTEGRATOR Work Phone: [facility] Comment on above: Refill Request Start: 11-21-2024 End: 11-22-2024 Follow-up encounter Alirio Chintan MECHANICAL ENGINEERING ADVISOR.ELECTRICAL INTEGRATOR Work Phone: [facility] Comment on above: Results Start: 11-20-2024 End: 11-20-2024 ambulatory ALIRIO CHINTAN Facility:[facility] Start: 11-07-2024 End: 11-07-2024 Refill Alirio Chintan MECHANICAL ENGINEERING ADVISOR.ELECTRICAL INTEGRATOR Work Phone: [facility] Comment on above: Refill Request Start: 11-02-2024 End: 11-03-2024 ambulatory [facility] Comment on above: Jaundice Start: 10-23-2024 End: 10-23-2024 ambulatory ALIRIO CHINTAN Facility:[facility] Start: 10-23-2024 End: 12-23-2024 Follow-up encounter Alirio Woodson APRN.CNP Work Phone: [facility] Start: 10-22-2024 End: 10-23-2024 ambulatory [facility] Comment on above: La s Start: 10-20-2024 End: 10-24-2024 ambulatory [facility] Comment on above: Labs Start: 10-20-2024 End: 10-20-2024 Patient encounter procedure Alirio Woodson APRN.ELECTRICAL INTEGRATOR Work Phone: [facility] Comment on above: Fall on ice (Primary Dx); Acute pancreatitis, unspecified complication status, unspecified pancreatitis type; Closed fracture of multiple ribs of left side with routine healing, subsequent encounter; Hospital discharge follow-up; Jaundice; Primary hypertension; 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; Acute pancreatitis without infection or necrosis, unspecified pancreatitis type; Nausea and vomiting, unspecified vomiting type; Encounter for therapeutic drug monitoring; Pancreatic pseudocyst Refill Request Start: 10-18-2024 End: 10-18-2024 ambulatory Alirio Woodson APRN.ELECTRICAL INTEGRATOR Work Phone: [facility] Comment on above: Hospital F/U Start: 10-17-2024 End: 10-17-2024 Telephone encounter No Pcp (Hist) [facility] Comment on above: Patient Update Start: 10-14-2024 End: 10-16-2024 Evaluation and management of inpatient RUBEN LOPEZ MD [facility] Start: 10-14-2024 End: 10-14-2024 Emergency department patient visit Alirio Woodson STEWARD/STEWARDESS BATH-C Work Phone: -Emergency Department Work Phone: Start: 09-27-2024 End: 09-27-2024 Refill Alirio Woodson APRN.CNP Work Phone: [facility] Comment on above: Refill Request Start: 08-21-2024 End: 09-01-2024 ambulatory Alirio Chintan MECHANICAL ENGINEERING ADVISOR.ELECTRICAL INTEGRATOR Work Phone: [facility] Comment on above: Meds Start: 08-20-2024 End: 08-21-2024 Refill Alirio Chintan MECHANICAL ENGINEERING ADVISOR.ELECTRICAL INTEGRATOR Work Phone: [facility] Comment on above: Refill Request Start: 07-26-2024 Non-patient / Non-visit Dr. Ash Oneil MD -[facility] Work Phone: Start: 07-25-2024 Non-patient / Non-visit Dr. Ash Oneil MD -[facility] Work Phone: Start: 07-24-2024 Non-patient / Non-visit Dr. Dung Gómez DO -[facility] Work Phone: Start: 07-24-2024 ambulatory Dung Gómez Facility:[facility] Start: 07-24-2024 End: 07-26-2024 Evaluation and management of inpatient Dr. Ash Oneil MD -[facility] Work Phone: Start: 06-12-2024 End: 06-12-2024 ambulatory Alirio Chintan MECHANICAL ENGINEERING ADVISOR.ELECTRICAL INTEGRATOR Work Phone: Internal [facility] Comment on above: Tramadol Start: 06-02-2024 End: 06-02-2024 ambulatory ALIRIO CHINTAN Facility:[facility] Start: 06-02-2024 End: 06-02-2024 Patient encounter procedure Alirio Chintan MECHANICAL ENGINEERING ADVISOR.ELECTRICAL INTEGRATOR Work Phone: Internal [facility] Comment on above: Acute pancreatitis w ithout infection or necrosis, unspecified pancreatitis type (Primary Dx); Nausea and vomiting, unspecified vomiting type; Primary hypertension Start: 05-31-2024 End: 05-31-2024 ambulatory ALIRIO CHINTAN Facility:[facility] Start: 05-29-2024 End: 05-29-2024 Patient encounter procedure Alirio Chintan MECHANICAL ENGINEERING ADVISOR.ELECTRICAL INTEGRATOR Work Phone: Internal [facility] Comment on above: Acute pancreatitis w ithout infection or necrosis, unspecified pancreatitis type (Primary Dx); Nausea and vomiting, unspecified vomiting type Start: 05-29-2024 End: 05-29-2024 ambulatory ALIRIO CHINTAN Facility:[facility] Start: 05-28-2024 End: 05-28-2024 Emergency department patient visit Peter Hernandez Facility:[facility] Start: 04-19-2024 End: 04-19-2024 Telephone encounter Alirio Chintan MECHANICAL ENGINEERING ADVISOR.ELECTRICAL INTEGRATOR Work Phone: Internal [facility] Comment on above: Insurance Authorizat ion Start: 04-18-2024 End: 04-18-2024 ambulatory Alirio Chintan MECHANICAL ENGINEERING ADVISOR.ELECTRICAL INTEGRATOR Work Phone: Internal [facility] Comment on above: Qsymia Refill Request Start: 03-31-2024 End: 03-31-2024 Refill Alirio Chintan MECHANICAL ENGINEERING ADVISOR.ELECTRICAL INTEGRATOR Work Phone: [facility] Comment on above: Refill Request Start: 03-29-2024 End: 04-03-2024 ambulatory Alirio Chintan MECHANICAL ENGINEERING ADVISOR.ELECTRICAL INTEGRATOR Work Phone: Internal [place] [phone] Start: 03-08-2024 End: 03-08-2024 Patient encounter procedure Alirio Chintan MECHANICAL ENGINEERING ADVISOR.ELECTRICAL INTEGRATOR Work Phone: [facility] Comment on above: Hyponatremia (Primar y Dx); Hypokalemia; Hypomagnesemia; Primary hypertension; 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; Closed fracture of right ankle with delayed healing, subsequent encounter; Encounter for therapeutic drug monitoring Start: 03-08-2024 End: 03-08-2024 ambulatory ALIRIO CHINTAN Facility:[facility] Start: 03-07-2024 Refill Alirio Chintan A PRN.ELECTRICAL INTEGRATOR Work Phone: [facility] Comment on above: Refill Request Start: 02-20-2024 ambulatory Alirio Chintan STEWARD/STEWARDESS BATH Facilit y:[facility] Start: 02-20-2024 End: 02-23-2024 Evaluation and management of inpatient Ash Oneil Facility:[facility] Start: 02-08-2024 Refill Alirio Chintan A PRN.ELECTRICAL INTEGRATOR Work Phone: Internal [facility] Comment on above: Refill Request Start: 12-07-2023 End: 12-07-2023 Patient encounter procedure Alirio Chintan MECHANICAL ENGINEERING ADVISOR.ELECTRICAL INTEGRATOR Work Phone: [facility] Comment on above: Primary hypertension (Primary Dx); 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; Dysthymic disorder; Obesity, Class I, BMI 30-34.9; Arthritis; Other insomnia; Encounter for therapeutic drug monitoring Refill Request Start: 12-03-2023 ambulatory Alirio Chintan A PRN.ELECTRICAL INTEGRATOR Work Phone: [facility] Comment on above: Results Start: 12-03-2023 E-mail encounter fro m caregiver Alirio Chintan MECHANICAL ENGINEERING ADVISOR.ELECTRICAL INTEGRATOR Work Phone: [facility] Start: 11-10-2023 Get Medical Advice Alirio Fran aver MECHANICAL ENGINEERING ADVISOR.ELECTRICAL INTEGRATOR Work Phone: [facility] Comment on above: Order Start: 11-10-2023 Refill Alirio Chintan A PRN.ELECTRICAL INTEGRATOR Work Phone: [facility] Comment on above: Refill Request Start: 08-21-2023 End: 08-21-2023 Emergency department patient visit Pollo D Renny DO Work Phone: [facility] Comment on above: Generalized weakness (Primary Dx); Alcohol abuse Start: 06-21-2023 Refill Alirio Chintan A PRN.ELECTRICAL INTEGRATOR Work Phone: [facility] Comment on above: Refill Request Start: 05-14-2023 ambulatory Alirio Chintan A PRN.ELECTRICAL INTEGRATOR Work Phone: [facility] Comment on above: Qsymia Start: 05-12-2023 Telephone encounter Alirio Cleav er MECHANICAL ENGINEERING ADVISOR.ELECTRICAL INTEGRATOR Work Phone: [facility] Comment on above: Insurance Authorizat ion Start: 05-07-2023 ambulatory Alirio Chintan A PRN.ELECTRICAL INTEGRATOR Work Phone: [facility] Comment on above: Increasing dose Start: 03-10-2023 End: 03-10-2023 Patient encounter procedure Alirio Chintan MECHANICAL ENGINEERING ADVISOR.ELECTRICAL INTEGRATOR Work Phone: [facility] Comment on above: Obesity, Class III, BMI >= 40 (Primary Dx); 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; Primary hypertension; Dysthymic disorder; Yeast dermatitis; Encounter for therapeutic drug monitoring Start: 02-03-2023 Telephone encounter Alirio roblero MECHANICAL ENGINEERING ADVISOR.ELECTRICAL INTEGRATOR Work Phone: [facility] Comment on above: Insurance Authorizat ion (Qsymia ) Start: 02-02-2023 End: 02-02-2023 Office outpatient visit 25 minutes Alirio Woodson APRN.ELECTRICAL INTEGRATOR Work Phone: [facility] Comment on above: Primary hypertension (Primary Dx); 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; Low blood potassium; Obesity, Class III, BMI >= 40 Start: 01-18-2023 End: 01-18-2023 ambulatory [facility] Work Phone: Start: 01-18-2023 End: 01-18-2023 Patient encounter procedure [facility]-Laboratory Work Phone: Start: 01-11-2023 End: 01-11-2023 ambulatory [facility] Work Phone: Start: 01-11-2023 End: 01-11-2023 Patient encounter procedure [facility]-Pulmonary Services/Neurology Start: 01-05-2023 ambulatory Alirio Ceer A PRN.ELECTRICAL INTEGRATOR Work Phone: [facility] Comment on above: Potassium Start: 12-30-2022 Telephone encounter Alirio roblero MECHANICAL ENGINEERING ADVISOR.ELECTRICAL INTEGRATOR Work Phone: [facility] Comment on above: Results Start: 12-29-2022 ambulatory Alirio Ceer A PRN.ELECTRICAL INTEGRATOR Work Phone: [facility] Comment on above: Handout Start: 12-29-2022 E-mail encounter fro m caregiver Alirio Woodson APRN.ELECTRICAL INTEGRATOR Work Phone: [facility] Start: 12-29-2022 End: 12-29-2022 Patient encounter procedure Alirio Woodson MECHANICAL ENGINEERING ADVISOR.ELECTRICAL INTEGRATOR Work Phone: [facility] Comment on above: Primary hypertension (Primary Dx); 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; Dysthymic disorder; Low blood potassium; Obesity, Class III, BMI >= 40; Encounter for therapeutic drug monitoring Start: 12-04-2022 Telephone encounter Alirio Elma er MECHANICAL ENGINEERING ADVISOR.ELECTRICAL INTEGRATOR Work Phone: [facility] Comment on above: Results Start: 12-02-2022 Telephone encounter Alirio Wills er MECHANICAL ENGINEERING ADVISOR.ELECTRICAL INTEGRATOR Work Phone: [facility] Comment on above: Salesperson Driver - O ther Start: 12-02-2022 End: 12-02-2022 Patient encounter procedure Alirio Woodson MECHANICAL ENGINEERING ADVISOR.ELECTRICAL INTEGRATOR Work Phone: [facility] Comment on above: Primary hypertension (Primary Dx); 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; Dysthymic disorder; Closed fracture of right ankle with delayed healing, subsequent encounter; Arthritis; Obesity, Class III, BMI >= 40; History of breast cancer; Encounter for therapeutic drug monitoring; Screening for lipid disorders; Encounter to establish care Start: 09-07-2022 End: 09-07-2022 Emergency department patient visit [facility]-Emergency Department Start: 10-18-2017 Ambulatory DEBBIE KHAN [facility] Start: 08-17-2017 End: 08-18-2017 Ambulatory [facility] Start: 08-17-2017 Ambulatory [facility] Start: 08-12-2017 Ambulatory GARCIA JULIAN [facility] Start: 08-10-2017 Ambulatory ABEL Gaona ANITA [facility] Start: 08-05-2017 Ambulatory NANCY COONEY [facility] Start: 07-29-2017 Ambulatory ABEL Gaona ANITA [facility] Start: 07-23-2017 Ambulatory ABEL Gaona ANITA [facility] Start: 07-16-2017 Ambulatory ABEL Gaona ANITA [facility] Procedures Date Procedure Procedure Detail Performing Clinician Start: 10-14-2024 Computed tomography of abdomen and pelvis with intravenous contrast Alirio JACOMEC Work Phone: Start: 10-14-2024 Urnls dip stick/tabl et reagent auto microscopy Alirio Chintan [facility]ARD/[facility] BATH-C Work Phone: Start: 10-14-2024 X-ray of chest posteroanterior view Alirio Chintan [facility]EWARD/ST[facility]ARD[facility] BATH-C Work Phone: Start: 10-14-2024 Estimated creatinine clearance Alirio Chintan [facility]EWARD/[facility] BATH-C Work Phone: Start: 07-24-2024 CT cervical spine wi thout contrast Alirio Chintan STEWARD/STEW[facility] BATH-C Work Phone: Start: 07-24-2024 CT of head without contrast Alirio Chintan [employer]EWARD[employer] B[facility]-C Work Phone: Start: 07-24-2024 SARS-CoV-2, Influenz a & RSV (PCR) Alirio Chintan STEWARD/STEWARDESS BATH-C Work Phone: Start: 08-21-2023 ECG 12-LEAD POLLO CAPELLAN MASTERS Start: 08-21-2023 CT HEAD WO IV CONTRAST POLLO VERMA Start: 08-21-2023 EXTRA URINE ESTEVES TUBE C AMJAYLAN MARTINEZSADIA Start: 08-21-2023 URINALYSIS MICROSCOP IC WITH REFLEX CULTURE POLLO VERMA Start: 08-21-2023 URINALYSIS WITH REFL EX CULTURE AND MICROSCOPIC POLLO VERMA Start: 08-21-2023 INFLUENZA A AND B PCR C AMSAKSHISalinas MARTINEZSADIA Start: 08-21-2023 SARS-COV-2 PCR, SYMPTOMATIC POLLO VERMA Start: 08-21-2023 CBC W Auto Different ial panel - Blood POLLO VERMA Start: 08-21-2023 Comprehensive metabo lic 2000 panel - Serum or Plasma POLLO VERMA Start: 08-21-2023 Magnesium [Mass/volu me] in Serum or Plasma POLLO VERMA Start: 08-21-2023 TROPONIN I, HIGH SENSITIVITY POLLO VERMA Start: 08-21-2023 Ecg routine ecg w/le ast 12 lds trcg only w/o i&r Pollo Verma DO Work Phone: Start: 08-21-2023 XR CHEST 1 VIEW POLLO VERMA Start: 08-21-2023 Ct head/brain w/o co ntrast material Pollo Verma DO Work Phone: Start: 08-21-2023 Urinalysis complete W Reflex Culture panel - Urine Pollo Verma DO Work Phone: Start: 08-21-2023 Urnls dip stick/tabl et reagent auto microscopy Pollo Verma DO Work Phone: Start: 08-21-2023 Influenza virus A an d B RNA [Identifier] in Unspecified specimen by CARLEE with probe detection Pollo Verma DO Work Phone: Start: 08-21-2023 SARS-CoV-2 (COVID-19 ) RNA [Presence] in Respiratory specimen by CARLEE with probe detection Pollo Verma DO Work Phone: Start: 08-21-2023 Comprehensive metabo lic panel Pollo Verma DO Work Phone: Start: 08-21-2023 Radiologic exam ches t single view Pollo Verma DO Work Phone: Start: 12-02-2022 Lipid 1996 panel - S imtiaz or Plasma Alirio Woodson APRN.ELECTRICAL INTEGRATOR Work Phone: Start: 09-07-2022 Radiography of ankle Start: 01-13-2018 Bilateral reconstruc tion of breasts RUBEN LOPEZ MD Comment on above: Dr. Gonzalez Start: 09-09-2017 Bilateral mastectomy RA ALPHONSO LOPEZ MD Comment on above: Dr. Gonzalez Abdominal hysterectomy RUBEN LOPEZ MD Arthroscopy of knee RUBEN MAYS MD Comment on above: Left section RUBEN DING MD Comment on above: x2 Nasal septoplasty RUBEN GOOD MD Plan of Treatment Date Care Activity Detail Author Start: 12-07-2027 Diabetes Screening Diabetes Screenin g [facility] Start: 12-03-2027 Lipid 1996 panel - S imtiaz or Plasma Lipid Screening [facility] Start: 12-03-2027 Lipid panel Lipid Screening [facility] Start: 12-03-2027 LIPID SCREEN LIPID SCREEN [facility] Start: 11-21-2027 Diabetes Screening Diabetes Screenin g [facility] Start: 10-21-2027 Diabetes Screening Diabetes Screenin g [facility] Start: 05-31-2027 Diabetes Screening Diabetes Screenin g [facility] Start: 03-08-2027 Diabetes Screening Diabetes Screenin g [facility] Start: 11-30-2026 Diabetes Screening Diabetes Screenin g [facility] Start: 03-08-2026 DIABETES SCREEN DIABETES SCREEN [facility] Start: 03-08-2026 Diabetes Screening Diabetes Screenin g [facility] Start: 12-29-2025 Diabetes mellitus screening Diabetes Screening [facility] Start: 12-29-2025 DIABETES SCREEN DIABETES SCREEN [facility] Start: 12-15-2025 Annual PCP Team Pulp Refiner Operator javier Disease Visit Annual PCP Team Chronic Disease Visit [facility] Start: 12-15-2025 BP Controlled (<130/80) BP Controlle d (<130/80) [facility] Start: 12-02-2025 DIABETES SCREEN DIABETES SCREEN [facility] Start: 10-20-2025 Annual PCP Team Pulp Refiner Operator javier Disease Visit Annual PCP Team Chronic Disease Visit [facility] [facility] Start: 06-02-2025 Annual PCP Team Pulp Refiner Operator javier Disease Visit Annual PCP Team Chronic Disease Visit [facility] Start: 05-29-2025 Annual PCP Team Pulp Refiner Operator javier Disease Visit Annual PCP Team Chronic Disease Visit [facility] Start: 03-26-2025 Influenza vaccination Influenz a Vaccine (Season Ended) [facility] Start: 03-08-2025 Annual PCP Team Pulp Refiner Operator javier Disease Visit Annual PCP Team Chronic Disease Visit [facility] Start: 12-11-2024 End: 12-11-2024 Patient encounter procedure 12/11/2024 9:20 AM EDT Office Visit [facility] [address] [place] [id number] Alirio Woodson APRN.ELECTRICAL INTEGRATOR [address] [facility] [place] [id number] Lab review [facility] Comment on above: Lab review Start: 12-06-2024 Annual PCP Team Pulp Refiner Operator javier Disease Visit Annual PCP Team Chronic Disease Visit [facility] Start: 12-04-2024 End: 12-04-2024 Patient encounter procedure [facility] Comment on above: 6 month follow up Start: 11-28-2024 End: 02-27-2025 Ammonia [Moles/volume] in Plasma AMMONIA Lab Routine Jaundice Elevated liver function tests Expected: 11/28/2024, Expires: 02/27/2025 [facility] Comment on above: Expected: 11/28/2024 , Expires: 02/27/2025 Start: 11-28-2024 End: 02-27-2025 Basic metabolic 2000 panel - Serum or Plasma BASIC METABOLIC PANEL Lab Routine Hypokalemia Expected: 11/28/2024, Expires: 02/27/2025 [facility] Comment on above: Expected: 11/28/2024 , Expires: 02/27/2025 Start: 11-28-2024 End: 02-27-2025 Hepatic function 2000 panel - Serum or Plasma HEPATIC FUNCTION PNL Lab Routine Jaundice Elevated liver function tests Expected: 11/28/2024, Expires: 02/27/2025 [facility] Work Phone: Comment on above: Expected: 11/28/2024 , Expires: 02/27/2025 Start: 11-03-2024 End: 02-02-2025 Ammonia [Moles/volume] in Plasma AMMONIA Lab Routine Jaundice Expected: 11/03/2024, Expires: 02/02/2025 [facility] Comment on above: Expected: 11/03/2024 , Expires: 02/02/2025 Start: 11-03-2024 End: 02-02-2025 Amylase [Enzymatic activity/volume] in Serum or Plasma AMYLASE Lab Routine Acute pancreatitis, unspecified complication status, unspecified pancreatitis type (HCC) Expected: 11/03/2024, Expires: 02/02/2025 [facility] Comment on above: Expected: 11/03/2024 , Expires: 02/02/2025 Start: 11-03-2024 End: 02-02-2025 LY BY IFA WITH REFLEX LY BY IFA WITH REFLEX Lab Routine Jaundice Acute pancreatitis, unspecified complication status, unspecified pancreatitis type (HCC) Expected: 11/03/2024, Expires: 02/02/2025 [facility] Comment on above: Expected: 11/03/2024 , Expires: 02/02/2025 Start: 11-03-2024 End: 02-02-2025 Basic metabolic 2000 panel - Serum or Plasma BASIC METABOLIC PANEL Lab Routine Jaundice Encounter for therapeutic drug monitoring Expected: 11/03/2024, Expires: 02/02/2025 [facility] Comment on above: Expected: 11/03/2024 , Expires: 02/02/2025 Start: 11-03-2024 End: 02-02-2025 C reactive protein [Mass/volume] in Serum or Plasma C-REACTIVE PROTEIN Lab Routine Jaundice Acute pancreatitis, unspecified complication status, unspecified pancreatitis type (HCC) Expected: 11/03/2024, Expires: 02/02/2025 [facility] Comment on above: Expected: 11/03/2024 , Expires: 02/02/2025 Start: 11-03-2024 End: 02-02-2025 CBC W Auto Differential panel - Blood COMPLETE BLOOD COUNT AND DIFFERENTIAL Lab Routine Encounter for therapeutic drug monitoring Expected: 11/03/2024, Expires: 02/02/2025 [facility] Comment on above: Expected: 11/03/2024 , Expires: 02/02/2025 Start: 11-03-2024 End: 02-02-2025 Erythrocyte sedimentation rate SEDIMENTATION RATE, WESTERGREN Lab Routine Jaundice Acute pancreatitis, unspecified complication status, unspecified pancreatitis type (HCC) Expected: 11/03/2024, Expires: 02/02/2025 [facility] Comment on above: Expected: 11/03/2024 , Expires: 02/02/2025 Start: 11-03-2024 End: 02-02-2025 Hepatic function 2000 panel - Serum or Plasma HEPATIC FUNCTION PNL Lab Routine Jaundice Expected: 11/03/2024, Expires: 02/02/2025 [facility] Work Phone: Comment on above: Expected: 11/03/2024 , Expires: 02/02/2025 Start: 11-03-2024 End: 02-02-2025 Lipase [Enzymatic activity/volume] in Serum or Plasma LIPASE Lab Routine Acute pancreatitis, unspecified complication status, unspecified pancreatitis type (HCC) Expected: 11/03/2024, Expires: 02/02/2025 [facility] Comment on above: Expected: 11/03/2024 , Expires: 02/02/2025 Start: 10-20-2024 End: 01-19-2025 Amylase [Enzymatic activity/volume] in Serum or Plasma [facility] Comment on above: Expected: 10/20/2024 , Expires: 01/19/2025 Start: 10-20-2024 End: 01-19-2025 Basic metabolic 2000 panel - Serum or Plasma [facility] Comment on above: Expected: 10/20/2024 , Expires: 01/19/2025 Start: 10-20-2024 End: 01-19-2025 CBC W Auto Differential panel - Blood [facility] Work Phone: Comment on above: Expected: 10/20/2024 , Expires: 01/19/2025 Start: 10-20-2024 End: 01-19-2025 Hepatic function 2000 panel - Serum or Plasma [facility] Comment on above: Expected: 10/20/2024 , Expires: 01/19/2025 Start: 10-20-2024 End: 01-19-2025 Lipase [Enzymatic activity/volume] in Serum or Plasma [facility] Comment on above: Expected: 10/20/2024 , Expires: 01/19/2025 Start: 10-20-2024 End: 10-20-2024 Patient encounter procedure 10/20/2024 8:20 AM EDT Office Visit [facility] [address] [place], [place] [phone] Alirio Woodson APRN.ELECTRICAL INTEGRATOR [address] [place] [address] TCM-Hospital Follow Up Pancreatitis. Minerva Alexison. Discharged 10/16/2024. Requested records. [facility] Comment on above: TCM-Hospital Follow Up Pancreatitis. Minerva Ledgewood. Discharged 10/16/2024. Requested records. Start: 10-14-2024 [facility] Start: 10-14-2024 [facility] Start: 07-26-2024 Patient discharge [facility] Start: 07-24-2024 Following clinical p athway protocol [facility] Start: 07-24-2024 Assessment of risk o f venous thromboembolism [facility] Start: 07-24-2024 Notification of physician [facility] Start: 07-24-2024 Vital signs measurements [facility] Start: 07-24-2024 [facility] Start: 07-24-2024 Admission procedure [facility] Start: 06-28-2024 Annual PCP Team Pulp Refiner Operator javier Disease Visit Annual PCP Team Chronic Disease Visit [facility] Start: 06-06-2024 End: 06-06-2024 Patient encounter procedure 06/06/2024 7:20 AM EST Office Visit [facility] [address] [place], [place] [id number] Alirio Woodson APRN.ELECTRICAL INTEGRATOR [address] [place] [address] Routine for med refills [facility] Comment on above: Routine for med refi lls Start: 05-30-2024 End: 08-29-2024 Amylase [Enzymatic activity/volume] in Serum or Plasma AMYLASE Lab Routine Acute pancreatitis without infection or necrosis, unspecified pancreatitis type Nausea and vomiting, unspecified vomiting type Expected: 05/30/2024, Expires: 08/29/2024 [facility] Comment on above: Expected: 05/30/2024 , Expires: 08/29/2024 Start: 05-30-2024 End: 08-29-2024 CBC W Auto Differential panel - Blood COMPLETE BLOOD COUNT AND DIFFERENTIAL Lab Routine Acute pancreatitis without infection or necrosis, unspecified pancreatitis type Nausea and vomiting, unspecified vomiting type Expected: 05/30/2024, Expires: 08/29/2024 [facility] Work Phone: Comment on above: Expected: 05/30/2024 , Expires: 08/29/2024 Start: 05-30-2024 End: 08-29-2024 Comprehensive metabolic 2000 panel - Serum or Plasma COMPREHENSIVE METABOLIC PANEL Lab Routine Acute pancreatitis without infection or necrosis, unspecified pancreatitis type Nausea and vomiting, unspecified vomiting type Expected: 05/30/2024, Expires: 08/29/2024 [facility] Comment on above: Expected: 05/30/2024 , Expires: 08/29/2024 Start: 05-30-2024 End: 08-29-2024 Lipase [Enzymatic activity/volume] in Serum or Plasma LIPASE Lab Routine Acute pancreatitis without infection or necrosis, unspecified pancreatitis type Nausea and vomiting, unspecified vomiting type Expected: 05/30/2024, Expires: 08/29/2024 [facility] Comment on above: Expected: 05/30/2024 , Expires: 08/29/2024 Start: 03-26-2024 Covid-19 Vaccine () Covid-19 Vaccine () [facility] Start: 03-26-2024 Covid-19 Vaccine () Covid-19 Vaccine () [facility] Start: 03-26-2024 Influenza vaccination Influenza Vacc ine (#1) [facility] Start: 03-10-2024 ANNUAL PCP TEAM TEXTILE DYER JAVIER DISEASE VISIT ANNUAL PCP TEAM CHRONIC DISEASE VISIT [facility] Start: 03-08-2024 End: 06-07-2024 CBC W Auto Differential panel - Blood [facility] Work Phone: Comment on above: Expected: 03/08/2024 , Expires: 06/07/2024 Start: 03-08-2024 End: 06-07-2024 Comprehensive metabolic 2000 panel - Serum or Plasma [facility] Comment on above: Expected: 03/08/2024 , Expires: 06/07/2024 Start: 03-08-2024 End: 06-07-2024 Magnesium [Mass/volume] in Serum or Plasma [facility] Comment on above: Expected: 03/08/2024 , Expires: 06/07/2024 Start: 03-08-2024 End: 03-08-2024 Patient encounter procedure 03/08/2024 7:20 AM EDT Office Visit Internal Medicine [address] [phone] Alirio Woodson APRN.ELECTRICAL INTEGRATOR [address] [place], [place] [id number] [facility] Comment on above: [facility] Start: 02-22-2024 End: 02-22-2024 Patient encounter procedure 02/22/2024 7:20 AM EDT Office Visit [facility] [address] [place], [place] [phone] Alirio Woodson APRN.ELECTRICAL INTEGRATOR [address] [place], [place] [id number] 3 month follow up [facility] Comment on above: 3 month follow up Start: 02-03-2024 ANNUAL PCP TEAM TEXTILE DYER JAVIER DISEASE VISIT ANNUAL PCP TEAM CHRONIC DISEASE VISIT [facility] Start: 12-30-2023 ANNUAL PCP TEAM TEXTILE DYER JAVIER DISEASE VISIT ANNUAL PCP TEAM CHRONIC DISEASE VISIT [facility] Start: 12-07-2023 End: 03-07-2024 CBC W Auto Differential panel - Blood [facility] Comment on above: Expected: 12/07/2023 , Expires: 03/07/2024 Start: 12-07-2023 End: 03-07-2024 Potassium [Moles/volume] in Serum or Plasma [facility] Work Phone: Comment on above: Expected: 12/07/2023 , Expires: 03/07/2024 Start: 12-07-2023 End: 12-07-2023 Patient encounter procedure 12/07/2023 7:20 AM EDT Office Visit [facility] [address] [place], [place] [phone] Alirio Woodson APRN.ELECTRICAL INTEGRATOR [facility] [place], [place] [phone] Routine and refills [facility] Comment on above: Routine and refills Start: 12-03-2023 ANNUAL PCP TEAM TEXTILE DYER JAVIER DISEASE VISIT ANNUAL PCP TEAM CHRONIC DISEASE VISIT [facility] Start: 12-03-2023 HPV TESTING HPV TESTING [facility] Comment on above: Postponed from 11/08 (Declined at this time) Start: 12-03-2023 PAP TESTING PAP TESTING [facility] Comment on above: Postponed from 11/08 (Declined at this time) Start: 12-03-2023 Screening for malign ant neoplasm of cervix [facility] Comment on above: Postponed from 11/08 (Declined at this time) Postponed from 11/08 (Declined at this time) Start: 11-15-2023 End: 02-14-2024 CBC W Auto Differential panel - Blood COMPLETE BLOOD COUNT AND DIFFERENTIAL Lab Routine Encounter for therapeutic drug monitoring Expected: 11/15/2023, Expires: 02/14/2024 [facility] Work Phone: Comment on above: Expected: 11/15/2023 , Expires: 02/14/2024 Start: 11-15-2023 End: 02-14-2024 Comprehensive metabolic 2000 panel - Serum or Plasma COMPREHENSIVE METABOLIC PANEL Lab Routine Encounter for therapeutic drug monitoring Expected: 11/15/2023, Expires: 02/14/2024 [facility] Work Phone: Comment on above: Expected: 11/15/2023 , Expires: 02/14/2024 Start: 11-15-2023 End: 02-14-2024 Thyrotropin [Units/volume] in Serum or Plasma THYROID STIMULATING HORMONE Lab Routine Encounter for therapeutic drug monitoring Expected: 11/15/2023, Expires: 02/14/2024 [facility] Work Phone: Comment on above: Expected: 11/15/2023 , Expires: 02/14/2024 Start: 11-15-2023 End: 02-14-2024 Thyroxine (T4) free [Mass/volume] in Serum or Plasma T4 FREE/FREE THYROXINE Lab Routine Encounter for therapeutic drug monitoring Expected: 11/15/2023, Expires: 02/14/2024 [facility] Work Phone: Comment on above: Expected: 11/15/2023 , Expires: 02/14/2024 Start: 11-15-2023 End: 02-14-2024 Triiodothyronine (T3) Free [Mass/volume] in Serum or Plasma T3, FREE Lab Routine Encounter for therapeutic drug monitoring Expected: 11/15/2023, Expires: 02/14/2024 [facility] Work Phone: Comment on above: Expected: 11/15/2023 , Expires: 02/14/2024 Start: 09-01-2023 Covid-19 Vaccine () Covid-19 Vaccine () [facility] Start: 03-26-2023 Influenza vaccination [facility] Start: 03-10-2023 End: 05-10-2023 Basic metabolic 2000 panel - Serum or Plasma BASIC METABOLIC PNL Lab Routine Encounter for therapeutic drug monitoring Expected: 03/10/2023, Expires: 05/10/2023 [facility] Work Phone: Comment on above: Expected: 03/10/2023 , Expires: 05/10/2023 Start: 03-10-2023 End: 05-10-2023 Thyrotropin [Units/volume] in Serum or Plasma TSH BLD Lab Routine Encounter for therapeutic drug monitoring Expected: 03/10/2023, Expires: 05/10/2023 [facility] Work Phone: Comment on above: Expected: 03/10/2023 , Expires: 05/10/2023 Start: 03-10-2023 End: 05-10-2023 Thyroxine (T4) free [Mass/volume] in Serum or Plasma T4 FREE/FREE THYROX Lab Routine Encounter for therapeutic drug monitoring Expected: 03/10/2023, Expires: 05/10/2023 [facility] Work Phone: Comment on above: Expected: 03/10/2023 , Expires: 05/10/2023 Start: 03-10-2023 End: 05-10-2023 Triiodothyronine (T3) Free [Mass/volume] in Serum or Plasma T3 FREE BLD Lab Routine Encounter for therapeutic drug monitoring Expected: 03/10/2023, Expires: 05/10/2023 [facility] Work Phone: Comment on above: Expected: 03/10/2023 , Expires: 05/10/2023 Start: 02-16-2023 End: 04-18-2023 Basic metabolic 2000 panel - Serum or Plasma BASIC METABOLIC PNL Lab Routine Primary hypertension Low blood potassium Expected: 02/16/2023, Expires: 04/18/2023 [facility] Work Phone: Comment on above: Expected: 02/16/2023 , Expires: 04/18/2023 Start: 02-16-2023 End: 04-18-2023 Thyrotropin [Units/volume] in Serum or Plasma TSH BLD Lab Routine 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 Expected: 02/16/2023, Expires: 04/18/2023 [facility] Work Phone: Comment on above: Expected: 02/16/2023 , Expires: 04/18/2023 Start: 12-29-2022 End: 02-28-2023 Basic metabolic 2000 panel - Serum or Plasma [facility] Work Phone: Comment on above: Expected: 12/29/2022 , Expires: 02/28/2023 Start: 12-29-2022 End: 02-28-2023 Hemoglobin A1c in Blood [facility] Work Phone: Comment on above: Expected: 12/29/2022 , Expires: 02/28/2023 Start: 12-29-2022 End: 02-28-2023 Insulin [Units/volume] in Serum or Plasma [facility] Work Phone: Comment on above: Expected: 12/29/2022 , Expires: 02/28/2023 Start: 12-29-2022 End: 02-28-2023 Thyrotropin [Units/volume] in Serum or Plasma [facility] Work Phone: Comment on above: Expected: 12/29/2022 , Expires: 02/28/2023 Start: 12-29-2022 End: 02-28-2023 Thyroxine (T4) free [Mass/volume] in Serum or Plasma [facility] Work Phone: Comment on above: Expected: 12/29/2022 , Expires: 02/28/2023 Start: 12-29-2022 End: 02-28-2023 Triiodothyronine (T3) Free [Mass/volume] in Serum or Plasma [facility] Work Phone: Comment on above: Expected: 12/29/2022 , Expires: 02/28/2023 Start: 12-02-2022 End: 02-01-2023 CBC W Auto Differential panel - Blood [facility] Work Phone: Comment on above: Expected: 12/02/2022 , Expires: 02/01/2023 Start: 12-02-2022 End: 02-01-2023 Comprehensive metabolic 2000 panel - Serum or Plasma [facility] Work Phone: Comment on above: Expected: 12/02/2022 , Expires: 02/01/2023 Start: 12-02-2022 End: 02-01-2023 Lipid 1996 panel - Serum or Plasma [facility] Work Phone: Comment on above: Expected: 12/02/2022 , Expires: 02/01/2023 Start: 12-02-2022 End: 02-01-2023 Thyrotropin [Units/volume] in Serum or Plasma [facility] Work Phone: Comment on above: Expected: 12/02/2022 , Expires: 02/01/2023 Start: 12-02-2022 End: 02-01-2023 Thyroxine (T4) free [Mass/volume] in Serum or Plasma [facility] Work Phone: Comment on above: Expected: 12/02/2022 , Expires: 02/01/2023 Start: 12-02-2022 End: 02-01-2023 Triiodothyronine (T3) Free [Mass/volume] in Serum or Plasma [facility] Work Phone: Comment on above: Expected: 12/02/2022 , Expires: 02/01/2023 Start: 2018 Pneumococcal Vaccine : 50+ (1 of 1 - PCV) Pneumococcal Vaccine: 50+ (1 of 1 - PCV) [facility] Start: 2018 SHINGRIX VACCINE (1 of 2) BLACKBURN GRIX VACCINE (1 of 2) [facility] Start: 2018 Zoster Vaccines (1 of 2) Zoste r Vaccines (1 of 2) [facility] Start: 08-12-2018 Screening for malign ant neoplasm of breast Mammogram Screening [facility] Start: 07-04-2015 MMR Vaccines (1 of 1 - Standard series) MMR Vaccines (1 of 1 - Standard series) [facility] Start: 2013 COLOGUARD (FIT-DNA) COLOGUARD (FIT-D NA) [facility] Start: 2013 Colonoscopy COLONOSCOPY [facility] Start: 2013 COLORECTAL CANCER SCREENING COLORECTAL CANCER SCREENING [facility] Start: [address] COLONOGRAPHY [facility] Start: 2013 DIABETES SCREEN DIABETES SCREEN [facility] Start: 2013 FECAL OCCULT BLOOD FECAL OCCULT BLOO D [facility] Start: 2013 LIPID SCREEN LIPID SCREEN [facility] Start: 2013 Screening for malign ant neoplasm of colon [facility] Start: 2013 SIGMOIDOSCOPY SIGMOIDOSCOPY [facility] Start: 2008 Mammography [facility] Start: 2008 Screening for malign ant neoplasm of breast Mammogram Screening [facility] Start: 1998 Screening for malign ant neoplasm of cervix HPV Testing [facility] Start: 1990 DTaP/Tdap/Td Vaccine s (1 - Tdap) DTaP/Tdap/Td Vaccines (1 - Tdap) [facility] Start: 1989 Screening for malign ant neoplasm of cervix [facility] Start: 11-09-1987 Hepatitis A Vaccines (1 of 2 - Risk 2-dose series) Hepatitis A Vaccines (1 of 2 - Risk 2-dose series) [facility] Start: 11-09-1987 Hepatitis B Vaccine (1 of 3 - 19+ 3-dose series) Hepatitis B Vaccine (1 of 3 - 19+ 3-dose series) [facility] Start: 11-09-1987 Urine microalbumin profile [facility] Start: 1986 Anxiety Screening Anxiety Screening [facility] Start: 1986 BP CONTROLLED (<130/80) BP CONTROLLE D (<130/80) [facility] Start: 1986 Hepatitis C screening Hepatitis C Sc [facility] Start: 05-10-1969 COVID-19 VACCINE (#1) COVID-19 VACCI NE (#1) [facility] Start: 1968 HEPATITIS B (1 of 3 - 3-dose series) HEPATITIS B (1 of 3 - 3-dose series) [facility] Start: 1968 Hepatitis B Vaccine (1 of 3 - 3-dose series) Hepatitis B Vaccine (1 of 3 - 3-dose series) [facility] Start: 1968 Hepatitis B Vaccines (1 of 3 - 3-dose series) Hepatitis B Vaccines (1 of 3 - 3-dose series) [facility] Start: 1968 HIV screening HIV Screening [facility] Start: 1968 Lipid panel Lipid Panel [facility] Start: 1968 Screening for malign ant neoplasm of colon [facility] Start: 1968 Thyroid stimulating hormone measurement TSH Level [facility] Start: 1968 Yearly Adult Physical Yearly Adult P hysical [facility] End: 04-28-2025 DBT Breast - bilateral screening HOLA SCREENING W [facility] Radiology Routine Encounter for screening mammogram for breast cancer 1 Occurrences starting 03/29/2024 until 04/28/2025 [facility] Work Phone: Comment on above: 1 Occurrences starti ng 03/29/2024 until 04/28/2025 ECG 12 lead ECG 12 lead ECG STAT 08/21/2023 4:25 PM EST [facility] Work Phone: End: 08-21-2023 Extra Urine Esteves Tube [facility] Work Phone: Comment on above: Once for 1 Occurrenc es starting 08/21/2023 until 08/21/2023 Patient Education ED Ankle Dislo cation (Adult) [facility] Work Phone: Patient referral [facility] Work Phone: End: 08-21-2023 Urinalysis complete W Reflex Culture panel - Urine [facility] Service [facility] Work Phone: Comment on above: Once (Lab) for 1 Occ urrences starting 08/21/2023 until 08/21/2023 [facility] Immunizations Immunization Date Immunization Notes Care Provider Antolin johnson 05-26-2023 influenza, injectabl e, quadrivalent, contains preservative Alirio Chintan MECHANICAL ENGINEERING ADVISOR.ELECTRICAL INTEGRATOR Work Phone: [facility] Work Phone: 05-26-2023 influenza virus vaccine, unspecified formulation Alirio Chintan MECHANICAL ENGINEERING ADVISOR.ELECTRICAL INTEGRATOR Work Phone: [facility] 04-28-2019 influenza, seasonal, injectable Alirio Chintan MECHANICAL ENGINEERING ADVISOR.ELECTRICAL INTEGRATOR Work Phone: [facility] 05-09-2018 influenza, seasonal, injectable Alirio Chintan MECHANICAL ENGINEERING ADVISOR.ELECTRICAL INTEGRATOR Work Phone: [facility] 04-25-2017 influenza, injectabl e, quadrivalent, contains preservative Alirio Chintan MECHANICAL ENGINEERING ADVISOR.ELECTRICAL INTEGRATOR Work Phone: [facility] Work Phone: 04-25-2017 influenza, seasonal, injectable Alirio Chintan MECHANICAL ENGINEERING ADVISOR.ELECTRICAL INTEGRATOR Work Phone: [facility] 04-25-2017 influenza virus vaccine, unspecified formulation Alirio Chintan MECHANICAL ENGINEERING ADVISOR.ELECTRICAL INTEGRATOR Work Phone: [facility] 06-06-2015 influenza virus vaccine, live, attenuated, for intranasal use Alirio Chintan MECHANICAL ENGINEERING ADVISOR.ELECTRICAL INTEGRATOR Work Phone: [facility] Work Phone: 04-25-2013 influenza nasal, unspecified formulation Alirio Chintan MECHANICAL ENGINEERING ADVISOR.ELECTRICAL INTEGRATOR Work Phone: [facility] Work Phone: Payers Date Payer Category Payer Medicaid [place]ICA[place] [id number] 2024 Medicaid [id number] 2024 Self-pay [id number] 2019 Private Health Insurance [id number] 2019 Unknown [id number] 2019 Unknown [id number]. [id number] 2017 Unknown [id number] 2017 Unknown [id number] 1970 Unknown [id number]. 1243 1968 Unknown [id number] 2.16.840.1.668204.3.579.2. 627 Unknown [id number] 2.16.840.1.344680.3.579.2. 462 Unknown [id number] 2.16.840.1.612145.3.579.2. 462 Unknown [id number] 2.16.840.1.498849.3.579.2. 462 Unknown [id number] 2.16.840.1.171463.3.579.2. 462 Unknown [id number] 2.16.840.1.793255.3.579.2. 462 Unknown [id number] 2.16.840.1.301928.3.579.2. 462 Unknown [id number] 2.16.840.1.972882.3.579.2. 462 Unknown [id number] 2.16.840.1.275916.3.579.2. 462 Unknown [id number] 2.16.840.1.692933.3.579.2. 462 Unknown [id number] 2.16.840.1.607221.3.579.2. 462 Unknown [id number] 2.16.840.1.642630.3.579.2. 462 Unknown [id number] [id number]. 462 Social History Date Type Detail Facility Start: 09-07-2022 End: 09-07-2022 Tobacco smoking status [facility] Unknown if ever smoked [facility] Start: 12-02-2020 Non-smoker [facility] Start: 1970 Sex Assigned At Female [facility] Start: 12-02-2022 End: 10-14-2024 Tobacco smoking status NHIS Ex-smoker [facility] Work Phone: History of tobacco use Current smoker [facility] Work Phone: History of tobacco use Cigarette Smoker [facility] Work Phone: Start: 12-02-2022 Tobacco use and exposure Smokeless tobacco non-user [facility] Work Phone: Start: 12-02-2022 End: 12-15-2024 Alcohol intake Current drinker of alcohol (finding) [facility] Start: 12-02-2022 Alcohol Comment occasionally [facility] Start: 1970 Sex Assigned At Not on file [facility] Start: 12-28-2022 History SDOH Alcohol Frequency 4 [facility] Start: 12-28-2022 History SDOH Alcohol Std Drinks 1 [facility] Start: 12-28-2022 History SDOH Alcohol Binge 2 [facility] Start: 12-28-2022 History SDOH Social Connections Phone 5 [facility] Start: 12-28-2022 History SDOH Physical Activity DPW 0 [facility] Start: 12-02-2022 End: 12-28-2022 History of Social function [facility] Start: 12-02-2022 End: 12-28-2022 Social connection and isolation panel [facility] Frequency of Social Gatherings with Friends and Family Not on file [facility] Do you belong to any clubs or organizations such as religious groups, unions, fraternal or athletic groups, or school groups? No [facility] How often to you hav e a drink containing alcohol? 2-3 time sa week [facility] How many standard dr inks containing alcohol do you have on a typical day? 1 or 2 [facility] How often do you hav e 6 or more drinks on 1 occasion? Less than monthly [facility] Do you feel stress - tense, restless, nervous, or anxious, or unable to sleep at night because your mind is troubled all the time - these days [OSQ] Not at all [facility] (I/We) worried whe er (my/our) food would run out before (I/we) got money to buy more. Never true [facility] Start: 08-11-2023 End: 08-21-2023 Exposure to SARS-CoV-2 (event) Not sure [facility] Work Phone: Sexual O[facility] Start: 10-14-2024 Sex Female (finding) [facility] Goals Date Patient Goal Desired Activity /State Functional Status Date Assessment Result Facility 10-16-2024 Functional Status Room check performed [facility] 10-16-2024 Functional Status [facility] 10-16-2024 Functional Status [facility] 10-16-2024 Functional Status 7am-3pm [facility] 10-16-2024 Functional Status [facility] 10-15-2024 Functional Status Minimum assistance [facility] 10-15-2024 Functional Status [facility] 10-15-2024 Functional Status Skin moisturiz er, CHG bath [facility] 10-15-2024 Functional Status [facility] 10-14-2024 Functional Status [facility] 10-14-2024 Functional Status [facility] 10-14-2024 Functional Status [facility] 07-26-2024 Functional status Activity Ability Indepe ndent [facility] Work Phone: 07-25-2024 Functional status Ambulates;Up ad charles [facility] Work Phone: Mental Status Date Assessment Result Facility 10-16-2024 Mental Status Oriented x 4 [facility] 10-15-2024 Mental Status [facility] 10-15-2024 Mental Status [facility] 10-14-2024 Mental Status [facility] 10-14-2024 Cognitive function Voice/Name [facility] Work Phone: 07-25-2024 Cognitive function Voice/Name [facility] Work Phone: Clinical Notes 12-02-2022 to 01-16-2025 Telephone Encounter - Alirio Woodson APRN.CNP - 01/16/2025 1:27 PM EDTTelephone Encounter - Alirio Woodson APRN.CNP - 01/16/2025 1:27 PM EDTCAlirio page APRN.CNP - 10/20/2024 8:27 AM EDT Note Date & Type Note Facility 01-16-2025 Telephone encount er Note Okay to fill her Ambien. Please let them know. Thanks [facility] 01-16-2025 Miscellaneous Notes Formattin g of this note might be different from the original. Okay to fill her Ambien. Please let them know. Thanks [facility] calls and states that they do have 1 refill left. Patient states that she is willing to pay for prescription out of pocket but Pharmacy would need ok for this. Krista Gardiner RN documented in this encounter [facility] 01-16-2025 Telephone encount er Note [facility] calls and states that they do have 1 refill left. Patient states that she is willing to pay for prescription out of pocket but Pharmacy would need ok for this. Krista Gardiner RN [facility] 01-15-2025 Telephone encount er Note Patient has been identified by name and date of : Yes Patient phones for refill(s): Requested Prescriptions Pending Prescriptions Disp Refills omeprazole (PRILOSEC) 40 mg capsule 90 capsule 2 Sig: Take 1 capsule by mouth once daily. Date of last office visit in primary care: 12/15/2024 Date of next office visit in primary care: 01/12/2025 Please advise. Thank you. Rossy Andrade LPN. [facility] 01-15-2025 Miscellaneous Notes Formattin g of this note is different from the original. Patient has been identified by name and date of : Yes Patient phones for refill(s): Requested Prescriptions Pending Prescriptions Disp Refills omeprazole (PRILOSEC) 40 mg capsule 90 capsule 2 Sig: Take 1 capsule by mouth once daily. Date of last office visit in primary care: 12/15/2024 Date of next office visit in primary care: 01/12/2025 Please advise. Thank you. Rossy Andrade LPN. documented in this encounter [facility] 01-15-2025 Telephone encount er Note PDMP website checked and validated. All prescriptions have been APPROPRIATELY filled. No suspicious activity was identified. 01/15/2025 by Alirio Woodson APRN.CNP [facility] 01-15-2025 Miscellaneous Notes Formattin g of this note might be different from the original. PDMP website checked and validated. All prescriptions have been APPROPRIATELY filled. No suspicious activity was identified. 01/15/2025 by Alirio Woodson APRN.CNP Prescription Refill Information The patient has been identified by name and date of : Yes Caregiver verified no other encounters exist for this prescription request: Yes Caregiver confirmed with patient/requestor that no other refills are due, in the near future, with this provider at this time: Yes The last office visit in the department: 12/15/2024 Does the patient have a future office visit with this provider/department: No Requested Prescriptions Pending Prescriptions Disp Refills promethazine (PHENERGAN) 25 mg tablet 90 tablet 1 Sig: Take 1 tablet by mouth every 6 hours as needed for nausea/vomiting. levothyroxine (SYNTHROID) 150 mcg tablet 90 tablet 3 Sig: Take 1 tablet by mouth once daily. Take on empty stomach. For thyroid HYDROcodone-acetaminophen (NORCO) 5-325 mg per tablet 42 tablet 0 Sig: Take 1-2 tablets by mouth every 8 hours as needed for pain for up to 14 days. Shira Sapp MA January 12, 2025 11:42 AM documented in this encounter [facility] 01-12-2025 Telephone encount er Note Prescription Refill Information The patient has been identified by name and date of : Yes Caregiver verified no other encounters exist for this prescription request: Yes Caregiver confirmed with patient/requestor that no other refills are due, in the near future, with this provider at this time: Yes The last office visit in the department: 12/15/2024 Does the patient have a future office visit with this provider/department: No Requested Prescriptions Pending Prescriptions Disp Refills promethazine (PHENERGAN) 25 mg tablet 90 tablet 1 Sig: Take 1 tablet by mouth every 6 hours as needed for nausea/vomiting. levothyroxine (SYNTHROID) 150 mcg tablet 90 tablet 3 Sig: Take 1 tablet by mouth once daily. Take on empty stomach. For thyroid HYDROcodone-acetaminophen (NORCO) 5-325 mg per tablet 42 tablet 0 Sig: Take 1-2 tablets by mouth every 8 hours as needed for pain for up to 14 days. Shira Sapp MA January 12, 2025 11:42 AM [facility] 12-15-2024 Note HNO ID: [id number] Author: ALIRIO WOODSON APRN.ELECTRICAL INTEGRATOR Service: ? Author Type: Nurse Practitioner Type: Progress Notes Filed: 12/15/2024 08:08 Note Text: SUBJECTIVE Ora Adams is a 54 year old female here today for a check up on her medical problems. Chief Complaint Patient presents with: Follow Up: Blood work HPI Ora is a 54-year-old female with a history of liver disease, presenting for follow-up. Ora reports improvement in her overall condition but notes persistent sinus congestion for the past week, which she attributes to allergies. She also experiences generalized myalgia, which she believes is exacerbated by the weather. She has been taking oxycodone for pain management but expresses a desire to discontinue its use. She has attempted to manage her pain with acetaminophen, taking 2 tablets twice daily, but reports minimal relief. She inquires about transitioning back to tramadol, noting that she experiences pruritus with most medications but does not recall this side effect with tramadol. She also reports experiencing diarrhea, which she attributes to lactulose. She takes lactulose variably, depending on how she feels each day. She has also been inconsistent with her Creon intake, particularly during a recent trip for her stepdaughter's college graduation, where she left some of her medications behind, including Ambien. As a result, she has been experiencing insomnia. She is currently taking 20 mEq of potassium daily and has resumed drinking electrolytes. She reports a good appetite but notes that she gets full quickly and does not eat large meals. Ora reports feeling stressed and unmotivated, particularly regarding her job search. She feels physically unfit for long-term care or hospital shifts and has not been actively looking for work. She expresses a lack of motivation and a desire to enjoy her time off from work. She has a history of trying various medications for mood management, including Wellbutrin and Effexor, but did not find them effective. She is open to trying a new medication for mood improvement. Her medications were reviewed today and her list is now up to date. Medications Current Outpatient Medications Medication Sig potassium chloride ER (KLOR-CON M20) 20 mEq tablet Take 1 tablet by mouth once daily. xfuqov-juebweoi-psscjdt (CREON) 3,000-9,500- 15,000 unit delayed release capsule Take 1 capsule by mouth three times a day with meals. lactulose 20 gram/30 mL solution Take 30 mL by mouth three times a day. Start with 20 g 3 times daily. Can reduce to 2 times daily if having more than 2 to 3 soft stools/day. promethazine (PHENERGAN) 25 mg tablet Take 1 tablet by mouth every 6 hours as needed for nausea/vomiting. hydroCHLOROthiazide 12.5 mg capsule Take 1 capsule by mouth once daily. levothyroxine (SYNTHROID) 150 mcg tablet Take 1 tablet by mouth once daily. Take on empty stomach. For thyroid omeprazole (PRILOSEC) 40 mg capsule Take 1 capsule by mouth once daily. nystatin (MYCOSTATIN) cream Apply to affected area twice daily. HYDROcodone-acetaminophen (NORCO) 5-325 mg per tablet Take 1 tablet by mouth every 8 hours as needed for pain for up to 14 days. zolpidem (AMBIEN) 5 mg tablet Take 1 tablet by mouth at bedtime as needed for up to 90 days. sertraline (ZOLOFT) 25 mg tablet Take 1 tablet by mouth once daily. No current facility-administered medications for this visit. 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 Respiratory: Negative. Cardiovascular: Negative. OBJECTIVE BP 120/76 Pulse 50 Resp 14 Wt 182 lb 8.7 oz (82.8kg) Physical Exam Vitals and nursing note reviewed. Constitutional: General: She is awake. She is not in acute distress. Appearance: Normal appearance. She is well-developed and well-groomed. She is not ill-appearing, toxic-appearing or diaphoretic. HENT: Head: Normocephalic. Right Ear: External ear normal. Left Ear: External ear normal. Nose: Nose normal. Eyes: General: Vision grossly intact. Conjunctiva/sclera: Conjunctivae normal. Pupils: Pupils are equal, round, and reactive to light. Neck: Vascular: No JVD. Trachea: Trachea normal. Pulmonary: E (more content not included)... [facility] 12-08-2024 Telephone encount er Note Pt notified that scrips were signed by Dr. Garcia and sent to [facility] pharmacy at 442 pm. [facility] 12-08-2024 Miscellaneous Notes Formattin g of this note might be different from the original. Pt notified that scrips were signed by Dr. Garcia and [facility] to [facility] pharmacy at 442 pm. Pt asking for these to be sent today if possible as pt was to see Alirio Chintan yesterday and get the prescriptions but the provider was out ill. Please call pt when scripts have been sent. The patient has been identified by name and date of : Yes Caregiver verified no other encounters exist for this prescription request: Yes Caregiver confirmed with patient/requestor that no other refills are due, in the near future, with this provider at this time: Yes The last office visit in the department: 10/20/24 Does the patient have a future office visit with this provider/department: Yes Rescheduled from yesterday (provider out ill) to Monday 12/11 Requested Prescriptions Pending Prescriptions Disp Refills oxyCODONE IR (ROXICODONE) 5 mg immediate release tablet 21 tablet 0 Sig: Take 1 tablet by mouth every 8 hours as needed for pain for up to 7 days. zolpidem (AMBIEN) 5 mg tablet 30 tablet 2 Sig: Take 1 tablet by mouth at bedtime as needed for up to 90 days. Erica Slaughter RN December 08, 2024 1:59 PM documented in this encounter [facility] 12-08-2024 Telephone encount er Note Pt asking for these to be sent today if possible as pt was to see Alirio Woodson yesterday and get the prescriptions but the provider was out ill. Please call pt when scripts have been sent. The patient has been identified by name and date of : Yes Caregiver verified no other encounters exist for this prescription request: Yes Caregiver confirmed with patient/requestor that no other refills are due, in the near future, with this provider at this time: Yes The last office visit in the department: 10/20/24 Does the patient have a future office visit with this provider/department: Yes Rescheduled from yesterday (provider out ill) to Monday 12/11 Requested Prescriptions Pending Prescriptions Disp Refills oxyCODONE IR (ROXICODONE) 5 mg immediate release tablet 21 tablet 0 Sig: Take 1 tablet by mouth every 8 hours as needed for pain for up to 7 days. zolpidem (AMBIEN) 5 mg tablet 30 tablet 2 Sig: Take 1 tablet by mouth at bedtime as needed for up to 90 days. Erica Slaughter RN December 08, 2024 1:59 PM [facility] 11-22-2024 Telephone encount er Note PDMP website checked and validated. All prescriptions have been APPROPRIATELY filled. No suspicious activity was identified. 11/22/2024 by Alirio Woodson APRN.CNP [facility] 11-22-2024 Miscellaneous Notes Formattin g of this note might be different from the original. PDMP website checked and validated. All prescriptions have been APPROPRIATELY filled. No suspicious activity was identified. 11/22/2024 by Alirio Woodson APRN.CNP Prescription Refill Information The patient has been identified by name and date of : Yes Caregiver verified no other encounters exist for this prescription request: Yes Caregiver confirmed with patient/requestor that no other refills are due, in the near future, with this provider at this time: Yes The last office visit in the department: 10/20/24 Does the patient have a future office visit with this provider/department: Yes 12/04/24 Requested Prescriptions Pending Prescriptions Disp Refills oxyCODONE IR (ROXICODONE) 5 mg immediate release tablet 21 tablet 0 Sig: Take 1 tablet by mouth every 8 hours as needed for pain for up to 7 days. Elba Shrestha LPN November 22, 2024 11:35 AM documented in this encounter [facility] 11-22-2024 Telephone encount er Note Prescription Refill Information The patient has been identified by name and date of : Yes Caregiver verified no other encounters exist for this prescription request: Yes Caregiver confirmed with patient/requestor that no other refills are due, in the near future, with this provider at this time: Yes The last office visit in the department: 10/20/24 Does the patient have a future office visit with this provider/department: Yes 12/04/24 Requested Prescriptions Pending Prescriptions Disp Refills oxyCODONE IR (ROXICODONE) 5 mg immediate release tablet 21 tablet 0 Sig: Take 1 tablet by mouth every 8 hours as needed for pain for up to 7 days. Elba Shrestha LPN November 22, 2024 11:35 AM [facility] 11-22-2024 Telephone encount er Note Referral and records faxed. Message left for patient. [facility] 11-22-2024 Miscellaneous Notes Formattin g of this note might be different from the original. Referral and records faxed. Message left for patient. Please fax her referral and recent labs to [facility] and let her know once sent. Thanks. Patient returned call and went over results, notes from Alirio Woodson STEWARD/STEWARDESS BATH. Patient said she is not drinking any alcohol and she is taking the lactulose twice daily since making her have such diarrhea. She has not been taking her Potassium. She put the bottle back out and will get taking it again. Aware new rx sent to the pharmacy for her. Patient said the [facility] would not see her, did not take her insurance. Patient is asking for the referral and if could be faxed to [facility] please. LEFT MESSAGE FOR PATIENT TO CALL OFFICE. Can we call Ora and let her know that labs are back and liver numbers (AST and ALT) along with the pancrease numbers (amylase and lipase) are improved but her ammonia level is higher. Potassium is very low. Please verify she has not consumed any alcohol recently, see if she is taking the lactulose and how often. Please see if she has taken any of her prior potassium pills since our last visit. I sent in a new potassium script for her and I would like her to take 2 tablets of the potassium today to equal 40 mEq today and 2 tablets again tomorrow to equal 40 meq and then Wednesday she can start with taking just 1 tablet daily. She should repeat labs in 1 week. Please see if she has heard anything from GI. If not I want to work on getting her seen with GI/hepatology so see if okay to try and get her seen with [facility]. documented in this encounter [facility] 11-21-2024 Telephone encount er Note Please fax her referral and recent labs to [facility] and let her know once sent. Thanks. [facility] 11-21-2024 Telephone [facility] er Note Patient returned call and went over results, notes from Alirio Woodson STEWARD/STEWARDESS BATH. Patient said she is not drinking any alcohol and she is taking the lactulose twice daily since making her have such diarrhea. She has not been taking her Potassium. She put the bottle back out and will get taking it again. Aware new rx sent to the pharmacy for her. Patient said the [facility] would not see her, did not take her insurance. Patient is asking for the referral and if could be faxed to [facility] please. [facility] 11-21-2024 Telephone [facility] er Note LEFT MESSAGE FOR PATIENT TO CALL OFFICE. [facility] 11-21-2024 Telephone [facility] er Note Can we call Ora and let her know that labs are back and liver numbers (AST and ALT) along with the pancrease numbers (amylase and lipase) are improved but her ammonia level is higher. Potassium is very low. Please verify she has not consumed any alcohol recently, see if she is taking the lactulose and how often. Please see if she has taken any of her prior potassium pills since our last visit. I sent in a new potassium script for her and I would like her to take 2 tablets of the potassium today to equal 40 mEq today and 2 tablets again tomorrow to equal 40 meq and then Wednesday she can start with taking just 1 tablet daily. She should repeat labs in 1 week. Please see if she has heard anything from GI. If not I want to work on getting her seen with GI/hepatology so see if okay to try and get her seen with [facility]. [facility] 11-07-2024 Telephone [facility] er Note Prescription Refill Information The patient has been identified by name and date of : Yes Caregiver verified no other encounters exist for this prescription request: Yes Caregiver confirmed with patient/requestor that no other refills are due, in the near future, with this provider at this time: Yes The last office visit in the department: 10/20/24 Does the patient have a future office visit with this provider/department: Yes 12/04/24 Requested Prescriptions Pending Prescriptions Disp Refills oxyCODONE IR (ROXICODONE) 5 mg immediate release tablet 21 tablet 0 Sig: Take 1 tablet by mouth every 8 hours as needed for pain for up to 7 days. Elba Shrestha LPN November 07, 2024 3:26 PM [facility] 11-07-2024 Miscellaneous Notes Formattin g of this note is different from the original. Prescription Refill Information The patient has been identified by name and date of : Yes Caregiver verified no other encounters exist for this prescription request: Yes Caregiver confirmed with patient/requestor that no other refills are due, in the near future, with this provider at this time: Yes The last office visit in the department: 10/20/24 Does the patient have a future office visit with this provider/department: Yes 12/04/24 Requested Prescriptions Pending Prescriptions Disp Refills oxyCODONE IR (ROXICODONE) 5 mg immediate release tablet 21 tablet 0 Sig: Take 1 tablet by mouth every 8 hours as needed for pain for up to 7 days. Elba Shrestha LPN November 07, 2024 3:26 PM documented in this encounter [facility] 10-24-2024 Telephone encount er Note Ammonia level has been resulted. [facility] 10-24-2024 Miscellaneous Notes Formattin g of this note might be different from the original. Ammonia level has been resulted. Can we see if an ammonia level can be added to her labs? Thanks! Per patient My Chart message dated 10/22/24: Of course, trying to do some research. Would I benefit from any enzymes? Sorry to be a pain documented in this encounter [facility] 10-23-2024 Telephone encount er Note Can we see if an ammonia level can be added to her labs? Thanks! [facility] 10-23-2024 Telephone encount er Note Per patient My Chart message dated 10/22/24: Of course, trying to do some research. Would I benefit from any enzymes? Sorry to be a pain [facility] 10-23-2024 Telephone encount er Note Encounter closed see My Chart encounter dated 10/20/24 [facility] 10-23-2024 Miscellaneous Notes Formattin g of this note might be different from the original. Encounter closed see My Chart encounter dated 10/20/24 documented in this encounter [facility] 10-20-2024 Telephone encount er Note Prescription Refill Information The patient has been identified by name and date of : Yes Caregiver verified no other encounters exist for this prescription request: Yes Caregiver confirmed with patient/requestor that no other refills are due, in the near future, with this provider at this time: Yes The last office visit in the department: 10/20/24 Does the patient have a future office visit with this provider/department: Yes 12/04/24 Requested Prescriptions Pending Prescriptions Disp Refills levothyroxine (SYNTHROID) 150 mcg tablet 90 tablet 3 Sig: Take 1 tablet by mouth once daily. Take on empty stomach. For thyroid Elba Shrestha LPN October 20, 2024 11:13 AM [facility] 10-20-2024 Miscellaneous Notes Formattin g of this note is different from the original. Prescription Refill Information The patient has been identified by name and date of : Yes Caregiver verified no other encounters exist for this prescription request: Yes Caregiver confirmed with patient/requestor that no other refills are due, in the near future, with this provider at this time: Yes The last office visit in the department: 10/20/24 Does the patient have a future office visit with this provider/department: Yes 12/04/24 Requested Prescriptions Pending Prescriptions Disp Refills levothyroxine (SYNTHROID) 150 mcg tablet 90 tablet 3 Sig: Take 1 tablet by mouth once daily. Take on empty stomach. For thyroid Elba Shrestha LPN October 20, 2024 11:13 AM documented in this encounter [facility] 10-20-2024 Note HNO ID: [id number] Author: ALIRIO WOODSON APRN.ELECTRICAL INTEGRATOR Service: ? Author Type: Nurse Practitioner Type: Progress Notes Filed: 10/20/2024 09:36 Note Text: Transitional Care Management Progress Note The patients TCM visit was performed within the 7 days of discharge. TCM Eligibility Documentation The following information was gathered during the initial Patient Outreach Encounter. 10/18/2024 Date of Outreach: Outreach Attempt 1: Contact Made Date of Discharge 10/16/2024 If no data exists please enter it manually. If data exists please delete date of discharge and date of initial contact seen below. Patient's Date of discharge: 10/16/2024 Date of initial coordinator contact after discharge: 10/18/2024 Discharge diagnosis: pancreatitis Medication review completed Yes Provider Documentation: In follow-up of hospitalization, Ora Adams is a 53 year old female with the chief complaint of hospital discharge follow up. I have reviewed the patient?s last hospital course including diagnostic testing performed during this hospitalization, their discharge medications, and my assessment and plan with the patient and any family members present at today?s visit. HPI: Ora is a 53-year-old female, with a history of hypothyroidism, presenting with persistent pain and jaundice following a recent fall and hospitalization. Ora reports a fall on an day a few weeks ago, landing on her left side and purse. She experienced significant pain and soreness, initially attributing it to bruising. Two weeks later, she developed severe pain in the left chest and back, prompting an ER visit where she was diagnosed with fractures of the left 5th and 6th ribs. She continues to experience substantial pain, unable to lie on the affected side, sleep comfortably, or drive using the left arm. She also notes that the pain extends to the sternum and has been affecting her sleep, for which she took Ambien last night, resulting in 4 hours of sleep. During the ER visit, she underwent blood work revealing elevated bilirubin and lipase levels, leading to a diagnosis of acute pancreatitis. A CT scan identified a pseudocyst, and she was transferred to another hospital, where she describes her stay as the worst hospital stay she has ever had. She reports multiple infiltrations during IV placements, resulting in significant bruising and a persistent red spot on her arm. She also experienced mild jaundice, which she notes is improving, though her eyes remain affected. She was placed on a liquid diet during her hospital stay and reports confusion and frustration with the dietary recommendations provided. She was discharged with instructions to follow a low-fat diet but reports receiving conflicting information and inadequate guidance on dietary restrictions. She has been consuming fruits, vegetables, low-fat yogurt, and whole wheat products but expresses confusion about specific dietary limitations, such as the intake of lunch meats, sodium, and sweeteners. She also reports nausea, which she describes as intermittent and sometimes severe, leading to heaving. She reports a history of consuming half a glass of wine a few weeks prior to the onset of symptoms and expresses frustration with the medical staff's assumptions about her alcohol intake. She denies excessive alcohol consumption in the recent past. She reports a history of hypothyroidism and notes that her TSH levels were elevated during her hospital stay. She has been taking Synthroid but admits to occasionally forgetting doses. She expresses concerns about her insurance coverage, which is set to on the , and reports difficulty scheduling follow-up appointments with Gastroenterology. She is seeking guidance on dietary restrictions and pain management. The patient consented to the use of [employer] software for draft documentation of the visit consistent with [facility]?s Notice of Privacy Practices. PAST MEDICAL HISTORY: Reviewed and updated No past medical history on file. ALLERGIES: Reviewed and updated ALLERGIES Allergen Reactions Banana Hives Penicillins Hives Sulfa (Sulfonamide * Hives Vancomycin Other: See Comments Red man's syndrome Zyvox [Linezolid] Swelling, Anaphylaxis MEDICATIONS: Reviewed and updated Current Outpatient Medications Medication Sig zolpidem (AMBIEN) 5 mg tablet Take 1 tablet by mouth at bedtime as needed for up to 90 days. omeprazole (PRILOSEC) 40 mg capsule Take 1 capsule by mouth once daily. potassium chloride SR (MICRO-K) 10 mEq CR capsule Take 2 capsules by mouth once daily. levothyroxine (SYNTHROID) 150 mcg tablet Take 1 tablet by mouth once daily. Take on empty stomach. For thyroid promethazine (PHENERGAN) 25 mg tablet Take 1 tablet by mouth every 6 hours as needed for nausea/vomiting. nystatin (MYCOSTATIN) cream Apply to affected area twice daily. hydroCHLOROthiaz (more content not included)... [facility] 10-20-2024 History of Presen t illness Narrative Transitional Care Management Progress Note The patients TCM visit was performed within the 7 days of discharge. TCM Eligibility Documentation The following information was gathered during the initial Patient Outreach Encounter. 10/18/2024 Date of Outreach: Outreach Attempt 1: Contact Made Date of Discharge 10/16/2024 If no data exists please enter it manually. If data exists please delete date of discharge and date of initial contact seen below. Patient's Date of discharge: 10/16/2024 Date of initial coordinator contact after discharge: 10/18/2024 Discharge diagnosis: pancreatitis Medication review completed Yes Provider Documentation: In follow-up of hospitalization, Ora Adams is a 53 year old female with the chief complaint of hospital discharge follow up. I have reviewed the patient s last hospital course including diagnostic testing performed during this hospitalization, their discharge medications, and my assessment and plan with the patient and any family members present at today s visit. HPI: Ora is a 53-year-old female, with a history of hypothyroidism, presenting with persistent pain and jaundice following a recent fall and hospitalization. Ora reports a fall on an a few weeks ago, landing on her left side and purse. She experienced significant pain and soreness, initially attributing it to bruising. Two weeks later, she developed severe pain in the left chest and back, prompting an ER visit where she was diagnosed with fractures of the left 5th and 6th ribs. She continues to experience substantial pain, unable to lie on the affected side, sleep comfortably, or drive using the left arm. She also notes that the pain extends to the sternum and has been affecting her sleep, for which she took Ambien last night, resulting in 4 hours of sleep. During the ER visit, she underwent blood work revealing elevated bilirubin and lipase levels, leading to a diagnosis of acute pancreatitis. A CT scan identified a pseudocyst, and she was transferred to another hospital, where she describes her stay as the worst hospital stay she has ever had. She reports multiple infiltrations during IV placements, resulting in significant bruising and a persistent red spot on her arm. She also experienced mild jaundice, which she notes is improving, though her eyes remain affected. She was placed on a liquid diet during her hospital stay and reports confusion and frustration with the dietary recommendations provided. She was discharged with instructions to follow a low-fat diet but reports receiving conflicting information and inadequate guidance on dietary restrictions. She has been consuming fruits, vegetables, low-fat yogurt, and whole wheat products but expresses confusion about specific dietary limitations, such as the intake of lunch meats, sodium, and sweeteners. She also reports nausea, which she describes as intermittent and sometimes severe, leading to heaving. She reports a history of consuming half a glass of wine a few weeks prior to the onset of symptoms and expresses frustration with the medical staff's assumptions about her alcohol intake. She denies excessive alcohol consumption in the recent past. She reports a history of hypothyroidism and notes that her TSH levels were elevated during her hospital stay. She has been taking Synthroid but admits to occasionally forgetting doses. She expresses concerns about her insurance coverage, which is set to on the , and reports difficulty scheduling follow-up appointments with Gastroenterology. She is seeking guidance on dietary restrictions and pain management. The patient consented to the use of [employer] software for draft documentation of the visit consistent with [facility] s Notice of Privacy Practices. PAST MEDICAL HISTORY: Reviewed and updated No past medical history on file. ALLERGIES: Reviewed and updated ALLERGIES Allergen Reactions Banana Hives Penicillins Hives Sulfa (Sulfonamide * Hives Vancomycin Other: See Comments Red man's syndrome Zyvox [Linezolid] Swelling, Anaphylaxis MEDICATIONS: Reviewed and updated Current Outpatient Medications Medication Sig zolpidem (AMBIEN) 5 mg tablet Take 1 tablet by mouth at bedtime as needed for up to 90 days. omeprazole (PRILOSEC) 40 mg capsule Take 1 capsule by mouth once daily. potassium chloride SR (MICRO-K) 10 mEq CR capsule Take 2 capsules by mouth once daily. levothyroxine (SYNTHROID) 150 mcg tablet Take 1 tablet by mouth once daily. Take on empty stomach. For thyroid promethazine (PHENERGAN) 25 mg tablet Take 1 tablet by mouth every 6 hours as needed for nausea/vomiting. nystatin (MYCOSTATIN) cream Apply to affected area twice daily. hydroCHLOROthiazide 12.5 mg capsule Take 1 capsule by mouth once daily. (Patient not taking: Reported on 05/29/2024) nabumetone (RELAFEN) 500 mg tablet Take 500 mg by mouth twice daily. (Patient not taking: Reported on 05/29/2024) No current facility-administered medications for this visit. SOCIAL HISTORY: Reviewed and updated Social History Tobacco Use Smoking status: Former Types: Cigarettes Smokeless tobacco: Never Vaping Use Vaping status: Never Used Substance Use Topics Alcohol use: Yes Comment: occasionally Drug use: Not Currently Types: Marijuana Comment: Medical Marijuana card FAMILY HISTORY: Reviewed and updated FAMILY HISTORY Problem Relation Age of Onset Lung Cancer Mother Hypertension Mother Hypertension Father Hyperlipidemia Father Cataract Father Stroke Maternal Grandmother Stroke Maternal Grandfather Hypertension Maternal Grandfather Diabetes Maternal Grandfather Review of Systems Respiratory: Negative. Cardiovascular: Positive for chest pain. Negative for palpitations and leg swelling. Gastrointestinal: Positive for abdominal pain and nausea. Negative for vomiting. All other systems reviewed and negative, other than HPI. Physical Exam Vitals and nursing note reviewed. Constitutional: General: She is awake. She is not in acute distress. Appearance: Normal appearance. She is well-developed and well-groomed. She is not ill-appearing, toxic-appearing or diaphoretic. HENT: Head: Normocephalic. Right Ear: External ear normal. Left Ear: External ear normal. Nose: Nose normal. Eyes: General: Vision grossly intact. Conjunctiva/sclera: Conjunctivae normal. Pupils: Pupils are equal, round, and reactive to light. Neck: Vascular: No JVD. Trachea: Trachea normal. Cardiovascular: Rate and Rhythm: Normal rate and regular rhythm. Pulses: Normal pulses. Heart sounds: Normal heart sounds. No murmur heard. Pulmonary: Effort: Pulmonary effort is normal. No accessory muscle usage, prolonged expiration or respiratory distress. Breath sounds: Normal breath sounds. Musculoskeletal: Cervical back: Neck supple. Skin: General: Skin is warm and dry. Capillary Refill: Capillary refill takes less than 2 seconds. Neurological: General: No focal deficit present. Mental Status: She is alert and oriented to person, place, and time. Mental status is at baseline. Psychiatric: Attention and Perception: Attention and perception normal. Mood and Affect: Mood and affect normal. Speech: Speech normal. Behavior: Behavior normal. Behavior is cooperative. Thought Content: Thought content normal. Cognition and Memory: Cognition and memory normal. Judgment: Judgment normal. BP 130/100 Pulse 90 Wt 191 lb 12.8 oz (87.0kg) SpO2 97% Labs: - Total Bilirubin: 7.3 mg/dL - Direct Bilirubin: 4.7 mg/dL - AST: 271 U/L - ALT: 70 U/L - Lipase: 115 U/L Imaging: - MRI Pancreas and MRCP: Mild pancreatitis; pancreas tail mass possibly representing decompressed proteinaceous pseudocyst; adjacent mildly complex fluid collection along the posterior margins of the stomach. - CT Abdomen and Pelvis: Concern for acute pancreatitis, peripancreatic fat necrosis, and developing pseudocyst or hemorrhage. - Chest X-ray: Left fifth and sixth rib fractures. 1. I have reviewed the patient record including associated test results during the last hospitalization Yes 2. I have reviewed Lab test Yes 3. I have reviewed Radiology test Yes 4. I reviewed assessment/plan with the patient/family member Yes ASSESSMENT/PLAN 1. Fall on ice (W00.9XXA) Closed fracture of multiple ribs of left side with routine healing, subsequent encounter (S22.42XD) Fall on ice resulted in left 5th and 6th rib fractures confirmed by chest X-ray. Significant pain persists, affecting sleep and daily activities. - Prescribed Oxycodone 5 mg, to be taken up to three times daily as needed for pain. - Encouraged deep breathing exercises to prevent pneumonia. 2. Acute pancreatitis, unspecified complication status, unspecified pancreatitis type (HCC) (K85.90) Acute pancreatitis without infection or necrosis, unspecified pancreatitis type (HCC) (K85.90) Pancreatic pseudocyst (HCC) (K86.3) Diagnosed with acute pancreatitis and a pancreatic pseudocyst during recent hospitalization. MRI showed mild pancreatitis and a pancreas tail mass that could relate to a decompressed proteiniaceous pseudocyst or other issues. - Ordered liver panel, BMP, lipase, amylase, and CBC to monitor liver function and pancreatic enzymes. - Provided dietary recommendations, including a low-fat diet and moderation of fruits and carbohydrates. - Follow-up with GI specialist Dr. Perez in [place]; will send lab results to GI for further evaluation. 3. Hospital discharge follow-up (Z09) Recent hospitalization for acute pancreatitis and rib fractures. Discharge notes reviewed. - Coordinating follow-up care with GI specialist. 4. Jaundice (R17) Mild jaundice observed, likely secondary to liver dysfunction associated with acute pancreatitis. - Encouraged hydration and sunlight exposure to aid in resolution of jaundice. 5. Primary hypertension (I10) Currently managed with hydrochlorothiazide and lisinopril. - Sent prescription for hydrochlorothiazide 12.5 mg to [facility] for a 90-day supply. - Continue lisinopril as prescribed. 6. 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 Patient has a supply of Synthroid. - Continue Synthroid as prescribed. 7. Nausea and vomiting, unspecified vomiting type (R11.2) Intermittent nausea and vomiting, possibly related to pancreatitis. - Prescribed Phenergan, with instructions to take half a tablet as needed. 8. Encounter for therapeutic drug monitoring (Z51.81) Monitoring liver function and pancreatic enzymes due to recent acute pancreatitis and ongoing jaundice. - Ordered liver panel, BMP, lipase, amylase, and CBC. Portions of this note have been entered by ancillary staff. I have reviewed and when necessary edited, so that they are an adequate record of my encounter with this patient Please note that parts of this document were created using voice recognition software and therefore may contain grammatical errors. Patient verbalizes understanding of instructions from today's visit and in agreement with treatment plan. Questions answered. Agrees to call the office if questions, concerns or issues with acute symptoms not improving or if they worsen. See diagnoses and orders for additional plan(s). Allergies and medications were reviewed, list was updated, and refills given if needed. Past medical, surgical, social, and family history reviewed and updated as appropriate. Encouraged proper diet & exercise as well as compliance with taking medications. Age-appropriate health preventative measures were discussed. Return if symptoms worsen or fail to improve, for Keep next scheduled appointment.. Alirio Woodson APRN-GABE .TRANSITION CARE MANAGEMENT (TCM) INITIAL CONTACT [employer] Operator Outreach Provider Action/FYI: Patient reports that she is losing her insurance as of the first of the month and needed Wednesday appt. Was able to schedule appt to accommodate. Initial contact with patient post discharge, spoke to patient. Patient identified by name and . TRANSITION CARE MANAGEMENT INITIAL OUTREACH DOCUMENTATION: 10/18/2024 Date of Outreach: Outreach Attempt 1: Contact Made Date of Discharge 10/16/2024 SUMMARY: -Pt discharged from [facility] on 10/16/2024. -Admitted for: Pancreatitis Do you have a hospital follow up appointment with your PCP? Appointment on 10/20/2024 with Alirio Woodson. Yes. Remind patient of appointment date, time, and location. If not within 14 calendar days of discharge - please reschedule accordingly. MEDICATIONS: Many patients have questions or concerns about their medications once they are home. Were you prescribed any new medications? No Were you told to hold any medications? No Were any of your medications discontinued? No Do you have any questions about getting or taking your medications? No Your discharge instructions/After visit Summary (AVS) are important in guiding you through the recovery process. Is there anything I might help you understand? No, Patient reports that she has her discharge instructions and doesn't think she has any questions. She has been very tired since discharging home. She reports that she will review them and bring them to appt. Requested medical records from hospital as well. Do you have all the necessary equipment and supplies at home? Yes Medical records from recent hospitalization: Requested from outside hospital documented in this encounter [facility] 10-20-2024 Note HNO ID: [id number] Author: ALIRIO WOODSON APRN.GABE Service: ? Author Type: Nurse Practitioner Type: Progress Notes Filed: 10/20/2024 09:36 Note Text: .TRANSITION CARE MANAGEMENT (TCM) INITIAL CONTACT [employer] Operator Outreach Provider Action/FYI: Patient reports that she is losing her insurance as of the first of the month and needed Wednesday appt. Was able to schedule appt to accommodate. Initial contact with patient post discharge, spoke to patient. Patient identified by name and . TRANSITION CARE MANAGEMENT INITIAL OUTREACH DOCUMENTATION: 10/18/2024 Date of Outreach: Outreach Attempt 1: Contact Made Date of Discharge 10/16/2024 SUMMARY: -Pt discharged from [facility] on 10/16/2024. -Admitted for: Pancreatitis Do you have a hospital follow up appointment with your PCP? Appointment on 10/20/2024 with Alirio Woodson. Yes. Remind patient of appointment date, time, and location. If not within 14 calendar days of discharge - please reschedule accordingly. MEDICATIONS: Many patients have questions or concerns about their medications once they are home. Were you prescribed any new medications? No Were you told to hold any medications? No Were any of your medications discontinued? No Do you have any questions about getting or taking your medications? No Your discharge instructions/After visit Summary (AVS) are important in guiding you through the recovery process. Is there anything I might help you understand? No, Patient reports that she has her discharge instructions and doesn't think she has any questions. She has been very tired since discharging home. She reports that she will review them and bring them to appt. Requested medical records from hospital as well. Do you have all the necessary equipment and supplies at home? Yes Medical records from recent hospitalization: Requested from outside hospital [facility] 10-18-2024 Note HNO ID: [id number] Author: EDSON OG RN Service: ? Author Type: Registered Nurse Type: Progress Notes Filed: 10/18/2024 15:31 Note Text: .TRANSITION CARE MANAGEMENT (TCM) INITIAL CONTACT [employer] Outreach Provider Action/FYI: Patient reports that she is losing her insurance as of the first of the month and needed Wednesday appt. Was able to schedule appt to accommodate. Initial contact with patient post discharge, spoke to patient. Patient identified by name and . TRANSITION CARE MANAGEMENT INITIAL OUTREACH DOCUMENTATION: 10/18/2024 Date of Outreach: Outreach Attempt 1: Contact Made Date of Discharge 10/16/2024 SUMMARY: -Pt discharged from [facility] on 10/16/2024. -Admitted for: Pancreatitis Do you have a hospital follow up appointment with your PCP? Appointment on 10/20/2024 with Alirio Woodson. Yes. Remind patient of appointment date, time, and location. If not within 14 calendar days of discharge - please reschedule accordingly. MEDICATIONS: Many patients have questions or concerns about their medications once they are home. Were you prescribed any new medications? No Were you told to hold any medications? No Were any of your medications discontinued? No Do you have any questions about getting or taking your medications? No Your discharge instructions/After visit Summary (AVS) are important in guiding you through the recovery process. Is there anything I might help you understand? No, Patient reports that she has her discharge instructions and doesn't think she has any questions. She has been very tired since discharging home. She reports that she will review them and bring them to appt. Requested medical records from hospital as well. Do you have all the necessary equipment and supplies at home? Yes Medical records from recent hospitalization: Requested from outside hospital [facility] 10-18-2024 History of Presen t illness Narrative .TRANSITION CARE MANAGEMENT (TCM) INITIAL CONTACT [employer] Outreach Provider Action/I: Patient reports that she is losing her insurance as of the first of the month and needed Wednesday appt. Was able to schedule appt to accommodate. Initial contact with patient post discharge, spoke to patient. Patient identified by name and . TRANSITION CARE MANAGEMENT INITIAL OUTREACH DOCUMENTATION: 10/18/2024 Date of Outreach: Outreach Attempt 1: Contact Made Date of Discharge 10/16/2024 SUMMARY: -Pt discharged from [facility] on 10/16/2024. -Admitted for: Pancreatitis Do you have a hospital follow up appointment with your PCP? Appointment on 10/20/2024 with Alirio Woodson. Yes. Remind patient of appointment date, time, and location. If not within 14 calendar days of discharge - please reschedule accordingly. MEDICATIONS: Many patients have questions or concerns about their medications once they are home. Were you prescribed any new medications? No Were you told to hold any medications? No Were any of your medications discontinued? No Do you have any questions about getting or taking your medications? No Your discharge instructions/After visit Summary (AVS) are important in guiding you through the recovery process. Is there anything I might help you understand? No, Patient reports that she has her discharge instructions and doesn't think she has any questions. She has been very tired since discharging home. She reports that she will review them and bring them to appt. Requested medical records from hospital as well. Do you have all the necessary equipment and supplies at home? Yes Medical records from recent hospitalization: Requested from outside hospital documented in this encounter [facility] 10-18-2024 Note Patient Outreach (IN TMWS) ORA ADAMS ([id number]) 1970 F Date Time Provider Department 10/18/24 ALIRIO WOODSON During your visit today, we recorded the following information about you: Edson Og RN 10/18/2024 3:31 PM Signed .TRANSITION CARE MANAGEMENT (TCM) INITIAL CONTACT [employer] Outreach Provider Action/: Patient reports that she is losing her insurance as of the first of the month and needed Wednesday appt. Was able to schedule appt to accommodate. Initial contact with patient post discharge, spoke to patient. Patient identified by name and . TRANSITION CARE MANAGEMENT INITIAL OUTREACH DOCUMENTATION: 10/18/2024 Date of Outreach: Outreach Attempt 1: Contact Made Date of Discharge 10/16/2024 SUMMARY: -Pt discharged from [facility] on 10/16/2024. -Admitted for: Pancreatitis Do you have a hospital follow up appointment with your PCP? Appointment on 10/20/2024 with Alirio Woodson. Yes. Remind patient of appointment date, time, and location. If not within 14 calendar days of discharge - please reschedule accordingly. MEDICATIONS: Many patients have questions or concerns about their medications once they are home. Were you prescribed any new medications? No Were you told to hold any medications? No Were any of your medications discontinued? No Do you have any questions about getting or taking your medications? No Your discharge instructions/After visit Summary (AVS) are important in guiding you through the recovery process. Is there anything I might help you understand? No, Patient reports that she has her discharge instructions and doesn't think she has any questions. She has been very tired since discharging home. She reports that she will review them and bring them to appt. Requested medical records from hospital as well. Do you have all the necessary equipment and supplies at home? Yes Medical records from recent hospitalization: Requested from outside hospital Allergies As of Date: 10/18/2024 Noted Allergy Reaction BANANA 12/02/2022 4 - Hives PENICILLINS 12/02/2022 4 - Hives SULFA (SULFONAMIDE ANTIBIOTICS) 12/02/2022 4 - Hives VANCOMYCIN 12/02/2022 14 - Other: See Comments Comments: Red man's syndrome ZYVOX (LINEZOLID) 12/02/2022 7 - Swelling 10 - Anaphylaxis Date Reviewed: 06/02/2024 Reviewed by: Alirio Woodson APRN.ELECTRICAL INTEGRATOR - Fully Assessed Reason for Visit: Hospital F/U [57] Prescriptions as of 10/18/2024 - zolpidem (AMBIEN) 5 mg tablet Take 1 tablet by mouth at bedtime as needed for up to 90 days. - omeprazole (PRILOSEC) 40 mg capsule Take 1 capsule by mouth once daily. - potassium chloride SR (MICRO-K) 10 mEq CR capsule Take 2 capsules by mouth once daily. - levothyroxine (SYNTHROID) 150 mcg tablet Take 1 tablet by mouth once daily. Take on empty stomach. For thyroid - promethazine (PHENERGAN) 25 mg tablet Take 1 tablet by mouth every 6 hours as needed for nausea/vomiting. - hydroCHLOROthiazide 12.5 mg capsule Take 1 capsule by mouth once daily. - nystatin (MYCOSTATIN) cream Apply to affected area twice daily. - nabumetone (RELAFEN) 500 mg tablet Take 500 mg by mouth twice daily. 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 Not our patient. [facility] 10-17-2024 Miscellaneous Notes Formattin g of this note might be different from the original. [facility] called with update on d/c for patient and Clare Petersver number was provided. Not our patient. documented in this encounter [facility] 10-16-2024 Hospital Discharg e instructions Patient Education 10/16/2024 16:22:10 Acute Pancreatitis Acute Pancreatitis The pancreas is a gland that is located behind the stomach on the left side of the abdomen. It produces enzymes that help to digest food. The pancreas also releases the hormones glucagon and insulin, which help to regulate blood sugar. Acute pancreatitis happens when inflammation of the pancreas suddenly occurs and the pancreas becomes irritated and swollen. Most acute attacks last a few days and cause serious problems. Some people become dehydrated and develop low blood pressure. In severe cases, bleeding in the abdomen can lead to shock and can be life-threatening. The lungs, heart, and kidneys may fail. What are the causes? This condition may be caused by: Alcohol abuse. Drug abuse. Gallstones or other conditions that can block the tube that drains the pancreas (pancreatic duct). A tumor in the pancreas. Other causes include: Certain medicines. Exposure to certain chemicals. Diabetes. An infection in the pancreas. Damage caused by an accident (trauma). The poison (venom) from a scorpion bite. Abdominal surgery. Autoimmune pancreatitis. This is when the body's disease-fighting (immune) system attacks the pancreas. Genes that are passed from parent to child (inherited). In some cases, the cause of this condition is not known. What are the signs or symptoms? Symptoms of this condition include: Pain in the upper abdomen that may radiate to the back. Pain may be severe. Tenderness and swelling of the abdomen. Nausea and vomiting. Fever. How is this diagnosed? This condition may be diagnosed based on: A physical exam. Blood tests. Imaging tests, such as X-rays, CT or MRI scans, or an ultrasound of the abdomen. How is this treated? Treatment for this condition usually requires a stay in the hospital. Treatment for this condition may include: Pain medicine. Fluid replacement through an IV. Placing a tube in the stomach to remove stomach contents and to control vomiting (NG tube, or nasogastric tube). Not eating for 3 4 days. This gives the pancreas a rest, because enzymes are not being produced that can cause further damage. Antibiotic medicines, if your condition is caused by an infection. Treating any underlying conditions that may be the cause. Steroid medicines, if your condition is caused by your immune system attacking your body's own tissues (autoimmune disease). Surgery on the pancreas or gallbladder. Follow these instructions at home: Eating and drinking Follow instructions from your health care provider about diet. This may involve avoiding alcohol and decreasing the amount of fat in your diet. Eat smaller, more frequent meals. This reduces the amount of digestive fluids that the pancreas produces. Drink enough fluid to keep your urine pale yellow. Do not drink alcohol if it caused your condition. General instructions Take gpje-uxt-tsywfta and prescription medicines only as told by your health care provider. Do not drive or use heavy machinery while taking prescription pain medicine. Ask your health care provider if the medicine prescribed to you can cause constipation. You may need to take steps to prevent or treat constipation, such as: ?Take an kbwb-ixe-nsmwjgq or prescription medicine for constipation. ?Eat foods that are high in fiber such as whole grains and beans. ?Limit foods that are high in fat and processed sugars, such as fried or sweet foods. Do not use any products that contain nicotine or tobacco, such as cigarettes, e-cigarettes, and chewing tobacco. If you need help quitting, ask your health care provider. Get plenty of rest. If directed, check your blood sugar at home as told by your health care provider. Keep all follow-up visits as told by your health care provider. This is important. Contact a health care provider if you: Do not recover as quickly as expected. Develop new or worsening symptoms. Have persistent pain, weakness, or nausea. Recover and then have another episode of pain. Have a fever. Get help right away if: You cannot eat or keep fluids down. Your pain becomes severe. Your skin or the white part of your eyes turns yellow (jaundice). You have sudden swelling in your abdomen. You vomit. You feel dizzy or you faint. Your blood sugar is high (over 300 mg/dL). Summary Acute pancreatitis happens when inflammation of the pancreas suddenly occurs and the pancreas becomes irritated and swollen. This condition is typically caused by alcohol abuse, drug abuse, or gallstones. Treatment for this condition usually requires a stay in the hospital. This information is not intended to replace advice given to you by your health care provider. Make sure you discuss any questions you have with your health care provider. Document Released: 07/12/2006 Document Revised: 05/01/2019 Document Reviewed: 01/16/2019 [employer] Patient Education 2020 Exacter. Follow Up Care 10/14/2024 08:00:43 With:KONRAD PEREZ MD Address: [facility] [address] [place] [address]- When:Within 2 Week(s) Comments:Follow-up with gastroenterology as an outpatient. Call to make an appointment. With:ALIRIO WOODSON APRN-ELECTRICAL INTEGRATOR Address: [address] [place] [address]- [phone] When:5 to 7 days Comments:Please call the office to schedule a hospital follow up appointment. [facility] 10-16-2024 Note Discharge Instructions Thank you for allowing [facility] to assist you with your healthcare needs. The following is important discharge information regarding your hospital visit. Your Care Team ALIRIO WOODSON Your Diagnosis GERD (gastroesophageal reflux disease) Hypertension Hypothyroidism Increased liver enzymes Pancreatitis What to do next Instructions From Your Doctor You were evaluated with concern for pancreatitis. You were seen by gastroenterology during hospitalization. Follow-up with gastroenterology as an outpatient. You require further workup which can be done as an outpatient. You will likely require further imaging and workup that may need to be done at a tertiary center like [facility]. Please call GI team to set up appointment and schedule further follow-up. Take your thyroid medication as prescribed and repeat thyroid labs with your primary care physician as an outpatient. Call your doctor or present to the ER for any new or worsening symptoms. Follow Up Appointments Follow Up with KONRAD PEREZ MD When:In 2 weeks Where:[facility] [address] [address] [place] [address]- Additional Information: Follow-up with gastroenterology as an outpatient. Call to make an appointment. Follow Up with ALIRIO WOODSON When:Within 5 to 7 days Where:[address] [place] [address]- [phone] Additional Information: Please call the office to schedule a hospital follow up appointment. The Following Activity and Diet Have Been Ordered for You Discharge Activity - Ordered -- NO activity restrictions, 10/16/24 16:20:00 EDT Discharge Diet - Ordered -- No changes were made to your diet during your hospital stay. Please resume your pre hospitalization diet on discharge., 10/16/24 16:20:00 EDT The Following Equipment Has Been Ordered for You No qualifying data available. The Following Treatments Have Been Ordered for You Discharge Labs No qualifying data available. Discharge Radiology No qualifying data available. Other Therapies No qualifying data available. Post Acute Orders No qualifying data available. Someone Will Contact You Regarding These Home Health Referrals No home referrals have been ordered for you. No one will call you. Allergies Zyvox (Moderate) throat swelling erythromycin (Moderate) Hives penicillin (Moderate) Hives sulfa (Moderate) Hives vancomycin (Moderate) Red man syndrome Medications Please ask your primary doctor or pharmacist before taking any other medication not listed, including over the counter drugs, herbal medications, vitamins and or supplements as they may interact with your home medications. What How Much When Why Instructions Last Dose New acetaminophen-oxyCODONE (Percocet 5 mg-325 mg oral tablet) 1 tab(s) by mouth Three (3) times a day as needed for for pain Pancreatitis Duration: 3 Days Pickup at [facility] Changed levothyroxine 150 Microgram by mouth Once a day Unchanged DULoxetine (DULoxetine 30 mg oral delayed release capsule) 1 cap by mouth Once a day Chronic left hip pain Chronic lower back pain Duration: 14 Days Once 30mg capsules completed, start 60mg capsules. Unchanged DULoxetine (DULoxetine 60 mg oral delayed release capsule) 1 cap by mouth Once a day Chronic left hip pain Chronic lower back pain Duration: 90 Days Start 60mg capsules once finished with 30mg capsules. Unchanged gabapentin (gabapentin 100 mg oral capsule) 1 cap by mouth Two (2) times a day Unchanged gabapentin (gabapentin 300 mg oral capsule) 1 cap by mouth Once a day as needed for severe pain Unchanged hydroCHLOROthiazide (hydroCHLOROthiazide 25 mg oral tablet) 1 tab(s) by mouth Once a day Unchanged lisinopril (lisinopril 40 mg oral tablet) 1 tab(s) by mouth Every day Hypertension Duration: 90 Days Unchanged omeprazole (omeprazole 40 mg oral delayed release capsule) 1 cap by mouth Once a day GERD (gastroesophageal reflux disease) Duration: 90 Days Unchanged traZODone (traZODone 50 mg oral tablet) 1-2 tab(s) by mouth Daily at bedtime as needed for as needed Insomnia Duration: 90 Days Unchanged zolpidem (Ambien 5 mg oral tablet) 1 tab(s) by mouth Daily at bedtime as needed for as needed for sleep Pharmacy Information [facility]: [address] [place], [place] [phone] Please take this list to your next doctor s visit. Bring all medications you take, including over the counter medications, herbals and other supplements with you to your doctor s visit. Patients and families are reminded to discard old lists and to update any records with all medication providers or retail pharmacies. Education Materials Acute Pancreatitis The pancreas is a gland that is located behind the stomach on the left side of the abdomen. It produces enzymes that help to digest food. The pancreas also releases the hormones glucagon and insulin, which help to regulate blood sugar. Acute pancreatitis happens when inflammation of the pancreas suddenly occurs and the pancreas becomes irritated and swollen. Most acute attacks last a few days and cause serious problems. Some people become dehydrated and develop low blood pressure. In severe cases, bleeding in the abdomen can lead to shock and can be life-threatening. The lungs, heart, and kidneys may fail. What are the causes? This condition may be caused by: Alcohol abuse. Drug abuse. Gallstones or other conditions that can block the tube that drains the pancreas (pancreatic duct). A tumor in the pancreas. Other causes include: Certain medicines. Exposure to certain chemicals. Diabetes. An infection in the pancreas. Damage caused by an accident (trauma). The poison (venom) from a scorpion bite. Abdominal surgery. Autoimmune pancreatitis. This is when the body's disease-fighting (immune) system attacks the pancreas. Genes that are passed from parent to child (inherited). In some cases, the cause of this condition is not known. What are the signs or symptoms? Symptoms of this condition include: Pain in the upper abdomen that may radiate to the back. Pain may be severe. Tenderness and swelling of the abdomen. Nausea and vomiting. Fever. How is this diagnosed? This condition may be diagnosed based on: A physical exam. Blood tests. Imaging tests, such as X-rays, CT or MRI scans, or an ultrasound of the abdomen. How is this treated? Treatment for this condition usually requires a stay in the hospital. Treatment for this condition may include: Pain medicine. Fluid replacement through an IV. Placing a tube in the stomach to remove stomach contents and to control vomiting (NG tube, or nasogastric tube). Not eating for 3 4 days. This gives the pancreas a rest, because enzymes are not being produced that can cause further damage. Antibiotic medicines, if your condition is caused by an infection. Treating any underlying conditions that may be the cause. Steroid medicines, if your condition is caused by your immune system attacking your body's own tissues (autoimmune disease). Surgery on the pancreas or gallbladder. Follow these instructions at home: Eating and drinking Follow instructions from your health care provider about diet. This may involve avoiding alcohol and decreasing the amount of fat in your diet. Eat smaller, more frequent meals. This reduces the amount of digestive fluids that the pancreas produces. Drink enough fluid to keep your urine pale yellow. Do not drink alcohol if it caused your condition. General instructions Take xcim-uxx-vvpfivw and prescription medicines only as told by your health care provider. Do not drive or use heavy machinery while taking prescription pain medicine. Ask your health care provider if the medicine prescribed to you can cause constipation. You may need to take steps to prevent or treat constipation, such as: ? Take an gufg-drz-mraetqk or prescription medicine for constipation. ? Eat foods that are high in fiber such as whole grains and beans. ? Limit foods that are high in fat and processed sugars, such as fried or sweet foods. Do not use any products that contain nicotine or tobacco, such as cigarettes, e-cigarettes, and chewing tobacco. If you need help quitting, ask your health care provider. Get plenty of rest. If directed, check your blood sugar at home as told by your health care provider. Keep all follow-up visits as told by your health care provider. This is important. Contact a health care provider if you: Do not recover as quickly as expected. Develop new or worsening symptoms. Have persistent pain, weakness, or nausea. Recover and then have another episode of pain. Have a fever. Get help right away if: You cannot eat or keep fluids down. Your pain becomes severe. Your skin or the white part of your eyes turns yellow (jaundice). You have sudden swelling in your abdomen. You vomit. You feel dizzy or you faint. Your blood sugar is high (over 300 mg/dL). Summary Acute pancreatitis happens when inflammation of the pancreas suddenly occurs and the pancreas becomes irritated and swollen. This condition is typically caused by alcohol abuse, drug abuse, or gallstones. Treatment for this condition usually requires a stay in the hospital. This information is not intended to replace advice given to you by your health care provider. Make sure you discuss any questions you have with your health care provider. Document Released: 07/12/2006 Document Revised: 05/01/2019 Document Reviewed: 01/16/2019 Elsevier Patient Education 2020 [employer] Additional Information VACCINATE! IT SAVES LIVES! Members of the community who have not yet received the COVID-19 vaccine and would like to receive it can visit one of [facility] vaccine clinics. There are many vaccine clinic locations within the [facility]. For locations and available times, please visit https://gettheshot.coronavirus.[place].gov/. It is important to note that some COVID mobile vaccine clinics are held outdoors and may be canceled in rainy or stormy conditions. To learn more about pediatric vaccinations (ages 5-11), we invite you to visit the [facility] webpage. [email or web address]/pa [email or web address]-Sjyft-Ufvcunvylfm-Freque ybbq-Cdwfu-Cexyajejz.html To learn more about the COVID-19 vaccine, we invite you to visit the CDC website for a list of frequently asked questions.https://www.cdc.gov/cor onavirus/2019-ncov/vaccines/faq.h tml [facility] Patient Portal Access Instructions: Stay connected with your healthcare team and access your personal medical information anytime with the [facility] Patient Portal. Please follow the directions below to create your [email or web address] account: 1.Access the email account you provided upon registration to the hospital/physician office.2.Look for an invitation email from [facility].3.Open the email and access the invitation link: Accept Invitation to [facility].4.Fill in the required villafana to create your account. To access your account, visit [email or web address] [facility]. Click the blue button labeled Access Patient Portal and then log in with the username and password that you created in the steps above. You will be able to view your test results, lab results, a summary of your visits, upcoming appointments and more. There is also a convenient messaging option where you can send secure messages to your provider. In addition, you will have the ability to download any documents or summaries to your computer and/or send the information securely to a physician. Remember that your healthcare information is confidential, so carefully consider who you will allow to register on the [facility] Patient Portal for access to your information. You can also access the [facility] Patient Portal on the [facility] sincere. Simply click on Patient Portal and then log into your account. If you would like to receive a full copy of your medical records, please contact the [facility] Medical Records Department by calling [phone], Wednesday through Wednesday between 8 a.m. and 4:30 p.m. HOW TO SAFELY DISPOSE OF PRESCRIPTION MEDICATIONS Please use one of the following methods to safely dispose of your unused medications. 1.Use a drug disposal kit: the drug disposal pouch allows you to safely discard your old and unused drugs. Ask your nurse to give you one when you are discharged.2.Visit a local take-back location: Many local pharmacies and police departments have programs that collect old and unwanted prescription drugs. Call your local pharmacy or go to http://[employer].Seaters/1L0Ou0m to find one close to you.3.Make use of household items: Use cat litter or old coffee grounds to dispose medications if other options are not available. Mix your drugs with these household products, seal them in an airtight container and throw it into the garbage. Call [facility]: [phone] to be sure your drugs can be disposed of in this way. Some medicines may require a different approach.4.Never flush your medications down the toilet. IF YOU HAVE BEEN PRESCRIBED AN OPIOID FOR PAIN If you have been prescribed an opioid (such as hydrocodone, oxycodone or morphine), it is critical to understand the possible side effects and risks of opioid pain medications. Even when taken as directed, opioids can have several side effects including: Tolerance, meaning you might need to take more of a medication for the same pain relief. Nausea, vomiting and/or constipation. Sleepiness, dizziness, dry mouth, confusion, depression or itching. Physical dependence, meaning you have withdrawal symptoms when a medication is stopped, can develop within a few days. KNOW YOUR RESPONSIBILITIES It is important to know exactly how much and how often to take the opioid pain medications you are prescribed. Never take opioids in higher amounts or more often than prescribed. Do not combine opioids with alcohol or other drugs that cause drowsiness, such as benzodiazepines, also known as benzos, including diazepam and alprazolam, muscle relaxants or sleep aids. Never sell or share prescription opioids. This is illegal. Store opioids in a secure place and out of reach of others (including children, family, friends and visitors). The last page of this document has been signed and retained as a CHART COPY. Signatures Patient Education Materials Acute Pancreatitis Medication Leaflets My discharge plan and instructions have been reviewed and explained to me and I,ORA ADAMS understand my current condition and have read and understand these discharge instructions. I have received a written copy of the plan/instructions. If I have questions, I am aware that I should contact my doctor. Patient/Literary Agent Signature: Date/Time: Relationship to Patient: ____ Witness Name/Signature: Date/Time: [facility] 10-16-2024 Gastroenterology Progress note Date of Service 10/16/2024 Subjective Sitting on the edge of the bed. She denies any current complaints. Somewhat agitated and eager to be discharged. States she does not want to stay for any more testing and does not know why she is here to begin with. Objective Vitals and Measurements T: 36.6 C (Oral) TMIN: 36.6 C (Oral) TMAX: 36.8 C (Oral) HR: 78 (Monitored) RR: 16 BP: 128/96 SpO2: 96% Intake and Output 7AM Yesterday to 7AM Today Intake and Output (Last 24 hours) Intake Oral Intake 930.00 Output Stool Count 0.00 Urine Count 5.00 Total Summary Total Intake 930.00 Total Output 0.00 Fluid Balance 930.00 Physical Exam General Appearance: Sitting on the edge of the bed. In no acute distress. Head: Head is normocephalic and atraumatic. EENT: Sclera are nonicteric. Neck is supple without adenopathy. Trachea is midline. Cardiac: Heart rate and rhythm are normal. S1 and S2 noted. Lungs: No signs of respiratory distress. Lungs are clear bilaterally. On room air. Abdomen: Abdomen is soft, symmetric, no rebound/guarding, nontender. BS X 4. Extremities: No edema noted. Neurological: The patient is awake, alert, and oriented to person, place, and time. Speech is clear. Skin: Skin is warm, dry. Appropriate color for ethnicity. Weight Dosing Weight: 81.8 kg (10/14/24) Medications Medications (15) Active Scheduled: (7) gabapentin 100 mg Capsule 100 mg 1 cap(s), Oral, BID heparin 5,000 units/mL (1 mL) vial 5,000 unit(s) 1 mL, Subcutaneous, q8hr hydrochlorothiazide 25 mg tablet 25 mg 1 tab(s), Oral, qDay levothyroxine 150 mcg tablet 150 mcg 1 tab(s), Oral, qDayAC lisinopril 20 mg tablet 40 mg 2 tab(s), Oral, Daily pantoprazole 40 mg VIAL 40 mg, IV Push, qDayAC potassium chloride 20 mEq ER tablet 40 mEq 2 tab(s), Oral, QID Continuous: (1) NS (0.9% nacl) 1,000 mL 1,000 mL, Intravenous, 150 mL/hr PRN: (7) acetaminophen 325 mg Tablet 650 mg 2 tab(s), Oral, q4h acetaminophen-OXYcodone 325 mg-5 mg Tablet 1 tab(s), Oral, q4h albuterol - ipratropium 2.5 mg-0.5 mg/3 mL Inhal Taylor UD 3 mL, Inhalation, q4hRT dextrose 50% Solution Disp syringe 50 mL 25 gram(s) 50 mL, IV Push, AsDirected morphine 2 mg/mL 1 mL syringe 2 mg 1 mL, IV Push, q6hr ondansetron 2 mg/ 1 mL 2 mL INJ 4 mg 2 mL, IV Push, q4h zolpidem 5 mg tablet 5 mg 1 tab(s), Oral, qHS Lab Results 10/16 03:01 WBC: 5.0 Hgb: 11.2 L Hct: 32.7 L Platelet: 214 Neutrophil %: 53.4 Protime: 15.5 H PT International Ratio: 1.3 Glucose Level: 69 L Sodium Level: 137 Potassium Level: 3.4 L BUN: <5.0 L Creatinine Lvl (s): 0.62 10/15 02:21 WBC: 4.8 Hgb: 11.8 L Hct: 34.4 Platelet: 205 Neutrophil %: 55.1 Protime: 16.2 H PT International Ratio: 1.4 Glucose Level: 75 Sodium Level: 137 Potassium Level: 3.2 L BUN: <5.0 L Creatinine Lvl (s): 0.64 Liver Function Test Total Protein: 5.5 G/dL Low (10/16/24 03:01:00) Albumin Level: 2.3 G/dL Low (10/16/24 03:01:00) Bili Total: 6.9 mg/dL High (10/16/24 03:01:00) Alk Phos: 212 U/L High (10/16/24 03:01:00) AST/SGOT: 243 U/L High (10/16/24 03:01:00) ALT/SGPT: 67 U/L High (10/16/24 03:01:00) Anticoagulation Labs Protime: 15.5 seconds High (10/16/24 03:01:00) PT International Ratio: 1.3 ratio (10/16/24 03:01:00) Imaging Results and Diagnostics MRI Pancreas Result Date: October 15, 2024 Verified By: CLAUDETTE EDMONDS DO CLINICAL STATEMENT: IMPRESSION: []1. Pancreas tail mass may relate to decompressed proteinaceous pseudocyst.There is a region of nodular enhancement at its superior posterolateralmargin, may relate to remnant pancreas or possible neoplastic nodule. Thereis an adjacent mildly complex fluid collection extending along the posteriormargin of stomach. There are no prior comparisons available. If priorimaging becomes available, an addendum will be added. Otherwise, recommendCT abdomen pelvis with oral and IV contrast.2. Mild pancreatitis.3. Fatty replacement of liver with a nodular contour. Fibrosis/cirrhosisconsidered.4. Renal cortical thinning.5. Other findings described above. MRI MRPC Result Date: October 15, 2024 Verified By: CLAUDETTE EDMONDS DO CLINICAL STATEMENT: IMPRESSION: []1. Pancreas tail mass may relate to decompressed proteinaceous pseudocyst.There is a region of nodular enhancement at its superior posterolateralmargin, may relate to remnant pancreas or possible neoplastic nodule. Thereis an adjacent mildly complex fluid collection extending along the posteriormargin of stomach. There are no prior comparisons available. If priorimaging becomes available, an addendum will be added. Otherwise, recommendCT abdomen pelvis with oral and IV contrast.2. Mild pancreatitis.3. Fatty replacement of liver with a nodular contour. Fibrosis/cirrhosisconsidered.4. Renal cortical thinning.5. Other findings described above. XR Chest 1 View Result Date: October 15, 2024 Verified By: CLAUDETTE EDMONDS DO CLINICAL STATEMENT: IMPRESSION: Limiting position. Possible small right effusion/right base atelectasis. This document was transcribed utilizing voice recognition software and may contain typographical errors. Assessment/Plan Problem list: Elevated LFTs Abnormal imaging > Pancreatic tail lesion/possible pseudocyst > No evidence of mild pancreatitis > Complex fluid collection (8 x 3.1 x 4.5 cm) > Fatty infiltration of the liver with nodular hepatic contour Elevated iron sat and ferritin (66%/698) History of chronic alcohol use We are following patient for increased liver functions with findings concerning for a possible pancreatic lesion/pseudocyst/possible chronic pancreatitis. LFT elevation could be 2/2 alcoholic hepatitis in the setting of ongoing alcohol use. Patient's story regarding recent use has varied between providers. MRCP/MRI of the pancreas were ordered for further evaluation. Findings noted above. No evidence of choledocholithiasis. Radiology reading indicates possible remnant pancreas versus neoplastic nodule. Fluid collection also noted. Radiologist recommended possible CT abdomen pelvis with oral and IV contrast for further evaluation. She did have a CT at [facility] reportedly showed findings concerning for pancreatic pseudocyst and soft tissue density surrounding majority of the tail necrosis versus pancreatic hemorrhage could not be excluded. Likely would benefit from referral to tertiary care facility with evaluation by the team up there for consideration of EUS. Patient's abdominal exam benign today. No nausea or vomiting. LFTs increased today in comparison to yesterday with TB 6.9, AST 243, ALT 67, AP 212. Viral hepatitis panel was negative. IgG4 and smooth muscle antibodies are pending. Triglycerides just mildly elevated at 165. Iron studies show sat of 66 and ferritin 698. Patient would benefit from further testing for hemochromatosis with HFE. Will review imaging with Dr. Perez for further recommendations. As noted above, patient would benefit from further imaging/consideration of EUS/liver workup in the outpatient setting. She voices resistance to any further workup as an inpatient. Our office will attempt to reach out to the patient to establish follow-up with our office. Patient indicates she has seen a GI in her area in the past. Importance of following up with GI of her choice upon discharge and abstinence from alcohol going forward was stressed. Further orders/recommendations pending discussion with Dr. Perez. We will continue to follow while the patient remains in house. Digitally Signed by LI EDWARDS on 10/16/2024 12:42 PM Digitally Signed by LI EDWARDS on 10/16/2024 01:30 PM [facility] 10-15-2024 Note Date of Service October 15, 2024 Chief Complaint Abdominal pain Subjective 53-year-old female with past medical history significant for abuse, alcoholic pancreatitis, hypertension, hypothyroidism, recent fall who presented initially with epigastric abdominal pain and left lateral chest wall discomfort. Patient had fallen a couple of weeks ago prior to presentation. Patient presented to outside ER. Chest x-ray demonstrated left fifth and sixth rib fractures. Patient was also experiencing epigastric abdominal pain and nausea. Patient found to have acute pancreatitis. CT abdomen/pelvis at outside hospital demonstrated concern for acute pancreatitis and concern for peripancreatic fat necrosis and developing pseudocyst or hemorrhage. Patient admitted for further workup and treatment. She has been evaluated by gastroenterology. On evaluation today, patient indicates she is feeling little better. She is tolerating oral intake. She does continue to have some epigastric abdominal discomfort and left lateral chest wall discomfort. She indicates pain is improved. No nausea or emesis. No fevers or chills. No other acute events overnight. Objective Vitals and Measurements T: 36.7 C (Oral) TMIN: 36.6 C (Oral) TMAX: 36.9 C (Oral) HR: 84 (Monitored) RR: 16 BP: 127/96 SpO2: 94% Intake and Output 7AM Yesterday to 7AM Today Intake and Output (Last 24 hours) Intake Oral Intake 690.00 Output Stool Count 0.00 Urine Count 5.00 Total Summary Total Intake 690.00 Total Output 0.00 Fluid Balance 690.00 Physical Exam General Appearance: Alert, oriented Head: Normocephalic, atraumatic EENT: PERRLA, EOMI. Neck: Supple, no JVD Cardiac: Regular rate and rhythm. Normal S1/S2. Lungs: Lungs clear to auscultation bilaterally. Abdomen: Soft, epigastric tenderness on palpation, nondistended. BS *4. Extremities: No LE edema. Neurological: AO*3, CN 2-12 intact. Skin: No excoriations, lacerations, rash, or erythema Weight Dosing Weight: 81.8 kg (10/14/24) Medications Medications (15) Active Scheduled: (6) gabapentin 100 mg Capsule 100 mg 1 cap(s), Oral, BID heparin 5,000 units/mL (1 mL) vial 5,000 unit(s) 1 mL, Subcutaneous, q8hr hydrochlorothiazide 25 mg tablet 25 mg 1 tab(s), Oral, qDay levothyroxine 150 mcg tablet 150 mcg 1 tab(s), Oral, qDayAC lisinopril 20 mg tablet 40 mg 2 tab(s), Oral, Daily pantoprazole 40 mg VIAL 40 mg, IV Push, qDayAC Continuous: (1) NS (0.9% nacl) 1,000 mL 1,000 mL, Intravenous, 150 mL/hr PRN: (8) acetaminophen 325 mg Tablet 650 mg 2 tab(s), Oral, q4h albuterol - ipratropium 2.5 mg-0.5 mg/3 mL Inhal Taylor UD 3 mL, Inhalation, q4hRT dextrose 50% Solution Disp syringe 50 mL 25 gram(s) 50 mL, IV Push, AsDirected morphine 2 mg/mL 1 mL syringe 2 mg 1 mL, IV Push, q3h morphine 4 mg/mL 1mL INJ 4 mg 1 mL, IV Push, q3h ondansetron 2 mg/ 1 mL 2 mL INJ 4 mg 2 mL, IV Push, q4h tramadol 50 mg Tablet 50 mg 1 tab(s), Oral, q6hr zolpidem 5 mg tablet 5 mg 1 tab(s), Oral, qHS Lab Results 10/15 02:21 WBC: 4.8 Hgb: 11.8 L Hct: 34.4 Platelet: 205 Neutrophil %: 55.1 Protime: 16.2 H PT International Ratio: 1.4 Glucose Level: 75 Sodium Level: 137 Potassium Level: 3.2 L BUN: <5.0 L Creatinine Lvl (s): 0.64 Assessment/Plan Acute pancreatitis History of alcohol abuse Hypertension Hypothyroidism Patient presents with epigastric abdominal pain as well as left-sided chest wall discomfort. MRI pancreas and MRCP completed demonstrated mild pancreatitis. Pancreas tail mass may relate to decompressed proteinaceous pseudocyst. There is a region of nodular enhancement at its superior posterior lateral margin which may relate to remnant pancreas or possible neoplastic nodule. Adjacent mildly complex fluid collection extending along the posterior margins of the stomach. No prior comparisons available. Gastroenterology on board. Continue patient on low-fat diet and IV fluids. Reassess labs in AM. Time Spent >35 minutes Digitally Signed by APOORVA PRADHAN MD on 10/15/2024 07:27 PM [facility] 10-15-2024 Gastroenterology Progress note Date of Service October 15, 2024 Chief Complaint Abnormal liver tests and soft tissue density in the tail of pancreas with fatty liver. Subjective She denies any abdominal pain, nausea or vomiting. There is no heartburn or dysphagia. He denied any hematemesis melena or hematochezia. Recent labs showed WBC 4.8, hemoglobin 11.8, platelets 205 and INR 1.4. Sodium 137, potassium 3.2, BUN less than 5 and creatinine 0.6 bilirubin is slightly lower at 6.3, alk phos 205, AST 182, ALT 58, triglyceride 165, iron 113, TIBC 172 and iron saturation 66. Hepatitis serologies are negative. Ferritin is 608. MRCP and MRI of pancreas are pending Objective Vitals and Measurements T: 36.6 C (Oral) TMIN: 36.6 C (Oral) TMAX: 37.1 C (Oral) HR: 83 (Monitored) RR: 16 BP: 152/95 SpO2: 98% HT: 157.5 cm WT: 81.8 kg BMI: 32.98 Intake and Output 7AM Yesterday to 7AM Today Intake and Output (Last 24 hours) Intake Oral Intake 360.00 Output Stool Count 0.00 Urine Count 3.00 Total Summary Total Intake 360.00 Total Output 0.00 Fluid Balance 360.00 Physical Exam Eyes: No icterus or pallor ENMT: No thyromegaly or lymphadenopathy CVS: No lifts or heaves. No murmur or rub. Respiratory: Chest was clear to auscultation and percussion Gastrointestinal: Abdomen was soft and nontender. Liver and spleen are not palpable. Bowel sounds are normal. Neurological: Patient was alert and oriented 3. There was no focal neurological deficit. Psych: Mood and affect are normal. Skin: The skin was warm and there was no jaundice. Weight Dosing Weight: 81.8 kg (10/14/24) Medications Medications (15) Active Scheduled: (6) gabapentin 100 mg Capsule 100 mg 1 cap(s), Oral, BID heparin 5,000 units/mL (1 mL) vial 5,000 unit(s) 1 mL, Subcutaneous, q8hr hydrochlorothiazide 25 mg tablet 25 mg 1 tab(s), Oral, qDay levothyroxine 150 mcg tablet 150 mcg 1 tab(s), Oral, qDayAC lisinopril 20 mg tablet 40 mg 2 tab(s), Oral, Daily pantoprazole 40 mg VIAL 40 mg, IV Push, qDayAC Continuous: (1) NS (0.9% nacl) 1,000 mL 1,000 mL, Intravenous, 150 mL/hr PRN: (8) acetaminophen 325 mg Tablet 650 mg 2 tab(s), Oral, q4h albuterol - ipratropium 2.5 mg-0.5 mg/3 mL Inhal Taylor UD 3 mL, Inhalation, q4hRT dextrose 50% Solution Disp syringe 50 mL 25 gram(s) 50 mL, IV Push, AsDirected morphine 2 mg/mL 1 mL syringe 2 mg 1 mL, IV Push, q3h morphine 4 mg/mL 1mL INJ 4 mg 1 mL, IV Push, q3h ondansetron 2 mg/ 1 mL 2 mL INJ 4 mg 2 mL, IV Push, q4h tramadol 50 mg Tablet 50 mg 1 tab(s), Oral, q6hr zolpidem 5 mg tablet 5 mg 1 tab(s), Oral, qHS Lab Results 10/15 02:21 WBC: 4.8 Hgb: 11.8 L Hct: 34.4 Platelet: 205 Neutrophil %: 55.1 Protime: 16.2 H PT International Ratio: 1.4 Glucose Level: 75 Sodium Level: 137 Potassium Level: 3.2 L BUN: <5.0 L Creatinine Lvl (s): 0.64 EKG No qualifying data available. Assessment/Plan GERD (gastroesophageal reflux disease) Hypertension Hypothyroidism Increased liver enzymes Orders: IgG, Subclasses(1-4), 10/15/24 5:00:00 EDT, Next AM Draw (one day only), Blood, Once, Preferred Lab: Other lab service, Stop date 10/15/24 5:00:00 EDT Smooth Muscle Antibody Screen, 10/15/24 5:00:00 EDT, Next AM Draw (one day only), Blood, Once, Preferred Lab: Other lab service, Stop date 10/15/24 5:00:00 EDT Assessment: 1. Abnormal liver test most likely secondary to alcoholic hepatitis 2. History of pancreatitis 6 to 12 months ago. She has 5 x 6 cm soft tissue density in tail of pancreas Plan: 1. Follow CBC, CMP and INR 2. Await MRCP and MRI of pancreas 3. Advance diet Digitally Signed by KONRAD PREEZ MD on 10/15/2024 10:29 AM [facility] 10-15-2024 Note Exam Date Time Procedure Performing Provider Status 10/15/24 10:16 AM MRI Pancreas CLAUDETTE EDMONDS DO; Niecy h (Verified) [id number] ORIGINAL EXAMINATION: MRCP; MRI OF THE ABDOMEN WITHOUT AND WITH CONTRAST10/15/2024 10:29 am; 10/15/2024 10:28 am MR MRCP; MR ABDOMEN W/O and WITH CONTRAST COMPARISON: No direct comparison available HISTORY: ORDERING SYSTEM PROVIDED HISTORY: Reason for Exam: increase lft; ORDERING SYSTEM PROVIDED HISTORY: Reason for Exam: concern pancreatic pseudocyst TECHNIQUE: MRCP was performed without the administration of intravenous contrast.; Multiplanar multisequence MRI of the abdomen was performed without and with the administration of intravenous contrast. MRCP dedicated to biliary duct evaluation. Limited organ assessment on this exam. 17 mL MultiHance administered IV. FINDINGS: MRI/MRCP: Subtle periportal edema. Normal common bile duct caliber measures up to 4.5 mm. Gallbladder normal in appearance. No choleliths or sludge. Main pancreatic duct caliber normal. Mild diffuse edema surrounds the pancreas, particularly at the tail. There is a complex mass of pancreas tail demonstrating mixed signal architecture. It has a fairly well-circumscribed margin and measures up to approximately 5.5 x 4.6 cm axial T2 image 28/40. Postcontrast imaging demonstrates subtle region of nodular enhancement at the superior aspect of this focus axial image [id number]/11782 second imaging measures up to 2 x 1 cm. Remainder of mass demonstrates mixed pre contrast high T2 signal without significant enhancement postcontrast. Additionally, there is a mildly complex irregular fluid collection extending along the posterior margin gastric body, and abutting the superior anterior aspect pancreas tail. This complex fluid collection measures up to approximately 8 x 3.1 by 4.5 cm. There is moderate atrophy remainder of pancreas tail body and head. Additional findings: Moderate fatty replacement of liver. No overtly suspicious postcontrast liver findings. Nodular contour to liver. Moderate bilateral renal cortical thinning. No hydronephrosis. Adrenal glands and spleen grossly normal in appearance. Tiny left pleural effusion. Mild bibasilar pulmonary scar/atelectasis. Bilateral breast implants. Heart size upper limits of normal caliber. No evidence for bowel obstruction. No definite evidence for enlarged lymph nodes. IMPRESSION: [] 1. Pancreas tail mass may relate to decompressed proteinaceous pseudocyst. There is a region of nodular enhancement at its superior posterolateral margin, may relate to remnant pancreas or possible neoplastic nodule. There is an adjacent mildly complex fluid collection extending along the posterior margin of stomach. There are no prior comparisons available. If prior imaging becomes available, an addendum will be added. Otherwise, recommend CT abdomen pelvis with oral and IV contrast. 2. Mild pancreatitis. 3. Fatty replacement of liver with a nodular contour. Fibrosis/cirrhosis considered. 4. Renal cortical thinning. 5. Other findings described above. Interpreted by: Claudette Edmonds DO Preliminary Report By: Claudette Edmonds DO Electronically signed By Claudette Edmonds DO Dictated Date: 10/15/2024 10:55:23 AM Prelim Date: 10/15/2024 11:04:07 AM Sign Date: 10/15/2024 11:04:07 AM Ordering Provider: MAHAD [facility]03-23-2025 Note* Exam Date Time Procedure Performing Provider Status 10/15/24 9:49 AM MRI [facility] CLAUDETTE EDMONDS DO; Auth (Verified) [id number] ORIGINAL EXAMINATION: MRCP; MRI OF THE ABDOMEN WITHOUT AND WITH CONTRAST10/15/2024 10:29 am; 10/15/2024 10:28 am MR MRCP; MR ABDOMEN W/O and WITH CONTRAST COMPARISON: No direct comparison available HISTORY: ORDERING SYSTEM PROVIDED HISTORY: Reason for Exam: increase lft; ORDERING SYSTEM PROVIDED HISTORY: Reason for Exam: concern pancreatic pseudocyst TECHNIQUE: MRCP was performed without the administration of intravenous contrast.; Multiplanar multisequence MRI of the abdomen was performed without and with the administration of intravenous contrast. MRCP dedicated to biliary duct evaluation. Limited organ assessment on this exam. 17 mL MultiHance administered IV. FINDINGS: MRI/MRCP: Subtle periportal edema. Normal common bile duct caliber measures up to 4.5 mm. Gallbladder normal in appearance. No choleliths or sludge. Main pancreatic duct caliber normal. Mild diffuse edema surrounds the pancreas, particularly at the tail. There is a complex mass of pancreas tail demonstrating mixed signal architecture. It has a fairly well-circumscribed margin and measures up to approximately 5.5 x 4.6 cm axial T2 image 28/40. Postcontrast imaging demonstrates subtle region of nodular enhancement at the superior aspect of this focus axial image [id number] second imaging measures up to 2 x 1 cm. Remainder of mass demonstrates mixed pre contrast high T2 signal without significant enhancement postcontrast. Additionally, there is a mildly complex irregular fluid collection extending along the posterior margin gastric body, and abutting the superior anterior aspect pancreas tail. This complex fluid collection measures up to approximately 8 x 3.1 by 4.5 cm. There is moderate atrophy remainder of pancreas tail body and head. Additional findings: Moderate fatty replacement of liver. No overtly suspicious postcontrast liver findings. Nodular contour to liver. Moderate bilateral renal cortical thinning. No hydronephrosis. Adrenal glands and spleen grossly normal in appearance. Tiny left pleural effusion. Mild bibasilar pulmonary scar/atelectasis. Bilateral breast implants. Heart size upper limits of normal caliber. No evidence for bowel obstruction. No definite evidence for enlarged lymph nodes. IMPRESSION: [] 1. Pancreas tail mass may relate to decompressed proteinaceous pseudocyst. There is a region of nodular enhancement at its superior posterolateral margin, may relate to remnant pancreas or possible neoplastic nodule. There is an adjacent mildly complex fluid collection extending along the posterior margin of stomach. There are no prior comparisons available. If prior imaging becomes available, an addendum will be added. Otherwise, recommend CT abdomen pelvis with oral and IV contrast. 2. Mild pancreatitis. 3. Fatty replacement of liver with a nodular contour. Fibrosis/cirrhosis considered. 4. Renal cortical thinning. 5. Other findings described above. Interpreted by: Claudette Edmonds DO Preliminary Report By: Claudette Edmonds DO Electronically signed By Claudette Edmonds DO Dictated Date: 10/15/2024 10:55:23 AM Prelim Date: 10/15/2024 11:04:07 AM Sign Date: 10/15/2024 11:04:07 AM Ordering Provider: [facility]HAD [facility]ID [id number] Note* Exam Date Time Procedure Performing Provider Status 10/15/24 7:53 AM XR Chest 1 View CLAUDETTE EDMONDS DO; [facility] (Verified) [id number] ORIGINAL EXAMINATION: Exam Title:ONE XRAY VIEW OF THE CHEST Completed Time: 10/15/2024 7:54 am Procedure Description:CHEST ONE VIEW AP/PA COMPARISON: No direct comparison available HISTORY: ORDERING SYSTEM PROVIDED HISTORY: Reason for Exam: Chest pain FINDINGS: Lordotic AP technique limits assessment. Mild blunting right costophrenic angle. No gross consolidative pneumonia, left effusion, or pneumothorax. Heart size normal. Aortic arch contour normal. No gross acute osseous process demonstrated. IMPRESSION: Limiting position. Possible small right effusion/right base atelectasis. Interpreted by: Claudette Edmonds DO Preliminary Report By: Claudette Edmonds DO Electronically signed By Claudette Edmonds DO Dictated Date: 10/15/2024 8:14:56 AM Prelim Date: 10/15/2024 8:15:53 AM Sign Date: 10/15/2024 8:15:53 AM Ordering Provider: RUBEN LOPEZ [facility] [id number] Evaluation + Plan noteExtracted from: Title:History and Physical Author:RUBEN LOPEZ MD Date:10/14/24 GERD (gastroesophageal reflu x disease) Pt having acute vs chronic pancreatitis, start liquid diet, check Lipase, amylase. Consult GI, ? MRCP. 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 Hypertension Continue Home meds, lisinopril, HCTZ. Hypothyroidism Continue Home levothyroxine dos,e check TSH. Chest Pain: Pt has Left sided Cp with left 5th, 6th rib fractures s/p recent fall. Start prn P.O and iv pain meds History of Alcoholism: Pt denies daily alcohol intake, unlikely to go into alcohol withdrawal. Will monitor. Full code, step down monitored bed. Discussed with Gastro, nursing. Pt does not wish her case discussed with her Boyfriend Kirk Diagnostic Tests Pending * IgG, Subclasses(1-4) 10/15/24 * .Smooth Muscle Titer 10/15/24 [facility] 03-22-2025 Gastroenterology Consult note Date of Service 10/14/2024 Reason for Consultation increase lft Referring Physician fernando History of Present Illness Patient is a 53-year-old female that presented to for abdominal pain. She states that she had had some pain for the last couple of weeks on her left side after a fall. She initially managed herself at home however had increasing abdominal pain in epigastric region today and yesterday and so she went to [facility] for evaluation and was eventually transferred to [place] for furthermanagement. Patient states that she has a long history of alcohol abuse for couple of years where she was drinking 1/5 or so of vodka a week. She states she has been sober for some time up until about 2 weeks ago after she fell she said she started drinking wine again. She said she only had severalglasses and has really has not had anything since then. She states that she has not had any significant pain up until last night but has had a few episodes of some upper abdominal discomfort. She also states that she was admitted about a year ago to [facility] for pancreatitis but is uncertain at the time of what the cause of that pancreatitis was. Patient denies any nausea or vomiting. Denies anychest pain or shortness of breath. Has not really had much of an appetite. Denies any change in thecolor of her urine but did notice that her skin seem to be a little bit darker over the last several days. She had a lipase checked at the outlying facility that did have some mild elevation of 115. She also had some transaminase elevation with a alk phos of 200s AST of 271 and an ALT of 70. Total bili is noted to be 7.3. Her platelet count is normal at 214. She had a CT done at [facility] that did show findings concerning for a pancreatic pseudocyst of 5 x 6 x 5 cm and some soft tissue density surrounding the majority of tail that they suspected was related to that. There is also concern as to if this is actually necrosis or a pancreatic hemorrhage that could not be excluded. She does have a fatty liver noted with a prominent gallbladder but no stones or common on the common bile duct were documented at that time. Review of Systems 10 system review of systems was completed pertinent positive negatives are described above in HPI and are otherwise negative Physical Exam Vitals and Measurements T: 37.1 C (Oral) HR: 90 (Apical) RR: 16 BP: 140/95 SpO2: 93% HT: 157.5 cm WT: 81.8 kg BMI: 32.98 Weight Dosing Weight: 81.8 kg (10/14/24) General : patient resting in bed. Appears comfortable. HEENT: Head is normal non traumatic. Sclera icterus Neck: trachea midline Heart: regular rate and rhythm Lung: clear bilaterally to ascultation Abdomen: soft, minimal epigastric tender, bowel sounds present x 4. no distended. Obese Neuro: alert and oriented x3. speech is clear and regular Skin: warm and dry. no rashes noted. Jaundice Lab Results No 36 Hour Lab Data Imaging Results and Diagnostics reviewed CT from [facility] Assessment/Plan 1. Increased liver enzymes Patient with increased liver functions with findings concerning for a possible pancreatic pseudocyst would which would allude to the possibility of chronic pancreatitis. There is no common bile duct comment or calcification noted on the imaging so patient would benefit from further MRI of the pancreas to define exactly what this area or lesion might be. Due to the lack of information on regardingthe common bile duct will also order an MRCP with the significant elevation of her liver functions.However findings do appear consistent to also includes some form of relation to alcohol use with a AST ALT ratio. Patient states that she has not had any significant alcohol use but do question that b ased on her lab work. Suspect there could be a component about Here. In the meantime was did discuss with the primary care team. Will repeat labs in the morning include a CMP And an INR. Do agree with IV fluids and since patient's pain is fairly stable could give clear liquid diet pending on when the MRCP will take place. Patient will need to refrain and was stressed to avoid alcohol use long-term. Orders: MRI MRCP, 10/14/24 11:47:00 EDT, 10/14/24 11:47:00 EDT, Routine, increase lft, Wt k.8, Prior Valve Replacement: No, [facility], ME4[facility] MRI Pancreas(Pancreas MRI), 10/14/24 11:46:00 EDT, 10/14/24 11:46:00 EDT, Routine, concern pancreatic pseudocyst, Wt k.8, Prior Valve Replacement: No, [facility], ME4E Prothrombin Time - Panel(PT/INR), 10/15/24 5:00:00 EDT, Next AM Draw (one day only), Blood, Once, Stop date 10/15/24 5:00:00 EDT Problem List/Past Medical History Ongoing Breast cancer Chronic left hip pain Chronic lower back pain GERD - Gastro-esophageal reflux disease Hot flashes Hypertension Hypothyroid Increased liver enzymes Insomnia Thyroid nodule Procedure/Surgical History Bilateral reconstruction of breasts: 01/13/18 Bilateral mastectomy: 09/09/17 section Arthroscopy of knee Abdominal hysterectomy Nasal septoplasty Medications Inpatient Ambien, 5 mg= 1 tab(s), Oral, qHS, PRN Dextrose 50% IV Push, 25 gram(s)= 50 mL, IV Push, AsDirected, PRN DuoNeb, 3 mL, Inhalation, q4hRT, PRN gabapentin, 200 mg= 2 cap(s), Oral, BID heparin 5000 units/mL injection, 5000 unit(s)= 1 mL, Subcutaneous, q8hr hydroCHLOROthiazide, 25 mg= 1 tab(s), Oral, qDay levothyroxine, 150 mcg= 1 tab(s), Oral, qDayAC lisinopril, 40 mg= 2 tab(s), Oral, Daily morphine, 2 mg= 1 mL, IV Push, q3h, PRN morphine, 4 mg= 1 mL, IV Push, q3h, PRN NS 1,000 mL, 1000 mL, Intravenous omeprazole, 40 mg= 1 cap(s), Oral, qDay Protonix, 40 mg, IV Push, qDayAC Tylenol, 650 mg= 2 tab(s), Oral, q4h, PRN Ultram, 50 mg= 1 tab(s), Oral, q6hr, PRN Zofran, 4 mg= 2 mL, IV Push, q4h, PRN Home Ambien 5 mg oral tablet, 5 mg= 1 tab(s), Oral, qHS, PRN DULoxetine 30 mg oral delayed release capsule, 30 mg= 1 cap(s), Oral, qDay, Not taking DULoxetine 60 mg oral delayed release capsule, 60 mg= 1 cap(s), Oral, qDay, Not taking gabapentin 100 mg oral capsule, 200 mg= 2 cap(s), Oral, BID gabapentin 300 mg oral capsule, 300 mg= 1 cap(s), Oral, qDay, PRN hydroCHLOROthiazide 25 mg oral tablet, 25 mg= 1 tab(s), Oral, qDay hydroCHLOROthiazide 50 mg oral tablet, 50 mg= 1 tab(s), Oral, Daily, 3 refills, Not taking levothyroxine, 150 mcg, Oral, qDay lisinopril 40 mg oral tablet, 40 mg= 1 tab(s), Oral, Daily, 3 refills, Not taking omeprazole 40 mg oral delayed release capsule, 40 mg= 1 cap(s), Oral, qDay, 3 refills, Not taking traMADol 50 mg oral tablet, 50 mg= 1 tab(s), Oral, q8h, PRN traZODone 50 mg oral tablet, 1-2 tab(s), Oral, qHS, PRN, 3 refills, Not taking Allergies Zyvox (Moderate) throat swelling erythromycin (Moderate) Hives penicillin (Moderate) Hives sulfa (Moderate) Hives vancomycin (Moderate) Red man syndrome Social History Alcohol Use: Current. 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 Diabetes: Grandparent and Grandparent. Hypertension: Mother, Father, Grandparent and Grandparent. Malignant tumor of lung: Mother. Stroke: Grandparent. Digitally Signed by MAHAD CID on 10/14/2024 12:07 PM [facility] [id number] Gastroenterology Consult note Date of Service 10/14/2024 Reason for Consultation increase lft Referring Physician fernando History of Present Illness Patient is a 53-year-old female that presented to for abdominal pain. She states that she had had some pain for the last couple of weeks on her left side after a fall. She initially managed herself at home however had increasing abdominal pain in epigastric region today and yesterday and so she went to [facility] for evaluation and was eventually transferred to [place] for furthermanagement. Patient states that she has a long history of alcohol abuse for couple of years where she was drinking 1/5 or so of vodka a week. She states she has been sober for some time up until about 2 weeks ago after she fell she said she started drinking wine again. She said she only had severalglasses and has really has not had anything since then. She states that she has not had any significant pain up until last night but has had a few episodes of some upper abdominal discomfort. She also states that she was admitted about a year ago to [facility] for pancreatitis but is uncertain at the time of what the cause of that pancreatitis was. Patient denies any nausea or vomiting. Denies anychest pain or shortness of breath. Has not really had much of an appetite. Denies any change in thecolor of her urine but did notice that her skin seem to be a little bit darker over the last several days. She had a lipase checked at the outlying facility that did have some mild elevation of 115. She also had some transaminase elevation with a alk phos of 200s AST of 271 and an ALT of 70. Total bili is noted to be 7.3. Her platelet count is normal at 214. She had a CT done at [facility] that did show findings concerning for a pancreatic pseudocyst of 5 x 6 x 5 cm and some soft tissue density surrounding the majority of tail that they suspected was related to that. There is also concern as to if this is actually necrosis or a pancreatic hemorrhage that could not be excluded. She does have a fatty liver noted with a prominent gallbladder but no stones or common on the common bile duct were documented at that time. Review of Systems 10 system review of systems was completed pertinent positive negatives are described above in HPI and are otherwise negative Physical Exam Vitals and Measurements T: 37.1 C (Oral) HR: 90 (Apical) RR: 16 BP: 140/95 SpO2: 93% HT: 157.5 cm WT: 81.8 kg BMI: 32.98 Weight Dosing Weight: 81.8 kg (10/14/24) General : patient resting in bed. Appears comfortable. HEENT: Head is normal non traumatic. Sclera icterus Neck: trachea midline Heart: regular rate and rhythm Lung: clear bilaterally to ascultation Abdomen: soft, minimal epigastric tender, bowel sounds present x 4. no distended. Obese Neuro: alert and oriented x3. speech is clear and regular Skin: warm and dry. no rashes noted. Jaundice Lab Results No 36 Hour Lab Data Imaging Results and Diagnostics reviewed CT from [facility] Assessment/Plan 1. Increased liver enzymes Patient with increased liver functions with findings concerning for a possible pancreatic pseudocyst would which would allude to the possibility of chronic pancreatitis. There is no common bile duct comment or calcification noted on the imaging so patient would benefit from further MRI of the pancreas to define exactly what this area or lesion might be. Due to the lack of information on regardingthe common bile duct will also order an MRCP with the significant elevation of her liver functions.However findings do appear consistent to also includes some form of relation to alcohol use with a AST ALT ratio. Patient states that she has not had any significant alcohol use but do question that b ased on her lab work. Suspect there could be a component about Here. In the meantime was did discuss with the primary care team. Will repeat labs in the morning include a CMP And an INR. Do agree with IV fluids and since patient's pain is fairly stable could give clear liquid diet pending on when the MRCP will take place. Patient will need to refrain and was stressed to avoid alcohol use long-term. Orders: MRI MRCP, 10/14/24 11:47:00 EDT, 10/14/24 11:47:00 EDT, Routine, increase lft, Wt k.8, Prior Valve Replacement: No, [facility], ME4E MRI Pancreas(Pancreas MRI), 10/14/24 11:46:00 EDT, 10/14/24 11:46:00 EDT, Routine, concern pancreatic pseudocyst, Wt k.8, Prior Valve Replacement: No, [facility], ME4E Prothrombin Time - Panel(PT/INR), 10/15/24 5:00:00 EDT, Next AM Draw (one day only), Blood, Once, Stop date 10/15/24 5:00:00 EDT Problem List/Past Medical History Ongoing Breast cancer Chronic left hip pain Chronic lower back pain GERD - Gastro-esophageal reflux disease Hot flashes Hypertension Hypothyroid Increased liver enzymes Insomnia Thyroid nodule Procedure/Surgical History Bilateral reconstruction of breasts: 01/13/18 Bilateral mastectomy: 09/09/17 section Arthroscopy of knee Abdominal hysterectomy Nasal septoplasty Medications Inpatient Ambien, 5 mg= 1 tab(s), Oral, qHS, PRN Dextrose 50% IV Push, 25 gram(s)= 50 mL, IV Push, AsDirected, PRN DuoNeb, 3 mL, Inhalation, q4hRT, PRN gabapentin, 200 mg= 2 cap(s), Oral, BID heparin 5000 units/mL injection, 5000 unit(s)= 1 mL, Subcutaneous, q8hr hydroCHLOROthiazide, 25 mg= 1 tab(s), Oral, qDay levothyroxine, 150 mcg= 1 tab(s), Oral, qDayAC lisinopril, 40 mg= 2 tab(s), Oral, Daily morphine, 2 mg= 1 mL, IV Push, q3h, PRN morphine, 4 mg= 1 mL, IV Push, q3h, PRN NS 1,000 mL, 1000 mL, Intravenous omeprazole, 40 mg= 1 cap(s), Oral, qDay Protonix, 40 mg, IV Push, qDayAC Tylenol, 650 mg= 2 tab(s), Oral, q4h, PRN Ultram, 50 mg= 1 tab(s), Oral, q6hr, PRN Zofran, 4 mg= 2 mL, IV Push, q4h, PRN Home Ambien 5 mg oral tablet, 5 mg= 1 tab(s), Oral, qHS, PRN DULoxetine 30 mg oral delayed release capsule, 30 mg= 1 cap(s), Oral, qDay, Not taking DULoxetine 60 mg oral delayed release capsule, 60 mg= 1 cap(s), Oral, qDay, Not taking gabapentin 100 mg oral capsule, 200 mg= 2 cap(s), Oral, BID gabapentin 300 mg oral capsule, 300 mg= 1 cap(s), Oral, qDay, PRN hydroCHLOROthiazide 25 mg oral tablet, 25 mg= 1 tab(s), Oral, qDay hydroCHLOROthiazide 50 mg oral tablet, 50 mg= 1 tab(s), Oral, Daily, 3 refills, Not taking levothyroxine, 150 mcg, Oral, qDay lisinopril 40 mg oral tablet, 40 mg= 1 tab(s), Oral, Daily, 3 refills, Not taking omeprazole 40 mg oral delayed release capsule, 40 mg= 1 cap(s), Oral, qDay, 3 refills, Not taking traMADol 50 mg oral tablet, 50 mg= 1 tab(s), Oral, q8h, PRN traZODone 50 mg oral tablet, 1-2 tab(s), Oral, qHS, PRN, 3 refills, Not taking Allergies Zyvox (Moderate) throat swelling erythromycin (Moderate) Hives penicillin (Moderate) Hives sulfa (Moderate) Hives vancomycin (Moderate) Red man syndrome Social History Alcohol Use: Current. 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 Diabetes: Grandparent and Grandparent. Hypertension: Mother, Father, Grandparent and Grandparent. Malignant tumor of lung: Mother. Stroke: Grandparent. Digitally Signed by MAHAD CID on 10/14/2024 12:07 PM [facility] [id number] History and physical note Date of Service 10/14/2024 Chief Complaint Chest pain History of Present Illness Ms.Shannon Adams is a 53 yr old obese lady with history of alcoholism, alcoholic pancreatitis, Elevated bilirubin, GERD, HTN, Hypothyroidism, recent fall presented to [facility] for Chest pain. CXR showed Left fifth, sixth rib fractures. Labs showed elevated bilirubin of 7.8, Elevated AST, ALT. Ptadmits to drinking few shots about a week ago. She states was an alcoholic remotely no longer drinks regularly, had few drinks for the first time in a long while recently. She admits to epigastric abdominal pain about 5 days ago. At [facility] CT abd/pelvis showed Diffusely atrophic pancreas consistent with pancreatitis. Lobular soft tissue density measuring 5*6 cm surrounding tail of pancreas related to peripancreaticfat necrosis, developing complex pseudocyst or peripancreatic hemorrhage. Pt c/o 7/10 Left sided CP now, denies any dizziness, denies cough or fever, no epigastric abdominalpain. Pt has no bloody stool. Labs from [facility] shows Alk phos of 261, Troponin t 34. AST 265, ALT 68. WBC 6.3, H/H:34. Platelet count [id number]. INR 1.3. Potassium 3.9. Creatinine 0.72. Total Bilirubin 7.3. Direct bilirubin 4.7. Review of Systems Pt c/o left sided CP. Denies SOB, denies abdominal pain or bloody stool. Physical Exam Vitals and Measurements T: 37.1 C (Oral) HR: 90 (Apical) RR: 16 BP: 140/95 SpO2: 93% HT: 157.5 cm WT: 81.8 kg BMI: 32.98 Weight Dosing Weight: 81.8 kg (10/14/24) Pt is awake, alert and oriented. HEENT: PERRLA, No pallor, + icterus cvs; S1, S2 regular rate and rhythm, no murmurs, rubs or gallops Lungs: Clear to Auscultation, No wheeze or crackles, unlabored. Chest: :Left sided flank tenderness to palpation Abd:Pt has no distension, guarding or rigidity. BS + Extremity: No clubbing, cyanosis or pedal edema Skin: No rash Neuro No focal deficits. Moves all four extremities equally. Lab Results No 36 Hour Lab Data Assessment/Plan GERD (gastroesophageal reflux disease) Pt having acute vs chronic pancreatitis, start liquid diet, check Lipase, amylase. Consult GI, ? MRCP. 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 Hypertension Continue Home meds, lisinopril, HCTZ. Hypothyroidism Continue Home levothyroxine dos,e check TSH. Chest Pain: Pt has Left sided Cp with left 5th, 6th rib fractures s/p recent fall. Start prn P.O and iv pain meds History of Alcoholism: Pt denies daily alcohol intake, unlikely to go into alcohol withdrawal. Will monitor. Full code, step down monitored bed. Discussed with Gastro, nursing. Pt does not wish her case discussed with her Boyfriend Kirk Problem List/Past Medical History Ongoing Breast cancer Chronic left hip pain Chronic lower back pain GERD (gastroesophageal reflux disease) GERD - Gastro-esophageal reflux disease Hot flashes Hypertension Hypertension Hypothyroid Insomnia Insomnia Thyroid nodule Procedure/Surgical History Bilateral reconstruction of breasts: 01/13/18 Bilateral mastectomy: 09/09/17 section Arthroscopy of knee Abdominal hysterectomy Nasal septoplasty Medications Home Medications (13) Active Ambien 5 mg oral tablet 5 mg = 1 tab(s), PRN, Oral, qHS DULoxetine 30 mg oral delayed release capsule 30 mg = 1 cap(s), Oral, qDay DULoxetine 60 mg oral delayed release capsule 60 mg = 1 cap(s), Oral, qDay gabapentin 100 mg oral capsule 200 mg = 2 cap(s), Oral, BID gabapentin 300 mg oral capsule 300 mg = 1 cap(s), PRN, Oral, qDay hydroCHLOROthiazide 25 mg oral tablet 25 mg = 1 tab(s), Oral, qDay hydroCHLOROthiazide 50 mg oral tablet 50 mg = 1 tab(s), Oral, Daily levothyroxine 125 mcg (0.125 mg) oral tablet 125 mcg = 1 tab(s), Oral, qDay levothyroxine 137 mcg (0.137 mg) oral tablet 137 mcg = 1 tab(s), Oral, qDay lisinopril 40 mg oral tablet 40 mg = 1 tab(s), Oral, Daily omeprazole 40 mg oral delayed release capsule 40 mg = 1 cap(s), Oral, qDay traMADol 50 mg oral tablet 50 mg = 1 tab(s), PRN, Oral, q8h traZODone 50 mg oral tablet 1-2 tab(s), PRN, Oral, qHS Allergies Zyvox (Moderate) throat swelling erythromycin (Moderate) Hives penicillin (Moderate) Hives sulfa (Moderate) Hives vancomycin (Moderate) Red man syndrome Social History Alcohol Use: Current. 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 Diabetes: Grandparent and Grandparent. Hypertension: Mother, Father, Grandparent and Grandparent. Malignant tumor of lung: Mother. Stroke: Grandparent. Health Status Family Member(s) Immunizations No qualifying data available. Code Status No qualifying data available. Digitally Signed by RUBEN LOPEZ MD on 10/14/2024 06:12 PM [facility] [id number] Discharge summary Author Alvino [facility] Note Date/Time October 14, 2024 7:3 3am [facility] Medical Records Department [address] [place] [address] Emergency Department Summary 10/14/24 MR#: [id number] Acct: [id number] Name: ORA ADAMS Rep #:[id number] : [id number] From: Alvino mark DO PCP: AUGUSTINA Funes Status:REG ER Location: ED HPI History of Present Illness Chief Complaint: Chest Pain Narrative Narrative: Chief complaint and HPI: Chest pain. 53-year-old female with past medical history of alcoholic pancreatitis, breast cancer, HTN presents for evaluation ofleft sided chest pain. Patient states on Wednesday she had a mechanical fall on ice. She states she landed on her left side. She has bruises noted to the leftarm. Did not hit her head. No LOC. Patient states she started having some left-sided chest pain around 0. She states it radiates into her left arm andshoulder. It is located under her left breast and radiates to her left side. Describes it as crampy. Has not taken anything for the pain. She denies any shortness of breath, cough, lightheadedness, diaphoresis, nausea, vomiting. Patient states that she did have a lot of watery diarrhea today. She states on Wednesday she was having some epigastric abdominal pain and thinks she may have hada pancreatitis flare as she did have 4 alcoholic drinks last week. She states that she has had no alcohol since. She states that she is no longer a daily drinker. Denies any alcohol use today. Denies any dysuria, bilateral lower extremity swelling or pain. Review of systems: See HPI Medications: As listed on the chart Allergies: As listed on the chart PFSH: Per chart Vital signs: As listed on the chart. Reviewed. Physical exam: Gen: A&O x3, NAD Head: Normocephalic, atraumatic Eyes: Mild sclera icterus, conjunctiva clear, PERRL, EOMI ENT: Moist mucous membranes Neck: Trachea midline, No JVD CV: RRR, no murmurs, patient has tenderness to palpation of the left lateral ribs-no ecchymosis or crepitus, no peripheral edema Resp: Lungs CTA BL, no w/r/c GI: Abd soft, non-distended, non-tender, no r/r/g Musc: Full ROM, no deformity, multiple old ecchymosis to the left upper extremity from her recent fall Skin: Warm, mildly jaundice Neuro: Alert, oriented, grossly intact, sensation intact Psych: Cooperative, appropriate mood and affect [facility] Medical History Alcohol abuse History of breast cancer HTN (hypertension) Hypothyroid Home Medications ?Medication ?Instructions ?Recorded ?Last Taken ?Type omeprazole 40 mg capsule,delayed 40 mg PO DAILY GERD 0 12/02/20 05/27/24 History release levothyroxine 150 mcg tablet 150 mcg PO DAILY thyroid 02/20/24 05/27/24 History lorazepam 0.5 mg tablet (Ativan) 0.5 mg PO DAILY PRN s leep 05/28/24 05/28/24 History ondansetron 4 mg disintegrating 4 mg PO Q6H PRN PRN Na usea #15 tabs 05/28/24 Unknown Rx tablet potassium chloride 20 mEq 20 meq PO BID supplement #10 tabs 05/28/24 Unknown Rx tablet,extended release zolpidem 5 mg tablet 5 mg PO QHS PRN sleep Unknown History gabapentin 100 mg capsule 100 mg PO BID 10/14/24 Unkno wn History gabapentin 300 mg capsule 300 mg PO QHS PRN pain 10/14 Unknown History Allergy/AdvReac Type Severity Reaction Status Date / Time Penicillins Allergy Hives Verified 10/14/24 02:20 Sulfa (Sulfonamide Allergy Hives Verified 10/14/24 02:20 Antibiotics) vancomycin Allergy Hives Verified 10/14/24 02:20 Family History Other Alcoholism Surgical History H/O mastectomy H/O: hysterectomy Social History Smoking Status: Former smoker EXAM Physical Exam Const Vital Signs: 10/14/24 02:20 10/14/24 02:20 10/14/24 02:25 Temperature 98.6 F 98.6 F Temperature Source Oral Oral Pulse Rate 95 93 Respiratory Rate 20 H 20 H Respiratory Effort Normal Blood Pressure 153/96 H 153/96 H Blood Pressure Mean 115 115 Pulse Ox 95 95 Oxygen Delivery Method Room Air Room Air 10/14/24 03:25 10/14/24 04:00 10/14/24 05:00 Temperature 98.6 F Temperature Source Oral Pulse Rate 91 80 81 Respiratory Rate 18 19 H 18 Respiratory Effort Blood Pressure 169/113 H 157/108 H 165/107 H Blood Pressure Mean 131 124 126 Pulse Ox 94 96 98 Oxygen Delivery Method Room Air Room Air Room Air 10/14/24 06:00 Temperature Temperature Source Pulse Rate 83 Respiratory Rate 16 Respiratory Effort Blood Pressure 143/90 H Blood Pressure Mean 107 Pulse Ox 94 Oxygen Delivery Method Room Air MDM MDM MDM Narrative Medical decision making narrative: 53-year-old female with past medical history of alcoholic pancreatitis, breast cancer, HTN presents for evaluation of left sided chest pain. Associated symptoms are a fall on the left side on Wednesday as well as watery diarrhea. Differential diagnosis includes but is not limited to musculoskeletal strain, electrolyte abnormality, dehydration, ACS, rib fracture, pancreatitis, cirrhosis, UTI. Aspirin and NS bolus ordered. Laboratory workup ordered including chest x-ray including the left ribs. EKG and chest x-ray reviewed below. Patient has left fifth and sixth rib fractures. Suspect these are acuteas patient fell on her left side. She is tender to palpation in this area on physical exam. CBC without leukocytosis or anemia. CMP shows baseline hyponatremia. No JUAN DAVID. Patient has hyperbilirubinemia of 7.28. Will order direct bilirubin. She has transaminitis with an AST of 271 and an ALT of 70. This is up-trending from June. Alkaline phosphatase 263. Lipase 112. Given patient's laboratory findings she would benefit from upper quadrant abdominal ultrasound. I do not have this available therefore CT abdomen pelvis ordered. Troponin 34. Will get 2-hour troponin. UA positive for urobilinogen. Negative for UTI. CT abdomen pelvis shows diffuse atrophic appearing pancreas. Findings are consistent with pancreatitis with lobular soft tissue density surrounding the majority of the tail the pancreas measuring 5 x 6 x 5.3 cm may be related to peripancreatic fat necrosis/phlegmon with developing complex pseudocyst or peripancreatic hemorrhage not entirely excluded. Mild adjacent fat stranding/edema. Small amount of fluid along the upper greater curvature the stomach left upper quadrant. Enlarged markedly fatty appearing liver. Gallbladder is prominent in size without findings of acute cholecystitis. Patient currently not reporting any abdominal pain. She is nontender on physical exam. Suspect more of a chronic pancreatitis. Repeat troponin 19. INR 1.3. Direct bilirubin is 4.72. Patient will warrant further GI workup for her CT abdomen pelvis findings as well as jaundice with hyperbilirubinemia. Patient was updated of all the results and confirmed understand of the plan. I do feel that her left-sided chest pain is from her rib fractures. She currentlystates her pain is improving. I do not have GI on consult today therefore hospitalist was contacted for admission. I spoke with Dr. Plata who recommend the patient be transferred. [facility] transfer line contacted, no beds available. Will contact [facility]. I spoke with [facility] Transfer line as well as hospitalist Dr. Chaparro. He accepted admission. They do not have any beds available. States that is may take days. They will keep her on their list. Patient does have [facility]. [facility] recommended trying [place] as well. They will be contacted. I spoke with [place] transfer line. Given that patient is within their 14 days of trauma, they would like me to speak to the ERphysician to make sure that the patient does not need to be transferred as a trauma. I do not personally feel that the patient need transfer to trauma. , ER physician agreed that patient could be a medical transfer. I spoke with hospitalist, Dr. Lopez. He will accepted admission to [facility] as well as GI is in agreement. Patient signed out to oncoming physician. Plan is to transfer to outlying facility, [facility] vs. [facility]. EKG: Interpreted by me/EM physician: EKG shows normal sinus rhythm without any acute ischemic changes. Heart rate 82. This was compared to previous EKG and similar. Diagnostic: Interpreted by me/EM physician: Chest x-ray without pneumonia, effusion, cardiomegaly, pneumothorax. There is left fifth and sixth rib fracture which is consistent where the patient is tender on physical exam. She also has old lateral right ninth rib fracture deformity per radiology. Impression: 1. Left fifth and sixth rib fractures 2. Mechanical fall 3. Hyperbilirubinemia with jaundice 4. Transaminitis 5. Chronic pancreatitis with suspected with lobular soft tissue density surrounding the majority of the tail the pancreas measuring 5 x 6 x 5.3 cm may be related to peripancreatic fat necrosis/phlegmon with developing complex pseudocyst or peripancreatic hemorrhage not entirely excluded. Lab Data Labs: Laboratory Results - last 24 hr 10/14/24 10/14/24 10/14/24 02:52 02:52 02:52 WBC 6.3 RBC 3.51 L Hgb 12.0 Hct 34.9 L MCV 99.4 H MCH 34.2 H MCHC 34.4 RDW Std Deviation 77.2 H RDW Coeff of [place] 22.2 H Plt Count 214 MPV 9.2 Immature Gran % (Auto) 0.600 Neut % (Auto) 57.2 Lymph % (Auto) 26.2 [place] % (Auto) 11.0 H Eos % (Auto) 3.7 Baso % (Auto) 1.3 H Absolute Neuts (auto) 3.6 Absolute Lymphs (auto) 1.65 Nucleated RBC % 0.3 Stomatocytes 2+ PT 16.0 H INR 1.3 Sodium 132 L Potassium 3.9 Chloride 97 L Carbon Dioxide 22.4 Anion Gap 13 BUN 5 Creatinine 0.72 Estim Creat Clear Calc 93.85 Est GFR (MDRD) Non-Af 98 BUN/Creatinine Ratio 6.2 L Glucose 105 H Calcium 8.5 Total Bilirubin 7.28 H 7.32 H Direct Bilirubin 4.72 H AST 271 H 265 H ALT 70 H Alkaline Phosphatase Troponin T High Sens Troponin T Hi Sens 2 Hr Total Protein Albumin Globulin Albumin/Globulin Ratio Lipase Urine Color Urine Clarity Urine pH Ur Specific [place] Urine Protein Urine Glucose (UA) Urine Ketones Urine Occult Blood Urine Nitrite Urine Bilirubin Urine Urobilinogen Ur Leukocyte Esterase Urine RBC Urine WBC Ur Squamous Epith Cells Urine Bacteria Urine Mucus 10/14/24 10/14/24 10/14/24 02:52 02:52 02:52 WBC RBC Hgb Hct MCV MCH MCHC RDW Std Deviation RDW Coeff of [place] Plt Count MPV Immature Gran % (Auto) Neut % (Auto) Lymph % (Auto) [place] % (Auto) Eos % (Auto) Baso % (Auto) Absolute Neuts (auto) Absolute Lymphs (auto) Nucleated RBC % Stomatocytes PT INR Sodium Potassium Chloride Carbon Dioxide Anion Gap BUN Creatinine Estim Creat Clear Calc Est GFR (MDRD) Non-Af BUN/Creatinine Ratio Glucose Calcium Total Bilirubin Direct Bilirubin AST ALT 68 H Alkaline Phosphatase 263 H 261 H Troponin T High Sens 34 H Troponin T Hi Sens 2 Hr Total Protein 6.1 6.1 Albumin 3.0 L Globulin Albumin/Globulin Ratio Lipase Urine Color Urine Clarity Urine pH Ur Specific [place] Urine Protein Urine Glucose (UA) Urine Ketones Urine Occult Blood Urine Nitrite Urine Bilirubin Urine Urobilinogen Ur Leukocyte Esterase Urine RBC Urine WBC Ur Squamous Epith Cells Urine Bacteria Urine Mucus 10/14/24 10/14/24 10/14/24 02:52 02:52 03:36 WBC RBC Hgb Hct MCV MCH MCHC RDW Std Deviation RDW Coeff of [place] Plt Count MPV Immature Gran % (Auto) Neut % (Auto) Lymph % (Auto) [place] % (Auto) Eos % (Auto) Baso % (Auto) Absolute Neuts (auto) Absolute Lymphs (auto) Nucleated RBC % Stomatocytes PT INR Sodium Potassium Chloride Carbon Dioxide Anion Gap BUN Creatinine Estim Creat Clear Calc Est GFR (MDRD) Non-Af BUN/Creatinine Ratio Glucose Calcium Total Bilirubin Direct Bilirubin AST ALT Alkaline Phosphatase Troponin T High Sens Troponin T Hi Sens 2 Hr Total Protein Albumin 3.0 L Globulin 3.1 3.1 Albumin/Globulin Ratio 1.0 Lipase 112 H Urine Color Yellow Urine Clarity Clear Urine pH 7.0 Ur Specific [place] 1.010 Urine Protein 30 H Urine Glucose (UA) Normal Urine Ketones Negative Urine Occult Blood 10 H Urine Nitrite Negative Urine Bilirubin Negative Urine Urobilinogen 4 H Ur Leukocyte Esterase Negative Urine RBC 0 SEEN Urine WBC 0 SEEN Ur Squamous Epith Cells 0 SEEN Urine Bacteria 0 SEEN Urine Mucus 0 SEEN 10/14/24 04:58 WBC RBC Hgb Hct MCV MCH MCHC RDW Std Deviation RDW Coeff of [place] Plt Count MPV Immature Gran % (Auto) Neut % (Auto) Lymph % (Auto) [place] % (Auto) Eos % (Auto) Baso % (Auto) Absolute Neuts (auto) Absolute Lymphs (auto) Nucleated RBC % Stomatocytes PT INR Sodium Potassium Chloride Carbon Dioxide Anion Gap BUN Creatinine Estim Creat Clear Calc Est GFR (MDRD) Non-Af BUN/Creatinine Ratio Glucose Calcium Total Bilirubin Direct Bilirubin AST ALT Alkaline Phosphatase Troponin T High Sens Troponin T Hi Sens 2 Hr 19 H Total Protein Albumin Globulin Albumin/Globulin Ratio Lipase Urine Color Urine Clarity Urine pH Ur Specific [place] Urine Protein Urine Glucose (UA) Urine Ketones Urine Occult Blood Urine Nitrite Urine Bilirubin Urine Urobilinogen Ur Leukocyte Esterase Urine RBC Urine WBC Ur Squamous Epith Cells Urine Bacteria Urine Mucus Radiography Diagnostic Testing: Clinical Impression(s) from Imaging Studies Ribs w/Chest X-Ray 10/14/24 03:13 IMPRESSION: Anterolateral left 5th and 6th rib fracture deformities, correlate for age/focaltenderness. No pneumothorax or pleural effusion identified at this time. Reading Location: [facility] Abdomen/Pelvis CT 10/14/24 04:33 IMPRESSION: Diffusely atrophic appearing pancreas. Findings are consistent with pancreatitiswith lobular soft tissue density surrounding majority of the tail of the pancreas measuring 5 x 6 x 5.3 cm axial 45, coronal 65 and sagittal 116 maybe related to peripancreatic fat necrosis/phlegmon with developing complex pseudocyst or peripancreatic hemorrhage not entirely excluded. Mild adjacent fat stranding, edema. Small amount of fluid along the upper greater curvature of the stomach left upper quadrant axial 31 and coronal 67. Enlarged, markedly fatty appearing liver again seen. The gallbladder is prominent size and may represent prolonged fasting state without evidence of wall thickening or pericholecystic stranding/inflammatory change or gallbladder fossa fluid seen. Reading Location: [facility] Discharge Plan Triage Chief Complaint: Chest Pain ED Provider: Alvino Mercado Dx/Rx/DC Orders Prescriptions: No Action omeprazole 40 mg capsule,delayed release(DR/EC) 40 mg PO DAILY levothyroxine 150 mcg tablet 150 mcg PO DAILY gabapentin 100 mg capsule 100 mg PO BID gabapentin 300 mg capsule 300 mg PO QHS PRN (Reason: pain) zolpidem 5 mg tablet 5 mg PO QHS PRN lorazepam [Ativan] 0.5 mg tablet 0.5 mg PO DAILY PRN (Reason: sleep) ondansetron 4 mg tablet,disintegrating 4 mg PO Q6H PRN PRN (Reason: Nausea) Qty: 15 0RF potassium chloride 20 mEq tablet extended release 20 meq PO BID Qty: 10 0RF Primary Care Provider: Alirio Woodson NP Referrals: Alirio Woodson NP, [facility] [Primary Care Provider] - Print Language: Iraqi What to do if you have Problems For any increased pain, shortness of breath, bleeding, nausea or vomiting, chestpain, or any unexpected problems, contact your Primary Care Provider. Call [facility] ([phone]) or report to the closest Emergency Room. Call 911 if necessary. 10/14/24 0733 <Electronically signed by Alvino Mercado DO> Cosigner Signature (if applicable): CC: AUGUSTINA Woodson ~ Signed [facility] Work Phone: [phone] Discharge summary [facility] Medical Records Department [address] [place] [address] Emergency Department Summary 10/14/24 MR#: [id number] Acct: [id number] Name: ORA ADAMS Rep #:[id number] : 1970 53 From: Alvino mark DO PCP: AUGUSTINA Funes Status:REG ER Location: ED HPI History of Present Illness Chief Complaint: Chest Pain Narrative Narrative: Chief complaint and HPI: Chest pain. 53-year-old female with past medical history of alcoholic pancreatitis, breast cancer, HTN presents for evaluation ofleft sided chest pain. Patient states on Wednesday she had a mechanical fall on ice. She states she landed on her left side. She has bruises noted to the leftarm. Did not hit her head. No LOC. Patient states she started having some left-sided chestpain around 1900. She states it radiates into her left arm andshoulder. It is located under her left breast and radiates to her left side. Describes it as crampy. Has not taken anything for the pain.She denies any shortness of breath, cough, lightheadedness, diaphoresis, nausea, vomiting. Patient states that she did have a lot of watery diarrhea today. She states on Wednesday she was having some epigastric abdominal pain and thinks she may have hada pancreatitis flare as she did have 4 alcoholic drinks last week. She states that she has had no alcohol since. She states that she is no longer a daily drinker. Denies any alcohol use today. Denies any dysuria, bilateral lower extremity swelling or pain. Review of systems: See HPI Medications: As listed on the chart Allergies: As listed on the chart PFSH: Per chart Vital signs: As listed on the chart. Reviewed. Physical exam: Gen: A&O x3, NAD Head: Normocephalic, atraumatic Eyes: Mild sclera icterus, conjunctiva clear, PERRL, EOMI ENT: Moist mucous membranes Neck: Trachea midline, No JVD CV: RRR, no murmurs, patient has tenderness to palpation of the left lateral ribs-no ecchymosis or crepitus, no peripheral edema Resp: Lungs CTA BL, no w/r/c GI: Abd soft, non-distended, non-tender, no r/r/g Musc: Full ROM, no deformity, multiple old ecchymosis to the left upper extremity from her recent fall Skin: Warm, mildly jaundice Neuro: Alert, oriented, grossly intact, sensation intact Psych: Cooperative, appropriate mood and affect [facility] Medical History Alcohol abuse History of breast cancer HTN (hypertension) Hypothyroid Home Medications ?Medication ?Instructions ?Recorded ?Last Taken ?Type omeprazole 40 mg capsule,delayed 40 mg PO DAILY GERD 0 12/02/20 05/27/24 History release levothyroxine 150 mcg tablet 150 mcg PO DAILY thyroid 02/20/24 05/27/24 History lorazepam 0.5 mg tablet (Ativan) 0.5 mg PO DAILY PRN s leep 05/28/24 05/28/24 History ondansetron 4 mg disintegrating 4 mg PO Q6H PRN PRN Na usea #15 tabs 05/28/24 Unknown Rx tablet potassium chloride 20 mEq 20 meq PO BID supplement #10 tabs 05/28/24 Unknown Rx tablet,extended release zolpidem 5 mg tablet 5 mg PO QHS PRN sleep Unknown History gabapentin 100 mg capsule 100 mg PO BID 10/14/24 Unkno wn History gabapentin 300 mg capsule 300 mg PO QHS PRN pain 10/14 Unknown History Allergy/AdvReac Type Severity Reaction Status Date / Time Penicillins Allergy Hives Verified 10/14/24 02:20 Sulfa (Sulfonamide Allergy Hives Verified 10/14/24 02:20 Antibiotics) vancomycin Allergy Hives Verified 10/14/24 02:20 Family History Other Alcoholism Surgical History H/O mastectomy H/O: hysterectomy Social History Smoking Status: Former smoker EXAM Physical Exam Const Vital Signs: 10/14/24 02:20 10/14/24 02:20 10/14/24 02:25 Temperature 98.6 F 98.6 F Temperature Source Oral Oral Pulse Rate 95 93 Respiratory Rate 20 H 20 H Respiratory Effort Normal Blood Pressure 153/96 H 153/96 H Blood Pressure Mean 115 115 Pulse Ox 95 95 Oxygen Delivery Method Room Air Room Air 10/14/24 03:25 10/14/24 04:00 10/14/24 05:00 Temperature 98.6 F Temperature Source Oral Pulse Rate 91 80 81 Respiratory Rate 18 19 H 18 Respiratory Effort Blood Pressure 169/113 H 157/108 H 165/107 H Blood Pressure Mean 131 124 126 Pulse Ox 94 96 98 Oxygen Delivery Method Room Air Room Air Room Air 10/14/24 06:00 Temperature Temperature Source Pulse Rate 83 Respiratory Rate 16 Respiratory Effort Blood Pressure 143/90 H Blood Pressure Mean 107 Pulse Ox 94 Oxygen Delivery Method Room Air MDM MDM MDM Narrative Medical decision making narrative: 53-year-old female with past medical history of alcoholic pancreatitis, breast cancer, HTN presentsfor evaluation of left sided chest pain. Associated symptoms are a fall on the left side on Wednesday as well as watery diarrhea. Differential diagnosis includes but is not limited to musculoskeletal strain, electrolyte abnormality, dehydration, ACS, rib fracture, pancreatitis, cirrhosis, UTI. Aspirinand NS bolus ordered. Laboratory workup ordered including chest x-ray including the left ribs. EKG and chest x-ray reviewed below. Patient has left fifth and sixth rib fractures. Suspect these are acuteas patient fell on her left side. She is tender to palpation in this area on physical exam. CBC without leukocytosis or anemia. CMP shows baseline hyponatremia. No JUAN DAVID. Patient has hyperbilirubinemia of 7.28. Will order direct bilirubin. She has transaminitis with an AST of 271 and an ALT of 70. This is up-trending from June. Alkaline phosphatase 263. Lipase 112. Given patient's laboratory findings she would benefit from upper quadrant abdominal ultrasound. I do not have this available therefore CT abdomen pelvis ordered. Troponin 34. Will get 2-hour troponin. UA positive for urobilinogen. Negative for UTI. CT abdomen pelvis shows diffuse atrophic appearing pancreas. Findings are consistent with pancreatitis with lobular soft tissue density surrounding the majority of the tail the pancreas measuring 5 x 6 x 5.3 cm may be related to peripancreatic fat necrosis/phlegmon with developing complex pseudocyst or peripancreatic hemorrhage not entirely excluded. Mild adjacent fat stranding/edema. Small amount of fluid along the upper greater curvature the stomach left upper quadrant. Enlarged markedly fatty appearing liver. Gallbladder is prominent in size without findings of acute ch olecystitis. Patient currently not reporting any abdominal pain. She is nontender on physical exam.Suspect more of a chronic pancreatitis. Repeat troponin 19. INR 1.3. Direct bilirubin is 4.72. Patient will warrant further GI workup for her CT abdomen pelvis findings as well as jaundice with hyperb ilirubinemia. Patient was updated of all the results and confirmed understand of the plan. I do feel that her left-sided chest pain is from her rib fractures. She currentlystates her pain is improving. I do not have GI on consult today therefore hospitalist was contacted for admission. I spoke withDr. Plata who recommend the patient be transferred. [facility] transfer line contacted, no bedsavailable. Will contact [facility]. I spoke with [facility] Transfer line as well as hospitalist Dr. Chaparro. He accepted admission. They do not have any beds available. States that is may take days. They will keep her on their list. Patient does have [facility]. [facility] recommended trying [facility] as well. They will be contacted. I spoke with [place] transfer line. Given that patient is within their 14 days of trauma, they would like me to speak to the ERphysician to make sure that the patient does not need to be transferred as a trauma. I do not personally feel that the patient need transfer to trauma. , ER physician agreed that patient could be a medical transfer. I spoke with hospitalist, Dr. Lopez. He will accepted admission to [facility] as well as GI is in agreement. Patient signed out to oncoming physician. Plan is to transfer to outlying facility, [facility] vs. [facility]. EKG: Interpreted by me/EM physician: EKG shows normal sinus rhythm without any acute ischemic changes. Heart rate 82. This was compared to previous EKG and similar. Diagnostic: Interpreted by me/EM physician: Chest x-ray without pneumonia, effusion, cardiomegaly, pneumothorax. There is left fifth and sixth rib fracture which is consistent where the patient is tender on physical exam. She also has old lateral right ninth rib fracture deformity per radiology. Impression: 1. Left fifth and sixth rib fractures 2. Mechanical fall 3. Hyperbilirubinemia with jaundice 4. Transaminitis 5. Chronic pancreatitis with suspected with lobular soft tissue density surrounding the majority ofthe tail the pancreas measuring 5 x 6 x 5.3 cm may be related to peripancreatic fat necrosis/phlegmon with developing complex pseudocyst or peripancreatic hemorrhage not entirely excluded. Lab Data Labs: Laboratory Results - last 24 hr 10/14/24 10/14/24 10/14/24 02:52 02:52 02:52 WBC 6.3 RBC 3.51 L Hgb 12.0 Hct 34.9 L MCV 99.4 H MCH 34.2 H MCHC 34.4 RDW Std Deviation 77.2 H RDW Coeff of [place] 22.2 H Plt Count 214 MPV 9.2 Immature Gran % (Auto) 0.600 Neut % (Auto) 57.2 Lymph % (Auto) 26.2 [place] % (Auto) 11.0 H Eos % (Auto) 3.7 Baso % (Auto) 1.3 H Absolute Neuts (auto) 3.6 Absolute Lymphs (auto) 1.65 Nucleated RBC % 0.3 Stomatocytes 2+ PT 16.0 H INR 1.3 Sodium 132 L Potassium 3.9 Chloride 97 L Carbon Dioxide 22.4 Anion Gap 13 BUN 5 Creatinine 0.72 Estim Creat Clear Calc 93.85 Est GFR (MDRD) Non-Af 98 BUN/Creatinine Ratio 6.2 L Glucose 105 H Calcium 8.5 Total Bilirubin 7.28 H 7.32 H Direct Bilirubin 4.72 H AST 271 H 265 H ALT 70 H Alkaline Phosphatase Troponin T High Sens Troponin T Hi Sens 2 Hr Total Protein Albumin Globulin Albumin/Globulin Ratio Lipase Urine Color Urine Clarity Urine pH Ur Specific [place] Urine Protein Urine Glucose (UA) Urine Ketones Urine Occult Blood Urine Nitrite Urine Bilirubin Urine Urobilinogen Ur Leukocyte Esterase Urine RBC Urine WBC Ur Squamous Epith Cells Urine Bacteria Urine Mucus 10/14/24 10/14/24 10/14/24 02:52 02:52 02:52 WBC RBC Hgb Hct MCV MCH MCHC RDW Std Deviation RDW Coeff of [place] Plt Count MPV Immature Gran % (Auto) Neut % (Auto) Lymph % (Auto) [place] % (Auto) Eos % (Auto) Baso % (Auto) Absolute Neuts (auto) Absolute Lymphs (auto) Nucleated RBC % Stomatocytes PT INR Sodium Potassium Chloride Carbon Dioxide Anion Gap BUN Creatinine Estim Creat Clear Calc Est GFR (MDRD) Non-Af BUN/Creatinine Ratio Glucose Calcium Total Bilirubin Direct Bilirubin AST ALT 68 H Alkaline Phosphatase 263 H 261 H Troponin T High Sens 34 H Troponin T Hi Sens 2 Hr Total Protein 6.1 6.1 Albumin 3.0 L Globulin Albumin/Globulin Ratio Lipase Urine Color Urine Clarity Urine pH Ur Specific [place] Urine Protein Urine Glucose (UA) Urine Ketones Urine Occult Blood Urine Nitrite Urine Bilirubin Urine Urobilinogen Ur Leukocyte Esterase Urine RBC Urine WBC Ur Squamous Epith Cells Urine Bacteria Urine Mucus 10/14/24 10/14/24 10/14/24 02:52 02:52 03:36 WBC RBC Hgb Hct MCV MCH MCHC RDW Std Deviation RDW Coeff of [place] Plt Count MPV Immature Gran % (Auto) Neut % (Auto) Lymph % (Auto) [place] % (Auto) Eos % (Auto) Baso % (Auto) Absolute Neuts (auto) Absolute Lymphs (auto) Nucleated RBC % Stomatocytes PT INR Sodium Potassium Chloride Carbon Dioxide Anion Gap BUN Creatinine Estim Creat Clear Calc Est GFR (MDRD) Non-Af BUN/Creatinine Ratio Glucose Calcium Total Bilirubin Direct Bilirubin AST ALT Alkaline Phosphatase Troponin T High Sens Troponin T Hi Sens 2 Hr Total Protein Albumin 3.0 L Globulin 3.1 3.1 Albumin/Globulin Ratio 1.0 Lipase 112 H Urine Color Yellow Urine Clarity Clear Urine pH 7.0 Ur Specific [place] 1.010 Urine Protein 30 H Urine Glucose (UA) Normal Urine Ketones Negative Urine Occult Blood 10 H Urine Nitrite Negative Urine Bilirubin Negative Urine Urobilinogen 4 H Ur Leukocyte Esterase Negative Urine RBC 0 SEEN Urine WBC 0 SEEN Ur Squamous Epith Cells 0 SEEN Urine Bacteria 0 SEEN Urine Mucus 0 SEEN 10/14/24 04:58 WBC RBC Hgb Hct MCV MCH MCHC RDW Std Deviation RDW Coeff of [place] Plt Count MPV Immature Gran % (Auto) Neut % (Auto) Lymph % (Auto) [place] % (Auto) Eos % (Auto) Baso % (Auto) Absolute Neuts (auto) Absolute Lymphs (auto) Nucleated RBC % Stomatocytes PT INR Sodium Potassium Chloride Carbon Dioxide Anion Gap BUN Creatinine Estim Creat Clear Calc Est GFR (MDRD) Non-Af BUN/Creatinine Ratio Glucose Calcium Total Bilirubin Direct Bilirubin AST ALT Alkaline Phosphatase Troponin T High Sens Troponin T Hi Sens 2 Hr 19 H Total Protein Albumin Globulin Albumin/Globulin Ratio Lipase Urine Color Urine Clarity Urine pH Ur Specific [place] Urine Protein Urine Glucose (UA) Urine Ketones Urine Occult Blood Urine Nitrite Urine Bilirubin Urine Urobilinogen Ur Leukocyte Esterase Urine RBC Urine WBC Ur Squamous Epith Cells Urine Bacteria Urine Mucus Radiography Diagnostic Testing: Clinical Impression(s) from Imaging Studies Ribs w/Chest X-Ray 10/14/24 03:13 IMPRESSION: Anterolateral left 5th and 6th rib fracture deformities, correlate for age/focaltenderness. No pneumothorax or pleural effusion identified at this time. Reading Location: [facility] Abdomen/Pelvis CT 10/14/24 04:33 IMPRESSION: Diffusely atrophic appearing pancreas. Findings are consistent with pancreatitiswith lobular soft tissue density surrounding majority of the tail of the pancreas measuring 5 x 6 x 5.3 cm axial 45, coronal 65 and sagittal 116maybe related to peripancreatic fat necrosis/phlegmon with developing complex pseudocyst or peripancreatic hemorrhage not entirely excluded. Mild adjacent fat stranding, edema. Small amount of fluid along the upper greater curvature of the stomach left upper quadrant axial 31 and coronal 67. Enlarged, markedly fatty appearing liver again seen. The gallbladder is prominent size and may represent prolonged fasting state without evidence of wall thickening or pericholecystic stranding/inflammatory change or gallbladderfossa fluid seen. Reading Location: [facility] Discharge Plan Triage Chief Complaint: Chest Pain ED Provider: Alvino Mercado Dx/Rx/DC Orders Prescriptions: No Action omeprazole 40 mg capsule,delayed release(DR/EC) 40 mg PO DAILY levothyroxine 150 mcg tablet 150 mcg PO DAILY gabapentin 100 mg capsule 100 mg PO BID gabapentin 300 mg capsule 300 mg PO QHS PRN (Reason: pain) zolpidem 5 mg tablet 5 mg PO QHS PRN lorazepam [Ativan] 0.5 mg tablet 0.5 mg PO DAILY PRN (Reason: sleep) ondansetron 4 mg tablet,disintegrating 4 mg PO Q6H PRN PRN (Reason: Nausea) Qty: 15 0RF potassium chloride 20 mEq tablet extended release 20 meq PO BID Qty: 10 0RF Primary Care Provider: Alirio Woodson NP Referrals: Alirio Woodson STEWARD/STEWARDESS BATH, STEWARD/STEWARDESS BATH-C [Primary Care Provider] - Print Language: Iraqi What to do if you have Problems For any increased pain, shortness of breath, bleeding, nausea or vomiting, chestpain, or any unexpected problems, contact your Primary Care Provider. Call [facility] ([phone]) or report tothe closest Emergency Room. Call 911 if necessary. 10/14/24 0733 Cosigner Signature (if applicable): CC: STEWARD/STEWARDESS BATH-C Alirio Woodson ~ Signed [facility]03-22-2025 Radiology Diagnostic study note [facility] Imaging Services [address] [place], [place] [id number] Abdomen/Pelvis W IV Cont ONLY MR#: [id number] Acct: [id number] Name: ORA ADAMS Rep #: [id number] : 1970 F 53 From: Álvaro Rivera MD PCP: AUGUSTINA Funes Status: REG ER Study:Abdomen/Pelvis W IV Cont ONLY Date of E xam: 10/14/24 Exam# [id number] Ordering Dr: Alvino Beltran DO PROCEDURE: ABDOMEN/PELVIS W IV CONT ONLY 10/14/2024 REASON FOR EXAM: ELEVATED BILIRUBIN TECHNIQUE: CT of the abdomen and pelvis with contrast with coronal and sagittal reformattedimages 95 cc Isovue 370 COMPARISON: 05/28/2024 FINDINGS: Dependent basilar atelectasis. Enlarged, markedly fatty appearing liver again seen. The gallbladder is prominent size and may represent prolonged fasting state without evidence of wall thickening or pericholecystic stranding/inflammatory change or gallbladderfossa fluid seen. The adrenal glands, kidneys and spleen appear within limits. Diffusely atrophic appearing pancreas. Findings are consistent with pancreatitis with lobular soft tissue density surrounding majority of the tail of the pancreas measuring 5 x 6 x 5.3 cm axial 45, coronal 65 and sagittal 116maybe related to peripancreatic fat necrosis/phlegmon with developing complex pseudocyst or peripancreatic hemorrhage not entirely excluded. Mild adjacent fat stranding, edema. Small amount of fluid along the upper greater curvature of the stomach left upper quadrant axial 31 and coronal 67. No definite appearing vascular complication identified at this time. Abdominal aorta appears withinlimits without aneurysm. Aortoiliac atherosclerotic calcification noted. No adenopathy identified. No bowel dilation or free air. Normal caliber appendix without secondary signs. The ovaries appear within limits. Status post hysterectomy. The bladder appears within limits. No free fluid. L5-S1 spondylosis/discogenic change again noted. Right larger than left fat containing inguinal hernias again noted. Supraumbilical/periumbilical ventral fat containing hernia again noted. CT/Abdomen/Pelvis W IV Cont ONLY IMPRESSION: Diffusely atrophic appearing pancreas. Findings are consistent with pancreatitiswith lobular soft tissue density surrounding majority of the tail of the pancreas measuring 5 x 6 x 5.3 cm axial 45, coronal 65 and sagittal 116maybe related to peripancreatic fat necrosis/phlegmon with developing complex pseudocyst or peripancreatic hemorrhage not entirely excluded. Mild adjacent fat stranding, edema. Small amount of fluid along the upper greater curvature of the stomach left upper quadrant axial 31 and coronal 67. Enlarged, markedly fatty appearing liver again seen. The gallbladder is prominent size and may represent prolonged fasting state without evidence of wall thickening or pericholecystic stranding/inflammatory change or gallbladderfossa fluid seen. Reading Location: [id number] CC: AUGUSTINA Woodson; Dr. Alvino Diggs-Tye, DO ~ Civil Process Server: Signed [facility]03-22-2025 Radiology Diagnostic study note [facility] Imaging Services [address] [place] [address] Ribs Uni Min 3V w/PA Chest MR#: [id number] Acct: [id number] Name: ORA ADAMS Rep #: [id number] : 1970 F 53 From: Álvaro Rivera MD PCP: AUGUSTINA Funes Status: PRE ER Study:Ribs Uni Min 3V w/PA Chest Date of Exam : 10/14/24 Exam# [id number] Ordering Dr: Alvino Beltran DO PROCEDURE: RIBS UNI MIN 3V W/PA CHEST 10/14/2024 REASON FOR EXAM: PAIN, FALL TECHNIQUE: PA view of the chest and 4 views of the left ribs. COMPARISON: None FINDINGS: Anterolateral left 5th and 6th rib fracture deformities, correlate for age/focaltenderness. Old lateral right 9th rib fracture deformity. The lungs appear clear. No pneumothorax or pleural effusion identified at this time. Thecardiac and mediastinal contours appear within limits. Soft tissue surgical clips noted. RAD/Ribs Uni Min 3V w/PA Chest IMPRESSION: Anterolateral left 5th and 6th rib fracture deformities, correlate for age/focaltenderness. No pneumothorax or pleural effusion identified at this time. Reading Location: [id number] CC: AUGUSTINA Woodson; Dr. Alvino Mercado DO ~ Civil Process Server: Signed [facility]03-05-2025 Telephone encounter Note* Telephone Encounter - Katharine Cope RN - 09/27/2024 12:12 PM EST The patient has been identified by name and date of : Yes Caregiver verified no other encounters exist for this prescription request: Yes Caregiver confirmed with patient/requestor that no other refills are due, in the near future, with this provider at this time: Yes The last office visit in the department: 06/02/2024 Does the patient have a future office visit with this provider/department: Yes 12/04/2024 Requested Prescriptions Pending Prescriptions Disp Refills zolpidem (AMBIEN) 5 mg tablet 30 tablet 2 Sig: Take 1 tablet by mouth at bedtime as needed for up to 90 days. Katharine Cope RN [facility]03-05-2025 Miscellaneous Notes* Telephone Encounter - Katharine Cope RN - 09/27/2024 12:12 PM EST The patient has been identified by name and date of : Yes Caregiver verified no other encounters exist for this prescription request: Yes Caregiver confirmed with patient/requestor that no other refills are due, in the near future, with this provider at this time: Yes The last office visit in the department: 06/02/2024 Does the patient have a future office visit with this provider/department: Yes 12/04/2024 Requested Prescriptions Pending Prescriptions Disp Refills zolpidem (AMBIEN) 5 mg tablet 30 tablet 2 Sig: Take 1 tablet by mouth at bedtime as needed for up to 90 days. Katharine Cope RN documented in this encounterC[facility] Telephone encounter Note * Telephone Encounter - Elizabeth Garcia MD - 09/01/2024 9:55 AM EST This was not turned into RX refill request. Noted patient of Alirio. Last seen May 2024 and has November 2024 appointment scheduled. Last Tramadol RX 06/12. Does not fill routinely. Will okay RX. The following approved medication requests have been transmitted electronically. Requested Prescriptions Signed Prescriptions Disp Refills traMADol (ULTRAM) 50 mg tablet 21 tablet 0 Sig: Take 1 tablet by mouth every 8 hours as needed for pain for up to 7 days. Elizabeth Garcia MD [facility]02-07-2025 Miscellaneous Notes* Telephone Encounter - Elizabeth Garcia MD - 09/01/2024 9:55 AM EST This was not turned into RX refill request. Noted patient of Alirio. Last seen May 2024 and has November 2024 appointment scheduled. Last Tramadol RX 06/12. Does not fill routinely. Will okay RX. The following approved medication requests have been transmitted electronically. Requested Prescriptions Signed Prescriptions Disp Refills traMADol (ULTRAM) 50 mg tablet 21 tablet 0 Sig: Take 1 tablet by mouth every 8 hours as needed for pain for up to 7 days. Elizabeth Garcia MD documented in this encounterC[facility]01-[facility] Telephone encounter Note * Telephone Encounter - Elba Shrestha LPN - 08/21/2024 10:54 AM EST Prescription Refill Information The patient has been identified by name and date of : Yes Caregiver verified no other encounters exist for this prescription request: Yes Caregiver confirmed with patient/requestor that no other refills are due, in the near future, with this provider at this time: Yes The last office visit in the department: 06/02/24 Does the patient have a future office visit with this provider/department: Yes 12/04/24 Requested Prescriptions Pending Prescriptions Disp Refills omeprazole (PRILOSEC) 40 mg capsule 90 capsule 2 Sig: Take 1 capsule by mouth once daily. potassium chloride SR (MICRO-K) 10 mEq CR capsule 180 capsule 2 Sig: Take 2 capsules by mouth once daily. levothyroxine (SYNTHROID) 150 mcg tablet 30 tablet 2 Sig: Take 1 tablet by mouth once daily. Take on empty stomach. For thyroid Elba Shrestha LPN August 21, 2024 10:55 AM [facility]01-27-2025 Miscellaneous Notes* Telephone Encounter - Elba Shrestha LPN - 08/21/2024 10:54 AM EST Prescription Refill Information The patient has been identified by name and date of : Yes Caregiver verified no other encounters exist for this prescription request: Yes Caregiver confirmed with patient/requestor that no other refills are due, in the near future, with this provider at this time: Yes The last office visit in the department: 06/02/24 Does the patient have a future office visit with this provider/department: Yes 12/04/24 Requested Prescriptions Pending Prescriptions Disp Refills omeprazole (PRILOSEC) 40 mg capsule 90 capsule 2 Sig: Take 1 capsule by mouth once daily. potassium chloride SR (MICRO-K) 10 mEq CR capsule 180 capsule 2 Sig: Take 2 capsules by mouth once daily. levothyroxine (SYNTHROID) 150 mcg tablet 30 tablet 2 Sig: Take 1 tablet by mouth once daily. Take on empty stomach. For thyroid Elba Shrestha LPN August 21, 2024 10:55 AM documented in this encounterC[facility]01-01-2025 [facility] Medical Records Department [address] [place] [address] Discharge Summary 07/26/24 0941 MR#: [id number] Acct: [id number] Name: ORA ADAMS Rep #: [id number] : 1970 53 From: Ash Oneil MD PCP: AUGUSTINA Funes Status:ADM IN [id number] Prov[facility] Date of Admission: 07/24/24 Primary Care Physician: AUGUSTINA Funes Reason For Visit: ALCOHOL WITHDRAWAL Diagnosis Discharge Diagnosis (1) Alcohol abuse: Status: Chronic Code(s): F10.10 - Alcohol abuse, uncomplicated (2) Hypokalemia: Status: Acute Code(s): E87.6 - Hypokalemia (3) COVID-19: Status: Acute Code(s): U07.1 - COVID-19 Medications at Discharge Home Medications omeprazole 40 mg capsule,delayed release 40 mg PO DAILY GERD 12/02/20 levothyroxine 150 mcg tablet 150 mcg PO DAILY thyroid 02/20/24 lorazepam 0.5 mg tablet (Ativan) 0.5 mg PO DAILY PRN sleep 05/28/24 ondansetron 4 mg disintegrating tablet 4 mg PO Q6H PRN PRN Nausea #15 tabs 05/28/24 potassium chloride 20 mEq tablet,extended release 20 meq PO BID supplement #10 tabs 05/28/24 zolpidem 5 mg tablet 5 mg PO QHS PRN sleep 05/28/24 Hospital Course Operations None Procedures None Summary of Care Provided Minutes Spent on Discharge: 32 Hospital Course: Per HPI: ORA ADAMS, is a 53 F who presents to the hospital not feeling well. Patient had been sick since Wednesday of last week after being around family for [employer]. Was getting ready to come to the hospital where she was unable to clear the curb and fell backwards hitting her head. She did not lose consciousness. A rapid response team was called and the fact the patient hit her head, c-collar and a backboard was ordered and patient was brought to the emergency room. Her cervical spine and head CT were cleared and negative. Patient is also requesting treatment for withdrawal from alcohol. Patient drinks a small bottle of vodka daily. States that when she tries not drinking she feels poorly. Patient was also positive for COVID-19 which is likely why she has been sick since last week. Even though she now has COVID (which is the first time that she has knowingly had that) she is willing to stay here to get treatment for alcohol withdrawal. Patient was evaluated by myself during the rapid response team Hospital Course: 1. Alcohol abuse with chronically elevated LFTs requesting detox???53-year-old female was a rapid response outside of the hospital where she had slipped and fallen and hit her head. CT of the brain was unremarkable. She did indicate a desire for detox so she was brought in and started on the alcohol withdrawal protocol. She is decided to go home today. She was also found to be incidentally positive for COVID however was not hypoxic Were not treated and she had been symptomatic for about 10 to 14 days at the point of admission. I discussed with her the plan for discharge today she expressed understanding of the risk benefits going home and would like to go home today. I do recommend that she follow-up with her PCP to monitor her liver functions and to proceed with outpatient rehab. As for her COVID nothing to do at this time. 2. Hypothyroidism, GERD, anxiety, depression are all chronic medical conditions which complicate her care. Her home medications were continued where appropriate Physical Exam Narrative General: Alert, Oriented x3, Cooperative, No apparent distress HEENT: Atraumatic, PERRLA, EOMI, Normocephalic Oral: Moist Mucosa Neck: Supple, No JVD Lungs: Clear to auscultation, Normal air movement, No rhonchi, No wheeze, No rales Cardiovascular: Regular rate, Regular Rhythm, Normal S1, Normal S2, No murmurs Abdomen: Soft, Non Tender, Non-Distended, No Hepato-splenomegaly Extremities: No edema, Capillary Refill Less than 3 Seconds Skin: No rashes, No breakdown Musculoskeletal: No Tenderness to Palpation of Joints or Extremities Neurological: No focal neurological deficits, Motor Exam 5/5 strength throughout, Sensory exam intact to light touch and pain Psych/Mental Status: Normal Affect, Appropriate Weight / BMI Weight Weight: 196 lb 10.437 oz Body Mass Index (BMI) 35.9 ABG / Lab / Microbiology Data 07/24/24 15:09 07/25/24 06:24 Microbiology: Microbiology 07/24/24 15:55 Mucosa - Nose SARS-CoV-2, Influenza RSV (PCR) - Final SARS-CoV-2 (COVID 19) D/C Instructions Discharge Diet: No restrictions Call your doctor if you observe: Fever of 101 or Higher, Shortness of breath, Dizziness, Fainting spells, Swelling in the ankles, Chest pain and Increased palpitations (irregular heartbeat) DC O2, CPAP, BIPAP Needs Home O2 Discharge instructions: No Meaningful Use Info Meaningful Use Meaningful Use Diagnoses (Choose all that apply): None applicable Ischemic Stroke Statin Dosing Therapy (more content not included)...[facility] 07-24-2024 Evaluation note* Diagnosis Onset Date Resolution Status Admit Date Fall acute July 24, 2024 7:27pm Hypokalemia acute June 7:27pm Alcohol abuse chronic July 242023 7:27pm COVID-19 resolved July 24, 2024 7:27pm [facility] Work Phone: [phone]) 761-150911-18-2024 Telephone encounter Note* Telephone Encounter - Alirio Woodson APRN.CNP - 06/12/2024 11:54 AM EST [facility] website checked and validated. All prescriptions have been APPROPRIATELY filled. No suspiciousactivity was identified. 06/12/2024 by Alirio Woodson APRN.CNP [facility]11-18-2024 Miscellaneous Notes* Telephone Encounter - Alirio Woodson APRN.CNP - 06/12/2024 11:54 AM EST [facility] website checked and validated. All prescriptions have been APPROPRIATELY filled. No suspiciousactivity was identified. 06/12/2024 by Alirio Woodson APRN.CNP documented in this encounterC[facility]2024 NoteHNO ID: [id number] Author: ALIRIO WOODSON APRN.ELECTRICAL INTEGRATOR Service: ? Author Type: Nurse Practitioner Type: Progress Notes Filed: 06/02/2024 10:09 Note Text: SUBJECTIVE Ora Adams is a 53 year old female here today for a check up on her medical problems. Chief Complaint Patient presents with: Recheck HPI Ora Adams is a 53 year old female. She is an established patient. Here today for follow up on acute pancreatitis. Seen earlier this week and was feeling pretty miserable. States today that able to eat, eating slowly now, no vomiting. Less nausea. Less abdominal pain. Cutting back on pain medication. Having small bowel movements, passing gas. Repeat labs show improvement of lipase back to normal. CBC shows WBC elevation. Blood pressure is elevated some today, darling bp readings better. Advised monitoring close at home/work. Her medications were reviewed today and her list is now up to date. Medications Current Outpatient Medications Medication Sig promethazine (PHENERGAN) 25 mg tablet Take 1 tablet by mouth every 6 hours as needed for nausea/vomiting. oxyCODONE IR (ROXICODONE) 5 mg immediate release tablet Take 1 tablet by mouth every 4 hours as needed for pain for up to 5 days. Patient should start on May 30, 2024. levothyroxine (SYNTHROID) 150 mcg tablet Take 1 tablet by mouth once daily. Take on empty stomach. For thyroid zolpidem (AMBIEN) 5 mg tablet Take 1 tablet by mouth at bedtime as needed for up to 90 days. omeprazole (PRILOSEC) 40 mg capsule Take 1 capsule by mouth once daily. nystatin (MYCOSTATIN) cream Apply to affected area twice daily. cefdinir (OMNICEF) 300 mg capsule Take 1 capsule by mouth two times a day for 10 days. hydroCHLOROthiazide 12.5 mg capsule Take 1 capsule by mouth once daily. (Patient not taking: Reported on 05/29/2024) potassium chloride SR (MICRO-K) 10 mEq CR capsule Take 2 capsules by mouth once daily. (Patient not taking: Reported on 03/08/2024) nabumetone (RELAFEN) 500 mg tablet Take 500 mg by mouth twice daily. (Patient not taking: Reported on 05/29/2024) No current facility-administered medications for this visit. 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 Cardiovascular: Negative. Gastrointestinal: Positive for abdominal pain. Negative for constipation, diarrhea, nausea and vomiting. OBJECTIVE BP 138/88[first darling bp reading[ Pulse 91 Wt 196 lb 13.9 oz (89.3kg) SpO2 96% Physical Exam Vitals and nursing note reviewed. Constitutional: General: She is awake. She is not in acute distress. Appearance: Normal appearance. She is well-developed and well-groomed. She is not ill-appearing, toxic-appearing or diaphoretic. HENT: Head: Normocephalic. Right Ear: External ear normal. Left Ear: External ear normal. Nose: Nose normal. Eyes: General: Vision grossly intact. Conjunctiva/sclera: Conjunctivae normal. Pupils: Pupils are equal, round, and reactive to light. Neck: Vascular: No JVD. Trachea: Trachea normal. Cardiovascular: Rate and Rhythm: Normal rate and regular rhythm. Pulses: Normal pulses. Heart sounds: Normal heart sounds. No murmur heard. Pulmonary: Effort: Pulmonary effort is normal. No accessory muscle usage, prolonged expiration or respiratory distress. Breath sounds: Normal breath sounds. Musculoskeletal: Cervical back: Neck supple. Skin: General: Skin is warm and dry. Capillary Refill: Capillary refill takes less than 2 seconds. Neurological: General: No focal deficit present. Mental Status: She is alert and oriented to person, place, and time. Mental status is at baseline. Psychiatric: Attention and Perception: Attention and perception normal. Mood and Affect: Mood and affect normal. Speech: Speech normal. Behavior: Behavior normal. Behavior is cooperative. Thought Content: Thought content normal. Cognition and Memory: Cognition and memory normal. Judgment: Judgment normal. ASSESSMENT/PLAN: 1. Acute pancreatitis without infection or necrosis, unspecified pancreatitis type - ICD9: 577.0, ICD10: K85.90 (primary diagnosis) Significantly improved, start cefdinir for broad spectrum infection covera (more content not included)...[facility]2024 History of Present illness Narrative* Alirio Woodson APRN.ELECTRICAL INTEGRATOR - 06/02/2024 9:31 AM EST SUBJECTIVE Ora Adams is a 53 year old female here today for a check up on her medical problems. Chief Complaint Patient presents with: Recheck HPI Ora Adams is a 53 year old female. She is an established patient. Here today for follow up on acute pancreatitis. Seen earlier this week and was feeling pretty miserable. States today that able to eat, eating slowly now, no vomiting. Less nausea. Less abdominal pain. Cutting back on pain medication. Having small bowel movements, passing gas. Repeat labs show improvement of lipase back to normal. CBC shows WBC elevation. Blood pressure is elevated some today, darling bp readings better. Advised monitoring close at home/work. Her medications were reviewed today and her list is now up to date. Medications Current Outpatient Medications Medication Sig promethazine (PHENERGAN) 25 mg tablet Take 1 tablet by mouth every 6 hours as needed for nausea/vomiting. oxyCODONE IR (ROXICODONE) 5 mg immediate release tablet Take 1 tablet by mouth every 4 hours as needed for pain for up to 5 days. Patient should start on May 30, 2024. levothyroxine (SYNTHROID) 150 mcg tablet Take 1 tablet by mouth once daily. Take on empty stomach. For thyroid zolpidem (AMBIEN) 5 mg tablet Take 1 tablet by mouth at bedtime as needed for up to 90 days. omeprazole (PRILOSEC) 40 mg capsule Take 1 capsule by mouth once daily. nystatin (MYCOSTATIN) cream Apply to affected area twice daily. cefdinir (OMNICEF) 300 mg capsule Take 1 capsule by mouth two times a day for 10 days. hydroCHLOROthiazide 12.5 mg capsule Take 1 capsule by mouth once daily. (Patient not taking: Reported on 05/29/2024) potassium chloride SR (MICRO-K) 10 mEq CR capsule Take 2 capsules by mouth once daily. (Patient nottaking: Reported on 03/08/2024) nabumetone (RELAFEN) 500 mg tablet Take 500 mg by mouth twice daily. (Patient not taking: Reported on 05/29/2024) No current facility-administered medications for this visit. 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 Cardiovascular: Negative. Gastrointestinal: Positive for abdominal pain. Negative for constipation, diarrhea, nausea and vomiting. OBJECTIVE BP 138/88[first darling bp reading[ Pulse 91 Wt 196 lb 13.9 oz (89.3kg) SpO2 96% Physical Exam Vitals and nursing note reviewed. Constitutional: General: She is awake. She is not in acute distress. Appearance: Normal appearance. She is well-developed and well-groomed. She is not ill-appearing, toxic-appearing or diaphoretic. HENT: Head: Normocephalic. Right Ear: External ear normal. Left Ear: External ear normal. Nose: Nose normal. Eyes: General: Vision grossly intact. Conjunctiva/sclera: Conjunctivae normal. Pupils: Pupils are equal, round, and reactive to light. Neck: Vascular: No JVD. Trachea: Trachea normal. Cardiovascular: Rate and Rhythm: Normal rate and regular rhythm. Pulses: Normal pulses. Heart sounds: Normal heart sounds. No murmur heard. Pulmonary: Effort: Pulmonary effort is normal. No accessory muscle usage, prolonged expiration or respiratory distress. Breath sounds: Normal breath sounds. Musculoskeletal: Cervical back: Neck supple. Skin: General: Skin is warm and dry. Capillary Refill: Capillary refill takes less than 2 seconds. Neurological: General: No focal deficit present. Mental Status: She is alert and oriented to person, place, and time. Mental status is at baseline. Psychiatric: Attention and Perception: Attention and perception normal. Mood and Affect: Mood and affect normal. Speech: Speech normal. Behavior: Behavior normal. Behavior is cooperative. Thought Content: Thought content normal. Cognition and Memory: Cognition and memory normal. Judgment: Judgment normal. ASSESSMENT/PLAN: 1. Acute pancreatitis without infection or necrosis, unspecified pancreatitis type - ICD9: 577.0, ICD10: K85.90 (primary diagnosis) Significantly improved, start cefdinir for broad spectrum infection coverage. - CEFDINIR 300 MG CAPSULE 2. Nausea and vomiting, unspecified vomiting type - ICD9: 787.01, ICD10: R11.2 Resolving. - CEFDINIR 300 MG CAPSULE 3. Primary hypertension - ICD9: 401.9, ICD10: I10 - Factors affecting control: diet adherence - Recommend home blood pressure monitoring, to bring results to next visit - Encouraged sodium restriction, DASH or Mediterranean diet - Recommend regular aerobic exercise - Darling bp reading better than initial bp, discussed monitoring close outside of the office and restart HCTZ if persistently above 140/90. Follow up in 3 months if running higher, okay for 6 months if bp controlled outside of the office. Portions of this note have been entered by ancillary staff. I have reviewed and when necessary edited, so that they are an adequate record of my encounter with this patient Please note that parts of this document were created using voice recognition software and therefore may contain grammatical errors. Patient verbalizes understanding of instructions from today's visit and in agreement with treatmentplan. Questions answered. Agrees to call the office if questions, concerns of issues with acute symptoms not improving or if they worsen. See diagnoses and orders for additional plan(s). Allergies and medications were reviewed, list was updated, and refills given if needed. Past medical, surgical, social, and family history reviewed and updated as appropriate. Encouraged proper diet & exercise as well as compliance with taking medications. Age- appropriate health preventative measures were discussed. Return if symptoms worsen or fail to improve. Alirio Woodson APRN-GABE documented in this encounterC[facility] NoteHNO ID: [id number] Author: ALIRIO WOODSON APRN.CNP Service: ? Author Type: Nurse Practitioner Type: Progress Notes Filed: 05/29/2024 15:08 Note Text: SUBJECTIVE Ora Adams is a 53 year old female here today for an Er follow up. Chief Complaint Patient presents with: ER F/U: [facility] 05/28/24 for pancreatitis HPI Ora Adams is a 53 year old female. She is an established patient who presents today for an ER follow up. Seen in ER at [facility] yesterday 05/28 and diagnosed with acute pancreatitis. Ct showed findings consistent with that diagnosis. Had started with some nausea and not feeling great a few days prior. Not feeling great today. Having some abdominal pain today. Not much nausea or vomiting. Trying to stick with clear liquids for bowel rest. No diarrhea issues. Had a few glasses of wine so not sure if that triggered this but this was not in excess and she typically has a few glasses of wine per week. Pain medication is helping to control her pain but pain is still very severe. In ER lipase was 601. First episode ever that she knows of. Her medications were reviewed today and her list is now up to date. Medications Current Outpatient Medications Medication Sig levothyroxine (SYNTHROID) 150 mcg tablet Take 1 tablet by mouth once daily. Take on empty stomach. For thyroid zolpidem (AMBIEN) 5 mg tablet Take 1 tablet by mouth at bedtime as needed for up to 90 days. omeprazole (PRILOSEC) 40 mg capsule Take 1 capsule by mouth once daily. nystatin (MYCOSTATIN) cream Apply to affected area twice daily. promethazine (PHENERGAN) 25 mg tablet Take 1 tablet by mouth every 6 hours as needed for nausea/vomiting. [START ON 05/30/2024] oxyCODONE IR (ROXICODONE) 5 mg immediate release tablet Take 1 tablet by mouth every 4 hours as needed for pain for up to 5 days. Patient should start on May 30, 2024. phentermine-topiramate ER (QSYMIA) 15-92 mg 24 Hr Capsule Take 1 capsule by mouth once daily for 90 days. (Patient not taking: Reported on 05/29/2024) hydroCHLOROthiazide 12.5 mg capsule Take 1 capsule by mouth once daily. (Patient not taking: Reported on 05/29/2024) potassium chloride SR (MICRO-K) 10 mEq CR capsule Take 2 capsules by mouth once daily. (Patient not taking: Reported on 03/08/2024) nabumetone (RELAFEN) 500 mg tablet Take 500 mg by mouth twice daily. (Patient not taking: Reported on 05/29/2024) No current facility-administered medications for this visit. 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 Cardiovascular: Negative. Gastrointestinal: Positive for abdominal pain, nausea and vomiting. Negative for anal bleeding, blood in stool, constipation, diarrhea and rectal pain. OBJECTIVE BP 136/98 Pulse 115 Wt 198 lb 3.1 oz (89.9kg) SpO2 96% Physical Exam Vitals and nursing note reviewed. Constitutional: General: She is awake. She is not in acute distress. Appearance: Normal appearance. She is well-developed and well-groomed. She is not ill-appearing, toxic-appearing or diaphoretic. HENT: Head: Normocephalic. Right Ear: External ear normal. Left Ear: External ear normal. Nose: Nose normal. Eyes: General: Vision grossly intact. Conjunctiva/sclera: Conjunctivae normal. Pupils: Pupils are equal, round, and reactive to light. Neck: Vascular: No JVD. Trachea: Trachea normal. Cardiovascular: Rate and Rhythm: Normal rate and regular rhythm. Pulses: Normal pulses. Heart sounds: Normal heart sounds. No murmur heard. Pulmonary: Effort: Pulmonary effort is normal. No accessory muscle usage, prolonged expiration or respiratory distress. Breath sounds: Normal breath sounds. Musculoskeletal: Cervical back: Neck supple. Skin: General: Skin is warm and dry. Capillary Refill: Capillary refill takes less than 2 seconds. Neurological: General: No focal deficit present. Mental Status: She is alert and oriented to person, place, and time. Mental status is at baseline. Psychiatric: Attention and Perception: Attention and perception normal. Mood and Affect: Mood and affect normal. Speech: Speech normal. Behavior: Behavior normal. Behavior is cooperative. Thought Content: Though (more content not included)...[facility] 05-29-2024 History of Present illness Narrative* Alirio Woodson APRN.[facility] - 05/29/2024 1:54 PM EST SUBJECTIVE Ora Adams is a 53 year old female here today for an Er follow up. Chief Complaint Patient presents with: ER F/U: [facility] 05/28/24 for pancreatitis HPI Ora Adams is a 53 year old female. She is an established patient who presents today for an ER follow up. Seen in ER at [facility] yesterday 05/28 and diagnosed with acute pancreatitis. Ct showed findings consistent with that diagnosis. Had started with some nausea and not feeling great a few days prior. Not feeling great today. Having some abdominal pain today. Not much nausea or vomiting. Trying to stick with clear liquids for bowel rest. No diarrhea issues. Had a few glasses of wine so not sureif that triggered this but this was not in excess and she typically has a few glasses of wine per week. Pain medication is helping to control her pain but pain is still very severe. In ER lipase was 6 01. First episode ever that she knows of. Her medications were reviewed today and her list is now up to date. Medications Current Outpatient Medications Medication Sig levothyroxine (SYNTHROID) 150 mcg tablet Take 1 tablet by mouth once daily. Take on empty stomach. For thyroid zolpidem (AMBIEN) 5 mg tablet Take 1 tablet by mouth at bedtime as needed for up to 90 days. omeprazole (PRILOSEC) 40 mg capsule Take 1 capsule by mouth once daily. nystatin (MYCOSTATIN) cream Apply to affected area twice daily. promethazine (PHENERGAN) 25 mg tablet Take 1 tablet by mouth every 6 hours as needed for nausea/vomiting. [START ON 05/30/2024] oxyCODONE IR (ROXICODONE) 5 mg immediate release tablet Take 1 tablet by mouthevery 4 hours as needed for pain for up to 5 days. Patient should start on May 30, 2024. phentermine-topiramate ER (QSYMIA) 15-92 mg 24 Hr Capsule Take 1 capsule by mouth once daily for 90days. (Patient not taking: Reported on 05/29/2024) hydroCHLOROthiazide 12.5 mg capsule Take 1 capsule by mouth once daily. (Patient not taking: Reported on 05/29/2024) potassium chloride SR (MICRO-K) 10 mEq CR capsule Take 2 capsules by mouth once daily. (Patient nottaking: Reported on 03/08/2024) nabumetone (RELAFEN) 500 mg tablet Take 500 mg by mouth twice daily. (Patient not taking: Reported on 05/29/2024) No current facility-administered medications for this visit. 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 Cardiovascular: Negative. Gastrointestinal: Positive for abdominal pain, nausea and vomiting. Negative for anal bleeding, blood in stool, constipation, diarrhea and rectal pain. OBJECTIVE BP 136/98 Pulse 115 Wt 198 lb 3.1 oz (89.9kg) SpO2 96% Physical Exam Vitals and nursing note reviewed. Constitutional: General: She is awake. She is not in acute distress. Appearance: Normal appearance. She is well-developed and well-groomed. She is not ill-appearing, toxic-appearing or diaphoretic. HENT: Head: Normocephalic. Right Ear: External ear normal. Left Ear: External ear normal. Nose: Nose normal. Eyes: General: Vision grossly intact. Conjunctiva/sclera: Conjunctivae normal. Pupils: Pupils are equal, round, and reactive to light. Neck: Vascular: No JVD. Trachea: Trachea normal. Cardiovascular: Rate and Rhythm: Normal rate and regular rhythm. Pulses: Normal pulses. Heart sounds: Normal heart sounds. No murmur heard. Pulmonary: Effort: Pulmonary effort is normal. No accessory muscle usage, prolonged expiration or respiratory distress. Breath sounds: Normal breath sounds. Musculoskeletal: Cervical back: Neck supple. Skin: General: Skin is warm and dry. Capillary Refill: Capillary refill takes less than 2 seconds. Neurological: General: No focal deficit present. Mental Status: She is alert and oriented to person, place, and time. Mental status is at baseline. Psychiatric: Attention and Perception: Attention and perception normal. Mood and Affect: Mood and affect normal. Speech: Speech normal. Behavior: Behavior normal. Behavior is cooperative. Thought Content: Thought content normal. Cognition and Memory: Cognition and memory normal. Judgment: Judgment normal. ASSESSMENT/PLAN: 1. Acute pancreatitis without infection or necrosis, unspecified pancreatitis type - ICD9: 577.0, ICD10: K85.90 (primary diagnosis) Change zofran to phenergan, resend oxycodone for short term use. Update labs once able to get more fluids in. Discussed if pain more severe or vomiting and not able to keep clear liquids down then needs to go back to ER. - PROMETHAZINE 25 MG TABLET - COMPLETE BLOOD COUNT AND DIFFERENTIAL - COMPREHENSIVE METABOLIC PANEL - LIPASE - AMYLASE - OXYCODONE 5 MG TABLET 2. Nausea and vomiting, unspecified vomiting type - ICD9: 787.01, ICD10: R11.2 - PROMETHAZINE 25 MG TABLET - COMPLETE BLOOD COUNT AND DIFFERENTIAL - COMPREHENSIVE METABOLIC PANEL - LIPASE - [facility]YLASE [facility] checked and validated. All prescriptions have been APPROPRIATELY filled. No suspiciousactivity was identified. 05/29/2024 by Alirio Woodson APRN.CNP Portions of this note have been entered by ancillary staff. I have reviewed and when necessary edited, so that they are an adequate record of my encounter with this patient Please note that parts of this document were created using voice recognition software and therefore may contain grammatical errors. Patient verbalizes understanding of instructions from today's visit and in agreement with treatmentplan. Questions answered. Agrees to call the office if questions, concerns of issues with acute symptoms not improving or if they worsen. See diagnoses and orders for additional plan(s). Allergies and medications were reviewed, list was updated, and refills given if needed. Past medical, surgical, social, and family history reviewed and updated as appropriate. Encouraged proper diet & exercise as well as compliance with taking medications. Age- appropriate health preventative measures were discussed. Return if symptoms worsen or fail to improve, for Keep next scheduled appointment.. Alirio Woodson APRN-GABE documented in this encounterC[facility]09-[facility] Telephone encounter Note * Telephone Encounter - Erika Angeles LPN - 04/19/2024 10:13 AM EDT Electronic PA completed for qsymia cap ER. This was denied with [employer]. Looks like the do not cover any weight loss medicines. Pt probably knows already but the PA comes automatically when medicine is filed. [facility]09-25-2024 Miscellaneous Notes* Telephone Encounter - Erika Angeles LPN - 04/19/2024 10:13 AM EDT Electronic PA completed for qsymia cap ER. This was denied with [employer]. Looks like the do not cover any weight loss medicines. Pt probably knows already but the PA comes automatically when medicine is filed. documented in this encounterCleveland Clinic [facility]09-24-2024 Note* Addendum Note - Alirio Woodson APRN.CNP - 04/18/2024 3:13 PM EDTAddended by: ALIRIO WOODSON on: 04/18/2024 03:13 PM Modules accepted: Orders [facility]09-24-2024 Miscellaneous Notes* Addendum Note - Alirio Woodson APRN.CNP - 04/18/2024 3:13 PM EDTAddended by: ALIRIO WOODSON on: 04/18/2024 03:13 PM Modules accepted: Orders documented in this encounterC[facility]09-24-2024 Telephone encounter Note * Telephone Encounter - Rossy Andrade LPN - 04/18/2024 3:12 PM EDT Patient has been identified by name and date of : yes Patient phones for refill(s): Requested Prescriptions Pending Prescriptions Disp Refills levothyroxine (SYNTHROID) 150 mcg tablet 30 tablet 2 Sig: Take 1 tablet by mouth once daily. Take on empty stomach. For thyroid Date of last office visit in primary care: 03/08/2024, advised to f/u in 3 months, left msg on phoneto call & schedule. Sent MyChart msg also. Date of next office visit in primary care: Visit date not found Please advise. Thank you. Rossy Andrade LPN. [facility]09-24-2024 Miscellaneous Notes* Telephone Encounter - Rossy Andrade LPN - 04/18/2024 3:12 PM EDT Patient has been identified by name and date of : yes Patient phones for refill(s): Requested Prescriptions Pending Prescriptions Disp Refills levothyroxine (SYNTHROID) 150 mcg tablet 30 tablet 2 Sig: Take 1 tablet by mouth once daily. Take on empty stomach. For thyroid Date of last office visit in primary care: 03/08/2024, advised to f/u in 3 months, left msg on phoneto call & schedule. Sent MyChart msg also. Date of next office visit in primary care: Visit date not found Please advise. Thank you. Rossy Andrade LPN. documented in this encounterC[facility]09-06-2024 Telephone encounter Note * Telephone Encounter - Elba Shrestha LPN - 03/31/2024 3:53 PM EDT Prescription Refill Information The patient has been identified by name and date of : Yes Caregiver verified no other encounters exist for this prescription request: Yes Caregiver confirmed with patient/requestor that no other refills are due, in the near future, with this provider at this time: Yes The last office visit in the department: 03/08/24 Does the patient have a future office visit with this provider/department: No Requested Prescriptions Pending Prescriptions Disp Refills zolpidem (AMBIEN) 5 mg tablet 30 tablet 2 Sig: Take 1 tablet by mouth at bedtime as needed for up to 90 days. Elba Shrestha LPN March 31, 2024 3:54 PM [facility]09-06-2024 Miscellaneous Notes* Telephone Encounter - Elba Shrestha LPN - 03/31/2024 3:53 PM EDT Prescription Refill Information The patient has been identified by name and date of : Yes Caregiver verified no other encounters exist for this prescription request: Yes Caregiver confirmed with patient/requestor that no other refills are due, in the near future, with this provider at this time: Yes The last office visit in the department: 03/08/24 Does the patient have a future office visit with this provider/department: No Requested Prescriptions Pending Prescriptions Disp Refills zolpidem (AMBIEN) 5 mg tablet 30 tablet 2 Sig: Take 1 tablet by mouth at bedtime as needed for up to 90 days. Elba Shrestha LPN March 31, 2024 3:54 PM documented in this encounterCleveland [facility]09-04-2024 NotePatient Outreach (INTMMN) ORA ADAMS ([id number]) 1970 F Date Time Provider Department 03/29/24 ALIRIO WOODSON [place] During your visit today, we recorded the following information about you: Allergies As of Date: 03/29/2024 Noted Allergy Reaction BANANA 12/02/2022 4 - Hives PENICILLINS 12/02/2022 4 - Hives SULFA (SULFONAMIDE ANTIBIOTICS) 12/02/2022 4 - Hives VANCOMYCIN 12/02/2022 14 - Other: See Comments Comments: Red man's syndrome ZYVOX (LINEZOLID) 12/02/2022 7 - Swelling 10 - Anaphylaxis Date Reviewed: 03/08/2024 Reviewed by: Alirio Woodson APRN.ELECTRICAL INTEGRATOR - Fully Assessed Visit Diagnosis:Encounter for screening mammogram for breast cancer [Z12.31] Order(s):[facility] SCREENING W [facility]ENDA [[id number]] Order #: [id number] FUTURE Prescriptions as of 04/03/2024 - zolpidem (AMBIEN) 5 mg tablet Take 1 tablet by mouth at bedtime as needed for up to 90 days. - hydroCHLOROthiazide 12.5 mg capsule Take 1 capsule by mouth once daily. - levothyroxine (SYNTHROID) 150 mcg tablet Take 1 tablet by mouth once daily. Take on empty stomach. For thyroid - potassium chloride SR (MICRO-K) 10 mEq CR capsule Take 2 capsules by mouth once daily. - omeprazole (PRILOSEC) 40 mg capsule Take 1 capsule by mouth once daily. - nystatin (MYCOSTATIN) cream Apply to affected area twice daily. - nabumetone (RELAFEN) 500 mg tablet Take 500 mg by mouth twice daily. 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 Author Type: Nurse Practitioner Type: Progress Notes Filed: 03/08/2024 08:05 Note Text: SUBJECTIVE Ora Adams is a 53 year old female here today for a check up on her medical problems. Chief Complaint Patient presents with: Hospital Follow Up: [facility] 02/19 for low sodium, elevated liver enzymes, dehydration HPI Ora Adams is a 53 year old female. She is an established patient. Here today for follow up from being seen at [facility] ER on 02/19. Admitted and discharged on 02/22. Sodium was 110 on 02/19, hypok and hypomag, alcohol use. Sodium was 128 on discharge. Stopped her HCTZ and lisinopril. Feeling okay. Doing an electrolyte replacement daily. Starting to notice more swelling in ankles and hands. Continues to have hip pain. Working with ortho. Her medications were reviewed today and her list is now up to date. Medications Current Outpatient Medications Medication Sig levothyroxine (SYNTHROID) 150 mcg tablet Take 1 tablet by mouth once daily. Take on empty stomach. For thyroid zolpidem (AMBIEN) 5 mg tablet Take 1 tablet by mouth at bedtime as needed for up to 90 days. omeprazole (PRILOSEC) 40 mg capsule Take 1 capsule by mouth once daily. nystatin (MYCOSTATIN) cream Apply to affected area twice daily. nabumetone (RELAFEN) 500 mg tablet Take 500 mg by mouth twice daily. hydroCHLOROthiazide 12.5 mg capsule Take 1 capsule by mouth once daily. traMADol (ULTRAM) 50 mg tablet Take 1 tablet by mouth every 8 hours as needed for pain for up to 7 days. potassium chloride SR (MICRO-K) 10 mEq CR capsule Take 2 capsules by mouth once daily. (Patient not taking: Reported on 03/08/2024) No current facility-administered medications for this visit. 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 Respiratory: Negative. Cardiovascular: Negative. OBJECTIVE BP 132/90 Pulse 75 Temp 98.4 Wt 185 lb 10 oz (84.2kg) SpO2 99% Physical Exam Vitals and nursing note reviewed. Constitutional: General: She is awake. She is not in acute distress. Appearance: Normal appearance. She is well-developed and well-groomed. She is not ill-appearing, toxic-appearing or diaphoretic. HENT: Head: Normocephalic. Right Ear: External ear normal. Left Ear: External ear normal. Nose: Nose normal. Eyes: General: Vision grossly intact. Conjunctiva/sclera: Conjunctivae normal. Pupils: Pupils are equal, round, and reactive to light. Neck: Vascular: No JVD. Trachea: Trachea normal. Cardiovascular: Rate and Rhythm: Normal rate and regular rhythm. Pulses: Normal pulses. Heart sounds: Normal heart sounds. No murmur heard. Pulmonary: Effort: Pulmonary effort is normal. No accessory muscle usage, prolonged expiration or respiratory distress. Breath sounds: Normal breath sounds. Musculoskeletal: Cervical back: Neck supple. Skin: General: Skin is warm and dry. Capillary Refill: Capillary refill takes less than 2 seconds. Neurological: General: No focal deficit present. Mental Status: She is alert and oriented to person, place, and time. Mental status is at baseline. Psychiatric: Attention and Perception: Attention and perception normal. Mood and Affect: Mood and affect normal. Speech: Speech normal. Behavior: Behavior normal. Behavior is cooperative. Thought Content: Thought content normal. Cognition and Memory: Cognition and memory normal. Judgment: Judgment normal. ASSESSMENT/PLAN: 1. Hyponatremia - ICD9: 276.1, ICD10: E87.1 (primary diagnosis) Repeat sodium levels today, continue with the daily electrolyte replacement. Limit alcohol use. Restart HCTZ at a lower dose. 2. Hypokalemia - ICD9: 276.8, ICD10: E87.6 See #1 3. Hypomagnesemia - ICD9: 275.2, ICD10: E83.42 See #1 4. Primary hypertension - ICD9: 401.9, ICD10: I10 - Worsening control - Restart low dose of hydrochlorothiazide - Recommend home blood pressure monitoring, to bring results to next visit - Encouraged sodium restriction, DASH or Mediterranean diet - Recommend regular aerobic exercise - HYDROCHLOROTHIAZIDE 12.5 MG CAPSULE 5. 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's thyroiditi (more content not included)... [facility]08-14-2024 History of Present illness Narrative* Alirio Woodson APRN.ELECTRICAL INTEGRATOR - 03/08/2024 7:18 AM EDT SUBJECTIVE Ora Adams is a 53 year old female here today for a check up on her medical problems. Chief Complaint Patient presents with: Hospital Follow Up: [facility] 02/19 for low sodium, elevated liver enzymes, dehydration HPI Ora Adams is a 53 year old female. She is an established patient. Here today for follow up from being seen at [facility] ER on 02/19. Admitted and discharged on 02/22. Sodium was 110 on 02/19, hypok and hypomag, alcohol use. Sodium was 128 on discharge. Stopped her HCTZ and lisinopril. Feeling okay. Doing an electrolyte replacement daily. Starting to notice more swelling in ankles and hands. Continues to have hip pain. Working with ortho. Her medications were reviewed today and her list is now up to date. Medications Current Outpatient Medications Medication Sig levothyroxine (SYNTHROID) 150 mcg tablet Take 1 tablet by mouth once daily. Take on empty stomach. For thyroid zolpidem (AMBIEN) 5 mg tablet Take 1 tablet by mouth at bedtime as needed for up to 90 days. omeprazole (PRILOSEC) 40 mg capsule Take 1 capsule by mouth once daily. nystatin (MYCOSTATIN) cream Apply to affected area twice daily. nabumetone (RELAFEN) 500 mg tablet Take 500 mg by mouth twice daily. hydroCHLOROthiazide 12.5 mg capsule Take 1 capsule by mouth once daily. traMADol (ULTRAM) 50 mg tablet Take 1 tablet by mouth every 8 hours as needed for pain for up to 7 days. potassium chloride SR (MICRO-K) 10 mEq CR capsule Take 2 capsules by mouth once daily. (Patient nottaking: Reported on 03/08/2024) No current facility-administered medications for this visit. 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 Respiratory: Negative. Cardiovascular: Negative. OBJECTIVE BP 132/90 Pulse 75 Temp 98.4 Wt 185 lb 10 oz (84.2kg) SpO2 99% Physical Exam Vitals and nursing note reviewed. Constitutional: General: She is awake. She is not in acute distress. Appearance: Normal appearance. She is well-developed and well-groomed. She is not ill-appearing, toxic-appearing or diaphoretic. HENT: Head: Normocephalic. Right Ear: External ear normal. Left Ear: External ear normal. Nose: Nose normal. Eyes: General: Vision grossly intact. Conjunctiva/sclera: Conjunctivae normal. Pupils: Pupils are equal, round, and reactive to light. Neck: Vascular: No JVD. Trachea: Trachea normal. Cardiovascular: Rate and Rhythm: Normal rate and regular rhythm. Pulses: Normal pulses. Heart sounds: Normal heart sounds. No murmur heard. Pulmonary: Effort: Pulmonary effort is normal. No accessory muscle usage, prolonged expiration or respiratory distress. Breath sounds: Normal breath sounds. Musculoskeletal: Cervical back: Neck supple. Skin: General: Skin is warm and dry. Capillary Refill: Capillary refill takes less than 2 seconds. Neurological: General: No focal deficit present. Mental Status: She is alert and oriented to person, place, and time. Mental status is at baseline. Psychiatric: Attention and Perception: Attention and perception normal. Mood and Affect: Mood and affect normal. Speech: Speech normal. Behavior: Behavior normal. Behavior is cooperative. Thought Content: Thought content normal. Cognition and Memory: Cognition and memory normal. Judgment: Judgment normal. ASSESSMENT/PLAN: 1. Hyponatremia - ICD9: 276.1, ICD10: E87.1 (primary diagnosis) Repeat sodium levels today, continue with the daily electrolyte replacement. Limit alcohol use. Restart HCTZ at a lower dose. 2. Hypokalemia - ICD9: 276.8, ICD10: E87.6 See #1 3. Hypomagnesemia - ICD9: 275.2, ICD10: E83.42 See #1 4. Primary hypertension - ICD9: 401.9, ICD10: I10 - Worsening control - Restart low dose of hydrochlorothiazide - Recommend home blood pressure monitoring, to bring results to next visit - Encouraged sodium restriction, DASH or Mediterranean diet - Recommend regular aerobic exercise - HYDROCHLOROTHIAZIDE 12.5 MG CAPSULE 5. 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 6. Closed fracture of right ankle with delayed healing, subsequent encounter - ICD9: V54.19, ICD10:S82.891G Tramadol sparingly is helpful. - TRAMADOL 50 MG TABLET 7. Encounter for therapeutic drug monitoring - ICD9: V58.83, ICD10: Z51.81 - COMPLETE BLOOD COUNT AND DIFFERENTIAL - COMPREHENSIVE METABOLIC PANEL - MAGNESIUM Portions of this note have been entered by ancillary staff. I have reviewed and when necessary edited, so that they are an adequate record of my encounter with this patient Please note that parts of this document were created using voice recognition software and therefore may contain grammatical errors. Patient verbalizes understanding of instructions from today's visit and in agreement with treatmentplan. Questions answered. Agrees to call the office if questions, concerns of issues with acute symptoms not improving or if they worsen. See diagnoses and orders for additional plan(s). Allergies and medications were reviewed, list was updated, and refills given if needed. Past medical, surgical, social, and family history reviewed and updated as appropriate. Encouraged proper diet & exercise as well as compliance with taking medications. Age- appropriate health preventative measures were discussed. Return in about 3 months (around 06/08/2024) for Follow up on chronic conditions and medications.. Alirio Woodson APRN-GABE documented [facility] encounterC[facility] Telephone encounter Note * Telephone Encounter - Krista Gardiner RN - 03/07/2024 8:21 AM EDT The patient has been identified by name and date of : Yes Caregiver verified no other encounters exist for this prescription request: Yes Caregiver confirmed with patient/requestor that no other refills are due, in the near future, with this provider at this time: Yes The last office visit in the department: 12/07/2023 Does the patient have a future office visit with this provider/department: Yes 03/08/2024 Requested Prescriptions Pending Prescriptions Disp Refills levothyroxine (SYNTHROID) 150 mcg tablet 30 tablet 2 Sig: Take 1 tablet by mouth once daily. Take on empty stomach. For thyroid Krista Gardiner RN March 07, 2024 8:21 AM [facility]08-13-2024 Miscellaneous Notes* Telephone Encounter - Krista Gardiner RN - 03/07/2024 8:21 AM EDT The patient has been identified by name and date of : Yes Caregiver verified no other encounters exist for this prescription request: Yes Caregiver confirmed with patient/requestor that no other refills are due, in the near future, with this provider at this time: Yes The last office visit in the department: 12/07/2023 Does the patient have a future office visit with this provider/department: Yes 03/08/2024 Requested Prescriptions Pending Prescriptions Disp Refills levothyroxine (SYNTHROID) 150 mcg tablet 30 tablet 2 Sig: Take 1 tablet by mouth once daily. Take on empty stomach. For thyroid Krista Gardiner RN March 07, 2024 8:21 AM documented in this encounterC[facility]07-31-2024 [facility] Medical Records Department [address] [place] [address] Discharge Summary 02/23/24 1029 MR#: [id number] Acct: [id number] Name: ANGIEORA Escobedo Rep #: [id number] : 1970 53 From: Ash Oneil MD PCP: AUGUSTINA Funes Status:ADM IN Location: [place] [address] Providers Date of Admission: 02/20/24 Primary Care Physician: AUGUSTINA Funes Consultations 02/20/24 03:31 Consult: Nephrology Routine Consulting Provider: Chun Khan Reason for Consult: severe hyponatremia EMERGENT Consult: No MD Notified: Yes Date Notified: 02/20/24 Time Notified: 06:49 Method of Notification: Answering Service Reason For Visit: SEVERE HYPONATREMIA Diagnosis Discharge Diagnosis (1) Acute hyponatremia: Status: Acute Code(s): E87.1 - Hypo-osmolality and hyponatremia Medications at Discharge Home Medications omeprazole 40 mg capsule,delayed release 40 mg PO DAILY GERD 12/02/20 trazodone 50 mg tablet 25 - 50 mg PO QHS PRN Sleep 12/02/20 levothyroxine 150 mcg tablet 150 mcg PO DAILY thyroid 02/20/24 Hospital Course Operations None Procedures None Summary of Care Provided Minutes Spent on Discharge: 37 Hospital Course: Per HPI: ORA ADAMS is a 53 F who presented to [facility] ED on 02/20/2024 with 1 to 2-day history of nausea/vomiting and poor p.o. intake. On arrival to the ED, patient was found to have a sodium level of 110. Per ED physician, patient was mentating appropriately and denied any symptoms of mental fogginess or confusion. Chloride level notably was very low at 70. Given the very low sodium, hospitalist was contacted for admission. I saw patient at the bedside in the ED. She was sitting up comfortably in bed, conversing normally, in no acute distress. She appeared mildly fatigued and had dry mucous membranes but otherwise appeared comfortable. She denied any acute pain or discomfort. Denied any other acute concerns at this time. She notably did receive doses of IV Ativan 1 mg, IV Zofran and 1 L of normal saline before I saw her. When she arrived to the ED, she was hypertensive to the 150s over 90s and borderline tachycardic with heart rate in the 90s, otherwise hemodynamically stable. Labs notable for sodium 110, potassium 3.1, chloride 70, bicarb 24, BUN 7, creatinine 0.67, magnesium 1.6, total bilirubin 2.6, direct bili 0.8, AST 123, ALT 75, alk phos 79, TSH 8.07. No imaging was done. Patient was hospitalized here about 3 years ago for hyponatremia and presented at that time with similar symptoms. However, her sodium level at worst and was only 125. Hyponatremia then with suspected multifactorial from home hydrochlorothiazide, poor p.o. intake, GI losses and possibly some degree of beer potomania. Patient states that she is still on hydrochlorothiazide at this time, though she did self discontinue this a few days ago. Her only other home medications right now are Synthroid and lisinopril. She has not been able to keep these 2 medications down the past few days but otherwise reports compliance. Patient does have history of alcohol abuse. States that she typically drinks 2 glasses of vodka every evening. She notably reported the same amount of alcohol intake during the 2020 admission. States that she has been trying to cut back on her alcohol use over the past few weeks. Since she has developed significant nausea with vomiting in the past few days, she has not had any alcohol intake. She has never been hospitalized for alcohol withdrawal but states she will sometimes have symptoms of withdrawal such as shakiness and heart racing. Denies history of withdrawal seizures. Alcohol level was 6 in ED today. Hospital Course: 1. Acute alcohol withdrawal with severe hypovolemic hyponatremia as well as hypokalemia, hypophosphatemia and hypomagnesemia/elevated LFTs ??? Continue with the alcohol withdrawal protocol ??? Appreciate nephrology's assistance with sodium correction ??? Will monitor and replace electrolytes as necessary ??? LFTs are elevated secondary to alcohol abuse, follow-up as an outpatient ???Her sodium today is corrected to 128, and discussed with nephrology this is most likely attributable to her alcohol abuse. She did refuse any information from social work about outpatient drug and alcohol rehab. Will discontinue her lisinopril and hydrochlorothiazide combination blood pressure medication as this can cause hyponatremia. She does need to follow-up with her PCP as an outpatient to make sure that her blood pressures are stable, if necessary would add her onto Norvasc and/or beta-mandi. I discussed with her the plan for discharge today she expressed understanding of the risk benefits going home and would like to go home today. 2. Essential HTN ??? Hold HCTZ given the hyponatremia ??? Hold lisinopril ??? Will monitor make (more content not included)...[facility] 02-08-2024 Telephone encounter Note* Telephone Encounter - Alirio Woodson APRN.CNP - 02/08/2024 2:41 PM EDT PDMP website checked and validated. All prescriptions have been APPROPRIATELY filled. No suspiciousactivity was identified. 02/08/2024 by Alirio Woodson APRN.CNP [facility]07-16-2024 Miscellaneous Notes* Telephone Encounter - Alirio Woodson APRN.CNP - 02/08/2024 2:41 PM EDT PDMP website checked and validated. All prescriptions have been APPROPRIATELY filled. No suspiciousactivity was identified. 02/08/2024 by Alirio Woodson APRN.CNP * Telephone Encounter - Yuki Esparza LPN - 02/08/2024 2:29 PM EDT The patient has been identified by name and date of : Yes Pharmacy Caregiver verified no other encounters exist for this prescription request: Yes Caregiver confirmed with patient/requestor that no other refills are due, in the near future, with this provider at this time: Yes The last office visit in the department: 12/07/2023 Does the patient have a future office visit with this provider/department: Yes 02/22/2024 Requested Prescriptions Pending Prescriptions Disp Refills zolpidem (AMBIEN) 5 mg tablet 30 tablet 1 Sig: Take 1 tablet by mouth at bedtime as needed for up to 60 days. Yuki Esparza LPN February 08, 2024 2:29 PM documented in this encounterC[facility]07-16-20[facility] Telephone encounter Note * Telephone Encounter - Yuki Esparza LPN - 02/08/2024 2:29 PM EDT The patient has been identified by name and date of : Yes Pharmacy Caregiver verified no other encounters exist for this prescription request: Yes Caregiver confirmed with patient/requestor that no other refills are due, in the near future, with this provider at this time: Yes The last office visit in the department: 12/07/2023 Does the patient have a future office visit with this provider/department: Yes 02/22/2024 Requested Prescriptions Pending Prescriptions Disp Refills zolpidem (AMBIEN) 5 mg tablet 30 tablet 1 Sig: Take 1 tablet by mouth at bedtime as needed for up to 60 days. Yuki Esparza LPN February 08, 2024 2:29 PM [facility]05-14-2024 Telephone encounter Note* Telephone Encounter - Elba Shrestha LPN - 12/07/2023 10:43 AM EDT Patient has been identified by name and date of : Yes, Patient phones for refill(s): Requested Prescriptions Pending Prescriptions Disp Refills levothyroxine (SYNTHROID) 150 mcg tablet 30 tablet 2 Sig: Take 1 tablet by mouth once daily. Take on empty stomach. For thyroid Date of last office visit in primary care: 12/07/2023 Date of next office visit in primary care: 02/22/2024 Please advise. Thank you. Elba Shrestha LPN. [facility]05-14-2024 Miscellaneous Notes* Telephone Encounter - Elba Shrestha LPN - 12/07/2023 10:43 AM EDT Patient has been identified by name and date of : Yes, Patient phones for refill(s): Requested Prescriptions Pending Prescriptions Disp Refills levothyroxine (SYNTHROID) 150 mcg tablet 30 tablet 2 Sig: Take 1 tablet by mouth once daily. Take on empty stomach. For thyroid Date of last office visit in primary care: 12/07/2023 Date of next office visit in primary care: 02/22/2024 Please advise. Thank you. Elba Shrestha LPN. documented in this encounterC[facility]05-14-[facility] History of Present illness Narrative* Alirio Woodson APRN.ELECTRICAL INTEGRATOR - 12/07/2023 7:25 AM EDT SUBJECTIVE Ora Adams is a 53 year old female here today for a check up on her medical problems. Chief Complaint Patient presents with: Recheck Right Hip Pain: had been seeing Dr. Sagastume and is needing a new referral for ortho HPI Ora Adams is a 53 year old female. She is an established patient. She presents today for a routine follow up. History of HTN, hypothyroid, dysthymic disorder, insomnia. She had labs done prior to her visit today. Potassium was low so we increased her potassium dose short term. Working on weight loss, feeling good. Would like to try a decrease in her blood pressure medication. Sleeping well. Issues with arthralgia pain, was seeing Dr. Sagastume, he was prescribing her tramadol to use sparingly for the pain, wondering if we can prescribe short term tramadol for her. Her medications were reviewed today and her list is now up to date. Medications Current Outpatient Medications Medication Sig levothyroxine (SYNTHROID) 150 mcg tablet Take 1 tablet by mouth once daily. Take on empty stomach. For thyroid omeprazole (PRILOSEC) 40 mg capsule Take 1 capsule by mouth once daily. nystatin (MYCOSTATIN) cream Apply to affected area twice daily. nabumetone (RELAFEN) 500 mg tablet Take 500 mg by mouth twice daily. lisinopril-hydroCHLOROthiazide (ZESTORETIC) 20-25 mg per tablet Take 1 tablet by mouth every morning. potassium chloride SR (MICRO-K) 10 mEq CR capsule Take 2 capsules by mouth once daily. traMADol (ULTRAM) 50 mg tablet Take 1 tablet by mouth every 8 hours as needed for pain for up to 7 days. zolpidem (AMBIEN) 5 mg tablet Take 1 tablet by mouth at bedtime as needed for up to 60 days. No current facility-administered medications for this visit. 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 Cardiovascular: Negative. OBJECTIVE BP 126/92 Pulse 76 Wt 185 lb (83.9kg) SpO2 96% Physical Exam Vitals and nursing note reviewed. Constitutional: General: She is awake. She is not in acute distress. Appearance: Normal appearance. She is well-developed and well-groomed. She is not ill-appearing, toxic-appearing or diaphoretic. HENT: Head: Normocephalic. Right Ear: External ear normal. Left Ear: External ear normal. Nose: Nose normal. Eyes: General: Vision grossly intact. Conjunctiva/sclera: Conjunctivae normal. Pupils: Pupils are equal, round, and reactive to light. Neck: Vascular: No JVD. Trachea: Trachea normal. Cardiovascular: Rate and Rhythm: Normal rate and regular rhythm. Pulses: Normal pulses. Heart sounds: Normal heart sounds. No murmur heard. Pulmonary: Effort: Pulmonary effort is normal. No accessory muscle usage, prolonged expiration or respiratory distress. Breath sounds: Normal breath sounds. Musculoskeletal: Cervical back: Neck supple. Skin: General: Skin is warm and dry. Capillary Refill: Capillary refill takes less than 2 seconds. Neurological: General: No focal deficit present. Mental Status: She is alert and oriented to person, place, and time. Mental status is at baseline. Psychiatric: Attention and Perception: Attention and perception normal. Mood and Affect: Mood and affect normal. Speech: Speech normal. Behavior: Behavior normal. Behavior is cooperative. Thought Content: Thought content normal. Cognition and Memory: Cognition and memory normal. Judgment: Judgment normal. ASSESSMENT/PLAN: 1. Primary hypertension - ICD9: 401.9, ICD10: I10 (primary diagnosis) - Controlled - Recommend home blood pressure monitoring, to bring results to next visit - Encouraged sodium restriction, DASH or Mediterranean diet - Recommend regular aerobic exercise - Change medication to combo med and try reduced lisinopril dose - LISINOPRIL 20 MG-HYDROCHLOROTHIAZIDE 25 MG TABLET 2. 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 - continue current dose of Synthroid 3. Dysthymic disorder - ICD9: 300.4, ICD10: F34.1 Stable. 4. Obesity, Class I, BMI 30-34.9 - ICD9: 278.00, ICD10: E66.9 Weight decreasing 5. Arthritis - ICD9: 716.90, ICD10: M19.90 Discussed with patient that although Ultram/tramadol is not a narcotic it does carry the risk of addiction if taken over a long period of time. OARRS report reviewed and prescription is reasonable. Discussed that in addition this medicine can lower the seizure threshold and if patient had any history of seizures or seizure like activity which was not shared with provider today, they should not take this medicine. While taking ultram/tramadol patient was instructed to not drive or operate or be in vicinity of heavy machinery. PDMP website checked and validated. All prescriptions have been APPROPRIATELY filled. No suspiciousactivity was identified. 12/07/2023 by Alirio Woodson APRN.CNP - TRAMADOL 50 MG TABLET 6. Other insomnia - ICD9: 780.52, ICD10: G47.09 - ZOLPIDEM 5 MG TABLET 7. Encounter for therapeutic drug monitoring - ICD9: V58.83, ICD10: Z51.81 - POTASSIUM - COMPLETE BLOOD COUNT AND DIFFERENTIAL Portions of this note have been entered by ancillary staff. I have reviewed and when necessary edited, so that they are an adequate record of my encounter with this patient Please note that parts of this document were created using voice recognition software and therefore may contain grammatical errors. Patient verbalizes understanding of instructions from today's visit and in agreement with treatmentplan. Questions answered. Agrees to call the office if questions, concerns of issues with acute symptoms not improving or if they worsen. See diagnoses and orders for additional plan(s). Allergies and medications were reviewed, list was updated, and refills given if needed. Past medical, surgical, social, and family history reviewed and updated as appropriate. Encouraged proper diet & exercise as well as compliance with taking medications. Age- appropriate health preventative measures were discussed. Return in about 3 months (around 03/08/2024), or if symptoms worsen or fail to improve, for Follow up on chronic conditions and medications.. Alirio Woodson APRN-GABE documented in this encounterC[facility] Miscellaneous Notes* Telephone Encounter - Rossy Andrade LPN - 11/10/2023 4:16 PM EDT Refill request coming from pharmacy, Patient needs to call for refill. Left message for Patient to call & schedule an appt then refill can be put through. Rossy Andrade LPN documented in this encounterC[facility]01-27-[facility] Emergency department Note * Pollo Verma, - 08/21/2023 1:49 PM ESTAssociated Order(s): ECG 12 lead HPI Chief Complaint Patient presents with Weakness, Gen Patient to ED reference weakness and tired since early in the week and having intermittent double vision that started this morning. She has a history of drinking. Limitations to History: None HPI: 52-year-old female presents with concern for weakness and fatigue. States is been present overthe past 1 week. States that she has had some intermittent double vision. Denies any chest pain, shortness of breath, headache, neck pain, abdominal pain, urinary symptoms. History of breast cancer 6years ago. No chemotherapy in the past 4 years. Additional History Obtained from: Significant other at the bedside. Physical Exam: VS: As documented in the triage note and EMR flowsheet from this visit were reviewed. Appearance: Alert. cooperative, in no acute distress. Skin: Intact, dry skin, no lesions, rash, petechiae or purpura. Eyes: PERRLA, EOMs intact, Conjunctiva pink with no redness or exudates. HENT: Normocephalic, atraumatic. Nares patent. No intraoral lesions. Neck: Supple, without meningismus. Trachea at midline. No lymphadenopathy. Pulmonary: Clear bilaterally with good chest wall excursion. No rales, rhonchi or wheezing. No accessory muscle use or stridor. Cardiac: Regular rate and rhythm, no rubs, murmurs, or gallops. No JVD, Carotids without bruits. Abdomen: Abdomen is soft, nontender, and nondistended. No palpable organomegaly. No rebound or guarding. No CVA tenderness. Nonsurgical abdomen Genitourinary: Exam deferred. Musculoskeletal: Full range of motion. Pulses full and equal. No cyanosis, clubbing, or edema. Neurological: Cranial nerves are grossly intact, grossly normal sensation, no weakness, no focal findings identified. Psychiatric: Appropriate mood and affect. No data recorded Patient History No past medical history on file. No past surgical history on file. No family history on file. Social History Tobacco Use Smoking status: Not on file Smokeless tobacco: Not on file Substance Use Topics Alcohol use: Not on file Drug use: Not on file Physical Exam ED Triage Vitals [08/21/23 1356] Temperature Heart Rate Respirations BP 36.1 C (96.9 F) 100 20 (!) 142/99 Pulse Ox Temp Source Heart Rate Source Patient Position 94 % Temporal Monitor Lying BP Location FiO2 (%) Right arm -- Physical Exam ED Course & MDM Diagnoses as of 08/21/23 1618 Generalized weakness Alcohol abuse Medical Decision Making Labs Reviewed CBC WITH AUTO DIFFERENTIAL - Abnormal WBC 5.9 nRBC 0.0 RBC 3.91 (*) Hemoglobin 14.0 Hematocrit 40.6 MCV 104 (*) MCH 35.8 (*) MCHC 34.5 RDW 14.7 (*) Platelets 372 Neutrophils % 57.0 Immature Granulocytes %, Automated 0.3 Lymphocytes % 27.4 Monocytes % 12.4 Eosinophils % 1.0 Basophils % 1.9 Neutrophils Absolute 3.37 Immature Granulocytes Absolute, Au* 0.02 Lymphocytes Absolute 1.62 Monocytes Absolute 0.73 Eosinophils Absolute 0.06 Basophils Absolute 0.11 (*) COMPREHENSIVE METABOLIC PANEL - Abnormal Glucose 81 Sodium 131 (*) Potassium 3.7 Chloride 92 (*) Bicarbonate 22 Anion Gap 21 (*) Urea Nitrogen 9 Creatinine 0.74 eGFR >90 Calcium 8.9 Albumin 4.5 Alkaline Phosphatase 73 Total Protein 7.3 AST 175 (*) Bilirubin, Total 2.8 (*) ALT 91 (*) URINALYSIS WITH REFLEX CULTURE AND MICROSCOPIC - Abnormal Color, Urine Yellow Appearance, Urine Hazy (*) Specific [place], Urine 1.012 pH, Urine 6.0 Protein, Urine 30 (1+) (*) Glucose, Urine NEGATIVE Blood, Urine NEGATIVE Ketones, Urine 20 (1+) (*) Bilirubin, Urine NEGATIVE Urobilinogen, Urine <2.0 Nitrite, Urine NEGATIVE Leukocyte Esterase, Urine NEGATIVE URINALYSIS MICROSCOPIC WITH REFLEX CULTURE - Abnormal WBC, Urine 1-5 RBC, Urine 1-2 Squamous Epithelial Cells, Urine Bacteria, Urine 1+ (*) Mucus, Urine 1+ MAGNESIUM - Normal Magnesium 1.96 TROPONIN I, HIGH SENSITIVITY - Normal Troponin I, High Sensitivity 9 Narrative: Less than 99th percentile of normal range cutoff- Female and children under 18 years old <14 ng/L; Male <21 ng/L: Negative Repeat testing should be performed if clinically indicated. Female and children under 18 years old 14-50 ng/L; Male 21-50 ng/L: Consistent with possible cardiac damage and possible increased clinical risk. Serial measurements may help to assess extent of myocardial damage. >50 ng/L: Consistent with cardiac damage, increased clinical risk and myocardial infarction. Serial measurements may help assess extent of myocardial damage. NOTE: Children less than 1 year old may have higher baseline troponin levels and results should be interpreted in conjunction with the overall clinical context. NOTE: Troponin I testing is performed using a different testing methodology at [facility] than at located within [facility]. Direct result comparisons should only be made within the same method. SARS-COV-2 PCR, SYMPTOMATIC - Normal Coronavirus 2019, PCR Narrative: This assay has received FDA Emergency Use Authorization (EUA) and is only authorized forthe duration of time that circumstances exist to justify the authorization of the emergency use of in vitro diagnostic tests for the detection of SARS-CoV-2 virus and/or diagnosis of COVID-19 infection under section 564(b)(1) of the Act, 21 U.S.C. 360bbb-3(b)(1). This assay is an in vitro diagnostic nucleic acid amplification test for the qualitative detection of SARS-CoV-2 from nasopharyngeal specimens and has been validated for use at [place]. Negative results do not preclude COVID-19 infections and should not be used as the sole basis for diagnosis, treatment, or other management decisions. INFLUENZA A AND B PCR - Normal Flu A Result Flu B Result Narrative: This assay is an in vitro diagnostic multiplex nucleic acid amplification test for the detection and discrimination of Influenza A & B from nasopharyngeal specimens, and has been validated for use at [place]. Negative results do not preclude Influenza A/B infections, and should not be used as the sole basis for diagnosis, treatment, or other management decisions. If Influenza A/B and RSV PCR results are negative, testing for Parainfluenza virus, Adenovirus and Metapneumovirus is routinely performed for [facility] pediatric oncology and intensive care inpatients, and is available on other patients by placing an add-on request. URINALYSIS WITH REFLEX CULTURE AND MICROSCOPIC Narrative: The following orders were created for panel order Urinalysis with Reflex Culture and Microscopic. Procedure Abnormality Status --------- ------ Urinalysis with Reflex C...[[id number]] Abnormal Final result Extra Urine Esteves Tube[[id number]] In process Please view results for these tests on the individual orders. EXTRA URINE ESTEVES TUBE CT head wo IV contrast Final Result No CT evidence of acute intracranial pathology. MACRO: None Signed by: Quintin Sena 08/21/2023 3:47 PM Dictation workstation: [id number] XR chest 1 view Final Result Faint linear opacities in each lung base. MACRO: None. Signed by: Tracey Garnett 08/21/2023 2:53 PM Dictation workstation: [id number] Medical Decision Making: Patient appears well nontoxic. No focal deficit. AST of 175 and ALT of 91. Bilirubin of 2.8. Likelysecondary to the patient's alcohol abuse. Patient has no abdominal pain or vomiting. No evidence ofjaundice. Patient does have some leg weakness. Concern for possible vitamin deficiency. Patient wastreated with oral multivitamin, thiamine, folic acid. Patient also given 1 L of normal saline. Patient placed on CIWA protocol and did require 10 mg of intravenous Valium. I did discuss with the patient admission if she was going to withdrawal. She is declining at this time. Unclear if she is goingto stop drinking. Patient will be placed on oral thiamine as well as folic acid. Asked to follow-upwith primary care. Stable at time of discharge. Differential Diagnoses Considered: Vitamin deficiency, electrolyte abnormality, alcohol intoxication, intracranial hemorrhage versus mass, volume depletion Chronic Medical Conditions Significantly Affecting Care: alcohol abuse Independent Interpretation of Studies: I independently interpreted: CT brain shows no evidence of intracranial hemorrhage or mass. Chest x-ray without pneumothorax or pneumonia. Escalation of Care: Appropriate for discharge and follow-up with primary care. Prescription Drug Consideration: Oral thiamine and folate Procedure ECG 12 lead Performed by: Pollo Verma DO Authorized by: Pollo Verma DO ECG interpreted by ED Physician in the absence of a earth science technical officer: yes Comments: EKG interpreted by Dr. Pollo Verma: Normal sinus rhythm at 92 bpm. PA interval 166 ms. QTc of[address] changes. Pollo Verma DO 08/21/23 4695 documented in this [facility] Work Phone: 1(201) 825-152901-27-2024 Physician Emergency department Note* Pollo Verma DO - 08/21/2023 1:49 PM ESTAssociated Order(s): ECG 12 lead HPI Chief Complaint Patient presents with Weakness, Gen Patient to ED reference weakness and tired since early in the week and having intermittent double vision that started this morning. She has a history of drinking. Limitations to History: None HPI: 52-year-old female presents with concern for weakness and fatigue. States is been present overthe past 1 week. States that she has had some intermittent double vision. Denies any chest pain, shortness of breath, headache, neck pain, abdominal pain, urinary symptoms. History of breast cancer 6years ago. No chemotherapy in the past 4 years. Additional History Obtained from: Significant other at the bedside. Physical Exam: VS: As documented in the triage note and EMR flowsheet from this visit were reviewed. Appearance: Alert. cooperative, in no acute distress. Skin: Intact, dry skin, no lesions, rash, petechiae or purpura. Eyes: PERRLA, EOMs intact, Conjunctiva pink with no redness or exudates. HENT: Normocephalic, atraumatic. Nares patent. No intraoral lesions. Neck: Supple, without meningismus. Trachea at midline. No lymphadenopathy. Pulmonary: Clear bilaterally with good chest wall excursion. No rales, rhonchi or wheezing. No accessory muscle use or stridor. Cardiac: Regular rate and rhythm, no rubs, murmurs, or gallops. No JVD, Carotids without bruits. Abdomen: Abdomen is soft, nontender, and nondistended. No palpable organomegaly. No rebound or guarding. No CVA tenderness. Nonsurgical abdomen Genitourinary: Exam deferred. Musculoskeletal: Full range of motion. Pulses full and equal. No cyanosis, clubbing, or edema. Neurological: Cranial nerves are grossly intact, grossly normal sensation, no weakness, no focal findings identified. Psychiatric: Appropriate mood and affect. No data recorded Patient History No past medical history on file. No past surgical history on file. No family history on file. Social History Tobacco Use Smoking status: Not on file Smokeless tobacco: Not on file Substance Use Topics Alcohol use: Not on file Drug use: Not on file Physical Exam ED Triage Vitals [08/21/23 1356] Temperature Heart Rate Respirations BP 36.1 C (96.9 F) 100 20 (!) 142/99 Pulse Ox Temp Source Heart Rate Source Patient Position 94 % Temporal Monitor Lying BP Location FiO2 (%) Right arm -- Physical Exam ED Course & MDM Diagnoses as of 08/21/23 1618 Generalized weakness Alcohol abuse Medical Decision Making Labs Reviewed CBC WITH AUTO DIFFERENTIAL - Abnormal WBC 5.9 nRBC 0.0 RBC 3.91 (*) Hemoglobin 14.0 Hematocrit 40.6 MCV 104 (*) MCH 35.8 (*) MCHC 34.5 RDW 14.7 (*) Platelets 372 Neutrophils % 57.0 Immature Granulocytes %, Automated 0.3 Lymphocytes % 27.4 Monocytes % 12.4 Eosinophils % 1.0 Basophils % 1.9 Neutrophils Absolute 3.37 Immature Granulocytes Absolute, Au* 0.02 Lymphocytes Absolute 1.62 Monocytes Absolute 0.73 Eosinophils Absolute 0.06 Basophils Absolute 0.11 (*) COMPREHENSIVE METABOLIC PANEL - Abnormal Glucose 81 Sodium 131 (*) Potassium 3.7 Chloride 92 (*) Bicarbonate 22 Anion Gap 21 (*) Urea Nitrogen 9 Creatinine 0.74 eGFR >90 Calcium 8.9 Albumin 4.5 Alkaline Phosphatase 73 Total Protein 7.3 AST 175 (*) Bilirubin, Total 2.8 (*) ALT 91 (*) URINALYSIS WITH REFLEX CULTURE AND MICROSCOPIC - Abnormal Color, Urine Yellow Appearance, Urine Hazy (*) Specific [place], Urine 1.012 pH, Urine 6.0 Protein, Urine 30 (1+) (*) Glucose, Urine NEGATIVE Blood, Urine NEGATIVE Ketones, Urine 20 (1+) (*) Bilirubin, Urine NEGATIVE Urobilinogen, Urine <2.0 Nitrite, Urine NEGATIVE Leukocyte Esterase, Urine NEGATIVE URINALYSIS MICROSCOPIC WITH REFLEX CULTURE - Abnormal WBC, Urine 1-5 RBC, Urine 1-2 Squamous Epithelial Cells, Urine Bacteria, Urine 1+ (*) Mucus, Urine 1+ MAGNESIUM - Normal Magnesium 1.96 TROPONIN I, HIGH SENSITIVITY - Normal Troponin I, High Sensitivity 9 Narrative: Less than 99th percentile of normal range cutoff- Female and children under 18 years old <14 ng/L; Male <21 ng/L: Negative Repeat testing should be performed if clinically indicated. Female and children under 18 years old 14-50 ng/L; Male 21-50 ng/L: Consistent with possible cardiac damage and possible increased clinical risk. Serial measurements may help to assess extent of myocardial damage. >50 ng/L: Consistent with cardiac damage, increased clinical risk and myocardial infarction. Serial measurements may help assess extent of myocardial damage. NOTE: Children less than 1 year old may have higher baseline troponin levels and results should be interpreted in conjunction with the overall clinical context. NOTE: Troponin I testing is performed using a different testing methodology at [facility] than at other [facility]. Direct result comparisons should only be made within the same method. SARS-COV-2 PCR, SYMPTOMATIC - Normal Coronavirus 2019, PCR Narrative: This assay has received FDA Emergency Use Authorization (EUA) and is only authorized forthe duration of time that circumstances exist to justify the authorization of the emergency use of in vitro diagnostic tests for the detection of SARS-CoV-2 virus and/or diagnosis of COVID-19 infection under section 564(b)(1) of the Act, 21 U.S.C. 360bbb-3(b)(1). This assay is an in vitro diagnostic nucleic acid amplification test for the qualitative detection of SARS-CoV-2 from nasopharyngeal specimens and has been validated for use at [place]. Negative results do not preclude COVID-19 infections and should not be used as the sole basis for diagnosis, treatment, or other management decisions. INFLUENZA A AND B PCR - Normal Flu A Result Flu B Result Narrative: This assay is an in vitro diagnostic multiplex nucleic acid amplification test for the detection and discrimination of Influenza A & B from nasopharyngeal specimens, and has been validated for use at [place]. Negative results do not preclude Influenza A/B infections, and should not be used as the sole basis for diagnosis, treatment, or other management decisions. If Influenza A/B and RSV PCR results are negative, testing for Parainfluenza virus, Adenovirus and Metapneumovirus is routinely performed for [facility] pediatric oncology and intensive care inpatients, and is available on other patients by placing an add-on request. URINALYSIS WITH REFLEX CULTURE AND MICROSCOPIC Narrative: The following orders were created for panel order Urinalysis with Reflex Culture and Microscopic. Procedure Abnormality Status --------- ------ Urinalysis with Reflex C...[[id number]] Abnormal Final result Extra Urine Esteves Tube[[id number]] In process Please view results for these tests on the individual orders. EXTRA URINE ESTEVES TUBE CT head wo IV contrast Final Result No CT evidence of acute intracranial pathology. MACRO: None Signed by: Quintin Sena 08/21/2023 3:47 PM Dictation workstation: [id number] XR chest 1 view Final Result Faint linear opacities in each lung base. MACRO: None. Signed by: Tracey Garnett 08/21/2023 2:53 PM Dictation workstation: [id number] Medical Decision Making: Patient appears well nontoxic. No focal deficit. AST of 175 and ALT of 91. Bilirubin of 2.8. Likelysecondary to the patient's alcohol abuse. Patient has no abdominal pain or vomiting. No evidence ofjaundice. Patient does have some leg weakness. Concern for possible vitamin deficiency. Patient wastreated with oral multivitamin, thiamine, folic acid. Patient also given 1 L of normal saline. Patient placed on CIWA protocol and did require 10 mg of intravenous Valium. I did discuss with the patient admission if she was going to withdrawal. She is declining at this time. Unclear if she is goingto stop drinking. Patient will be placed on oral thiamine as well as folic acid. Asked to follow-upwith primary care. Stable at time of discharge. Differential Diagnoses Considered: Vitamin deficiency, electrolyte abnormality, alcohol intoxication, intracranial hemorrhage versus mass, volume depletion Chronic Medical Conditions Significantly Affecting Care: alcohol abuse Independent Interpretation of Studies: I independently interpreted: CT brain shows no evidence of intracranial hemorrhage or mass. Chest x-ray without pneumothorax or pneumonia. Escalation of Care: Appropriate for discharge and follow-up with primary care. Prescription Drug Consideration: Oral thiamine and folate Procedure ECG 12 lead Performed by: Pollo eVrma DO Authorized by: Pollo Verma DO ECG interpreted by ED Physician in the absence of a earth science technical officer: yes Comments: EKG interpreted by Dr. Pollo Verma: Normal sinus rhythm at 92 bpm. PA interval 166 ms. QTc of[address] changes. Pollo Verma DO 08/21/23 1625 [facility] Work Phone: 1(457) 443-803510-18-2023 Miscellaneous Notes* Telephone Encounter - Erika Angeles LPN - 05/12/2023 10:41 AM EDT PA completed for phentermine-topiramate ER (QSYMIA) 11.25-69 mg 24 Hr Capsule Fax denial rec'd noting this is not covered by the plan. documented in this [facility]10[facility] Miscellaneous Notes* Telephone Encounter - Estelle Dove OCCA - 05/07/2023 10:42 AM EDT HALIE 03/10/23 NOV 06/08/23 Please review patient message and advise. Thank you. NOLBERTO Padilla documented in this encounterC[facility]08-16-[facility]23 History of Present illness Narrative* Alirio Woodson APRN.ELECTRICAL INTEGRATOR - 03/10/2023 7:18 AM EDT SUBJECTIVE Ora Adams is a 52 year old female here today for a check up on her medical problems. Chief Complaint Patient presents with: 4 week follow up HPI Ora Adams is a 52 year old female established patient. She presents today for a follow up. Shehad labs done prior to her visit today. Following up on weight management, hypothyroid, hypertension, mood. She has lost about 5 pounds since last visit. Tolerating low dose of Qsymia well. Followingweight loss plan of diet changes and increased exercise. Some increased stress with work. Quit taking Cymbalta, did not feel it really helped mood. Wondering what else she could try. Sleep is not great, using the Trazodone as needed, helpful at times. Blood pressure seems to be doing better. Drinking lots of water. Feeling somewhat better. Labs show thyroid is still hypoactive. Concerns of a rashto the groin with the heat lately. Her medications were reviewed today and her list is now up to date. Medications Current Outpatient Medications Medication Sig potassium chloride ER (KLOR-CON) 20 mEq tablet Take 1 tablet by mouth once daily. traZODone (DESYREL) 100 mg tablet Take 1 tablet by mouth once daily. lisinopril (ZESTRIL) 40 mg tablet Take 1 tablet by mouth once daily. tiZANidine HCl (ZANAFLEX) 4 mg capsule Take 1 capsule by mouth as needed. nabumetone (RELAFEN) 500 mg tablet Take 500 mg by mouth twice daily. hydroCHLOROthiazide 50 mg tablet Take 0.5 tablets by mouth once daily. phentermine-topiramate ER (QSYMIA) 7.5-46 mg 24 Hr Capsule Take 1 capsule by mouth once daily for 60 days. levothyroxine (SYNTHROID) 150 mcg tablet Take 1 tablet by mouth once daily. Take on empty stomach. For thyroid omeprazole (PRILOSEC) 40 mg capsule Take 1 capsule by mouth once daily. nystatin (MYCOSTATIN) cream Apply to affected area twice daily. buPROPion SR (WELLBUTRIN SR) 150 mg 12 hr tablet Take 1 tablet by mouth twice daily. No current facility-administered medications for this visit. 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 Cardiovascular: Negative. OBJECTIVE BP 124/82 Pulse 83 Wt 228 lb (103.4kg) SpO2 98% Physical Exam Vitals and nursing note reviewed. Constitutional: General: She is awake. She is not in acute distress. Appearance: Normal appearance. She is well-developed and well-groomed. She is not ill-appearing, toxic-appearing or diaphoretic. HENT: Head: Normocephalic. Right Ear: External ear normal. Left Ear: External ear normal. Nose: Nose normal. Eyes: General: Vision grossly intact. Conjunctiva/sclera: Conjunctivae normal. Pupils: Pupils are equal, round, and reactive to light. Neck: Vascular: No JVD. Trachea: Trachea normal. Cardiovascular: Rate and Rhythm: Normal rate and regular rhythm. Pulses: Normal pulses. Heart sounds: Normal heart sounds. No murmur heard. Pulmonary: Effort: Pulmonary effort is normal. No accessory muscle usage, prolonged expiration or respiratory distress. Breath sounds: Normal breath sounds. Musculoskeletal: Cervical back: Neck supple. Skin: General: Skin is warm and dry. Capillary Refill: Capillary refill takes less than 2 seconds. Neurological: General: No focal deficit present. Mental Status: She is alert and oriented to person, place, and time. Mental status is at baseline. Psychiatric: Attention and Perception: Attention and perception normal. Mood and Affect: Mood and affect normal. Speech: Speech normal. Behavior: Behavior normal. Behavior is cooperative. Thought Content: Thought content normal. Cognition and Memory: Cognition and memory normal. Judgment: Judgment normal. ASSESSMENT/PLAN: 1. Obesity, Class III, BMI >= 40 - ICD9: 278.01, ICD10: E66.01 (primary diagnosis) Weight decreasing - Behavioral intervention, - Pharmacological intervention, - Continue current medications, - Increase Phentermine/topiamate (Qsymia), and - Add Bupropion - QSYMIA 7.5 MG-46 MG CAPSULE, EXTENDED RELEASE 2. 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 - Increase Synthroid dose to 0.150 mg - LEVOTHYROXINE 150 MCG TABLET 3. Primary hypertension - ICD9: 401.9, ICD10: I10 - Controlled - Decrease hydrochlorothiazide since sodium low, kidney function slightly up - Recommend home blood pressure monitoring, to bring results to next visit - Encouraged sodium restriction, DASH or Mediterranean diet - Recommend regular aerobic exercise - HYDROCHLOROTHIAZIDE 50 MG TABLET 4. Dysthymic disorder - ICD9: 300.4, ICD10: F34.1 Stop Cymbalta, start Wellbutrin 5. Yeast dermatitis - ICD9: 112.3, ICD10: B37.2 - NYSTATIN 100,000 UNIT/GRAM TOPICAL CREAM 6. Encounter for therapeutic drug monitoring - ICD9: V58.83, ICD10: Z51.81 - TSH BLD - T3 FREE BLD - T4 FREE/FREE THYROX - BASIC METABOLIC PNL Portions of this note have been entered by ancillary staff. I have reviewed and when necessary edited, so that they are an adequate record of my encounter with this patient Please note that parts of this document were created using voice recognition software and therefore may contain grammatical errors. Patient verbalizes understanding of instructions from today's visit and in agreement with treatmentplan. Questions answered. Agrees to call the office if questions, concerns of issues with acute symptoms not improving or if they worsen. See diagnoses and orders for additional plan(s). Allergies and medications were reviewed, list was updated, and refills given if needed. Past medical, surgical, social, and family history reviewed and updated as appropriate. Encouraged proper diet & exercise as well as compliance with taking medications. Age- appropriate health preventative measures were discussed. Return in about 3 months (around 06/10/2023) for Follow up on chronic conditions and medications.. Alirio Woodson APRN-GABE documented in this encounterC[facility] Miscellaneous Notes* Telephone Encounter - Daysi Emery Ma - 02/03/2023 3:42 PM EDT PA completed for Qsymia and denied. [facility] Yuly Mendoza documented in this encounterC[facility]07-11-[facility] History of Present illness Narrative* Alirio Woodson APRN.CNP - 02/02/2023 7:38 AM EDT SUBJECTIVE Ora Adams is a 52 year old female here today for a check up on her medical problems. Chief Complaint Patient presents with: Recheck: blood pressure and thyroid Weight Problem HPI Ora Adams is a 52 year old female established patient who presents today for concerns of a weight problem and recheck on blood pressure and thyroid. Blood pressure doing better with home monitoring. She had labs with ENT, potassium and sodium were low. Increased potassium dose. Taking her thyroid medication and overall feeling better but still not seeing much improvement in weight loss. Trying to work on weight with weight loss program on her own, changing diet, increasing activity. She would like to try Qsymia. Her medications were reviewed today and her list is now up to date. Medications Current Outpatient Medications Medication Sig levothyroxine (SYNTHROID) 112 mcg tablet Take 1 tablet by mouth once daily. Take on empty stomach. For thyroid traZODone (DESYREL) 100 mg tablet Take 1 tablet by mouth once daily. DULoxetine (CYMBALTA) 20 mg capsule Take 1 capsule by mouth once daily. lisinopril (ZESTRIL) 40 mg tablet Take 1 tablet by mouth once daily. hydroCHLOROthiazide 50 mg tablet Take 1 tablet by mouth once daily. tiZANidine HCl (ZANAFLEX) 4 mg capsule Take 1 capsule by mouth as needed. nabumetone (RELAFEN) 500 mg tablet Take 500 mg by mouth twice daily. potassium chloride ER (KLOR-CON) 20 mEq tablet Take 1 tablet by mouth once daily. phentermine-topiramate ER (QSYMIA) 3.75-23 mg 24 Hr Capsule Take 1 capsule by mouth once daily for 30 days. No current facility-administered medications for this visit. 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 Cardiovascular: Negative. OBJECTIVE BP 132/86 Pulse 83 Wt 233 lb (105.7kg) SpO2 95% Physical Exam Vitals and nursing note reviewed. Constitutional: General: She is awake. She is not in acute distress. Appearance: Normal appearance. She is well-developed and well-groomed. She is obese. She is not ill-appearing, toxic-appearing or diaphoretic. HENT: Head: Normocephalic. Right Ear: External ear normal. Left Ear: External ear normal. Nose: Nose normal. Eyes: General: Vision grossly intact. Conjunctiva/sclera: Conjunctivae normal. Pupils: Pupils are equal, round, and reactive to light. Neck: Vascular: No JVD. Trachea: Trachea normal. Cardiovascular: Rate and Rhythm: Normal rate and regular rhythm. Pulses: Normal pulses. Heart sounds: Normal heart sounds. No murmur heard. Pulmonary: Effort: Pulmonary effort is normal. No accessory muscle usage, prolonged expiration or respiratory distress. Breath sounds: Normal breath sounds. Musculoskeletal: Cervical back: Neck supple. Skin: General: Skin is warm and dry. Capillary Refill: Capillary refill takes less than 2 seconds. Neurological: General: No focal deficit present. Mental Status: She is alert and oriented to person, place, and time. Mental status is at baseline. Psychiatric: Attention and Perception: Attention and perception normal. Mood and Affect: Mood and affect normal. Speech: Speech normal. Behavior: Behavior normal. Behavior is cooperative. Thought Content: Thought content normal. Cognition and Memory: Cognition and memory normal. Judgment: Judgment normal. ASSESSMENT/PLAN: 1. Primary hypertension - ICD9: 401.9, ICD10: I10 (primary diagnosis) - Improving control, stable. - Continue current medications - Recommend home blood pressure monitoring, to bring results to next visit - Encouraged sodium restriction, DASH or Mediterranean diet - Recommend regular aerobic exercise - BASIC METABOLIC PNL 2. 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 - Instructed patient on importance of taking on an empty stomach either first thing in the morning or at bedtime. - TSH BLD 3. Low blood potassium - ICD9: 276.8, ICD10: E87.6 - POTASSIUM CHLORIDE ER 20 MEQ TABLET,EXTENDED RELEASE(PART/CRYST) - BASIC METABOLIC PNL 4. Obesity, Class III, BMI >= 40 - ICD9: 278.01, ICD10: E66.01 - Behavioral intervention, - Pharmacological intervention, and - Add Phentermine/topiamate (Qsymia) Start low dose of Qsymia, make sure that blood pressure stays stable and is well tolerated then we can increase this if no issues. - QSYMIA 3.75 MG-23 MG CAPSULE, EXTENDED RELEASE Portions of this note have been entered by ancillary staff. I have reviewed and when necessary edited, so that they are an adequate record of my encounter with this patient Please note that parts of this document were created using voice recognition software and therefore may contain grammatical errors. Patient verbalizes understanding of instructions from today's visit and in agreement with treatmentplan. Questions answered. Agrees to call the office if questions, concerns of issues with acute symptoms not improving or if they worsen. See diagnoses and orders for additional plan(s). Allergies and medications were reviewed, list was updated, and refills given if needed. Past medical, surgical, social, and family history reviewed and updated as appropriate. Encouraged proper diet & exercise as well as compliance with taking medications. Age- appropriate health preventative measures were discussed. Return in about 4 weeks (around 03/02/2023) for recheck on new medication.. Alirio Woodson APRN-GABE documented in this encounterC[facility]06-15-2023 Miscellaneous Notes* Telephone Encounter - Rossy Andrade LPN - 01/07/2023 3:41 PM EDT Patient has been identified by name and date of : Yes Patient phones for refill(s): Requested Prescriptions Pending Prescriptions Disp Refills potassium chloride (K-TAB) 10 mEq tablet 90 tablet 1 Sig: Take 1 tablet by mouth daily with breakfast. Date of last office visit in primary care: 12/29/2022 4 week follow-up: 02/02/2023 Last 2 Encounter Wt Readings: Date: Wt: 12/29/2022 108.4 kg (239 lb) 12/02/2022 104.8 kg (231 lb) Previous labs/tests for medication: Potassium: No components found for: POT Please advise. Thank you. Rossy Andrade LPN documented in this encounterC[facility]06-07-2023 Miscellaneous Notes* Telephone Encounter - Alirio Woodson APRN.CNP - 12/30/2022 4:52 PM EDT documented in this encounterC[facility]06-06-2023 History of Present illness Narrative* Alirio Woodson APRN.CNP - 12/29/2022 7:50 AM EDT SUBJECTIVE Ora Adams is a 52 year old female here today for a check up on her medical problems. Chief Complaint Patient presents with: Recheck: blood pressure and thyroid HPI Ora is a 52 year old female who presents for follow-up for hypertension. Last seen 12/02. They are here today for a recheck of blood pressure. Blood pressure appears to be improved but still elevated. Denies any symptoms referable to elevated blood pressure. Specifically denies headache, chest pain, palpitations, dyspnea and peripheral edema. Tolerating medications well. Swelling with calcium channel blockers in the past. Last visit we started a low dose of Cymbalta. She thought it might be giving her some dry mouth. Stopped it for a short time, planning to restart it. Sleeping better with trazodone. Taking the 100 mgdose. Has been taking her synthroid. Is tolerating medication well. Denies palpitations, heat and cold intolerance, and brittle/broken hair and nails. Ankle feeling better. Not on gabapentin any more. Trying to walk more. Wants to work on weight loss. Her medications were reviewed today and her list is now up to date. Medications Current Outpatient Medications Medication Sig levothyroxine 75 mcg cap Take 1 capsule by mouth daily before breakfast. tiZANidine HCl (ZANAFLEX) 4 mg capsule Take 1 capsule by mouth as needed. nabumetone (RELAFEN) 500 mg tablet Take 500 mg by mouth twice daily. traZODone (DESYREL) 100 mg tablet Take 1 tablet by mouth once daily. DULoxetine (CYMBALTA) 20 mg capsule Take 1 capsule by mouth once daily. lisinopril (ZESTRIL) 40 mg tablet Take 1 tablet by mouth once daily. hydroCHLOROthiazide 50 mg tablet Take 1 tablet by mouth once daily. potassium chloride (K-TAB) 10 mEq tablet Take 1 tablet by mouth daily with breakfast. No current facility-administered medications for this visit. 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 Cardiovascular: Negative. OBJECTIVE BP 146/106 Pulse 75 Wt 239 lb (108.4kg) SpO2 97% Physical Exam Vitals and nursing note reviewed. Constitutional: General: She is awake. She is not in acute distress. Appearance: Normal appearance. She is well-developed and well-groomed. She is obese. She is not ill-appearing, toxic-appearing or diaphoretic. HENT: Head: Normocephalic. Right Ear: External ear normal. Left Ear: External ear normal. Nose: Nose normal. Eyes: General: Vision grossly intact. Conjunctiva/sclera: Conjunctivae normal. Pupils: Pupils are equal, round, and reactive to light. Neck: Vascular: No JVD. Trachea: Trachea normal. Cardiovascular: Rate and Rhythm: Normal rate and regular rhythm. Pulses: Normal pulses. Heart sounds: Normal heart sounds. No murmur heard. Pulmonary: Effort: Pulmonary effort is normal. No accessory muscle usage, prolonged expiration or respiratory distress. Breath sounds: Normal breath sounds. Musculoskeletal: Cervical back: Neck supple. Skin: General: Skin is warm and dry. Capillary Refill: Capillary refill takes less than 2 seconds. Neurological: General: No focal deficit present. Mental Status: She is alert and oriented to person, place, and time. Mental status is at baseline. Psychiatric: Attention and Perception: Attention and perception normal. Mood and Affect: Mood and affect normal. Speech: Speech normal. Behavior: Behavior normal. Behavior is cooperative. Thought Content: Thought content normal. Cognition and Memory: Cognition and memory normal. Judgment: Judgment normal. ASSESSMENT/PLAN: 1. Primary hypertension - ICD9: 401.9, ICD10: I10 (primary diagnosis) - Improving control - Increase hydrochlorothiazide - Recommend home blood pressure monitoring, to bring results to next visit - Encouraged sodium restriction, DASH or Mediterranean diet - Recommend regular aerobic exercise - Discussed need for and benefit of weight loss. BMI 42.34 kg/(m^2) - LISINOPRIL 40 MG TABLET - HYDROCHLOROTHIAZIDE 50 MG TABLET 2. 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 - check TSH today - TSH BLD - T3 FREE BLD - T4 FREE/FREE THYROX 3. Dysthymic disorder - ICD9: 300.4, ICD10: F34.1 - TRAZODONE 100 MG TABLET - DULOXETINE 20 MG CAPSULE,DELAYED RELEASE 4. Low blood potassium - ICD9: 276.8, ICD10: E87.6 - POTASSIUM CHLORIDE ER 10 MEQ TABLET,EXTENDED RELEASE 5. Obesity, Class III, BMI >= 40 - ICD9: 278.01, ICD10: E66.01 Working on weight loss, will send handouts via my chart. - HGB A1C - INSULIN ASSAY BLOOD 6. Encounter for therapeutic drug monitoring - ICD9: V58.83, ICD10: Z51.81 - TSH BLD - BASIC METABOLIC PNL - T3 FREE BLD - T4 FREE/FREE THYROX Portions of this note have been entered by ancillary staff. I have reviewed and when necessary edited, so that they are an adequate record of my encounter with this patient Please note that parts of this document were created using voice recognition software and therefore may contain grammatical errors. Patient verbalizes understanding of instructions from today's visit and in agreement with treatmentplan. Questions answered. Agrees to call the office if questions, concerns of issues with acute symptoms not improving or if they worsen. Return in about 4 weeks (around 01/26/2023) for recheck on blood pressure. Alirio Woodson APRN-GABE documented in this encounterC[facility]05-12-2023 Miscellaneous Notes* Telephone Encounter - Elba Shrestha LPN - 12/04/2022 3:15 PM EDT PATIENT NOTIFIED OF SAME. * Telephone Encounter - Alirio Woodson APRN.CNP - 12/04/2022 3:05 PM EDT Recheck of labs after follow up in December, can order at [facility] appointment. * Telephone Encounter - Addison Banda RN - 12/04/2022 2:10 PM EDT Patient returned call and given provider's message below with verbalized understanding. Patient agreeable and asking office to let her know when orders are in the lab to go for re-check. * Telephone Encounter - Elba Shrestha LPN - 12/04/2022 1:56 PM EDT LEFT MESSAGE FOR PATIENT TO CALL OFFICE. * Telephone Encounter - Alirio Woodson APRN.CNP - 12/04/2022 12:28 PM EDT Please let Ora know as we expected her labs show her thyroid is underactive, I am sending in for her to start the 75 mcg levothyroxine dose and we will repeat labs in a few weeks and adjust from there. documented in this encounterC[facility]05-10-2023 Miscellaneous Notes* Telephone Encounter - Elba Shrestha LPN - 12/02/2022 1:45 PM EDT Records release has been faxed. * Telephone Encounter - Kandis Bullock LPN - 12/02/2022 1:17 PM EDT Pt was seen by Dr Carroll Chaparro at [facility]. . Pt states she was last seen in 2019 or 2020. Kandis Bullock LPN * Telephone Encounter - Elba Shrestha LPN - 12/02/2022 9:59 AM EDT LEFT MESSAGE FOR PATIENT TO CALL OFFICE. * Telephone Encounter - Alirio Woodson APRN.CNP - 12/02/2022 9:34 AM EDT Can we reach out to patient to see where to request records from? Thanks! * Telephone Encounter - Nadine Bennett LPN - 12/02/2022 9:26 AM EDT Dx: History of breast cancer [Z85.3 (ICD-10-CM)] We will need records from previous oncologist, including pathology, imaging, labs and office/treatment notes. * Telephone Encounter - Ron Garcia - 12/02/2022 8:55 AM EDT Patient needs consult scheduled for [facility], Please reach out to schedule documented in this encounterC[facility]05-10-2023 History of Present illness Narrative* Alirio Woodson APRN.CNP - 12/02/2022 8:16 AM EDT SUBJECTIVE Ora Aadms is a 52 year old female here today to establish care. Chief Complaint Patient presents with: Establish Care HPI Ora Adams is a 52 year old female who presents today to establish care. 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 Sees Dr. Higginbotham with [facility] for recent fracture, Dr. Mccoy ENT, prior hysterectomy. Has had bilateral mastectomy for breast CA, does not do mammograms. History of htn, hypothyroid, has not been on medications. Recent weight gain. Low motivation. Tried Cymbalta in the past, Effexor in the past too. Not sleeping well. Her medications were reviewed today and her list is now up to date. Medications Current Outpatient Medications Medication Sig levothyroxine 137 mcg cap Take 1 capsule by mouth once daily. gabapentin (NEURONTIN) 100 mg capsule Take 1 capsule by mouth once daily. gabapentin (NEURONTIN) 300 mg capsule Take 1 capsule by mouth daily at bedtime. tiZANidine HCl (ZANAFLEX) 4 mg capsule Take 1 capsule by mouth as needed. nabumetone (RELAFEN) 500 mg tablet Take 500 mg by mouth twice daily. traZODone (DESYREL) 50 mg tablet Take 1-2 tablets by mouth once daily. DULoxetine (CYMBALTA) 20 mg capsule Take 1 capsule by mouth once daily. lisinopril (ZESTRIL) 40 mg tablet Take 1 tablet by mouth once daily. hydroCHLOROthiazide 25 mg tablet Take 1 tablet by mouth once daily. No current facility-administered medications for this visit. 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 Respiratory: Negative. Cardiovascular: Negative for chest pain and palpitations. Psychiatric/Behavioral: Positive for dysphoric mood and sleep disturbance. OBJECTIVE BP 180/126 Pulse 85 Ht 5' 3 (1.60m) Wt 231 lb (104.8kg) SpO2 96% BMI 40.93 kg/(m^2). Physical Exam Vitals and nursing note reviewed. Constitutional: General: She is awake. She is not in acute distress. Appearance: Normal appearance. She is well-developed and well-groomed. She is obese. She is not ill-appearing, toxic-appearing or diaphoretic. HENT: Head: Normocephalic. Right Ear: External ear normal. Left Ear: External ear normal. Nose: Nose normal. Eyes: General: Vision grossly intact. Conjunctiva/sclera: Conjunctivae normal. Pupils: Pupils are equal, round, and reactive to light. Neck: Vascular: No JVD. Trachea: Trachea normal. Cardiovascular: Rate and Rhythm: Normal rate and regular rhythm. Pulses: Normal pulses. Heart sounds: Normal heart sounds. No murmur heard. Pulmonary: Effort: Pulmonary effort is normal. No accessory muscle usage, prolonged expiration or respiratory distress. Breath sounds: Normal breath sounds. Musculoskeletal: Cervical back: Neck supple. Skin: General: Skin is warm and dry. Capillary Refill: Capillary refill takes less than 2 seconds. Neurological: General: No focal deficit present. Mental Status: She is alert and oriented to person, place, and time. Mental status is at baseline. Psychiatric: Attention and Perception: Attention and perception normal. Mood and Affect: Mood and affect normal. Speech: Speech normal. Behavior: Behavior normal. Behavior is cooperative. Thought Content: Thought content normal. Cognition and Memory: Cognition and memory normal. Judgment: Judgment normal. ASSESSMENT/PLAN: 1. Primary hypertension - ICD9: 401.9, ICD10: I10 (primary diagnosis) - poor control - noncompliance - factors affecting control of BP include poor adherence to medications and diet, being overweight,and lack of exercise. - Restart HCTZ, lisinopril (Zestril/Prinivil) - Encouraged dietary sodium restriction/DASH diet - Recommended regular aerobic exercise. - Recommend home blood pressure monitoring, to bring results in on next visit - Follow up in 1 month for BP recheck. Check weekly at work. Call if still high with getting back on meds - Reviewed risks of HTN and principles of treatment - Goal of BP <140/90 - LISINOPRIL 40 MG TABLET - HYDROCHLOROTHIAZIDE 25 MG TABLET 2. 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 - check TSH, free T4, and Free T3 today - LEVOTHYROXINE 137 MCG CAPSULE - TSH BLD - T3 FREE BLD - T4 FREE/FREE THYROX 3. Dysthymic disorder - ICD9: 300.4, ICD10: F34.1 Depression Screening 11/29/2022 12/02/2022 PHQ-2 Score 4 4 PHQ-9 Score 12 - Depression screening tool completed and reviewed. Based on score and interview, patient is already diagnosed with depression. Screening tool discussed with patient, and I recommended starting medication. - DEPRESSION SCREENING/ASSESSMENT - TRAZODONE 50 MG TABLET - DULOXETINE 20 MG CAPSULE,DELAYED RELEASE 4. Closed fracture of right ankle with delayed healing, subsequent encounter - ICD9: V54.19, ICD10:S82.891G - GABAPENTIN 100 MG CAPSULE - GABAPENTIN 300 MG CAPSULE - TIZANIDINE 4 MG CAPSULE 5. Arthritis - ICD9: 716.90, ICD10: M19.90 - TIZANIDINE 4 MG CAPSULE - NABUMETONE 500 MG TABLET 6. Obesity, Class III, BMI >= 40 - ICD9: 278.01, ICD10: E66.01 7. History of breast cancer - ICD9: V10.3, ICD10: Z85.3 - CONSULT TO HEMATOLOGY/ONCOLOGY 8. Encounter for therapeutic drug monitoring - ICD9: V58.83, ICD10: Z51.81 - CBC + DIFF - COMP METABOLIC PANEL 9. Screening for lipid disorders - ICD9: V77.91, ICD10: Z13.220 - LIPID PANEL BASIC 10. Encounter to establish care - ICD9: V65.8, ICD10: Z76.89 Portions of this note have been entered by ancillary staff. I have reviewed and when necessary edited, so that they are an adequate record of my encounter with this patient Please note that parts of this document were created using voice recognition software and therefore may contain grammatical errors. Patient verbalizes understanding of instructions from today's visit and in agreement with treatmentplan. Questions answered. Agrees to call the office if questions, concerns of issues with acute symptoms not improving or if they worsen. See diagnoses and orders for additional plan(s). Allergies and medications were reviewed, list was updated, and refills given if needed. Past medical, surgical, social, and family history reviewed and updated as appropriate. Encouraged proper diet & exercise as well as compliance with taking medications. Age- appropriate health preventative measures were discussed. Return in about 4 weeks (around 12/30/2022) for recheck on new medication.. 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 Dysthymic disorder Closed fracture of right ankle with delayed healing, subsequent encounter Arthritis Arthropathy, unspecified, site unspecified Obesity, Class III, BMI >= 40 Morbid obesity History of breast cancer Personal history of malignant neoplasm of breast Encounter for therapeutic drug monitoring Screening for lipid disorders Encounter to establish care Other reasons for seeking consultation documented in this encounter [facility] note* Diagnosis 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 documented in this encounter [facility] note* Diagnosis Primary hypertension- Primary Unspecified essential hypertension 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 Dysthymic disorder Low blood potassium Hypopotassemia Obesity, Class III, BMI >= 40 Morbid obesity Encounter for therapeutic drug monitoring documented in this encounter [facility] note* Diagnosis Low blood potassium Hypopotassemia documented in this encounter [facility] note* Diagnosis Primary hypertension- Primary Unspecified essential hypertension 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 Low blood potassium Hypopotassemia Obesity, Class III, BMI >= 40 Morbid obesity documented in this encounter [facility] note* Diagnosis Obesity, Class III, BMI >= 40- Primary Morbid obesity 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 Primary hypertension Unspecified essential hypertension Dysthymic disorder Yeast dermatitis Candidiasis of skin and nails Encounter for therapeutic drug monitoring documented in this encounter [facility] note* Diagnosis Obesity, Class III, BMI >= 40 Morbid obesity documented in this encounter [facility] note* Diagnosis Obesity, Class III, BMI >= 40 Morbid obesity documented in this encounter [facility] note* Diagnosis Primary hypertension Unspecified essential hypertension documented in this encounter [facility] note* Diagnosis Generalized weakness- Primary Alcohol abuse Nondependent alcohol abuse, unspecified drinking behavior documented in this encounter [facility] Work Phone: Evaluation note* Diagnosis 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 documented in this encounter [facility] note* Diagnosis Encounter for therapeutic drug monitoring- Primary documented in this encounter [facility] note* Diagnosis Primary hypertension- Primary Unspecified essential hypertension 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 Dysthymic disorder Obesity, Class I, BMI 30-34.9 Obesity, unspecified Arthritis Arthropathy, unspecified, site unspecified Other insomnia Encounter for therapeutic drug monitoring documented in this encounter [facility] note* Diagnosis 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 [facility]* Diagnosis Other insomnia documented in this encounter [facility] note* Diagnosis 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 documented in this encounter [facility] note* Diagnosis Hyponatremia- Primary Hyposmolality and/or hyponatremia Hypokalemia Hypopotassemia Hypomagnesemia Disorders of magnesium metabolism Primary hypertension Unspecified essential hypertension 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 Closed fracture of right ankle with delayed healing, subsequent encounter Encounter for therapeutic drug monitoring documented in this encounter [facility] note* Diagnosis Other insomnia documented in this encounter [facility] note* Diagnosis Encounter for screening mammogram for breast cancer documented in this encounter [facility] note* Diagnosis Obesity, Class I, BMI 30-34.9- Primary Obesity, unspecified documented in this encounter [facility] note* Diagnosis Acute pancreatitis without infection or necrosis, unspecified pancreatitis type- Primary Nausea and vomiting, unspecified vomiting type documented in this encounter [facility] note* Diagnosis Acute pancreatitis without infection or necrosis, unspecified pancreatitis type- Primary Nausea and vomiting, unspecified vomiting type Primary hypertension Unspecified essential hypertension documented in this encounter [facility] note* Diagnosis Closed fracture of right ankle with delayed healing, subsequent encounter documented in this encounter [facility] note* Diagnosis 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 documented in this encounter [facility] note* Diagnosis Closed fracture of right ankle with delayed healing, subsequent encounter documented in this encounter [facility] note* Diagnosis Other insomnia documented in this encounter [facility]* Diagnosis Fall on ice- Primary Acute pancreatitis, unspecified complication status, unspecified pancreatitis type (HCC) Closed fracture of multiple ribs of left side with routine healing, subsequent encounter Hospital discharge follow-up Other follow-up examination Jaundice Jaundice, unspecified, not of Primary hypertension Unspecified essential hypertension 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 Acute pancreatitis without infection or necrosis, unspecified pancreatitis type (HCC) Nausea and vomiting, unspecified vomiting type Encounter for therapeutic drug monitoring Pancreatic pseudocyst (HCC) Cyst and pseudocyst of pancreas documented in this encounter [facility] note* Diagnosis 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 [facility] encounter [facility]* Diagnosis Jaundice- Primary Jaundice, unspecified, not of Acute pancreatitis, unspecified complication status, unspecified pancreatitis type (HCC) documented in this encounter [facility]* Diagnosis Jaundice- Primary Jaundice, unspecified, not of Acute pancreatitis, unspecified complication status, unspecified pancreatitis type (HCC) Encounter for therapeutic drug monitoring documented in this encounter [facility] note* Diagnosis Closed fracture of multiple ribs of left side with routine healing, subsequent encounter Acute pancreatitis without infection or necrosis, unspecified pancreatitis type (HCC) documented [facility] this encounter [facility]* Diagnosis Jaundice- Primary Jaundice, unspecified, not of Hypokalemia Hypopotassemia Acute pancreatitis without infection or necrosis, unspecified pancreatitis type (HCC) Elevated liver function tests Other abnormal blood chemistry documented in this encounter [facility]* Diagnosis Closed fracture of multiple ribs of left side with routine healing, subsequent encounter Acute pancreatitis without infection or necrosis, unspecified pancreatitis type (HCC) documented in this encounter [facility]* Diagnosis Closed fracture of multiple ribs of left side with routine healing, subsequent encounter Acute pancreatitis without infection or necrosis, unspecified pancreatitis type (HCC) Other insomnia [facility]* Diagnosis Chronic pancreatitis, unspecified pancreatitis type (HCC) Closed fracture of multiple ribs of left side with routine healing, subsequent encounter documented in this encounter [facility]* Diagnosis Acute pancreatitis without infection or necrosis, unspecified pancreatitis type (HCC) Nausea and vomiting, unspecified vomiting type 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 Chronic pancreatitis, unspecified pancreatitis type (HCC) Closed fracture of multiple ribs of left side with routine healing, subsequent encounter documented in this encounter [facility] course Narrative No data available for this section [facility] Reason for referral (narrative)* Consultation (Routine) - Authorized Specialty Diagnoses / Procedures Referred By Emilia birmingham Referred To Contact Family Medicine / Primary Care Pollo Verma, DO [address] [place] [address] Department [place] [address] Referral ID Status Reason Start Date Expiration Date Visits Requested Visits Authorized [id number] Authorized Specialty Services Required 08/21/2023 08/20/2024 1 1 [facility] Work Phone: Reason for referral (narrative)* Diagnostic Procedure Only (Routine) - New Request Specialty Diagnoses / Procedures Referred By Emilia t Referred To Contact [facility] Diagnoses Encounter for screening mammogram for breast cancer Procedures HOLA SCREENING W BRENDA SCREENING DIGITAL BREAST TOMOSYNTHESIS BI SCREENING MAMMOGRAPHY BI 2-VIEW BREAST INC CAD Alirio Woodson APRN.CNP [address] [place] [address] [facility] [address] [place] [address] Referral ID Status Reason Start Date Expiration Date Visits Requested Visits Authorized [id number] New Request Auto-Generat ed Referral 03/29/2024 04/28/2025 1 1 [facility] for referral (narrative)No reason for referral information availableWKnox Community Hospital Work Phone: Summary Purpose Family History Relationship Condition Age at Onset Recorded Date/T aubrey Not Specified Alcoholism Unknown Advance Directives Advance Directive Response Recorded Date/ Time Living Will No September 07, 2 023 1:38pm Power of Workers' Compensation Commissioner No September 07, 2022 1:38pm Advance Directive Response Recorded Date/ Time Living Will No September 07, 2 023 2:38pm Power of Workers' Compensation Commissioner No September 07, 2022 2:38pm Advance Directive Response Recorded Date/ Time Living Will No October 14, 2024 2:20am Do you have a Healthcare Power of Workers' Compensation Commissioner? No October 14, 2024 2:20am Living Will No July 24, 2 024 10:23pm Do you have a Healthcare Power of Workers' Compensation Commissioner? No July 24, 2024 10:23pm Advance Directive Response Recorded Date/ Time Living Will No October 14, 2024 2:20am Do you have a Healthcare Power of Workers' Compensation Commissioner? No October 14, 2024 2:20am Chief Complaint and Reason for Visit Chief Complaint R ANKLE INJURY Chief Complaint PRE-OP Chief Complaint PRE-OP PRE-OP RECHECK LABS Chief Complaint Admit Date ALCOHOL WITHDRAWAL July 24, 2024 7:27pm substance July 24, 2024 7:32pm ALCOHOL WITHDRAWAL July 25, 2024 9:56am ALCOHOL WITHDRAWAL July 26, 2024 9: 41am chest pain October 14, 2024 2:1 7am Reason for Visit Admit Date Fall July 24, 2024 7:27pm Hypokalemia July 24, 2024 7:27pm Alcohol abuse July 24, 2024 7:27pm COVID-19 July 24, 2024 7:27pm Chief Complaint Admit Date chest pain October 14, 2024 2:1 7am Jaundice December 20, 2024 10:01 am Reason for Referral Specialty Diagnoses / Procedures Referred By Contac t Referred To Contact Diagnoses History of breast cancer Procedures CONSULT TO HEMATOLOGY/ONCOLOGY OFFICE/OUTPATIENT [facility] 60-74 MINUTES Alirio Woodson APRN.ELECTRICAL INTEGRATOR [address] [place] [address] Referral ID Status Reason Start Date Expiration Date Visits Requested Visits Authorized [id number] Pending Review PCP Requested Referral 12/02/2022 12/02/2023 1 1 Specialty Diagnoses / Procedures Referred By Contac t Referred To Contact Diagnoses Obesity, Class III, BMI 40-49.9 (morbid obesity) (HCC) Alirio Woodson APRN.ELECTRICAL INTEGRATOR [address] [place] [address] Referral ID Status Reason Start Date Expiration Date Visits Re quested Visits Authorized [id number] Closed 1 1 Referral ID Status Reason Start Date Expiration Date Visits Re quested Visits Authorized [id number] Closed 1 1 Referral ID Status Reason Start Date Expiration Date Visits Re quested Visits Authorized [id number] Closed 1 1 Referral ID Status Reason Start Date Expiration Date Visits Re quested Visits Authorized [id number] Closed 1 1 Specialty Diagnoses / Procedures Referred By Contac t Referred To Contact Diagnoses Obesity, Class I, BMI 30-34.9 Alirio Woodson APRN.ELECTRICAL INTEGRATOR [address] [place] [address] Referral ID Status Reason Start Date Expiration Date V isits Requested Visits Authorized [id number] Pending Review 04/18/2024 06/17/2024 1 1 Additional Source Comments INFORMATION SOURCE (unrecogn ized section and content) DATE CREATED AUTHOR 01/13/2018 [facility] DATE CREATED AUTHOR AUTHOR'S ORGANIZ ATION 01/17/2018 [facility] DATE CREATED AUTHOR AUTHOR'S ORGANIZ ATION 01/18/2018 [facility] DATE CREATED AUTHOR AUTHOR'S ORGANIZ ATION 05/25/2019 [facility] DATE CREATED AUTHOR AUTHOR'S ORGANIZ ATION 06/05/2019 [facility] DATE CREATED AUTHOR AUTHOR'S ORGANIZ ATION 08/26/2023 [facility] DATE CREATED AUTHOR AUTHOR'S ORGANIZ ATION 05/19/2024 [facility] DATE CREATED AUTHOR AUTHOR'S ORGANIZ ATION 10/18/2024 [facility] DATE CREATED AUTHOR AUTHOR'S ORGANIZ ATION 10/28/2024 [facility] DATE CREATED AUTHOR AUTHOR'S ORGANIZ ATION 12/21/2024 [facility] DATE CREATED AUTHOR AUTHOR'S ORGANIZ ATION 12/23/2024 [facility] Care Teams (unrecognized sec tion and content) Team Status: Active Member Role Status Dates No Primary Care Physician Primary Care Provider Active Team Status: Inactive Member Role Status Dates No Primary Care Physician Primary Care Provider Active Dr. Alona Diaz , DO Emergency Provider Active Pulp Refiner Operator Relationship Specialty Start Date End Date Alirio Woodson APRN.ELECTRICAL INTEGRATOR [address] [place] [address] PCP - General Internal Medicine 12/02/22 Pulp Refiner Operator Relationship Specialty Start Date End Date Alirio Woodson APRN.ELECTRICAL INTEGRATOR [address] [place] [address] PCP - General Internal Medicine 12/02/22 Pulp Refiner Operator Relationship Specialty Start Date End Date Alirio Woodson APRN.ELECTRICAL INTEGRATOR [address] [place] [address] PCP - General Internal Medicine 12/02/22 Pulp Refiner Operator Relationship Specialty Start Date End Date Alirio Woodson APRN.ELECTRICAL INTEGRATOR [address] [place] [phone] PCP - General Internal Medicine 12/02/22 Pulp Refiner Operator Relationship Specialty Start Date End Date Alirio Woodson APRN.ELECTRICAL INTEGRATOR [address] [place] [phone] PCP - General Internal Medicine 12/02/22 Pulp Refiner Operator Relationship Specialty Start Date End Date Alirio Woodson APRN.ELECTRICAL INTEGRATOR [address] [place] [phone] PCP - General Internal Medicine 12/02/22 Pulp Refiner Operator Relationship Specialty Start Date End Date Alirio Woodson APRN.ELECTRICAL INTEGRATOR [address] [place] [phone] PCP - General Internal Medicine 12/02/22 Team Status: Inactive Member Role Status Dates No Primary Care Physician Primary Care Provider Active Dr. Brendan Moon MD Attending Provider, Referring [facility] Active Team Status: Active Member Role Status Dates Alirio Woodson STEWARD/STEWARDESS BATH, STEWARD/STEWARDESS BATH-C Primary Care Provider Active Team Status: Inactive Member Role Status Dates Dr. John Paul Urbina MD Attending Provider, Refe ing Provider Active Alirio Woodson STEWARD/STEWARDESS BATH, STEWARD/STEWARDESS BATH-C Primary Care Provider Active Pulp Refiner Operator Relationship Specialty Start Date End Date Alirio Woodson APRN.ELECTRICAL INTEGRATOR [address] [place] [id number] PCP - General Internal Medicine 12/02/22 Pulp Refiner Operator Relationship Specialty Start Date End Date Alirio Woodson APRN.ELECTRICAL INTEGRATOR [address] [place] [id number] PCP - General Internal Medicine 12/02/22 Pulp Refiner Operator Relationship Specialty Start Date End Date Alirio Woodson APRN.ELECTRICAL INTEGRATOR [address] [place] [phone] PCP - General Internal Medicine 12/02/22 Pulp Refiner Operator Relationship Specialty Start Date End Date Alirio Woodson APRN.ELECTRICAL INTEGRATOR [address] [place] [phone] PCP - General Internal Medicine 12/02/22 Pulp Refiner Operator Relationship Specialty Start Date End Date Alirio Woodson MECHANICAL ENGINEERING ADVISOR.ELECTRICAL INTEGRATOR [address] [place] [id number] PCP - General Internal Medicine 12/02/22 Pulp Refiner Operator Relationship Specialty Start Date End Date Alirio Woodson APRN.ELECTRICAL INTEGRATOR [address] [place] [phone] PCP - General Internal Medicine 12/02/22 Pulp Refiner Operator Relationship Specialty Start Date End Date Generic Provider, No Assigned Pcp, [address] [place] [address] PCP - General Internal Medicine 08/21/23 Pulp Refiner Operator Relationship Specialty Start Date End Date Alirio Woodson APRN.ELECTRICAL INTEGRATOR [address] [place] [phone] PCP - General Internal Medicine 12/02/22 Pulp Refiner Operator Relationship Specialty Start Date End Date Alirio Woodson MECHANICAL ENGINEERING ADVISOR.ELECTRICAL INTEGRATOR [address] [place] [phone] PCP - General Internal Medicine 12/02/22 Pulp Refiner Operator Relationship Specialty Start Date End Date Alirio Woodson MECHANICAL ENGINEERING ADVISOR.ELECTRICAL INTEGRATOR [address] [place] [phone] PCP - General Internal Medicine 12/02/22 Pulp Refiner Operator Relationship Specialty Start Date End Date Alirio Woodson APRN.ELECTRICAL INTEGRATOR [address] [place] [id number] PCP - General Internal Medicine 12/02/22 Pulp Refiner Operator Relationship Specialty Start Date End Date Alirio Woodson APRN.ELECTRICAL INTEGRATOR [address] [place] [phone] PCP - General Internal Medicine 12/02/22 Pulp Refiner Operator Relationship Specialty Start Date End Date Alirio Woodson APRN.ELECTRICAL INTEGRATOR [address] [place] [phone] PCP - General Internal Medicine 12/02/22 Pulp Refiner Operator Relationship Specialty Start Date End Date Alirio Woodson APRN.ELECTRICAL INTEGRATOR [address] [place] [phone] PCP - General Internal Medicine 12/02/22 Pulp Refiner Operator Relationship Specialty Start Date End Date Alirio Woodson APRN.ELECTRICAL INTEGRATOR [address] [place] [phone] PCP - General Internal Medicine 12/02/22 Pulp Refiner Operator Relationship Specialty Start Date End Date Alirio Woodson APRN.ELECTRICAL INTEGRATOR [address] [place] [phone] PCP - General Internal Medicine 12/02/22 Pulp Refiner Operator Relationship Specialty Start Date End Date Alirio Woodson APRN.ELECTRICAL INTEGRATOR [address] [place] [phone] PCP - General Internal Medicine 12/02/22 Pulp Refiner Operator Relationship Specialty Start Date End Date Alirio Woodson APRN.ELECTRICAL INTEGRATOR [address] [place] [phone] PCP - General Internal Medicine 12/02/22 Pulp Refiner Operator Relationship Specialty Start Date End Date Alirio Woodson APRN.ELECTRICAL INTEGRATOR [address] [place] [address] [place] [address] PCP - General Internal Medicine 12/02/22 Pulp Refiner Operator Relationship Specialty Start Date End Date Alirio Woodson APRN.ELECTRICAL INTEGRATOR [address] [place] [address] PCP - General Internal Medicine 12/02/22 Pulp Refiner Operator Relationship Specialty Start Date End Date Alirio Woodson MECHANICAL ENGINEERING ADVISOR.ELECTRICAL INTEGRATOR [address] [place] [address] PCP - General Internal Medicine 12/02/22 Pulp Refiner Operator Relationship Specialty Start Date End Date Alirio Woodson APRN.ELECTRICAL INTEGRATOR [address] [place] [address] PCP - General Internal Medicine 12/02/22 Pulp Refiner Operator Relationship Specialty Start Date End Date Alirio Woodson MECHANICAL ENGINEERING ADVISOR.ELECTRICAL INTEGRATOR [address] [place] [address] PCP - General Internal Medicine 12/02/22 Pulp Refiner Operator Relationship Specialty Start Date End Date Alirio Woodson APRN.ELECTRICAL INTEGRATOR [address] [place] [address] PCP - General Internal Medicine 12/02/22 Pulp Refiner Operator Relationship Specialty Start Date End Date Alirio Woodson MECHANICAL ENGINEERING ADVISOR.ELECTRICAL INTEGRATOR [address] [place] [address] PCP - General Internal Medicine 12/02/22 Team Status: Inactive Member Role Status Dates Alirio Woodson STEWARD/STEWARDESS BATH, STEWARD/STEWARDESS BATH-C Primary Care Provider Active Start: July 24, 2024 End: July 26, 2024 Dr. Alvino Mercado , DO Emergency Provider Activ e Start: July 24, 2024 End: July 26, 2024 Dr. Dung Gómez DO Admit Provider Active Star t: July 24, 2024 End: July 26, 2024 Dr. Dung Gómez DO Other Provider Active Star t: July 24, 2024 End: July 26, 2024 Dr. Ash Oneil MD Attending Provider Active Start: July 24, 2024 End: July 26, 2024 Team Status: Active Member Role Status Dates Alirio Woodson STEWARD/STEWARDESS BATH, STEWARD/STEWARDESS BATH-C Primary Care Provider Active Start: July 24, 2024 Dr. Alvino Mercado DO Emergency Provider Activ e Start: July 24, 2024 Dr. Dung Gómez DO Attending Provider Active Start: July 24, 2024 Team Status: Active Member Role Status Dates Alirio Woodson STEWARD/STEWARDESS BATH, STEWARD/STEWARDESS BATH-C Primary Care Provider Active Start: July 25, 2024 Dr. Alvino Mercado DO Emergency Provider Activ e Start: July 25, 2024 Dr. Dung Gómez DO Admit Provider Active Star t: July 25, 2024 Dr. Dung Gómez DO Other Provider Active Star t: July 25, 2024 Dr. Ash Oneil MD Attending Provider Active Start: July 25, 2024 Dr. Ash Oneil MD Other Provider Active Start: July 25, 2024 Team Status: Active Member Role Status Dates Alirio Woodson STEWARD/STEWARDESS BATH, STEWARD/STEWARDESS BATH-C Primary Care Provider Active Start: July 26, 2024 Dr. Alvino Mercado DO Emergency Provider Activ e Start: July 26, 2024 Dr. Dung Gómez DO Admit Provider Active Star t: July 26, 2024 Dr. Dung Gómez DO Other Provider Active Star t: July 26, 2024 Dr. Ash Oneil MD Attending Provider Active Start: July 26, 2024 Dr. Ash Oneil MD Other Provider Active Start: July 26, 2024 Team Status: Inactive Member Role Status Dates Alirio Woodson STEWARD/STEWARDESS BATH, STEWARD/STEWARDESS BATH-C Primary Care Provider Active Start: October 14, 2024 End: October 14, 2024 Dr. Alvino Mercado DO Emergency Provider Activ e Start: October 14, 2024 End: October 14, 2024 Pulp Refiner Operator Relationship Specialty Start Date End Date Alirio Woodson APRN.ELECTRICAL INTEGRATOR [address] [place] [address] PCP - General Internal Medicine 12/02/22 Pulp Refiner Operator Relationship Specialty Start Date End Date Alirio Woodson APRN.ELECTRICAL INTEGRATOR [address] [place] [address] PCP - General Internal Medicine 12/02/22 Pulp Refiner Operator Relationship Specialty Start Date End Date Alirio Woodson APRN.ELECTRICAL INTEGRATOR [address] [place] [address] PCP - General Internal Medicine 12/02/22 Pulp Refiner Operator Relationship Specialty Start Date End Date Alirio Woodson APRN.ELECTRICAL INTEGRATOR [address] [place] [address] PCP - General Internal Medicine 12/02/22 Pulp Refiner Operator Relationship Specialty Start Date End Date Alirio Woodson APRN.ELECTRICAL INTEGRATOR [address] [place] [address] PCP - General Internal Medicine 12/02/22 Pulp Refiner Operator Relationship Specialty Start Date End Date Alirio Woodson APRN.ELECTRICAL INTEGRATOR [address] [place] [address] PCP - General Internal Medicine 12/02/22 Team Status: Inactive Member Role Status Dates Alirio Woodson STEWARD/STEWARDESS BATH, STEWARD/STEWARDESS BATH-C Primary Care Provider Active Start: October 14, 2024 End: October 14, 2024 Dr. Alvino Mercado , DO Attending Provider Activ e Start: October 14, 2024 End: October 14, 2024 Dr. Alvino Mercado , DO Emergency Provider Activ e Start: October 14, 2024 End: October 14, 2024 Team Status: Inactive Member Role Status Dates Alirio Woodson NP STEWARD/STEWARDESS BATH-C Primary Care Provider Active Start: December 20, 2024 End: December 20, 2024 Alirio Woodson NP, NP-C Referring Provider Active Start: December 20, 2024 End: December 20, 2024 Dr. Chuy Sims MD Attending Provider Active Start: December 20, 2024 End: December 20, 2024 Pulp Refiner Operator Relationship Specialty Start Date End Date Alirio Woodson APRN.ELECTRICAL INTEGRATOR [address] [place], [place] [id number] PCP - General Internal Medicine 12/02/22 Pulp Refiner Operator Relationship Specialty Start Date End Date Alirio Woodson APRN.ELECTRICAL INTEGRATOR [address] [place], [place] [address] PCP - General Internal Medicine 12/02/22 Goals (unrecognized section and content) Goals may be documented in a n alternate sectionGoals may be documented in an alternate sectionGoals may be documented in an alternate section No data available for this sectionGoals may be documented in an alternate section Source Comments (unrecognize d section and content) In the event this informatio n is protected by the Federal Confidentiality of Alcohol and Drug Abuse Patient Records regulations: The Federal rules restrict any use of the information to criminally investigate or prosecute any alcohol or drug abuse patient.[facility] Hospital[facility] the event this information is protected by the Federal Confidentiality of Alcohol and Drug Abuse Patient Records regulations: The Federal rules restrict any use of the information to criminally investigate or prosecute any alcohol or drug abuse patient.[facility] HospitalIn the event this information is protected by the Federal Confidentiality of Alcohol and Drug Abuse Patient Records regulations: The Federal rules restrict any use of the information to criminally investigate or prosecute any alcohol or drug abuse patient.[facility] HospitalIn the event this information is protected by the Federal Confidentiality of Alcohol and Drug Abuse Patient Records regulations: The Federal rules restrict any use of the information to criminally investigate or prosecute any alcohol or drug abuse patient.[facility] HospitalIn the event this information is protected by the Federal Confidentiality of Alcohol and Drug Abuse Patient Records regulations: The Federal rules restrict any use of the information to criminally investigate or prosecute any alcohol or drug abuse patient.[facility] HospitalIn the event this information is protected by the Federal Confidentiality of Alcohol and Drug Abuse Patient Records regulations: The Federal rules restrict any use of the information to criminally investigate or prosecute any alcohol or drug abuse patient.[facility] HospitalIn the event this information is protected by the Federal Confidentiality of Alcohol and Drug Abuse Patient Records regulations: The Federal rules restrict any use of the information to criminally investigate or prosecute any alcohol or drug abuse patient.[facility] HospitalIn the event this information is protected by the Federal Confidentiality of Alcohol and Drug Abuse Patient Records regulations: The Federal rules restrict any use of the information to criminally investigate or prosecute any alcohol or drug abuse patient.[facility] HospitalIn the event this information is protected by the Federal Confidentiality of Alcohol and Drug Abuse Patient Records regulations: The Federal rules restrict any use of the information to criminally investigate or prosecute any alcohol or drug abuse patient.[facility] HospitalIn the event this information is protected by the Federal Confidentiality of Alcohol and Drug Abuse Patient Records regulations: The Federal rules restrict any use of the information to criminally investigate or prosecute any alcohol or drug abuse patient.[facility] HospitalIn the event this information is protected by the Federal Confidentiality of Alcohol and Drug Abuse Patient Records regulations: The Federal rules restrict any use of the information to criminally investigate or prosecute any alcohol or drug abuse patient.[facility] HospitalIn the event this information is protected by the Federal Confidentiality of Alcohol and Drug Abuse Patient Records regulations: The Federal rules restrict any use of the information to criminally investigate or prosecute any alcohol or drug abuse patient.[facility] HospitalIn the event this information is protected by the Federal Confidentiality of Alcohol and Drug Abuse Patient Records regulations: The Federal rules restrict any use of the information to criminally investigate or prosecute any alcohol or drug abuse patient.[facility] HospitalIn the event this information is protected by the Federal Confidentiality of Alcohol and Drug Abuse Patient Records regulations: The Federal rules restrict any use of the information to criminally investigate or prosecute any alcohol or drug abuse patient.[facility] HospitalIn the event this information is protected by the Federal Confidentiality of Alcohol and Drug Abuse Patient Records regulations: The Federal rules restrict any use of the information to criminally investigate or prosecute any alcohol or drug abuse patient.[facility] HospitalIn the event this information is protected by the Federal Confidentiality of Alcohol and Drug Abuse Patient Records regulations: The Federal rules restrict any use of the information to criminally investigate or prosecute any alcohol or drug abuse patient.[facility] HospitalIn the event this information is protected by the Federal Confidentiality of Alcohol and Drug Abuse Patient Records regulations: The Federal rules restrict any use of the information to criminally investigate or prosecute any alcohol or drug abuse patient.[facility] HospitalIn the event this information is protected by the Federal Confidentiality of Alcohol and Drug Abuse Patient Records regulations: The Federal rules restrict any use of the information to criminally investigate or prosecute any alcohol or drug abuse patient.[facility] HospitalIn the event this information is protected by the Federal Confidentiality of Alcohol and Drug Abuse Patient Records regulations: The Federal rules restrict any use of the information to criminally investigate or prosecute any alcohol or drug abuse patient.[facility] HospitalIn the event this information is protected by the Federal Confidentiality of Alcohol and Drug Abuse Patient Records regulations: The Federal rules restrict any use of the information to criminally investigate or prosecute any alcohol or drug abuse patient.[facility] HospitalIn the event this information is protected by the Federal Confidentiality of Alcohol and Drug Abuse Patient Records regulations: The Federal rules restrict any use of the information to criminally investigate or prosecute any alcohol or drug abuse patient.[facility] HospitalIn the event this information is protected by the Federal Confidentiality of Alcohol and Drug Abuse Patient Records regulations: The Federal rules restrict any use of the information to criminally investigate or prosecute any alcohol or drug abuse patient.[facility] HospitalIn the event this information is protected by the Federal Confidentiality of Alcohol and Drug Abuse Patient Records regulations: The Federal rules restrict any use of the information to criminally investigate or prosecute any alcohol or drug abuse patient.[facility] HospitalIn the event this information is protected by the Federal Confidentiality of Alcohol and Drug Abuse Patient Records regulations: The Federal rules restrict any use of the information to criminally investigate or prosecute any alcohol or drug abuse patient.[facility] HospitalIn the event this information is protected by the Federal Confidentiality of Alcohol and Drug Abuse Patient Records regulations: The Federal rules restrict any use of the information to criminally investigate or prosecute any alcohol or drug abuse patient.[facility] HospitalIn the event this information is protected by the Federal Confidentiality of Alcohol and Drug Abuse Patient Records regulations: The Federal rules restrict any use of the information to criminally investigate or prosecute any alcohol or drug abuse patient.[facility] HospitalIn the event this information is protected by the Federal Confidentiality of Alcohol and Drug Abuse Patient Records regulations: The Federal rules restrict any use of the information to criminally investigate or prosecute any alcohol or drug abuse patient.[facility] HospitalIn the event this information is protected by the Federal Confidentiality of Alcohol and Drug Abuse Patient Records regulations: The Federal rules restrict any use of the information to criminally investigate or prosecute any alcohol or drug abuse patient.[facility] HospitalIn the event this information is protected by the Federal Confidentiality of Alcohol and Drug Abuse Patient Records regulations: The Federal rules restrict any use of the information to criminally investigate or prosecute any alcohol or drug abuse patient.[facility] HospitalIn the event this information is protected by the Federal Confidentiality of Alcohol and Drug Abuse Patient Records regulations: The Federal rules restrict any use of the information to criminally investigate or prosecute any alcohol or drug abuse patient.[facility] HospitalIn the event this information is protected by the Federal Confidentiality of Alcohol and Drug Abuse Patient Records regulations: The Federal rules restrict any use of the information to criminally investigate or prosecute any alcohol or drug abuse patient.[facility] HospitalIn the event this information is protected by the Federal Confidentiality of Alcohol and Drug Abuse Patient Records regulations: The Federal rules restrict any use of the information to criminally investigate or prosecute any alcohol or drug abuse patient.[facility] HospitalIn the event this information is protected by the Federal Confidentiality of Alcohol and Drug Abuse Patient Records regulations: The Federal rules restrict any use of the information to criminally investigate or prosecute any alcohol or drug abuse patient.[facility] HospitalIn the event this information is protected by the Federal Confidentiality of Alcohol and Drug Abuse Patient Records regulations: The Federal rules restrict any use of the information to criminally investigate or prosecute any alcohol or drug abuse patient.[facility] HospitalIn the event this information is protected by the Federal Confidentiality of Alcohol and Drug Abuse Patient Records regulations: The Federal rules restrict any use of the information to criminally investigate or prosecute any alcohol or drug abuse patient.[facility] HospitalIn the event this information is protected by the Federal Confidentiality of Alcohol and Drug Abuse Patient Records regulations: The Federal rules restrict any use of the information to criminally investigate or prosecute any alcohol or drug abuse patient.[facility] HospitalIn the event this information is protected by the Federal Confidentiality of Alcohol and Drug Abuse Patient Records regulations: The Federal rules restrict any use of the information to criminally investigate or prosecute any alcohol or drug abuse patient.[facility] HospitalIn the event this information is protected by the Federal Confidentiality of Alcohol and Drug Abuse Patient Records regulations: The Federal rules restrict any use of the information to criminally investigate or prosecute any alcohol or drug abuse patient.[facility] HospitalIn the event this information is protected by the Federal Confidentiality of Alcohol and Drug Abuse Patient Records regulations: The Federal rules restrict any use of the information to criminally investigate or prosecute any alcohol or drug abuse patient.[facility] HospitalIn the event this information is protected by the Federal Confidentiality of Alcohol and Drug Abuse Patient Records regulations: The Federal rules restrict any use of the information to criminally investigate or prosecute any alcohol or drug abuse patient.[facility] HospitalIn the event this information is protected by the Federal Confidentiality of Alcohol and Drug Abuse Patient Records regulations: The Federal rules restrict any use of the information to criminally investigate or prosecute any alcohol or drug abuse patient.[facility] HospitalIn the event this information is protected by the Federal Confidentiality of Alcohol and Drug Abuse Patient Records regulations: The Federal rules restrict any use of the information to criminally investigate or prosecute any alcohol or drug abuse patient.[facility] HospitalIn the event this information is protected by the Federal Confidentiality of Alcohol and Drug Abuse Patient Records regulations: The Federal rules restrict any use of the information to criminally investigate or prosecute any alcohol or drug abuse patient.[facility] HospitalIn the event this information is protected by the Federal Confidentiality of Alcohol and Drug Abuse Patient Records regulations: The Federal rules restrict any use of the information to criminally investigate or prosecute any alcohol or drug abuse patient.[facility] HospitalIn the event this information is protected by the Federal Confidentiality of Alcohol and Drug Abuse Patient Records regulations: The Federal rules restrict any use of the information to criminally investigate or prosecute any alcohol or drug abuse patient.[facility] HospitalIn the event this information is protected by the Federal Confidentiality of Alcohol and Drug Abuse Patient Records regulations: The Federal rules restrict any use of the information to criminally investigate or prosecute any alcohol or drug abuse patient.[facility] HospitalIn the event this information is protected by the Federal Confidentiality of Alcohol and Drug Abuse Patient Records regulations: The Federal rules restrict any use of the information to criminally investigate or prosecute any alcohol or drug abuse patient.[facility] HospitalIn the event this information is protected by the Federal Confidentiality of Alcohol and Drug Abuse Patient Records regulations: The Federal rules restrict any use of the information to criminally investigate or prosecute any alcohol or drug abuse patient.[facility] HospitalIn the event this information is protected by the Federal Confidentiality of Alcohol and Drug Abuse Patient Records regulations: The Federal rules restrict any use of the information to criminally investigate or prosecute any alcohol or drug abuse patient.[facility] HospitalIn the event this information is protected by the Federal Confidentiality of Alcohol and Drug Abuse Patient Records regulations: The Federal rules restrict any use of the information to criminally investigate or prosecute any alcohol or drug abuse patient.[facility] Reason for Visit (unrecogniz ed section and content) Reason Comments 4 week follow up Specialty Diagnoses / Procedures Referred By Emilia birmingham Referred To Contact Internal Medicine / INTERNAL MEDICINE Diagnoses Follow-up examination 4 wk f/u alirio Procedures OFFICE/OUTPATIENT ESTABLISHED MOD MDM 30-39 MIN 4C EST Alirio Woodson APRN.ELECTRICAL INTEGRATOR [address] [place] [address] Alirio Woodson APRN.ELECTRICAL INTEGRATOR [address] [place] [address] Referral ID Status Reason Start Date Expiration Date Visits Re quested Visits Authorized [id number] Closed 12/29/2022 07/25/2023 1 1 Reason Comments Establish Care Specialty Diagnoses / Procedures Referred By Emilia birmingham Referred To Contact Internal Medicine / INTERNAL MEDICINE Diagnoses Encounter to establish care est care Procedures OFFICE/OUTPATIENT NEW MODERATE MDM 45-59 MINUTES 4C NEW WELL Self Alirio Woodson APRN.ELECTRICAL INTEGRATOR [address] [place] [address] Referral ID Status Reason Start Date Expiration Date Visits Re quested Visits Authorized [id number] Closed 12/02/2022 07/25/2023 1 1 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 Comments Results Reason Comments Recheck blood pressure and t hyroid Specialty Diagnoses / Procedures Referred By Contreva t Referred To Contact Internal Medicine / INTERNAL MEDICINE Diagnoses Follow-up examination 4 wk f/u alirio Procedures OFFICE/OUTPATIENT ESTABLISHED MOD MDM 30-39 MIN 4C EST Alirio Woodson APRN.ELECTRICAL INTEGRATOR [address] [place] [address] Alirio Woodson APRN.ELECTRICAL INTEGRATOR [address] [place] [address] Reason Comments Recheck blood pressure and t hyroid Weight Problem Reason Comments Insurance Authorization [employer] Reason Comments Insurance Authorization Reason Comments Refill Request Reason Comments Weakness, Gen Patient to ED refere nce weakness and tired since early in the week and having intermittent double vision that started this morning. She has a history of drinking. Reason Comments Recheck Right Hip Pain had been seeing Dr. Sagastume and is needing a new referral for ortho Reason Onset Date Comments Refill Request 12/07/2023 Reason Onset Date Comments Refill Request 02/08/2024 Reason Onset Date Comments Refill Request 03/07/2024 Reason Comments Hospital Follow Up [facility] 02/19 for low sod ium, elevated liver enzymes, dehydration Reason Onset Date Comments Refill Request 03/31/2024 Reason Onset Date Comments Refill Request 04/18/2024 Reason Comments ER F/U [facility] 05/28/24 for wick creatitis Reason Comments Recheck Reason Onset Date Comments Refill Request 08/20/2024 Reason Onset Date Comments Refill Request 09/27/2024 Reason Comments Patient Update Reason Onset Date Comments Hospital F/U 10/18/2024 Reason Comments Hospital F/U [facility] 10/14 for pancreatitis Reason Onset Date Comments Refill Request 10/20/2024 Reason Onset Date Comments Refill Request 11/07/2024 Reason Onset Date Comments Results 11/21/2024 Reason Onset Date Comments Refill Request 11/22/2024 Reason Onset Date Comments Refill Request 12/07/2024 Reason Onset Date Comments Refill Request 12/08/2024 Reason Onset Date Comments Refill Request 01/11/2025 Scheduled Active and Recently Administ ered Medications (unrecognized section and content) Medication Order 08/19/2023 08/20/2023 08/21/2023 folic acid (Folvite) tablet 1 mg (COMPLETED) 1 mg, oral, Once, On 08/21/23 at 1430, For 1 dose 1437 (Given - Provid er: Nori Milton RN) multivitamin with minerals 1 tablet (COMPLETED) 1 tablet, oral, Once, On 08/21/23 at 1430, For 1 dose 1437 (Given - Provid er: Nori Milton RN) sodium chloride 0.9 % bolus 1,000 mL (COMPLETED) 1,000 mL, intravenous, at 1,000 mL/hr, Administer over 1 Hours, Once, On 08/21/23 at 1405, For 1 dose 1437 (New Bag - Prov ider: Nori Milton RN)1537 (Stopped - Provider: Braulio Burgess RN) thiamine (Vitamin B-1) tablet 100 mg (COMPLETED) 100 mg, oral, Once, On 08/21/23 at 1430, For 1 dose 1437 (Given - Provid er: Nori Milton RN) PRN Medication Order 08/19/2023 08/20/2023 08/21/2023 diazePAM (Valium) injection 10 mg 10 mg, intravenous, Administer over 3 Minutes, Every 2 hour PRN, CIWA score greater than 6 or HR greater than 100 BPM, Starting on 08/21/23 at 1428, Administer over 1-3 minutes, maximum rate is 5 mg per minute. 1442 (Given - Provid er: Nori Milton RN) FOR RECORDS PERTAINING TO PATIENTS WHO ARE OR HAVE BEEN ENROLLED IN A CHEMICAL DEPENDENCY/SUBSTANCEABUSE PROGRAM, SOME INFORMATION MAY BE OMITTED. This clinical summary was aggregated from multiple sources. Caution should be exercised in using it in the provision of clinical care. This summary normalizes information from multiple sources, and as a consequence, information in this document may materially change the coding, format and clinical context of patient data. In addition, data may be omitted in some cases. CLINICAL DECISIONS SHOULD BE BASED ON THE PRIMARY CLINICAL RECORDS. [employer] [facility]. provides no warranty or guarantee of the accuracy or completeness of information in this document.
[2025-02-04 00:34] LABS: Hematocrit 32.5 % (37-47); Hemoglobin 11.7 g/dL (12.0-15.0); Mean Corp Hgb Conc 36.0 g/dL (32-36); Mean Corpuscular Volume 94.8 fL (81-99); Mean Platelet Vol. 9.0 fl (6.2-12.0); POSITIVE COUNT YES; POSITIVE MORPHOLOGY YES; Platelet Count 177 K/mm3 (150-450); RBC Distribution Width CV 24.2 % (11.6-14.6); RBC Distribution Width SD 81.5 fl (35.1-43.9); Red Blood Count 3.43 M/mm3 (4.2-5.4); White Blood Count 11.3 K/mm3 (4.4-11.0)
[2025-02-04 00:41] LABS: Differential Indicated MANUAL DIFF
[2025-02-04 00:50] LABS: Prothrombin Time (Protime)PT. 26.6 SECONDS (11.7-14.9)
[2025-02-04 01:04] LABS: Ammonia 85.6 umol/L (11-51)
[2025-02-04 01:07] LABS: Lipase 56 U/L (13-75); Magnesium 2.0 mg/dL (1.5-2.2)
[2025-02-04 01:16] LABS: Alcohol, Blood (Medical)-Serum < 10.1 mg/dL (<=10.0)
[2025-02-04 01:23] LABS: AST(SGOT) 267 U/L (<=31); Alanine Aminotransfer ALT/SGPT 74 U/L (<=34); Albumin, Serum 2.9 g/dL (3.5-5.0); Alkaline Phosphatase 333 U/L (35-104); Anion Gap 20 (5-15); BUN 3 mg/dL (4-19); BUN/Creat Ratio 2.5 RATIO (10-20); Bilirubin, Direct 23.90 mg/dL (0.00-0.30); Calcium,Total 8.5 mg/dL (7.6-11.0); Carbon Dioxide 20.4 mmol/L (21.0-32.0); Chloride 77 mmol/L (98-108); Estimated Creatinine Clearance 61.99 ml/min (50-250); Globulin 3.4 g/dL (2.2-4.2); Glucose 128 mg/dL (70-99)
[2025-02-04 01:28] LABS: Neutrophil-Band 1 % (0-5); Neutrophil-Segmented 75 % (47-70); Total Cells Counted 100 (MANUAL DIFF)
[2025-02-04] MEDS: 0.9% Normal Saline (1000mL) 1,000 ML 1000 ML IV (01:39)
[2025-02-04] MEDS: Potassium Chloride 10mEq/100mL 10 MEQ/100 ML IV.SOLN. 100 MEQ IV BOLUS ×3 (01:39→04:10)
[2025-02-04 02:01] LABS: Mucous, Urine 0 SEEN /hpf (<or=2+); Red Blood Cells-Urine 0 SEEN /hpf (0-5)
[2025-02-04 02:06] LABS: Color, Urine Brown (Yellow); Glucose, Dipstick Normal (Normal); Ketone-Dipstick Negative (Negative); Leukocyte Esterase-Dipstick 25 /ul (Negative); Nitrite-Dipstick Positive (Negative); Occult Blood-Urine 25 /ul (Negative); Protein-Dipstick 30 mg/dl (Negative); Specific Gravity, Urine 1.010 (1.002-1.030)
[2025-02-04] MEDS: Lorazepam 2 MG/ML WCH Syringe 1 MG IV (02:17)
[2025-02-04 02:18] LABS: Urine Bilirubin Dipstick 6 mg/dL (Negative)
--- NOTE | 2025-02-04 02:28 | EKG12_ITS ---
Test Reason : DYSRHYTHMIA Blood Pressure : */* mmHG Vent. Rate : 88 BPM Atrial Rate : 88 BPM P-R Int : 184 ms QRS Dur : 76 ms QT Int : 448 ms P-R-T Axes : 57 25 55 degrees QTcB Int : 542 ms Normal sinus rhythm Possible Left atrial enlargement Low voltage QRS Septal infarct (cited on or before 14-Oct-2024) Prolonged QT Abnormal ECG Confirmed by CHANG HUSTON MD ([id number]), art editor CARMINE NUNEZ ([id number]) on 02/05/2025 11:36:46 AM Referred By: Confirmed By: CHANG HUSTON MD
[2025-02-04 02:42] LABS: Barbiturate Urine NEGATIVE (< 200 ng/mL); Benzodiazepine Urine NEGATIVE (< 200 ng/mL); PCP Urine NEGATIVE (< 25 ng/mL); THC Urine NEGATIVE (< 50 ng/mL)
[2025-02-04 02:46] LABS: Squamous Epithelial Cells - UA 5-10 SEEN /hpf (5-10)
[2025-02-04 02:48] LABS: Other Crystals-Urine 1+ /hpf (None Seen)
[2025-02-04 03:01] LABS: Troponin T High Sensitivity 17 ng/L (<=14)
--- NOTE | 2025-02-04 03:15 | RAD_ITS ---
PROCEDURE: CHEST 1 VIEW (PORTABLE) 02/04/2025 REASON FOR EXAM: SEPSIS TECHNIQUE: Frontal view of the chest. COMPARISON: None. FINDINGS: Right apical and midlung consolidative opacities suspicious for pneumonia. Left basilar opacities likely representing atelectasis. No acute osseous abnormalities. The heart is partially obscured due to low lung volumes. RAD/Chest 1 View (Portable) IMPRESSION: Pulmonary findings as above. Reading Location: [place] [id number]
[2025-02-04] MEDS: Meropenem 1 GM in 0.9% Normal Saline (100mL MB+) 100 ML IV (04:11)
[2025-02-04 04:31] LABS: Reflex Lactate? Y
--- NOTE | 2025-02-04 04:43 | PCA ---
PT ACCEPTED BY [facility] ICU BED 7
[2025-02-04 04:56] LABS: Troponin T High Sens 2 HR 13 ng/L (<=14)
[2025-02-05 00:30] LABS: Potassium 2.5 mmol/L (3.3-5.1)
== END 2025-02-04 05:33 | disposition short-term general hospital (02) ==
PROVIDERS: Emergency Provider Surgery; PCP Internal Medicine; Visit Provider Surgery
DX: R11.2 Nausea with vomiting, unspecified (principal); E88.89 Other specified metabolic disorders; K70.31 Alcoholic cirrhosis of liver with ascites; N39.0 Urinary tract infection, site not specified; I10 Essential (primary) hypertension; E86.0 Dehydration; Z87.891 Personal history of nicotine dependence; E72.20 Disorder of urea cycle metabolism, unspecified; E87.1 Hypo-osmolality and hyponatremia; E87.6 Hypokalemia; Z90.710 Acquired absence of both cervix and uterus; E80.7 Disorder of bilirubin metabolism, unspecified; Z85.3 Personal history of malignant neoplasm of breast; E03.9 Hypothyroidism, unspecified; Z79.890 Hormone replacement therapy; Z79.899 Other long term (current) drug therapy; Z90.10 Acquired absence of unspecified breast and nipple; D68.9 Coagulation defect, unspecified
CPT/HCPCS: 51702; 71045; 74177; 80048; 80076; 80307; 81001; 82077; 82140; 83605; 83690; 83735; 84484; 85025; 85610; 87040; 87077; 87086; 87088; 93005; 96361; 96365; 96366; 96367; 96375; 99285; J2185; Q9967; A4216; J2405